=== PATIENT | male | born 1950 | race Caucasian/White ===

== ENCOUNTER 2017-07-12 09:14 | Emergency (ER) | payer MEDICARE ==
[2017-07-12] MEDS ORDERED: Tetan/Diph/Pertus SYR(Tdap)* 0.5 ML SYR(BOOSTRIX) use SYR IM ONE (09:40)
--- NOTE | 2017-07-12 10:10 | UC ---
Dillon Lou SooYoung, scribed for Katty Villarreal MD on 07/12/17 at 0928 . Syncope/New Syncope HPI - HPI Summary HPI Summary: A 67 y/o M presents to [facility] [place] after syncopal episode with LOC onset this AM lasting approx one hour [employer]. Pt states that he stood up to get out of bed, he passed out and fell. He hit his head on something but is unsure what, perhaps his gun rack or clothes dresser. Associated sx: superficial lac to posterior head. Denies: CP, SOB, HUERTA, neck pain, nausea. Pt has numbness/tingling in extremities per baseline. No prev episodes of syncope. Denies heart dz. 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 He is not on blood thinners, aspirin. He is on home O2 all day and night. Last tetanus was approx 4-[address] De La Torre, but the date is uncertain. Agrees to have another today. - History Of Current Complaint Stated Complaint: FALL Hx Obtained From: Patient, Medical Records Onset/Duration: Sudden Onset, Resolved Activity At Onset: At Rest Frequency: Episodes x___ - 1 Context: Unwitnessed Associated Head Trauma: Yes Pain Intensity: 0 Pain Scale Used: 0-10 Numeric Associated Signs And Symptoms: Positive: Other - pos: head lac; neg: nausea. Negative: Chest Pain, Headache, Numbness, Shortness Of Breath - Risk Factors Cardiac Risk Factors: Family History Dysrhythmia Risk Factors: Age Greater Than 45 Risk Factor(s): Negative - Allergies/Home Medications Allergies/Adverse Reactions: Allergies Allergy/AdvReac Type Severity Reaction Status Date / Time Meperidine [From Demerol HCl] Allergy Hallucinati Verified 07/12/17 09:28 ons Home Medications: Home Medications Baclofen 5 mg PO DAILY PRN 07/12/17 [History Confirmed 07/12/17] PMH/Surg Hx/FS Hx/Imm Hx - Additional Past Medical History Additional PMH: has had negative stress test the past several years for coronary artery disease Previously Healthy: No Respiratory History: COPD Neurological History: Migraine - HUERTA, Other Other Neurological History: pontine lesion - Surgical History Surgical History: Yes Surgery Procedure, Year, and Place: appy at age 28 - Family History Known Family History: Positive: Other - brother: colon [place] - Social History Occupation: Retired Lives: With Family Alcohol Use: None Substance Use Type: Marijuana Smoking Status (MU): Heavy Every Day Tobacco Smoker - 1ppd Review of Systems Constitutional: Negative Skin: Other - lac to posterior head Eyes: Negative ENT: Negative Respiratory: Negative Cardiovascular: Negative Gastrointestinal: Negative Genitourinary: Negative Motor: Negative Neurovascular: Negative Musculoskeletal: Negative Neurological: Other - syncope with LOC; no persistent headache. No ataxia. Psychological: Negative Is Patient Immunocompromised?: No All Other Systems Reviewed And Are Negative: Yes Physical Exam Triage Information Reviewed: Yes Completion Of Physical Exam Limited Due To: Other - oxygen depenedent, mildly overweight elderly man. Looks stated age. Alert and oriented. Appearance: Ill-Appearing - looks chronically unwell Vital Signs: Initial Vital Signs Temp 98.4 F 07/12/17 09:18 Pulse 116 07/12/17 09:18 Resp 22 07/12/17 09:18 BP 167/81 07/12/17 09:18 Pulse Ox 95 07/12/17 09:18 Eyes: Positive: Conjunctiva Clear, Other: - GAVIN, cannot see fundi well. Normal EOM ENT: Positive: Pharynx normal, TMs normal Neck: Positive: Supple, Nontender, No Lymphadenopathy Respiratory: Positive: Decreased breath sounds - to both bases, but without crackle or wheeze. Mildly prolonged expiration Cardiovascular: Positive: RRR, No Murmur Abdomen Description: Positive: Nontender, Soft Musculoskeletal: Positive: Strength Intact, No Edema Neurological: Positive: Alert, Muscle Tone Normal, Other: - No pronator drift. Psychological Exam: Other - mildly irritable, but he describes himself as such at baseline. Skin Exam: Other - 12 mm superficial laceration left occipital area. Not full thickness, no associated hematoma. No active bleeding. Treated with glue with good approximation and no bleeding. Diagnostics - EKG Cardiac Rate: Tachycardia Cardiac Rhythm: Sinus: Normal Ectopy: None ST Segment: Normal Re-Evaluation - Re-Evaluation First Eval Re-Evaluation Time: 08:50 Change: Improved - bleeding stopped, alert and moving well. Syncope Course/Dx - Course Course Of Treatment: A 67 y/o M with COPD, pontine lesion presents after syncopal episode with LOC onset this AM lasting approx one hour. Reviewed Brain CT after head injury in 2008, and MRI report from 2006. Pt medications reviewed this visit. BP is elevated, PCP f/u recommended. - Differential Dx/Diagnosis Provider Diagnoses: 2. Elevated blood pressure without diagnosis of hypertension. Discharge - Discharge Plan Condition: Stable Disposition: AGAINST MEDICAL ADVICE Patient Education Materials: Diphtheria/Acellular Pertussis/Tetanus Booster Vaccine (By injection) Referrals: Kevin Green MD [Primary Care Provider] - Additional Instructions: Your blood pressure reading today was 167/81, which is HYPERTENSIVE. Follow-up with your primary care provider within 4 weeks for blood pressure readings and further evaluation. You have had a tetanus booster today because of your head wound. You ahve been advised to GO IMMEDIATELY TO THE EMERGENCY ROOM. IT IS ADVISED THAT YOU HAVE BRAIN IMAGING BECAUSE OF AN INJURY TO YOUR HEAD WITH LOSS OF CONSCIOUSNESS. YOU HAVE DELCINED AMBULANCE TRANSPORT. The documentation as recorded by the Dillon wolff SooYoung accurately reflects the service I personally performed and the decisions made by me, Katty Villarreal MD.
[2017-07-12 10:12] VITALS: BP 148/73
== END 2017-07-12 10:15 | disposition left against medical advice (07) ==
LOC: UCEAST 09:14
DX: R03.0 Elevated blood-pressure reading, without diagnosis of hypertension (principal); J44.9 Chronic obstructive pulmonary disease, unspecified; G43.909 Migraine, unspecified, not intractable, without status migrainosus; F12.90 Cannabis use, unspecified, uncomplicated; F17.210 Nicotine dependence, cigarettes, uncomplicated
CPT/HCPCS: 90471; 90715; 93005; 99212; G0463

== ENCOUNTER 2017-07-12 10:35 | Emergency (ER) | payer MEDICARE ==
[2017-07-12 10:44] VITALS: BP 146/81
--- NOTE | 2017-07-12 11:36 | RAD ---
Indication: Contusion, history of pontine tumor. CT of the brain was performed without IV contrast. Ventricular structures are midline. No midline shift is noted. The extra-axial spaces are unremarkable. There is no evidence of intracranial mass or hemorrhage. No other high or low signal lesions are identified. Mastoid air cells are well aerated. Mucosal thickening and air-fluid levels are noted in the sphenoid and ethmoid air cells. IMPRESSION: No evidence of intracranial mass or hemorrhage is noted. No significant change is noted since February 05, 2009. Likely chronic sinusitis involving the ethmoids and sphenoids.
--- NOTE | 2017-07-12 16:08 | ED ---
Harini Lou Alfonso, scribed for Kevin Storm MD on 07/12/17 at 1117 . Complex/Multi-Sys Presentation - HPI Summary HPI Summary: This patient is a 67 year old M presenting from [facility] to [facility] accompanied by male with a chief complaint of syncope at approximately 0500 today. He states I fell out of bed and cracked my head. The patient rates the pain 0/10 in severity. Symptoms aggravated by nothing. Symptoms alleviated by spontaneous resolution. Patient reports head trauma (occipital head), and LOC. - History Of Current Complaint Chief Complaint: EDHeadInjury Time Seen by Provider: 07/12/17 10:44 Hx Obtained From: Patient Onset/Duration: Sudden Onset, Lasting Hours - 0500 today, Still Present Timing: Constant Severity Currently: None Aggravating Factor(s): nothing Alleviating Factor(s): spontaneous resolution Associated Signs And Symptoms: Positive: Other - head trauma (occipital head), and LOC. - Allergies/Home Medications Allergies/Adverse Reactions: Allergies Allergy/AdvReac Type Severity Reaction Status Date / Time Meperidine [From Demerol HCl] Allergy Hallucinati Verified 07/12/17 09:28 ons PMH/Surg Hx/FS Hx/Imm Hx Endocrine/Hematology History: Denies: Hx Diabetes, Hx Thyroid Disease Cardiovascular History: Denies: Hx Hypertension Respiratory History: Reports: Hx Chronic Obstructive Pulmonary Disease (COPD) Denies: Hx Asthma GI History: Denies: Hx Ulcer - Surgical History Surgery Procedure, Year, and Place: appy at age 28 Infectious Disease History: No Infectious Disease History: Denies: Hx Clostridium Difficile, Hx Hepatitis, Hx Human Immunodeficiency Virus (HIV), Hx of Known/Suspected MRSA, Hx Shingles, Hx Tuberculosis, Hx Known/ Suspected VRE, Hx Known/Suspected VRSA, History Other Infectious Disease, Traveled Outside the [place] in Last 30 Days - Family History Known Family History: Positive: Other - brother: colon [place] - Social History Alcohol Use: None Substance Use Type: Reports: Marijuana Smoking Status (MU): Heavy Every Day Tobacco Smoker Type: Cigarettes Amount Used/How Often: 1-1.5 ppd Review of Systems Negative: Fever Neurological: Other - head trauma, LOC Positive: Syncope All Other Systems Reviewed And Are Negative: Yes Physical Exam - Summary Physical Exam Summary: VITAL SIGNS: Reviewed. GENERAL: Patient is a well-developed and nourished male who is lying comfortable in the stretcher. Patient is not in any acute respiratory distress. HEAD AND FACE: No signs of trauma. No ecchymosis, hematomas or skull depressions. No sinus tenderness. EYES: PERRLA, EOMI x 2, No injected conjunctiva, no nystagmus. EARS: Hearing grossly intact. Ear canals and tympanic membranes are within normal limits. MOUTH: Oropharynx within normal limits. NECK: Supple, trachea is midline, no adenopathy, no JVD, no carotid bruit, no c- spine tenderness, neck with full ROM. CHEST: Symmetric, no tenderness at palpation LUNGS: Clear to auscultation bilaterally. No wheezing or crackles. Decreased breath sounds. CVS: Regular rate and rhythm, S1 and S2 present, no murmurs or gallops appreciated. ABDOMEN: Soft, non-tender. No signs of distention. No rebound no guarding, and no masses palpated. Bowel sounds are normal. EXTREMITIES: FROM in all major joints, no edema, no cyanosis or clubbing. NEURO: Alert and oriented x 3. No acute neurological deficits. Speech is normal and follows commands. SKIN: Dry and warm. Laceration glued at [facility] at the occipital area of scalp. It is not actively bleeding. GCS: 15 Triage Information Reviewed: Yes Vital Signs On Initial Exam: Initial Vitals Temp Pulse Resp BP Pulse Ox 98.2 F 102 18 146/81 95 07/12/17 10:40 07/12/17 10:40 07/12/17 10:40 07/12/17 10:40 07/12/17 10:40 Vital Signs Reviewed: Yes - Cogswell Coma Scale Best Eye Response: 4 - Spontaneous Best Motor Response: 6 - Obeys Commands Best Verbal Response: 5 - Oriented Coma Scale Total: 15 Diagnostics - Vital Signs Vital Signs Temp Pulse Resp BP Pulse Ox 07/12/17 10:40 98.2 F 102 18 146/81 95 - Laboratory Lab Statement: Any lab studies that have been ordered have been reviewed, and results considered in the medical decision making process. - CT Brain CT Interpretation Completed By: Radiologist - No evidence of intracranial mass or hemorrhage is noted. No significant change is noted since February 05, 2009. Likely chronic sinusitis involving the ethmoids and sphenoids. ED physician has reviewed this radiology report and agrees. Complex Multi-Symp Course/Dx Assessment/Plan: This patient is a 67 year old M presenting from [facility] to [facility] accompanied by male with a chief complaint of syncope at approximately 0500 today. He states I fell out of bed and cracked my head. The patient rates the pain 0/10 in severity. Symptoms aggravated by nothing. Symptoms alleviated by spontaneous resolution. Patient reports head trauma (occipital head), and LOC. CT brain reveals No evidence of intracranial mass or hemorrhage is noted. No significant change is noted since February 05, 2009. Likely chronic sinusitis involving the ethmoids and sphenoids. ED physician has reviewed this radiology report and agrees. The patient is neurological intact. The patient was given instructions to return to the ED immediately if he exeriences lethargy, headache , blurred vison, nausea, and vomiting. He understands and agrees. The patient is hemodynamically stable, alert and oriented x3. - Diagnoses Differential Diagnoses/HQI/PQRI: Closed Cranial Trauma, CVA Provider Diagnoses: Head contusion Discharge - Discharge Plan Condition: Stable Disposition: HOME Patient Education Materials: Contusion in Adults (ED), Scalp Contusion in Adults (ED) Referrals: Kevin Green MD [Primary Care Provider] - 3 Days Additional Instructions: RETURN TO THE EMERGENCY DEPARTMENT FOR CHANGING OR WORSENING SYMPTOMS. The documentation as recorded by the Harini wolff Alfonso accurately reflects the service I personally performed and the decisions made by me, Kevin Storm MD.
== END 2017-07-12 11:44 | disposition home or self-care (01) ==
LOC: ED 10:35
DX: S06.9X9A Unspecified intracranial injury with loss of consciousness of unspecified duration, initial encounter (principal); S00.93XA Contusion of unspecified part of head, initial encounter; W06.XXXA Fall from bed, initial encounter; Y92.003 Bedroom of unspecified non-institutional (private) residence as the place of occurrence of the external cause; F17.210 Nicotine dependence, cigarettes, uncomplicated; Z88.8 Allergy status to other drugs, medicaments and biological substances
CPT/HCPCS: 70450; 99281

== ENCOUNTER 2017-09-01 11:27 | Inpatient (IN) | payer MEDICARE ==
[2017-09-01] MEDS ORDERED: methylPREDNISolone 125 MG* 2 ML VIAL IV ONE (11:37)
[2017-09-01] MEDS ORDERED: Albuterol/Ipratropium NEB.SOL* Albuterol 2.5 MG/Ipratropium 0.5 MG 3 ML INH ONE (11:37)
[2017-09-01 11:53] LABS: Hematocrit 48 % (42-52); Hemoglobin 16.4 g/dl (14.0-18.0); Mean Corpuscular HGB Conc 34 g/dl (31-36); Mean Corpuscular Hemoglobin 31 pg (27-31); Mean Corpuscular Volume 93 fL (80-94); Mean Platelet Volume 7 um3 (7.4-10.4); Red Blood Count 5.22 10^6/ul (4.0-5.4); Red Cell Distribution Width 13 % (10.5-15); White Blood Count 13.1 10^3/ul (3.5-10.8)
[2017-09-01 12:19] LABS: Troponin I 0.02 ng/mL (<0.04)
[2017-09-01 12:20] LABS: BUN/Creatinine Ratio 10.2 (8-20); Calcium 9.7 mg/dL (8.6-10.3); EGFR African American 175.2 (>60); EGFR Non-African American 136.2 (>60); Potassium 3.6 mmol/L (3.5-5.0); Total Bilirubin 0.4 mg/dL (0.2-1.0)
--- NOTE | 2017-09-01 12:43 | RAD ---
INDICATION: Short of breath COMPARISON: None TECHNIQUE: An AP portable view obtained at 1228 hours is submitted. FINDINGS: Bones/Soft Tissues: There are no acute bony findings. Cardiomediastinal: The cardiomediastinal silhouette is normal. Lungs: There are no infiltrates. Pleura: There are no pleural effusions. Other: None IMPRESSION: NO ACTIVE DISEASE.
[2017-09-01] MEDS ORDERED: Ondansetron INJ* 2 MG/ML VIAL IV PRN (13:25)
[2017-09-01] MEDS ORDERED: Baclofen TAB* 10 MG PO PRN (13:27)
[2017-09-01] MEDS ORDERED: Albuterol HFA INHALER* 8 gm MDI INH PRN (13:27)
[2017-09-01 13:38] LABS: FIO2 3
[2017-09-01 13:45] LABS: PCO2 Arterial 72 mmHg (35-45)
[2017-09-01] MEDS ORDERED: Albuterol 2.5 MG/3 ML NEB.SOL* (0.083%) INH PRN (13:58)
[2017-09-01] MEDS ORDERED: cefTRIAXone(*) 1 GM ADVAN ONE (14:30)
[2017-09-01] MEDS: cefTRIAXone VIAL(*) 1,000 MG in NS 0.9% 50 ML* 50 ML IVPB SCH (14:31)
[2017-09-01] MEDS ORDERED: Albuterol 2.5 MG/3 ML NEB.SOL* (0.083%) INH SCH (15:00)
--- NOTE | 2017-09-01 16:27 | ED ---
Destiny Lou Gabriel, scribed for Eagle Chavarria MD on 09/01/17 at 1139 . Shortness of Breath - HPI Summary HPI Summary: This patient is a 67 year old M BIBA to [facility] with a chief complaint of SOB since [employer]. Symptoms alleviated by nothing. Pt has tried to treat it with home O2 and meds. Patient reports a productive cough with yellow sputum for ten days. - History of Current Complaint Chief Complaint: EDShortnessOfBreath Time Seen by Provider: 09/01/17 11:33 Hx Obtained From: Patient Onset/Duration: Still Present Alleviating Factors: Nothing - Allergy/Home Medications Allergies/Adverse Reactions: Allergies Allergy/AdvReac Type Severity Reaction Status Date / Time Meperidine [From Demerol HCl] Allergy Hallucinati Verified 09/01/17 11:51 ons Home Medications: Home Medications Albuterol HFA INHALER* [Ventolin HFA Inhaler*] 2 puff INH Q6H PRN 09/01/17 [ History Confirmed 09/01/17] Albuterol/Ipratropium NEB.HENNY* [Duoneb (Albuterol 2.5 MG/Ipratropium 0.5 MG)] 1 neb INH BID PRN 09/01/17 [History Confirmed 09/01/17] Baclofen TAB* [Lioresal TAB*] 5 mg PO BID PRN 09/01/17 [History Confirmed ] Butalb/Acetamin/Caff TAB* [Fioricet TAB*] 1 tab PO BID PRN 09/01/17 [History Confirmed 09/01/17] Fluticas/Salmet 115/21 HFA(NF) [Advair HFA 115/21 (NF)] 2 puff INH BID 09/01/17 [History Confirmed 09/01/17] Fluticasone NASAL SPRAY 50MCG* [Flonase NASAL SPRAY 50MCG*] 1 spray BOTH NARES DAILY 09/01/17 [History Confirmed 09/01/17] Gabapentin CAP(*) [Neurontin 300 CAP(*)] 300 mg PO BEDTIME 09/01/17 [History Confirmed 09/01/17] Ibuprofen TAB* [Motrin TAB* 600 MG] 600 mg PO BID PRN 09/01/17 [History Confirmed 09/01/17] Nortriptyline CAP* [Pamelor CAP*] 10 mg PO BEDTIME 09/01/17 [History Confirmed 09/01/17] Tiotropium CAP.INH* [Spiriva CAP.INH*] 1 cap.inh INH DAILY 09/01/17 [History Confirmed 09/01/17] PMH/Surg Hx/FS Hx/Imm Hx Previously Healthy: No Endocrine/Hematology History: Denies: Hx Diabetes, Hx Thyroid Disease Cardiovascular History: Denies: Hx Hypertension Respiratory History: Reports: Hx Chronic Obstructive Pulmonary Disease (COPD) Denies: Hx Asthma GI History: Denies: Hx Ulcer - Surgical History Surgery Procedure, Year, and Place: appy at age 28 Infectious Disease History: No Infectious Disease History: Denies: Hx Clostridium Difficile, Hx Hepatitis, Hx Human Immunodeficiency Virus (HIV), Hx of Known/Suspected MRSA, Hx Shingles, Hx Tuberculosis, Hx Known/ Suspected VRE, Hx Known/Suspected VRSA, History Other Infectious Disease, Traveled Outside the [place] in Last 30 Days - Family History Known Family History: Positive: Other - brother: colon [place] - Social History Alcohol Use: None Substance Use Type: Reports: Marijuana Smoking Status (MU): Heavy Every Day Tobacco Smoker Type: Cigarettes Amount Used/How Often: 1-1.5 ppd Review of Systems Negative: Fever Positive: Shortness Of Breath, Cough - productive All Other Systems Reviewed And Are Negative: Yes Physical Exam - Summary Physical Exam Summary: Appearance: Well-appearing Eyes: Normal, Conjunctiva clear ENT: Normal ENT inspection. Dental: Normal Neck: Supple, non-tender, no lymphadenopathy Lungs: Decreased breath sounds, no accessory muscle use, anterior wheezing bi laterally. Heart: Tachycardia with regular rhythm, no murmur, pulses normal. Abdomen: Nontender, soft. Musculoskeletal: Normal Neurological: Normal Psychiatric: Normal Skin: Normal Triage Information Reviewed: Yes Vital Signs On Initial Exam: Initial Vitals Temp Pulse Resp BP Pulse Ox 97.4 F 126 34 191/106 100 09/01/17 11:35 09/01/17 11:35 09/01/17 11:35 09/01/17 11:35 09/01/17 11:35 Vital Signs Reviewed: Yes Diagnostics - Vital Signs Vital Signs Temp Pulse Resp BP Pulse Ox 09/01/17 11:35 97.4 F 126 34 191/106 100 - Laboratory Lab Results: Lab Results 1109/01/17 09/01/17 Range/Units 11:45 11:45 11:45 WBC 13.1 H (3.5-10.8) 10^3/ul RBC 5.22 (4.0-5.4) 10^6/ul Hgb 16.4 (14.0-18.0) g/dl Hct 48 (42-52) % MCV 93 (80-94) fL MCH 31 (27-31) pg MCHC 34 (31-36) g/dl RDW 13 (10.5-15) % Plt Count 261 (150-450) 10^3/ul MPV 7 L (7.4-10.4) um3 Neut % (Auto) 85.6 H (38-83) % Lymph % (Auto) 5.6 L (25-47) % [place] % (Auto) 7.4 (1-9) % Eos % (Auto) 0.5 (0-6) % Baso % (Auto) 0.9 (0-2) % Absolute Neuts (auto) 11.2 H (1.5-7.7) 10^3/ul Absolute Lymphs (auto) 0.7 L (1.0-4.8) 10^3/ul Absolute Monos (auto) 1.0 H (0-0.8) 10^3/ul Absolute Eos (auto) 0.1 (0-0.6) 10^3/ul Absolute Basos (auto) 0.1 (0-0.2) 10^3/ul Absolute Nucleated RBC 0 10^3/ul Nucleated RBC % 0 INR (Anticoag Therapy) (0.89-1.11) Patient Temperature ABG pH (7.35-7.45) ABG pH (Temp Correct) ABG pCO2 (35-45) mmHg ABG pCO2 (Temp Corrct ABG pO2 (80-100) mmHg ABG pO2 (Temp Correct ABG HCO3 (19-31) mmol/L ABG O2 Saturation (95-98) % ABG Base Excess (-2.0-2.0) Respiration Rate Ventilator Type Vent Mode FiO2 Inspiratory Time PEEP Pressure Support Pressure Control EPAP IPAP BiPAP Sodium 127 L (133-145) mmol/L Potassium 3.6 (3.5-5.0) mmol/L Chloride 82 L (101-111) mmol/L Carbon Dioxide 42 H* (22-32) mmol/L Anion Gap 3 (2-11) mmol/L BUN 6 (6-24) mg/dL Creatinine 0.59 L (0.67-1.17) mg/dL Est GFR ( Amer) 175.2 (>60) Est GFR (Non-Af Amer) 136.2 (>60) BUN/Creatinine Ratio 10.2 (8-20) Glucose 121 H (70-100) mg/dL Lactic Acid (0.5-2.0) mmol/L Calcium 9.7 (8.6-10.3) mg/dL Total Bilirubin 0.40 (0.2-1.0) mg/dL AST 18 (13-39) U/L ALT 14 (7-52) U/L Alkaline Phosphatase 70 (34-104) U/L Troponin I 0.02 (<0.04) ng/mL B-Natriuretic Peptide 33 ( - 100) pg/mL Total Protein 7.0 (6.4-8.9) g/dL Albumin 4.0 (3.2-5.2) g/dL Globulin 3.0 (2-4) g/dL Albumin/Globulin Ratio 1.3 (1-3) 09/01/17 09/01/17 09/01/17 Range/Units 11:45 11:45 13:32 WBC (3.5-10.8) 10^3/ul RBC (4.0-5.4) 10^6/ul Hgb (14.0-18.0) g/dl Hct (42-52) % MCV (80-94) fL MCH (27-31) pg MCHC (31-36) g/dl RDW (10.5-15) % Plt Count (150-450) 10^3/ul MPV (7.4-10.4) um3 Neut % (Auto) (38-83) % Lymph % (Auto) (25-47) % [place] % (Auto) (1-9) % Eos % (Auto) (0-6) % Baso % (Auto) (0-2) % Absolute Neuts (auto) (1.5-7.7) 10^3/ul Absolute Lymphs (auto) (1.0-4.8) 10^3/ul Absolute Monos (auto) (0-0.8) 10^3/ul Absolute Eos (auto) (0-0.6) 10^3/ul Absolute Basos (auto) (0-0.2) 10^3/ul Absolute Nucleated RBC 10^3/ul Nucleated RBC % INR (Anticoag Therapy) 0.98 (0.89-1.11) Patient Temperature Not Reportable ABG pH 7.38 (7.35-7.45) ABG pH (Temp Correct) Not Reportable ABG pCO2 72 H* (35-45) mmHg ABG pCO2 (Temp Corrct Not Reportable ABG pO2 75 L (80-100) mmHg ABG pO2 (Temp Correct Not Reportable ABG HCO3 35.2 H (19-31) mmol/L ABG O2 Saturation 97.4 (95-98) % ABG Base Excess 13.4 H (-2.0-2.0) Respiration Rate Not Reportable Ventilator Type Not Reportable Vent Mode Liters FiO2 3 Inspiratory Time Not Reportable PEEP Not Reportable Pressure Support Not Reportable Pressure Control Not Reportable EPAP Not Reportable IPAP Not Reportable BiPAP Not Reportable Sodium (133-145) mmol/L Potassium (3.5-5.0) mmol/L Chloride (101-111) mmol/L Carbon Dioxide (22-32) mmol/L Anion Gap (2-11) mmol/L BUN (6-24) mg/dL Creatinine (0.67-1.17) mg/dL Est GFR ( Amer) (>60) Est GFR (Non-Af Amer) (>60) BUN/Creatinine Ratio (8-20) Glucose (70-100) mg/dL Lactic Acid 1.3 (0.5-2.0) mmol/L Calcium (8.6-10.3) mg/dL Total Bilirubin (0.2-1.0) mg/dL AST (13-39) U/L ALT (7-52) U/L Alkaline Phosphatase (34-104) U/L Troponin I (<0.04) ng/mL B-Natriuretic Peptide ( - 100) pg/mL Total Protein (6.4-8.9) g/dL Albumin (3.2-5.2) g/dL Globulin (2-4) g/dL Albumin/Globulin Ratio (1-3) Result Diagrams: 09/01/17 11:45 09/01/17 11:45 Lab Statement: Any lab studies that have been ordered have been reviewed, and results considered in the medical decision making process. - Radiology CXR Radiology Interpretation Completed By: Radiologist - No active disease. ED physician has reviewed this radiology report and agrees. - EKG 11:45 Cardiac Rate: Tachycardia EKG Rhythm: Sinus Rhythm - 123 BPM EKG Interpretation: Non- specific lateral ST/T wave changes Course/Dx - Course Course Of Treatment: Mr. Chopra presented C/O SOB and cough for 10 days getting markedly worse this AM. He improved somewhat with a neb in the ambulance. He was given additional nebs and solumedrol here in the ED but continued to be tachycardic and tachypneic. CXR showed only hyperinflation. The hospitalists are admitting him. - Diagnoses Provider Diagnoses: COPD exacerbation - Physician Notifications Discussed Care of Patient With: Mindy Kunz Time Discussed With Above Provider: 12:50 - I discussed patient care with Dr. Kunz and they recommended _ Instructed by Provider To: Admit As Inpatient - Critical Care Time Critical Care Time: 30-74 min Discharge - Discharge Plan Condition: Fair Disposition: ADMITTED TO [facility] The documentation as recorded by the Destiny wolff Gabriel accurately reflects the service I personally performed and the decisions made by me, Eagle Chavarria MD.
[2017-09-01] MEDS: Azithromycin IV(*) 500 MG in NS 0.9% 250 ML* 250 ML IVPB SCH (16:39)
[2017-09-01] MEDS: Enoxaparin(*) 40 MG/0.4 ML SYR SUBCUT SCH (16:40)
[2017-09-01] MEDS: Nicotine PATCH 21 MG/24 HR* PATCH TRANSDERM SCH (16:40)
[2017-09-01] MEDS ORDERED: Spiriva Inhaler DEVICE* 1 EACH DEVICE INH ONE (17:00)
[2017-09-01] MEDS: NS 0.9% w/ 20 Meq KCL 1000 ML* 1,000 ML IV SCH (18:03)
[2017-09-01] MEDS: Tiotropium CAP.INH* CAP.INH/18 MCG (USE ORDER SET !) INH SCH (18:05)
[2017-09-01] MEDS: Spiriva Inhaler DEVICE* 1 EACH DEVICE INH ONE (18:05)
[2017-09-01] MEDS: Albuterol 2.5 MG/3 ML NEB.SOL* (0.083%) INH SCH (18:26)
[2017-09-01] MEDS: methylPREDNISolone SOD 40 MG* 1 ML VIAL IV SCH (19:49)
[2017-09-01] MEDS: Mometasone/Formoter 200/5 MDI INH SCH (19:49)
--- NOTE | 2017-09-01 20:31 | HP ---
HISTORY AND PHYSICAL:* ADDENDUM: Mr. Chopra is a 67-year-old male with history of COPD, who presents with COPD exacerbation. The patient is significantly hypoxemic and his ABG showed chronic CO2 retention. He is going to be admitted to floor on the inpatient service for treatment of his COPD exacerbation. For further details of the patient's presentation and plan, please see history and physical dictated by Diana King NP, on 09/01/17, with which I agree. [id number]/[facility] #: [id number] ROGER
--- NOTE | 2017-09-01 20:47 | HP ---
ATTENDING PHYSICIAN ADDENDUM NOW INCLUDED ON THIS REPORT CC: Dr. Green* HISTORY AND PHYSICAL: DATE OF ADMISSION: 09/01/17 PRIMARY CARE PROVIDER: Dr. Green. ATTENDING PHYSICIAN: Dr. Mindy Kunz * (report dictated by Diana King NP). CHIEF COMPLAINT: Shortness of breath, abdominal discomfort. HISTORY OF PRESENT ILLNESS: The patient is a 67-year-old male with past medical history significant for COPD and pontine brain lesion, who presents to the emergency room with a complaint of shortness of breath. The patient states that he received a flu shot around August 20. Since then, he states the stomach has been upset and he has not been able to eat. He states when he would eat, his stomach would hurt. He denied any episodes of emesis. In the past 3 days, he has become significantly short of breath. He has been coughing up yellow sputum that is occasionally blood tinged. He is also complaining of congestion. The patient also states around the end of the June, he had an episode where he passed out. He came to the emergency room and had a CT of his head that was negative. In the emergency room, the patient was found to be tachycardic with a heart rate up to 120s. Respiratory rate in 20s. The patient was satting 100% on 3 L. The patient had a ABG, which revealed elevated CO2, but with a normal pH, evidence of chronic hypercarbic respiratory failure with compensation. Hospitalists were asked to evaluate the patient for admission and the patient will be admitted with diagnosis of acute COPD exacerbation. PAST MEDICAL HISTORY: COPD, pontine brain lesion. PAST SURGICAL HISTORY: Appendectomy. HOME MEDICATIONS: 1. Baclofen 5 mg oral twice daily as needed. 2. Spiriva 1 capsule inhaled daily. 3. Advair HFA 115/21 two puffs inhaled twice daily. 4. Fioricet 1 tablet oral twice daily as needed. 5. Fluticasone 1 spray to both nares daily. 6. DuoNeb 1 neb inhaled twice daily as needed. 7. Motrin 200 mg oral twice daily. 8. Neurontin 300 mg oral at bedtime. 9. Nortriptyline 10 mg oral at bedtime. 10. Albuterol HFA 2 puffs inhaled every 6 hours as needed. ALLERGIES: DEMEROL. FAMILY HISTORY: The patient's father had a history of heart attack. The patient's brother had cancer of unknown type. Sister had colon cancer. Other brother had lymphoma and mother had brain tumor. SOCIAL HISTORY: The patient continues to smoke. He smokes one pack a day for 50 years. He has an occasional drink, in fact he took some shiv to help try and settle his stomach. He had a variety of various jobs including working in a [employer], the [employer] as well as [employer]. He is . His , Raz Chopra would be the surrogate decision maker because the patient cannot make the decision for himself. REVIEW OF SYSTEMS: I performed a 14-point review of systems. All the pertinent positives and negatives are mentioned in the history of present illness. The remaining review of systems are negative. PHYSICAL EXAMINATION GENERAL APPEARANCE: The patient was alert, pleasant, appeared to be in no apparent distress. VITAL SIGNS: Temperature 97.4, blood pressure 166/82, heart rate 123, respiratory rate 29, oxygen saturation 100%. HEAD, EYES, EARS, NOSE, AND THROAT: Normocephalic/atraumatic. Pupils were equal and reactive to light. Extraocular movements were intact. RESPIRATORY: There was no accessory muscle use and poor air movement bilaterally, significantly diminished at the bases. CARDIAC: S1, S2 were crisp. Rate and rhythm were regular and tachycardic. ABDOMEN: Tense, distended, tender at upper epigastric area. EXTREMITIES: There was no lower extremity edema. DP and PT pulses were 2+ and symmetric. MUSCULOSKELETAL: No clubbing or cyanosis noted. The patient exhibited equal strength in all extremities. NEUROLOGIC: Cranial nerves II through XII are intact. The patient moves all extremities. Lower extremities were intact to light touch. PSYCH: The patient is alert and oriented x3. SKIN: There were no rashes or abnormalities seen. DIAGNOSTIC STUDIES/LABORATORY DATA: Sodium 127, potassium 3.6, chloride 82, CO2 of 42, BUN 6, creatinine 0.5, glucose 121. Lactic acid 1.3. Liver function tests within normal limits. Troponin 0.02. BNP 33. White blood cell count 13.1, hemoglobin 16.4, hematocrit 48, platelets count 261, INR 0.98. Blood gas is pH 7.38, pCO2 of 72, pO2 of 75, bicarb 35.2, base excess 13.2, and oxygen saturation 97.4%. Chest x-ray from today shows no active disease. IMPRESSION: This is a 67-year-old male with past medical history significant for chronic obstructive pulmonary disease, on home oxygen, who presents to the emergency room with worsening shortness of breath. The patient will be admitted for worsening shortness of breath and abdominal discomfort. The patient will be admitted for chronic obstructive pulmonary disease exacerbation. ASSESSMENT AND PLAN: 1. Acute on chronic hypercarbic respiratory failure from chronic obstructive pulmonary disease exacerbation. The patient will be placed on [place] nasal cannula to increase his oxygen flow. The patient does have an elevated CO2, but he is fully compensated with a normal pH. Likely, his baseline CO2 is in the 60s. For the time being, the patient will be placed on the floor with aggressive therapies, which will include IV steroids, standing albuterol nebulizers as well as p.r.n. nebulizer Spiriva and Dulera. In addition, the patient will have ceftriaxone and azithromycin. Hopefully with these medications, the patient's respiratory rate as well as tachycardia will improve. The patient has lost a significant amount of weight in the past month and it is likely that his worsening respiratory status has resulted in decrease of appetite. 2. Abdominal discomfort. The patient states that his abdominal pain has been going on for quite sometime. It seems upper epigastric and may be due to reflux. Additionally, the reflux may also be part of the cause of his COPD exacerbation. He will be given b.i.d. Pepcid for now. For the time being there will be no further imaging obtained yet, if the abdominal pain and appetite do not improve, further imaging/procedures may be indicated. 3. History of migraines and headache, p.r.n. baclofen as well as nortriptyline will continue. 4. DVT prophylaxis. The patient is at moderate risk. He will have subcu Lovenox. 5. Fluids, electrolytes, and nutrition. The patient does look to be little bit dehydrated. He will have 2 L of IV fluid with potassium and basic metabolic panel will be rechecked in the morning. 6. Code status: Full. TIME SPENT: Time for this admission was 60 minutes, and 30 minutes was spent with the patient and the family reviewing medications, history and events leading up to his arrival in the emergency room. Reviewed by DIANA KING NP 09/02/2017 [id number] ADDENDUM: Mr. Chopra is a 67-year-old male with history of COPD, who presents with COPD exacerbation. The patient is significantly hypoxemic and his ABG showed chronic CO2 retention. He is going to be admitted to floor on the inpatient service for treatment of his COPD exacerbation. For further details of the patient's presentation and plan, please see history and physical dictated by Diana King NP, on 09/01/17, with which I agree. MINDY KUNZ MD [id number]/CPS #: [id number]/CPS #: [id number] ROGER
[2017-09-01] MEDS ORDERED: Famotidine IV * 20 MG in NS 0.9% 100 ML* 100 ML IVPB SCH (21:00)
[2017-09-01] MEDS: Gabapentin CAP(*) 300 MG PO SCH (21:25)
[2017-09-01] MEDS: Nortriptyline CAP* 10 MG PO SCH (21:25)
[2017-09-01] MEDS: Famotidine IV* 10 MG/ML 2 ML (20 mg) IV SCH (21:26)
[2017-09-01] MEDS: Acetaminophen TAB* 325 MG PO PRN (21:26)
[2017-09-01] MEDS: Fluticasone NASAL SPRAY 50MCG* 16 gm SPRAY BTL BOTH NARES SCH (21:27)
[2017-09-01] MEDS: Nicotine Patch Removal NOTE FOLLOW UP SCH (21:27)
[2017-09-02] MEDS: Albuterol 2.5 MG/3 ML NEB.SOL* (0.083%) INH SCH ×4 (00:39→20:16)
[2017-09-02] MEDS: NS 0.9% w/ 20 Meq KCL 1000 ML* 1,000 ML IV SCH (02:14)
[2017-09-02] MEDS: methylPREDNISolone SOD 40 MG* 1 ML VIAL IV SCH ×3 (03:57→20:17)
[2017-09-02] MEDS: Mometasone/Formoter 200/5 MDI INH SCH ×2 (07:37→20:17)
[2017-09-02] MEDS: Tiotropium CAP.INH* CAP.INH/18 MCG (USE ORDER SET !) INH SCH (07:37)
[2017-09-02] MEDS: Spiriva Inhaler DEVICE* 1 EACH DEVICE INH ONE (07:38)
--- NOTE | 2017-09-02 08:45 | PN ---
Subjective Date of Service: 09/02/17 Interval History: Patient seen and examined at bedside. Patient reports improved breathing. HR improved. Still reporting abdominal discomfort after eating, yet ate eggs this morning without discomfort. Family History: Unchanged from Admission Social History: Unchanged from Admission Past Medical History: Unchanged from Admission Objective Active Medications: Acetaminophen (Tylenol Tab*) 650 mg PO Q4H PRN Albuterol (Ventolin 2.5 Mg/3 Ml Neb.Wendy*) 2.5 mg INH Q2H PRN Albuterol (Ventolin 2.5 Mg/3 Ml Neb.Wendy*) 2.5 mg INH RT.[id number] AWAKE TERRANCE Baclofen (Lioresal Tab*) 5 mg PO BID PRN Device (Tiotropium Inhaler Device*) 1 each INH 0900 ONE Enoxaparin Sodium (Lovenox(*)) 40 mg SUBCUT Q24H TERRANCE Famotidine (Pepcid Iv*) 20 mg IV BID TERRANCE Fluticasone Propionate (Flonase Nasal [place] 50mcg*) 1 spray BOTH NARES 2100 TERRANCE Gabapentin (Neurontin Cap(*)) 300 mg PO BEDTIME TERRANCE Ceftriaxone Sodium 1,000 mg/ (Sodium Chloride) 50 mls @ 200 mls/hr IVPB Q24H TERRANCE Azithromycin 500 mg/ Sodium (Chloride) 250 mls @ 250 mls/hr IVPB Q24H TERRANCE Potassium Chloride/Sodium Chloride (Ns 0.9% W/ 20 Meq Kcl 1000 Ml*) 1,000 mls @ 125 mls/hr IV PER RATE TERARNCE Methylprednisolone Sodium Succinate (Solu-Medrol 40 Mg) 40 mg IV Q8H TERRANCE Mometasone Furoate/Formoterol Fumar (Dulera 200/5 Mdi*) 2 puff INH BID TERRANCE Nicotine (Nicotine Patch 21 Mg/24 Hr*) 1 patch TRANSDERM DAILY TERRANCE Nortriptyline HCl (Pamelor Cap*) 10 mg PO BEDTIME TERRANCE Ondansetron HCl (Zofran Inj*) 4 mg IV Q6H PRN Pharmacy Profile Note (Nicotine Patch Removal Note*) 1 note FOLLOW UP 2100 TERRANCE Tiotropium [place] (Spiriva Cap.Inh*) 1 cap INH DAILY TERRANCE Vital Signs Temp Pulse Resp BP Pulse Ox 97.4 F 101 16 148/74 100 09/02/17 04:00 09/02/17 07:42 09/02/17 07:42 09/02/17 04:00 09/02/17 07:42 Oxygen Devices in Use Now: Nasal Cannula Appearance: sitting up in bed, NAD Eyes: No Scleral Icterus, PERRLA Ears/Nose/Mouth/Throat: NL Teeth, Lips, Gums Neck: NL Appearance and Movements; NL JVP Respiratory: Symmetrical Chest Expansion and Respiratory Effort, - - decreased air flow bilaterally; wheezing in upper chest Cardiovascular: NL Sounds; No Murmurs; No JVD, RRR, No Edema Abdominal: - - tenderness upper epigastric area to palpation; ND, BSx4 Extremities: No Edema Skin: No Rash or Ulcers Neurological: Alert and Oriented x 3, NL Muscle Strength and Tone Lines/Tubes/Other Access: Clean, Dry and Intact Peripheral IV Result Diagrams: 09/01/17 11:45 09/01/17 11:45 Additional Lab and Data: . Microbiology and Other Data: . Assess/Plan/Problems-Billing Patient is a 67 y/o M w/ PMH significant for COPD who presented to the ED w/ the c/o of SOB and abdominal pain found to have acute on chronic hypercarbi respiratory failure. - Patient Problems (1) Acute and chronic respiratory failure with hypercapnia Comment: Improved. Repat labs pending for this AM. Patient has chronic CO2 retention. Tachycardia and tachypnea improved. Continue IV steroids, standing nebs, inhaled steroids, and antibiotics. Suspect reflux could be the source of exacerbation. (2) COPD exacerbation Comment: See above. Continue multi-drug therapy with IV steroids, bronchodilators, inhaled steroid sand supplemental oxygen. (3) Epigastric abdominal pain of unknown etiology Comment: Suspect reflux. Continue BID Pepcid. GI consulted yet now may not be the best time for an upper endoscopy given respiratory status. (4) DVT prophylaxis Comment: SQ Lovenox (5) Full code status Status and Disposition: Inpatient for COPD exacerbation. Plan to discharge home when stable.
[2017-09-02 08:57] LABS: Hematocrit 47 % (42-52); Hemoglobin 16.1 g/dl (14.0-18.0); Mean Corpuscular HGB Conc 34 g/dl (31-36); Mean Corpuscular Hemoglobin 32 pg (27-31); Mean Corpuscular Volume 93 fL (80-94); Mean Platelet Volume 7 um3 (7.4-10.4); Red Blood Count 5.08 10^6/ul (4.0-5.4); Red Cell Distribution Width 13 % (10.5-15); White Blood Count 8.4 10^3/ul (3.5-10.8)
[2017-09-02] MEDS ORDERED: Tiotropium CAP.INH* CAP.INH/18 MCG (USE ORDER SET !) INH SCH (09:00)
[2017-09-02 09:08] LABS: BUN/Creatinine Ratio 10.9 (8-20); EGFR African American 189.9 (>60); EGFR Non-African American 147.7 (>60); Potassium 4.5 mmol/L (3.5-5.0)
[2017-09-02] MEDS: Famotidine IV* 10 MG/ML 2 ML (20 mg) IV SCH ×2 (10:41→22:11)
[2017-09-02] MEDS: Nicotine PATCH 21 MG/24 HR* PATCH TRANSDERM SCH (10:42)
[2017-09-02] MEDS: Docusate CAP* 100 MG PO SCH ×2 (10:42→22:10)
[2017-09-02] MEDS: Polyethylene Glycol 3350* 17 GM PACKET PO SCH (10:42)
[2017-09-02] MEDS ORDERED: Saline NASAL SPRAY 0.65%* BTL BOTH NARES PRN (13:23)
[2017-09-02] MEDS: cefTRIAXone VIAL(*) 1,000 MG in NS 0.9% 50 ML* 50 ML IVPB SCH (14:49)
[2017-09-02] MEDS: Enoxaparin(*) 40 MG/0.4 ML SYR SUBCUT SCH (14:53)
[2017-09-02] MEDS: Azithromycin IV(*) 500 MG in NS 0.9% 250 ML* 250 ML IVPB SCH (15:47)
--- NOTE | 2017-09-02 22:00 | CONS ---
CONSULTATION REPORT: DATE OF CONSULT: 09/02/17 REQUESTING PROVIDER: Diana King NP INDICATION: Abdominal pain. NARRATIVE: Mr. Chopra is a pleasant 67-year-old gentleman with a history of COPD and pontine brain lesion, who has a history of appendectomy, who comes in with COPD exacerbation. He seems to be doing slightly better from that; however , while here, he complained of 10 to 12 days of abdominal pain. He had generalized abdominal pain; however, he does have predominance of epigastric pain. He does take nonsteroidals on a regular basis, 2 pills every day. No nausea. No vomiting. Denies any unintentional weight loss. No blood in the stool. There has been no change in his bowel habits. No diarrhea or constipation. He has never had pain like this before. He denies any hematemesis or melena. He states that he believes that he developed pain from a flu shot. MEDICATIONS: Include: 1. Baclofen. 2. Spiriva. 3. Advair. 4. Fioricet. 5. Fluticasone. 6. DuoNeb. 7. Motrin. 8. Neurontin. 9. Nortriptyline. 10. Albuterol. ALLERGIES: To DEMEROL. FAMILY HISTORY: Coronary artery disease, colon cancer, lymphoma, and brain tumor. He continues to smoke. He does drink alcohol to help settle his stomach. REVIEW OF SYSTEMS: Twelve points were reviewed, other than that mentioned in the HPI were unremarkable. PHYSICAL EXAM: Temperature is 98.2, blood pressure is 154/76, pulse is 91 with respiratory rate of 25. General: Chronically ill-appearing male, in no apparent distress, alert, oriented, pleasant, fluent. HEENT: Mucous membranes are dry without lesions, ulcers, or exudate. Heart: Regular rate and rhythm. Lungs: Diffuse crackles and expiratory wheezing. Abdomen is obese. Positive bowel sounds, soft. He is tender throughout, however, is more so in the epigastrium. He has no rebound or guarding. Skin is warm and dry. He does use accessory muscles for breathing. LABORATORY DATA: Of note, BUN is 6, creatinine 0.55. Platelets 251, hemoglobin 16.1, white count is 8.4. ASSESSMENT AND PLAN: This is a 67-year-old gentleman with severe chronic obstructive pulmonary disease who is slightly improving from admission. He also has abdominal pain. He has multiple etiologies for his abdominal pain given his NSAID history, could be peptic ulcer disease, he could have gastritis , it could be his gallbladder, could be chronic mesenteric ischemia. I think at this point starting with an upper endoscopy would be the best thing; however , his lungs have not improved back to baseline yet. I would recommend that we hold until he is close to baseline. We will reevaluate him tomorrow for possible endoscopy in the next few days. [id number]/[facility] #: [id number] ROGER
[2017-09-02] MEDS: Nortriptyline CAP* 10 MG PO SCH (22:09)
[2017-09-02] MEDS: Fluticasone NASAL SPRAY 50MCG* 16 gm SPRAY BTL BOTH NARES SCH (22:09)
[2017-09-02] MEDS: Acetaminophen TAB* 325 MG PO PRN (22:09)
[2017-09-02] MEDS: Gabapentin CAP(*) 300 MG PO SCH (22:10)
[2017-09-02] MEDS: Senna TAB PO SCH (22:10)
[2017-09-02] MEDS: Nicotine Patch Removal NOTE FOLLOW UP SCH (22:11)
[2017-09-03] MEDS: Albuterol 2.5 MG/3 ML NEB.SOL* (0.083%) INH SCH ×4 (01:19→19:52)
[2017-09-03] MEDS: methylPREDNISolone SOD 40 MG* 1 ML VIAL IV SCH (03:56)
[2017-09-03] MEDS: Mometasone/Formoter 200/5 MDI INH SCH ×2 (07:40→19:53)
[2017-09-03] MEDS: Tiotropium CAP.INH* CAP.INH/18 MCG (USE ORDER SET !) INH SCH (07:41)
[2017-09-03] MEDS: Famotidine IV* 10 MG/ML 2 ML (20 mg) IV SCH ×2 (08:18→20:07)
[2017-09-03] MEDS: Nicotine PATCH 21 MG/24 HR* PATCH TRANSDERM SCH (08:18)
[2017-09-03 08:19] LABS: BUN/Creatinine Ratio 16.7 (8-20); Calcium 9.2 mg/dL (8.6-10.3); EGFR African American 222.3 (>60); EGFR Non-African American 172.8 (>60); Potassium 4.3 mmol/L (3.5-5.0)
[2017-09-03] MEDS: Omeprazole CAP* 20 MG PO SCH (08:19)
[2017-09-03] MEDS: Acetaminophen TAB* 325 MG PO PRN ×3 (08:19→20:09)
[2017-09-03] MEDS: Docusate CAP* 100 MG PO SCH ×2 (08:19→20:09)
[2017-09-03] MEDS: Polyethylene Glycol 3350* 17 GM PACKET PO SCH (10:33)
--- NOTE | 2017-09-03 11:03 | PN ---
Subjective Date of Service: 09/03/17 Interval History: Patient seen and examined at bedside. Denies fever, chills, chest discomfort, N/ V/D. Pt states that epigastric discomfort has mostly resolved. He reports shortness of breath, that he feels is at his baseline. Pt uses O2 at 3L via [place] at home. Pt states that he is not very ambulatory at home, but will work on walking more here as he reports generalized weakness. Pt reports at baseline he often has "warm spells and chills", he uses fans at home to help with his breathing. Pt is disappointed that he is unable to get his EGD today, but is happy that he is able to eat some food. Family History: Unchanged from Admission Social History: Unchanged from Admission Past Medical History: Unchanged from Admission Objective Active Medications: Acetaminophen (Tylenol Tab*) 650 mg PO Q4H PRN Reason: PAIN Albuterol (Ventolin 2.5 Mg/3 Ml Neb.Wendy*) 2.5 mg INH Q2H PRN Reason: SOB/ WHEEZING Albuterol (Ventolin 2.5 Mg/3 Ml Neb.Wendy*) 2.5 mg INH RT.[id number] AWAKE TERRANCE Baclofen (Lioresal Tab*) 5 mg PO BID PRN Reason: SPASMS Docusate Sodium (Colace Cap*) 100 mg PO BID TERRANCE Enoxaparin Sodium (Lovenox(*)) 40 mg SUBCUT Q24H TERRANCE Famotidine (Pepcid Iv*) 20 mg IV BID TERRANCE Fluticasone Propionate (Flonase Nasal [place] 50mcg*) 1 spray BOTH NARES 2100 TERRANCE Gabapentin (Neurontin Cap(*)) 300 mg PO BEDTIME TERRANCE Ceftriaxone Sodium 1,000 mg/ (Sodium Chloride) 50 mls @ 200 mls/hr IVPB Q24H TERRANCE Azithromycin 500 mg/ Sodium (Chloride) 250 mls @ 250 mls/hr IVPB Q24H TERRANCE Methylprednisolone Sodium Succinate (Solu-Medrol 40 Mg) 40 mg IV Q8H TERRANCE Mometasone Furoate/Formoterol Fumar (Dulera 200/5 Mdi*) 2 puff INH BID TERRANCE Nicotine (Nicotine Patch 21 Mg/24 Hr*) 1 patch TRANSDERM DAILY TERRANCE Nortriptyline HCl (Pamelor Cap*) 10 mg PO BEDTIME TERRANCE Omeprazole (Prilosec Cap*) 40 mg PO DAILY@0730 [facility] Ondansetron HCl (Zofran Inj*) 4 mg IV Q6H PRN Reason: NAUSEA Pharmacy Profile Note (Nicotine Patch Removal Note*) 1 note FOLLOW UP 2100 [facility] Polyethylene Glycol/Electrolytes (Miralax*) 17 gm PO DAILY [facility] Senna (Senokot Tab*) 2 tab PO BEDTIME [facility] Sodium Chloride (Sodium Chloride 0.65% Nasal [place]*) 1 spray BOTH NARES Q4H PRN Reason: dry nose Tiotropium [place] (Spiriva Cap.Inh*) 1 cap INH DAILY [facility] Vital Signs 09/02/17 09/02/17 09/02/17 11:27 13:34 16:00 Temperature 98.2 F Pulse Rate 113 110 Respiratory 20 16 Rate Blood Pressure 154/76 (mmHg) O2 Sat by Pulse 100 100 Oximetry 09/02/17 09/02/17 09/02/17 16:52 19:49 20:00 Temperature 98.5 F 98.4 F Pulse Rate 116 113 116 Respiratory 18 24 22 Rate Blood Pressure 158/76 141/75 (mmHg) O2 Sat by Pulse 100 98 100 Oximetry 09/02/17 09/02/17 09/02/17 20:19 22:10 23:17 Temperature 98.6 F Pulse Rate 116 Respiratory 22 22 Rate Blood Pressure 177/88 (mmHg) O2 Sat by Pulse 100 96 Oximetry 09/03/17 09/03/17 09/03/17 00:00 03:43 03:44 Temperature 98.0 F Pulse Rate 100 Respiratory 20 20 Rate Blood Pressure 160/78 143/64 (mmHg) O2 Sat by Pulse 97 97 Oximetry 09/03/17 09/03/17 07:42 07:43 Temperature 98.0 F Pulse Rate 108 73 Respiratory 15 16 Rate Blood Pressure 151/77 (mmHg) O2 Sat by Pulse 99 96 Oximetry Oxygen Devices in Use Now: Nasal Cannula - 3 L Appearance: NAD, sitting up in bed Ears/Nose/Mouth/Throat: Mucous Membranes Moist Respiratory: Symmetrical Chest Expansion and Respiratory Effort, Clear to Auscultation - , diminished and a few wheezes noted on right side Cardiovascular: NL Sounds; No Murmurs; No JVD, RRR Abdominal: NL Sounds; No Tenderness; No Distention Extremities: No Edema Neurological: Alert and Oriented x 3, NL Muscle Strength and Tone Lines/Tubes/Other Access: Clean, Dry and Intact Peripheral IV - site benign Nutrition: Taking PO's Result Diagrams: 09/02/17 08:40 09/03/17 07:35 Assess/Plan/Problems-Billing Mr. Chopra is a 67 y/o M w/ PMH significant for COPD who presented to the ED w/ the c/o of SOB and abdominal pain found to have acute on chronic hypercarbic respiratory failure. - Patient Problems (1) Acute and chronic respiratory failure with hypercapnia Code(s): J96.22 - ACUTE AND CHRONIC RESPIRATORY FAILURE WITH HYPERCAPNIA SNOMED Code(s): 7036345715628 Comment: - Improved, Patient has chronic CO2 retention. - Tachycardia improved and tachypnea resolved. - Continue steroids (change to PO in the AM), standing nebs, inhaled steroids, and antibiotics. - Suspect reflux could be the source of exacerbation. (2) COPD exacerbation Code(s): J44.1 - CHRONIC OBSTRUCTIVE PULMONARY DISEASE W (ACUTE) EXACERBATION SNOMED Code(s): 239235018324637 Comment: See above. Continue multi-drug therapy with steroids (change to PO in AM), bronchodilators, inhaled steroids and supplemental oxygen. (3) Epigastric abdominal pain of unknown etiology Code(s): R10.13 - EPIGASTRIC PAIN SNOMED Code(s): 552928663 Comment: - Suspect reflux. - GI consulted, input appreciated. Plan for EGD in AM. - Continue BID Pepcid. (4) DVT prophylaxis Code(s): XMK5086 - SNOMED Code(s): 071862849 Comment: SQ Lovenox (5) Full code status Code(s): Z78.9 - OTHER SPECIFIED HEALTH STATUS SNOMED Code(s): 881489191 Status and Disposition: Inpatient for COPD exacerbation. Plan to discharge home when stable.
[2017-09-03] MEDS: cefTRIAXone VIAL(*) 1,000 MG in NS 0.9% 50 ML* 50 ML IVPB SCH (14:30)
[2017-09-03] MEDS: Enoxaparin(*) 40 MG/0.4 ML SYR SUBCUT SCH (14:37)
[2017-09-03] MEDS: Azithromycin IV(*) 500 MG in NS 0.9% 250 ML* 250 ML IVPB SCH (15:31)
--- NOTE | 2017-09-03 19:36 | PN ---
Progress Note - Progress Note Date of Service: 09/03/17 - Gastroenterology Note: Patient seen and examined this morning. No new overnight issues. Feels better. No nausea/emesis. SOB improved and back to baseline per patient. Admits to on- going epigastric pain. No chest pain. Constipated for 3 days. Vital Signs: Temp Pulse Resp BP Pulse Ox 98.1 F 112 16 150/70 96 09/03/17 14:45 09/03/17 14:45 09/03/17 14:45 09/03/17 14:45 09/03/17 17:35 GENERAL: NAD, AAOx3. HEENT: Anicteric sclera B/L. CV: RRR. PULM: Decreased air movement throughout. No wheezing. ABDOMEN: Obese, NT/ND.soft. EXTREMITIES: No edema. Laboratory Results - last 24 hr 09/03/17 07:35 Sodium 130 L Potassium 4.3 Chloride 90 L Carbon Dioxide 38 H Anion Gap 2 BUN 8 Creatinine 0.48 L Est GFR ( Amer) 222.3 Est GFR (Non-Af Amer) 172.8 BUN/Creatinine Ratio 16.7 Glucose 130 H Calcium 9.2 A/P: 67 yo with COPD on home O2 who presented with acute COPD exacerbation and epigastric pain associated with NSAID use. Breathing has improved today. GI was consulted for EGD to determine whether GERD is causing COPD exacerbations. 1. Epigastric pain ~Continues to remain persistent. ~PPI daily. ~Hx of NSAID use, tobacco and marijuana use. ~EGD moved to tomorrow due to anesthesia availability. ~General diet today but NPO after midnight for EGD with Anesthesia assistance tomorrow. 2. COPD exacerbation on home O2 ~On abx and nebs. 3. Pontine brain lesion ~Gabapentin, Nortriptyline, Balcofen, Fioricet. 4. Constipation ~On miralax and senna. 5. Tobacco and Marijuana use D/w primary team. Please call with further questions or concerns. Shelly Patel D.O.
[2017-09-03] MEDS: Nortriptyline CAP* 10 MG PO SCH (20:08)
[2017-09-03] MEDS: Senna TAB PO SCH (20:08)
[2017-09-03] MEDS: Gabapentin CAP(*) 300 MG PO SCH (20:08)
[2017-09-03] MEDS: Fluticasone NASAL SPRAY 50MCG* 16 gm SPRAY BTL BOTH NARES SCH (20:09)
[2017-09-03] MEDS: Nicotine Patch Removal NOTE FOLLOW UP SCH (20:11)
[2017-09-04] MEDS ORDERED: Temazepam CAP* 15 MG PO ONE (01:01)
[2017-09-04] MEDS: Albuterol 2.5 MG/3 ML NEB.SOL* (0.083%) INH SCH ×3 (01:21→12:40)
[2017-09-04 07:00] LABS: BUN/Creatinine Ratio 16.7 (8-20); Calcium 8.7 mg/dL (8.6-10.3); EGFR Non-African American 150.9 (>60); Potassium 3.5 mmol/L (3.5-5.0)
[2017-09-04] MEDS: Mometasone/Formoter 200/5 MDI INH SCH (07:35)
[2017-09-04] MEDS: Tiotropium CAP.INH* CAP.INH/18 MCG (USE ORDER SET !) INH SCH (07:35)
[2017-09-04] MEDS: Famotidine IV* 10 MG/ML 2 ML (20 mg) IV SCH (08:34)
[2017-09-04] MEDS: Docusate CAP* 100 MG PO SCH (08:35)
[2017-09-04] MEDS: Nicotine PATCH 21 MG/24 HR* PATCH TRANSDERM SCH (08:35)
[2017-09-04] MEDS: Omeprazole CAP* 20 MG PO SCH (08:35)
[2017-09-04] MEDS ORDERED: predniSONE TAB* 20 MG PO SCH (09:00)
[2017-09-04] MEDS: Polyethylene Glycol 3350* 17 GM PACKET PO SCH (10:30)
[2017-09-04] MEDS: cefTRIAXone VIAL(*) 1,000 MG in NS 0.9% 50 ML* 50 ML IVPB SCH (14:10)
[2017-09-04] MEDS: Enoxaparin(*) 40 MG/0.4 ML SYR SUBCUT SCH (14:10)
--- NOTE | 2017-09-04 14:14 | PN ---
Subjective Date of Service: 09/04/17 Interval History: Patient seen and examined at bedside. Denies fever, chills, increased shortness of breath (has shortness of breath at baseline), chest discomfort, N/V/D. Pt is frustrated about not being able to eat all day and then not having his procedure today. Pt will need a rollator walker due to easily fatiguing and high risk of fall due to diagnosis of COPD, chronic hypercarbic/hypoxic respiratory failure and bilateral LE weakness. Family History: Unchanged from Admission Social History: Unchanged from Admission Past Medical History: Unchanged from Admission Objective Active Medications: Acetaminophen (Tylenol Tab*) 650 mg PO Q4H PRN Reason: PAIN Albuterol (Ventolin 2.5 Mg/3 Ml Neb.Wendy*) 2.5 mg INH Q2H PRN Reason: SOB/ WHEEZING Albuterol (Ventolin 2.5 Mg/3 Ml Neb.Wendy*) 2.5 mg INH [id number] AWAKE TERRANCE Baclofen (Lioresal Tab*) 5 mg PO BID PRN Reason: SPASMS Docusate Sodium (Colace Cap*) 100 mg PO BID TERRANCE Enoxaparin Sodium (Lovenox(*)) 40 mg SUBCUT Q24H TERRANCE Famotidine (Pepcid Iv*) 20 mg IV BID TERRANCE Fluticasone Propionate (Flonase Nasal [place] 50mcg*) 1 spray BOTH NARES 2100 TERRANCE Gabapentin (Neurontin Cap(*)) 300 mg PO BEDTIME TERRANCE Ceftriaxone Sodium 1,000 mg/ (Sodium Chloride) 50 mls @ 200 mls/hr IVPB Q24H TERRANCE Azithromycin 500 mg/ Sodium (Chloride) 250 mls @ 250 mls/hr IVPB Q24H TERRANCE Mometasone Furoate/Formoterol Fumar (Dulera 200/5 Mdi*) 2 puff INH BID TERRANCE Nicotine (Nicotine Patch 21 Mg/24 Hr*) 1 patch TRANSDERM DAILY TERRANCE Nortriptyline HCl (Pamelor Cap*) 10 mg PO BEDTIME TERRANCE Omeprazole (Prilosec Cap*) 40 mg PO DAILY@0730 TERRANCE Ondansetron HCl (Zofran Inj*) 4 mg IV Q6H PRN Reason: NAUSEA Pharmacy Profile Note (Nicotine Patch Removal Note*) 1 note FOLLOW UP 2100 TERRANCE Polyethylene Glycol/Electrolytes (Miralax*) 17 gm PO DAILY TERRANCE Prednisone (Deltasone Tab*) 40 mg PO DAILY TERRANCE Senna (Senokot Tab*) 2 tab PO BEDTIME TERRANCE Sodium Chloride (Sodium Chloride 0.65% Nasal [place]*) 1 spray BOTH NARES Q4H PRN Reason: dry nose Tiotropium [place] (Spiriva Cap.Inh*) 1 cap INH DAILY TERRANCE Vital Signs 09/03/17 09/03/17 09/03/17 14:45 16:00 17:34 Temperature 98.1 F Pulse Rate 112 Respiratory 16 Rate Blood Pressure 150/70 (mmHg) O2 Sat by Pulse 99 96 79 Oximetry 09/03/17 09/03/17 09/03/17 17:35 19:54 19:56 Temperature Pulse Rate 108 Respiratory 20 Rate Blood Pressure (mmHg) O2 Sat by Pulse 96 99 98 Oximetry 09/03/17 09/03/17 09/03/17 19:59 20:08 23:51 Temperature 98.0 F Pulse Rate 99 Respiratory 20 20 20 Rate Blood Pressure 138/71 (mmHg) O2 Sat by Pulse 99 Oximetry 09/04/17 09/04/17 09/04/17 00:00 01:22 02:55 Temperature Pulse Rate 104 Respiratory 20 20 Rate Blood Pressure (mmHg) O2 Sat by Pulse 99 99 Oximetry 09/04/17 09/04/17 09/04/17 03:47 07:25 07:36 Temperature 97.5 F 97.5 F Pulse Rate 101 104 99 Respiratory 20 19 14 Rate Blood Pressure 141/76 134/67 (mmHg) O2 Sat by Pulse 91 91 99 Oximetry 09/04/17 09/04/17 09/04/17 08:00 11:22 12:42 Temperature 98.0 F Pulse Rate 104 111 Respiratory 14 16 14 Rate Blood Pressure 142/71 (mmHg) O2 Sat by Pulse 98 98 Oximetry Oxygen Devices in Use Now: Nasal Cannula - 3 L Appearance: NAD, sitting up in bed Respiratory: Clear to Auscultation - , diminished. Few expiratory wheezes on the left Cardiovascular: NL Sounds; No Murmurs; No JVD, RRR Abdominal: NL Sounds; No Tenderness; No Distention Extremities: No Edema Skin: No Rash or Ulcers Neurological: Alert and Oriented x 3, NL Muscle Strength and Tone Lines/Tubes/Other Access: Clean, Dry and Intact Peripheral IV - site benign Nutrition: Taking PO's Result Diagrams: 09/02/17 08:40 09/04/17 06:28 Additional Lab and Data: . Microbiology and Other Data: . Assess/Plan/Problems-Billing Mr. Chopra is a 67 y/o M w/ PMH significant for COPD who presented to the ED w/ the c/o of SOB and abdominal pain found to have acute on chronic hypercarbic respiratory failure. - Patient Problems (1) Acute and chronic respiratory failure with hypercapnia Code(s): J96.22 - ACUTE AND CHRONIC RESPIRATORY FAILURE WITH HYPERCAPNIA SNOMED Code(s): 2335498528983 Comment: - Elevated today, Patient has chronic CO2 retention. - Tachycardia improved and tachypnea resolved. - Continue steroids, inhaled steroids, and antibiotics. - Suspect reflux could be the source of exacerbation. (2) COPD exacerbation Code(s): J44.1 - CHRONIC OBSTRUCTIVE PULMONARY DISEASE W (ACUTE) EXACERBATION SNOMED Code(s): 034247450793083 Comment: See above. Continue multi-drug therapy with steroids, bronchodilators, inhaled steroids and supplemental oxygen. (3) Epigastric abdominal pain of unknown etiology Code(s): R10.13 - EPIGASTRIC PAIN SNOMED Code(s): 404055557 Comment: - Suspect reflux. - GI consulted, input appreciated. Plan for EGD outpatient on Thursday. - Continue Omperazole 40 mg daily. (4) DVT prophylaxis Code(s): PJS7619 - SNOMED Code(s): 205394116 (5) Full code status Code(s): Z78.9 - OTHER SPECIFIED HEALTH STATUS SNOMED Code(s): 876778193 Status and Disposition: Inpatient for COPD exacerbation. Stable for discharge to home.
[2017-09-04] MEDS: Azithromycin IV(*) 500 MG in NS 0.9% 250 ML* 250 ML IVPB SCH (14:59)
[2017-09-04 17:19] VITALS: BP 139/76
--- NOTE | 2017-09-05 12:55 | DS ---
CC: Dr. Kevin Green* DISCHARGE SUMMARY: ATTENDING PHYSICIAN: Dr. Des Luciano * (dictated by Maria R Sandoval NP) . PRIMARY CARE PROVIDER: Dr. Kevin Green. DATE OF ADMISSION: 09/01/17. DATE OF DISCHARGE: 09/04/17. PRIMARY DIAGNOSES: 1. COPD exacerbation. 2. Acute on chronic hypercarbic respiratory failure. 3. Abdominal discomfort, suspect possibly secondary to peptic ulcer disease. SECONDARY DIAGNOSIS: Chronic hypoxic respiratory failure. CONSULTATIONS WHILE IN THE HOSPITAL: Dr. Good Winn with Gastroenterology and Dr. Shelly Patel with Gastroenterology. STUDIES WHILE IN THE HOSPITAL: Chest x-ray on 09/01/17. Radiologist's impression: No active disease. DISCHARGE MEDICATIONS: New home medications: 1. Amoxicillin 500 mg oral 3 times daily; take on 09/05 and then stop. 2. Azithromycin 500 mg oral daily; take on 09/05 and the stop. 3. Omeprazole 40 mg oral daily. 4. Prednisone 20 mg tablets take 40 mg oral daily x4 days; followed by 30 mg oral daily for 5 days; followed by 20 mg oral daily for 5 days; followed by 10 mg oral daily for 5 days, then stop. Continued home medications: 1. Baclofen 5 mg oral twice day as needed for muscle spasms. 2. Spiriva 1 capsule inhalation daily. 3. Advair HFA 115/21 two puffs inhalation twice daily. 4. Fioricet 1 tablet oral twice daily as needed for headache. 5. Flonase nasal spray 50 mcg 1 spray to both nares twice daily. 6. DuoNeb 1 neb inhalation twice daily as needed for shortness of breath. 7. Gabapentin 300 mg oral daily. 8. Nortriptyline 10 mg oral daily at bedtime. 9. Albuterol HFA 2 puffs inhalation every 6 hours as needed for shortness of breath or wheeze. HISTORY OF PRESENT ILLNESS/HOSPITAL COURSE: Mr. Chopra is a 67-year-old male with past medical history significant for COPD, chronic hypercarbic and hypoxic respiratory failure, and a pontine brain lesion, who presented to the emergency room with complaints of shortness of breath. The patient stated that since having a flu shot around 08/20, he had had stomach upset and not been able to eat. He stated that when he ate, his stomach then hurts. He denied any episodes of emesis. Over the 3 days prior to his presentation, he became increasingly short of breath, began coughing up yellow sputum that was occasionally blood tinged and felt congested. The patient also stated that towards the end of June, he had an episode where he passed out. At that time, he had come to the emergency room and had a head CT that was negative. Due to the patient's not feeling well, he presented to the emergency room for further evaluation of his symptoms. While in the emergency room, the patient was found to be tachycardic with the heart rate up into the 120s, respiratory rate in the 20s. His oxygen saturation was 100% on 3 L, his baseline oxygen requirements. The patient had an ABG that revealed an elevated CO2 with a normal pH and evidence of chronic hypercarbic respiratory failure with compensation. The hospitalists were asked to evaluate the patient for admission. While in the hospital, the patient was treated for a COPD exacerbation with IV ceftriaxone and azithromycin. He was also placed on IV Solu-Medrol. He was not requiring increased oxygen. He was found to have an elevated CO2, but was fully compensated with a normal pH. It was felt that he was likely near his baseline CO2, with the baseline likely around the 60s. The patient also had standing nebulizers. He continued to feel better, but he was complaining of abdominal discomfort. He was seen in consultation by gastroenterology who felt that his breathing status was not appropriate at the time for EGD. He was stated on Pepcid and Protonix and his epigastric discomfort got better. He unfortunately unable to have an EGD while in the hospital as needed to have anesthesia available for his procedure and they were not available. He was feeling better and felt ready to go home. Mr. Chopra is stable for discharge to home today. Vital signs are as follows. Temperature 98.0, heart rate 104, respiratory 16, O2 sat 98% on 3 L via nasal cannula, blood pressure 142/71. DISCHARGE PLAN: Mr. Chopar will be discharged to home today. Activity as tolerated. He should be on a regular diet. As far as the patient's COPD exacerbation, he will receive 1 more day of Augmentin and azithromycin tomorrow to complete his 5-day course of antibiotics. He has been continued on prednisone taper 20 mg tablets, 40 mg oral daily for 4 days; followed by 30 mg oral daily for 5 days; 30 mg oral daily for 5 days; 20 mg oral daily for 5 days , then 10 mg oral daily for 5 days, and then stop. For the patient's epigastric pain and suspect possible gastric ulcers, he has been continued on omeprazole 40 mg oral daily. The patient has an appointment for an EGD on 09/07/17, at 1 p.m. at [facility]. He has been instructed to not eat or drink anything after 8 a.m. on 09/07/17, in preparation for the EGD. He has a followup appointment with his primary care provider, Dr. Green on 09/09/17 at 1:50 p.m. Points for followup: Please continue to follow the patient's CO2 level outpatient as he was elevated on the day of discharge, but I suspect this is around his new baseline. Please assist the patient with establishing with a new proofer prepress, as he has not been happy with the care he has received with Dr. Torres. This is a summarized report of a complex medical history and hospital stay. For further details, please see the entire medical record. The patient has been asked to return to the emergency room for any chest pain or increased shortness of breath. TIME SPENT: Time for this discharge was approximately 50 minutes, greater than half of that was spent with the patient discussing discharge plans and instructions. CONDITION ON DISCHARGE: Improved. Reviewed by SUSY XIONG 09/07/17 1637 [id number]/[facility] #: [id number] ROGER
== END 2017-09-04 17:15 | disposition home health service (06) | DRG 189 ==
LOC: ED 11:27 → MED 12:49 → OBSVTOIN 13:54
PROVIDERS: ADMIT Internal Medicine; ATTEND Internal Medicine
DX: J96.22 Acute and chronic respiratory failure with hypercapnia (principal); J44.1 Chronic obstructive pulmonary disease with (acute) exacerbation; J96.21 Acute and chronic respiratory failure with hypoxia; G93.9 Disorder of brain, unspecified; K25.9 Gastric ulcer, unspecified as acute or chronic, without hemorrhage or perforation; G43.909 Migraine, unspecified, not intractable, without status migrainosus; F17.210 Nicotine dependence, cigarettes, uncomplicated; F12.90 Cannabis use, unspecified, uncomplicated; R53.1 Weakness; Z88.8 Allergy status to other drugs, medicaments and biological substances; Z82.49 Family history of ischemic heart disease and other diseases of the circulatory system; Z80.0 Family history of malignant neoplasm of digestive organs; Z99.81 Dependence on supplemental oxygen; Z80.7 Family history of other malignant neoplasms of lymphoid, hematopoietic and related tissues; K59.00 Constipation, unspecified
CPT/HCPCS: 36415; 36600; 71010; 80048; 80053; 82803; 83605; 83880; 84484; 85025; 85610; 87040; 87070; 87205; 87899; 93005; 94640; 94760; A9270-GY; J0456; J0696; J1650; J2920; J2930; J7512

== ENCOUNTER → 2017-09-07 13:20 | Day surgery (SDC) | payer MEDICARE ==
[~2017-09-07 13:20] MED LIST: Acetaminophen TAB* 325 MG PO PRN; Buffered Lidocaine 0.9% SYRIN* 5 ML/SYR SYRINGE INTRADERM ONE; Buffered Lidocaine 0.9% SYRIN* 5 ML/SYR SYRINGE ONE; HYDROcodone/ACETAMIN 5-325 MG* 1 TAB PO PRN; Ibuprofen TAB* 600 MG PO PRN; Lidocaine 2% PF * 5 ML VIAL ONE; Midazolam* 1 MG/ML 2 ML VIAL (2 MG) ONE; PROCHLORPERAZINE INJ 5 MG/ML 2 ML VIAL IV PRN; Propofol* 10 MG/ML 20 ML BTL IV PUSH ONE; fentaNYL* 50 MCG/ML 2 ML VIAL (100 MCG VIAL) IV PRN
[2017-09-07 13:55] VITALS: BP 142/81
== END | disposition home or self-care (01) ==
LOC: OR 13:20
PROVIDERS: ATTEND Internal Medicine Gastroenterology
DX: R10.9 Unspecified abdominal pain (principal); Z53.09 Procedure and treatment not carried out because of other contraindication
CPT/HCPCS: J2250; J2704

== ENCOUNTER 2018-02-08 10:39 | Emergency (ER) | payer MEDICARE ==
[2018-02-08 11:48] LABS: ABS Basophils 0 10^3/ul (0-0.2); ABS Eosinophils 0.1 10^3/ul (0-0.6); ABS Lymphocytes 0.8 10^3/ul (1.0-4.8); ABS Monocytes 0.9 10^3/ul (0-0.8); ABS Neutrophils 9.3 10^3/ul (1.5-7.7); ABS Nucleated RBC 0 10^3/ul; Eosinophil % 0.5 % (0-6); Hematocrit 45 % (42-52); Hemoglobin 15.3 g/dl (14.0-18.0); Lymphocyte % 7.2 % (25-47); Mean Corpuscular HGB Conc 34 g/dl (31-36); Mean Corpuscular Hemoglobin 31 pg (27-31); Mean Corpuscular Volume 91 fL (80-94); Mean Platelet Volume 6.5 um3 (7.4-10.4); Nucleated Red Blood Cells % 0.1; Platelet Count 275 10^3/ul (150-450); Red Blood Count 4.97 10^6/ul (4.0-5.4); Red Cell Distribution Width 13 % (10.5-15); White Blood Count 11.1 10^3/ul (3.5-10.8)
[2018-02-08 11:59] LABS: INR 0.94 (0.77-1.02)
[2018-02-08 12:04] LABS: EGFR Non-African American 136.2 (>60)
--- NOTE | 2018-02-08 12:31 | RAD ---
HISTORY: Shortness of breath, COPD COMPARISONS: September 01, 2017 VIEWS: 4: Frontal dual-energy and lateral views of the chest. FINDINGS: CARDIOMEDIASTINAL SILHOUETTE: The cardiomediastinal silhouette is normal. KAYODE: The kayode are normal. PLEURA: The costophrenic angles are sharp. No pleural abnormalities are noted. LUNG PARENCHYMA: There is hyperinflation with flattening of the diaphragm and expansion of the AP diameter of the chest. ABDOMEN: The upper abdomen is clear. There is no subphrenic gas. BONES AND SOFT TISSUES: Degenerative changes are noted along the spine. OTHER: None. IMPRESSION: COPD. NO ACTIVE CARDIOPULMONARY DISEASE
[2018-02-08] MEDS ORDERED: Albuterol 2.5 MG/3 ML NEB.SOL* (0.083%) ONE (12:41)
[2018-02-08] MEDS ORDERED: methylPREDNISolone 125 MG* 2 ML VIAL IV ONE (13:14)
[2018-02-08] MEDS ORDERED: Azithromycin IV* 500 MG ADVAN VIAL/BAG IVPB ONE (13:55)
[2018-02-08] MEDS: Azithromycin IV(*) 500 MG in NS 0.9% 250 ML* 250 ML IVPB SCH (14:10)
[2018-02-08 15:06] VITALS: BP 177/94
--- NOTE | 2018-02-08 23:43 | ED ---
Kristin Lou Julia, scribed for Kelly Kaur MD on 02/08/18 at 1122 . Respiratory - HPI Summary HPI Summary: This patient is a 67 year old M BIBA to [facility] accompanied by his with a chief complaint of productive cough with dark sputum and blood and SOB worsening today. Pt has had a recent sinus infection since 01/29/18; he was prescribed Augmentin, which has caused nausea and decreased PO intake. He reports that he was taking a steroid and probiotic with Augmentin beginning 02/05 and stopped taking all of them the next day. Pt reports intermittent fever with sweat over the past couple weeks. Pt use 3L of nasal cannula O2 at baseline. PMHx of COPD. - History of Current Complaint Chief Complaint: EDUpperRespComplaint Stated Complaint: gerneral illness Time Seen by Provider: 02/08/18 10:53 Hx Obtained From: Patient Onset/Duration: Lasting Weeks, Worse Since - today Timing: Constant Pain Intensity: 0 Character: Cough (Productive), Dyspnea at Rest Sputum Amount: Large Sputum Color: Red (Blood) Alleviating Factor(s): Nothing Associated Signs and Symptoms: Fever, SOB, Sinus Infection, Nasal Congestion, Sinus Discomfort Related History: Similar Episode/Dx as - sinus infection, COPD - Allergy/Home Medications Allergies/Adverse Reactions: Allergies Allergy/AdvReac Type Severity Reaction Status Date / Time meperidine [From Demerol] Allergy Intermediate Hallucinati Verified 02/08/18 12: 58 ons warfarin Allergy Intermediate Unknown Verified 02/08/18 12:59 Reaction Details cefuroxime [From Ceftin] Allergy Difficulty Verified 12/25/17 14:33 Breathing Home Medications: Home Medications Benzonatate CAP* 100 mg PO Q4HR 02/08/18 [History Confirmed 02/08/18] Ibuprofen 600 mg PO BID 02/08/18 [History Confirmed 02/08/18] Incruse ELLIPTA MDI (NF) 1 puff PO DAILY 02/08/18 [History Confirmed 02/08/18] Oxycodone Hydrochloride 5 mg PO BID 02/08/18 [History Confirmed 02/08/18] PMH/Surg Hx/FS Hx/Imm Hx Endocrine/Hematology History: Denies: Hx Diabetes, Hx Thyroid Disease Cardiovascular History: Denies: Hx Hypertension, Hx Pacemaker/ICD Respiratory History: Reports: Hx Chronic Obstructive Pulmonary Disease (COPD) Denies: Hx Asthma GI History: Reports: Hx Gastroesophageal Reflux Disease - r/t ibuprofen usage Denies: Hx Ulcer History: Denies: Hx Renal Disease Sensory History: Reports: Hx Contacts or Glasses - glasses Denies: Hx Cataracts, Hx Hearing Aid Opthamlomology History: Reports: Hx Contacts or Glasses - glasses Denies: Hx Cataracts Neurological History: Reports: Hx Headaches - pontine lesion 2006 Psychiatric History: Denies: Hx Panic Disorder - Cancer History Hx Chemotherapy: No - Surgical History Surgery Procedure, Year, and Place: APPENDECTOMY Hx Anesthesia Reactions: No Infectious Disease History: No Infectious Disease History: Denies: Hx Clostridium Difficile, Hx Hepatitis, Hx Human Immunodeficiency Virus (HIV), Hx of Known/Suspected MRSA, Hx Shingles, Hx Tuberculosis, Hx Known/ Suspected VRE, Hx Known/Suspected VRSA, History Other Infectious Disease, Traveled Outside the [place] in Last 30 Days - Family History Known Family History: Positive: Other - brother: colon CA - Social History Lives: With Family Alcohol Use: None Substance Use Type: Reports: None Hx Tobacco Use: Yes - quit 1 year ago Smoking Status (MU): Former Smoker Type: Cigarettes Amount Used/How Often: smoked for 53 years 1-1.5 ppd Review of Systems Positive: Fever, Skin Diaphoresis Positive: Nasal Discharge, Other - sinus pain/infection Positive: Shortness Of Breath, Cough Positive: Nausea All Other Systems Reviewed And Are Negative: Yes Physical Exam - Summary Physical Exam Summary: Appearance: Ill-appearing, no pain distress, Well-nourished, dyspnea at rest, pursed lip breathing, wearing nasal cannula Skin: Warm, color reflects adequate perfusion Head: Normal Head/Face inspection, no sinus tenderness Eyes: Conjunctiva clear ENT: Normal inspection Neck: Supple, no nodes, no JVD. Respiratory: very distant breath sounds, scattered expiratory wheezes, Cardio: RRR, No murmur, pulses normal, brisk capillary refill Chest: Barrel chest Abdomen: soft, nontender Bowel sounds: present Musculoskeletal: Strength Intact/ ROM intact. No calf tenderness. No edema. Psychological: Normal Neuro: Alert, muscle tone normal, no focal deficit Triage Information Reviewed: Yes Vital Signs On Initial Exam: Initial Vitals Temp Pulse Resp BP Pulse Ox 98.4 F 110 16 157/92 99 02/08/18 10:41 02/08/18 10:41 02/08/18 10:41 02/08/18 10:41 02/08/18 10:41 Vital Signs Reviewed: Yes Diagnostics - Vital Signs Vital Signs Temp Pulse Resp BP Pulse Ox 02/08/18 10:41 98.4 F 110 16 157/92 99 - Laboratory Result Diagrams: 02/08/18 11:22 02/08/18 11:22 Lab Statement: Any lab studies that have been ordered have been reviewed, and results considered in the medical decision making process. - Radiology CXR Radiology Interpretation Completed By: Radiologist - COPD. NO ACTIVE CARDIOPULMONARY DISEASE ED Physician has reviewed this report. - EKG 1117 Cardiac Rate: Tachycardia EKG Rhythm: Sinus Tachycardia - at [address] Segment: Non-Specific Ectopy: None EKG Interpretation: nml AVIVCT, nml QTc, nml axis, low voltage, EKG Comparison: No Significant Change - 09/01/17 Re-Evaluation - Re-Evaluation 1 Re-Evaluation Time: 13:50 Comment: SaO2 is 92% on 2L. Pt de leon no complaints. Pt informed of results. Pt will be discharged. Disposition - Course Course Of Treatment: Pt presents with sinus infection, productive cough with bloody sputum, and SOB. PMHx of COPD. PT took one does of Augmentin on 02/04/18, but discontinued due to nausea and discomfort. Spoke with respiratory therapist at 12:50: Ph level of 7.34 is well compensated. PCO2 is at 82 which is higher than it should be so O2 will be turned down so PCO2 returns to normal levels. PO2 is 133. SaO2 is 99.2% on 3L nasal cannula. BE is 13.8. HCO3 is 35.6. CXR reveals no acute findings. Pt is gien Solu-Medrol (IV), Zithromax (IV), and albuterol via nebulizer. Pt is feeling better in ED.Pt will be discharged. - Diagnoses Provider Diagnoses: COPD exacerbation, Bronchitis, Sinusitis Discharge - Sign-Out/Discharge Documenting (check all that apply): Discharge/Admit/Transfer - Discharge Plan Condition: Stable Disposition: HOME Referrals: Kevin Green MD [Primary Care Provider] - 2 Days The documentation as recorded by the Kristin wolff Julia accurately reflects the service I personally performed and the decisions made by me, Kelly Kaur MD.
[2018-02-10] MEDS: Azithromycin IV(*) 500 MG in NS 0.9% 250 ML* 250 ML IVPB SCH (09:00)
== END 2018-02-08 15:14 | disposition home or self-care (01) ==
LOC: ED 10:39
DX: J44.1 Chronic obstructive pulmonary disease with (acute) exacerbation (principal); J32.9 Chronic sinusitis, unspecified; J40 Bronchitis, not specified as acute or chronic; J01.90 Acute sinusitis, unspecified; R50.9 Fever, unspecified; R06.02 Shortness of breath; J45.901 Unspecified asthma with (acute) exacerbation; Z87.891 Personal history of nicotine dependence
CPT/HCPCS: 36415; 36600; 71046; 80053; 82550; 82553; 82803; 83605; 83880; 84145; 84484; 85025; 85379; 85610; 85730; 86140; 87040; 87502; 93005; 96374; 96375; 99283; J0456; J2930

== ENCOUNTER 2018-02-10 20:52 | Inpatient (IN) | payer MEDICARE ==
[2018-02-10] MEDS ORDERED: NS 0.9% 1000 ML* 1,000 ML IV ONE (21:41)
[2018-02-10] MEDS ORDERED: methylPREDNISolone 125 MG* 2 ML VIAL IV ONE (21:41)
[2018-02-10] MEDS ORDERED: Magnesium Sulfate 2 GM IV* 2 GM/50 ML BAG IVPB ONE (21:44)
[2018-02-10] MEDS ORDERED: Albuterol/Ipratropium NEB.SOL* Albuterol 2.5 MG/Ipratropium 0.5 MG 3 ML INH ONE (21:44)
[2018-02-10 22:24] LABS: ABS Basophils 0 10^3/ul (0-0.2); ABS Eosinophils 0 10^3/ul (0-0.6); ABS Lymphocytes 1.2 10^3/ul (1.0-4.8); ABS Monocytes 1.4 10^3/ul (0-0.8); ABS Neutrophils 10.1 10^3/ul (1.5-7.7); ABS Nucleated RBC 0 10^3/ul; Eosinophil % 0.2 % (0-6); Hematocrit 45 % (42-52); Hemoglobin 15.6 g/dl (14.0-18.0); Lymphocyte % 9.5 % (25-47); Mean Corpuscular HGB Conc 35 g/dl (31-36); Mean Corpuscular Hemoglobin 31 pg (27-31); Mean Corpuscular Volume 91 fL (80-94); Mean Platelet Volume 6.2 um3 (7.4-10.4); Nucleated Red Blood Cells % 0.1; Platelet Count 298 10^3/ul (150-450); Red Blood Count 4.98 10^6/ul (4.0-5.4); Red Cell Distribution Width 13 % (10.5-15); White Blood Count 12.8 10^3/ul (3.5-10.8)
[2018-02-10 22:41] LABS: EGFR Non-African American 147.7 (>60)
[2018-02-10 22:42] LABS: INR 0.98 (0.77-1.02)
--- NOTE | 2018-02-10 23:49 | ED ---
Shortness of Breath - HPI Summary HPI Summary: 67-year-old male presents with significant shortness of breath. He states he was here 2 days ago and was treated with steroids however he has not gotten any better. He was told to turn his oxygen from his normal 3 L down to 2 L during that previous ER stay. He is feeling very hot, tired and his breathing is arduous. He denies any fever and has cough productive of only a small amount of clear phlegm. He has no abdominal pain as had mild nausea. He has known COPD but does not currently smoke. 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 Tailor - Allergy/Home Medications Allergies/Adverse Reactions: Allergies Allergy/AdvReac Type Severity Reaction Status Date / Time meperidine [From Demerol] Allergy Intermediate Hallucinati Verified 02/08/18 12: 58 ons warfarin Allergy Intermediate Unknown Verified 02/08/18 12:59 Reaction Details cefuroxime [From Ceftin] Allergy Difficulty Verified 12/25/17 14:33 Breathing PMH/Surg Hx/FS Hx/Imm Hx Previously Healthy: No - COPD Endocrine/Hematology History: Denies: Hx Diabetes, Hx Thyroid Disease Cardiovascular History: Denies: Hx Hypertension, Hx Pacemaker/ICD Respiratory History: Reports: Hx Chronic Obstructive Pulmonary Disease (COPD), Other Respiratory Problems/Disorders Denies: Hx Asthma GI History: Reports: Hx Gastroesophageal Reflux Disease - r/t ibuprofen usage Denies: Hx Ulcer History: Denies: Hx Renal Disease Sensory History: Reports: Hx Contacts or Glasses - glasses Denies: Hx Cataracts, Hx Hearing Aid Opthamlomology History: Reports: Hx Contacts or Glasses - glasses Denies: Hx Cataracts Neurological History: Reports: Hx Headaches - pontine lesion 2006 Psychiatric History: Denies: Hx Panic Disorder - Cancer History Hx Chemotherapy: No - Surgical History Surgery Procedure, Year, and Place: APPENDECTOMY Hx Anesthesia Reactions: No Infectious Disease History: No Infectious Disease History: Denies: Hx Clostridium Difficile, Hx Hepatitis, Hx Human Immunodeficiency Virus (HIV), Hx of Known/Suspected MRSA, Hx Shingles, Hx Tuberculosis, Hx Known/ Suspected VRE, Hx Known/Suspected VRSA, History Other Infectious Disease, Traveled Outside the [place] in Last 30 Days - Family History Known Family History: Positive: Other - brother: colon CA - Social History Alcohol Use: None Substance Use Type: Reports: None Hx Tobacco Use: Yes - quit 1 year ago Smoking Status (MU): Former Smoker Type: Cigarettes Amount Used/How Often: smoked for 53 years 1-1.5 ppd Review of Systems Positive: Fatigue. Negative: Fever Negative: Sore Throat Negative: Palpitations, Chest Pain Positive: Shortness Of Breath, Cough Positive: Nausea Negative: Rash Positive: Weakness. Negative: Headache All Other Systems Reviewed And Are Negative: Yes Physical Exam Triage Information Reviewed: Yes Vital Signs On Initial Exam: Initial Vitals Temp Pulse Resp BP Pulse Ox 97.3 F 116 27 192/103 100 02/10/18 21:03 02/10/18 21:03 02/10/18 21:03 02/10/18 21:03 02/10/18 21:03 Vital Signs Reviewed: Yes Appearance: Positive: Ill-Appearing - Respiratory distress Skin: Positive: Warm, Other - Hot with slight diaphoresis Head/Face: Positive: Normal Head/Face Inspection Eyes: Positive: Normal, EOMI ENT: Positive: Normal ENT inspection, Pharynx normal Neck: Positive: Supple, Nontender, Other: - No JVD Respiratory/Lung Sounds: Positive: Other - Grossly diminished lung sounds globally without wheeze rale or rhonchi. Poor aeration. Tachypnea. Cardiovascular: Positive: Tachycardia Abdomen Description: Positive: Nontender, No Organomegaly Musculoskeletal: Positive: Normal, Strength/ROM Intact Neurological: Positive: Normal, Sensory/Motor Intact, Alert, Oriented to Person Place, Time, CN Intact II-III Psychiatric: Positive: Normal Diagnostics - Vital Signs Vital Signs Temp Pulse Resp BP Pulse Ox 02/10/18 22:06 117 24 98 02/10/18 21:03 97.3 F 116 27 192/103 100 - Laboratory Lab Results: Lab Results 02/10/18 02/10/18 02/10/18 Range/Units 22:13 22:13 22:13 WBC 12.8 H (3.5-10.8) 10^3/ul RBC 4.98 (4.0-5.4) 10^6/ul Hgb 15.6 (14.0-18.0) g/dl Hct 45 (42-52) % MCV 91 (80-94) fL MCH 31 (27-31) pg MCHC 35 (31-36) g/dl RDW 13 (10.5-15) % Plt Count 298 (150-450) 10^3/ul MPV 6.2 L (7.4-10.4) um3 Neut % (Auto) 78.7 (38-83) % Lymph % (Auto) 9.5 L (25-47) % Braxton % (Auto) 11.3 H (0-7) % Eos % (Auto) 0.2 (0-6) % Baso % (Auto) 0.3 (0-2) % Absolute Neuts (auto) 10.1 H (1.5-7.7) 10^3/ul Absolute Lymphs (auto) 1.2 (1.0-4.8) 10^3/ul Absolute Monos (auto) 1.4 H (0-0.8) 10^3/ul Absolute Eos (auto) 0 (0-0.6) 10^3/ul Absolute Basos (auto) 0 (0-0.2) 10^3/ul Absolute Nucleated RBC 0 10^3/ul Nucleated RBC % 0.1 INR (Anticoag Therapy) (0.77-1.02) D-Dimer, Quantitative (Less Than 230) ng/mL Patient Temperature ABG pH (7.35-7.45) ABG pH (Temp Correct) ABG pCO2 (35-45) mmHg ABG pCO2 (Temp Corrct ABG pO2 (80-100) mmHg ABG pO2 (Temp Correct ABG HCO3 (19-31) mmol/L ABG O2 Saturation (95-98) % ABG Base Excess (-2.0-2.0) Respiration Rate O2 Delivery Device Ventilator Type Vent Mode FiO2 Inspiratory Time PEEP Pressure Support Pressure Control EPAP IPAP BiPAP Sodium 128 L (139-145) mmol/L Potassium 3.7 (3.5-5.0) mmol/L Chloride 86 L (101-111) mmol/L Carbon Dioxide 35 H (22-32) mmol/L Anion Gap 7 (2-11) mmol/L BUN 7 (6-24) mg/dL Creatinine 0.55 L (0.67-1.17) mg/dL Est GFR ( Amer) 189.9 (>60) Est GFR (Non-Af Amer) 147.7 (>60) BUN/Creatinine Ratio 12.7 (8-20) Glucose 116 H (70-100) mg/dL Lactic Acid (0.5-2.0) mmol/L Calcium 9.5 (8.6-10.3) mg/dL Total Bilirubin 0.50 (0.2-1.0) mg/dL AST 17 (13-39) U/L ALT 18 (7-52) U/L Alkaline Phosphatase 51 (34-104) U/L Troponin I 0.01 (<0.04) ng/mL C-Reactive Protein 1.24 (< 5.00) mg/L B-Natriuretic Peptide 122 H ( - 100) pg/mL Total Protein 6.9 (6.4-8.9) g/dL Albumin 3.9 (3.2-5.2) g/dL Globulin 3.0 (2-4) g/dL Albumin/Globulin Ratio 1.3 (1-3) 02/10/18 02/10/18 02/10/18 Range/Units 22:13 22:13 22:25 WBC (3.5-10.8) 10^3/ul RBC (4.0-5.4) 10^6/ul Hgb (14.0-18.0) g/dl Hct (42-52) % MCV (80-94) fL MCH (27-31) pg MCHC (31-36) g/dl RDW (10.5-15) % Plt Count (150-450) 10^3/ul MPV (7.4-10.4) um3 Neut % (Auto) (38-83) % Lymph % (Auto) (25-47) % Braxton % (Auto) (0-7) % Eos % (Auto) (0-6) % Baso % (Auto) (0-2) % Absolute Neuts (auto) (1.5-7.7) 10^3/ul Absolute Lymphs (auto) (1.0-4.8) 10^3/ul Absolute Monos (auto) (0-0.8) 10^3/ul Absolute Eos (auto) (0-0.6) 10^3/ul Absolute Basos (auto) (0-0.2) 10^3/ul Absolute Nucleated RBC 10^3/ul Nucleated RBC % INR (Anticoag Therapy) 0.98 (0.77-1.02) D-Dimer, Quantitative < 200 (Less Than 230) ng/mL Patient Temperature Not Reportable ABG pH 7.33 L (7.35-7.45) ABG pH (Temp Correct) Not Reportable ABG pCO2 78 H* (35-45) mmHg ABG pCO2 (Temp Corrct Not Reportable ABG pO2 240 H (80-100) mmHg ABG pO2 (Temp Correct Not Reportable ABG HCO3 33.5 H (19-31) mmol/L ABG O2 Saturation 100.1 H (95-98) % ABG Base Excess 11.0 H (-2.0-2.0) Respiration Rate Not Reportable O2 Delivery Device vapotherm Ventilator Type Not Reportable Vent Mode Not Reportable FiO2 100 Inspiratory Time Not Reportable PEEP Not Reportable Pressure Support Not Reportable Pressure Control Not Reportable EPAP Not Reportable IPAP Not Reportable BiPAP Not Reportable Sodium (139-145) mmol/L Potassium (3.5-5.0) mmol/L Chloride (101-111) mmol/L Carbon Dioxide (22-32) mmol/L Anion Gap (2-11) mmol/L BUN (6-24) mg/dL Creatinine (0.67-1.17) mg/dL Est GFR ( Amer) (>60) Est GFR (Non-Af Amer) (>60) BUN/Creatinine Ratio (8-20) Glucose (70-100) mg/dL Lactic Acid 1.0 (0.5-2.0) mmol/L Calcium (8.6-10.3) mg/dL Total Bilirubin (0.2-1.0) mg/dL AST (13-39) U/L ALT (7-52) U/L Alkaline Phosphatase (34-104) U/L Troponin I (<0.04) ng/mL C-Reactive Protein (< 5.00) mg/L B-Natriuretic Peptide ( - 100) pg/mL Total Protein (6.4-8.9) g/dL Albumin (3.2-5.2) g/dL Globulin (2-4) g/dL Albumin/Globulin Ratio (1-3) Result Diagrams: 02/10/18 22:13 02/10/18 22:13 Lab Statement: Any lab studies that have been ordered have been reviewed, and results considered in the medical decision making process. - Radiology chest x-ray Xray Interpretation: Positive (See Comments) - No acute infiltrate, mild hyperinflation Radiology Interpretation Completed By: ED Physician - EKG No standard instances Cardiac Rate: Tachycardia - 116 EKG Rhythm: Sinus Tachycardia ST Segment: Normal Ectopy: None EKG Interpretation: sinus tachycardia. Re-Evaluation - Re-Evaluation First Eval Change: Improved - Slight improvement on Vapotherm Course/Dx - Course Course Of Treatment: Patient with poor air movement and history of COPD. Started IV fluids, IV magnesium, several breathing treatments and high flow nasal cannula through Vapotherm device. Despite all this he remains tachycardic. His chest x-ray is largely normal with mild hyperinflation. I will obtain a CT angiogram of the chest. He'll require admission. IV steroids were given, high dose. Also the hospitalist who will admit - Diagnoses Differential Diagnosis/HQI/PQRI: Positive: COPD Exacerbation, Pneumonia, Pulmonary Embolism, Pulmonary Edema Provider Diagnoses: Acute and chronic respiratory failure with hypercapnia, COPD with acute exacerbation - Physician Notifications Discussed Care of Patient With: Clarence Wheatley - we will evaluate the patient in the ER and admit. - Critical Care Time Critical Care Time: 30-74 min - Critical care time is exclusive of separately billed procedures. Discharge - Sign-Out/Discharge Documenting (check all that apply): Discharge/Admit/Transfer - Discharge Plan Condition: Guarded Disposition: ADMITTED TO [facility] Referrals: Kevin Green MD [Primary Care Provider] - - Billing Disposition and Condition Condition: GUARDED Disposition: [facility] [place]
[2018-02-10] MEDS ORDERED: Levofloxacin 750 MG IVPREMIX(* 750 MG/150 ML BAG IVPB ONE (23:50)
[2018-02-11] MEDS ORDERED: Iohexol 350* (CONTRAST) 500 ML MDV IV ONE (00:16)
[2018-02-11 01:06] LABS: Urine Appearance Clear; Urine Blood 1+ (Negative); Urine Color Straw; Urine Ketones Negative (Negative); Urine Protein Negative (Negative); Urine Specific Gravity 1.004 (1.010-1.030); Urine Urobilinogen Negative (Negative)
[2018-02-11] MEDS ORDERED: Albuterol 2.5 MG/3 ML NEB.SOL* (0.083%) INH PRN (02:41)
[2018-02-11] MEDS ORDERED: hydrALAZINE IV* 20 MG/ML VIAL IV PRN (04:59)
[2018-02-11] MEDS ORDERED: oxyCODONE TAB* 5 MG TAB PO PRN (05:56)
[2018-02-11] MEDS ORDERED: Baclofen TAB* 10 MG PO PRN (05:56)
--- NOTE | 2018-02-11 05:57 | HP ---
H&P (Free Text) History and Physical: PCP: Mariana Green MD Date/Time: 02/11/2018 0230 CC: SOB HPI: Mr Chopra is a 67YO male smoker who quit in Aug 2017 with a HX COPD & a benign pontine lesion presents with worsening SOB, cough, congestion, nausea without emesis, subjective F/C, sweats, & cramping upper abdominal discomfort rated at 5/10 without exacerbating or alleviating factors. His last BM was 2 days ago and reported as normal. He denies changes in urination, appetite, or bowels. Upon arrival, he was found to be hypoxic in the low 80s on room air with significantly increased work of breathing and therefore was placed on VapoTherm 40L 30% which we have been able to wean to a 5L [place] while maintaining his comfort and saO2 over 90%. PMedHx COPD chronic hypercarbic respiratory failure benign pontine lesion GERD Ambulatory Orders Albuterol/Ipratropium NEB.HENNY* [Duoneb (Albuterol 2.5 MG/Ipratropium 0.5 MG)] 1 neb INH BID PRN 09/01/17 Baclofen TAB* [Lioresal TAB*] 5 mg PO BID PRN 09/01/17 Butalb/Acetamin/Caff TAB* [Fioricet TAB*] 1 tab PO BID PRN 09/01/17 Gabapentin CAP(*) [Neurontin 300 CAP(*)] 300 mg PO SEE INSTRUCTIONS 09/01/17 Nortriptyline CAP* [Nortriptylline CAP*] 10 mg PO BEDTIME 09/01/17 Omeprazole CAP* [Prilosec CAP* 20 MG] 40 mg PO DAILY@0730 #60 cap. 09/04/17 Azithromycin TAB* [Zithromax TAB (Z-DON) 250 mg #6 tabs] 250 mg PO DAILY #4 tab 02/08/18 Benzonatate CAP* 100 mg PO Q4HR PRN 02/08/18 Ibuprofen 600 mg PO BID PRN 02/08/18 Incruse ELLIPTA MDI (NF) 1 puff PO DAILY 02/08/18 Oxycodone Hydrochloride 5 mg PO BID PRN 02/08/18 Allergies meperidine [From Demerol] Allergy (Intermediate, Verified 02/08/18 12:58) Hallucinations warfarin Allergy (Intermediate, Verified 02/08/18 12:59) Unknown Reaction Details can not walk or stand amoxicillin [From Augmentin] Allergy (Verified 02/11/18 04:58) GI Upset cefuroxime [From Ceftin] Allergy (Verified 12/25/17 14:33) Difficulty Breathing clavulanic acid [From Augmentin] Allergy (Verified 02/11/18 04:58) GI Upset PSurgHx appendectomy SocHx: quit smoking Aug 2017 w/ ~50 PYHX, mild alcohol, no recreational drugs; lives with his ; full code status, needs revisiting FamHx: positive for CAD, colon CA, lymphoma, & brain tumor ROS: as above, otherwise reviewed and all were negative vitals: Vital Signs Temp 36.7 C 02/11/18 04:28 Pulse 114 02/11/18 04:28 Resp 28 02/11/18 04:28 BP 175/80 02/11/18 04:28 Pulse Ox 98 02/11/18 04:28 Intake & Output 02/10/18 02/10/18 02/11/18 11:59 23:59 11:59 Intake Total 1200 Balance 1200 Weight 72.575 kg 71.804 kg Intake: IV Fluids 1200 Constitutional: NAD, normally developed, overweight white male HEENM: atraumatic; sclera/conjunctiva: anicteric/clear; hearing: clinically intact; oropharynx: clear, mucosa tacky Neck: soft tissue: non-tender; thyroid: normal Pulmonary: extremely diminished bilaterally, exceedingly poor aeration, no accessory muscle use CV: TR/RR, normal S1S2, no carotid bruit, no jugular venous distention, 2+ B DP/ PT, 1+ BLE edema Abdominal: soft, non-distended, non-tender, no rebound/guarding/rigidity, normoactive bowel sounds, no hepatosplenomegaly or masses, no costovertebral angle tenderness Musculoskeletal: general: grossly intact, non-tender to palpation Integumental: normal appearance and texture of exposed skin Psychiatric orientation: AA&O to PPS affect: calm mood: cooperative eye contact: fair to good content: reliable responses: timely insight: fair Testing: Lab Results 02/10/18 02/10/18 02/10/18 Range/Units 22:13 22:13 22:13 WBC 12.8 H (3.5-10.8) 10^3/ul RBC 4.98 (4.0-5.4) 10^6/ul Hgb 15.6 (14.0-18.0) g/dl Hct 45 (42-52) % MCV 91 (80-94) fL MCH 31 (27-31) pg MCHC 35 (31-36) g/dl RDW 13 (10.5-15) % Plt Count 298 (150-450) 10^3/ul MPV 6.2 L (7.4-10.4) um3 Neut % (Auto) 78.7 (38-83) % Lymph % (Auto) 9.5 L (25-47) % [place] % (Auto) 11.3 H (0-7) % Eos % (Auto) 0.2 (0-6) % Baso % (Auto) 0.3 (0-2) % Absolute Neuts (auto) 10.1 H (1.5-7.7) 10^3/ul Absolute Lymphs (auto) 1.2 (1.0-4.8) 10^3/ul Absolute Monos (auto) 1.4 H (0-0.8) 10^3/ul Absolute Eos (auto) 0 (0-0.6) 10^3/ul Absolute Basos (auto) 0 (0-0.2) 10^3/ul Absolute Nucleated RBC 0 10^3/ul Nucleated RBC % 0.1 INR (Anticoag Therapy) (0.77-1.02) D-Dimer, Quantitative (Less Than 230) ng/mL Patient Temperature ABG pH (7.35-7.45) ABG pH (Temp Correct) ABG pCO2 (35-45) mmHg ABG pCO2 (Temp Corrct ABG pO2 (80-100) mmHg ABG pO2 (Temp Correct ABG HCO3 (19-31) mmol/L ABG O2 Saturation (95-98) % ABG Base Excess (-2.0-2.0) Respiration Rate O2 Delivery Device Ventilator Type Vent Mode FiO2 Inspiratory Time PEEP Pressure Support Pressure Control EPAP IPAP BiPAP Sodium 128 L (139-145) mmol/L Potassium 3.7 (3.5-5.0) mmol/L Chloride 86 L (101-111) mmol/L Carbon Dioxide 35 H (22-32) mmol/L Anion Gap 7 (2-11) mmol/L BUN 7 (6-24) mg/dL Creatinine 0.55 L (0.67-1.17) mg/dL Est GFR ( Amer) 189.9 (>60) Est GFR (Non-Af Amer) 147.7 (>60) BUN/Creatinine Ratio 12.7 (8-20) Glucose 116 H (70-100) mg/dL Lactic Acid (0.5-2.0) mmol/L Calcium 9.5 (8.6-10.3) mg/dL Total Bilirubin 0.50 (0.2-1.0) mg/dL AST 17 (13-39) U/L ALT 18 (7-52) U/L Alkaline Phosphatase 51 (34-104) U/L Troponin I 0.01 (<0.04) ng/mL C-Reactive Protein 1.24 (< 5.00) mg/L B-Natriuretic Peptide 122 H ( - 100) pg/mL Total Protein 6.9 (6.4-8.9) g/dL Albumin 3.9 (3.2-5.2) g/dL Globulin 3.0 (2-4) g/dL Albumin/Globulin Ratio 1.3 (1-3) Urine Color Urine Appearance Urine pH (5-9) Ur Specific [place] (1.010-1.030) Urine Protein (Negative) Urine Ketones (Negative) Urine Blood (Negative) Urine Nitrate (Negative) Urine Bilirubin (Negative) Urine Urobilinogen (Negative) Ur Leukocyte Esterase (Negative) Urine WBC (Auto) (Absent) Urine RBC (Auto) (Absent) Urine Bacteria (Absent) Urine Glucose (Negative) 02/10/18 02/10/18 02/10/18 Range/Units 22:13 22:13 22:25 WBC (3.5-10.8) 10^3/ul RBC (4.0-5.4) 10^6/ul Hgb (14.0-18.0) g/dl Hct (42-52) % MCV (80-94) fL MCH (27-31) pg MCHC (31-36) g/dl RDW (10.5-15) % Plt Count (150-450) 10^3/ul MPV (7.4-10.4) um3 Neut % (Auto) (38-83) % Lymph % (Auto) (25-47) % [place] % (Auto) (0-7) % Eos % (Auto) (0-6) % Baso % (Auto) (0-2) % Absolute Neuts (auto) (1.5-7.7) 10^3/ul Absolute Lymphs (auto) (1.0-4.8) 10^3/ul Absolute Monos (auto) (0-0.8) 10^3/ul Absolute Eos (auto) (0-0.6) 10^3/ul Absolute Basos (auto) (0-0.2) 10^3/ul Absolute Nucleated RBC 10^3/ul Nucleated RBC % INR (Anticoag Therapy) 0.98 (0.77-1.02) D-Dimer, Quantitative < 200 (Less Than 230) ng/mL Patient Temperature Not Reportable ABG pH 7.33 L (7.35-7.45) ABG pH (Temp Correct) Not Reportable ABG pCO2 78 H* (35-45) mmHg ABG pCO2 (Temp Corrct Not Reportable ABG pO2 240 H (80-100) mmHg ABG pO2 (Temp Correct Not Reportable ABG HCO3 33.5 H (19-31) mmol/L ABG O2 Saturation 100.1 H (95-98) % ABG Base Excess 11.0 H (-2.0-2.0) Respiration Rate Not Reportable O2 Delivery Device vapotherm Ventilator Type Not Reportable Vent Mode Not Reportable FiO2 100 Inspiratory Time Not Reportable PEEP Not Reportable Pressure Support Not Reportable Pressure Control Not Reportable EPAP Not Reportable IPAP Not Reportable BiPAP Not Reportable Sodium (139-145) mmol/L Potassium (3.5-5.0) mmol/L Chloride (101-111) mmol/L Carbon Dioxide (22-32) mmol/L Anion Gap (2-11) mmol/L BUN (6-24) mg/dL Creatinine (0.67-1.17) mg/dL Est GFR ( Amer) (>60) Est GFR (Non-Af Amer) (>60) BUN/Creatinine Ratio (8-20) Glucose (70-100) mg/dL Lactic Acid 1.0 (0.5-2.0) mmol/L Calcium (8.6-10.3) mg/dL Total Bilirubin (0.2-1.0) mg/dL AST (13-39) U/L ALT (7-52) U/L Alkaline Phosphatase (34-104) U/L Troponin I (<0.04) ng/mL C-Reactive Protein (< 5.00) mg/L B-Natriuretic Peptide ( - 100) pg/mL Total Protein (6.4-8.9) g/dL Albumin (3.2-5.2) g/dL Globulin (2-4) g/dL Albumin/Globulin Ratio (1-3) Urine Color Urine Appearance Urine pH (5-9) Ur Specific [place] (1.010-1.030) Urine Protein (Negative) Urine Ketones (Negative) Urine Blood (Negative) Urine Nitrate (Negative) Urine Bilirubin (Negative) Urine Urobilinogen (Negative) Ur Leukocyte Esterase (Negative) Urine WBC (Auto) (Absent) Urine RBC (Auto) (Absent) Urine Bacteria (Absent) Urine Glucose (Negative) 02/11/18 Range/Units 00:37 WBC (3.5-10.8) 10^3/ul RBC (4.0-5.4) 10^6/ul Hgb (14.0-18.0) g/dl Hct (42-52) % MCV (80-94) fL MCH (27-31) pg MCHC (31-36) g/dl RDW (10.5-15) % Plt Count (150-450) 10^3/ul MPV (7.4-10.4) um3 Neut % (Auto) (38-83) % Lymph % (Auto) (25-47) % [place] % (Auto) (0-7) % Eos % (Auto) (0-6) % Baso % (Auto) (0-2) % Absolute Neuts (auto) (1.5-7.7) 10^3/ul Absolute Lymphs (auto) (1.0-4.8) 10^3/ul Absolute Monos (auto) (0-0.8) 10^3/ul Absolute Eos (auto) (0-0.6) 10^3/ul Absolute Basos (auto) (0-0.2) 10^3/ul Absolute Nucleated RBC 10^3/ul Nucleated RBC % INR (Anticoag Therapy) (0.77-1.02) D-Dimer, Quantitative (Less Than 230) ng/mL Patient Temperature ABG pH (7.35-7.45) ABG pH (Temp Correct) ABG pCO2 (35-45) mmHg ABG pCO2 (Temp Corrct ABG pO2 (80-100) mmHg ABG pO2 (Temp Correct ABG HCO3 (19-31) mmol/L ABG O2 Saturation (95-98) % ABG Base Excess (-2.0-2.0) Respiration Rate O2 Delivery Device Ventilator Type Vent Mode FiO2 Inspiratory Time PEEP Pressure Support Pressure Control EPAP IPAP BiPAP Sodium (139-145) mmol/L Potassium (3.5-5.0) mmol/L Chloride (101-111) mmol/L Carbon Dioxide (22-32) mmol/L Anion Gap (2-11) mmol/L BUN (6-24) mg/dL Creatinine (0.67-1.17) mg/dL Est GFR ( Amer) (>60) Est GFR (Non-Af Amer) (>60) BUN/Creatinine Ratio (8-20) Glucose (70-100) mg/dL Lactic Acid (0.5-2.0) mmol/L Calcium (8.6-10.3) mg/dL Total Bilirubin (0.2-1.0) mg/dL AST (13-39) U/L ALT (7-52) U/L Alkaline Phosphatase (34-104) U/L Troponin I (<0.04) ng/mL C-Reactive Protein (< 5.00) mg/L B-Natriuretic Peptide ( - 100) pg/mL Total Protein (6.4-8.9) g/dL Albumin (3.2-5.2) g/dL Globulin (2-4) g/dL Albumin/Globulin Ratio (1-3) Urine Color Straw Urine Appearance Clear Urine pH 7.0 (5-9) Ur Specific [place] 1.004 L (1.010-1.030) Urine Protein Negative (Negative) Urine Ketones Negative (Negative) Urine Blood 1+ A (Negative) Urine Nitrate Negative (Negative) Urine Bilirubin Negative (Negative) Urine Urobilinogen Negative (Negative) Ur Leukocyte Esterase Negative (Negative) Urine WBC (Auto) Trace(0-5/hpf) (Absent) Urine RBC (Auto) Trace(0-2/hpf) (Absent) Urine Bacteria Absent (Absent) Urine Glucose Negative (Negative) ECG, personally reviewed: sinus tachycardia rate 116, Q-waves II/III/AVF, no ischemia CXR, personally reviewed: no acute process CTA chest, personally reviewed: IMPRESSION: 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 Moderate to severe emphysema. 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
[2018-02-11] MEDS ORDERED: Albuterol 2.5 MG/3 ML NEB.SOL* (0.083%) INH SCH (07:00)
--- NOTE | 2018-02-11 07:37 | RAD ---
INDICATION: Shortness of breath and COPD. COMPARISON: Comparison is made with a prior chest x-ray study from February 08, 2018. TECHNIQUE: A portable view of the chest was obtained. FINDINGS: Cardiac and mediastinal contours appear to be within normal limits. The lungs are hyperinflated and clear. No pleural effusion is seen. IMPRESSION: NO EVIDENCE FOR ACUTE FINDING.
[2018-02-11] MEDS ORDERED: Levalbuterol 1.25MG/0.5ML NEB INH PRN (07:46)
[2018-02-11] MEDS: Mometasone/Formoter 200/5 MDI INH SCH ×2 (07:55→20:10)
[2018-02-11] MEDS: Tiotropium CAP.INH* CAP.INH/18 MCG (USE ORDER SET !) INH SCH (07:55)
[2018-02-11] MEDS: Omeprazole CAP* 20 MG PO SCH (08:17)
[2018-02-11] MEDS: methylPREDNISolone SOD 40 MG* 1 ML VIAL IV SCH ×2 (08:17→16:40)
--- NOTE | 2018-02-11 08:32 | RAD ---
INDICATION: Respiratory failure. COMPARISON: Comparison is made with a prior CT of the chest from March 13, 2017. TECHNIQUE: A CT angiogram of the chest was performed with intravenous following intravenous injection of 66 ml of Omnipaque 350 nonionic contrast. Contiguous axial sections were obtained from the lung apices through the lung bases. Images were reconstructed in the coronal and sagittal planes. FINDINGS: There is relatively homogeneous opacification of the pulmonary arteries. No intraluminal filling defect or pulmonary embolism is seen. The heart is within normal limits in size. There is coronary artery calcifications. No pericardial effusion is present. There is a 4.8 cm aneurysm of the aortic root which is seen in retrospect on the prior noncontrast study and appears unchanged. There is homogeneous opacification of the aorta without evidence for dissection. There is mild to moderate calcific plaque present. No significant enlarged mediastinal or hilar lymph nodes are seen. There is moderate to severe centrilobular emphysematous change. No focal infiltrate or pleural effusion is seen. Images of the upper abdomen demonstrate several small hypodense hepatic lesions which are too small to characterize by CT although likely represent cysts. These are seen on the prior CT study and are grossly unchanged. There is mild thickening of the adrenal glands suggestive of adrenal gland hyperplasia. No significant focal osseous abnormality is seen IMPRESSION: 1. NO EVIDENCE FOR PULMONARY EMBOLISM. 2. 4.8 CM ANEURYSM OF THE AORTIC ROOT. 3. MODERATE TO SEVERE EMPHYSEMA. 4. FINDINGS SUGGESTIVE OF ADRENAL GLAND HYPERPLASIA.
[2018-02-11] MEDS ORDERED: Spiriva Inhaler DEVICE* 1 EACH DEVICE INH ONE (09:00)
[2018-02-11] MEDS ORDERED: Albuterol/Ipratropium NEB.SOL* Albuterol 2.5 MG/Ipratropium 0.5 MG 3 ML INH PRN (09:03)
[2018-02-11] MEDS ORDERED: Perflutren Lipid Microsphere* 3 ML VIAL ONE (11:23)
--- NOTE | 2018-02-11 13:16 | ECHO ---
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 Technical Comments: The study is technically limited due to poor acoustic windows. The study is technically limited due to the patient's history of COPD. The study is technically limited due to the patient's smoking history. Left Ventricle: The left ventricle is not well visualized. The left ventricular chamber size is normal. Mild concentric left ventricular hypertrophy is observed. Global left ventricular wall motion and contractility are within normal limits. The left ventricle appears hyperdynamic. The estimated ejection fraction is greater than 65%. There is an E to A reversal in the mitral valve flow pattern suggestive of diastolic dysfunction. Left Atrium: The left atrial chamber size is normal. Right Ventricle: The right ventricle is slightly dilated. The right ventricular global systolic function is normal. Right Atrium: The right atrial cavity size is normal. Aortic Valve: The aortic valve structure is not well visualized. There is no evidence of aortic regurgitation. There is no evidence of aortic stenosis. Mitral Valve: The mitral valve leaflets are mildly thickened. There is no evidence of mitral regurgitation. There is no evidence of mitral stenosis. Tricuspid Valve: The tricuspid valve leaflets are normal. There is trace tricuspid regurgitation. Unable to estimate the right ventricular systolic pressure. There is no tricuspid stenosis. Pulmonic Valve: The pulmonic valve structure is not well visualized. Pericardium: There is no significant pericardial effusion. A pericardial fat pad is visualized. Aorta: The ascending aorta is not well visualized. The aortic arch is not well visualized. There is moderate dilatation of the aortic root.In selected views 4.7-5.0 cm. suggesting moderate to significantly enlarged. Pulmonary Artery: The main pulmonary artery is not well visualized. Venous: The inferior vena cava appears normal in size. There is a greater than 50% respiratory change in the inferior vena cava dimension. Contrast: Definity was used to optimize study. A total of 5 ml of diluted Definity was given IV. Conclusions The study is technically limited due to poor acoustic windows. The study is technically limited due to the patient's history of COPD. The study is technically limited due to the patient's smoking history. The left ventricle is not well visualized. Mild concentric left ventricular hypertrophy is observed. The left ventricle appears hyperdynamic. The estimated ejection fraction is greater than 65%. No elable comments regarding valvular function can be made due to poor imaging. There is dilatation of the aortic root. In selected views 4.7-5.0 cm. suggesting moderate to significantly dilated. No reports of prior studies are offered for comparison. Measurements Name Value Normal Range RVIDd (AP) 2D 3 cm (0.9 - 2.6) RAd ISD 4CH 3.9 cm (3.4 - 4.9) RA (A4C)W 3.4 cm (2.9 - 4.6) IVSd (2D) 1.1 cm (0.6 - 1) LVPWd (2D) 1.1 cm (0.6 - 1) LVIDd (2D) 4.5 cm (3.6 - 5.4) Aortic Annulus 2 cm (1.4 - 2.6) Ao root diameter (2D) 4.7 cm (2.1 - 3.5) LA dimension (AP) 2D 2.4 cm (2.3 - 3.8) LAd ISD 4CH 3.2 cm (2.9 - 5.3) LA ISD 4CH W 3.7 cm (2.5 - 4.5) Name Value Normal Range MV E-wave Vmax 0.83 m/sec - MV deceleration time 234 msec - MV A-wave Vmax 1.1 m/sec - MV E:A ratio 0.73 ratio - LV septal e' Vmax 0.07 m/sec - LV lateral e' Vmax 0.1 m/sec - LV E:e' septal ratio 11.9 ratio - LV E:e' lateral ratio 8.3 ratio - Name Value Normal Range AV Vmax 1.3 m/sec - AV VTI 23.6 cm - AV peak gradient 6.8 mmHg - AV mean gradient 4.5 mmHg - LVOT Vmax 1.3 m/sec - LVOT VTI 22.2 cm - LVOT peak gradient 7.3 mmHg - LVOT mean gradient 3.7 mmHg - Name Value Normal Range IVC diameter 1.5 cm - Name Value Normal Range PV Vmax 0.92 m/sec -
[2018-02-11] MEDS: amLODIPine TAB* 5 MG PO SCH (16:40)
--- NOTE | 2018-02-11 16:41 | PN ---
Subjective Date of Service: 02/11/18 Interval History: Pt stated that he had been SOB x 6 months. lost 20 lbs of weight this winter. stopped smoking in 08/2017 Objective Active Medications: Acetaminophen (Tylenol Tab*) 650 mg PO Q6H PRN PRN Reason: FEVER/PAIN Albuterol/Ipratropium (Duoneb (Albuterol 2.5 Mg/Ipratropium 0.5 Mg)) 1 neb INH Q4H PRN PRN Reason: SOB/WHEEZING Amlodipine Besylate (Norvasc Tab*) 10 mg PO DAILY [facility] Baclofen (Lioresal Tab*) 5 mg PO BID PRN PRN Reason: SPASMS Gabapentin (Neurontin Cap(*)) 300 mg PO 1929 [facility] Hydralazine HCl (Apresoline Iv*) 10 mg IV Q4H PRN PRN Reason: Systolic >170 Last Admin: 02/11/18 05:34 Dose: 10 mg Azithromycin 500 mg/ Sodium (Chloride) 250 mls @ 250 mls/hr IVPB Q24H [facility] Levalbuterol HCl (Xopenex 1.25 Mg/0.5 Ml Neb.Wendy*) 1.25 mg INH Q2H PRN PRN Reason: DYSPNEA Last Admin: 02/11/18 09:11 Dose: 1.25 mg Methylprednisolone Sodium Succinate (Solu-Medrol 40 Mg) 40 mg IV Q8H [facility] Last Admin: 02/11/18 08:17 Dose: 40 mg Mometasone Furoate/Formoterol Fumar (Dulera 200/5 Mdi*) 2 puff INH BID [facility] Last Admin: 02/11/18 07:55 Dose: 2 cap.inh Nortriptyline HCl (Pamelor Cap*) 10 mg PO BEDTIME [facility] Omeprazole (Prilosec Cap*) 40 mg PO DAILY@0730 [facility] Last Admin: 02/11/18 08:17 Dose: 40 mg Oxycodone HCl (Roxycodone Tab*) 5 mg PO BID PRN PRN Reason: HEADACHE Tiotropium [place] (Spiriva Cap.Inh*) 1 cap INH DAILY [facility] Last Admin: 02/11/18 07:55 Dose: 1 cap.inh Vital Signs - 8 hr 02/11/18 02/11/18 12:19 15:40 Temperature 98.2 F 98.2 F Pulse Rate 117 105 Respiratory 24 20 Rate Blood Pressure 164/67 149/69 (mmHg) O2 Sat by Pulse 98 100 Oximetry Oxygen Devices in Use Now: Nasal Cannula Appearance: 67 yo M in nAD, aAOx3 Eyes: No Scleral Icterus, PERRLA Ears/Nose/Mouth/Throat: NL Teeth, Lips, Gums, Mucous Membranes Moist Neck: NL Appearance and Movements; NL JVP, Trachea Midline Respiratory: Symmetrical Chest Expansion and Respiratory Effort, - - barrel chest, prolonged expiratory phase, diffuse b/l wheezes Cardiovascular: NL Sounds; No Murmurs; No JVD, RRR Abdominal: NL Sounds; No Tenderness; No Distention, No Hepatosplenomegaly Lymphatic: No Cervical Adenopathy Extremities: No Clubbing, Cyanosis, - - trace ankle edema b/l Skin: No Rash or Ulcers, No Nodules or Sclerosis Neurological: Alert and Oriented x 3, NL Muscle Strength and Tone Result Diagrams: 02/10/18 22:13 02/10/18 22:13 Additional Lab and Data: Lab Results 02/10/18 02/10/18 02/10/18 Range/Units 22:13 22:13 22:13 WBC 12.8 H (3.5-10.8) 10^3/ul RBC 4.98 (4.0-5.4) 10^6/ul Hgb 15.6 (14.0-18.0) g/dl Hct 45 (42-52) % MCV 91 (80-94) fL MCH 31 (27-31) pg MCHC 35 (31-36) g/dl RDW 13 (10.5-15) % Plt Count 298 (150-450) 10^3/ul MPV 6.2 L (7.4-10.4) um3 Neut % (Auto) 78.7 (38-83) % Lymph % (Auto) 9.5 L (25-47) % [place] % (Auto) 11.3 H (0-7) % Eos % (Auto) 0.2 (0-6) % Baso % (Auto) 0.3 (0-2) % Absolute Neuts (auto) 10.1 H (1.5-7.7) 10^3/ul Absolute Lymphs (auto) 1.2 (1.0-4.8) 10^3/ul Absolute Monos (auto) 1.4 H (0-0.8) 10^3/ul Absolute Eos (auto) 0 (0-0.6) 10^3/ul Absolute Basos (auto) 0 (0-0.2) 10^3/ul Absolute Nucleated RBC 0 10^3/ul Nucleated RBC % 0.1 INR (Anticoag Therapy) (0.77-1.02) D-Dimer, Quantitative (Less Than 230) ng/mL Patient Temperature ABG pH (7.35-7.45) ABG pH (Temp Correct) ABG pCO2 (35-45) mmHg ABG pCO2 (Temp Corrct ABG pO2 (80-100) mmHg ABG pO2 (Temp Correct ABG HCO3 (19-31) mmol/L ABG O2 Saturation (95-98) % ABG Base Excess (-2.0-2.0) Respiration Rate O2 Delivery Device Ventilator Type Vent Mode FiO2 Inspiratory Time PEEP Pressure Support Pressure Control EPAP IPAP BiPAP Sodium 128 L (139-145) mmol/L Potassium 3.7 (3.5-5.0) mmol/L Chloride 86 L (101-111) mmol/L Carbon Dioxide 35 H (22-32) mmol/L Anion Gap 7 (2-11) mmol/L BUN 7 (6-24) mg/dL Creatinine 0.55 L (0.67-1.17) mg/dL Est GFR ( Amer) 189.9 (>60) Est GFR (Non-Af Amer) 147.7 (>60) BUN/Creatinine Ratio 12.7 (8-20) Glucose 116 H (70-100) mg/dL Lactic Acid (0.5-2.0) mmol/L Calcium 9.5 (8.6-10.3) mg/dL Total Bilirubin 0.50 (0.2-1.0) mg/dL AST 17 (13-39) U/L ALT 18 (7-52) U/L Alkaline Phosphatase 51 (34-104) U/L Troponin I 0.01 (<0.04) ng/mL C-Reactive Protein 1.24 (< 5.00) mg/L B-Natriuretic Peptide 122 H ( - 100) pg/mL Total Protein 6.9 (6.4-8.9) g/dL Albumin 3.9 (3.2-5.2) g/dL Globulin 3.0 (2-4) g/dL Albumin/Globulin Ratio 1.3 (1-3) 02/10/18 02/10/18 02/10/18 Range/Units 22:13 22:13 22:25 WBC (3.5-10.8) 10^3/ul RBC (4.0-5.4) 10^6/ul Hgb (14.0-18.0) g/dl Hct (42-52) % MCV (80-94) fL MCH (27-31) pg MCHC (31-36) g/dl RDW (10.5-15) % Plt Count (150-450) 10^3/ul MPV (7.4-10.4) um3 Neut % (Auto) (38-83) % Lymph % (Auto) (25-47) % [place] % (Auto) (0-7) % Eos % (Auto) (0-6) % Baso % (Auto) (0-2) % Absolute Neuts (auto) (1.5-7.7) 10^3/ul Absolute Lymphs (auto) (1.0-4.8) 10^3/ul Absolute Monos (auto) (0-0.8) 10^3/ul Absolute Eos (auto) (0-0.6) 10^3/ul Absolute Basos (auto) (0-0.2) 10^3/ul Absolute Nucleated RBC 10^3/ul Nucleated RBC % INR (Anticoag Therapy) 0.98 (0.77-1.02) D-Dimer, Quantitative < 200 (Less Than 230) ng/mL Patient Temperature Not Reportable ABG pH 7.33 L (7.35-7.45) ABG pH (Temp Correct) Not Reportable ABG pCO2 78 H* (35-45) mmHg ABG pCO2 (Temp Corrct Not Reportable ABG pO2 240 H (80-100) mmHg ABG pO2 (Temp Correct Not Reportable ABG HCO3 33.5 H (19-31) mmol/L ABG O2 Saturation 100.1 H (95-98) % ABG Base Excess 11.0 H (-2.0-2.0) Respiration Rate Not Reportable O2 Delivery Device vapotherm Ventilator Type Not Reportable Vent Mode Not Reportable FiO2 100 Inspiratory Time Not Reportable PEEP Not Reportable Pressure Support Not Reportable Pressure Control Not Reportable EPAP Not Reportable IPAP Not Reportable BiPAP Not Reportable Sodium (139-145) mmol/L Potassium (3.5-5.0) mmol/L Chloride (101-111) mmol/L Carbon Dioxide (22-32) mmol/L Anion Gap (2-11) mmol/L BUN (6-24) mg/dL Creatinine (0.67-1.17) mg/dL Est GFR ( Amer) (>60) Est GFR (Non-Af Amer) (>60) BUN/Creatinine Ratio (8-20) Glucose (70-100) mg/dL Lactic Acid 1.0 (0.5-2.0) mmol/L Calcium (8.6-10.3) mg/dL Total Bilirubin (0.2-1.0) mg/dL AST (13-39) U/L ALT (7-52) U/L Alkaline Phosphatase (34-104) U/L Troponin I (<0.04) ng/mL C-Reactive Protein (< 5.00) mg/L B-Natriuretic Peptide ( - 100) pg/mL Total Protein (6.4-8.9) g/dL Albumin (3.2-5.2) g/dL Globulin (2-4) g/dL Albumin/Globulin Ratio (1-3) Microbiology and Other Data: Microbiology 02/11/18 09:00 Gram Stain - Final Sputum Expectorated Assess/Plan/Problems-Billing Assessment: 67 yo M with h/o severe COPD on 02 at 3l at home, central pontine gliosis noted in 2010 presents with SOB - Patient Problems (1) Acute and chronic respiratory failure with hypercapnia Comment: Patient has chronic CO2 retention. Continue steroids, inhaled steroids, and Azithro Asked Dr. Torres to see pt in consultation (2) COPD exacerbation Comment: See above. Continue multi-drug therapy with steroids, bronchodilators , inhaled steroids and supplemental oxygen. (3) HTN (hypertension) Comment: started on norvasc. Uncontrolled (4) Aortic root aneurysm Comment: at 5 cm, pt was made aware of need for f/u and good HTN control (5) Hyponatremia Comment: worsening of chronic will recheck in AM, may be prerenal (6) DVT prophylaxis Comment: HSQ Status and Disposition: inpatient
--- NOTE | 2018-02-11 18:52 | CONS ---
PULMONARY CONSULTATION REPORT: DATE OF CONSULT: 02/11/18 CONSULTATION REQUESTED BY: Dr. Mindy Kunz. REASON FOR CONSULT: Evaluation of shortness of breath. HISTORY OF PRESENT ILLNESS: Mr. Chopra is a 67-year-old male, former smoker with significant smoking history, quit in August of 2017, with COPD, known to me from outpatient evaluation for COPD exacerbation. The patient presented for evaluation of worsening shortness of breath and is being treated for acute COPD exacerbation. The patient has history of severe emphysema and severe obstruction on PFTs. He has been hypoxemic also on admission into low 80s, has required Vapotherm then transitioned to 5 L [place]. Pulmonary consultation was requested for evaluation of COPD. Patient was seen and examined at bedside. Pt reported gradually worsening CHERRY over past few days. He has SOB and chronic cough at baseline. Denies fevers or chills since hospitalization. Cough is more productive. Has not been active recently. Denies urinary complaints, N, V, has constipation. He has been compliant with inhalers and nebs. PAST MEDICAL HISTORY: 1. COPD, chronic hypoxemic/hypercapnic respiratory failure. 2. Benign pontine lesion. 3. GERD. PAST SURGICAL HISTORY: Appendectomy. MEDICATIONS AT HOME: 1. DuoNeb. 2. Baclofen. 3. Fioricet. 4. Neurontin. 5. Nortriptyline. 6. Prilosec. 7. Zithromax. 8. Benzonatate. 9. Ibuprofen. 10. Incruse. 11. Oxycodone. ALLERGIES: MEPERIDINE, WARFARIN, AMOXICILLIN, CEFUROXIME, CLAVULANIC ACID. FAMILY HISTORY: CAD, colon cancer, lymphoma, brain tumor. SOCIAL HISTORY: Quit in August of 2017, 50-pack year smoking history. REVIEW OF SYSTEMS: All 14 systems reviewed and as per HPI. PHYSICAL EXAM: The patient is in bed, in no apparent distress. Vital Signs: Temperature 98.2, pulse 105, respiratory rate 20, O2 sat 100% on 5 L, blood pressure 149/69. HEENT: Pupils equal, reactive to light. Mucous membranes moist. Neck: Supple. Respiratory: Diminished breath sounds bilaterally. No accessory muscle use. Cardiovascular: S1, S2. Bilateral lower extremity edema present. Abdomen: Soft, nontender, nondistended. Bowel sounds are present. Extremities: Normal range of motion. DIAGNOSTIC STUDIES/LAB DATA: WBC count 12.8, hemoglobin 15.6, hematocrit 45, platelet count 298. Blood gas analysis showed respiratory acidosis, pH of 7.33 , pCO2 of 78, pO2 of 240, bicarb 33 on 100% FiO2. Sodium of 128, potassium 3.7 , chloride 86, bicarb 25, BUN is 7, creatinine 0.55. BNP 122. CTA on admission was personally reviewed by me, significant emphysematous changes bilaterally upper and lower zones, no suspicious nodules or masses present. IMPRESSION AND RECOMMENDATIONS: 67-year-old male with a history of severe chronic obstructive pulmonary disease, admitted with acute chronic obstructive pulmonary disease exacerbation. Patient has severe emphysema, no suspicious masses or nodules on CT chest Continue with current management. Pathophysiology of chronic obstructive pulmonary disease was discussed in detail. Patient was initiated on steroids, nebs and abx. He still has wheeze on auscultation Will not taper steroids yet He will beenfit from sub acute rehab/ pulm rehab upon d/c He has agreed to pursue this upon d/c Thank you for allowing me to participate in the care of your patient. Discussed with Dr. Kunz. [id number]/[facility] #: [id number] ROGER
[2018-02-11] MEDS ORDERED: Ondansetron ODT TAB* 4 MG SL PRN (19:25)
[2018-02-11] MEDS: Gabapentin CAP(*) 300 MG PO SCH (19:26)
[2018-02-11] MEDS: Nortriptyline CAP* 10 MG PO SCH (21:45)
[2018-02-11] MEDS: Heparin VIAL(*) 5000 UNITS/ML VIAL (FIVE THOUSAND) SUBCUT SCH (21:45)
[2018-02-12] MEDS: methylPREDNISolone SOD 40 MG* 1 ML VIAL IV SCH ×3 (00:19→21:36)
[2018-02-12] MEDS ORDERED: Levofloxacin 750 MG IVPREMIX(* 750 MG/150 ML BAG IVPB SCH (01:00)
[2018-02-12] MEDS: Heparin VIAL(*) 5000 UNITS/ML VIAL (FIVE THOUSAND) SUBCUT SCH ×3 (05:29→21:36)
[2018-02-12] MEDS ORDERED: methylPREDNISolone SOD 40 MG* 1 ML VIAL IV SCH (06:00)
[2018-02-12 06:11] LABS: Hematocrit 45 % (42-52); Hemoglobin 15.2 g/dl (14.0-18.0); Mean Corpuscular HGB Conc 34 g/dl (31-36); Mean Corpuscular Hemoglobin 31 pg (27-31); Mean Corpuscular Volume 92 fL (80-94); Mean Platelet Volume 6.5 um3 (7.4-10.4); Platelet Count 302 10^3/ul (150-450); Red Blood Count 4.88 10^6/ul (4.0-5.4); Red Cell Distribution Width 13 % (10.5-15); White Blood Count 9.9 10^3/ul (3.5-10.8)
[2018-02-12] MEDS: Tiotropium CAP.INH* CAP.INH/18 MCG (USE ORDER SET !) INH SCH (08:55)
[2018-02-12] MEDS: Mometasone/Formoter 200/5 MDI INH SCH ×2 (08:57→19:56)
[2018-02-12] MEDS: Omeprazole CAP* 20 MG PO SCH (09:42)
[2018-02-12] MEDS: amLODIPine TAB* 5 MG PO SCH (09:42)
[2018-02-12] MEDS: Azithromycin IV(*) 500 MG in NS 0.9% 250 ML* 250 ML IVPB SCH (09:42)
[2018-02-12 10:32] LABS: EGFR Non-African American 136.2 (>60)
--- NOTE | 2018-02-12 13:33 | PN ---
Subjective Date of Service: 02/12/18 Interval History: Pt c/o dizziness in AM when first got up from bed, then it resolved. Breathing is a little better. Coughing up clear sputum. As per D/w RN, he got very SOB when walked to bathroom Objective Active Medications: Acetaminophen (Tylenol Tab*) 650 mg PO Q6H PRN PRN Reason: FEVER/PAIN Albuterol/Ipratropium (Duoneb (Albuterol 2.5 Mg/Ipratropium 0.5 Mg)) 1 neb INH Q4H PRN PRN Reason: SOB/WHEEZING Amlodipine Besylate (Norvasc Tab*) 10 mg PO DAILY [facility] Last Admin: 02/12/18 09:42 Dose: 10 mg Baclofen (Lioresal Tab*) 5 mg PO BID PRN PRN Reason: SPASMS Gabapentin (Neurontin Cap(*)) 300 mg PO 1930 [facility] Last Admin: 02/11/18 19:26 Dose: 300 mg Heparin Sodium (Porcine) (Heparin Vial(*)) 5,000 units SUBCUT Q8HR [facility] Last Admin: 02/12/18 05:29 Dose: 5,000 units Azithromycin 500 mg/ Sodium (Chloride) 250 mls @ 250 mls/hr IVPB Q24H [facility] Last Admin: 02/12/18 09:42 Dose: 250 mls/hr Levalbuterol HCl (Xopenex 1.25 Mg/0.5 Ml Neb.Wendy*) 1.25 mg INH Q2H PRN PRN Reason: DYSPNEA Last Admin: 02/11/18 09:11 Dose: 1.25 mg Methylprednisolone Sodium Succinate (Solu-Medrol 40 Mg) 40 mg IV Q12H [facility] Mometasone Furoate/Formoterol Fumar (Dulera 200/5 Mdi*) 2 puff INH BID [facility] Last Admin: 02/12/18 08:57 Dose: 2 puff Nortriptyline HCl (Pamelor Cap*) 10 mg PO BEDTIME [facility] Last Admin: 02/11/18 21:45 Dose: 10 mg Omeprazole (Prilosec Cap*) 40 mg PO DAILY@0730 [facility] Last Admin: 02/12/18 09:42 Dose: 40 mg Oxycodone HCl (Roxycodone Tab*) 5 mg PO BID PRN PRN Reason: HEADACHE Tiotropium [place] (Spiriva Cap.Inh*) 1 cap INH DAILY [facility] Last Admin: 02/12/18 08:55 Dose: 1 cap.inh Vital Signs - 8 hr 02/12/18 02/12/18 02/12/18 05:42 07:15 08:00 Temperature 98.5 F Pulse Rate 95 Respiratory 20 20 Rate Blood Pressure 132/56 (mmHg) O2 Sat by Pulse 94 99 Oximetry 02/12/18 11:07 Temperature 98.5 F Pulse Rate 92 Respiratory 16 Rate Blood Pressure 124/65 (mmHg) O2 Sat by Pulse 100 Oximetry Oxygen Devices in Use Now: Nasal Cannula Appearance: 67 yo F in nAD, aAOx3 Eyes: No Scleral Icterus, PERRLA Ears/Nose/Mouth/Throat: NL Teeth, Lips, Gums, Mucous Membranes Moist Neck: NL Appearance and Movements; NL JVP, Trachea Midline Respiratory: Symmetrical Chest Expansion and Respiratory Effort, - - diffuse b/ l wheezes posteriorly Cardiovascular: NL Sounds; No Murmurs; No JVD, RRR Abdominal: NL Sounds; No Tenderness; No Distention, No Hepatosplenomegaly Lymphatic: No Cervical Adenopathy Extremities: No Edema, No Clubbing, Cyanosis Skin: No Rash or Ulcers, No Nodules or Sclerosis Neurological: Alert and Oriented x 3, NL Muscle Strength and Tone Result Diagrams: 02/12/18 05:23 02/12/18 05:16 Additional Lab and Data: Lab Results 02/10/18 02/10/18 02/10/18 Range/Units 22:13 22:13 22:13 WBC 12.8 H (3.5-10.8) 10^3/ul RBC 4.98 (4.0-5.4) 10^6/ul Hgb 15.6 (14.0-18.0) g/dl Hct 45 (42-52) % MCV 91 (80-94) fL MCH 31 (27-31) pg MCHC 35 (31-36) g/dl RDW 13 (10.5-15) % Plt Count 298 (150-450) 10^3/ul MPV 6.2 L (7.4-10.4) um3 Neut % (Auto) 78.7 (38-83) % Lymph % (Auto) 9.5 L (25-47) % [place] % (Auto) 11.3 H (0-7) % Eos % (Auto) 0.2 (0-6) % Baso % (Auto) 0.3 (0-2) % Absolute Neuts (auto) 10.1 H (1.5-7.7) 10^3/ul Absolute Lymphs (auto) 1.2 (1.0-4.8) 10^3/ul Absolute Monos (auto) 1.4 H (0-0.8) 10^3/ul Absolute Eos (auto) 0 (0-0.6) 10^3/ul Absolute Basos (auto) 0 (0-0.2) 10^3/ul Absolute Nucleated RBC 0 10^3/ul Nucleated RBC % 0.1 INR (Anticoag Therapy) (0.77-1.02) D-Dimer, Quantitative (Less Than 230) ng/mL Patient Temperature ABG pH (7.35-7.45) ABG pH (Temp Correct) ABG pCO2 (35-45) mmHg ABG pCO2 (Temp Corrct ABG pO2 (80-100) mmHg ABG pO2 (Temp Correct ABG HCO3 (19-31) mmol/L ABG O2 Saturation (95-98) % ABG Base Excess (-2.0-2.0) Respiration Rate O2 Delivery Device Ventilator Type Vent Mode FiO2 Inspiratory Time PEEP Pressure Support Pressure Control EPAP IPAP BiPAP Sodium 128 L (139-145) mmol/L Potassium 3.7 (3.5-5.0) mmol/L Chloride 86 L (101-111) mmol/L Carbon Dioxide 35 H (22-32) mmol/L Anion Gap 7 (2-11) mmol/L BUN 7 (6-24) mg/dL Creatinine 0.55 L (0.67-1.17) mg/dL Est GFR ( Amer) 189.9 (>60) Est GFR (Non-Af Amer) 147.7 (>60) BUN/Creatinine Ratio 12.7 (8-20) Glucose 116 H (70-100) mg/dL Lactic Acid (0.5-2.0) mmol/L Calcium 9.5 (8.6-10.3) mg/dL Total Bilirubin 0.50 (0.2-1.0) mg/dL AST 17 (13-39) U/L ALT 18 (7-52) U/L Alkaline Phosphatase 51 (34-104) U/L Troponin I 0.01 (<0.04) ng/mL C-Reactive Protein 1.24 (< 5.00) mg/L B-Natriuretic Peptide 122 H ( - 100) pg/mL Total Protein 6.9 (6.4-8.9) g/dL Albumin 3.9 (3.2-5.2) g/dL Globulin 3.0 (2-4) g/dL Albumin/Globulin Ratio 1.3 (1-3) 02/10/18 02/10/18 02/10/18 Range/Units 22:13 22:13 22:25 WBC (3.5-10.8) 10^3/ul RBC (4.0-5.4) 10^6/ul Hgb (14.0-18.0) g/dl Hct (42-52) % MCV (80-94) fL MCH (27-31) pg MCHC (31-36) g/dl RDW (10.5-15) % Plt Count (150-450) 10^3/ul MPV (7.4-10.4) um3 Neut % (Auto) (38-83) % Lymph % (Auto) (25-47) % [place] % (Auto) (0-7) % Eos % (Auto) (0-6) % Baso % (Auto) (0-2) % Absolute Neuts (auto) (1.5-7.7) 10^3/ul Absolute Lymphs (auto) (1.0-4.8) 10^3/ul Absolute Monos (auto) (0-0.8) 10^3/ul Absolute Eos (auto) (0-0.6) 10^3/ul Absolute Basos (auto) (0-0.2) 10^3/ul Absolute Nucleated RBC 10^3/ul Nucleated RBC % INR (Anticoag Therapy) 0.98 (0.77-1.02) D-Dimer, Quantitative < 200 (Less Than 230) ng/mL Patient Temperature Not Reportable ABG pH 7.33 L (7.35-7.45) ABG pH (Temp Correct) Not Reportable ABG pCO2 78 H* (35-45) mmHg ABG pCO2 (Temp Corrct Not Reportable ABG pO2 240 H (80-100) mmHg ABG pO2 (Temp Correct Not Reportable ABG HCO3 33.5 H (19-31) mmol/L ABG O2 Saturation 100.1 H (95-98) % ABG Base Excess 11.0 H (-2.0-2.0) Respiration Rate Not Reportable O2 Delivery Device vapotherm Ventilator Type Not Reportable Vent Mode Not Reportable FiO2 100 Inspiratory Time Not Reportable PEEP Not Reportable Pressure Support Not Reportable Pressure Control Not Reportable EPAP Not Reportable IPAP Not Reportable BiPAP Not Reportable Sodium (139-145) mmol/L Potassium (3.5-5.0) mmol/L Chloride (101-111) mmol/L Carbon Dioxide (22-32) mmol/L Anion Gap (2-11) mmol/L BUN (6-24) mg/dL Creatinine (0.67-1.17) mg/dL Est GFR ( Amer) (>60) Est GFR (Non-Af Amer) (>60) BUN/Creatinine Ratio (8-20) Glucose (70-100) mg/dL Lactic Acid 1.0 (0.5-2.0) mmol/L Calcium (8.6-10.3) mg/dL Total Bilirubin (0.2-1.0) mg/dL AST (13-39) U/L ALT (7-52) U/L Alkaline Phosphatase (34-104) U/L Troponin I (<0.04) ng/mL C-Reactive Protein (< 5.00) mg/L B-Natriuretic Peptide ( - 100) pg/mL Total Protein (6.4-8.9) g/dL Albumin (3.2-5.2) g/dL Globulin (2-4) g/dL Albumin/Globulin Ratio (1-3) Microbiology and Other Data: Microbiology 02/11/18 09:00 Gram Stain - Final Sputum Expectorated Assess/Plan/Problems-Billing Assessment: 67 yo M with h/o severe COPD on 02 at 3l at home, central pontine gliosis noted in 2010 presents with SOB - Patient Problems (1) Acute and chronic respiratory failure with hypercapnia Comment: Patient has chronic CO2 retention. Continue steroids, inhaled steroids, and Azithro Appreciated Dr. Chahal's consultation (2) COPD exacerbation Comment: See above. Continue multi-drug therapy with steroids, bronchodilators , inhaled steroids and supplemental oxygen. (3) HTN (hypertension) Comment: started on norvasc. controlled (4) Aortic root aneurysm Comment: at 5 cm, pt was made aware of need for f/u and good HTN control (5) Hyponatremia Comment: worsening of chronic, prerenal, improving (6) DVT prophylaxis Comment: HSQ Status and Disposition: inpatient
[2018-02-12] MEDS: Acetaminophen TAB* 325 MG PO PRN (18:29)
[2018-02-12] MEDS: Gabapentin CAP(*) 300 MG PO SCH (19:31)
[2018-02-12] MEDS: Artificial Tears* 15 ML BTL BOTH EYES PRN (21:36)
[2018-02-12] MEDS: Nortriptyline CAP* 10 MG PO SCH (21:36)
[2018-02-13] MEDS: Heparin VIAL(*) 5000 UNITS/ML VIAL (FIVE THOUSAND) SUBCUT SCH ×3 (05:56→20:14)
[2018-02-13] MEDS: Mometasone/Formoter 200/5 MDI INH SCH ×2 (07:33→20:06)
[2018-02-13] MEDS: Tiotropium CAP.INH* CAP.INH/18 MCG (USE ORDER SET !) INH SCH (07:34)
[2018-02-13] MEDS: amLODIPine TAB* 5 MG PO SCH (09:34)
[2018-02-13] MEDS: Azithromycin IV(*) 500 MG in NS 0.9% 250 ML* 250 ML IVPB SCH (09:34)
[2018-02-13] MEDS: methylPREDNISolone SOD 40 MG* 1 ML VIAL IV SCH ×2 (09:34→20:14)
[2018-02-13] MEDS: Omeprazole CAP* 20 MG PO SCH (09:34)
--- NOTE | 2018-02-13 11:56 | PN ---
Subjective Date of Service: 02/13/18 Interval History: Pt feels a little better. Still very SOB with minimal exercise. Objective Active Medications: Acetaminophen (Tylenol Tab*) 650 mg PO Q6H PRN PRN Reason: FEVER/PAIN Last Admin: 02/12/18 18:29 Dose: 650 mg Albuterol/Ipratropium (Duoneb (Albuterol 2.5 Mg/Ipratropium 0.5 Mg)) 1 neb INH Q4H PRN PRN Reason: SOB/WHEEZING Amlodipine Besylate (Norvasc Tab*) 10 mg PO DAILY [facility] Last Admin: 02/13/18 09:34 Dose: 10 mg Baclofen (Lioresal Tab*) 5 mg PO BID PRN PRN Reason: SPASMS Gabapentin (Neurontin Cap(*)) 300 mg PO 1930 [facility] Last Admin: 02/12/18 19:31 Dose: 300 mg Heparin Sodium (Porcine) (Heparin Vial(*)) 5,000 units SUBCUT Q8HR [facility] Last Admin: 02/13/18 05:56 Dose: 5,000 units Azithromycin 500 mg/ Sodium (Chloride) 250 mls @ 250 mls/hr IVPB Q24H [facility] Last Admin: 02/13/18 09:34 Dose: 250 mls/hr Levalbuterol HCl (Xopenex 1.25 Mg/0.5 Ml Neb.Wendy*) 1.25 mg INH Q2H PRN PRN Reason: DYSPNEA Last Admin: 02/11/18 09:11 Dose: 1.25 mg Methylprednisolone Sodium Succinate (Solu-Medrol 40 Mg) 40 mg IV Q12H [facility] Last Admin: 02/13/18 09:34 Dose: 40 mg Mometasone Furoate/Formoterol Fumar (Dulera 200/5 Mdi*) 2 puff INH BID [facility] Last Admin: 02/13/18 07:33 Dose: 2 puff Nortriptyline HCl (Pamelor Cap*) 10 mg PO BEDTIME [facility] Last Admin: 02/12/18 21:36 Dose: 10 mg Omeprazole (Prilosec Cap*) 40 mg PO DAILY@0730 [facility] Last Admin: 02/13/18 09:34 Dose: 40 mg Oxycodone HCl (Roxycodone Tab*) 5 mg PO BID PRN PRN Reason: HEADACHE Last Admin: 02/13/18 03:30 Dose: 5 mg Polyvinyl Alcohol (Polyvinyl Alcohol 1.4% Opth*) 1 drop BOTH EYES Q2H PRN PRN Reason: DRY EYE Last Admin: 02/12/18 21:36 Dose: 1 drop Tiotropium [place] (Spiriva Cap.Inh*) 1 cap INH DAILY [facility] Last Admin: 02/13/18 07:34 Dose: 1 cap.inh Vital Signs - 8 hr 02/13/18 02/13/18 02/13/18 05:55 07:20 08:00 Temperature 98.1 F Pulse Rate 93 Respiratory 18 20 18 Rate Blood Pressure 123/58 (mmHg) O2 Sat by Pulse 100 Oximetry Oxygen Devices in Use Now: Nasal Cannula Appearance: 67 yo M in nAD, aAOx3 Eyes: No Scleral Icterus, PERRLA Ears/Nose/Mouth/Throat: NL Teeth, Lips, Gums, Mucous Membranes Moist Neck: NL Appearance and Movements; NL JVP, Trachea Midline Respiratory: Symmetrical Chest Expansion and Respiratory Effort, - - diffuse wheezes b/l lungs and prolonged expiratory phase Cardiovascular: NL Sounds; No Murmurs; No JVD, RRR Abdominal: NL Sounds; No Tenderness; No Distention Lymphatic: No Cervical Adenopathy Extremities: No Clubbing, Cyanosis Skin: No Rash or Ulcers, No Nodules or Sclerosis Neurological: Alert and Oriented x 3, NL Muscle Strength and Tone Result Diagrams: 02/12/18 05:23 02/12/18 05:16 Additional Lab and Data: Lab Results 02/10/18 02/10/18 02/10/18 Range/Units 22:13 22:13 22:13 WBC 12.8 H (3.5-10.8) 10^3/ul RBC 4.98 (4.0-5.4) 10^6/ul Hgb 15.6 (14.0-18.0) g/dl Hct 45 (42-52) % MCV 91 (80-94) fL MCH 31 (27-31) pg MCHC 35 (31-36) g/dl RDW 13 (10.5-15) % Plt Count 298 (150-450) 10^3/ul MPV 6.2 L (7.4-10.4) um3 Neut % (Auto) 78.7 (38-83) % Lymph % (Auto) 9.5 L (25-47) % [place] % (Auto) 11.3 H (0-7) % Eos % (Auto) 0.2 (0-6) % Baso % (Auto) 0.3 (0-2) % Absolute Neuts (auto) 10.1 H (1.5-7.7) 10^3/ul Absolute Lymphs (auto) 1.2 (1.0-4.8) 10^3/ul Absolute Monos (auto) 1.4 H (0-0.8) 10^3/ul Absolute Eos (auto) 0 (0-0.6) 10^3/ul Absolute Basos (auto) 0 (0-0.2) 10^3/ul Absolute Nucleated RBC 0 10^3/ul Nucleated RBC % 0.1 INR (Anticoag Therapy) (0.77-1.02) D-Dimer, Quantitative (Less Than 230) ng/mL Patient Temperature ABG pH (7.35-7.45) ABG pH (Temp Correct) ABG pCO2 (35-45) mmHg ABG pCO2 (Temp Corrct ABG pO2 (80-100) mmHg ABG pO2 (Temp Correct ABG HCO3 (19-31) mmol/L ABG O2 Saturation (95-98) % ABG Base Excess (-2.0-2.0) Respiration Rate O2 Delivery Device Ventilator Type Vent Mode FiO2 Inspiratory Time PEEP Pressure Support Pressure Control EPAP IPAP BiPAP Sodium 128 L (139-145) mmol/L Potassium 3.7 (3.5-5.0) mmol/L Chloride 86 L (101-111) mmol/L Carbon Dioxide 35 H (22-32) mmol/L Anion Gap 7 (2-11) mmol/L BUN 7 (6-24) mg/dL Creatinine 0.55 L (0.67-1.17) mg/dL Est GFR ( Amer) 189.9 (>60) Est GFR (Non-Af Amer) 147.7 (>60) BUN/Creatinine Ratio 12.7 (8-20) Glucose 116 H (70-100) mg/dL Lactic Acid (0.5-2.0) mmol/L Calcium 9.5 (8.6-10.3) mg/dL Total Bilirubin 0.50 (0.2-1.0) mg/dL AST 17 (13-39) U/L ALT 18 (7-52) U/L Alkaline Phosphatase 51 (34-104) U/L Troponin I 0.01 (<0.04) ng/mL C-Reactive Protein 1.24 (< 5.00) mg/L B-Natriuretic Peptide 122 H ( - 100) pg/mL Total Protein 6.9 (6.4-8.9) g/dL Albumin 3.9 (3.2-5.2) g/dL Globulin 3.0 (2-4) g/dL Albumin/Globulin Ratio 1.3 (1-3) 02/10/18 02/10/18 02/10/18 Range/Units 22:13 22:13 22:25 WBC (3.5-10.8) 10^3/ul RBC (4.0-5.4) 10^6/ul Hgb (14.0-18.0) g/dl Hct (42-52) % MCV (80-94) fL MCH (27-31) pg MCHC (31-36) g/dl RDW (10.5-15) % Plt Count (150-450) 10^3/ul MPV (7.4-10.4) um3 Neut % (Auto) (38-83) % Lymph % (Auto) (25-47) % [place] % (Auto) (0-7) % Eos % (Auto) (0-6) % Baso % (Auto) (0-2) % Absolute Neuts (auto) (1.5-7.7) 10^3/ul Absolute Lymphs (auto) (1.0-4.8) 10^3/ul Absolute Monos (auto) (0-0.8) 10^3/ul Absolute Eos (auto) (0-0.6) 10^3/ul Absolute Basos (auto) (0-0.2) 10^3/ul Absolute Nucleated RBC 10^3/ul Nucleated RBC % INR (Anticoag Therapy) 0.98 (0.77-1.02) D-Dimer, Quantitative < 200 (Less Than 230) ng/mL Patient Temperature Not Reportable ABG pH 7.33 L (7.35-7.45) ABG pH (Temp Correct) Not Reportable ABG pCO2 78 H* (35-45) mmHg ABG pCO2 (Temp Corrct Not Reportable ABG pO2 240 H (80-100) mmHg ABG pO2 (Temp Correct Not Reportable ABG HCO3 33.5 H (19-31) mmol/L ABG O2 Saturation 100.1 H (95-98) % ABG Base Excess 11.0 H (-2.0-2.0) Respiration Rate Not Reportable O2 Delivery Device vapotherm Ventilator Type Not Reportable Vent Mode Not Reportable FiO2 100 Inspiratory Time Not Reportable PEEP Not Reportable Pressure Support Not Reportable Pressure Control Not Reportable EPAP Not Reportable IPAP Not Reportable BiPAP Not Reportable Sodium (139-145) mmol/L Potassium (3.5-5.0) mmol/L Chloride (101-111) mmol/L Carbon Dioxide (22-32) mmol/L Anion Gap (2-11) mmol/L BUN (6-24) mg/dL Creatinine (0.67-1.17) mg/dL Est GFR ( Amer) (>60) Est GFR (Non-Af Amer) (>60) BUN/Creatinine Ratio (8-20) Glucose (70-100) mg/dL Lactic Acid 1.0 (0.5-2.0) mmol/L Calcium (8.6-10.3) mg/dL Total Bilirubin (0.2-1.0) mg/dL AST (13-39) U/L ALT (7-52) U/L Alkaline Phosphatase (34-104) U/L Troponin I (<0.04) ng/mL C-Reactive Protein (< 5.00) mg/L B-Natriuretic Peptide ( - 100) pg/mL Total Protein (6.4-8.9) g/dL Albumin (3.2-5.2) g/dL Globulin (2-4) g/dL Albumin/Globulin Ratio (1-3) Microbiology and Other Data: Microbiology 02/11/18 09:00 Gram Stain - Final Sputum Expectorated Assess/Plan/Problems-Billing Assessment: 67 yo M with h/o severe COPD on 02 at 3l at home, central pontine gliosis noted in 2010 presents with SOB - Patient Problems (1) Acute and chronic respiratory failure with hypercapnia Comment: Patient has chronic CO2 retention. Continue steroids, inhaled steroids, and Azithro Appreciated Dr. Chahal's consultation (2) COPD exacerbation Comment: See above. Continue multi-drug therapy with steroids, bronchodilators , inhaled steroids and supplemental oxygen. (3) HTN (hypertension) Comment: started on norvasc. controlled (4) Aortic root aneurysm Comment: at 5 cm, pt was made aware of need for f/u and good HTN control (5) Hyponatremia Comment: worsening of chronic, prerenal, improving (6) DVT prophylaxis Comment: HSQ Status and Disposition: inpatient, PT ordered, will need 1-2 more days of inpatient tx.
--- NOTE | 2018-02-13 13:10 | PN ---
Progress Note - Progress Note Date of Service: 02/13/18 - Pulm f/u note Note: Pt seen and examined at bedside. Pt reports improvement in SOB, has not tried getting out of bed yet. Cough is intermittent only. Active Medications Generic Name Dose Route Start Last Admin Trade Name Freq PRN Reason Stop Dose Admin Acetaminophen 650 mg 02/11/18 02:41 02/12/18 18:29 Tylenol Tab* PO 650 mg Q6H PRN Administration FEVER/PAIN Albuterol/Ipratropium 1 neb 02/11/18 09:03 Duoneb (Albuterol 2.5 Mg/Ipratropium 0.5 Mg) INH Q4H PRN SOB/WHEEZING Amlodipine Besylate 10 mg 02/11/18 15:00 02/13/18 09:34 Norvasc Tab* PO 10 mg DAILY [facility] Administration Baclofen 5 mg 02/11/18 05:56 Lioresal Tab* PO BID PRN SPASMS Gabapentin 300 mg 02/11/18 19:30 02/12/18 19:31 Neurontin Cap(*) PO 300 mg 1930 [facility] Administration Heparin Sodium (Porcine) 5,000 units 02/11/18 22:00 02/13/18 05:56 Heparin Vial(*) SUBCUT 5,000 units Q8HR [facility] Administration Azithromycin 500 mg/ Sodium 250 mls @ 250 mls/hr 02/12/18 10:00 02/13/18 09: 34 Chloride IVPB 250 mls/hr Q24H [facility] Administration Levalbuterol HCl 1.25 mg 02/11/18 07:46 02/11/18 09:11 Xopenex 1.25 Mg/0.5 Ml Neb.Wendy* INH 1.25 mg Q2H PRN Administration DYSPNEA Methylprednisolone Sodium Succinate 40 mg 02/12/18 21:00 02/13/18 09:34 Solu-Medrol 40 Mg IV 40 mg Q12H [facility] Administration Mometasone Furoate/Formoterol Fumar 2 puff 02/11/18 09:00 02/13/18 07:33 Dulera 200/5 Mdi* INH 2 puff BID [facility] Administration Nortriptyline HCl 10 mg 02/11/18 21:00 02/12/18 21:36 Pamelor Cap* PO 10 mg BEDTIME [facility] Administration Omeprazole 40 mg 02/11/18 07:30 02/13/18 09:34 Prilosec Cap* PO 40 mg DAILY@0730 [facility] Administration Oxycodone HCl 5 mg 02/11/18 05:56 02/13/18 03:30 Roxycodone Tab* PO 5 mg BID PRN Administration HEADACHE Polyvinyl Alcohol 1 drop 02/12/18 18:33 02/12/18 21:36 Polyvinyl Alcohol 1.4% Opth* BOTH EYES 1 drop Q2H PRN Administration DRY EYE Tiotropium [place] 1 cap 02/11/18 09:00 02/13/18 07:34 Spiriva Cap.Inh* INH 1 cap.inh DAILY [facility] Administration Vital Signs Temp Pulse Resp BP Pulse Ox 98.1 F 93 18 123/58 100 02/13/18 07:20 02/13/18 07:20 02/13/18 08:00 02/13/18 07:20 02/13/18 07:20 O/E: Pt in NAD, alert, awake, oriented x3 HEENT: PERRLA, No JVD Lungs: Diminished air entry b/l, exp wheeze present CVS: S1, S2+, regular Abd: Soft, BS+ Ext: Normal ROM, trace edema + Neuro: No focal deficits Skin: NO rash or bruises 02/10/18 02/10/18 02/10/18 22:13 22:13 22:13 WBC 12.8 H RBC 4.98 Hgb 15.6 Hct 45 MCV 91 MCH 31 MCHC 35 RDW 13 Plt Count 298 MPV 6.2 L Neut % (Auto) 78.7 Lymph % (Auto) 9.5 L [place] % (Auto) 11.3 H Eos % (Auto) 0.2 Baso % (Auto) 0.3 Absolute Neuts (auto) 10.1 H Absolute Lymphs (auto) 1.2 Absolute Monos (auto) 1.4 H Absolute Eos (auto) 0 Absolute Basos (auto) 0 Absolute Nucleated RBC 0 Nucleated RBC % 0.1 INR (Anticoag Therapy) D-Dimer, Quantitative Patient Temperature ABG pH ABG pH (Temp Correct) ABG pCO2 ABG pCO2 (Temp Corrct ABG pO2 ABG pO2 (Temp Correct ABG HCO3 ABG O2 Saturation ABG Base Excess Respiration Rate O2 Delivery Device Ventilator Type Vent Mode FiO2 Inspiratory Time PEEP Pressure Support Pressure Control EPAP IPAP BiPAP Sodium 128 L Potassium 3.7 Chloride 86 L Carbon Dioxide 35 H Anion Gap 7 BUN 7 Creatinine 0.55 L Est GFR ( Amer) 189.9 Est GFR (Non-Af Amer) 147.7 BUN/Creatinine Ratio 12.7 Glucose 116 H Lactic Acid Calcium 9.5 Total Bilirubin 0.50 AST 17 ALT 18 Alkaline Phosphatase 51 Troponin I 0.01 C-Reactive Protein 1.24 B-Natriuretic Peptide 122 H Total Protein 6.9 Albumin 3.9 Globulin 3.0 Albumin/Globulin Ratio 1.3 Urine Color Urine Appearance Urine pH Ur Specific [place] Urine Protein Urine Ketones Urine Blood Urine Nitrate Urine Bilirubin Urine Urobilinogen Ur Leukocyte Esterase Urine WBC (Auto) Urine RBC (Auto) Urine Bacteria Urine Glucose 02/10/18 02/10/18 02/10/18 22:13 22:13 22:25 WBC RBC Hgb Hct MCV MCH MCHC RDW Plt Count MPV Neut % (Auto) Lymph % (Auto) [place] % (Auto) Eos % (Auto) Baso % (Auto) Absolute Neuts (auto) Absolute Lymphs (auto) Absolute Monos (auto) Absolute Eos (auto) Absolute Basos (auto) Absolute Nucleated RBC Nucleated RBC % INR (Anticoag Therapy) 0.98 D-Dimer, Quantitative < 200 Patient Temperature Not Reportable ABG pH 7.33 L ABG pH (Temp Correct) Not Reportable ABG pCO2 78 H* ABG pCO2 (Temp Corrct Not Reportable ABG pO2 240 H ABG pO2 (Temp Correct Not Reportable ABG HCO3 33.5 H ABG O2 Saturation 100.1 H ABG Base Excess 11.0 H Respiration Rate Not Reportable O2 Delivery Device vapotherm Ventilator Type Not Reportable Vent Mode Not Reportable FiO2 100 Inspiratory Time Not Reportable PEEP Not Reportable Pressure Support Not Reportable Pressure Control Not Reportable EPAP Not Reportable IPAP Not Reportable BiPAP Not Reportable Sodium Potassium Chloride Carbon Dioxide Anion Gap BUN Creatinine Est GFR ( Amer) Est GFR (Non-Af Amer) BUN/Creatinine Ratio Glucose Lactic Acid 1.0 Calcium Total Bilirubin AST ALT Alkaline Phosphatase Troponin I C-Reactive Protein B-Natriuretic Peptide Total Protein Albumin Globulin Albumin/Globulin Ratio Urine Color Urine Appearance Urine pH Ur Specific [place] Urine Protein Urine Ketones Urine Blood Urine Nitrate Urine Bilirubin Urine Urobilinogen Ur Leukocyte Esterase Urine WBC (Auto) Urine RBC (Auto) Urine Bacteria Urine Glucose 02/11/18 02/12/18 02/12/18 00:37 05:16 05:23 WBC 9.9 RBC 4.88 Hgb 15.2 Hct 45 MCV 92 MCH 31 MCHC 34 RDW 13 Plt Count 302 MPV 6.5 L Neut % (Auto) Lymph % (Auto) [place] % (Auto) Eos % (Auto) Baso % (Auto) Absolute Neuts (auto) Absolute Lymphs (auto) Absolute Monos (auto) Absolute Eos (auto) Absolute Basos (auto) Absolute Nucleated RBC Nucleated RBC % INR (Anticoag Therapy) D-Dimer, Quantitative Patient Temperature ABG pH ABG pH (Temp Correct) ABG pCO2 ABG pCO2 (Temp Corrct ABG pO2 ABG pO2 (Temp Correct ABG HCO3 ABG O2 Saturation ABG Base Excess Respiration Rate O2 Delivery Device Ventilator Type Vent Mode FiO2 Inspiratory Time PEEP Pressure Support Pressure Control EPAP IPAP BiPAP Sodium 134 L Potassium 4.7 Chloride 90 L Carbon Dioxide 40 H Anion Gap 4 BUN 9 Creatinine 0.59 L Est GFR ( Amer) 175.2 Est GFR (Non-Af Amer) 136.2 BUN/Creatinine Ratio 15.3 Glucose 125 H Lactic Acid Calcium 9.0 Total Bilirubin AST ALT Alkaline Phosphatase Troponin I C-Reactive Protein B-Natriuretic Peptide Total Protein Albumin Globulin Albumin/Globulin Ratio Urine Color Straw Urine Appearance Clear Urine pH 7.0 Ur Specific [place] 1.004 L Urine Protein Negative Urine Ketones Negative Urine Blood 1+ A Urine Nitrate Negative Urine Bilirubin Negative Urine Urobilinogen Negative Ur Leukocyte Esterase Negative Urine WBC (Auto) Trace(0-5/hpf) Urine RBC (Auto) Trace(0-2/hpf) Urine Bacteria Absent Urine Glucose Negative I/R: 67 y o m with significant smoking history, quit Aug 2017, Aortic root dilation, severe COPD/emphysema, O2 dependant. Pt was admitted for worsening SOB , being treated for acute COPD exacerbation Pt reports slight improvement in breathing CT chest with evidence of severe centrilobar emphysematous changes Hypoxia requiring O2 supplementation Improving slowly c/w Solumedrol 40mg q 12, might benefit from slow taper Will c/w nebs at home PT/OT as out pt pCO2 elevated significantly, will benefit from Trilogy at home Will refer for lung transplant as out pt Will need PFTs as out pt
[2018-02-13] MEDS: Gabapentin CAP(*) 300 MG PO SCH (20:09)
[2018-02-13] MEDS: Nortriptyline CAP* 10 MG PO SCH (20:15)
[2018-02-13] MEDS: Acetaminophen TAB* 325 MG PO PRN (20:31)
[2018-02-14] MEDS: Heparin VIAL(*) 5000 UNITS/ML VIAL (FIVE THOUSAND) SUBCUT SCH ×3 (05:50→22:24)
[2018-02-14 06:01] LABS: ABS Basophils 0 10^3/ul (0-0.2); ABS Eosinophils 0 10^3/ul (0-0.6); ABS Lymphocytes 0.4 10^3/ul (1.0-4.8); ABS Monocytes 0.6 10^3/ul (0-0.8); ABS Neutrophils 8.7 10^3/ul (1.5-7.7); ABS Nucleated RBC 0 10^3/ul; Eosinophil % 0 % (0-6); Hematocrit 41 % (42-52); Hemoglobin 14.1 g/dl (14.0-18.0); Lymphocyte % 4.4 % (25-47); Mean Corpuscular HGB Conc 34 g/dl (31-36); Mean Corpuscular Hemoglobin 31 pg (27-31); Mean Corpuscular Volume 91 fL (80-94); Mean Platelet Volume 6.6 um3 (7.4-10.4); Nucleated Red Blood Cells % 0; Platelet Count 275 10^3/ul (150-450); Red Blood Count 4.51 10^6/ul (4.0-5.4); Red Cell Distribution Width 14 % (10.5-15); White Blood Count 9.8 10^3/ul (3.5-10.8)
[2018-02-14 06:19] LABS: EGFR Non-African American 144.7 (>60)
[2018-02-14] MEDS: Mometasone/Formoter 200/5 MDI INH SCH ×2 (07:36→19:40)
[2018-02-14] MEDS: Tiotropium CAP.INH* CAP.INH/18 MCG (USE ORDER SET !) INH SCH (07:36)
[2018-02-14] MEDS: Omeprazole CAP* 20 MG PO SCH (08:32)
[2018-02-14] MEDS: amLODIPine TAB* 5 MG PO SCH (08:32)
[2018-02-14] MEDS: methylPREDNISolone SOD 40 MG* 1 ML VIAL IV SCH ×2 (08:33→20:35)
[2018-02-14] MEDS: Azithromycin IV(*) 500 MG in NS 0.9% 250 ML* 250 ML IVPB SCH (10:13)
--- NOTE | 2018-02-14 12:33 | PN ---
Subjective Date of Service: 02/14/18 Interval History: Overall feeling breathing is better. Nasal congestion resolved. Afebrile. worried about his insurance covering his medications. had BM Objective Active Medications: Acetaminophen (Tylenol Tab*) 650 mg PO Q6H PRN PRN Reason: FEVER/PAIN Last Admin: 02/13/18 20:31 Dose: 650 mg Albuterol/Ipratropium (Duoneb (Albuterol 2.5 Mg/Ipratropium 0.5 Mg)) 1 neb INH Q4H PRN PRN Reason: SOB/WHEEZING Amlodipine Besylate (Norvasc Tab*) 10 mg PO DAILY [facility] Last Admin: 02/14/18 08:32 Dose: 10 mg Baclofen (Lioresal Tab*) 5 mg PO BID PRN PRN Reason: SPASMS Gabapentin (Neurontin Cap(*)) 300 mg PO 1930 [facility] Last Admin: 02/13/18 20:09 Dose: 300 mg Heparin Sodium (Porcine) (Heparin Vial(*)) 5,000 units SUBCUT Q8HR [facility] Last Admin: 02/14/18 05:50 Dose: 5,000 units Azithromycin 500 mg/ Sodium (Chloride) 250 mls @ 250 mls/hr IVPB Q24H [facility] Last Admin: 02/14/18 10:13 Dose: 250 mls/hr Levalbuterol HCl (Xopenex 1.25 Mg/0.5 Ml Neb.Wendy*) 1.25 mg INH Q2H PRN PRN Reason: DYSPNEA Last Admin: 02/11/18 09:11 Dose: 1.25 mg Methylprednisolone Sodium Succinate (Solu-Medrol 40 Mg) 40 mg IV Q12H [facility] Last Admin: 02/14/18 08:33 Dose: 40 mg Mometasone Furoate/Formoterol Fumar (Dulera 200/5 Mdi*) 2 puff INH BID [facility] Last Admin: 02/14/18 07:36 Dose: 2 puff Nortriptyline HCl (Pamelor Cap*) 10 mg PO BEDTIME [facility] Last Admin: 02/13/18 20:15 Dose: 10 mg Omeprazole (Prilosec Cap*) 40 mg PO DAILY@0730 [facility] Last Admin: 02/14/18 08:32 Dose: 40 mg Oxycodone HCl (Roxycodone Tab*) 5 mg PO BID PRN PRN Reason: HEADACHE Last Admin: 02/13/18 03:30 Dose: 5 mg Polyvinyl Alcohol (Polyvinyl Alcohol 1.4% Opth*) 1 drop BOTH EYES Q2H PRN PRN Reason: DRY EYE Last Admin: 02/12/18 21:36 Dose: 1 drop Tiotropium [place] (Spiriva Cap.Inh*) 1 cap INH DAILY [facility] Last Admin: 02/14/18 07:36 Dose: 1 cap.inh Vital Signs - 8 hr 02/14/18 02/14/18 02/14/18 07:35 07:38 08:00 Temperature 98.0 F Pulse Rate 88 88 Respiratory 20 18 18 Rate Blood Pressure 120/60 (mmHg) O2 Sat by Pulse 100 99 Oximetry Oxygen Devices in Use Now: Nasal Cannula, High Flow Nasal Cannula Appearance: NAD, sitting in chair. Eyes: No Scleral Icterus, PERRLA Ears/Nose/Mouth/Throat: NL Teeth, Lips, Gums, Mucous Membranes Moist Neck: NL Appearance and Movements; NL JVP Respiratory: Symmetrical Chest Expansion and Respiratory Effort, - - distant lung sounds bilaterally, no wheezing or rhonchi. Cardiovascular: NL Sounds; No Murmurs; No JVD, RRR Abdominal: NL Sounds; No Tenderness; No Distention, No Hepatosplenomegaly Extremities: No Edema, No Clubbing, Cyanosis Skin: No Rash or Ulcers, No Nodules or Sclerosis Neurological: Alert and Oriented x 3, NL Sensation, NL Muscle Strength and Tone Nutrition: Taking PO's Result Diagrams: 02/14/18 05:35 02/14/18 05:34 Additional Lab and Data: Laboratory Results - last 24 hr 02/14/18 02/14/18 05:34 05:35 WBC 9.8 RBC 4.51 Hgb 14.1 Hct 41 L MCV 91 MCH 31 MCHC 34 RDW 14 Plt Count 275 MPV 6.6 L Neut % (Auto) 89.4 H Lymph % (Auto) 4.4 L [place] % (Auto) 6.1 Eos % (Auto) 0 Baso % (Auto) 0.1 Absolute Neuts (auto) 8.7 H Absolute Lymphs (auto) 0.4 L Absolute Monos (auto) 0.6 Absolute Eos (auto) 0 Absolute Basos (auto) 0 Absolute Nucleated RBC 0 Nucleated RBC % 0 Sodium 129 L Potassium 4.4 Chloride 94 L Carbon Dioxide 37 H BUN 15 Creatinine 0.56 L Est GFR ( Amer) 186.0 Est GFR (Non-Af Amer) 144.7 BUN/Creatinine Ratio 26.8 H Glucose 117 H Calcium 8.6 Microbiology and Other Data: Microbiology 02/11/18 09:00 Sputum Expectorated Gram Stain - Final 02/11/18 09:00 Sputum Expectorated Sputum Culture - Final Stenotrophomas Maltophilia YEAST Normal Anca 02/11/18 01:10 Blood Venous Aerobic Blood Culture - Preliminary No Growth Day 3 02/11/18 01:10 Blood Venous Anaerobic Blood Culture - Preliminary No Growth Day 3 02/11/18 01:15 Blood Venous Aerobic Blood Culture - Preliminary No Growth Day 3 02/11/18 01:15 Blood Venous Anaerobic Blood Culture - Preliminary No Growth Day 3 02/11/18 00:37 Urine Urine Culture - Final No Growth (<1,000 CFU/mL) Assess/Plan/Problems-Billing Assessment: 67 yo M with h/o severe COPD on 02 at 3l at home, central pontine gliosis noted in 2010 presents with SOB, fever. Suspected COPD exacerbation. - Patient Problems (1) Acute and chronic respiratory failure with hypercapnia Current Visit: No Status: Acute Code(s): J96.22 - ACUTE AND CHRONIC RESPIRATORY FAILURE WITH HYPERCAPNIA SNOMED Code(s): 3471702261965 Comment: Patient has chronic CO2 retention. Continue steroids, inhaled steroids, Given stenotrophomonas on sputum culture will stop Azithro (got 3days x 500mg) and switch to levaquin (vs bactrim vs ceftazadime as other options) Appreciated Dr. Chahal's consultation (2) Aortic root aneurysm Current Visit: Yes Status: Acute Code(s): I71.9 - AORTIC ANEURYSM OF UNSPECIFIED SITE, WITHOUT RUPTURE SNOMED Code(s): 047162671 Comment: at 5 cm, pt was made aware of need for f/u and good HTN control (3) HTN (hypertension) Current Visit: Yes Status: Acute Code(s): I10 - ESSENTIAL (PRIMARY) HYPERTENSION SNOMED Code(s): 12491281 Comment: continue on norvasc 10mg which is new this admission. Hypertensive urgency at home above 200s sbp controlled 120-130s (4) Hyponatremia Current Visit: Yes Status: Acute Code(s): E87.1 - HYPO-OSMOLALITY AND HYPONATREMIA SNOMED Code(s): 81356967 Comment: Na 129 from 134. TSH, Urine Osm, Urine Na, serum Uric Acid. somewhat chronic. (5) COPD exacerbation Current Visit: No Status: Acute Code(s): J44.1 - CHRONIC OBSTRUCTIVE PULMONARY DISEASE W (ACUTE) EXACERBATION SNOMED Code(s): 731600289723105 Comment: plan as above. Patient has no stopped smoking. Continue multi- drug therapy with steroids, bronchodilators, inhaled steroids and supplemental oxygen. (6) DVT prophylaxis Current Visit: No Status: Acute Code(s): GUC9117 - SNOMED Code(s): 746177470 Comment: HSQ (7) Full code status Current Visit: No Status: Acute Code(s): Z78.9 - OTHER SPECIFIED HEALTH STATUS SNOMED Code(s): 871737897 Status and Disposition: medicine inpatient
[2018-02-14] MEDS: Levofloxacin TAB* 750 MG PO SCH (15:07)
[2018-02-14] MEDS: Artificial Tears* 15 ML BTL BOTH EYES PRN (19:00)
[2018-02-14] MEDS: Gabapentin CAP(*) 300 MG PO SCH (20:32)
[2018-02-14] MEDS: Nortriptyline CAP* 10 MG PO SCH (20:35)
[2018-02-14] MEDS: Acetaminophen TAB* 325 MG PO PRN (23:53)
[2018-02-15] MEDS: Omeprazole CAP* 20 MG PO SCH (05:34)
[2018-02-15] MEDS: Heparin VIAL(*) 5000 UNITS/ML VIAL (FIVE THOUSAND) SUBCUT SCH ×2 (05:36→14:35)
[2018-02-15 06:24] LABS: Uric Acid 1.9 mg/dL (4.4-7.6)
[2018-02-15 07:49] LABS: EGFR Non-African American 126.3 (>60)
[2018-02-15] MEDS: Tiotropium CAP.INH* CAP.INH/18 MCG (USE ORDER SET !) INH SCH (08:38)
[2018-02-15] MEDS: Mometasone/Formoter 200/5 MDI INH SCH (08:39)
[2018-02-15] MEDS: amLODIPine TAB* 5 MG PO SCH (09:29)
[2018-02-15] MEDS: Levofloxacin TAB* 750 MG PO SCH (09:29)
[2018-02-15] MEDS: methylPREDNISolone SOD 40 MG* 1 ML VIAL IV SCH (09:30)
[2018-02-15 15:37] VITALS: BP 147/71
--- NOTE | 2018-02-15 16:54 | PN ---
Progress Note - Progress Note Date of Service: 02/15/18 - Pulm f/u note Note: Pt seen and examined at bedside. Pt reports improvement in SOB, not having signficant cough or sputum. Has not been able to ambulate much Active Medications Generic Name Dose Route Start Last Admin Trade Name Freq PRN Reason Stop Dose Admin Acetaminophen 650 mg 02/11/18 02:41 02/14/18 23:53 Tylenol Tab* PO 650 mg Q6H PRN Administration FEVER/PAIN Albuterol/Ipratropium 1 neb 02/11/18 09:03 Duoneb (Albuterol 2.5 Mg/Ipratropium 0.5 Mg) INH Q4H PRN SOB/WHEEZING Amlodipine Besylate 10 mg 02/11/18 15:00 02/15/18 09:29 Norvasc Tab* PO 10 mg DAILY TERRANCE Administration Baclofen 5 mg 02/11/18 05:56 Lioresal Tab* PO BID PRN SPASMS Gabapentin 300 mg 02/11/18 19:30 02/14/18 20:32 Neurontin Cap(*) PO 300 mg 1930 TERRANCE Administration Heparin Sodium (Porcine) 5,000 units 02/11/18 22:00 02/15/18 14:35 Heparin Vial(*) SUBCUT 5,000 units Q8HR TERRANCE Administration Levalbuterol HCl 1.25 mg 02/11/18 07:46 02/11/18 09:11 Xopenex 1.25 Mg/0.5 Ml Neb.Wendy* INH 1.25 mg Q2H PRN Administration DYSPNEA Levofloxacin 750 mg 02/14/18 13:00 02/15/18 09:29 Levaquin Tab* PO 750 mg DAILY TERRANCE Administration Methylprednisolone Sodium Succinate 40 mg 02/12/18 21:00 02/15/18 09:30 Solu-Medrol 40 Mg IV 40 mg Q12H TERRANCE Administration Mometasone Furoate/Formoterol Fumar 2 puff 02/11/18 09:00 02/15/18 08:39 Dulera 200/5 Mdi* INH 2 puff BID TERRANCE Administration Nortriptyline HCl 10 mg 02/11/18 21:00 02/14/18 20:35 Pamelor Cap* PO 10 mg BEDTIME TERRANCE Administration Omeprazole 40 mg 02/11/18 07:30 02/15/18 05:34 Prilosec Cap* PO 40 mg DAILY@0730 TERRANCE Administration Oxycodone HCl 5 mg 02/11/18 05:56 02/13/18 03:30 Roxycodone Tab* PO 5 mg BID PRN Administration HEADACHE Polyvinyl Alcohol 1 drop 02/12/18 18:33 02/14/18 19:00 Polyvinyl Alcohol 1.4% Opth* BOTH EYES 1 drop Q2H PRN Administration DRY EYE Tiotropium [employer] 1 cap 02/11/18 09:00 02/15/18 08:38 Spiriva Cap.Inh* INH 1 cap.inh DAILY TERRANCE Administration Vital Signs Temp Pulse Resp BP Pulse Ox 98.2 F 28 24 147/71 90 02/15/18 15:14 02/15/18 15:14 02/15/18 15:14 02/15/18 15:14 02/15/18 15:14 O/E: Pt in NAD HEENT: PERRLA, No JVD Lungs: Diminished air entry b/l, scaterred wheeze + CVS: S1, S2+ Abd: Soft, BS+ Ext: Normal ROM Neuro: No focal defecits Skin: No rash or bruise Laboratory Results - last 24 hr 02/14/18 02/14/18 02/15/18 19:50 19:50 05:39 Sodium 132 L Potassium 4.9 Chloride 93 L Carbon Dioxide 34 H Anion Gap 5 BUN 16 Creatinine 0.63 L Est GFR ( Amer) 162.4 Est GFR (Non-Af Amer) 126.3 BUN/Creatinine Ratio 25.4 H Glucose 120 H Uric Acid 1.9 L Calcium 8.9 TSH 0.69 Urine Osmolality 325 Ur Random Sodium 55 I/R: 67 y o m with significant smoking history, quit Aug 2017, Aortic root dilation, severe COPD/emphysema, O2 dependant. Pt was admitted for worsening SOB , being treated for acute COPD exacerbation Improved signficantly since admission, has CHERRY and chronic cough at baseline CT chest with evidence of severe centrilobar emphysematous changes Hypoxia requiring O2 supplementation Change to prednisone with plan for slow taper over 2 weeks Will c/w nebs at home Not seeing benefit with Incruse, will try Anoro, if not helpful, will c/w Spiriva supplies from office Spiriva is effective however insurance doesnot cover PT/OT as out pt Will refer for pulm rehab with Chelsey Hammond pCO2 elevated significantly, will benefit from Trilogy at home Will refer for lung transplant as out pt Will need PFTs as out pt Above was discussed in detail with pt and Dr Luciano
--- NOTE | 2018-02-16 04:05 | DS ---
DISCHARGE SUMMARY: DATE OF ADMISSION: 02/11/18 DATE OF DISCHARGE: 02/15/18 ADMITTING PROVIDER: Clarence Wheatley MD ATTENDING PHYSICIAN ON DISCHARGE: Des Luciano MD PRIMARY CARE PROVIDER: Johnson Yoo NP CHIEF COMPLAINT: Shortness of breath. PRINCIPAL DIAGNOSES: 1. Chronic obstructive pulmonary disease exacerbation and Stenotrophomonas maltophilia pneumonia. 2. Chronic hypoxic respiratory failure. HISTORY OF PRESENT ILLNESS: Wojciech Chopra is a 67-year-old male former smoker, quit in August 2017 with history of chronic hypoxic respiratory failure, COPD , benign pontine lesion. He presented with worsening shortness of breath, cough , congestion, nausea without emesis, subjective fevers and chills, sweats upper abdominal discomfort 02/25. He was hypoxic to the low 80s on room air. He required Vapotherm on admission, submitted for COPD/pneumonia. Initially given Levaquin, transitioned to ceftriaxone and azithromycin, then switched back to Levaquin once Stenotrophomonas maltophilia was obtained on sputum culture. The patient initially had a leukocytosis of 12.8, had an ABG on admission, pH 7.3, PCO2 78, PO2 240, bicarb of 33.5. This was on Vapotherm 100 % FiO2. BNP of 122, sodium of 128. He had negative blood cultures x4. His oxygen requirements were gradually weaning down. He was seen by Dr. Sapna Torres in consult who is recommending given his history of troubles paying for his medications given his insurance ([employer] with a 30% co-pay), he will be discharged with Xopenex and ipratropium nebulizers. We also gave him samples of Spiriva, Anoro Ellipta as well as a prescription for Anoro Ellipta. He had an echocardiogram, which showed suggestive of diastolic dysfunction with preserved ejection fraction. It was a technically limited study due to his COPD , smoking with dilation of the aortic root 4.7 to 5.0 cm and this will need to be followed up as an outpatient. He was treated with Solu-Medrol initially at 125 mg and then transitioned to 40 mg q.12, then discharged with a prednisone taper. He had total of 3 days of azithromycin [address] Torres is recommending referral for lung transplant as an outpatient along with repeat PFTs and potentially a Trilogy machine. He was inquiring about getting a home oxygen concentrator though Medicare requires 60 months of continuous oxygen use prior to this. He is currently at 46 months. DISCHARGE MEDICATIONS: Include: 1. Acetaminophen 650 mg p.o. q.6 hours p.r.n. 2. Amlodipine 10 mg p.o. daily (new). 3. Baclofen 5 mg p.o. b.i.d. 4. Benzonatate 100 mg p.o. q.4 hours p.r.n. 5. Fioricet 1 tab p.o. b.i.d. 6. Gabapentin 300 mg daily. 7. Ibuprofen 600 mg p.o. b.i.d. 8. Ipratropium 0.5 mg inhaled q.4 hours p.r.n. (new). 9. Levalbuterol (Xopenex) 1.25 mg inhaled q.2 hours p.r.n. (new). 10. Levaquin 750 mg p.o. daily for 4 more days (new). 11. Nortriptyline 10 mg p.o. q.h.s. 12. Omeprazole 40 mg p.o. daily. 13. Oxycodone 5 mg p.o. b.i.d. 14. Prednisone 40 mg x4 days followed by 20 mg x4 days (new). 15. Anoro Ellipta inhaled daily (new). Also given sample through Dr. Torres's office. DISCHARGE DIET: Unrestricted. ACTIVITY LEVEL: No restrictions. FOLLOWUP: Please follow up with nurse practitioner Johnson Yoo on 02/23/[address] Sapna Torres on 02/18/18. TIME SPENT: Time spent on discharge 40 minutes. [id number]/[facility] #: [id number]
== END 2018-02-15 17:14 | disposition home or self-care (01) | DRG 177 ==
LOC: ED 20:52 → MEDTELE 02-11 02:40
PROVIDERS: ADMIT Hospitalist; ATTEND Internal Medicine
DX: J15.8 Pneumonia due to other specified bacteria (principal); J96.22 Acute and chronic respiratory failure with hypercapnia; J44.1 Chronic obstructive pulmonary disease with (acute) exacerbation; J96.11 Chronic respiratory failure with hypoxia; E87.2 Acidosis; E87.1 Hypo-osmolality and hyponatremia; Q25.43 Congenital aneurysm of aorta; I11.9 Hypertensive heart disease without heart failure; D33.1 Benign neoplasm of brain, infratentorial; J20.9 Acute bronchitis, unspecified; K21.9 Gastro-esophageal reflux disease without esophagitis; I25.10 Atherosclerotic heart disease of native coronary artery without angina pectoris; Z87.891 Personal history of nicotine dependence; Z79.1 Long term (current) use of non-steroidal anti-inflammatories (NSAID); Z79.891 Long term (current) use of opiate analgesic; Z79.899 Other long term (current) drug therapy; Z88.1 Allergy status to other antibiotic agents; Z88.8 Allergy status to other drugs, medicaments and biological substances; Z82.49 Family history of ischemic heart disease and other diseases of the circulatory system; Z80.0 Family history of malignant neoplasm of digestive organs; Z80.7 Family history of other malignant neoplasms of lymphoid, hematopoietic and related tissues; I25.2 Old myocardial infarction
CPT/HCPCS: 36415; 36600; 71045; 71275; 80048; 80053; 81003; 81015; 82803; 83605; 83880; 83935; 84300; 84443; 84484; 84550; 85025; 85027; 85379; 85610; 86140; 87040; 87070; 87077; 87086; 87186; 87205; 93005; 93306; 94640; 94760; 99291; A9270-GY; C8929; G8979-GP-CH; G8980-GP-CH; J0360; J0456; J1644; J2920; J2930; J3475

== ENCOUNTER 2018-04-26 14:12 | Observation (INO) | payer MEDICARE ==
[2018-04-26] MEDS ORDERED: Famotidine IV* 10 MG/ML 2 ML (20 mg) IV ONE (14:53)
--- NOTE | 2018-04-26 15:10 | ED ---
Throat Pain/Nasal Congestion - HPI Summary HPI Summary: Patient is a 68-year-old male with a history of obesity, COPD, chronic sinusitis presenting to the ED with chief complaint of concern over sepsis, worsening sinus infection, abdominal pain, hypoxemia. He was seen by Dr. Fiore this afternoon who recommended he have labs obtained. He presents to the ED due to her worsening concern and does not want to wait for his follow-up appointment with Dr. Fiore. Symptoms include anorexia, worsening shortness of breath, cough with sputum production, lower bilateral abdominal pain and sinus pressure with rhinorrhea. He has been placed on doxycycline by Dr. Fiore was recently discontinued this medication as this could be a cause of his GI upset. Denies any nausea or vomiting. Denies any constipation or diarrhea. Denies any fevers, however endorses some intermittent sweats and chills. is at bedside and concerned he may have a "blood infection." She would like him to be admitted. Vital signs on arrival R 67.8, 94 percent on 3 L , 147/70, respirations 20, heart rate 69. He remains on 3 L at home at baseline. - History of Current Complaint Chief Complaint: EDGeneral Time Seen by Provider: 04/26/18 14:43 Hx Obtained From: Patient, Family/Nursery Nurse Onset/Duration: Gradual Onset Severity: Moderate Associated Signs And Symptoms: Positive: Sinus Discomfort, Nasal Discharge Cough: Productive Related History: Smoking - hx of - Allergies/Home Medications Allergies/Adverse Reactions: Allergies Allergy/AdvReac Type Severity Reaction Status Date / Time meperidine [From Demerol] Allergy Intermediate Hallucinati Verified 04/26/18 14: 17 ons warfarin Allergy Intermediate Unknown Verified 04/26/18 14:17 Reaction Details cefuroxime [From Ceftin] Allergy Difficulty Verified 04/26/18 14:17 Breathing amoxicillin [From Augmentin] AdvReac GI Upset Verified 04/26/18 14:17 clavulanic acid AdvReac GI Upset Verified 04/26/18 14:17 [From Augmentin] Home Medications: Home Medications Albuterol HFA INHALER* [Ventolin HFA Inhaler*] 1 puff INH Q6H PRN 04/26/18 [ History Confirmed 04/26/18] DOXYcycline CAP(*) [DOXYcycline 100MG CAP(*)] 100 mg PO BID 04/26/18 [History Confirmed 04/26/18] Gabapentin CAP(*) [Neurontin 300 CAP(*)] 300 mg PO QPM 04/26/18 [History Confirmed 04/26/18] Ibuprofen TAB* [Motrin TAB* 600 MG] 600 mg PO BID PRN 04/26/18 [History Confirmed 04/26/18] Ranitidine TAB (NF) [Zantac TAB (NF)] 150 mg PO BID 04/26/18 [History Confirmed 04/26/18] oxyCODONE TAB* [Roxycodone TAB 5 mg*] 5 mg PO BID PRN 04/26/18 [History Confirmed 04/26/18] PMH/Surg Hx/FS Hx/Imm Hx Previously Healthy: Yes Endocrine/Hematology History: Denies: Hx Diabetes, Hx Thyroid Disease Cardiovascular History: Denies: Hx Hypertension, Hx Pacemaker/ICD Respiratory History: Reports: Hx Chronic Obstructive Pulmonary Disease (COPD), Other Respiratory Problems/Disorders Denies: Hx Asthma GI History: Reports: Hx Gastroesophageal Reflux Disease - r/t ibuprofen usage Denies: Hx Ulcer History: Denies: Hx Renal Disease Sensory History: Reports: Hx Contacts or Glasses Denies: Hx Cataracts, Hx Hearing Aid Opthamlomology History: Reports: Hx Contacts or Glasses Denies: Hx Cataracts Neurological History: Reports: Hx Headaches - pontine lesion 2006 Psychiatric History: Denies: Hx Panic Disorder - Cancer History Hx Chemotherapy: No - Surgical History Surgery Procedure, Year, and Place: APPENDECTOMY Hx Anesthesia Reactions: No - Immunization History Hx Pertussis Vaccination: No Immunizations Up to Date: Unable to Obtain/Confirm Infectious Disease History: No Infectious Disease History: Denies: Hx Clostridium Difficile, Hx Hepatitis, Hx Human Immunodeficiency Virus (HIV), Hx of Known/Suspected MRSA, Hx Shingles, Hx Tuberculosis, Hx Known/ Suspected VRE, Hx Known/Suspected VRSA, History Other Infectious Disease, Traveled Outside the [place] in Last 30 Days - Family History Known Family History: Positive: Other - brother: colon CA - Social History Occupation: Unemployed, Retired Lives: With Family Alcohol Use: None Hx Substance Use: No Substance Use Type: Reports: None Hx Tobacco Use: No Smoking Status (MU): Former Smoker Type: Cigarettes Amount Used/How Often: smoked for 53 years 1-1.5 ppd Review of Systems Positive: Chills, Fatigue, Skin Diaphoresis. Negative: Fever Negative: Blurred Vision, Diplopia Positive: Nasal Discharge. Negative: Epistaxis, Dental Pain Negative: Palpitations, Chest Pain Positive: Shortness Of Breath, Cough Positive: Abdominal Pain. Negative: Vomiting, Diarrhea, Nausea Genitourinary: Negative Positive: no symptoms reported, see HPI Negative: Arthralgia, Myalgia Skin: Negative Positive: Weakness Psychological: Normal All Other Systems Reviewed And Are Negative: Yes Physical Exam Triage Information Reviewed: Yes Vital Signs On Initial Exam: Initial Vitals Temp Pulse Resp BP Pulse Ox 97.8 F 69 20 147/70 94 04/26/18 14:13 04/26/18 14:13 04/26/18 14:13 04/26/18 14:13 04/26/18 14:13 Vital Signs Reviewed: Yes Appearance: Positive: Well-Nourished Skin: Positive: Skin Color Reflects Adequate Perfusion Head/Face: Positive: Normal Head/Face Inspection Eyes: Positive: EOMI, CORTEZ, Conjunctiva Clear ENT: Positive: Nasal congestion, Nasal drainage, Dental tenderness, Sinus tenderness, Other - epistaxis intermittently. Negative: Tonsillar swelling, Tonsillar exudate Neck: Positive: Supple, Nontender, No Lymphadenopathy Respiratory/Lung Sounds: Positive: Clear to Auscultation, Breath Sounds Present Cardiovascular: Positive: RRR, Pulses are Symmetrical in both Upper and Lower Extremities Musculoskeletal: Positive: Normal, Strength/ROM Intact Neurological: Positive: Sensory/Motor Intact, Alert, Oriented to Person Place, Time, Speech Normal Psychiatric: Positive: Normal, Affect/Mood Appropriate AVPU Assessment: Alert Diagnostics - Vital Signs Vital Signs Temp Pulse Resp BP Pulse Ox 04/26/18 14:13 97.8 F 69 20 147/70 94 - Laboratory Result Diagrams: 04/26/18 15:16 04/26/18 15:16 Lab Statement: Any lab studies that have been ordered have been reviewed, and results considered in the medical decision making process. - CT No standard instances CT Interpretation: Positive (See Comments) CT Interpretation Completed By: Radiologist - IMPRESSION: THERE IS OPACIFICATION OF THE SPHENOID SINUS WITH EROSIVE CHANGES AND SOFT TISSUE DENSITY OF THE FLOOR OF THE SPHENOID SINUS AND POSTERIOR NASOPHARYNX. WHILE THIS MAY REPRESENT A LOCALLY AGGRESSIVE CHRONIC SINUSITIS, INCLUDING FUNGAL SINUSITIS, NEOPLASM IS ALSO WITHIN THE DIFFERENTIAL. RECOMMEND CONSIDERATION OF CORRELATION WITH DIRECT VISUALIZATION AND TISSUE SAMPLING. EENT Course/Dx - Course Course Of Treatment: During the course treatment, the patient's evaluated for chronic sinusitis infection versus other etiology for his multiple complaints. Blood cultures obtained and are pending results. WBC, CT sinuses without contrast obtained. Continues to have epistaxis while in the ED. WBC 18.3. Platelet count 573. Elevated CRP at 40.59. Elevated troponin at 0.04. X-ray obtained which is WNL. Spoke with Dr. Fiore at 2:45 PM to make aware of patient in the ED. Discussed case again at 4:30p. He will be admitted to hospitalist service for IV abx, ENT evaluation and weakness. Zosyn ordered. He appears to be allergic to amoxicillin from Augmentin. Allergic reaction is GI upset. We will attempt Zosyn at this time and change if necessary. Toradol 30 mg IV given for headache. - Diagnoses Provider Diagnoses: Ethmoid sinusitis, Elevated white blood cell count, Weakness, Epistaxis Discharge - Sign-Out/Discharge Documenting (check all that apply): Discharge/Admit/Transfer Signing out patient TO: Isha Mejia - ADMIT TO SERVICE - Discharge Plan Condition: Stable Disposition: ADMITTED TO [facility] Referrals: Johnson Yoo, SEAN [Primary Care Provider] - - Billing Disposition and Condition Condition: STABLE Disposition: Admitted to [facility]
[2018-04-26 15:24] LABS: ABS Basophils 0.1 10^3/ul (0-0.2); ABS Eosinophils 0.2 10^3/ul (0-0.6); ABS Lymphocytes 1.4 10^3/ul (1.0-4.8); ABS Monocytes 1.3 10^3/ul (0-0.8); ABS Neutrophils 15.3 10^3/ul (1.5-7.7); ABS Nucleated RBC 0 10^3/ul; Eosinophil % 1.3 % (0-6); Hematocrit 45 % (42-52); Hemoglobin 15.3 g/dl (14.0-18.0); Lymphocyte % 7.5 % (25-47); Mean Corpuscular HGB Conc 34 g/dl (31-36); Mean Corpuscular Hemoglobin 31 pg (27-31); Mean Corpuscular Volume 91 fL (80-94); Mean Platelet Volume 6.6 um3 (7.4-10.4); Nucleated Red Blood Cells % 0; Platelet Count 573 10^3/ul (150-450); Red Blood Count 4.96 10^6/ul (4.00-5.40); Red Cell Distribution Width 14 % (10.5-15); White Blood Count 18.3 10^3/ul (3.5-10.8)
[2018-04-26] MEDS ORDERED: NS 0.9% 1000 ML* 1,000 ML IV ONE (15:33)
[2018-04-26 15:34] LABS: INR 1.05 (0.77-1.02)
[2018-04-26 15:42] LABS: EGFR Non-African American 119.3 (>60)
--- NOTE | 2018-04-26 15:43 | RAD ---
CLINICAL HISTORY: chronic sinusitis COMPARISON: January 29, 2012 TECHNIQUE: Contiguous axial CT images were obtained through the paranasal sinuses, without intravenous contrast, with coronal and sagittal multiplanar reformations. FINDINGS: NASAL CAVITY: Septum: The nasal septum is deviated to the left. Right: Clear Left: Clear SINUSES AND DRAINAGE PATHWAYS: Frontal sinuses: Unremarkable. Maxillary sinuses: Unremarkable Ethmoid sinuses: There is opacification of the posterior ethmoid air cells. Ostiomeatal complex: Patent without obstruction or occlusion. Sphenoid sinuses: There is opacification of the sphenoid sinus, with erosive changes noted to the medial sphenoid bones bilaterally with disruption of the floor of the sphenoid sinus. There is polypoid soft tissue density along the floor of the sphenoid sinus extending to the posterior nasopharynx. There is no appreciable extension into the calvarium. Anatomic variations: No significant variations. Orbits: Unremarkable. Anterior cranial fossa: Normal. Other findings: None. IMPRESSION: THERE IS OPACIFICATION OF THE SPHENOID SINUS WITH EROSIVE CHANGES AND SOFT TISSUE DENSITY OF THE FLOOR OF THE SPHENOID SINUS AND POSTERIOR NASOPHARYNX. WHILE THIS MAY REPRESENT A LOCALLY AGGRESSIVE CHRONIC SINUSITIS, INCLUDING FUNGAL SINUSITIS, NEOPLASM IS ALSO WITHIN THE DIFFERENTIAL. RECOMMEND CONSIDERATION OF CORRELATION WITH DIRECT VISUALIZATION AND TISSUE SAMPLING.
--- NOTE | 2018-04-26 15:55 | RAD ---
INDICATION: Cough COMPARISON: March 26, 2018 TECHNIQUE: PA and lateral dual-energy views were obtained. FINDINGS: Bones/Soft Tissues: There are no acute bony findings. There is mild kyphoscoliosis Cardiomediastinal: The cardiomediastinal silhouette is normal. Lungs: There is hyperinflation. There are no focal infiltrates. Pleura: There are no pleural effusions. Other: None IMPRESSION: NO ACTIVE DISEASE.
[2018-04-26] MEDS ORDERED: Ketorolac INJ* 30 MG/ML 1 ML VIAL IV PUSH ONE (16:25)
[2018-04-26] MEDS ORDERED: Piperacillin/Tazobac ADVAN(*) 3.375 GM in NS 0.9% 100 ML* 100 ML IVPB ONE (16:51)
[2018-04-26] MEDS ORDERED: Piperacillin/Tazobac (*) 3.375 GM BAG ONE (16:57)
[2018-04-26] MEDS ORDERED: Al Hydrox/Mg Hydrox/Simet LIQ* 30 ML UDC PO PRN (17:18)
[2018-04-26] MEDS ORDERED: Ondansetron INJ* 2 MG/ML VIAL IV PRN (17:18)
[2018-04-26] MEDS ORDERED: Magnesium Hydroxide LIQ* 30 ML UDC PO PRN (17:18)
[2018-04-26] MEDS ORDERED: Baclofen TAB* 10 MG PO PRN (17:24)
[2018-04-26] MEDS ORDERED: Albuterol HFA INHALER* 8 gm MDI INH PRN (17:24)
[2018-04-26] MEDS ORDERED: Ipratropium 0.5MG/2.5ML NEB* 0.5 MG/2.5 ML NEB.SOLN INH PRN (17:24)
[2018-04-26] MEDS: Piperacillin/Tazobac ADVAN(*) 3.375 GM in NS 0.9% 100 ML* 100 ML IVPB SCH (20:45)
[2018-04-26] MEDS: Gabapentin CAP(*) 300 MG PO SCH (20:47)
[2018-04-26] MEDS: Famotidine TAB* 20 MG PO SCH (20:47)
[2018-04-26] MEDS: Nortriptyline CAP* 10 MG PO SCH (20:47)
[2018-04-26] MEDS: oxyCODONE/Acetamin 5/325 MG* TAB PO PRN (20:47)
[2018-04-26] MEDS: Albuterol 2.5 MG/3 ML NEB.SOL* (0.083%) INH PRN (20:51)
[2018-04-26 21:16] LABS: Urine Appearance Clear; Urine Blood Negative (Negative); Urine Color Straw; Urine Ketones Negative (Negative); Urine Protein Negative (Negative); Urine Specific Gravity 1.006 (1.010-1.030); Urine Urobilinogen Negative (Negative)
--- NOTE | 2018-04-26 21:34 | HP ---
CC: Dr. Green * ADMISSION HISTORY AND PHYSICAL: DATE OF ADMISSION: 04/26/18 ATTENDING HOSPITALIST: Dr. Isha Durna.* (DICTATED BY MISHA FAN) PRIMARY CARE PROVIDER: Dr. Green. CHIEF COMPLAINT: 1. Generalized weakness. 2. Chronic sinus problem. 3. Occasional epistaxis. HISTORY OF PRESENT ILLNESS: Mr. Chopra is a 68-year-old gentleman who has past medical history significant for COPD with occasional exacerbation who presented to the emergency room earlier today with complaints of generalized weakness and worsening chronic sinus problem for the past 2 months. The patient described chronic congestion, headaches, and occasional epistaxis that was evaluated 2 months ago and was diagnosed with sinusitis. He was seen by ENT [facility] WINDER. The patient thinks it was Dr. Martinez who prescribed some Augmentin for him initially. The patient could not tolerate his Augmentin and then decided to stop taking it and continued to struggle with occasional symptoms of sinusitis including weakness, stuffiness, headache, and occasional epistaxis. He was seen by Dr. Cook on a couple of occasions and was put on doxycycline for the past couple of weeks with no significant improvement. Given his consistent symptoms as well as the occasional feeling of weakness and dizziness upon standing up, the patient presented to the emergency room for further evaluation. He had laboratory workup that revealed leukocytosis with white count of 18,000. The patient admits to occasional low grade fever and chills, but denied any chest pain, changes in bowel habit, or any other associated symptoms. He denied any headache, double vision, or syncopal episodes. He had a CT scan of the sinuses that revealed sphenoid sinus with erosive changes as well as soft tissue density that could be related to chronic aggressive sinusitis versus neoplasm recommending further evaluation. Given his ongoing symptoms for the past 2 months as well as a finding of the CT scan, we were asked to see the patient to consider admission for antibiotics as well as to obtain an ENT consultation for a possible intervention. PAST MEDICAL HISTORY: Significant for COPD as well as a pontine brain lesion that has been worked out in the past. GERD and hypertension. PAST SURGICAL HISTORY: Significant for appendectomy. CURRENT MEDICATIONS: His medications at home include: 1. Albuterol metered dose inhaler 1 puff q.6 hours as needed for shortness of breath. 2. Baclofen 5 mg p.o. b.i.d. 3. Fioricet 1 tablet p.o. b.i.d. p.r.n. for headache or pain. 4. Doxycycline 100 mg p.o. b.i.d. 5. Neurontin 300 mg p.o. q.p.m. 6. Motrin 600 mg p.o. b.i.d. 7. Nortriptyline 10 mg p.o. q.h.s. 8. Roxicodone 5 mg p.o. b.i.d. 9. Zantac 150 mg p.o. b.i.d. 10. Tylenol 650 mg p.o. q.6 hours as needed for pain or fever. 11. Norvasc 10 mg p.o. daily. 12. Atrovent inhaled nebulizer 0.5 mg/2.5 mL q.4 hours as needed for shortness of breath. 13. Omeprazole 40 mg p.o. daily. ALLERGIES: Multiple including MEPERIDINE, WARFARIN, CEFUROXIME, and also reports nausea and vomiting with AUGMENTIN. FAMILY HISTORY: Significant for history of MO in his father. He also had a brother, who has cancer of unknown type. Sister with colon cancer and another brother who had lymphoma and mother who had brain tumor. SOCIAL HISTORY: The patient is a former smoker, who quit smoking last fall. He used to smoke 1 pack per day for 50 years. He drinks occasionally. He is and his , Raz Chopra, will be the surrogate decision maker. He wishes to be a full code. REVIEW OF SYSTEMS: See HPI. Otherwise, 14-point review of systems was evaluated and essentially negative. PHYSICAL EXAMINATION GENERAL: He is a 68-year-old gentleman, appears comfortable, and in no acute distress or discomfort at the time of admission. VITAL SIGNS: Revealed temperature of 97.8, pulse of 69, respirations of 20, O2 sat of 98% on room air, blood pressure of 147/70. HEENT: Head is normocephalic, atraumatic. Sclerae anicteric. PERRLA. EOMs intact. Oropharynx is pink and moist. NECK: Supple. Trachea midline. No cervical adenopathy, thyromegaly, or JVD. LUNGS: Clear to auscultation bilaterally. HEART: Regular rate and rhythm. Normal S1 and S2 without rubs, murmurs, or gallops. BACK: With normal curvature and no CVA tenderness. ABDOMEN: Soft, nontender, nondistended. EXTREMITIES: Without cyanosis, clubbing or edema. NEUROLOGIC: Grossly intact. RECTAL: Exam deferred at this time. DIAGNOSTIC STUDIES/LAB DATA: CBC with white count of 18,000, hemoglobin 15.3, hematocrit of 45, and platelets of 573. His chemistry with sodium of 139, potassium 3.8, chloride of 97, CO2 34, BUN 11 and creatinine of 0.6. His glucose is 115. LFTs essentially within normal limits. C-reactive protein elevated at 40.6. Accessory diagnostic data: CT scan of the sinuses revealed opacification of the sphenoid sinus with erosive changes and soft tissue density at the floor of the sphenoid sinus and posterior nasopharynx that could represent a locally aggressive chronic sinusitis versus neoplasm. ASSESSMENT AND PLAN: A 68-year-old gentleman with past medical history significant for hypertension, gastroesophageal reflux disease, chronic obstructive pulmonary disease with exacerbation who presented to the emergency room with a 2-month history of worsening symptoms of chronic sinusitis with associated weakness. 1. Chronic sinusitis. The patient will be admitted and will be covered with Zosyn for the time being. Dr. Cook has been contacted and he is aware and has recommended ENT consultation for the patient in the past. We will control his occasional epistaxis that appears to be stable at this time. He is advised not to blow his nose or increase the pressure by bending over. I will await tomorrow morning to call ENT office and obtain a consult hopefully with Dr. Martinez since he has seen the patient in the past. 2. Chronic obstructive pulmonary disease. We will continue his nebulizers and he appears to be breathing with no significant effort at this time and maintaining good saturation at room air. 3. History of migraines and headaches. We will continue his nortriptyline and baclofen as needed. 4. DVT prophylaxis: The patient is at moderate risk. Given his occasional epistaxis, we will hold off any heparin for the time being and we will cover him with SCDs. 5. Hypertension. We will continue his home medication. 6. Gastroesophageal reflux disease. We will continue his omeprazole. 7. Code status: He is a full code. TIME SPENT: I spent approximately 60 minutes admitting this patient with greater than 50% was spent taking history and performing physical exam. I have discussed the case with my attending, who agreed to plans. MISHA FAN [id number]/[facility] #: [id number] ROGER
[2018-04-27] MEDS: oxyCODONE/Acetamin 5/325 MG* TAB PO PRN ×2 (01:12→05:22)
[2018-04-27] MEDS ORDERED: Piperacillin/Tazobac ADVAN(*) 3.375 GM in NS 0.9% 100 ML* 100 ML IVPB SCH (06:00)
[2018-04-27 07:49] LABS: Hematocrit 41 % (42-52); Hemoglobin 13.9 g/dl (14.0-18.0); Mean Corpuscular HGB Conc 34 g/dl (31-36); Mean Corpuscular Hemoglobin 31 pg (27-31); Mean Corpuscular Volume 92 fL (80-94); Mean Platelet Volume 6.5 um3 (7.4-10.4); Platelet Count 494 10^3/ul (150-450); Red Blood Count 4.46 10^6/ul (4.00-5.40); Red Cell Distribution Width 14 % (10.5-15); White Blood Count 19.9 10^3/ul (3.5-10.8)
[2018-04-27 08:06] LABS: EGFR Non-African American 133.2 (>60)
[2018-04-27] MEDS: Omeprazole CAP* 20 MG PO SCH (08:25)
[2018-04-27] MEDS: amLODIPine TAB* 5 MG PO SCH (08:38)
[2018-04-27] MEDS: Famotidine TAB* 20 MG PO SCH ×2 (08:39→20:41)
[2018-04-27] MEDS: Piperacillin/Tazobac ADVAN(*) 3.375 GM in NS 0.9% 100 ML* 100 ML IVPB SCH ×2 (08:44→18:13)
[2018-04-27 08:54] LABS: ABS Basophils 0.1 10^3/ul (0-0.2); ABS Eosinophils 0.2 10^3/ul (0-0.6); ABS Lymphocytes 1.2 10^3/ul (1.0-4.8); ABS Monocytes 1.7 10^3/ul (0-0.8); ABS Neutrophils 16.5 10^3/ul (1.5-7.7); ABS Nucleated RBC 0 10^3/ul; Eosinophil % 1.1 % (0-6); Lymphocyte % 6.1 % (25-47); Nucleated Red Blood Cells % 0
[2018-04-27] MEDS: oxyCODONE TAB* 5 MG TAB PO PRN ×2 (10:30→23:14)
--- NOTE | 2018-04-27 13:00 | PN ---
Subjective Date of Service: 04/27/18 Interval History: Pt reports HUERTA today and states this has been his normal chronic headache he has been having for "months". He reports his symptoms initially started around January. He has been tx several times with abx w/o success. He has been using afrin daily w/o relief. No fever or chills. No N/V. Reports he has "felt terrible for months'. Little nasal drainage. Pt reports he feels unsteady on his feet due to "my head feeling terrible". Objective Active Medications: Acetaminophen (Tylenol Tab*) 650 mg PO Q4H PRN PRN Reason: FEVER/PAIN Acetaminophen/Butalbital/Caffeine (Fioricet Tab*) 1 tab PO BID PRN PRN Reason: HEADACHE Al Hydrox/Mg Hydrox/Simethicone (Maalox Plus*) 30 ml PO Q6H PRN PRN Reason: INDIGESTION Albuterol (Ventolin 2.5 Mg/3 Ml Neb.Wendy*) 2.5 mg INH [id number] AWAKE PRN PRN Reason: sob/wheezing Last Admin: 04/26/18 20:51 Dose: 2.5 mg Albuterol (Ventolin Hfa Inhaler*) 1 puff INH Q6H PRN PRN Reason: SHORTNESS OF BREATH Amlodipine Besylate (Norvasc Tab*) 10 mg PO DAILY [facility] Last Admin: 04/27/18 08:38 Dose: 10 mg Baclofen (Lioresal Tab*) 5 mg PO BID PRN PRN Reason: SPASMS Famotidine (Pepcid Tab*) 20 mg PO BID [facility]; Protocol Last Admin: 04/27/18 08:39 Dose: 20 mg Gabapentin (Neurontin Cap(*)) 300 mg PO QPM [facility] Last Admin: 04/26/18 20:47 Dose: 300 mg Piperacillin Sod/Tazobactam (Sod 3.375 gm/ Sodium Chloride) 100 mls @ 25 mls/ hr IVPB Q12H [facility] Last Admin: 04/27/18 08:44 Dose: 25 mls/hr Ipratropium [place] (Atrovent 0.5 Mg Neb.Wendy*) 0.5 mg INH Q4H PRN PRN Reason: SOB/WHEEZING Magnesium Hydroxide (Milk Of Magnesia Liq*) 30 ml PO Q4H PRN PRN Reason: CONSTIPATION Nortriptyline HCl (Pamelor Cap*) 10 mg PO BEDTIME [facility] Last Admin: 04/26/18 20:47 Dose: 10 mg Omeprazole (Prilosec Cap*) 40 mg PO DAILY@0730 [facility] Last Admin: 04/27/18 08:25 Dose: 40 mg Ondansetron HCl (Zofran Inj*) 4 mg IV Q4H PRN PRN Reason: NAUSEA/VOMITING Last Admin: 04/27/18 08:40 Dose: 4 mg Oxycodone HCl (Roxycodone Tab*) 5 mg PO BID PRN PRN Reason: PAIN Last Admin: 04/27/18 10:30 Dose: 5 mg Oxycodone/Acetaminophen (Percocet 5/325 Tab*) 1 tab PO Q4H PRN PRN Reason: Pain Last Admin: 04/27/18 05:22 Dose: 1 tab Vital Signs - 8 hr 04/27/18 04/27/18 04/27/18 05:22 07:42 08:00 Temperature 97.9 F Pulse Rate 78 Respiratory 18 20 12 Rate Blood Pressure 124/64 (mmHg) O2 Sat by Pulse 99 Oximetry 04/27/18 04/27/18 04/27/18 10:30 10:33 11:14 Temperature 97.3 F Pulse Rate 74 Respiratory 13 12 18 Rate Blood Pressure 130/64 (mmHg) O2 Sat by Pulse 96 Oximetry Oxygen Devices in Use Now: Nasal Cannula Appearance: 68 yo male A+Ox3 in NAD Eyes: No Scleral Icterus, PERRLA Ears/Nose/Mouth/Throat: NL Teeth, Lips, Gums, Mucous Membranes Moist, - - sphenoid, fronyal, maxillary sinuses tender - Respiratory: Symmetrical Chest Expansion and Respiratory Effort, Clear to Auscultation Cardiovascular: NL Sounds; No Murmurs; No JVD, RRR, No Edema Abdominal: NL Sounds; No Tenderness; No Distention Lymphatic: No Cervical Adenopathy Extremities: No Edema, No Clubbing, Cyanosis Skin: No Rash or Ulcers, No Nodules or Sclerosis Neurological: Alert and Oriented x 3, NL Sensation, NL Gait, NL Muscle Strength and Tone Lines/Tubes/Other Access: Clean, Dry and Intact Peripheral IV Result Diagrams: 04/27/18 07:38 04/27/18 07:38 Assess/Plan/Problems-Billing Assessment: 68 yo male with hx of chronic sinusitis, COPD, pontine brain lesion , GERD, HTN who presented with c/o generalized weakness and headache, multiple rounds of outpatient antibiotics, found to have erosion and possible mass on sinus CT, - Patient Problems (1) Chronic sinusitis Comment: - Sinus CT showing "Opacification of the sphenoid sinus with erosive changes and soft tissue density of the floor of the sphenoid and posterior nasopharynx while this may represent locally aggressive chronic sinusitis, including fungal , neoplasm is also within the differential". - Appreciate ID consult - continue Zosyn. Plan to send tomorrow on PO most likely - Discussed with ENT - ok to continue IV abx for 24 hours then DC home, will see as an outpt for a scope and biopsy. Recommended Afrin nasal spray daily. (2) COPD (chronic obstructive pulmonary disease) Comment: stable. continue home inhalers (3) HTN (hypertension) Comment: continue norvasc (4) Full code status (5) DVT prophylaxis Comment: HSQ Status and Disposition: Home when medically stable.
[2018-04-27] MEDS: Butalb/Acetamin/Caff TAB* 1 TAB PO PRN ×2 (13:50→20:41)
[2018-04-27] MEDS: Oxymetazoline 0.05% NASAL SPR* 15 ML BTL BOTH NARES SCH (15:41)
[2018-04-27] MEDS: Heparin VIAL(*) 5000 UNITS/ML VIAL (FIVE THOUSAND) SUBCUT SCH ×2 (15:42→20:41)
[2018-04-27] MEDS: Gabapentin CAP(*) 300 MG PO SCH (18:09)
[2018-04-27] MEDS: Acetaminophen TAB* 325 MG PO PRN (18:20)
[2018-04-27] MEDS: Nortriptyline CAP* 10 MG PO SCH (20:41)
[2018-04-27] MEDS ORDERED: Oxymetazoline 0.05% NASAL SPR* 15 ML BTL BOTH NARES SCH (21:00)
--- NOTE | 2018-04-27 21:27 | CONS ---
CONSULTATION REPORT: DATE OF CONSULT: 04/27/18 Consultation for the hospitalist service. BRIEF HISTORY: This 68-year-old gentleman presenting with a 4-week history of persistent worsening facial pain, congestion, and headache. He also has noticed epistaxis and hemoptysis. He was seen in the emergency room. A CT scan showed a midline nasal mass with opacification of the sphenoid sinuses with bony erosion of the septal region. He had had a longstanding history of sinus disease. He was admitted for supposed diagnosis of sinusitis with sepsis. 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 This appears to be possibly a metastatic versus a primary site tumor. He has a longstanding history of smoking. He has also had hemoptysis. The patient requires a biopsy of the nasal cavity. This should be done as an elective operation in the operating room. IMPRESSION: I think that chest CT would be indicated in this gentleman who has hemoptysis, nasal mass, and epistaxis as well. PLAN/RECOMMENDATIONS: We will continue to follow him, eventually he will need an MRI once the biopsy results are available to us. Thanks for allowing me to consult on this patient. [id number]/CPS #: [id number]
[2018-04-28] MEDS: oxyCODONE/Acetamin 5/325 MG* TAB PO PRN ×2 (01:04→08:38)
[2018-04-28] MEDS: Piperacillin/Tazobac ADVAN(*) 3.375 GM in NS 0.9% 100 ML* 100 ML IVPB SCH ×2 (01:17→11:28)
[2018-04-28] MEDS: Butalb/Acetamin/Caff TAB* 1 TAB PO PRN ×2 (04:28→15:51)
[2018-04-28] MEDS: Heparin VIAL(*) 5000 UNITS/ML VIAL (FIVE THOUSAND) SUBCUT SCH ×2 (05:46→14:29)
[2018-04-28 07:05] LABS: ABS Basophils 0.2 10^3/ul (0-0.2); ABS Eosinophils 0.2 10^3/ul (0-0.6); ABS Lymphocytes 1.3 10^3/ul (1.0-4.8); ABS Monocytes 1.3 10^3/ul (0-0.8); ABS Neutrophils 13.7 10^3/ul (1.5-7.7); ABS Nucleated RBC 0 10^3/ul; Eosinophil % 1.4 % (0-6); Hematocrit 41 % (42-52); Hemoglobin 13.8 g/dl (14.0-18.0); Lymphocyte % 7.9 % (25-47); Mean Corpuscular HGB Conc 34 g/dl (31-36); Mean Corpuscular Hemoglobin 31 pg (27-31); Mean Corpuscular Volume 91 fL (80-94); Mean Platelet Volume 6.4 um3 (7.4-10.4); Nucleated Red Blood Cells % 0; Platelet Count 492 10^3/ul (150-450); Red Blood Count 4.51 10^6/ul (4.00-5.40); Red Cell Distribution Width 14 % (10.5-15); White Blood Count 16.7 10^3/ul (3.5-10.8)
[2018-04-28] MEDS: Omeprazole CAP* 20 MG PO SCH (07:21)
[2018-04-28 07:25] LABS: EGFR Non-African American 115.3 (>60)
[2018-04-28] MEDS ORDERED: Iohexol 300* (CONTRAST) 10 ML SDV IV SCH (08:11)
[2018-04-28] MEDS: Famotidine TAB* 20 MG PO SCH (08:38)
[2018-04-28] MEDS: amLODIPine TAB* 5 MG PO SCH (08:39)
[2018-04-28] MEDS: Oxymetazoline 0.05% NASAL SPR* 15 ML BTL BOTH NARES SCH (08:40)
[2018-04-28] MEDS: oxyCODONE TAB* 5 MG TAB PO PRN (11:32)
--- NOTE | 2018-04-28 12:25 | DCNOTE ---
Subjective Date of Service: 04/28/18 Interval History: Pt reports his HUERTA is better controlled this morning. He feels better about the plan. ENT saw him this am and there is concern for possible tumor noted on simus CT, He also reports coughing up streaks of blood the last few months but also reports occasional blood streaks from nose. He denies harsh cough, ocassional sputum production which he states is normal. no fever or chills. Reports good appetite. Feel steady on his feet Agrees with plan for CT chest/abd/pelvis and DC marcus etoday. Plan to f//u with ENT tomorrow. Objective Active Medications: Acetaminophen (Tylenol Tab*) 650 mg PO Q4H PRN PRN Reason: FEVER/PAIN Last Admin: 04/27/18 18:20 Dose: 650 mg Acetaminophen/Butalbital/Caffeine (Fioricet Tab*) 1 tab PO BID PRN PRN Reason: HEADACHE Last Admin: 04/28/18 04:28 Dose: 1 tab Al Hydrox/Mg Hydrox/Simethicone (Maalox Plus*) 30 ml PO Q6H PRN PRN Reason: INDIGESTION Albuterol (Ventolin 2.5 Mg/3 Ml Neb.Wendy*) 2.5 mg INH [id number] AWAKE PRN PRN Reason: sob/wheezing Last Admin: 04/26/18 20:51 Dose: 2.5 mg Albuterol (Ventolin Hfa Inhaler*) 1 puff INH Q6H PRN PRN Reason: SHORTNESS OF BREATH Amlodipine Besylate (Norvasc Tab*) 10 mg PO DAILY [facility] Last Admin: 04/28/18 08:39 Dose: 10 mg Baclofen (Lioresal Tab*) 5 mg PO BID PRN PRN Reason: SPASMS Famotidine (Pepcid Tab*) 20 mg PO BID [facility]; Protocol Last Admin: 04/28/18 08:38 Dose: 20 mg Gabapentin (Neurontin Cap(*)) 300 mg PO QPM [facility] Last Admin: 04/27/18 18:09 Dose: 300 mg Heparin Sodium (Porcine) (Heparin Vial(*)) 5,000 units SUBCUT Q8HR [facility] Last Admin: 04/28/18 05:46 Dose: 5,000 units Piperacillin Sod/Tazobactam (Sod 3.375 gm/ Sodium Chloride) 100 mls @ 25 mls/ hr IVPB Q8H [facility] Last Admin: 04/28/18 11:28 Dose: 25 mls/hr Iohexol (Omnipaque 300* (Contrast)) 80 ml IV ONCE [facility] Stop: 04/30/18 08:10 Last Admin: 04/28/18 10:36 Dose: 80 ml Ipratropium [place] (Atrovent 0.5 Mg Neb.Wendy*) 0.5 mg INH Q4H PRN PRN Reason: SOB/WHEEZING Magnesium Hydroxide (Milk Of Magnesia Liq*) 30 ml PO Q4H PRN PRN Reason: CONSTIPATION Nortriptyline HCl (Pamelor Cap*) 10 mg PO BEDTIME [facility] Last Admin: 04/27/18 20:41 Dose: 10 mg Omeprazole (Prilosec Cap*) 40 mg PO DAILY@0730 [facility] Last Admin: 04/28/18 07:21 Dose: 40 mg Ondansetron HCl (Zofran Inj*) 4 mg IV Q4H PRN PRN Reason: NAUSEA/VOMITING Last Admin: 04/27/18 08:40 Dose: 4 mg Oxycodone HCl (Roxycodone Tab*) 5 mg PO BID PRN PRN Reason: PAIN Last Admin: 04/28/18 11:32 Dose: 5 mg Oxycodone/Acetaminophen (Percocet 5/325 Tab*) 1 tab PO Q4H PRN PRN Reason: Pain Last Admin: 04/28/18 08:38 Dose: 1 tab Oxymetazoline HCl (Afrin 0.05% Nasal Diamond*) 2 spray BOTH NARES DAILY [facility] Last Admin: 04/28/18 08:40 Dose: 2 spray Vital Signs - 8 hr 04/28/18 04/28/18 04/28/18 04:23 04:28 07:08 Temperature 98.0 F Pulse Rate 60 Respiratory 18 20 16 Rate Blood Pressure 145/69 (mmHg) O2 Sat by Pulse 94 Oximetry 04/28/18 04/28/18 04/28/18 07:26 07:41 08:38 Temperature 97.5 F Pulse Rate 88 Respiratory 20 18 Rate Blood Pressure 147/68 (mmHg) O2 Sat by Pulse 98 Oximetry 04/28/18 04/28/18 10:40 11:32 Temperature Pulse Rate Respiratory 18 16 Rate Blood Pressure (mmHg) O2 Sat by Pulse Oximetry Oxygen Devices in Use Now: Nasal Cannula Appearance: 68 yo male sitting up in a chiar in NAD, A+O x3 Eyes: No Scleral Icterus, PERRLA Ears/Nose/Mouth/Throat: - - multiple missing teeth Neck: NL Appearance and Movements; NL JVP Respiratory: Symmetrical Chest Expansion and Respiratory Effort, Clear to Auscultation Cardiovascular: NL Sounds; No Murmurs; No JVD, RRR, No Edema Abdominal: NL Sounds; No Tenderness; No Distention Extremities: No Edema, No Clubbing, Cyanosis Skin: No Rash or Ulcers, No Nodules or Sclerosis Neurological: Alert and Oriented x 3, NL Sensation, NL Muscle Strength and Tone Lines/Tubes/Other Access: Clean, Dry and Intact Peripheral IV Nutrition: Taking PO's Result Diagrams: 04/28/18 06:56 04/28/18 06:56 Microbiology and Other Data: Microbiology 04/27/18 13:10 Gram Stain - Final Sputum 04/26/18 15:17 Aerobic Blood Culture - Preliminary Blood Venous No Growth Day 1 Anaerobic Blood Culture - Preliminary No Growth Day 1 04/26/18 15:17 Aerobic Blood Culture - Preliminary Blood Venous No Growth Day 1 Anaerobic Blood Culture - Preliminary No Growth Day 1 Assess/Plan/Problems-Billing Assessment: 68 yo male with hx of chronic sinusitis, COPD, pontine brain lesion , GERD, HTN who presented with c/o generalized weakness and headache, multiple rounds of outpatient antibiotics, found to have erosion and possible mass on sinus CT, - Patient Problems (1) Chronic sinusitis Comment: - Sinus CT showing "Opacification of the sphenoid sinus with erosive changes and soft tissue density of the floor of the sphenoid and posterior nasopharynx while this may represent locally aggressive chronic sinusitis, including fungal , neoplasm is also within the differential". - Appreciate ID consult - ok to DC antibiotics on discharge and await ENT eval. - Discussed with ENT - concern for possible tumor - plan for CT chest/ab/pelvis d/t reported hx of hemopytosis and will follow up with patient tomorrow in office. (2) COPD (chronic obstructive pulmonary disease) Comment: stable. continue home inhalers (3) HTN (hypertension) Comment: continue norvasc (4) Full code status (5) DVT prophylaxis Comment: HSQ Status and Disposition: Plan for DC to home today
[2018-04-28] MEDS: Albuterol 2.5 MG/3 ML NEB.SOL* (0.083%) INH PRN (13:22)
--- NOTE | 2018-04-28 13:34 | RAD ---
Indication: Metastatic cancer, history of smoking. Contrast: Administered 80.0 ml of OMNIPAQUE 300 mg/ml. CT of the chest, abdomen and pelvis was performed after oral and IV contrast administration. Coronal and sagittal reconstructed images were obtained. Prior CT of the chest dated February 10, 2018 demonstrates no focal masses. Inferior thyroid lobes are unremarkable. No definite mediastinal adenopathy is noted. The heart demonstrates no pericardial effusion. Atherosclerosis of the descending aorta is noted. The trachea and major bronchi appear patent. The lung garcia demonstrate no evidence of alveolar consolidation. No pleural fluid or nodules are noted, although central lobular emphysema is noted. No focal masses are noted. CT of the abdomen and pelvis demonstrates low density lesions in the left lobe of the liver likely representing small cysts measuring up to 12 mm. Additional medial segment of the left lobe low density lesion measures up to 4 mm. No solid lesions are noted. No intrahepatic duct dilatation is noted. The gallbladder demonstrates no calcified gallstones. No pericholecystic fluid or wall thickening is identified. The pancreas demonstrates no mass or pancreatic duct dilatation. The spleen is normal in size. The adrenal glands demonstrate bilateral nodular hyperplasia. The kidneys demonstrate symmetric nephrograms with a left-sided extrarenal pelvis. Atherosclerotic aorta is noted with no retroperitoneal lymphadenopathy. No dilated loops of bowel are noted. CT of the pelvis demonstrates unremarkable urinary bladder. The prostate demonstrates calcifications from prior prostatitis. No hernias are noted. The bony structures, including the thoracic spine and lumbar spine demonstrate no definite sclerotic or lytic lesions. IMPRESSION: 1. Emphysematous changes of the lung garcia are noted. 2. Low density lesions in the liver likely representing small cysts, unchanged from prior exam. 3. Nodular hyperplasia of both adrenal glands, unchanged from previous exam. No focal masses are identified.
[2018-04-28] MEDS: Acetaminophen TAB* 325 MG PO PRN (14:28)
[2018-04-28 15:23] VITALS: BP 140/75
--- NOTE | 2018-04-29 09:58 | DS ---
CC: Johnson Yoo NP; Dr. Green * DISCHARGE SUMMARY: DATE OF ADMISSION: 04/26/18 DATE OF DISCHARGE: 04/28/18 ATTENDING PHYSICIAN: Dr. Kunz * (report dictated by Hakan Patterson NP). PRIMARY CARE PROVIDERS: Johnson Yoo NP and Dr. Green. CONSULTANTS: 1. John Ramey MD 2. Chuck Cook MD DISCHARGE DIAGNOSES: 1. Nasal mass. 2. Thrombocytosis. 3. Elevated troponin thought to be secondary to demand ischemia. 4. Leukocytosis. SECONDARY DIAGNOSES: 1. Chronic obstructive pulmonary disease. 2. Long-term history of tobacco abuse, previous. 3. History of pontine brain lesion. 4. Gastroesophageal reflux disease. 5. Hypertension. 6. Thrombocytosis. DISCHARGE MEDICATIONS: 1. Albuterol HFA 1 puff INH q.6 hours p.r.n. 2. Gabapentin 300 mg p.o. q.a.m. 3. Zantac 150 mg p.o. b.i.d. 4. Acetaminophen 650 mg p.o. q.6 hours p.r.n. 5. Baclofen 5 mg p.o. b.i.d. p.r.n. 6. Omeprazole 40 mg p.o. daily. 7. Nortriptyline 10 mg p.o. at bedtime. 8. Atrovent 0.5 mg nebulizer INH q.4 hours p.r.n. 9. Oxycodone 5 mg p.o. b.i.d. p.r.n. 10. Amlodipine 10 mg p.o. daily. 11. Afrin nasal spray. Per the patient, he has been using this for the past several months. Okay to use for now, but did discuss with the patient to discuss this with ENT. HISTORY OF PRESENT ILLNESS AND HOSPITAL COURSE: Please see history and physical by MISHA Dickerson, for full admission details but in summary, this is a 68-year- old male with a past medical history as stated above who presented to the emergency room with complaints of generalized weakness and worsening chronic sinusitis since January. The patient has been seen in consultation as an outpatient by Dr. Cook and he has been treated with 2 separate rounds of antibiotics and has not improved. He was also seen previously by an ENT physician who prescribed him another round of antibiotics initially prior to Dr. Cook's evaluation, did not improve on that either. In the emergency department, he underwent a sinus CT which showed "there is opacification of the sphenoid sinus with erosive changes and soft tissue density of the floor of the sphenoid sinus and posterior nasopharynx." All this may represent a locally aggressive chronic sinusitis including nasal fungal sinusitis. Neoplasm is also within the differential. The patient did present with an elevated white blood cell count of 18. The patient denied any fevers at home prior and has had no noted fevers throughout hospitalization. The patient on admission had a CRP of 40. This is trending down today and is noted to be 37. He has negative blood cultures with no growth day 2 and his sputum culture is pending at this time. The patient is noted to have 2 troponins of 0.04 and this is thought to be secondary to demand ischemia. An EKG was performed, he is noted to have some Q - waves, but these are noted on prior EKGs. The patient is recommended to have an outpatient cardiac stress test at some point. The patient was seen in consultation by ENT, Dr. Ramey, who reviewed the imaging and has concern for a nasal mass. Recommendation was for a chest CAT scan due to the patient's report of bloody sputum. However, the patient also reports that he has noted streaks of blood when he blows his nose. A CT of the chest, abdomen, and pelvis was performed with contrast which showed impression: 1. Emphysematous changes of the lung garcia are noted. 2. Low density lesions in the liver, likely represent small cysts, unchanged from prior exam. 3. Nodular hyperplasia of both adrenal glands, unchanged from previous exam. No focal masses are identified. The plan is for the patient to be discharged home today. The patient agrees with this plan. He reports that he is at his baseline and ambulating with his walker. He is oxygenating at his baseline currently on 3 L nasal cannula which he wears at home 24x7. The patient is to follow up with Dr. Ramey on Thursday in the office. In regards to the patient's leukocytosis, it is unclear of the etiology. It is thought that most likely this is not infectious and thought to be a nasal tumor. His blood cultures are negative. He has had no signs of sepsis. His urinalysis was unremarkable. DISCHARGE PLAN: 1. The patient will be discharged to home. He is at his baseline. 2. Followup with Dr. Ramey in the office on Thursday. 3. The patient will follow up with Dr. Cook as needed. The decision was made to not send the patient home on antibiotics as it is thought that this is not infectious. 4. Recommend for followup labs next week. 5. Recommend outpatient cardiac stress test. TIME SPENT: Approximately 60 minutes were spent on this discharge. HAKAN PATTERSON, SEAN [id number]/CPS #: [id number] ROGER
== END 2018-04-28 16:16 | disposition home or self-care (01) ==
LOC: ED 14:12 → MED 17:18
PROVIDERS: ADMIT Internal Medicine; ATTEND Internal Medicine
DX: J34.89 Other specified disorders of nose and nasal sinuses (principal); D47.3 Essential (hemorrhagic) thrombocythemia; R74.8 Abnormal levels of other serum enzymes; D72.829 Elevated white blood cell count, unspecified; J44.9 Chronic obstructive pulmonary disease, unspecified; K21.9 Gastro-esophageal reflux disease without esophagitis; I10 Essential (primary) hypertension; G93.9 Disorder of brain, unspecified; Z79.899 Other long term (current) drug therapy; K76.9 Liver disease, unspecified; E27.8 Other specified disorders of adrenal gland; Z88.8 Allergy status to other drugs, medicaments and biological substances; Z88.1 Allergy status to other antibiotic agents; R53.1 Weakness; Z87.891 Personal history of nicotine dependence; R94.31 Abnormal electrocardiogram [ECG] [EKG]; R00.0 Tachycardia, unspecified
CPT/HCPCS: 36415; 70486; 71046; 71260; 74177; 80048; 80053; 81003; 82150; 82550; 83605; 83690; 83735; 84484; 85025; 85610; 86140; 87040; 87070; 87205; 93005; 94640; 96365; 96366; 96372; 96375; 96376; 99283; A9270-GY; G0378; G8978-GP-CI; J1644; J1885; J2405; J2543; Q9967

== ENCOUNTER 2018-05-08 21:14 | Emergency (ER) | payer MEDICARE ==
--- OUTSIDE RECORDS SUMMARY | 2018-05-08 22:05 | XMS REPORT ---
:1950 External Reference #:[id number] Author Organization [facility] Address [address] [place] [address] [place] [address] Phone [phone] Care Team Providers Name Role Phone Sabrina Pavon MD Primary Care Physician Unavailable Payers Type Date Identification Numbers Payment Provider Subscriber Commercial Effective: Policy Number: [id number] [employer]Howard Alexandru Chopra 2016 Options PayID: [id number] [address] [address] Attn: [place] [address] [employer] Expires: 2016 Policy Number: [id number] Medicare Alexandru Chopra PayID: [id number] [address] [place] [address] Problems Date Description Provider Status Onset: 05/09/2013 Chronic obstructive lung disease Wallace Cabrales M.D. Active Onset: 05/09/2013 Mixed hyperlipidemia Wallace Cabrales M.D. Active Onset: 05/09/2013 Headache Wallace Cabrales M.D. Active Onset: 05/09/2013 Tobacco user Wallace Cabrales M.D. Active Onset: 05/09/2013 Obesity Wallace Cabrales M.D. Active Onset: 07/19/2013 Insomnia Wallace Cabrales M.D. Active Onset: 07/19/2013 Spasm Wallace Cabrales M.D. Active Onset: 08/08/2013 Hypo-osmolality and or hyponatremia Wallace Cabrales M.D. Active Onset: 10/06/2014 Dyssomnmaribel Torres MD Active Onset: 04/27/2018 Essential hypertension Loreto Mckeon NP Active Onset: 04/26/2018 Chronic sinusitis MISHA Dickerson Active Onset: 04/26/2018 Malaise and fatigue MISHA Dickerson Active Family History Date Family Member(s) Problem(s) Comments General Heart Disease Mother Brain Cancer First Brother Prostate Cancer Social History Type Date Description Comments Lives With Father Occupation Disabled Occupation disabled since 2006 Cigarette Use 01/28/2016 Heavy tobacco smoker (more than </=1ppd 10 cigarettes/day) ETOH Use Denies alcohol use Recreational Drug Use Denies Drug Use Smoking Patient is a former smoker Quit- 09/01/2017 Daily Caffeine Consumes on average 1 cup of regular coffee per day Exercise Type/Frequency Negative For Does not exercise Allergies, Adverse Reactions, Alerts Date Description Reaction Status Severity Comments 05/09/2013 Demerol Hallucinations active 05/09/2013 Ceftin SOB active 06/07/2014 Symbicort (US) FEELING OF SKIN active Moderate to CRAWLING Severe 02/18/2018 Warfarin active 02/18/2018 Azithromycin active GI upset 03/26/2018 Augmentin active Severe nausea 04/22/2018 Levofloxacin active Abdominal pain Medications Medication Date Status Form Strength Qnty SIG Indications Ordering Provider Ranitidine 150 04/22 Active Tablets 150mg 60tab one by mouth R10.9 Johnson Maximum /2017 s twice a day SEAN Yoo Strength as needed Fluticasone 04/16 Active Suspension 50mcg/Act 16uni inhale two J32.2 Chuck Propionate ts sprays in D. each nostril Macqueen, every day M.DAbdifatah Proair HFA 03/11 Active Aerosol 108(90Bas 8.500 1 puff every Sapna e) gm 6 hours as Brian, mcg/Act needed Amlodipine 03/01 Active Tablets 10mg 30tab 1 by mouth Johnson Besylate /2017 s every day SEAN Yoo Oxycodone HCL 12/03 Active Tablets 5mg 30tab 1 by mouth Ojhnson /2018 s every 12 SEAN Yoo hours as needed headache Wheelchair 07/22 Active Misc 1unit lightweight J44.9 Kevin E. /2017 s papa Warren M.D. dx: COPD, chronic dyspnea with exertion Shower Chair 12/26 Active use with J44.9 Kevin E. bathing for Norma dyspnea sx M.D. Nebulizer 07/20 Active Kit 1unit use as Kevin E. Kit/Tubing/Mout /2014 s directed dx: Norma michael j44.9 M.D. Gabapentin 01/12 Active Capsules 300mg 90cap Take One Kevin E. /2012 s Capsule By Norma, Mouth In Am M.D. Baclofen Active Tablets 10mg 90tab take 1/2 Kevin E. / s tablet by Norma, mouth twice M.D. daily or as needed Oxygen Active Misc 2 L Unknown continuously Benzonatate Active Capsules 100mg 90cap take 1 Johnson /0000 s capsule by SEAN Yoo mouth every 4 hours as needed for cough Nortriptyline Active Capsules 10mg 90cap Take 1 Kevin E. HCL / s Capsule By Norma Mouth AT M.D. Bedtime as Needed Butalbital/Acet Active Tablets 50-325-40 16tab take 1 R51 Johnson aminophen/Caffe / mg s tablet by SEAN Yoo ine mouth twice a day *no more than 2 days/week* Anoro Ellipta Active Aerosol 62.5-25mc 1 inhalation Unknown / g/Inh daily Albuterol Active Nebulizer Via Unknown Sulfate nebulizer, as needed Omeprazole Active Capsules DR 20mg 60cap Take 2 Kevin E. / s Capsules By Norma Mouth Daily M.D. AT 7:30Am Tylenol 8 Hour Active Tablets ER 650mg 1 tab every Unknown /0000 6 hours as needed for pain Metoclopramide 04/22 Hx Tablets 5mg 30tab one tablet Johnson HCL /2017 s every 8 Fredo [employer] - hours as 04/22 needed. Ondansetron 04/20 Hx Tablets 4mg 30tab dissolve one Johnson /2017 Dispers s tablet Fredo [employer] MANAGER - orally every 04/22 8 hours needed for nausea. Doxycycline 04/16 Hx Capsules 100mg 60cap 1 by mouth J32.2 Chuck Monohydrate /2017 s twice a day D. - with food Macqueen, 05/03 M.D. /2017 Levofloxacin 04/15 Hx Tablets 500mg 10tab one by mouth J01.90 Johnson /2018 s daily for 10 Fredo, [employer] MANAGER - days 04/15 Moxifloxacin 04/15 Hx Tablets 400mg 10tab 1 tablet Johnson HCL s once daily x Fredo, [employer]EDIT [employer]LE[employer] MANAGER - 10 days - pt 04/16 never started Doxycycline 04/12 Hx Capsules 100mg 14cap one tablet J01.90 Johnson Hyclate s twice daily Fredo, [employer]EDIT [employer]LE[employer] MANAGER - for 7 days. 04/15 Doxycycline 03/30 Hx Capsules 100mg 20cap one tablet J01.90 Johnson Hyclate /2017 s twice daily Fredo, [employer]EDIT [employer]LE[employer] MANAGER - for 10 days. 04/09 Levofloxacin 03/26 Hx Tablets 500mg 10tab one by mouth J01.90 Johnson s daily for 10 Fredo, [employer]EDIT [employer]LE[employer] MANAGER - days 03/30 Fluticasone 03/23 Hx Suspension 50mcg/Act 48gm 1 spray each Johnson Propionate nostril Fredo, [employer]EDIT [employer] MANAGER - daily as 05/05 needed Levalbuterol 02/25 Hx Nebulizer 0.63mg/3M 225ml use 3-4x Sapna HCL /2017 L daily as Brian, - needed for MD 03/11 shortness of breath Albuterol 02/24 Hx Nebulizer 0.63mg/3M 675ml 1 unit, Sapna Sulfate L nebl, every Brian, - 6 hours, as 02/25 needed Levalbuterol 02/22 Hx Aerosol 45mcg/Act 15gm 2 puffs J44.9 Johnson Tartrate every 4-6 Fredo, [employer]EDIT [employer]LE[employer] MANAGER - hours as 03/11 needed for SOB Incruse Ellipta 02/20 Hx Aerosol 62.5mcg/I 30uni inhale one Sapna nh ts puff by Brian, - mouth every MD 02/25 day Incruse Ellipta 01/05 Hx Aerosol 62.5mcg/I 30uni inhale 1 Kevin E. nh ts puff by Norma, - mouth every M.D. 02/18 day Ibuprofen 11/11 Hx Tablets 600mg 90tab Take 1 Kevin E. s Tablet By Norma, - Mouth Twice M.D. 05/03 A Day Needed Lioresal 10MG 10/27 Hx Tablet 90tab Take 10/20 s Tablet By Norma, - Mouth Twice M.D. 02/18 Daily Or Needed--not currently taking Ipratropium 05/30 Hx Solution 0.5-2.5(3 90uni Inhale 1 Kevin E. Rome/Albuter )mg/3ML ts Vial Via Norma, ol Sulfate - Nebulizer M.D. 02/18 Twice Daily as Needed For Shortness Of Breath Ipratropium 05/30 Hx Solution 0.5-2.5(3 540un Inhale 1 Kevin E. Rome/Albuter )mg/3ML its Vial Via Norma, ol Sulfate - Nebulizer M.D. 02/18 Twice Daily as Needed For Shortness Of Breath Flomax 01/27 Hx Capsules 0.4mg 90cap 1 by mouth Z80.42 s every day Eloisa Green M.DAbdifatah 07/20 Atrovent HFA 11/20 Hx Aerosol 17mcg/Act 12.9u 1 unit, nits inhl, twice Norma, - a day M.D. 01/27 Incruse Ellipta 11/05 Hx Aerosol 62.5mcg/I 1unit 1 inhalation nh s every day Eloisa Green.DAbdifatah 11/20 Neomycin/Polymy 05/17 Hx Suspension 3.5-60498 1vial Finished 381.00 Anna kenan/Hydrocortis /2014 -1 tammy Jin - M.DAbdifatah 07/16 [facility] NTS Step 1 03/02 Hx Patches 21mg/24HR 30uni 1 pach 305.1 Sapna /2014 24HR ts topically Brian, - every day 05/17 [facility] Nicotine 03/02 Hx Gum 4mg 60uni not taking F17.210 Sapna Polacrilex /2014 ts 1 gum, every Brian, - 6 hours as 01/27 needed Nicotine 10/06 Hx Patches 21mg/24HR 30uni 1 patch over 305.1 Kevin E. 24HR ts skin every Norma, - day M.D. 05/17 Nicotine 10/06 Hx Gum 2mg 60uni 1 gum every 305.1 Kevin E. Polacrilex ts 6 hours as Norma, - needed M.D. 05/17 Breo Ellipta 09/12 Hx Aerosol 100-25mcg 1unit 1 puff daily 496 Kevin Curran /2013 /Inh s Noram, - M.D. 02/13 Spiriva 09/12 Hx Capsules 18mcg 90cap Inhale 1 J44.9 Kevin Curran Handihaler s Capsule (2 Norma, - Puffs) Via M.D. 02/18 Handihaler Once Daily AT The Same Time Every Day Duoneb 06/22 Hx Solution 0.5-2.5(3 90uni Inhale 1 Abdifatah )mg/3ML ts Vial Via Norma, - Nebulizer M.D. 05/30 Twice Daily /2016 as Needed For Shortness Of Breath Advair HFA 06/07 Hx Aerosol 115-21mcg 12uni Inhale 2 J44.9 Kevin Curran /2013 /Act ts Puffs By Norma, - Mouth Twice M.D. 02/18 Daily. Rinse Mouth After Use. Symbicort 04/10 Hx Aerosol 160-4.5mc 1unit 2 puffs by Kevin EAbdifatah /2013 g/Act s mouth twice Norma, - a day M.D. 06/07 Fluticasone 08/03 Hx Suspension 50mcg/Act 32gm 1 spray each Kevin Curran nostril Norma, - daily as M.D. 02/18 needed Oxycodone HCL 02/25 Hx Tablets 5mg 30tab 1 by mouth Kevin EAbdifatah s every 12 Norma, - hours as M.D. 07/16 needed headache Fioricet 11/12 Hx Tablets 50-325-40 16tab 1 twice a Alexandru S. /2012 mg s day max 2 Ez, - days/week M.D. 05/09 Spiriva Hx Capsules 18mcg Unknown Handihaler / - 09/21 Fluticasone 0000 Hx Suspension 50mcg/Act Unknown Propionate /0000 - 08/03 Flovent HFA Hx Aerosol 110mcg/Ac 1unit 2 puffs bid Kevin E. /0000 t s Norma, - Jose.DAbdifatah 09/11 Ibuprofen Hx Tablets 600mg 60tab Take 1 Kevin E. /0000 s Tablet By Norma, - Mouth Twice M.D. 09/07 A Day Needed Prednisone Hx Tablets 20mg Take 2 Tabs Unknown /0000 Daily For 4 - Days, 1&1/2 11/29 Daily For Days, 1 Daily For 5 Da Ventolin HFA Hx Aerosol 108(90Bas 18uni Inhale 2 J44.9 Kevin E. /0000 e) ts Puffs By Norma, - mcg/Act Mouth 4 M.D. 02/17 Times Daily as Needed Tylenol Extra Hx Tablets 500mg 2 by mouth Unknown Strength /0000 every 6 - hours as 05/05 needed Levaquin Hx Tablets 750mg 1 tab by Unknown /0000 mouth daily - for 10 days 03/26 Xopenex Hx Nebulizer 1.25mg/0. q 2 hours as Unknown Concentrate /0000 5ML needed - 04/07 Prednisone Hx Tablets 40mg Take 2 Unknown /0000 Tablets By - Mouth Daily 04/07 For 4 Days Then 1 Tablet For 4 Days (20MG) Ipratropium Hx Solution 0.02% Inhale Unknown Rome /0000 Contents Of - 1 Vial Via 04/07 Inhalation Every 4 Hours as Needed For S Levalbuterol Hx Nebulizer 1.25mg/0. Inhale 1 Unknown HCL /0000 5ML Vial Via - Nebulizer 02/25 Every Hours as Needed For Dyspnea Medications Administered in Office Medication Date Status Form Strength Qnty SIG Indications Ordering Provider Inj, Administered Injection Gerber Alan Regadenoson, Digna Zavala M.D. 0.1 MG Technetium TC Administered Injection Gerber Alan 99M Digna Zavala M.D. Tetrofosmin, Per Unit Dose Up To 40 Millicuries Technetium TC Administered Injection Gerber Mcclain 016 Andrew Zavala Tetrofosmin, Per Unit Dose Up To 40 Millicuries Immunizations CPT Code Status Date Vaccine Lot # [id number] Given 08/20/2017 Influenza Virus Vaccine, Quadrivalent, Split, Preservative Free [id number] Given 07/29/2016 Influenza Virus Vaccine, Quadrivalent, Split [id number] Virus, [place] Use [id number] Given 07/17/2015 Influenza Virus Vaccine, Quadrivalent, Split, [id number] Preservative Free 71318 Given 09/12/2014 Pneumococcal Conjugate Vaccine 13 Valent For [id number] Intramuscular Use [id number] Given 08/23/2014 Flu Vaccine Split Virus Preservative Free For Indiv 3Yr Older [id number] Given 08/29/2013 Flu Vaccine NOS 33833 Given 09/10/2011 Pneumonia Vaccine [id number] Given 06/04/2011 Tdap - Tetanus/Diptheria/Acellular Pertussis Vital Signs Date Vital Result Comment 05/06/2018 Height 65 inches 5'5" Weight 144.00 lb Heart Rate 80 /min BP Systolic Sitting 126 mmHg BP Diastolic Sitting 80 mmHg Respiratory Rate 14 /min BMI (Body Mass Index) 24.0 kg/m2 05/04/2018 Height 65 inches 5'5" Weight 144.00 lb BP Systolic Sitting 106 mmHg BP Diastolic Sitting 54 mmHg Respiratory Rate 14 /min Body Temperature 97.9 F BMI (Body Mass Index) 24.0 kg/m2 05/03/2018 Height 65 inches 5'5" Weight 144.00 lb Heart Rate 72 /min BP Systolic Sitting 120 mmHg BP Diastolic Sitting 60 mmHg Pain Level 8 O2 % BldC Oximetry 92 % BMI (Body Mass Index) 24.0 kg/m2 04/26/2018 Height 65 inches 5'5" Weight 152.00 lb per pt Heart Rate 100 /min BP Systolic Sitting 116 mmHg BP Diastolic Sitting 60 mmHg Respiratory Rate 14 /min Body Temperature 98.2 F O2 % BldC Oximetry 86 % on 3Lo2 BMI (Body Mass Index) 25.3 kg/m2 04/22/2018 Height 65 inches 5'5" Weight 152.75 lb BP Systolic 118 mmHg BP Diastolic 62 mmHg Body Temperature 97.8 F BMI (Body Mass Index) 25.4 kg/m2 04/16/2018 Height 65 inches 5'5" Weight 149.50 lb Heart Rate 100 /min BP Systolic Sitting 120 mmHg BP Diastolic Sitting 58 mmHg Respiratory Rate 14 /min Body Temperature 98.5 F BMI (Body Mass Index) 24.9 kg/m2 04/08/2018 Height 65 inches 5'5" Weight 149.12 lb Heart Rate 124 /min BP Systolic Sitting 124 mmHg Lue regular cuff BP Diastolic Sitting 70 mmHg Lue regular cuff Respiratory Rate 12 /min O2 % BldC Oximetry 93 % BMI (Body Mass Index) 24.8 kg/m2 03/26/2018 Height 65 inches 5'5" Weight 153.00 lb Heart Rate 102 /min BP Systolic 131 mmHg BP Diastolic 76 mmHg Body Temperature 97.9 F O2 % BldC Oximetry 96 % BMI (Body Mass Index) 25.5 kg/m2 02/22/2018 Height 65 inches 5'5" Weight 157.00 lb Heart Rate 103 /min BP Systolic 129 mmHg BP Diastolic 71 mmHg O2 % BldC Oximetry 96 % BMI (Body Mass Index) 26.1 kg/m2 02/18/2018 Height 65 inches 5'5" Weight 157.00 lb Heart Rate 88 /min BP Systolic Sitting 128 mmHg BP Diastolic Sitting 70 mmHg Respiratory Rate 14 /min O2 % BldC Oximetry 96 % on 3 L BMI (Body Mass Index) 26.1 kg/m2 11/30/2017 Weight 166.38 lb Heart Rate 104 /min BP Systolic Sitting 158 mmHg BP Diastolic Sitting 82 mmHg Body Temperature 98.7 F O2 % BldC Oximetry 93 % 09/09/2017 Height 64.5 inches 5'4.50" Weight 157.00 lb Heart Rate 79 /min BP Systolic Sitting 138 mmHg BP Diastolic Sitting 72 mmHg Body Temperature 97.4 F BMI (Body Mass Index) 26.5 kg/m2 07/22/2017 Heart Rate 108 /min BP Systolic Sitting 158 mmHg 160/86 pt's machine BP Diastolic Sitting 65 mmHg 160/86 pt's machine Body Temperature 98.2 F O2 % BldC Oximetry 93 % 07/16/2017 BP Systolic Sitting 124 mmHg L arm 130/72 R arm BP Diastolic Sitting 64 mmHg L arm 130/72 R arm 02/23/2017 Height 64.5 inches 5'4.50" Weight 179.00 lb Heart Rate 84 /min BP Systolic Sitting 152 mmHg BP Diastolic Sitting 80 mmHg Respiratory Rate 14 /min O2 % BldC Oximetry 94 % BMI (Body Mass Index) 30.2 kg/m2 07/29/2016 Height 64.5 inches 5'4.50" Weight 175.00 lb Heart Rate 102 /min BP Systolic Sitting 140 mmHg BP Diastolic Sitting 70 mmHg Body Temperature 98.4 F O2 % BldC Oximetry 95 % BMI (Body Mass Index) 29.6 kg/m2 01/28/2016 Height 64.5 inches 5'4.50" Weight 180.00 lb Heart Rate 108 /min BP Systolic Sitting 146 mmHg BP Diastolic Sitting 82 mmHg Body Temperature 97.5 F O2 % BldC Oximetry 952 % BMI (Body Mass Index) 30.4 kg/m2 07/17/2015 Height 65 inches 5'5" Weight 175.00 lb Heart Rate 84 /min BP Systolic Sitting 124 mmHg BP Diastolic Sitting 82 mmHg O2 % BldC Oximetry 93 % BMI (Body Mass Index) 29.1 kg/m2 05/17/2015 Weight 175.00 lb Heart Rate 60 /min BP Systolic Sitting 149 mmHg BP Diastolic Sitting 78 mmHg Body Temperature 96.8 F 03/02/2015 Height 65 inches 5'5" Weight 170.00 lb Heart Rate 55 /min BP Systolic Sitting 138 mmHg BP Diastolic Sitting 78 mmHg O2 % BldC Oximetry 91 % BMI (Body Mass Index) 28.3 kg/m2 02/13/2015 Height 65 inches 5'5" Weight 185.00 lb Heart Rate 74 /min BP Systolic Sitting 132 mmHg BP Diastolic Sitting 76 mmHg Respiratory Rate 20 /min Body Temperature 96.9 F Pain Level 9 O2 % BldC Oximetry 88 % Roomair BMI (Body Mass Index) 30.8 kg/m2 10/06/2014 Height 65 inches 5'5" Weight 183.00 lb Heart Rate 106 /min BP Systolic Sitting 162 mmHg BP Diastolic Sitting 82 mmHg Respiratory Rate 24 /min Body Temperature 97.3 F O2 % BldC Oximetry 95 % BMI (Body Mass Index) 30.4 kg/m2 Neck Circumference in inches 18 09/12/2014 Weight 180.75 lb Heart Rate 98 /min BP Systolic Sitting 138 mmHg BP Diastolic Sitting 66 mmHg Body Temperature 98.1 F O2 % BldC Oximetry 93 % 06/07/2014 Height 64.5 inches 5'4.50" Weight 179.00 lb Heart Rate 104 /min BP Systolic Sitting 118 mmHg BP Diastolic Sitting 60 mmHg Body Temperature 98.4 F BMI (Body Mass Index) 30.2 kg/m2 04/10/2014 Weight 185.00 lb Heart Rate 106 /min BP Systolic Sitting 148 mmHg BP Diastolic Sitting 70 mmHg Body Temperature 97.9 F O2 % BldC Oximetry 92 % 12/08/2013 Weight 179.00 lb Heart Rate 80 /min BP Systolic Sitting 132 mmHg BP Diastolic Sitting 70 mmHg Body Temperature 97.5 F 08/08/2013 Weight 177.00 lb Heart Rate 86 /min BP Systolic Sitting 134 mmHg BP Diastolic Sitting 76 mmHg 07/19/2013 Height 65 inches 5'5" Weight 179.50 lb Heart Rate 87 /min BP Systolic Sitting 146 mmHg BP Diastolic Sitting 80 mmHg BMI (Body Mass Index) 29.9 kg/m2 05/09/2013 Height 65 inches 5'5" Weight 184.00 lb Heart Rate 84 /min BP Systolic Sitting 158 mmHg BP Diastolic Sitting 84 mmHg O2 % BldC Oximetry 98 % BMI (Body Mass Index) 30.6 kg/m2 Results Test Date Test Result H/L Range Note Inr/Protime 04/26/2018 Inr 1.05 High 0.77-1.02 Laboratory test finding 04/26/2018 Lactic Acid 1.1 mmol/L 0.5-2.0 1 CBC Auto Diff 04/26/2018 White Blood Count 18.3 10^3/uL High 3.5-10.8 Red Blood Count 4.96 10^6/uL 4.00-5.40 Hemoglobin 15.3 g/dL 14.0-18.0 Hematocrit 45 % 42-52 Mean Corpuscular Volume 91 fL 80-94 Mean Corpuscular Hemoglobin 31 pg 27-31 Mean Corpuscular HGB Conc 34 g/dL 31-36 Red Cell Distribution Width 14 % 10.5-15 Platelet Count 573 10^3/uL High 150-450 Mean Platelet Volume 6.6 um3 Low 7.4-10.4 Abs Neutrophils 15.3 10^3/uL High 1.5-7.7 Abs Lymphocytes 1.4 10^3/uL 1.0-4.8 Abs Monocytes 1.3 10^3/uL High 0-0.8 Abs Eosinophils 0.2 10^3/uL 0-0.6 Abs Basophils 0.1 10^3/uL 0-0.2 Abs Nucleated RBC 0 10^3/uL Granulocyte % 83.5 % High 38-83 Lymphocyte % 7.5 % Low 25-47 Monocyte % 7.0 % 0-7 Eosinophil % 1.3 % 0-6 Basophil % 0.7 % 0-2 Nucleated Red Blood Cells % 0 Comp Metabolic Panel 04/26/2018 Sodium 139 mmol/L 135-145 Potassium 3.8 mmol/L 3.5-5.0 Chloride 97 mmol/L Low 101-111 Co2 Carbon Dioxide 34 mmol/L High 22-32 Anion Gap 8 mmol/L 2-11 Glucose 115 mg/dL High 70-100 Blood Urea Nitrogen 11 mg/dL 6-24 Creatinine 0.66 mg/dL Low 0.67-1.17 BUN/Creatinine Ratio 16.7 8-20 Calcium 9.7 mg/dL 8.6-10.3 Total Protein 7.7 g/dL 6.4-8.9 Albumin 3.6 g/dL 3.2-5.2 Globulin 4.1 g/dL High 2-4 Albumin/Globulin Ratio 0.9 Low 1-3 Total Bilirubin 0.40 mg/dL 0.2-1.0 Alkaline Phosphatase 106 U/L High 34-104 Alt 11 U/L 7-52 Ast 12 U/L Low 13-39 Egfr Non- 119.3 >60 Egfr 144.4 >60 2 Laboratory test finding 04/26/2018 Magnesium 2.0 mg/dL 1.9-2.7 Amylase 19 U/L Low 29-103 Lipase 11 U/L 11.0-82.0 Creatine Kinase(CK) 28 U/L 10-223 C Reactive Protein 40.59 mg/L High <8.01 Troponin-I (TnI) 0.04 ng/mL High <0.04 3 Blood Culture SEE RESULT BELOW 4 CBC Auto Diff 04/22/2018 White Blood Count 16.0 10^3/uL High 3.5-10.8 Red Blood Count 4.72 10^6/uL 4.00-5.40 Hemoglobin 14.5 g/dL 14.0-18.0 Hematocrit 44 % 42-52 Mean Corpuscular Volume 93 fL 80-94 Mean Corpuscular Hemoglobin 31 pg 27-31 Mean Corpuscular HGB Conc 33 g/dL 31-36 Red Cell Distribution Width 14 % 10.5-15 Platelet Count 502 10^3/uL High 150-450 Mean Platelet Volume 7.5 um3 7.4-10.4 Abs Neutrophils 13.4 10^3/uL High 1.5-7.7 Abs Lymphocytes 1.1 10^3/uL 1.0-4.8 Abs Monocytes 1.2 10^3/uL High 0-0.8 Abs Eosinophils 0.2 10^3/uL 0-0.6 Abs Basophils 0.1 10^3/uL 0-0.2 Abs Nucleated RBC 0 10^3/uL Granulocyte % 84.0 % High 38-83 Lymphocyte % 6.8 % Low 25-47 Monocyte % 7.3 % High 0-7 Eosinophil % 1.2 % 0-6 Basophil % 0.7 % 0-2 Nucleated Red Blood Cells % 0 Comp Metabolic Panel 04/22/2018 Sodium 139 mmol/L 135-145 Potassium 4.0 mmol/L 3.5-5.0 Chloride 95 mmol/L Low 101-111 Co2 Carbon Dioxide 35 mmol/L High 22-32 Anion Gap 9 mmol/L 2-11 Glucose 98 mg/dL 70-100 Blood Urea Nitrogen 8 mg/dL 6-24 Creatinine 0.65 mg/dL Low 0.67-1.17 BUN/Creatinine Ratio 12.3 8-20 Calcium 9.1 mg/dL 8.6-10.3 Total Protein 6.8 g/dL 6.4-8.9 Albumin 3.4 g/dL 3.2-5.2 Globulin 3.4 g/dL 2-4 Albumin/Globulin Ratio 1.0 1-3 Total Bilirubin 0.40 mg/dL 0.2-1.0 Alkaline Phosphatase 104 U/L 34-104 Alt 13 U/L 7-52 Ast 14 U/L 13-39 Egfr Non- 121.8 >60 Egfr 147.4 >60 5 Laboratory test finding 04/22/2018 Lipase 13 U/L 11.0-82.0 Hemoglobin A1c (Glyco HGB) 6.1 % High 4.0-5.6 6 Urinalysis Profile 02/11/2018 Urine Color Straw Urine Appearance Clear Urine Specific Sperry 1.004 Low 1.010-1.030 Urine pH 7.0 5-9 Urine Urobilinogen Negative Negative Urine Ketones Negative Negative Urine Protein Negative Negative Urine Leukocytes Negative Negative Urine Blood 1+ Negative Urine Nitrite Negative Negative Urine Bilirubin Negative Negative Urine Glucose Negative Negative Urine White Blood Cell Trace(0-5/hpf) Absent Urine Red Blood Cell Trace(0-2/hpf) Absent Urine Bacteria Absent Absent Urine Culture And Sensitivities 02/11/2018 Urine Culture SEE RESULT BELOW 7 Arterial Blood Gas 02/10/2018 O2 Device vapotherm Fio2 100 PH Arterial 7.33 Low 7.35-7.45 Pco2 Arterial 78 mmHg High 35-45 8 Po2 Arterial 240 mmHg High 80-100 O2 Saturation Arterial 100.1 % High 95-98 Base Excess Arterial 11.0 High -2.0-2.0 9 Hco3 Arterial 33.5 mmol/L High 19-31 CBC Auto Diff 02/10/2018 White Blood Count 12.8 10^3/uL High 3.5-10.8 Red Blood Count 4.98 10^6/uL 4.0-5.4 Hemoglobin 15.6 g/dL 14.0-18.0 Hematocrit 45 % 42-52 Mean Corpuscular Volume 91 fL 80-94 Mean Corpuscular Hemoglobin 31 pg 27-31 Mean Corpuscular HGB Conc 35 g/dL 31-36 Red Cell Distribution Width 13 % 10.5-15 Platelet Count 298 10^3/uL 150-450 Mean Platelet Volume 6.2 um3 Low 7.4-10.4 Abs Neutrophils 10.1 10^3/uL High 1.5-7.7 Abs Lymphocytes 1.2 10^3/uL 1.0-4.8 Abs Monocytes 1.4 10^3/uL High 0-0.8 Abs Eosinophils 0 10^3/uL 0-0.6 Abs Basophils 0 10^3/uL 0-0.2 Abs Nucleated RBC 0 10^3/uL Granulocyte % 78.7 % 38-83 Lymphocyte % 9.5 % Low 25-47 Monocyte % 11.3 % High 0-7 Eosinophil % 0.2 % 0-6 Basophil % 0.3 % 0-2 Nucleated Red Blood Cells % 0.1 Laboratory test finding 02/10/2018 Lactic Acid 1.0 mmol/L 0.5-2.0 10 Comp Metabolic Panel 02/10/2018 Sodium 128 mmol/L Low 139-145 Potassium 3.7 mmol/L 3.5-5.0 Chloride 86 mmol/L Low 101-111 Co2 Carbon Dioxide 35 mmol/L High 22-32 Anion Gap 7 mmol/L 2-11 Glucose 116 mg/dL High 70-100 Blood Urea Nitrogen 7 mg/dL 6-24 Creatinine 0.55 mg/dL Low 0.67-1.17 BUN/Creatinine Ratio 12.7 8-20 Calcium 9.5 mg/dL 8.6-10.3 Total Protein 6.9 g/dL 6.4-8.9 Albumin 3.9 g/dL 3.2-5.2 Globulin 3.0 g/dL 2-4 Albumin/Globulin Ratio 1.3 1-3 Total Bilirubin 0.50 mg/dL 0.2-1.0 Alkaline Phosphatase 51 U/L 34-104 Alt 18 U/L 7-52 Ast 17 U/L 13-39 Egfr Non- 147.7 >60 Egfr 189.9 >60 11 Laboratory test finding 02/10/2018 C Reactive Protein 1.24 mg/L < 5.00 12 Troponin-I (TnI) 0.01 ng/mL <0.04 Inr/Protime 02/10/2018 Inr 0.98 0.77-1.02 Laboratory test 02/10/2018 D Dimer Quantitative < 200 ng/mL Less Than 230 13 finding B-Type Natriuretic Peptide BNP 122 pg/mL High 14 Rapid Influenza A & B 02/08/2018 Influenza A Molecular NEGATIVE Negative 15 Molecular Influenza B Molecular NEGATIVE Negative Arterial Blood Gas 02/08/2018 Fio2 3 PH Arterial 7.34 Low 7.35-7.45 Pco2 Arterial 82 mmHg High 35-45 16 Po2 Arterial 133 mmHg High 80-100 O2 Saturation Arterial 99.2 % High 95-98 Base Excess Arterial 13.8 High -2.0-2.0 17 Hco3 Arterial 35.6 mmol/L High 19-31 Laboratory test 02/08/2018 Rapid Influenza A B SEE RESULT BELOW 18 finding Antigen CBC Auto Diff 02/08/2018 White Blood Count 11.1 10^3/uL High 3.5-10.8 Red Blood Count 4.97 10^6/uL 4.0-5.4 Hemoglobin 15.3 g/dL 14.0-18.0 Hematocrit 45 % 42-52 Mean Corpuscular Volume 91 fL 80-94 Mean Corpuscular Hemoglobin 31 pg 27-31 Mean Corpuscular HGB Conc 34 g/dL 31-36 Red Cell Distribution Width 13 % 10.5-15 Platelet Count 275 10^3/uL 150-450 Mean Platelet Volume 6.5 um3 Low 7.4-10.4 Abs Neutrophils 9.3 10^3/uL High 1.5-7.7 Abs Lymphocytes 0.8 10^3/uL Low 1.0-4.8 Abs Monocytes 0.9 10^3/uL High 0-0.8 Abs Eosinophils 0.1 10^3/uL 0-0.6 Abs Basophils 0 10^3/uL 0-0.2 Abs Nucleated RBC 0 10^3/uL Granulocyte % 83.5 % High 38-83 Lymphocyte % 7.2 % Low 25-47 Monocyte % 8.5 % High 0-7 Eosinophil % 0.5 % 0-6 Basophil % 0.3 % 0-2 Nucleated Red Blood Cells % 0.1 Laboratory test 02/08/2018 Blood Culture SEE RESULT BELOW 19 finding Laboratory test 02/08/2018 Lactic Acid 0.9 mmol/L 0.5-2.0 20 finding Inr/Protime 02/08/2018 Inr 0.94 0.77-1.02 Laboratory test 02/08/2018 Partial Thrombo 29.5 seconds 26.0-36.3 finding Time PTT D Dimer Quantitative < 200 ng/mL Less Than 230 21 B-Type Natriuretic Peptide BNP 41 pg/mL 22 Procalcitonin 0.1 ng/mL <0.6 23 Troponin-I (TnI) 0.01 ng/mL <0.04 Comp Metabolic Panel 02/08/2018 Sodium 130 mmol/L Low 139-145 Potassium 4.3 mmol/L 3.5-5.0 Chloride 84 mmol/L Low 101-111 Glucose 118 mg/dL High 70-100 Blood Urea Nitrogen 8 mg/dL 6-24 Creatinine 0.59 mg/dL Low 0.67-1.17 BUN/Creatinine Ratio 13.6 8-20 Calcium 9.5 mg/dL 8.6-10.3 Total Protein 7.0 g/dL 6.4-8.9 Albumin 4.0 g/dL 3.2-5.2 Globulin 3.0 g/dL 2-4 Albumin/Globulin Ratio 1.3 1-3 Total Bilirubin 0.40 mg/dL 0.2-1.0 Alkaline Phosphatase 72 U/L 34-104 Alt 20 U/L 7-52 Ast 25 U/L 13-39 Egfr Non- 136.2 >60 Egfr 175.2 >60 24 Co2 Carbon Dioxide 42 mmol/L High 22-32 25 Anion Gap 4 mmol/L 2-11 Laboratory test finding 02/08/2018 Creatine Kinase(CK) 154 U/L 10-223 C Reactive Protein 4.67 mg/L < 5.00 26 CKMB 02/08/2018 CKMB ng/mL 14.0 ng/mL High 0.6-6.3 27 Laboratory test finding 12/07/2017 Occult Blood - Stool negative Arterial Blood Gas 09/01/2017 Fio2 3 Vent Mode Liters PH Arterial 7.38 7.35-7.45 Pco2 Arterial 72 mmHg High 35-45 28 Po2 Arterial 75 mmHg Low 80-100 O2 Saturation Arterial 97.4 % 95-98 Base Excess Arterial 13.4 High -2.0-2.0 29 Hco3 Arterial 35.2 mmol/L High 19-31 CBC Auto Diff 09/01/2017 White Blood Count 13.1 10^3/uL High 3.5-10.8 Red Blood Count 5.22 10^6/uL 4.0-5.4 Hemoglobin 16.4 g/dL 14.0-18.0 Hematocrit 48 % 42-52 Mean Corpuscular Volume 93 fL 80-94 Mean Corpuscular Hemoglobin 31 pg 27-31 Mean Corpuscular HGB Conc 34 g/dL 31-36 Red Cell Distribution Width 13 % 10.5-15 Platelet Count 261 10^3/uL 150-450 Mean Platelet Volume 7 um3 Low 7.4-10.4 Abs Neutrophils 11.2 10^3/uL High 1.5-7.7 Abs Lymphocytes 0.7 10^3/uL Low 1.0-4.8 Abs Monocytes 1.0 10^3/uL High 0-0.8 Abs Eosinophils 0.1 10^3/uL 0-0.6 Abs Basophils 0.1 10^3/uL 0-0.2 Abs Nucleated RBC 0 10^3/uL Granulocyte % 85.6 % High 38-83 Lymphocyte % 5.6 % Low 25-47 Monocyte % 7.4 % 1-9 Eosinophil % 0.5 % 0-6 Basophil % 0.9 % 0-2 Nucleated Red Blood Cells % 0 Inr/Protime 09/01/2017 Inr 0.98 0.89-1.11 Laboratory test finding 09/01/2017 Lactic Acid 1.3 mmol/L 0.5-2.0 30 Troponin-I (TnI) 0.02 ng/mL <0.04 Comp Metabolic Panel 09/01/2017 Sodium 127 mmol/L Low 133-145 Potassium 3.6 mmol/L 3.5-5.0 Chloride 82 mmol/L Low 101-111 Glucose 121 mg/dL High 70-100 Blood Urea Nitrogen 6 mg/dL 6-24 Creatinine 0.59 mg/dL Low 0.67-1.17 BUN/Creatinine Ratio 10.2 8-20 Calcium 9.7 mg/dL 8.6-10.3 Total Protein 7.0 g/dL 6.4-8.9 Albumin 4.0 g/dL 3.2-5.2 Globulin 3.0 g/dL 2-4 Albumin/Globulin Ratio 1.3 1-3 Total Bilirubin 0.40 mg/dL 0.2-1.0 Alkaline Phosphatase 70 U/L 34-104 Alt 14 U/L 7-52 Ast 18 U/L 13-39 Egfr Non- 136.2 >60 Egfr 175.2 >60 31 Co2 Carbon Dioxide 42 mmol/L High 22-32 32 Anion Gap 3 mmol/L 2-11 Laboratory test finding 09/01/2017 B-Type Natriuretic Peptide BNP 33 pg/mL 33 Lipid Profile 02/19/2017 Triglycerides 100 mg/dL 34 (Trig/Chol/HDL) Cholesterol 226 mg/dL 35 HDL Cholesterol 42.9 mg/dL 36 LDL Cholesterol 163 mg/dL 37 CBC Auto Diff 07/29/2016 White Blood Count 11.6 10^3/uL High 3.5-10.8 Red Blood Count 5.72 10^6/uL High 4.0-5.4 Hemoglobin 17.9 g/dL 14.0-18.0 Hematocrit 53 % High 42-52 Mean Corpuscular Volume 92 fL 80-94 Mean Corpuscular Hemoglobin 31 pg 27-31 Mean Corpuscular HGB Conc 34 g/dL 31-36 Red Cell Distribution Width 13 % 10.5-15 Platelet Count 312 10^3/uL 150-450 Mean Platelet Volume 7 um3 Low 7.4-10.4 Abs Neutrophils 8.4 10^3/uL High 1.5-7.7 Abs Lymphocytes 1.3 10^3/uL 1.0-4.8 Abs Monocytes 1.3 10^3/uL High 0-0.8 Abs Eosinophils 0.4 10^3/uL 0-0.6 Abs Basophils 0.1 10^3/uL 0-0.2 Abs Nucleated RBC 0.01 10^3/uL Granulocyte % 72.8 % 38-83 Lymphocyte % 11.2 % Low 25-47 Monocyte % 11.6 % High 1-9 Eosinophil % 3.2 % 0-6 Basophil % 1.2 % 0-2 Nucleated Red Blood Cells % 0.1 Comp Metabolic Panel 07/29/2016 Sodium 133 mmol/L 133-145 Potassium 4.3 mmol/L 3.5-5.0 Chloride 96 mmol/L Low 101-111 Co2 Carbon Dioxide 33 mmol/L High 22-32 Anion Gap 4 mmol/L 2-11 Glucose 84 mg/dL 70-100 Blood Urea Nitrogen 8 mg/dL 6-24 Creatinine 0.71 mg/dL 0.67-1.17 BUN/Creatinine Ratio 11.3 8-20 Calcium 8.9 mg/dL 8.6-10.3 Total Protein 6.6 g/dL 6.4-8.9 Albumin 3.7 g/dL 3.2-5.2 Globulin 2.9 g/dL 2-4 Albumin/Globulin Ratio 1.3 1-3 Total Bilirubin 0.30 mg/dL 0.2-1.0 Alkaline Phosphatase 72 U/L 34-104 Alt 18 U/L 7-52 Ast 18 U/L 13-39 Egfr Non- 110.3 >60 Egfr 141.9 >60 38 Laboratory test finding 07/29/2016 TSH (Thyroid Stim Horm) 1.93 mcIU/mL 0.34-5.60 Magnesium 2.1 mg/dL 1.9-2.7 Laboratory test finding 01/29/2016 PSA Screening 0.416 ng/mL 0-4.000 39 Hemoglobin A1c (Glyco HGB) 6.0 % Less than 6.0 40 Comp Metabolic Panel 01/23/2016 Sodium 133 mmol/L 133-145 Potassium 4.5 mmol/L 3.5-5.0 Chloride 97 mmol/L Low 101-111 Co2 Carbon Dioxide 36 mmol/L High 22-32 Anion Gap 0 mmol/L Low 2-11 Glucose 106 mg/dL High 70-100 Blood Urea Nitrogen 9 mg/dL 6-24 Creatinine 0.77 mg/dL 0.67-1.17 BUN/Creatinine Ratio 11.7 8-20 Calcium 8.7 mg/dL 8.6-10.3 Total Protein 6.1 g/dL Low 6.4-8.9 Albumin 3.6 g/dL 3.2-5.2 Globulin 2.5 g/dL 2-4 Albumin/Globulin Ratio 1.4 1-3 Total Bilirubin 0.40 mg/dL 0.2-1.0 Alkaline Phosphatase 66 U/L 34-104 Alt 22 U/L 7-52 Ast 18 U/L 13-39 Egfr Non- 100.8 >60 Egfr 129.6 >60 41 Lipid Profile (Trig/Chol/HDL) 01/23/2016 Triglycerides 98 mg/dL 42 Cholesterol 212 mg/dL 43 HDL Cholesterol 38.0 mg/dL 44 LDL Cholesterol 154 mg/dL 45 Laboratory test finding 06/20/2014 PSA Screening 0.526 ng/mL 0-4.000 46 Hepatitis C Antibody Nonreactive Nonreactive Lipid Profile (Trig/Chol/HDL) 06/20/2014 Triglycerides 124 mg/dL 47 Cholesterol 202 mg/dL 48 HDL Cholesterol 36.6 mg/dL 49 LDL Cholesterol 141 mg/dL 50 CBC With Manual Diff 06/20/2014 White Blood Count 10.7 10^3/uL 4.8-10.8 Red Blood Count 5.54 10^6/uL High 4.0-5.4 Hemoglobin 18.0 g/dL 14.0-18.0 Hematocrit 52 % 42-52 Mean Corpuscular Volume 94 fL 80-94 Mean Corpuscular Hemoglobin 33 pg High 27-31 Mean Corpuscular HGB Conc 35 g/dL 31-36 Red Cell Distribution Width 14 % 10.5-15 Platelet Count 233 10^3/uL 150-450 51 Mean Platelet Volume 7 um3 7.4-10.4 52 Abs Neutrophils 7.8 10^3/uL High 1.5-7.7 Abs Lymphocytes 1.5 10^3/uL 1.0-4.8 Abs Monocytes 1.0 10^3/uL High 0-0.8 Abs Eosinophils 0.3 10^3/uL 0-0.6 Abs Basophils 0.1 10^3/uL 0-0.2 Abs Nucleated RBC 0.01 10^3/uL Neutrophil % 70 % 38-83 Lymphocytes % 14 % Low 25-47 Monocytes % 7 % 0-13 Eosinophils % 6 % 0-6 Basophil % 1 % 0-2 Reactive Lymph % 2 % 0-6 RBC Morphology Normal Normal Surgical Pathology 12/05/2013 S RUN DATE: 12/06/ <SEE NOTE> 53 Basic Metabolic Panel 09/09/2013 Sodium 135 mmol/L 133-145 Potassium 4.5 mmol/L 3.5-5.0 Chloride 98 mmol/L Low 101-111 Co2 Carbon Dioxide 32.0 mmol/L 22-32 Anion Gap 5.0 mmol/L 2-11 Glucose 98 mg/dL 70-100 Blood Urea Nitrogen 7 mg/dL 6-24 Creatinine 0.90 mg/dL 0.50-1.40 BUN/Creatinine Ratio 7.8 Low 8-20 Calcium 9.0 mg/dL 8.1-9.9 Egfr Non- 84.7 >60 Egfr 108.9 >60 54 Lipid Profile (Trig/Chol/HDL) 07/19/2013 Triglycerides 105 mg/dL 40-200 Cholesterol 209 mg/dL High Less than 200 HDL Cholesterol 36 mg/dL Low 40-60 55 Cholesterol/HDL Ratio 5.8 Average High 1-4.44 LDL Cholesterol 152.0 High Less Than 100 56 Comp Metabolic Panel 07/19/2013 Sodium 132 mmol/L Low 133-145 Potassium 4.6 mmol/L 3.5-5.0 Chloride 98 mmol/L Low 101-111 Co2 Carbon Dioxide 30.0 mmol/L 22-32 Anion Gap 4.0 mmol/L 2-11 Glucose 95 mg/dL 70-100 Blood Urea Nitrogen 7 mg/dL 6-24 Creatinine 0.70 mg/dL 0.50-1.40 BUN/Creatinine Ratio 10.0 8-20 Calcium 8.8 mg/dL 8.1-9.9 Total Protein 6.0 g/dL Low 6.2-8.1 Albumin 3.8 g/dL 3.2-5.2 Globulin 2.2 g/dL 2-4 Albumin/Globulin Ratio 1.7 1-3 Total Bilirubin 0.8 mg/dL 0.4-1.5 Alkaline Phosphatase 68 U/L 30-110 Alt 23 U/L 14-54 Ast 21 U/L 12-42 Egfr Non- 113.2 >60 Egfr 145.6 >60 57 1 [facility] Severe Sepsis and Septic Shock Management Bundle Measure requires all lactic acids initially measuring >2.0 mmol/L be repeated. 2 Because ethnic data is not always readily available, this report includes an eGFR for both -Americans and non- Americans. The National Kidney Disease Education Program (NKDEP) does not endorse the use of the MDRD equation for patients that are not between the ages of 18 and 70, are , have extremes of body size, muscle mass, or nutritional status, or are non- or non-. According to the National Kidney Foundation, irrespective of diagnosis, the stage of the disease is based on the level of kidney function: Stage Description GFR(mL/min/1.73 m(2)) 1 Kidney damage with normal or decreased GFR 90 2 Kidney damage with mild decrease in GFR 60-89 3 Moderate decrease in GFR 30-59 4 Severe decrease in GFR 15-29 5 Kidney failure <15 (or dialysis) 3 Result TnIDx:0.04 Called to [id number] at: 16:06:37 by:[id number] Read back by: [id number] 4 SEE RESULT BELOW Name: CHOPRAALEXANDRU : [address]: Estuardo Covarrubias MD Acct: [id number] Unit: [id number] AGE: 68 Location: [place] [address] Re04/26/18 Dis: 04/28/18 SEX: M Status: DIS Rut SPEC: [id number] DARBY: 04/26/18-[address]: Dede CABRAL REQ: [id number] RECD: 07/ STATUS: COMP OTHR DR: Johnson Yoo CREDIT COLLECTIONS MANAGER Eagle Chavarria MD _ SOURCE: BLOOD,VENO SPDESC: ORDERED: Blood Cult COMMENTS: Reason for Exam: fever, abd pain Procedure Result Reported Site Aerobic Culture Bottle Final 05/01/18- 1522 ML No Growth Day 5 Anaerobic Culture Bottle Final 05/01/18- 1522 ML No Growth Day 5 * ML - Main Lab . END OF REPORT DEPARTMENT OF PATHOLOGY, [address] [place] [address] Joselo Jamil M.D. Director [facility] # [id number] 5 Because ethnic data is not always readily available, this report includes an eGFR for both -Americans and non- Americans. The National Kidney Disease Education Program (NKDEP) does not endorse the use of the MDRD equation for patients that are not between the ages of 18 and 70, are , have extremes of body size, muscle mass, or nutritional status, or are non- or non-. According to the National Kidney Foundation, irrespective of diagnosis, the stage of the disease is based on the level of kidney function: Stage Description GFR(mL/min/1.73 m(2)) 1 Kidney damage with normal or decreased GFR 90 2 Kidney damage with mild decrease in GFR 60-89 3 Moderate decrease in GFR 30-59 4 Severe decrease in GFR 15-29 5 Kidney failure <15 (or dialysis) 6 Therapeutic target for the treatment of diabetes mellitus patients is <7% HBA1C, and in selective patients <6.0%. Please refer to [place] [employer] diabetic care guidelines for further information. 7 SEE RESULT BELOW Name: CHOPRAALEXANDRU : [address]: Mindy Kunz MD Acct: [id number] Unit: [id number] AGE: 67 Location: [place] [address] Re02/11/18 SEX: M Status: ADM IN SPEC: [id number] DARBY: 02/11/[address]: Sang Gutierrez MD REQ: [id number] RECD: 02/11/18 STATUS: MANDEEP RODRIGUEZ DR: Kevin Green III, MD _ SOURCE: URINE SPDESC: ORDERED: Urine Culture Procedure Result Reported Site Urine Culture Final 02/12/18- 922 ML No Growth (<1,000 CFU/mL) * ML - Main Lab . END OF REPORT DEPARTMENT OF PATHOLOGY, [address] [place] [address] Joselo Jamil M.D. Director [facility] # [id number] 8 Verbal to [id number] by [id number] at 2243 on 02/10/18. Results read back accurately. 9 Reference ranges based on room air. 10 [facility] Severe Sepsis and Septic Shock Management Bundle Measure requires all lactic acids initially measuring >2.0 mmol/L be repeated. 11 Because ethnic data is not always readily available, this report includes an eGFR for both -Americans and non- Americans. The National Kidney Disease Education Program (NKDEP) does not endorse the use of the MDRD equation for patients that are not between the ages of 18 and 70, are , have extremes of body size, muscle mass, or nutritional status, or are non- or non-. According to the National Kidney Foundation, irrespective of diagnosis, the stage of the disease is based on the level of kidney function: Stage Description GFR(mL/min/1.73 m(2)) 1 Kidney damage with normal or decreased GFR 90 2 Kidney damage with mild decrease in GFR 60-89 3 Moderate decrease in GFR 30-59 4 Severe decrease in GFR 15-29 5 Kidney failure <15 (or dialysis) 12 Acute inflammation: >10.00 13 Please note: The following may produce a false positive D Dimer test: - Rheumatoid factor greater than 60 IU/ml - Plasma hemoglobin greater than 0.05 gm/dl - Bilirubin greater than 50 mg/dl - Lipids greater than 1000 mg/dl - FDP greater than 20 ug/ml 14 >100 to <200 pg/mL: likely compensated congestive heart failure (CHF) 200 to 400 pg/mL: likely moderate CHF >400 pg/mL: likely moderate to severe CHF 15 Chief Of Staff Doctor: [id number] 16 Verbal to [id number] by [id number] at 1231 on 02/08/18. Results read back accurately. 17 Reference ranges based on room air. 18 SEE RESULT BELOW Name: ALEXANDRU CHOPRA : [address]: Kelly Kaur MD Acct: [id number] Unit: [id number] AGE: 67 Location: ED Re02/08/18 SEX: M Status: REG ER SPEC: [id number] DARBY: 02/08/18-[address] [facility] [address]: Kelly Kaur MD REQ: [id number] RECD: 02/08/18 STATUS: MANDEEP RODRIGUEZ DR: Kevin Green III, MD _ SOURCE: [facility]: ORDERED: Flu A B Request Procedure Result Reported Site Rapid Influenza A B Request Final 02/08/18- 1211 ML Specimen received for Influenza A/B Molecular testing * ML - Main Lab . END OF REPORT DEPARTMENT OF PATHOLOGY, [address] [place] [address] Joselo Jamil M.D. Director [facility] # [id number] 19 SEE RESULT BELOW Name: ALEXANDRU CHOPRA : [address]: Kelly Kaur MD Acct: [id number] Unit: [id number] AGE: 67 Location: ED Re02/08/18 SEX: M Status: DEP ER SPEC: [id number] DARBY: 02/08/[address]: Kelly Kaur MD REQ: [id number] RECD: 02/08/18 STATUS: MANDEEP RODRIGUEZ DR: Kevin Green III, MD _ SOURCE: BLOOD,VENO SPDESC: ORDERED: Blood Cult COMMENTS: Patient is On Antibiotics? YES Procedure Result Reported Site Aerobic Culture Bottle Final 02/13/18- 1158 ML No Growth Day 5 Anaerobic Culture Bottle Final 02/13/18- 115 ML No Growth Day 5 * ML - Main Lab . END OF REPORT DEPARTMENT OF PATHOLOGY, [address] [place] [address] Joselo Jamil M.D. Director [facility] # [id number] 20 [facility] Severe Sepsis and Septic Shock Management Bundle Measure requires all lactic acids initially measuring >2.0 mmol/L be repeated. 21 Please note: The following may produce a false positive D Dimer test: - Rheumatoid factor greater than 60 IU/ml - Plasma hemoglobin greater than 0.05 gm/dl - Bilirubin greater than 50 mg/dl - Lipids greater than 1000 mg/dl - FDP greater than 20 ug/ml 22 >100 to <200 pg/mL: likely compensated congestive heart failure (CHF) 200 to 400 pg/mL: likely moderate CHF >400 pg/mL: likely moderate to severe CHF 23 Interpretive information available on [employer] [facility] Test Catalog at [email or web address] 24 Because ethnic data is not always readily available, this report includes an eGFR for both -Americans and non- Americans. The National Kidney Disease Education Program (NKDEP) does not endorse the use of the MDRD equation for patients that are not between the ages of 18 and 70, are , have extremes of body size, muscle mass, or nutritional status, or are non- or non-. According to the National Kidney Foundation, irrespective of diagnosis, the stage of the disease is based on the level of kidney function: Stage Description GFR(mL/min/1.73 m(2)) 1 Kidney damage with normal or decreased GFR 90 2 Kidney damage with mild decrease in GFR 60-89 3 Moderate decrease in GFR 30-59 4 Severe decrease in GFR 15-29 5 Kidney failure <15 (or dialysis) 25 Verbal to [id number] by [id number] at 1204 on 02/08/18. Results read back accurately. 26 Acute inflammation: >10.00 27 Critical Result CO2:42 Called to [id number] at: 12:04:32 by:[id number] Read back by:[id number] 28 Verbal to [id number] by [id number] at 1343 on 09/01/17. Results read back accurately. 29 Reference ranges based on room air. 30 [facility] Severe Sepsis and Septic Shock Management Bundle Measure requires all lactic acids initially measuring >2.0 mmol/L be repeated. 31 Because ethnic data is not always readily available, this report includes an eGFR for both -Americans and non- Americans. The National Kidney Disease Education Program (NKDEP) does not endorse the use of the MDRD equation for patients that are not between the ages of 18 and 70, are , have extremes of body size, muscle mass, or nutritional status, or are non- or non-. According to the National Kidney Foundation, irrespective of diagnosis, the stage of the disease is based on the level of kidney function: Stage Description GFR(mL/min/1.73 m(2)) 1 Kidney damage with normal or decreased GFR 90 2 Kidney damage with mild decrease in GFR 60-89 3 Moderate decrease in GFR 30-59 4 Severe decrease in GFR 15-29 5 Kidney failure <15 (or dialysis) 32 Critical Result CO2:42 Called to [id number] at: 12:23:54 by:[id number] Read back by:[id number] 33 >100 to <200 pg/mL: likely compensated congestive heart failure (CHF) 200 to 400 pg/mL: likely moderate CHF >400 pg/mL: likely moderate to severe CHF 34 Desirable <150 Borderline high 150-199 High 200-499 Very High >500 35 Desirable <200 Borderline high 200-239 High >239 36 Low <40 Desirable: 40-60 High: >60 37 Desirable: <100 mg/dL Near Optimal: 100-129 mg/dL Borderline High: 130-159 mg/dL High: 160-189 mg/dL Very High: >189 mg/dL 38 Because ethnic data is not always readily available, this report includes an eGFR for both -Americans and non- Americans. The National Kidney Disease Education Program (NKDEP) does not endorse the use of the MDRD equation for patients that are not between the ages of 18 and 70, are , have extremes of body size, muscle mass, or nutritional status, or are non- or non-. According to the National Kidney Foundation, irrespective of diagnosis, the stage of the disease is based on the level of kidney function: Stage Description GFR(mL/min/1.73 m(2)) 1 Kidney damage with normal or decreased GFR 90 2 Kidney damage with mild decrease in GFR 60-89 3 Moderate decrease in GFR 30-59 4 Severe decrease in GFR 15-29 5 Kidney failure <15 (or dialysis) 39 Serum levels of PSA measured using the [employer] DXI Hybritech immunoassay should not be interpreted as absolute evidence of the presence or absence of disease. The PSA value should be used in conjunction with other pertinent clinical diagnostic procedures. A PSA value in the range of 0.1 to 0.6 ng/ml is indeterminate if being used as an indicator of recurrent or residual disease. The values obtained with different assay methods or kits cannot be used interchangeably. 40 Therapeutic target for the treatment of diabetes Mellitus patients is <7% HBA1C, and in selective patients <6.0%.Please refer to [place] [employer] Diabetic care guidelines for further information. 41 Because ethnic data is not always readily available, this report includes an eGFR for both -Americans and non- Americans. The National Kidney Disease Education Program (NKDEP) does not endorse the use of the MDRD equation for patients that are not between the ages of 18 and 70, are , have extremes of body size, muscle mass, or nutritional status, or are non- or non-. According to the National Kidney Foundation, irrespective of diagnosis, the stage of the disease is based on the level of kidney function: Stage Description GFR(mL/min/1.73 m(2)) 1 Kidney damage with normal or decreased GFR 90 2 Kidney damage with mild decrease in GFR 60-89 3 Moderate decrease in GFR 30-59 4 Severe decrease in GFR 15-29 5 Kidney failure <15 (or dialysis) 42 Desirable <150 Borderline high 150-199 High 200-499 Very High >500 43 Desirable <200 Borderline high 200-239 High >239 44 Low <40 Desirable: 40-60 High: >60 45 Desirable: <100 mg/dL Near Optimal: 100-129 mg/dL Borderline High: 130-159 mg/dL High: 160-189 mg/dL Very High: >189 mg/dL 46 Serum levels of PSA measured using the [employer] DXI Hybritech immunoassay should not be interpreted as absolute evidence of the presence or absence of disease. The PSA value should be used in conjunction with other pertinent clinical diagnostic procedures. A PSA value in the range of 0.1 to 0.6 ng/ml is indeterminate if being used as an indicator of recurrent or residual disease. The values obtained with different assay methods or kits cannot be used interchangeably. 47 Desirable <150 Borderline high 150-199 High 200-499 Very High >500 48 Desirable <200 Borderline high 200-239 High >239 49 Low <40 Desirable: 40-60 High: >60 50 Desirable <100 Near Optimal 100-129 Borderline high 130-159 High 160-189 Very High >189 51 --- 06/20/141647 --- Platelet Count previously reported as: 233 10 3/ul 52 --- 06/20/141647 --- MPV previously reported as: 7 L um3 53 RUN DATE: 12/06/13 [facility] LAB LIVE PAGE 1 RUN TIME: [id number] [place] [id number] Specimen Inquiry Name: ALEXANDRU CHOPRA : [address]: Ishaan Maki MD Acct: [id number] Unit: [id number] AGE: 63 Location: [facility] Re12/05/13 SEX: M Status: REG REF SPEC: [id number] DARBY: 12/05/13- SUBM DR: Ishaan Maki MD REQ: [id number] RECD: 12/05/13-1028 STATUS: CONG RODRIGUEZ DR: Kevin Green III, MD _ ORDERED: LEVEL IV FINAL DIAGNOSIS Colon, 3 cm., biopsy: Hyperplastic polyp. CLINICAL HISTORY Screening colonoscopy with personal history of polyps POST-OPERATIVE DIAGNOSIS Screening colonoscopy to cecum with ease, excellent prep - right colon normal - all negative except rectal nodule, minimal diverticulosis, positive family history GROSS DESCRIPTION The specimen is received in formalin labeled Alexandru Sweeney Chopra, Rectal Polyp at 3 cm. Biopsy, and consists of a 0.4 x 0.3 x 0.2 cm. joyce-red polypoid soft tissue fragment which is submitted entirely, one cassette. Signed (signature on file) Joselo Jamil MD [id number] END OF REPORT * ML=Testing performed at Main Lab DEPARTMENT OF PATHOLOGY, [address] [place] [address] Joselo Jamil M.D. Director [facility] Permit #[id number] 54 Because ethnic data is not always readily available, this report includes an eGFR for both -Americans and non- Americans. The National Kidney Disease Education Program (NKDEP) does not endorse the use of the MDRD equation for patients that are not between the ages of 18 and 70, are , have extremes of body size, muscle mass, or nutritional status, or are non- or non-. According to the National Kidney Foundation, irrespective of diagnosis, the stage of the disease is based on the level of kidney function: Stage Description GFR(mL/min/1.73 m(2)) 1 Kidney damage with normal or decreased GFR 90 2 Kidney damage with mild decrease in GFR 60-89 3 Moderate decrease in GFR 30-59 4 Severe decrease in GFR 15-29 5 Kidney failure <15 (or dialysis) 55 HDL Interpretation: Undesirable: High Risk: Less than 40 mg/dL Desirable: Low Risk: Greater than 60 mg/dL 56 LDL Interpretation: Low Risk Optimal Level: LDL Less than 100 mg/dL Near or Above Optimal: LDL 100-129 mg/dL Borderline High Risk: LDL 130-159 mg/dL High Risk: LDL 160-189 mg/dL Very High Risk: LDL Greater than 189 mg/dL 57 Because ethnic data is not always readily available, this report includes an eGFR for both -Americans and non- Americans. The National Kidney Disease Education Program (NKDEP) does not endorse the use of the MDRD equation for patients that are not between the ages of 18 and 70, are , have extremes of body size, muscle mass, or nutritional status, or are non- or non-. According to the National Kidney Foundation, irrespective of diagnosis, the stage of the disease is based on the level of kidney function: Stage Description GFR(mL/min/1.73 m(2)) 1 Kidney damage with normal or decreased GFR 90 2 Kidney damage with mild decrease in GFR 60-89 3 Moderate decrease in GFR 30-59 4 Severe decrease in GFR 15-29 5 Kidney failure <15 (or dialysis) Procedures Date CPT Code Description Status Comment 03/11/2018 97005 Diffusing Capacity Completed 03/11/2018 14349 Plethysmography Determination Lung Completed Volumes & Per Airway Resist 03/11/2018 52583 Pulmonary Stress Testing[facility] Measurement Completed Heart Rate, Oximetry 03/11/2018 80406 Pulmonary Function><Bronchodil Completed 02/11/2018 30677 ECHO Transthorasic Realtime 2D W Doppler Completed & Color Flow Hosp 08/06/2016 75796 Stress Test Completed 08/06/2016 13041 Myocardial Perfusion Imaging Tomographic Completed (Spect) Multiple Studies 08/01/2016 75266 ECHO Transthoracic, Real-Time 2D With Completed Doppler And Color Flow 07/30/2016 28732 Holter Monitor Review (24 hr)dr review & Completed interp only 07/29/2016 73009 ECG Monitor/Recording W/Visual Completed Superimposition Scanning 09/25/2014 15031 Diffusing Capacity Completed 09/25/2014 82605 Plethysmography Determination Lung Completed Volumes & Per Airway Resist 09/25/2014 36508 Pulmonary Function><Bronchodil Completed 12/05/2013 Colonoscopy Completed 10/19/2010 Colonoscopy Completed Colon polyps Encounters Type Date Location Provider CPT E/M Dx Office Visit 04/28/2018 [facility] [place], [place] [address] J32.9 3:15p Hospitalists J44.9 I10 Office Visit 04/26/2018 3:14p [facility] MISHA Dickerson 50668 R53.1 Assoc, Hospitalists R51 J44.9 J32.9 Office Visit 04/26/2018 1:20p [facility] Chuck Fiore, 56235 J32.9 Infectious Diseases M.D. R63.0 R63.4 R31.9 R53.1 Office Visit 04/22/2018 10:40a [facility] [place] [address] R10.9 [place] J32.1 J32.2 R63.1 Office Visit 04/16/2018 10:10a [facility] Chuck Fiore, 30412 J32.2 Infectious Diseases M.D. J32.1 Office Visit 04/08/2018 9:15a [facility] [address] J44.9 Services Of [facility] J96.10 Office Visit 03/26/2018 4:00p [facility] [place] [address] J01.90 [place] R04.2 Office Visit 02/22/2018 2:40p [facility] [place] [address] Z87.891 Dyana J44.9 Office Visit 02/18/2018 1:45p [facility] [place] [address] J44.9 Services Of [facility] R09.02 Z87.891 Office Visit 02/15/2018 [facility] [place] [address] J44.1 Hospitalists I10 A49.8 Office Visit 02/15/2018 2:30p [facility] [place] [address] J44.1 Services Of [facility] F17.201 R06.02 R09.02 Z99.81 Office Visit 02/14/2018 8:37a [facility] [address] J44.1 Hospitalists I10 A49.8 Office Visit 02/13/2018 8:35a [facility] Mindy Kunz, 83610 J44.1 Hospitalists M.D. I10 Office Visit 02/13/2018 2:30p [facility] [place] [address] J44.1 Services Of [facility] F17.201 R06.02 Z99.81 Office Visit 02/12/2018 8:29a [facility], Mindy Kunz, 74549 J44.1 Hospitalists M.DAbdifatah I10 Office Visit 02/11/2018 8:11a [facility] [place], [address] J44.1 Assoc, Hospitalists M.DAbdifatah I10 Office Visit 02/11/2018 12:00p Pul[facility] [place] [address] F17.201 Services Of [facility] J44.1 J96.11 J96.12 Office Visit 11/30/2017 3:20p [facility] Internal Medicine Kevin Green, 80866 R10.13 - Mathieu Mroales G43.C0 J44.9 Office Visit 09/09/2017 2:00p [facility] Internal Medicine Kevin Green, 39791 R10.13 - Mathieu Morales J44.1 Office Visit 09/04/2017 [facility] Maria R Real, 25580 J96.02 10:58a Assoc,pc [employer] Hospitalists J44.1 R10.13 Z72.0 Office Visit 09/03/2017 [facility] Maria R Real, 31402 J96.02 10:57a Assoc,pc [employer] Hospitalists J44.1 R10.13 Z72.0 Office Visit 09/03/2017 3:31p [facility] [place] [address] R10.13 J44.1 G43.C0 Office Visit 09/02/2017 10:57a [facility], Diana King, 88615 J96.02 Hospitalists N.P. J44.1 R10.13 Z72.0 Office Visit 09/01/2017 10:56a [facility], Diana King, 68669 J96.02 Hospitalists N.P. J44.1 Z72.0 Office Visit 07/22/2017 2:40p [facility] Internal Medicine Kevin Green, 45689 J44.9 - Mathieu Morales S06.0x9D Office Visit 02/23/2017 3:00p [facility] Internal Medicine Kevin Green, 18772 Z00.00 - Mathieu Morales J44.9 E78.2 F17.210 R60.0 Office Visit 01/28/2016 1:00p [facility] Internal Medicine Kevin Green, 13759 Z00.00 - Dyana Morales J44.9 F17.210 Z80.42 E78.2 R73.01 Z23 R35.0 Office Visit 07/17/2015 2:40p [facility] Internal Medicine Kevin Green, 67133 J44.9 - Dyana Morales F17.210 Z12.2 Z23 Office Visit 05/17/2015 12:40p [facility] Internal Medicine - Anna Jin 75174 381.00 Dyana Morales Office Visit 03/02/2015 9:30a [facility] [address] Services Of [facility] 305.1 278.00 Office Visit 02/13/2015 9:00a [facility] Internal Medicine - Kevin Green, [address]84 496 Dyana Morales Office Visit 10/06/2014 2:00p [facility] [place] [address] 496 Services Of [facility] 305.1 278.00 780.59 Office Visit 09/12/2014 3:40p [facility] Internal Medicine - Kevin Green, 13589 496 Dyana Morales v03.82 Office Visit 06/07/2014 9:00a [facility] Internal Medicine Kevin Green, 12883 V70.0 - [place] Andrew 496 272.2 784.0 V73.89 V16.42 V81.2 Office Visit 04/10/2014 3:40p [facility] Internal Medicine - Kevin Green, 66399 496 Dyana Morales 784.0 Office Visit 12/08/2013 10:00a [facility] Internal Medicine Kevin KapadiaAbdifatah Green, 60600 272.2 - [place] Andrew 496 784.0 305.1 Office Visit 08/08/2013 4:20p [facility] Internal Medicine Wallace Cabrales, 92868 272.2 - [place] M.DAbdifatah 276.1 Office Visit 07/19/2013 11:20a [facility] Internal Medicine Wallace Cabrales, 61529 784.0 - Dyana Morales 780.52 728.85 Office Visit 05/09/2013 3:20p [facility] Internal Medicine Wallace Cabrales M.D. 05924 496 - [place] 272.2 784.0 305.1 278.00 Office Visit 05/27/2012 8:30a [facility] Alexandru CelinaAbdifatah Hui, 09116 784.0 Services Of [facility] Andrew 723.1 Plan of Care Future Appointment(s):05/28/2018 9:30 am - Chuck Fiore M.D. at [facility] Ymsxryfu70/07/2018 8:40 am - Johnson Yoo NP at [facility] Internal Medicine [facility]05/21/2018 11:30 am - Sapna Torres MD at [facility]05/06/2018 - Sapna Torres MDZ01.811 Encounter for preprocedural respiratory examinationFollow up:2 vgshfsV12.9 Chronic obstructive pulmonary disease, bzdmreumnozY11.02 Hypoxemia
--- OUTSIDE RECORDS SUMMARY | 2018-05-08 22:06 | XMS REPORT ---
:1950 External Reference #:[id number] Author Organization [facility] Address [address] [place] [address] [place] [address] Phone [phone] Care Team Providers Name Role Phone Sabrina Pavon MD Primary Care Physician Unavailable Payers Type Date Identification Numbers Payment Provider Subscriber Commercial Effective: Policy Number: [id number] Aries Martel/Howard Alexandru Chopra 2016 Options PayID: [id number] [address] [address] Attn: [place] [address] [place] Part B Expires: 2016 Policy Number: [id number] Medicare Alexandru Chopra PayID: [id number] [address] [place] [address] Problems Date Description Provider Status Onset: 05/09/2013 [...] in D. each nostril Macqueen, every day M.D. Fluticasone 03/23 Active Suspension 50mcg/Act 48gm 1 spray each Johnson Propionate nostril SEAN Yoo daily as needed Proair HFA 03/11 Active Aerosol 108(90Bas 8.500 1 puff every Sapna e) gm 6 hours as Brian, mcg/Act needed Amlodipine 03/01 Active Tablets 10mg 30tab 1 by mouth Johnson Besylate s every day SEAN Yoo Oxycodone HCL 12/03 Active Tablets 5mg 30tab 1 by mouth Johnson /2017 s every 12 SEAN Yoo hours as needed headache Wheelchair 07/22 Active Misc 1unit lightweight J44.9 Kevin E. s folding pearl Greenchair Jose.Waqas dx: COPD, chronic dyspnea with exertion Shower Chair 12/26 Active use with J44.9 Kevin E. bathing for Norma, dyspnea sx M.D. Nebulizer 07/20 Active Kit 1unit use as Kevin E. Kit/Tubing/Mout /2014 s directed dx: michael Green j44.9 M.D. Gabapentin 01/12 Active Capsules 300mg 90cap Take One Kevin E. /2012 s Capsule By Norma, Mouth AT M.D. Bedtime Baclofen Active Tablets 10mg 90tab take 1/2 Kevin E. / s tablet by Norma, mouth twice M.D. daily or as needed Oxygen Active Misc 2 L Unknown continuously Benzonatate Active Capsules 100mg 90cap take 1 Johnson / s capsule by SEAN Yoo mouth every 4 hours as needed for cough Nortriptyline Active Capsules 10mg 90cap Take 1 Kevin E. HCL / s Capsule By Norma, Mouth AT M.D. Bedtime as Needed Butalbital/Acet Active Tablets 50-325-40 16tab take 1 R51 Johnson aminophen/Caffe /0000 mg s tablet by SEAN Yoo ine mouth twice a day *no more than 2 days/week* Anoro Ellipta Active Aerosol 62.5-25mc 1 inhalation Unknown /0000 g/Inh daily Tylenol Extra Active Tablets 500mg 2 by mouth Unknown Strength 0000 every 6 hours as needed Albuterol Active Nebulizer Via Unknown Sulfate nebulizer, as needed Omeprazole Active Capsules DR 20mg 60cap Take 2 Kevin E. / s Capsules By Norma, Mouth Daily M.D. AT 7:30Am Metoclopramide 04/22 Hx Tablets 5mg 30tab one tablet Johnson HCL s every 8 Fredo APPOINTMENT SCHEDULER - hours as 04/22 needed. Ondansetron 04/20 Hx Tablets 4mg 30tab dissolve one Johnson Dispers s tablet Fredo APPOINTMENT SCHEDULER - orally every 04/22 8 hours needed for nausea. Doxycycline 04/16 Hx Capsules 100mg 60cap 1 by mouth J32.2 Chuck Monohydrate /2017 s twice a day D. - with food Sherrillen, 05/03 M.D. Levofloxacin 04/15 Hx Tablets 500mg 10tab one by mouth J01.90 Johnson s daily for 10 Fredo, APPOINTMENT SCHEDULER - days 04/15 Moxifloxacin 04/15 Hx Tablets 400mg 10tab 1 tablet Johnson HCL /2017 s once daily x Fredo, APPOINTMENT SCHEDULER - 10 days - pt 04/16 never started Doxycycline 04/12 Hx Capsules 100mg 14cap one tablet J01.90 Johnson Hyclate /2017 s twice daily Fredo, APPOINTMENT SCHEDULER - for 7 days. 04/15 Doxycycline 03/30 Hx Capsules 100mg 20cap one tablet J01.90 Johnson Hyclate /2017 s twice daily Fredo, APPOINTMENT SCHEDULER - for 10 days. 04/09 Levofloxacin 03/26 Hx Tablets 500mg 10tab one by mouth J01.90 Johnson s daily for 10 Fredo, APPOINTMENT SCHEDULER - days 03/30 Levalbuterol 02/25 Hx Nebulizer 0.63mg/3M 225ml use 3-4x Sapna HCL /2018 L daily as Brian, - needed for MD 03/11 shortness of breath Albuterol 02/24 Hx Nebulizer 0.63mg/3M 675ml 1 unit, Sapna Sulfate /2017 L nebl, every Brian, - 6 hours, as 02/25 needed Levalbuterol 02/22 Hx Aerosol 45mcg/Act 15gm 2 puffs J44.9 Johnson Tartrate every 4-6 Fredo, APPOINTMENT SCHEDULER - hours as 03/11 needed for SOB Incruse Ellipta 02/20 Hx Aerosol 62.5mcg/I 30uni inhale one Sapna nh ts puff by Brian, - mouth every MD 02/25 day Incruse Ellipta 01/05 Hx Aerosol 62.5mcg/I 30uni inhale 1 Kevin E. nh ts puff by Norma, - mouth every M.D. Ibuprofen 11/11 Hx Tablets 600mg 90tab Take 1 Kevin E. s Tablet By Norma, - Mouth Twice M.D. 05/03 A Day Needed Lioresal 10MG 10/27 Hx Tablet 90tab Take 10/20. s Tablet By Norma, - Mouth Twice M.D. 02/18 Daily Or Needed--not currently taking Ipratropium 05/30 Hx Solution 0.5-2.5(3 90uni Inhale 1 Kevin E. Gardner/Albuter )mg/3ML ts Vial Via Norma, ol Sulfate - Nebulizer M.D. 02/18 Twice Daily as Needed For Shortness Of Breath Ipratropium 05/30 Hx Solution 0.5-2.5(3 540un Inhale 1 Kevin E. Gardner/Albuter )mg/3ML its Vial Via Norma, ol Sulfate - Nebulizer M.D. 02/18 Twice Daily as Needed For Shortness Of Breath Flomax 01/27 Hx Capsules 0.4mg 90cap 1 by mouth Z80.42 . s every day Eloisa Green.DAbdifatah 07/20 Atrovent HFA 11/20 Hx Aerosol 17mcg/Act 12.9u 1 unit, nits inhl, twice Norma, - a day M.D. 01/27 Incruse Ellipta 11/05 Hx Aerosol 62.5mcg/I 1unit 1 inhalation nh s every day Eloisa Green.DAbdifatah 11/20 Neomycin/Polymy 05/17 Hx Suspension 3.5-11428 1vial Finished 381.00 Anna kenan/Hydrocortis /2014 -1 [...] 100-25mcg 1unit 1 puff daily 496 Kevin EAbdifatah /2013 /Inh s Norma, - M.D. 02/13 Spiriva 09/12 Hx Capsules 18mcg 90cap Inhale 1 J44.9 Kevin Curran Handihale s Capsule (2 Norma, - Puffs) Via M.D. 02/18 Handihaler Once Daily AT The Same Time Every Day Duoneb 06/22 Hx Solution 0.5-2.5(3 90uni Inhale 1 Kevin EAbdifatah )mg/3ML ts Vial Via Norma, - Nebulizer M.D. 05/30 Twice Daily /2016 as Needed For Shortness Of Breath Advair HFA 06/07 Hx Aerosol 115-21mcg 12uni Inhale 2 J44.9 Kevin Curran /2013 /Act ts Puffs By Norma, - Mouth Twice M.D. 02/18 Daily. Rinse Mouth After Use. Symbicort 04/10 Hx Aerosol 160-4.5mc 1unit 2 puffs by Kevin EAbdifatah g/Act s mouth twice Norma, - a day M.D. 06/07 Fluticasone 08/03 Hx Suspension 50mcg/Act 32gm 1 spray each Kevin Curran nostril Norma, - daily as M.D. 02/18 needed Oxycodone HCL 02/25 Hx Tablets 5mg 30tab 1 by mouth Kevin EAbdifatah s every 12 Norma, - hours as M.D. 07/16 needed headache Fioricet 11/12 Hx Tablets 50-325-40 16tab 1 twice a Alexandru . mg s day max 2 [place], - days/week M.D. 05/09 Spiriva Hx Capsules 18mcg Unknown Handihaler / - 09/21 Fluticasone Hx Suspension 50mcg/Act Unknown Propionate /0000 - 08/03 Flovent HFA Hx Aerosol 110mcg/Ac 1unit 2 puffs bid Kevin E. /0000 t s Eloisa Green M.D. 09/11 Ibuprofen Hx Tablets 600mg 60tab Take 1 Kevin E. /0000 s Tablet By Norma, - Mouth Twice M.D. 09/07 A Day Needed Prednisone 00 Hx Tablets 20mg Take 2 Tabs Unknown /0000 Daily For 4 - Days, 1&1/2 11/29 Daily For Days, 1 Daily For 5 Da Ventolin HFA Hx Aerosol 108(90Bas 18uni Inhale 2 J44.9 Kevin E. /0000 e) ts Puffs By Norma, - mcg/Act Mouth 4 M.D. 02/17 Times Daily as Needed Levaquin Hx Tablets 750mg 1 tab by Unknown /0000 mouth daily - for 10 days 03/26 Xopenex Hx Nebulizer 1.25mg/0. q 2 hours as Unknown Concentrate /0000 5ML needed - 04/07 Prednisone 00 Hx Tablets 40mg Take 2 Unknown /0000 Tablets By - Mouth Daily 04/07 For 4 Days Then 1 Tablet For 4 Days (20MG) Ipratropium Hx Solution 0.02% Inhale Unknown Gardner /0000 Contents Of - 1 Vial Via 04/07 Every 4 Hours as Needed For S [...] 40 Millicuries Technetium TC Administered Injection Gerber Alan 99M Digna Zavala M.D. Tetrofosmin, Per Unit Dose Up To 40 Millicuries Immunizations CPT Code Status Date Vaccine Lot # [id number] Given 08/20/2017 Influenza Virus Vaccine, Quadrivalent, Split, Preservative Free 91561 Given 07/29/2016 Influenza Virus Vaccine, Quadrivalent, Split [id number] Virus, Im Use 91340 Given 07/17/2015 Influenza Virus Vaccine, Quadrivalent, Split, [id number] Preservative Free 73887 Given 09/12/2014 Pneumococcal Conjugate Vaccine 13 Valent For [id number] Intramuscular Use 05739 Given 08/23/2014 Flu Vaccine Split Virus Preservative Free For Indiv 3Yr Older [id number] Given 08/29/2013 Flu Vaccine NOS 27581 Given 09/10/2011 Pneumonia Vaccine 77568 Given 06/04/2011 Tdap - Tetanus/Diptheria/Acellular Pertussis Vital Signs Date Vital Result Comment 05/04/2018 Height 65 inches 5'5" Weight 144.00 [...] Test Date Test Result H/L Range Note Xray 04/29/2018 CT Sinuses W/O <pending> Inr/Protime 04/26/2018 Inr 1.05 High 0.77-1.02 Laboratory [...] Color Straw Urine Appearance Clear Urine Specific [place] 1.004 Low 1.010-1.030 Urine pH 7.0 5-9 [...] finding 12/07/2017 Occult Blood - Stool negative Laboratory test finding 09/01/2017 Lactic Acid 1.3 mmol/L 0.5-2.0 28 Troponin-I (TnI) 0.02 ng/mL <0.04 Arterial Blood Gas 09/01/2017 Fio2 3 Vent Mode Liters PH Arterial 7.38 7.35-7.45 Pco2 Arterial 72 mmHg High 35-45 29 Po2 Arterial 75 mmHg Low 80-100 O2 Saturation Arterial 97.4 % 95-98 Base Excess Arterial 13.4 High -2.0-2.0 30 Hco3 Arterial 35.2 mmol/L High 19-31 Comp Metabolic Panel 09/01/2017 Sodium 127 mmol/L [...] 22-32 32 Anion Gap 3 mmol/L 2-11 CBC Auto Diff 09/01/2017 White Blood Count [...] Inr 0.98 0.89-1.11 Laboratory test finding 09/01/2017 B-Type Natriuretic 33 pg/mL 33 Peptide BNP Lipid Profile 02/19/2017 Triglycerides 100 mg/dL 34 [...] Non- 84.7 >60 Egfr 108.9 >60 54 Comp Metabolic Panel 07/19/2013 Sodium 132 mmol/L [...] Egfr Non- 113.2 >60 Egfr 145.6 >60 55 Lipid Profile (Trig/Chol/HDL) 07/19/2013 Triglycerides 105 mg/dL 40-200 Cholesterol 209 mg/dL High Less than 200 HDL Cholesterol 36 mg/dL Low 40-60 56 Cholesterol/HDL Ratio 5.8 Average High 1-4.44 LDL Cholesterol 152.0 High Less Than [address] [facility] Severe Sepsis and Septic Shock Management [...] (or dialysis) 3 Result TnIDx:0.04 Called to [id number] at: 16:06:37 by:[id number] Read back by: [id number] 4 SEE RESULT BELOW Name: ALEXANDRU CHOPRA : [address]: Estuardo Covarrubias MD Acct: [id number] Unit: [id number] AGE: 68 Location: [place] [address] Re04/26/18 Dis: 04/28/18 SEX: M Status: DIS Rut SPEC: [id number] DARBY: 04/26/18-[address]: Dede CABRAL REQ: [id number] RECD: 04/26/18 STATUS: MANDEEP RODRIGUEZ DR: Johnson Chavarria MD _ SOURCE: BLOOD,VENO SPDESC: ORDERED: Blood Cult COMMENTS: Reason for Exam: fever, abd pain Procedure Result Reported Site Aerobic Culture Bottle Final 05/01/18- 1522 ML No Growth Day 5 Anaerobic Culture Bottle Final 05/01/18- 1522 ML No Growth Day 5 * ML - Main Lab . END OF REPORT DEPARTMENT OF PATHOLOGY, [address] [place] [address] Joselo Jamil M.D. Director [facility] # [id number] 5 Because ethnic data is not always [...] in selective patients <6.0%. Please refer to [employer] Association diabetic care guidelines for further information. 7 SEE RESULT BELOW Name: CHOPRAALEXANDRU : [address]: Mindy Kunz MD Acct: [id number] Unit: [id number] AGE: 67 Location: [place] [address] Re02/11/18 SEX: M Status: ADM IN SPEC: [id number] DARBY: 02/11/18 [facility] DR: Sang Gutierrez MD REQ: [id number] RECD: 02/11/18 STATUS: MANDEEP RODRIGUEZ DR: Kevin Green III, MD _ SOURCE: URINE SPDESC: ORDERED: Urine Culture Procedure Result Reported Site Urine Culture Final 02/12/18- 0923 ML No Growth (<1,000 CFU/mL) * ML - Main Lab . END OF REPORT DEPARTMENT OF PATHOLOGY, [address] [place] [address] Joselo Jamil M.D. Director [facility] # [id number] 8 Verbal to [id number] by [id number] at 2243 on 02/10/18. Results read back accurately. 9 Reference ranges based on room air. 10 [facility] Severe Sepsis and Septic Shock Management [...] pg/mL: likely moderate to severe CHF 15 Masticator: [id number] 16 Verbal to [id number] by [id number] at 1231 on 02/08/18. Results read back accurately. 17 Reference ranges based on room air. 18 SEE RESULT BELOW Name: CHOPRAALEXANDRU : [address]: Kelly Kaur MD Acct: [id number] Unit: [id number] AGE: 67 Location: [place] Re02/08/18 SEX: M Status: REG ER SPEC: [id number] DARBY: 02/08/18-1140 [facility] DR: Kelly Kaur MD REQ: [id number] RECD: 02/08/18 STATUS: MANDEEP [facility] DR: Kevin Green III, MD _ SOURCE: [facility]: ORDERED: Flu A B Request Procedure Result Reported Site Rapid Influenza A B Request Final 02/08/18- 1211 ML Specimen received for Influenza A/B Molecular testing * ML - Main Lab . END OF REPORT DEPARTMENT OF PATHOLOGY, [address] [place] [address] Joselo Jamil M.D. Director [facility] # [id number] 19 SEE RESULT BELOW Name: ALEXANDRU CHOPRA : [address]: Kelly Kaur MD Acct: [id number] Unit: [id number] AGE: 67 Location: [place] Re02/08/18 SEX: M Status: DEP ER SPEC: [id number] DARBY: 02/08/[address]: Kelly Kaur MD REQ: [id number] RECD: 02/08/18 STATUS: MANDEEP RODRIGUEZ DR: Kevin Green III, MD _ SOURCE: BLOOD,VENO SPDESC: ORDERED: Blood Cult COMMENTS: Patient is On Antibiotics? YES Procedure Result Reported Site Aerobic Culture Bottle Final 02/13/181158 ML No Growth Day 5 Anaerobic Culture Bottle Final 02/13/181158 ML No Growth Day 5 * ML - Main Lab . END OF REPORT DEPARTMENT OF PATHOLOGY, [address] [place] [address] Joselo Jamil M.D. Director [facility] # [id number] 20 [facility] Severe Sepsis and Septic Shock Management [...] severe CHF 23 Interpretive information available on [employer] Test Catalog at [email or web address] 24 Because ethnic data is not always [...] failure <15 (or dialysis) 25 Verbal to [id number] by [id number] at 1204 on 02/08/18. Results read back accurately. 26 Acute inflammation: >10.00 27 Critical Result CO2:42 Called to [id number] at: 12:04:32 by:[id number] Read back by:[id number] 28 [facility] Severe Sepsis and Septic Shock Management Bundle Measure requires all lactic acids initially measuring >2.0 mmol/L be repeated. 29 Verbal to [id number] by [id number] at 1343 on 09/01/17. Results read back accurately. 30 Reference ranges based on room air. 31 Because ethnic data is not always [...] dialysis) 32 Critical Result CO2:42 Called to [id number] at: 12:23:54 by:[id number] Read back by:[id number] 33 >100 to <200 pg/mL: likely compensated [...] Serum levels of PSA measured using the [employer] ASA DXI Hybritech immunoassay should not be interpreted [...] and in selective patients <6.0%.Please refer to [place] Diabetes Association Diabetic care guidelines for further [...] Serum levels of PSA measured using the [employer] ASA DXI Hybritech immunoassay should not be interpreted [...] 7 L um3 53 RUN DATE: 12/06/13 [facility] LAB LIVE PAGE 1 RUN TIME: [address] [place], [place] [address] Specimen Inquiry Name: ALEXANDRU CHOPRA Juju : [address]: Ishaan Maki MD Acct: [id number] Unit: [id number] AGE: 63 Location: [facility] Re12/05/13 SEX: M Status: REG REF SPEC: [id number] DARBY: 12/05/13- SUBM DR: Ishaan Maki MD REQ: [id number] RECD: 12/05/13 STATUS: CONG RODRIGUEZ DR: Kevin Green III, [...] specimen is received in formalin labeled Alexandru Chopra, Rectal Polyp at 3 cm. Biopsy, and consists of a 0.4 x 0.3 x 0.2 cm. joyce-red polypoid soft tissue fragment which is submitted entirely, one cassette. Signed (signature on file) Joselo Jamil MD 6236 END OF REPORT * ML=Testing performed at Main Lab DEPARTMENT OF PATHOLOGY, [address] [place] [address] Joselo Jamil M.D. Director [facility] Permit #[id number] 54 Because ethnic data is not always [...] 5 Kidney failure <15 (or dialysis) 55 Because ethnic data is not always readily [...] 15-29 5 Kidney failure <15 (or dialysis) 56 HDL Interpretation: Undesirable: High Risk: Less than 40 mg/dL Desirable: Low Risk: Greater than 60 mg/dL 57 LDL Interpretation: Low Risk Optimal Level: LDL Less than 100 mg/dL Near or Above Optimal: LDL 100-129 mg/dL Borderline High Risk: LDL 130-159 mg/dL High Risk: LDL 160-189 mg/dL Very High Risk: LDL Greater than 189 mg/dL Procedures Date CPT Code Description Status Comment 03/11/2018 72014 Diffusing Capacity Completed 03/11/2018 75655 Plethysmography Determination Lung Completed Volumes & Per Airway Resist 03/11/2018 54791 Pulmonary Stress Testing, Inc Measurement Completed Heart Rate, Oximetry 03/11/2018 20411 Pulmonary Function><Bronchodil Completed 02/11/2018 55011 ECHO Transthorasic Realtime 2D W Doppler Completed & Color Flow Hosp 08/06/2016 69680 Stress Test Completed 08/06/2016 16300 Myocardial Perfusion Imaging Tomographic Completed (Spect) Multiple Studies 08/01/2016 14248 ECHO Transthoracic, Real-Time 2D With Completed Doppler And Color Flow 07/30/2016 00525 Holter Monitor Review (24 hr) review & Completed interp only 07/29/2016 94666 ECG Monitor/Recording W/Visual Completed Superimposition Scanning 09/25/2014 68945 Diffusing Capacity Completed 09/25/2014 51003 Plethysmography Determination Lung Completed Volumes & Per Airway Resist 09/25/2014 87806 Pulmonary Function><Bronchodil Completed 12/05/2013 Colonoscopy Completed 10/19/2010 Colonoscopy Completed Colon polyps Encounters Type Date Location Provider CPT E/M Dx [facility] [place]isa GoldBety, [address] R53.1 3:14p [facility] [place] R51 J44.9 J32.9 Office Visit 04/26/2018 1:20p [facility] Chuck Fiore, 36463 J32.9 Infectious Diseases M.D. R63.0 R63.4 R31.9 R53.1 Office Visit 04/22/2018 10:40a [facility] [place] [address] R10.9 Dyana J32.1 J32.2 R63.1 Office Visit 04/16/2018 10:10a [facility] Chuck Fiore, [address] J32.2 Infectious Diseases M.DAbdifatah J32.1 Office Visit 04/08/2018 9:15a [facility] [address] J44.9 Services Of [facility] J96.10 Office Visit 03/26/2018 4:00p [facility] [place] [address] J01.90 Dyana R04.2 Office Visit 02/22/2018 2:40p [facility] [place] [address] Z87.891 Dyana J44.9 Office Visit 02/18/2018 1:45p [facility] [address] J44.9 Services Of [facility] R09.02 Z87.891 Office Visit 02/15/2018 8:38a [facility], [place] [address] J44.1 Hospitalists I10 A49.8 Office Visit 02/15/2018 2:30p [facility] [address] J44.1 Services Of [facility] F17.201 R06.02 R09.02 Z99.81 Office Visit 02/14/2018 8:37a [facility]oc, [place] [address] J44.1 Hospitalists I10 A49.8 Office Visit 02/13/2018 8:35a [facility], Mindy Kunz, 55919 J44.1 Hospitalists Andrew I10 Office Visit 02/13/2018 2:30p [facility] [address] J44.1 Services Of [facility] F17.201 R06.02 Z99.81 Office Visit 02/12/2018 8:29a [facility] Mindy Kunz, [address] J44.1 Hospitalists Andrew I10 Office Visit 02/11/2018 8:11a [facility] [place], [address] J44.1 Assoc, Hospitalists Andrew I10 Office Visit 02/11/2018 12:00p Pul[facility] [address] F17.201 Services Of [facility] J44.1 J96.11 J96.12 Office Visit 11/30/2017 3:20p [facility] Kevin Green, 42856 R10.13 - Mathieu Morales G43.C0 J44.9 Office Visit 09/09/2017 2:00p [facility] Kevin Green, 00259 R10.13 - Mathieu Morales J44.1 Office Visit 09/04/2017 [facility] Maria R Real, 65577 J96.02 10:58a Assoc, APPOINTMENT SCHEDULER Hospitalists J44.1 R10.13 Z72.0 Office Visit 09/03/2017 [facility] Maria R Real, 85841 J96.02 10:57a Assoc, APPOINTMENT SCHEDULER Hospitalists J44.1 R10.13 Z72.0 Office Visit 09/03/2017 3:31p [place] [address] R10.13 J44.1 G43.C0 Office Visit 09/02/2017 10:57a [facility] Diana King, 8[address] J96.02 Hospitalists N.PAbdifatah J44.1 R10.13 Z72.0 Office Visit 09/01/2017 10:56a [facility] Diana King, 23100 J96.02 Hospitalists N.PAbdifatah J44.1 Z72.0 Office Visit 07/22/2017 2:40p [facility] Kevin Green, 796[address] J44.9 - Mathieu Morales S06.0x9D Office Visit 02/23/2017 3:00p [facility] Kevin Green, 92526 Z00.00 - Mathieu Morales J44.9 E78.2 F17.210 R60.0 Office Visit 01/28/2016 1:00p [facility] Kevin Green, 62610 Z00.00 - Dyana Morales J44.9 F17.210 Z80.42 E78.2 R73.01 Z23 R35.0 Office Visit 07/17/2015 2:40p [facility] Kevin Green, 00893 J44.9 - Dyana Morales F17.210 Z12.2 Z23 Office Visit 05/17/2015 12:40p [facility] - Anna Jin 10164 381.00 Dyana Morales Office Visit 03/02/2015 9:30a [facility] [address] Services Of [facility] 305.1 278.00 Office Visit 02/13/2015 9:00a [facility] Kevin Green, 06147 496 Dyana Morales Office Visit 10/06/2014 2:00p [facility] [address] Services Of [facility] 305.1 278.00 780.59 Office Visit 09/12/2014 3:40p [facility] Kevin Green, 44597 496 Dyana Morales v03.82 Office Visit 06/07/2014 9:00a [facility] Kevin Green, 10312 V70.0 - Dyana Morales 496 272.2 784.0 V73.89 V16.42 V81.2 Office Visit 04/10/2014 3:40p [facility] Kevin Green, 01915 496 Dyana Morales 784.0 Office Visit 12/08/2013 10:00a [facility] Kevin Green, 11102 272.2 - Dyana Morales 496 784.0 305.1 Office Visit 08/08/2013 4:20p [facility] Wallace Cabrales, 80387 272.2 - Dyana Morales 276.1 Office Visit 07/19/2013 11:20a [facility] Wallace Cabrales, 13994 784.0 - Dyana Morales 780.52 728.85 Office Visit 05/09/2013 3:20p [facility] Wallace Cabrales M.D. 67004 496 - Dyana 272.2 784.0 305.1 278.00 Office Visit 05/27/2012 8:30a [facility] Alexandru Hui, 60801 784.0 Services Of Yi Morales 723.1 Plan of Care Future Appointment(s):05/28/2018 9:30 am - Chuck Fiore M.D. 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
--- OUTSIDE RECORDS SUMMARY | 2018-05-08 22:07 | XMS REPORT ---
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 [address] [place] [address] Problems Date Description Provider Status Onset: 02/05/2018 Chronic sphenoidal sinusitis John Ramey MD Active Onset: 02/05/2018 Headache John Ramey MD Active Family History Date Family Member(s) Problem(s) Comments General Cancer General Heart Attack Social History Type Date Description Comments Occupation Retired Cigarette Use Former Cigarette Smoker 1 1/2 Packs x 50 yrs, quit age 67 Daily Cigars Never Smoked Cigars Pipe Never Smoked A Pipe Smokeless Tobacco Never Used Smokeless Tobacco ETOH Use Denies alcohol use Allergies, Adverse Reactions, Alerts Date Description Reaction Status Severity Comments 02/05/2018 NKDA active Medications Medication Date Status Form Strength Qnty SIG Indications Ordering Provider Prednisone Active Tablets 20mg 10tabs 20mg by J32.3 John 018 mouth one Ruparelia, per day in MD in the morning Incruse Active Aerosol 62.5mcg/Inh 30unit inhale 1 Norma Ellipuvaldo 018 s puff by Kevin CHUN mouth every day Oxycodone HCL Active Tablets 5mg 30tabs 1 by mouth Norma, 018 every 12 Kevin CHUN hours as needed headache Lioresal Active Tablets 10mg 90tabs Take 10/20 Norma, 018 Tablet By Kevin CHUN Mouth Twice Daily Or as Needed--not currently taking Amoxicillin/C Hx Tablets 875-125mg 30tabs 1 by mouth JLinda.3 John lavulanate 018 - twice a day Ruparelia, Potassium with food MD Resendiz Prednisone Hx Tablets 20mg 10tabs 20mg by Alexis Lopez 018 - mouth one Tanvir, per day in MD Resendiz in the morning Ibuprofen Hx Tablets 600mg 90tabs Take 1 Norma, 018 - Tablet By Kevin CHUN Mouth Twice 018 A Day as Needed Vital Signs Date Vital Result Comment 04/30/2018 Weight 144.00 lb Weight in kg's 65.318 Height 65 inches 5'5" Height in cm's 165.1 cm BMI (Body Mass Index) 24.0 kg/m2 02/05/2018 Weight 166.00 lb Weight in kg's 75.298 Height 65 inches 5'5" Height in cm's 165.1 cm BMI (Body Mass Index) 27.6 kg/m2 Results Description No Information Procedures Date CPT Code Description Status 04/30/2018 15220 Nasal Endoscopy, Diagnostic Completed Encounters Type Date Location Provider CPT E/M Dx Office Visit 04/30/2018 11:45a [facility] 10/19/07 [place] [address] D48.1 J32.3 Office Visit 02/05/2018 10:00a [facility] 10/19/07 [place] [address] J32.3 R51 Plan of Care 04/30/2018 - Jhon Ramey MDD48.1 Neoplasm of uncertain behavior of connctv/ soft tissNew Xrays:CT sinus with brain lab [id number] Chronic sphenoidal sinusitisNew Medication:Prednisone 20 mgNew Xrays:CT sinus with brain lab protocolComments:Chronic sphenoid and ethmoid sinuses. Opacification. 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 Once he gets medical clearance I think it be candidate for biopsy and possible's ethmoidectomy and sphenoid sinusotomy.This should be done under image guidance.In the meantime he is going to start oral steroids. He is going to follow with his primary care physician to see if he can get medically cleared for his COPD.
--- OUTSIDE RECORDS SUMMARY | 2018-05-08 22:07 | XMS REPORT ---
:1950 External Reference #:[id number] Author Organization [facility] Address [address] [place] [address] [place] [address] Phone [phone] Care Team Providers Name Role Phone Sabrina Pavon MD Primary Care Physician Unavailable Payers Type Date Identification Numbers Payment Provider Subscriber Commercial Effective: Policy Number: [id number] Aries Martel/Howard Alexandru Chopra 2016 Options PayID: [id number] [address] [address] Attn: [place] [address] [place] Part [place] Expires: 2016 Policy Number: [id number] Medicare Alexandru Chopra PayID: [id number] [address] [place] [address] Problems Date Description Provider Status Onset: 05/09/2013 Chronic obstructive lung disease Wallace Cabrales M.D. Active Onset: 05/09/2013 Mixed hyperlipidemia Wallace Cabrlaes M.D. Active Onset: 05/09/2013 Headache Wallace Cabrales M.D. Active Onset: 05/09/2013 Tobacco user Wallace Cabrales M.D. Active Onset: 05/09/2013 Obesity Wallace Cabrales M.D. Active Onset: 07/19/2013 Insomnia Wallace Cabrales M.D. Active Onset: 07/19/2013 Spasm Wallace Cabrales M.D. Active Onset: 08/08/2013 Hypo-osmolality and or hyponatremia Wallace Cabrales M.D. 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 each nostril Macqueen, every day M.D. Fluticasone 03/23 Active Suspension 50mcg/Act 48gm 1 spray each Johnson Propionate nostril Fredo, POWDER LINE REPAIRER daily as needed Proair HFA 03/11 Active Aerosol 108(90Bas 8.500 1 puff every Sapna e) gm 6 hours as Brian, mcg/Act needed Amlodipine 03/01 Active Tablets 10mg 30tab 1 by mouth Johnson Besylate s every day Fredo, POWDER LINE REPAIRER Oxycodone HCL 12/03 Active Tablets 5mg 30tab 1 by mouth Johnson /2017 s every 12 Fredo, POWDER LINE REPAIRER hours as needed headache Wheelchair 07/22 Active Misc 1unit lightweight J44.9 Kevin E. s folding papa Green M.D. dx: COPD, chronic dyspnea with exertion [...] 10mg 90cap Take 1 Kevin E. HCL /0000 s Capsule By Norma, Mouth AT M.D. Bedtime as Needed Butalbital/Acet Active Tablets 50-325-40 16tab take 1 R51 Johnson aminophen/Caffe /0000 mg s tablet by SEAN Yoo ine mouth twice a day *no more than 2 days/week* Anoro Ellipta Active Aerosol 62.5-25mc 1 inhalation Unknown /0000 g/Inh daily Tylenol Extra Active Tablets 500mg 2 by mouth Unknown Strength /0000 every 6 hours as needed Albuterol Active Nebulizer Via Unknown Sulfate nebulizer, as needed Omeprazole Active Capsules DR 20mg 60cap Take 2 Kevin E. / s Capsules By Norma, Mouth Daily M.D. AT 7:30Am Metoclopramide 04/22 Hx Tablets 5mg 30tab one tablet Johnson HCL /2017 s every 8 SEAN Yoo - hours as 04/22 needed. Ondansetron 04/20 Hx Tablets 4mg 30tab dissolve one Johnson /2017 Dispers s tablet SEAN Yoo - orally every 04/22 8 hours needed for nausea. Doxycycline 04/16 Hx Capsules 100mg 60cap 1 by mouth J32.2 Chuck Monohydrate s twice a day D. - with food Macqueen, 05/03 M.D. /2017 Levofloxacin 04/15 Hx Tablets 500mg 10tab one by mouth J01.90 Johnson /2018 s daily for 10 Fredo, POWDER LINE REPAIRER - days 04/15 Moxifloxacin 04/15 Hx Tablets 400mg 10tab 1 tablet Johnson HCL /2017 s once daily x Fredo, POWDER LINE REPAIRER - 10 days - pt 04/16 started Doxycycline 04/12 Hx Capsules 100mg 14cap one tablet J01.90 Johnson Hyclate s twice daily Fredo, POWDER LINE REPAIRER - for 7 days. 04/15 Doxycycline 03/30 Hx Capsules 100mg 20cap one tablet J01.90 Johnson Hyclate s twice daily Fredo, POWDER LINE REPAIRER - for 10 days. 04/09 Levofloxacin 03/26 Hx Tablets 500mg 10tab one by mouth J01.90 Johnson s daily for 10 Fredo, POWDER LINE REPAIRER - days 03/30 Levalbuterol 02/25 Hx Nebulizer 0.63mg/3M 225ml use 3-4x Sapna HCL /2017 L daily as Brian, - needed for MD 03/11 shortness of breath Albuterol 02/24 Hx Nebulizer 0.63mg/3M 675ml 1 unit, Sapna Sulfate /2017 L nebl, every Brian, - 6 hours, as MD 02/25 needed Levalbuterol 02/22 Hx Aerosol 45mcg/Act 15gm 2 puffs J44.9 Johnson Tartrate every 4-6 Fredo, POWDER LINE REPAIRER - hours as 03/11 needed for SOB Incruse Ellipta 02/20 Hx Aerosol 62.5mcg/I 30uni inhale one Sapna nh ts puff by Brian, - mouth every MD Incruse Ellipta 01/05 Hx Aerosol 62.5mcg/I 30uni inhale 1 Kevin E. nh ts puff by Norma, - mouth every M.D. Ibuprofen 11/11 Hx Tablets 600mg 90tab Take 1 Kevin E. s Tablet By Norma, - Mouth Twice M.D. 05/03 A Day Needed Lioresal 10MG 10/27 Hx Tablet 90tab Take 1/2 Kevin E. s Tablet By Norma, - Mouth Twice M.D. 02/18 Daily Or Needed--not currently taking Ipratropium 05/30 Hx Solution 0.5-2.5(3 90uni Inhale 1 Kevin E. [place]/Albuter )mg/3ML ts Vial Via Norma, ol Sulfate - Nebulizer M.D. 02/18 Twice Daily as Needed For Shortness Of Breath Ipratropium 05/30 Hx Solution 0.5-2.5(3 540un Inhale 1 Kevin E. [place]/Albuter )mg/3ML its Vial Via Norma, ol Sulfate - Nebulizer M.D. 02/18 Twice Daily as Needed For Shortness Of Breath Flomax 01/27 Hx Capsules 0.4mg 90cap 1 by mouth Z80.42 . /2015 s every day Eloisa Green M.D. 07/20 Atrovent HFA 11/20 Hx Aerosol 17mcg/Act 12.9u 1 unit, . /2015 nits inhl, twice Norma, - a day M.D. 01/27 Incruse Ellipta 11/05 Hx Aerosol 62.5mcg/I 1unit 1 inhalation . /2015 nh s every day Eloisa Green M.DAbdifatah 11/20 Neomycin/Polymy 05/17 Hx Suspension 3.5-27592 1vial Finished 381.00 Anna kenan/Hydrocortis /2014 -1 tammy Jin - M.D. 07/16 [facility] NTS Step 1 03/02 Hx Patches 21mg/24HR 30uni 1 pach 305.1 Sapna /2015 24HR ts topically Brian, - every day 05/17 [facility] Nicotine 03/02 Hx Gum 4mg 60uni not taking F17.210 Sapna Polacrilex /2014 ts 1 gum, every Brian, - 6 hours as 01/27 needed Nicotine 10/06 Hx Patches 21mg/24HR 30uni 1 patch over 305.1 Kevin Curran 24HR ts skin every Norma, - day M.D. 05/17 Nicotine 10/06 Hx Gum 2mg 60uni 1 gum every 305.1 Kevin Curran Polacrilex /2013 ts 6 hours as Norma - needed M.D. 05/17 Breo Ellipta 09/12 Hx Aerosol 100-25mcg 1unit 1 puff daily 496 Kevin E. /2013 /Inh s Norma, - M.D. 02/13 Spiriva 09/12 Hx Capsules 18mcg 90cap Inhale 1 J44.9 Kevin EAbdifatah Handale s Capsule (2 Norma, - Puffs) Via M.D. 02/18 Handihaler Once Daily AT The Same Time Every Day Duoneb 06/22 Hx Solution 0.5-2.5(3 90uni Inhale 1 Kevin E. /2013 )mg/3ML ts Vial Via Norma, - Nebulizer M.D. 05/30 Twice Daily /2016 as Needed For Shortness Of Breath Advair HFA 06/07 Hx Aerosol 115-21mcg 12uni Inhale 2 J44.9 Kevin EAbdifatah /2013 /Act ts Puffs By Norma, - Mouth Twice M.D. 02/18 Daily. Rinse Mouth After Use. Symbicort 04/10 Hx Aerosol 160-4.5mc 1unit 2 puffs by Kevin EAbdifatah /2013 g/Act s mouth twice Norma, - a day M.D. 06/07 Fluticasone 08/03 Hx Suspension 50mcg/Act 32gm 1 spray each Abdifatah nostril Norma, - daily as M.D. 02/18 needed Oxycodone HCL 02/25 Hx Tablets 5mg 30tab 1 by mouth Kevin Abdifatah /2012 s every Norma, - hours as M.D. 07/16 needed headache Fioricet 11/12 Hx Tablets 50-325-40 16tab 1 twice a Alexandru S. /2012 mg s day max 2 Sandoval, - days/week M.D. 05/09 Spiriva Hx Capsules 18mcg Unknown Handihaler / - 09/21 Fluticasone Hx Suspension 50mcg/Act Unknown Propionate /0000 - 08/03 Flovent HFA Hx Aerosol 110mcg/Ac 1unit 2 puffs bid Kevin E. / t s Norma, - M.D. 09/11 Ibuprofen 00/00 Hx Tablets 600mg 60tab Take 1 Kevin E. /0000 s Tablet By Norma, - Mouth Twice M.D. 09/07 A Day Needed Prednisone Hx Tablets 20mg Take 2 Tabs Unknown /0000 Daily For 4 - Days, 1&1/2 11/29 Daily For Days, 1 Daily For 5 Da Ventolin HFA Hx Aerosol 108(90Bas 18uni Inhale 2 J44.9 Kevin E. /0000 e) ts Puffs By oNrma, - mcg/Act Mouth 4 M.D. 02/17 Times [...] (20MG) Ipratropium Hx Solution 0.02% Inhale Unknown [place] /0000 Contents Of - 1 Vial Via 04/07 Every 4 Hours as Needed For S Levalbuterol Hx Nebulizer 1.25mg/0. Inhale 1 Unknown HCL /0000 5ML Vial Via - Nebulizer 02/25 Every Hours as Needed For Dyspnea Medications Administered in Office Medication Date Status Form Strength Qnty SIG Indications Ordering Provider Inj, Administered Injection Gerber Alan Regadenoson, 016 Andrew Zavala 0.1 MG Technetium TC Administered Injection Gerber DAbdifatah 99M 016 Andrew Zavala Tetrofosmin, Per Unit Dose Up To 40 Millicuries Technetium TC Administered Injection Gerber DAbdifatah 99M 016 Andrew Zavala Tetrofosmin, Per Unit Dose Up To 40 Millicuries Immunizations CPT Code Status Date Vaccine Lot # [id number] Given 08/20/2017 Influenza Virus Vaccine, Quadrivalent, Split, Preservative Free 69167 Given 07/29/2016 Influenza Virus Vaccine, Quadrivalent, Split [id number] Virus, Im Use 97610 Given 07/17/2015 Influenza Virus Vaccine, Quadrivalent, Split, [id number] Preservative Free 32918 Given 09/12/2014 Pneumococcal Conjugate Vaccine 13 Valent For [id number] Intramuscular Use 25594 Given 08/23/2014 Flu Vaccine Split Virus Preservative Free For Indiv 3Yr Older [id number] Given 08/29/2013 Flu Vaccine NOS 07151 Given 09/10/2011 Pneumonia Vaccine 01620 Given 06/04/2011 Tdap - Tetanus/Diptheria/Acellular Pertussis Vital Signs Date Vital Result Comment 05/03/2018 Height 65 inches 5'5" Weight 144.00 [...] Color Straw Urine Appearance Clear Urine Specific [place] 1.004 Low 1.010-1.030 Urine pH 7.0 5-9 [...] 152.0 High Less Than 100 57 1 [facility] Severe Sepsis and Septic Shock Management [...] (or dialysis) 3 Result TnIDx:0.04 Called to [id number] at: 16:06:37 by:[email or web address] Read back by: [id number] 4 SEE RESULT BELOW Name: ALEXANDRU CHOPRA : [address]: Estuardo Covarrubias MD Acct: [id number] Unit: [id number] AGE: 68 Location: [address] Re04/26/18 Dis: 04/28/18 SEX: M Status: DIS Rut SPEC: [id number] DARBY: 04/26/18-1516 [facility] DR: Dede CABRAL REQ: [id number] RECD: 04/26/18 STATUS: MANDEEP RODRIGUEZ DR: Johnson Chavarria MD _ SOURCE: BLOOD,VENO SPDESC: ORDERED: Blood Cult COMMENTS: Reason for Exam: fever, abd pain Procedure Result Reported Site Aerobic Culture Bottle Final 05/01/18- 1522 ML No Growth Day 5 Anaerobic Culture Bottle Final 05/01/18- 1522 ML No Growth Day 5 * ML - Main Lab . END OF REPORT DEPARTMENT OF PATHOLOGY, [address] [place] [address] Joselo Jamil M.D. Director [facility] # [id number] 5 Because ethnic data is not always [...] in selective patients <6.0%. Please refer to [employer] diabetic care guidelines for further information. 7 SEE RESULT BELOW Name: ALEXANDRU CHOPRA : [address]: Mindy Kunz MD Acct: [id number] Unit: [id number] AGE: 67 Location: [place] [address] Re02/11/18 SEX: M Status: ADM IN SPEC: [id number] DARBY: 02/11/[address]: Sang Gutierrez MD REQ: [id number] RECD: 02/11/18 STATUS: MANDEEP RODRIGUEZ DR: Kevin Green III, MD _ SOURCE: URINE SPDESC: ORDERED: Urine Culture Procedure Result Reported Site Urine Culture Final 02/12/18- 0923 ML No Growth (<1,000 CFU/mL) * ML - Main Lab . END OF REPORT DEPARTMENT OF PATHOLOGY, [address] [place] [address] Joselo Jamil M.D. Director [facility] # [id number] 8 Verbal to [id number] by [id number] at 2243 on 02/10/18. Results read back accurately. 9 Reference ranges based on room air. 10 [facility] Severe Sepsis and Septic Shock Management [...] pg/mL: likely moderate to severe CHF 15 Balancing Machine Set Up Worker: [id number] 16 Verbal to [id number] by [id number] at 1231 on 02/08/18. Results read back accurately. 17 Reference ranges based on room air. 18 SEE RESULT BELOW Name: NOYALEXANDRU Juju : [address]: Kelly Kaur MD Acct: [id number] Unit: [id number] AGE: 67 Location: ED Re02/08/18 SEX: M Status: REG ER SPEC: [id number] DARBY: 02/08/18-1140 [facility] DR: Kelly Kaur MD REQ: [id number] RECD: 02/08/18 STATUS: MANDEEP RODRIGUEZ DR: Kevin Green III, MD _ SOURCE: [facility]: ORDERED: Flu A B Request Procedure Result Reported Site Rapid Influenza A B Request Final 02/08/18- 1211 ML Specimen received for Influenza A/B Molecular testing * ML - Main Lab . END OF REPORT DEPARTMENT OF PATHOLOGY, [address] [place] [address] Joselo Jamil M.D. Director [facility] # [id number] 19 SEE RESULT BELOW Name: ALEXANDRU CHOPRA : [address]: Kelly Kaur MD Acct: [id number] Unit: [id number] AGE: 67 Location: ED Re02/08/18 SEX: M Status: DEP ER SPEC: [id number] DARBY: 02/08/18 [facility] DR: Kelly Kaur MD REQ: [id number] RECD: 02/08/18 STATUS: MANDEEP RODRIGUEZ DR: Kevin Green III, MD _ SOURCE: BLOOD,VENO SPDESC: ORDERED: Blood Cult COMMENTS: Patient is On Antibiotics? YES Procedure Result Reported Site Aerobic Culture Bottle Final 02/13/181158 ML No Growth Day 5 Anaerobic Culture Bottle Final 02/13/181158 ML No Growth Day 5 * ML - Main Lab . END OF REPORT DEPARTMENT OF PATHOLOGY, [address] [place] [address] Joselo Jamil M.D. Director [facility] # [id number] [facility] Severe Sepsis and Septic Shock Management Bundle [...] severe CHF 23 Interpretive information available on [employer] Lab Test Catalog at [email or web address] 24 Because ethnic data is not always [...] failure <15 (or dialysis) 25 Verbal to [id number] by [id number] at 1204 on 02/08/18. Results read back accurately. 26 Acute inflammation: >10.00 27 Critical Result CO2:42 Called to [id number] at: 12:04:32 by:[id number] Read back by:[id number] 28 [facility] Severe Sepsis and Septic Shock Management Bundle Measure requires all lactic acids initially measuring >2.0 mmol/L be repeated. 29 Verbal to [id number] by [id number] at 1343 on 09/01/17. Results read back [...] dialysis) 32 Critical Result CO2:42 Called to [id number] at: 12:23:54 by:[id number] Read back by:[id number] 33 >100 to <200 pg/mL: likely compensated [...] Serum levels of PSA measured using the allyve DXI Hybritech immunoassay should not be interpreted [...] and in selective patients <6.0%.Please refer to [employer] Diabetic care guidelines for further [...] levels of PSA measured using the [employer] DXI Hybritech immunoassay should not be interpreted [...] 7 L um3 53 RUN DATE: 12/06/13 [facility] LAB LIVE PAGE 1 RUN TIME: [address] [place] [address] Specimen Inquiry Name: ALEXANDRU CHOPRA : [address]: Ishaan Maki MD Acct: [id number] Unit: [id number] AGE: 63 Location: [facility] Re12/05/13 SEX: M Status: REG REF SPEC: [id number] DARBY: 12/05/13- [facility] DR: Ishaan Maki MD REQ: [id number] RECD: 12/05/13 STATUS: CONG RODRIGUEZ DR: Kevin [...] performed at Main Lab DEPARTMENT OF PATHOLOGY, [address] [place] [address] Joselo Jamil M.D. Director [facility] Permit #[id number] 54 Because ethnic data is not always [...] Date CPT Code Description Status Comment 03/11/2018 45924 Diffusing Capacity Completed 03/11/2018 62727 Plethysmography Determination Lung Completed Volumes & Per Airway Resist 03/11/2018 49722 Pulmonary Stress Testing, Inc Measurement Completed Heart Rate, Oximetry 03/11/2018 77520 Pulmonary Function><Bronchodil Completed 02/11/2018 34744 ECHO Transthorasic Realtime 2D W Doppler Completed & Color Flow Hosp 08/06/2016 23474 Stress Test Completed 08/06/2016 98696 Myocardial Perfusion Imaging Tomographic Completed (Spect) Multiple Studies 08/01/2016 46053 ECHO Transthoracic, Real-Time 2D With Completed Doppler And Color Flow 07/30/2016 37325 Holter Monitor Review (24 hr)dr review & Completed interp only 07/29/2016 08849 ECG Monitor/Recording W/Visual Completed Superimposition Scanning 09/25/2014 65549 Diffusing Capacity Completed 09/25/2014 09847 Plethysmography Determination Lung Completed Volumes & Per Airway Resist 09/25/2014 66214 Pulmonary Function><Bronchodil Completed 12/05/2013 Colonoscopy Completed 10/19/2010 Colonoscopy Completed Colon polyps Encounters Type Date Location Provider CPT E/M Dx Office Visit 04/26/2018 [facility] Chuck Fiore, 71058 J32.9 1:20p Infectious Diseases Andrew R63.0 R63.4 R31.9 R53.1 Office Visit 04/22/2018 10:40a [facility] [place] [address] R10.9 Axson J32.1 J32.2 R63.1 Office Visit 04/16/2018 10:10a [facility] Chuck Fiore, 54244 J32.2 Infectious Diseases Andrew J32.1 Office Visit 04/08/2018 9:15a Pul[facility] [address] J44.[address] [facility] J96.10 Office Visit 03/26/2018 4:00p [facility] [place] [address] J01.90 Axson R04.2 Office Visit 02/22/2018 2:40p [facility] [place] [address] Z87.891 Dyana J44.9 Office Visit 02/18/2018 1:45p [facility] [place] [address] J44.[address] [facility] R09.02 Z87.891 Office Visit 02/15/2018 2:30p [facility] [place] [address] J44.[address] [facility] F17.201 R06.02 R09.02 Z99.81 Office Visit 02/15/2018 8:38a [facility], [place] [address] J44.1 Hospitalists I10 A49.8 Office Visit 02/14/2018 8:37a [facility], [place] [address] J44.1 Hospitalists I10 A49.8 Office Visit 02/13/2018 8:35a [facility], Mindy Kunz, 73770 J44.1 Hospitalists M.DAbdifatah I10 Office Visit 02/13/2018 2:30p [facility] [place] [address] J44.[address] [facility] F17.201 R06.02 Z99.81 Office Visit 02/12/2018 8:29a [facility], Mindy Kunz, 07712 J44.1 Hospitalists M.DAbdifatah I10 Office Visit 02/11/2018 8:11a [facility] [place] [address] J44.1 Assoc, Hospitalists MAneudy I10 Office Visit 02/11/2018 12:00p [facility] [place] [address] F17.[address] [facility] J44.1 J96.11 J96.12 Office Visit 11/30/2017 3:20p [facility] Internal Medicine Kevin Green, 64054 R10.13 - Mathieu Morales G43.C0 J44.9 Office Visit 09/09/2017 2:00p [facility] Internal Medicine Kevin Green, 68085 R10.13 - Mathieu Morales J44.1 [facility] [address] J96.02 10:58a Assoc, [employer] REPAIR[employer] Hospitalists J44.1 R10.13 Z72.0 Office Visit 09/03/2017 3:31[place] [address] R10.13 J44.1 G43.C0 Office Visit [facility] 412[address] J96.02 10:57a Assoc,pc POW[employer] REPAIRER Hospitalists J44.1 R10.13 Z72.0 Office Visit 09/02/2017 10:57a [facility] Assoc, Diana King, 70277 J96.02 Hospitalists N.P. J44.1 R10.13 Z72.0 Office Visit 09/01/2017 10:56a [facility] Assoc, Diana King, 25470 J96.02 Hospitalists N.P. J44.1 Z72.0 Office Visit 07/22/2017 2:40p [facility] Internal Medicine Kevin Green, 24847 J44.9 - Mathieu Morales S06.0x9D Office Visit 02/23/2017 3:00p [facility] Internal Medicine Kevin Green, 11314 Z00.00 - Mathieu Morales J44.9 E78.2 F17.210 R60.0 Office Visit 01/28/2016 1:00p [facility] Internal Medicine Kevin Green, 37649 Z00.00 - Dyana Morales J44.9 F17.210 Z80.42 E78.2 R73.01 Z23 R35.0 Office Visit 07/17/2015 2:40p [facility] Internal Medicine Kevin Green, 91263 J44.9 - Dyana Morales F17.210 Z12.2 Z23 Office Visit 05/17/2015 12:40p [facility] Internal Medicine - Anna Jin, 69717 381.00 Dyana Morales Office Visit 03/02/2015 9:30a [facility] [address] [address] [facility] 305.1 278.00 Office Visit 02/13/2015 9:[address]a [facility] Internal Medicine - Kevin Green, 29411 496 Dyana Morales Office Visit 10/06/2014 2:00p [facility] [place] [address] [address] [facility] 305.1 278.00 780.59 Office Visit 09/12/2014 3:40p [facility] Internal Medicine - Kevin Green, 72923 496 Dyana Morales v03.82 Office Visit 06/07/2014 9:00a [facility] Internal Medicine Kevin Green, 32461 V70.0 - Dyana Morales 496 272.2 784.0 V73.89 V16.42 V81.2 Office Visit 04/10/2014 3:40p [facility] Internal Medicine - Kevin Green, 59783 496 Dyana Morales 784.0 Office Visit 12/08/2013 10:00a [facility] Internal Medicine Kevin Green, 55354 272.2 - Dyana Morales 496 784.0 305.1 Office Visit 08/08/2013 4:20p [facility] Internal Medicine Wallace Cabrales 25175 272.2 - Dyana Morales 276.1 Office Visit 07/19/2013 11:20a [facility] Internal Medicine Wallace Cabrales 53386 784.0 - Dyana Morales 780.52 728.85 Office Visit 05/09/2013 3:20p [facility] Internal Medicine Wallace Cabrales M.D. 18564 496 - Dyana 272.2 784.0 305.1 278.00 Office Visit 05/27/2012 8:30a Mickey Hui, 13575 784.[address] [facility] Andrew 723.1 Plan of Care Future Appointment(s):05/06/2018 10:40 am - Johnson Yoo NP at [facility] Internal Medicine [facility]05/04/2018 9:10 am - Chuck Fiore M.D. at [facility] Ubbjzmwr66/07/2018 8:40 am - Johnson Yoo NP at [facility] Internal Medicine [facility]05/21/2018 11:30 am - Sapna Torres MD at [facility]05/03/2018 - Kevin Green M.D.Z01.810 Encounter for preprocedural cardiovascular ugfymmvfxobX39.9 Nasal polyp, ravzpsbrwrxM51.9 Chronic obstructive pulmonary disease, bdtgkwywepyZ54 Essential (primary) fvhgolszicmiM97.9 Gastro-esophageal reflux disease without esophagitis
--- OUTSIDE RECORDS SUMMARY | 2018-05-08 22:08 | XMS REPORT ---
:1950 External Reference #:[id number] Author Organization [facility] Address [address] [place] [address] [place] [address] Phone [phone] Care Team Providers Name Role Phone Sabrina Pavon MD Primary Care Physician Unavailable Payers Type Date Identification Numbers Payment Provider Subscriber Commercial Effective: Policy Number: [id number] Aries Martel/Howard Alexandru Chopra 2016 Options PayID: [id number] [address] [address] Attn: [place] [address] Medi[employer] Part B Expires: 2016 Policy Number: [id number] Medicare Alexandru Chopra PayID: [id number] [address] [place] [address] Problems Date Description Provider Status Onset: 05/09/2013 [...] a day SEAN Yoo Strength as needed Doxycycline 04/16 Active Capsules 100mg 60cap 1 by mouth J32.2 Chuck Monohydrate /2017 s twice a day D. with food George Fiore. Fluticasone 04/16 Active Suspension 50mcg/Act 16uni inhale [...] 12 SEAN Yoo hours as needed headache Ibuprofen 11/11 Active Tablets 600mg 90tab Take 1 Kevin E. /2017 s Tablet By Norma, Mouth Twice M.D. A Day as Needed Wheelchair 07/22 Active Misc 1unit lightweight J44.9 Kevin E. /2016 s folding Norma pearl M.D. dx: COPD, chronic dyspnea with exertion [...] needed Oxygen Active Misc 2 L Unknown / continuously Benzonatate Active Capsules 100mg 90cap take [...] Yoo - orally every 04/22 8 hours as needed for nausea. Levofloxacin 04/15 Hx Tablets 500mg 10tab one by mouth J01.90 Johnson /2018 s daily for 10 Fredo, SHUTTLE FIXER - days 04/15 Moxifloxacin 04/15 Hx Tablets 400mg 10tab 1 tablet Johnson HCL s once daily x Fredo, SHUTTLE FIXER - 10 days - pt 04/16 started Doxycycline 04/12 Hx Capsules 100mg 14cap one tablet J01.90 Johnson Hyclate /2017 s twice daily Fredo, SHUTTLE FIXER - for 7 days. 04/15 Doxycycline 03/30 Hx Capsules 100mg 20cap one tablet J01.90 Johnson Hyclate /2017 s twice daily Fredo, SHUTTLE FIXER - for 10 days. 04/09 Levofloxacin 03/26 Hx Tablets 500mg 10tab one by mouth J01.90 Johnson s daily for 10 Fredo, SHUTTLE FIXER - days 03/30 Levalbuterol 02/25 Hx Nebulizer 0.63mg/3M 225ml use 3-4x Sapna HCL L daily as Brian, - needed for MD 03/11 shortness of breath Albuterol 02/24 Hx Nebulizer 0.63mg/3M 675ml 1 unit, Sapna Sulfate /2017 L nebl, every Brian, - 6 hours, as 02/25 needed Levalbuterol 02/22 Hx Aerosol 45mcg/Act 15gm 2 puffs J44.9 Johnson Tartrate /2017 every 4-6 Fredo, SHUTTLE FIXER - hours as 03/11 needed for SOB Incruse Ellipta 02/20 Hx Aerosol 62.5mcg/I 30uni inhale one Sapna nh ts puff by Brian, - mouth every MD Incruse Ellipta 01/05 Hx Aerosol 62.5mcg/I 30uni inhale 1 Kevin E. nh ts puff by Norma, - mouth every M.D. Lioresal 10MG 10/27 Hx Tablet 90tab Take 1 Kevin E. s Tablet By Norma, - Mouth Twice M.D. 02/18 Daily Or Needed--not currently taking Ipratropium 05/30 Hx Solution 0.5-2.5(3 90uni Inhale 1 Kevin E. [place]/Albuter /2016 )mg/3ML ts Vial Via Norma, ol Sulfate - Nebulizer M.D. 02/18 Twice Daily as Needed For Shortness Of Breath Ipratropium 05/30 Hx Solution 0.5-2.5(3 540un Inhale 1 Kevin E. [place]/Albuter )mg/3ML its Vial Via Norma, ol Sulfate - Nebulizer M.D. 02/18 Twice Daily as Needed For Shortness Of Breath Flomax 01/27 Hx Capsules 0.4mg 90cap 1 by mouth Z80.42 E. s every day Eloisa Green M.D. 07/20 Atrovent HFA 11/20 Hx Aerosol 17mcg/Act 12.9u 1 unit, . nits inhl, twice Norma, - a day M.D. 01/27 Incruse Ellipta 11/05 Hx Aerosol 62.5mcg/I 1unit 1 inhalation . nh s every day Eloisa Green M.DAbdifatah 11/20 Neomycin/Polymy 05/17 Hx Suspension 3.5-67694 1vial Finished 381.00 Anna kenan/Hydrocortis /2014 -1 tammy Jin - M.DAbdifatah 07/16 [facility] NTS Step 1 03/02 Hx Patches 21mg/24HR 30uni 1 pach 305.1 Sapna /2014 24HR ts topically Brian, - every day 05/17 [facility] Nicotine 03/02 Hx Gum 4mg 60uni not taking F17.210 Sapna Polacrilex /2014 ts 1 gum, every Brian, - 6 hours as 01/27 Nicotine 10/06 Hx Patches 21mg/24HR 30uni 1 patch over 305.1 Kevin E. 24HR ts skin every Norma, - day M.DAbdifatah 05/17 Nicotine 10/06 Hx Gum 2mg 60uni 1 gum every 305.1 Kevin E. Polacrilex /2013 ts 6 hours as Norma - needed M.D. 05/17 Breo Ellipta 09/12 Hx Aerosol 100-25mcg 1unit 1 puff daily 496 Kevin E. /2013 /Inh s Norma, - M.DAbdifatah 02/13 Spiriva 09/12 Hx Capsules 18mcg 90cap Inhale 1 J44.9 Kevin E. Handale s Capsule (2 Norma, - Puffs) Via M.D. 02/18 Handihale Once Daily AT The Same Time Every Day Duoneb 06/22 Hx Solution 0.5-2.5(3 90uni Inhale 1 . )mg/3ML ts Vial Via Norma, - Nebulizer [...] Suspension 50mcg/Act 32gm 1 spray each Kevin Abdifatah nostril Norma, - daily as M.D. 02/18 needed Oxycodone HCL 02/25 Hx Tablets 5mg 30tab 1 by mouth Abdifatah s every 12 Norma, - hours as [...] t s Norma, - M.D. 09/11 Ibuprofen Hx Tablets 600mg 60tab [...] (20MG) Ipratropium Hx Solution 0.02% Inhale Unknown [place] /0000 Contents Of - 1 Vial Via [...] 40 Millicuries Technetium TC Administered Injection Gerber D. 99M 016 Andrew Zavala Tetrofosmin, Per Unit Dose Up To 40 Millicuries Immunizations CPT Code Status Date Vaccine Lot # [id number] Given 08/20/2017 Influenza Virus Vaccine, Quadrivalent, Split, Preservative Free [id number] Given 07/29/2016 Influenza Virus Vaccine, Quadrivalent, Split [id number] Virus, [place] [address] Given 07/17/2015 Influenza Virus Vaccine, Quadrivalent, Split, [id number] Preservative Free 84165 Given 09/12/2014 Pneumococcal Conjugate Vaccine 13 Valent For [id number] Intramuscular Use 09995 Given 08/23/2014 Flu Vaccine Split Virus Preservative Free For Indiv 3Yr Older [id number] Given 08/29/2013 Flu Vaccine NOS 20305 Given 09/10/2011 Pneumonia Vaccine 68896 Given 06/04/2011 Tdap - Tetanus/Diptheria/Acellular Pertussis Vital Signs Date Vital Result Comment 04/26/2018 Height 65 inches 5'5" Weight 152.00 [...] Test Date Test Result H/L Range Note CBC Auto Diff 04/22/2018 White Blood Count [...] Egfr Non- 121.8 >60 Egfr 147.4 >60 1 Laboratory test finding 04/22/2018 Lipase 13 U/L 11.0-82.0 Hemoglobin A1c (Glyco HGB) 6.1 % High 4.0-5.6 2 Urinalysis Profile 02/11/2018 Urine Color Straw Urine Appearance Clear Urine Specific [place] 1.004 Low 1.010-1.030 Urine pH 7.0 5-9 [...] Sensitivities 02/11/2018 Urine Culture SEE RESULT BELOW 3 Arterial Blood Gas 02/10/2018 O2 Device vapotherm Fio2 100 PH Arterial 7.33 Low 7.35-7.45 Pco2 Arterial 78 mmHg High 35-45 4 Po2 Arterial 240 mmHg High 80-100 O2 Saturation Arterial 100.1 % High 95-98 Base Excess Arterial 11.0 High -2.0-2.0 5 Hco3 Arterial 33.5 mmol/L High 19-31 CBC [...] finding 02/10/2018 Lactic Acid 1.0 mmol/L 0.5-2.0 6 Comp Metabolic Panel 02/10/2018 Sodium 128 mmol/L [...] Egfr Non- 147.7 >60 Egfr 189.9 >60 7 Laboratory test finding 02/10/2018 C Reactive Protein 1.24 mg/L < 5.00 8 Troponin-I (TnI) 0.01 ng/mL <0.04 Inr/Protime 02/10/2018 Inr 0.98 0.77-1.02 Laboratory test finding 02/10/2018 D Dimer Quantitative < 200 ng/mL Less Than 230 9 B-Type Natriuretic Peptide BNP 122 pg/mL High 10 Rapid Influenza A & B 02/08/2018 Influenza A Molecular NEGATIVE Negative 11 Molecular Influenza B Molecular NEGATIVE Negative Arterial Blood Gas 02/08/2018 Fio2 3 PH Arterial 7.34 Low 7.35-7.45 Pco2 Arterial 82 mmHg High 35-45 12 Po2 Arterial 133 mmHg High 80-100 O2 Saturation Arterial 99.2 % High 95-98 Base Excess Arterial 13.8 High -2.0-2.0 13 Hco3 Arterial 35.6 mmol/L High 19-31 Laboratory test 02/08/2018 Rapid Influenza A B SEE RESULT BELOW 14 finding Antigen CBC Auto Diff 02/08/2018 White [...] test 02/08/2018 Blood Culture SEE RESULT BELOW 15 finding Laboratory test 02/08/2018 Lactic Acid 0.9 mmol/L 0.5-2.0 16 finding Inr/Protime 02/08/2018 Inr 0.94 0.77-1.02 Laboratory test 02/08/2018 Partial Thrombo 29.5 seconds 26.0-36.3 finding Time PTT D Dimer Quantitative < 200 ng/mL Less Than 230 17 B-Type Natriuretic Peptide BNP 41 pg/mL 18 Procalcitonin 0.1 ng/mL <0.6 19 Troponin-I (TnI) 0.01 ng/mL <0.04 Comp Metabolic [...] Egfr Non- 136.2 >60 Egfr 175.2 >60 20 Co2 Carbon Dioxide 42 mmol/L High 22-32 21 Anion Gap 4 mmol/L 2-11 Laboratory test finding 02/08/2018 Creatine Kinase(CK) 154 U/L 10-223 C Reactive Protein 4.67 mg/L < 5.00 22 CKMB 02/08/2018 CKMB ng/mL 14.0 ng/mL High 0.6-6.3 23 Laboratory test finding 12/07/2017 Occult Blood - Stool negative Arterial Blood Gas 09/01/2017 Fio2 3 Vent Mode Liters PH Arterial 7.38 7.35-7.45 Pco2 Arterial 72 mmHg High 35-45 24 Po2 Arterial 75 mmHg Low 80-100 O2 Saturation Arterial 97.4 % 95-98 Base Excess Arterial 13.4 High -2.0-2.0 25 Hco3 Arterial 35.2 mmol/L High 19-31 CBC [...] finding 09/01/2017 Lactic Acid 1.3 mmol/L 0.5-2.0 26 Troponin-I (TnI) 0.02 ng/mL <0.04 Comp Metabolic [...] Egfr Non- 136.2 >60 Egfr 175.2 >60 27 Co2 Carbon Dioxide 42 mmol/L High 22-32 28 Anion Gap 3 mmol/L 2-11 Laboratory test finding 09/01/2017 B-Type Natriuretic Peptide BNP 33 pg/mL 29 Lipid Profile 02/19/2017 Triglycerides 100 mg/dL 30 (Trig/Chol/HDL) Cholesterol 226 mg/dL 31 HDL Cholesterol 42.9 mg/dL 32 LDL Cholesterol 163 mg/dL 33 CBC Auto Diff 07/29/2016 White Blood Count [...] Egfr Non- 110.3 >60 Egfr 141.9 >60 34 Laboratory test finding 07/29/2016 TSH (Thyroid Stim Horm) 1.93 mcIU/mL 0.34-5.60 Magnesium 2.1 mg/dL 1.9-2.7 Laboratory test finding 01/29/2016 PSA Screening 0.416 ng/mL 0-4.000 35 Hemoglobin A1c (Glyco HGB) 6.0 % Less than 6.0 36 Comp Metabolic Panel 01/23/2016 Sodium 133 mmol/L [...] Egfr Non- 100.8 >60 Egfr 129.6 >60 37 Lipid Profile (Trig/Chol/HDL) 01/23/2016 Triglycerides 98 mg/dL 38 Cholesterol 212 mg/dL 39 HDL Cholesterol 38.0 mg/dL 40 LDL Cholesterol 154 mg/dL 41 Laboratory test finding 06/20/2014 PSA Screening 0.526 ng/mL 0-4.000 42 Hepatitis C Antibody Nonreactive Nonreactive Lipid Profile (Trig/Chol/HDL) 06/20/2014 Triglycerides 124 mg/dL 43 Cholesterol 202 mg/dL 44 HDL Cholesterol 36.6 mg/dL 45 LDL Cholesterol 141 mg/dL 46 CBC With Manual Diff 06/20/2014 White Blood Count 10.7 10^3/uL 4.8-10.8 Red Blood Count 5.54 10^6/uL High 4.0-5.4 Hemoglobin 18.0 g/dL 14.0-18.0 Hematocrit 52 % 42-52 Mean Corpuscular Volume 94 fL 80-94 Mean Corpuscular Hemoglobin 33 pg High 27-31 Mean Corpuscular HGB Conc 35 g/dL 31-36 Red Cell Distribution Width 14 % 10.5-15 Platelet Count 233 10^3/uL 150-450 47 Mean Platelet Volume 7 um3 7.4-10.4 48 Abs Neutrophils 7.8 10^3/uL High 1.5-7.7 Abs [...] 12/05/2013 S RUN DATE: 12/06/ <SEE NOTE> 49 Basic Metabolic Panel 09/09/2013 Sodium 135 mmol/L 133-145 Potassium 4.5 mmol/L 3.5-5.0 Chloride 98 mmol/L Low 101-111 Co2 Carbon Dioxide 32.0 mmol/L 22-32 Anion Gap 5.0 mmol/L 2-11 Glucose 98 mg/dL 70-100 Blood Urea Nitrogen 7 mg/dL 6-24 Creatinine 0.90 mg/dL 0.50-1.40 BUN/Creatinine Ratio 7.8 Low 8-20 Calcium 9.0 mg/dL 8.1-9.9 Egfr Non- 84.7 >60 Egfr 108.9 >60 50 Lipid Profile (Trig/Chol/HDL) 07/19/2013 Triglycerides 105 mg/dL 40-200 Cholesterol 209 mg/dL High Less than 200 HDL Cholesterol 36 mg/dL Low 40-60 51 Cholesterol/HDL Ratio 5.8 Average High 1-4.44 LDL Cholesterol 152.0 High Less Than 100 52 Comp Metabolic Panel 07/19/2013 Sodium 132 mmol/L [...] Egfr Non- 113.2 >60 Egfr 145.6 >60 53 1 Because ethnic data is not always readily [...] 15-29 5 Kidney failure <15 (or dialysis) 2 Therapeutic target for the treatment of diabetes mellitus patients is <7% HBA1C, and in selective patients <6.0%. Please refer to [place] [employer] diabetic care guidelines for further information. 3 SEE RESULT BELOW Name: ALEXANDRU CHOPRA : [address]: Mindy Kunz MD Acct: [id number] Unit: [id number] AGE: 67 Location: [place] [address] Re02/11/18 SEX: M Status: ADM IN SPEC: [id number] DARBY: 02/11/18-36 [facility] DR: Sang Gtuierrez MD REQ: [id number] RECD: 02/11/18 STATUS: MANDEEP RODRIGUEZ DR: Kevin Green III, MD _ SOURCE: URINE SPDESC: ORDERED: Urine Culture Procedure Result Reported Site Urine Culture Final 02/12/18- 922 ML No Growth (<1,000 CFU/mL) * ML - Main Lab . END OF REPORT DEPARTMENT OF PATHOLOGY, [address] [place] [address] Joselo Jamil M.D. Director KALYN # [id number] 4 Verbal to [id number] by [id number] at 2243 on 02/10/18. Results read back accurately. 5 Reference ranges based on room air. 6 TXS Severe Sepsis and Septic Shock Management Bundle Measure requires all lactic acids initially measuring >2.0 mmol/L be repeated. 7 Because ethnic data is not always readily [...] 15-29 5 Kidney failure <15 (or dialysis) 8 Acute inflammation: >10.00 9 Please note: The following may produce a false positive D Dimer test: - Rheumatoid factor greater than 60 IU/ml - Plasma hemoglobin greater than 0.05 gm/dl - Bilirubin greater than 50 mg/dl - Lipids greater than 1000 mg/dl - FDP greater than 20 ug/ml 10 >100 to <200 pg/mL: likely compensated congestive heart failure (CHF) 200 to 400 pg/mL: likely moderate CHF >400 pg/mL: likely moderate to severe CHF 11 [place]: [id number] 12 Verbal to [id number] by [id number] at 1231 on 02/08/18. Results read back accurately. 13 Reference ranges based on room air. 14 SEE RESULT BELOW Name: ALEXANDRU CHOPRA : [address]: Kelly Kaur MD Acct: [id number] Unit: [id number] AGE: 67 Location: ED Re02/08/18 SEX: M Status: REG ER SPEC: [id number] DARBY: 02/08/18-1140 [facility] DR: Kelly Kaur MD REQ: [id number] RECD: 02/08/18 STATUS: MANDEEP RODRIGUEZ DR: Kevin Green III, MD _ SOURCE: STACIAKamryn [facility]: ORDERED: Flu A B Request Procedure Result Reported Site Rapid Influenza A B Request Final 02/08/18- 1211 ML Specimen received for Influenza A/B Molecular testing * ML - Main Lab . END OF REPORT DEPARTMENT OF PATHOLOGY, [address] [place] [address] Joselo Jamil M.D. Director KALYN # [id number] 15 SEE RESULT BELOW Name: NOYALEXANDRU : [address]: Kelly Kaur MD Acct: [id number] Unit: [id number] AGE: 67 Location: ED Re02/08/18 SEX: M Status: DEP ER SPEC: [id number] DARBY: 02/08/18 [facility] DR: Kelly Kaur MD REQ: [id number] RECD: 02/08/18 STATUS: MANDEEP RODRIGUEZ DR: Kevin Green III, MD _ SOURCE: BLOOD,VENO SPDESC: ORDERED: Blood Cult COMMENTS: Patient is On Antibiotics? YES Procedure Result Reported Site Aerobic Culture Bottle Final 02/13/18- 1159 ML No Growth Day 5 Anaerobic Culture Bottle Final 02/13/18- 1159 ML No Growth Day 5 * ML - Main Lab . END OF REPORT DEPARTMENT OF PATHOLOGY, [address] [place] [address] Joselo Jamil M.D. Director [facility] # [id number] [facility] Severe Sepsis and Septic Shock Management Bundle Measure requires all lactic acids initially measuring >2.0 mmol/L be repeated. 17 Please note: The following may produce a false positive D Dimer test: - Rheumatoid factor greater than 60 IU/ml - Plasma hemoglobin greater than 0.05 gm/dl - Bilirubin greater than 50 mg/dl - Lipids greater than 1000 mg/dl - FDP greater than 20 ug/ml 18 >100 to <200 pg/mL: likely compensated congestive heart failure (CHF) 200 to 400 pg/mL: likely moderate CHF >400 pg/mL: likely moderate to severe CHF 19 Interpretive information available on [employer] Lab Test Catalog at [email or web address] 20 Because ethnic data is not always readily [...] 15-29 5 Kidney failure <15 (or dialysis) 21 Verbal to [id number] by [id number] at 1204 on 02/08/18. Results read back accurately. 22 Acute inflammation: >10.00 23 Critical Result CO2:42 Called to [id number] at: 12:04:32 by:[id number] Read back by:[id number] 24 Verbal to [id number] by [id number] at 1343 on 09/01/17. Results read back accurately. 25 Reference ranges based on room air. 26 [facility] Severe Sepsis and Septic Shock Management Bundle Measure requires all lactic acids initially measuring >2.0 mmol/L be repeated. 27 Because ethnic data is not always readily [...] 15-29 5 Kidney failure <15 (or dialysis) 28 Critical Result CO2:42 Called to [id number] at: 12:23:54 by:[id number] Read back by:[id number] 29 >100 to <200 pg/mL: likely compensated congestive heart failure (CHF) 200 to 400 pg/mL: likely moderate CHF >400 pg/mL: likely moderate to severe CHF 30 Desirable <150 Borderline high 150-199 High 200-499 Very High >500 31 Desirable <200 Borderline high 200-239 High >239 32 Low <40 Desirable: 40-60 High: >60 33 Desirable: <100 mg/dL Near Optimal: 100-129 mg/dL Borderline High: 130-159 mg/dL High: 160-189 mg/dL Very High: >189 mg/dL 34 Because ethnic data is not always readily [...] 15-29 5 Kidney failure <15 (or dialysis) 35 Serum levels of PSA measured using the Sarita [employer] DXI Hybritech immunoassay should not be interpreted [...] methods or kits cannot be used interchangeably. 36 Therapeutic target for the treatment of diabetes Mellitus patients is <7% HBA1C, and in selective patients <6.0%.Please refer to [place] [employer] Diabetic care guidelines for further information. 37 Because ethnic data is not always readily [...] 15-29 5 Kidney failure <15 (or dialysis) 38 Desirable <150 Borderline high 150-199 High 200-499 Very High >500 39 Desirable <200 Borderline high 200-239 High >239 40 Low <40 Desirable: 40-60 High: >60 41 Desirable: <100 mg/dL Near Optimal: 100-129 mg/dL Borderline High: 130-159 mg/dL High: 160-189 mg/dL Very High: >189 mg/dL 42 Serum levels of PSA measured using the [employer] DXI Hybritech immunoassay should not be interpreted [...] methods or kits cannot be used interchangeably. 43 Desirable <150 Borderline high 150-199 High 200-499 Very High >500 44 Desirable <200 Borderline high 200-239 High >239 45 Low <40 Desirable: 40-60 High: >60 46 Desirable <100 Near Optimal 100-129 Borderline high 130-159 High 160-189 Very High >189 47 --- 06/20/141647 --- Platelet Count previously reported as: 233 10 3/ul 48 --- 06/20/141647 --- MPV previously reported as: 7 L um3 49 RUN DATE: 12/06/13 [facility] LAB LIVE PAGE 1 RUN TIME: [address] [place] [address] Specimen Inquiry Name: ALEXANDRU CHOPRA : [address]: Ishaan Maki MD Acct: [id number] Unit: [id number] AGE: 63 Location: [facility] Re12/05/13 SEX: M Status: REG REF SPEC: [id number] DARBY: 12/05/13- SUBM DR: Ishaan Maki MD REQ: [id number] RECD: 12/05/13 STATUS: CONG RODRIGUEZ DR: Kevin [...] performed at Main Lab DEPARTMENT OF PATHOLOGY, [address] [place] [address] Joselo Jamil M.D. Director [facility] Permit #[id number] 50 Because ethnic data is not always readily [...] 15-29 5 Kidney failure <15 (or dialysis) 51 HDL Interpretation: Undesirable: High Risk: Less than 40 mg/dL Desirable: Low Risk: Greater than 60 mg/dL 52 LDL Interpretation: Low Risk Optimal Level: LDL Less than 100 mg/dL Near or Above Optimal: LDL 100-129 mg/dL Borderline High Risk: LDL 130-159 mg/dL High Risk: LDL 160-189 mg/dL Very High Risk: LDL Greater than 189 mg/dL 53 Because ethnic data is not always readily [...] Date CPT Code Description Status Comment 03/11/2018 88758 Diffusing Capacity Completed 03/11/2018 54774 Plethysmography Determination Lung Completed Volumes & Per Airway Resist 03/11/2018 54519 Pulmonary Stress Testing[facility] Measurement Completed Heart Rate, Oximetry 03/11/2018 25841 Pulmonary Function><Bronchodil Completed 02/11/2018 64840 ECHO Transthorasic Realtime 2D W Doppler Completed & Color Flow Hosp 08/06/2016 72781 Stress Test Completed 08/06/2016 13064 Myocardial Perfusion Imaging Tomographic Completed (Spect) Multiple Studies 08/01/2016 03023 ECHO Transthoracic, Real-Time 2D With Completed Doppler And Color Flow 07/30/2016 39315 Holter Monitor Review (24 hr)dr review & Completed interp only 07/29/2016 21932 ECG Monitor/Recording W/Visual Completed Superimposition Scanning 09/25/2014 48054 Diffusing Capacity Completed 09/25/2014 86055 Plethysmography Determination Lung Completed Volumes & Per Airway Resist 09/25/2014 46987 Pulmonary Function><Bronchodil Completed 12/05/2013 Colonoscopy Completed 10/19/2010 Colonoscopy Completed Colon polyps Encounters Type Date Location Provider CPT E/M Dx Office Visit 04/22/2018 10:40a [facility] [place] [address] R10.9 Dyana J32.1 J32.2 R63.1 Office Visit 04/16/2018 10:10a [facility] Chuck Fiore, [address] J32.2 Infectious Diseases Andrew J32.1 Office Visit 04/08/2018 9:15a [facility] [address] J44.9 [facility] J96.10 Office Visit 03/26/2018 4:00p [facility] [place] [address] J01.90 Dyana R04.2 Office Visit 02/22/2018 2:40p [facility] [place] [address] Z87.891 Dyana J44.9 Office Visit 02/18/2018 1:45p [facility] [place] [address] J44.9 [facility] R09.02 Z87.891 Office Visit 02/15/2018 2:30p [facility] [place] [address] J44.1 [facility] F17.201 R06.02 R09.02 Z99.81 Office Visit 02/15/2018 8:38a [facility] [address] J44.1 Hospitalists I10 A49.8 Office Visit 02/14/2018 8:37a [facility] [address] J44.1 Hospitalists I10 A49.8 Office Visit 02/13/2018 8:35a [facility] Mindy Kunz, 21096 J44.1 Hospitalists M.DAbdifatah I10 Office Visit 02/13/2018 2:30p [facility] [place] [address] J44.1 [facility] F17.201 R06.02 Z99.81 Office Visit 02/12/2018 8:29a [facility], Mindy Kunz, 42125 J44.1 Hospitalists MAneudy I10 Office Visit 02/11/2018 8:11[facility] [place], [address] J44.1 Assoc, Hospitalists MAneudy I10 Office Visit 02/11/2018 12:00p Pul[facility] [address] F17.201 [facility] J44.1 J96.11 J96.12 Office Visit 11/30/2017 3:20p [facility] Internal Medicine Kevin Green, 42573 R10.13 - Mathieu Morales G43.C0 J44.9 Office Visit 09/09/2017 2:00p [facility] Internal Medicine Kevin Green, 62984 R10.13 Eloisa Murdock M.D. J44.1 Office Visit 09/04/2017 [facility] Maria R Real, 955[address] J96.02 10:58a Assoc,pc SH[employer] Hospitalists J44.1 R10.13 Z72.0 Office Visit 09/03/2017 3:31p [place] [address] R10.13 J44.1 G43.C0 Office Visit 09/03/2017 [facility] Maria R Real, 63016 J96.02 10:57a Assoc,pc [employer] Hospitalists J44.1 R10.13 Z72.0 Office Visit 09/02/2017 10:57a [facility], Diana King, 33471 J96.02 Hospitalists N.P. J44.1 R10.13 Z72.0 Office Visit 09/01/2017 10:56a [facility], Diana King, 71433 J96.02 Hospitalists N.P. J44.1 Z72.0 Office Visit 07/22/2017 2:40p [facility] Internal Medicine Kevin Green, 328[address] J44.9 - Mathieu Morales S06.0x9D Office Visit 02/23/2017 3:00p [facility] Internal Medicine Kevin Green, 08191 Z00.00 - Mathieu Morales J44.9 E78.2 F17.210 R60.0 Office Visit 01/28/2016 1:00p [facility] Internal Medicine Kevin Green, 48498 Z00.00 - Dyana Morales J44.9 F17.210 Z80.42 E78.2 R73.01 Z23 R35.0 Office Visit 07/17/2015 2:40p [facility] Internal Medicine Kevin Green, 58741 J44.9 - Dyana Morales F17.210 Z12.2 Z23 Office Visit 05/17/2015 12:40p [facility] Internal Medicine - Anna Jin, 83792 381.00 Dyana Morales Office Visit 03/02/2015 9:30a [facility] [address] [facility] 305.1 278.00 Office Visit 02/13/2015 9:00a [facility] Internal Medicine - Kevin Green, [address] 496 Dyana Morales Office Visit 10/06/2014 2:00p [facility] [place] [address] [facility] 305.1 278.00 780.59 Office Visit 09/12/2014 3:40p [facility] Internal Medicine - Kevin Green, [address] 496 Dyana Morales v03.82 Office Visit 06/07/2014 9:00a [facility] Internal Medicine Kevin Green, 837[address] V70.0 - Dyana Morales 496 272.2 784.0 V73.89 V16.42 V81.2 Office Visit 04/10/2014 3:40p [facility] Internal Medicine - Kevin Green, 383[address] 496 Dyana Morales 784.0 Office Visit 12/08/2013 10:00a [facility] Internal Medicine Kevin Green, 93142 272.2 - Dyana Morales 496 784.0 305.1 Office Visit 08/08/2013 4:20p [facility] Internal Medicine Wallace Cabrales, 32831 272.2 - Dyana Morales 276.1 Office Visit 07/19/2013 11:20a [facility] Internal Medicine Wallace Cabrales, 45865 784.0 - Dyana Morales 780.52 728.85 Office Visit 05/09/2013 3:20p [facility] Wallace Cabrales M.D. [id number] 496 - Dyana 272.2 784.0 305.1 278.00 Office Visit 05/27/2012 8:30a [facility] Alexandru Hui, [address] 784.0 [facility] Andrew 723.1 Plan of Care Future Appointment(s):05/04/2018 9:10 am - Chuck Fiore M.D. at [facility] Lqmvsmfu62/07/2018 8:40 am - Johnson Yoo NP at [facility] - Ufwentrdg09/03/2018 11:30 am - Sapna Torres MD at [facility]04/26/2018 - Chuck Fiore M.D.J32.9 Chronic sinusitis, unspecifiedFollow up:next weekRecommendations:hold doxycycline while evaluation is underway and see if decr appetite wrxzunuoC71.0 DnmniejnH24.02 Hypoxemia
--- OUTSIDE RECORDS SUMMARY | 2018-05-08 22:08 | XMS REPORT ---
:1950 External Reference #:[id number] Author Organization [facility] Address [address] [place] [address] [place] [address] Phone [phone] Care Team Providers Name Role Phone Sabrina Pavon MD Primary Care Physician Unavailable Payers Type Date Identification Numbers Payment Provider Subscriber Commercial Effective: Policy Number: [id number] Aries Martel/Howard Alexandru Chopra 2016 Options PayID: [id number] [address] [address] Attn: [place] [address] [employer] [place] Part B Expires: 2016 Policy Number: [id number] Medicare Alexandru Chopra PayID: [id number] [address] [place] [address] Problems Date Description Provider Status Onset: 05/09/2013 [...] GI upset 03/26/2018 Augmentin active Severe nausea Medications Medication Date Status Form Strength Qnty SIG Indications Ordering Provider Ranitidine 150 04/22 Active Tablets 150mg 60tab one by mouth R10.9 Johnson Maximum /2017 s twice a day SEAN Yoo Strength as needed Doxycycline 04/16 Active Capsules 100mg 60cap 1 by mouth J32.2 Chuck Monohydrate /2017 s twice a day D. with food Franklyn CookD. Fluticasone 04/16 Active Suspension 50mcg/Act 16uni inhale [...] Tablets 5mg 30tab 1 by mouth Johnson /2018 s every 12 Fredo [employer]ER hours as needed headache Ibuprofen 11/11 Active Tablets 600mg 90tab Take 1 Kevin E. /2017 s Tablet By Norma Mouth Twice M.D. A Day as Needed [...] 62.5-25mc 1 inhalation Unknown / g/Inh daily Tylenol Extra Active Tablets 500mg 2 by mouth Unknown Strength 0000 every 6 hours as needed Albuterol Active Nebulizer Via Unknown Sulfate nebulizer, as needed Omeprazole Active Capsules DR 20mg 60cap Take 2 Kevin E. / s Capsules By Norma, Mouth Daily M.D. AT 7:30Am Metoclopramide 04/22 Hx Tablets 5mg 30tab one tablet Johnson HCL /2017 s every 8 Fredo [employer] OFF[employer]ER - hours as 04/22 needed. Ondansetron 04/20 Hx Tablets 4mg 30tab dissolve one Johnson /2017 Dispers s tablet SEAN Yoo - orally every 04/22 8 hours needed for nausea. Levofloxacin 04/15 Hx Tablets 500mg 10tab one by mouth J01.90 Johnson /2018 s daily for 10 Fredo, [employer] OFFICER - days 04/15 Moxifloxacin 04/15 Hx Tablets 400mg 10tab 1 tablet Johnson HCL s once daily x Fredo, [employer] OFFICER - 10 days - pt 04/16 started Doxycycline 04/12 Hx Capsules 100mg 14cap one tablet J01.90 Johnson Hyclate /2017 s twice daily Fredo, [employer] OFFICER - for 7 days. 04/15 Doxycycline 03/30 Hx Capsules 100mg 20cap one tablet J01.90 Johnson Hyclate /2017 s twice daily Fredo, [employer] OFFICER - for 10 days. 04/09 Levofloxacin 03/26 Hx Tablets 500mg 10tab one by mouth J01.90 Johnson s daily for 10 Fredo, [employer] OFFICER - days 03/30 Levalbuterol 02/25 Hx Nebulizer 0.63mg/3M 225ml use 3-4x Sapna HCL /2017 L daily as Brian, - needed for MD 03/11 shortness of breath Albuterol 02/24 Hx Nebulizer 0.63mg/3M 675ml 1 unit, Sapna Sulfate L nebl, every Brian, - 6 hours, as MD 02/25 needed Levalbuterol 02/22 Hx Aerosol 45mcg/Act 15gm 2 puffs J44.9 Johnson Tartrate every 4-6 Fredo, [employer] OFF[employer]ER - hours as 03/11 needed for SOB Incruse Ellipta 02/20 Hx Aerosol 62.5mcg/I 30uni inhale one Sapna nh ts puff by Brian, - mouth every MD Incruse Ellipta 01/05 Hx Aerosol 62.5mcg/I 30uni inhale 1 Kevin E. nh ts puff by Norma, - mouth every M.D. 02/18 day Lioresal 10MG 10/27 Hx Tablet 90tab Take 10/20 Kevin E. s Tablet By Norma, - Mouth Twice M.D. 02/18 Daily Or Needed--not currently taking Ipratropium 05/30 Hx Solution 0.5-2.5(3 90uni Inhale 1 Kevin E. [place]/Albuter /2016 )mg/3ML ts Vial Via Norma, ol Sulfate - Nebulizer M.D. 02/18 Twice Daily as Needed For Shortness Of Breath Ipratropium 05/30 Hx Solution 0.5-2.5(3 540un Inhale 1 Kevin E. [place]/Albuter )mg/3ML its Vial Via Norma, ol Sulfate - Nebulizer .D. 02/18 Twice Daily as Needed For Shortness Of Breath Flomax 01/27 Hx Capsules 0.4mg 90cap 1 by mouth Z80.42 . s every day Eloisa Green M.DAbdifatah 07/20 Atrovent HFA 11/20 Hx Aerosol 17mcg/Act 12.9u 1 unit, . nits inhl, twice Norma, - a day M.D. 01/27 Incruse Ellipta 11/05 Hx Aerosol 62.5mcg/I 1unit 1 inhalation . nh s every day Eloisa Green M.DAbdifatah 11/20 Neomycin/Polymy 05/17 Hx Suspension 3.5-44176 1vial Finished 381.00 Anna kenan/Hydrocortis /2014 -1 [...] ts 6 hours as Norma - needed M.DAbdifatah 05/17 Breo Ellipta 09/12 Hx Aerosol 100-25mcg [...] Aerosol 160-4.5mc 1unit 2 puffs by Kevin Curran /2013 g/Act s mouth twice Norma, - a day M.D. 06/07 Fluticasone 08/03 Hx Suspension 50mcg/Act 32gm 1 spray each Kevin Abdifatah nostril Norma, - daily as M.D. 02/18 needed Oxycodone HCL 02/25 Hx Tablets 5mg 30tab 1 by mouth . /2012 s every 12 Norma, - hours as [...] Tablets 600mg 60tab Take 1 Kevin E. / s Tablet By Norma, - Mouth Twice [...] (20MG) Ipratropium Hx Solution 0.02% Inhale Unknown [place] /0000 Contents Of - 1 Vial Via 04/07 Inhalation Every 4 Hours as Needed For S Levalbuterol Hx Nebulizer 1.25mg/0. Inhale 1 Unknown HCL /0000 5ML Vial Via - Nebulizer 02/25 Every Hours as Needed For Dyspnea Medications Administered in Office Medication Date Status Form Strength Qnty SIG Indications Ordering Provider Inj, Administered Injection Gerber Waqas Regadenoson, 016 Andrew Zavala 0.1 MG Technetium TC Administered Injection Gerber D. 99M 016 Andrew Zavala Tetrofosmin, Per Unit Dose Up To 40 Millicuries Technetium TC Administered Injection Gerber D. 99M 016 Andrew Zavala Tetrofosmin, Per Unit Dose Up To 40 Millicuries Immunizations CPT Code Status Date Vaccine Lot # [id number] Given 08/20/2017 Influenza Virus Vaccine, Quadrivalent, Split, Preservative Free 22361 Given 07/29/2016 Influenza Virus Vaccine, Quadrivalent, Split [id number] Virus, [place] Use 40473 Given 07/17/2015 Influenza Virus Vaccine, Quadrivalent, Split, [id number] Preservative Free 93758 Given 09/12/2014 Pneumococcal Conjugate Vaccine 13 Valent For [id number] Intramuscular Use 76597 Given 08/23/2014 Flu Vaccine Split Virus Preservative Free For Indiv 3Yr Older [id number] Given 08/29/2013 Flu Vaccine NOS 04506 Given 09/10/2011 Pneumonia Vaccine 11955 Given 06/04/2011 Tdap - Tetanus/Diptheria/Acellular Pertussis Vital Signs Date Vital Result Comment 04/22/2018 Height 65 inches 5'5" Weight 152.75 [...] Test Date Test Result H/L Range Note Urinalysis Profile 02/11/2018 Urine Color Straw Urine Appearance Clear Urine Specific [place] 1.004 Low 1.010-1.030 Urine pH 7.0 5-9 [...] Sensitivities 02/11/2018 Urine Culture SEE RESULT BELOW 1 Arterial Blood Gas 02/10/2018 O2 Device vapotherm Fio2 100 PH Arterial 7.33 Low 7.35-7.45 Pco2 Arterial 78 mmHg High 35-45 2 Po2 Arterial 240 mmHg High 80-100 O2 Saturation Arterial 100.1 % High 95-98 Base Excess Arterial 11.0 High -2.0-2.0 3 Hco3 Arterial 33.5 mmol/L High 19-31 CBC [...] finding 02/10/2018 Lactic Acid 1.0 mmol/L 0.5-2.0 4 Comp Metabolic Panel 02/10/2018 Sodium 128 mmol/L [...] Egfr Non- 147.7 >60 Egfr 189.9 >60 5 Laboratory test finding 02/10/2018 C Reactive Protein 1.24 mg/L < 5.00 6 Troponin-I (TnI) 0.01 ng/mL <0.04 Inr/Protime 02/10/2018 Inr 0.98 0.77-1.02 Laboratory test finding 02/10/2018 D Dimer Quantitative < 200 ng/mL Less Than 230 7 B-Type Natriuretic Peptide BNP 122 pg/mL High 8 Rapid Influenza A & B 02/08/2018 Influenza A Molecular NEGATIVE Negative 9 Molecular Influenza B Molecular NEGATIVE Negative Arterial Blood Gas 02/08/2018 Fio2 3 PH Arterial 7.34 Low 7.35-7.45 Pco2 Arterial 82 mmHg High 35-45 10 Po2 Arterial 133 mmHg High 80-100 O2 Saturation Arterial 99.2 % High 95-98 Base Excess Arterial 13.8 High -2.0-2.0 11 Hco3 Arterial 35.6 mmol/L High 19-31 Laboratory test 02/08/2018 Rapid Influenza A B SEE RESULT BELOW 12 finding Antigen Laboratory test 02/08/2018 Blood Culture SEE RESULT BELOW 13 finding CBC Auto Diff 02/08/2018 White Blood Count [...] Blood Cells % 0.1 Laboratory test finding 02/08/2018 Lactic Acid 0.9 mmol/L 0.5-2.0 14 Inr/Protime 02/08/2018 Inr 0.94 0.77-1.02 Laboratory test finding 02/08/2018 Partial Thrombo Time 29.5 seconds 26.0 -36.3 PTT D Dimer Quantitative < 200 ng/mL Less Than 230 15 B-Type Natriuretic Peptide BNP 41 pg/mL 16 Procalcitonin 0.1 ng/mL <0.6 17 Troponin-I (TnI) 0.01 ng/mL <0.04 Comp Metabolic [...] Egfr Non- 136.2 >60 Egfr 175.2 >60 18 Co2 Carbon Dioxide 42 mmol/L High 22-32 19 Anion Gap 4 mmol/L 2-11 Laboratory test finding 02/08/2018 Creatine Kinase(CK) 154 U/L 10-223 C Reactive Protein 4.67 mg/L < 5.00 20 CKMB 02/08/2018 CKMB ng/mL 14.0 ng/mL High 0.6-6.3 21 Laboratory test finding 12/07/2017 Occult Blood - Stool negative Arterial Blood Gas 09/01/2017 Fio2 3 Vent Mode Liters PH Arterial 7.38 7.35-7.45 Pco2 Arterial 72 mmHg High 35-45 22 Po2 Arterial 75 mmHg Low 80-100 O2 Saturation Arterial 97.4 % 95-98 Base Excess Arterial 13.4 High -2.0-2.0 23 Hco3 Arterial 35.2 mmol/L High 19-31 CBC [...] finding 09/01/2017 Lactic Acid 1.3 mmol/L 0.5-2.0 24 Troponin-I (TnI) 0.02 ng/mL <0.04 Comp Metabolic [...] Egfr Non- 136.2 >60 Egfr 175.2 >60 25 Co2 Carbon Dioxide 42 mmol/L High 22-32 26 Anion Gap 3 mmol/L 2-11 Laboratory test finding 09/01/2017 B-Type Natriuretic Peptide BNP 33 pg/mL 27 Lipid Profile 02/19/2017 Triglycerides 100 mg/dL 28 (Trig/Chol/HDL) Cholesterol 226 mg/dL 29 HDL Cholesterol 42.9 mg/dL 30 LDL Cholesterol 163 mg/dL 31 CBC Auto Diff 07/29/2016 White Blood Count [...] Egfr Non- 110.3 >60 Egfr 141.9 >60 32 Laboratory test finding 07/29/2016 TSH (Thyroid Stim Horm) 1.93 mcIU/mL 0.34-5.60 Magnesium 2.1 mg/dL 1.9-2.7 Laboratory test finding 01/29/2016 PSA Screening 0.416 ng/mL 0-4.000 33 Hemoglobin A1c (Glyco HGB) 6.0 % Less than 6.0 34 Lipid Profile (Trig/Chol/HDL) 01/23/2016 Triglycerides 98 mg/dL 35 Cholesterol 212 mg/dL 36 HDL Cholesterol 38.0 mg/dL 37 LDL Cholesterol 154 mg/dL 38 Comp Metabolic Panel 01/23/2016 Sodium 133 mmol/L [...] Egfr Non- 100.8 >60 Egfr 129.6 >60 39 Lipid Profile (Trig/Chol/HDL) 06/20/2014 Triglycerides 124 mg/dL 40 Cholesterol 202 mg/dL 41 HDL Cholesterol 36.6 mg/dL 42 LDL Cholesterol 141 mg/dL 43 CBC With Manual Diff 06/20/2014 White Blood Count 10.7 10^3/uL 4.8-10.8 Red Blood Count 5.54 10^6/uL High 4.0-5.4 Hemoglobin 18.0 g/dL 14.0-18.0 Hematocrit 52 % 42-52 Mean Corpuscular Volume 94 fL 80-94 Mean Corpuscular Hemoglobin 33 pg High 27-31 Mean Corpuscular HGB Conc 35 g/dL 31-36 Red Cell Distribution Width 14 % 10.5-15 Platelet Count 233 10^3/uL 150-450 44 Mean Platelet Volume 7 um3 7.4-10.4 45 Abs Neutrophils 7.8 10^3/uL High 1.5-7.7 Abs [...] 2 % 0-6 RBC Morphology Normal Normal Laboratory test finding 06/20/2014 PSA Screening 0.526 ng/mL 0-4.000 46 Hepatitis C Antibody Nonreactive Nonreactive Surgical Pathology 12/05/2013 S RUN DATE: 12/06/ <SEE NOTE> 47 Basic Metabolic Panel 09/09/2013 Sodium 135 mmol/L 133-145 Potassium 4.5 mmol/L 3.5-5.0 Chloride 98 mmol/L Low 101-111 Co2 Carbon Dioxide 32.0 mmol/L 22-32 Anion Gap 5.0 mmol/L 2-11 Glucose 98 mg/dL 70-100 Blood Urea Nitrogen 7 mg/dL 6-24 Creatinine 0.90 mg/dL 0.50-1.40 BUN/Creatinine Ratio 7.8 Low 8-20 Calcium 9.0 mg/dL 8.1-9.9 Egfr Non- 84.7 >60 Egfr 108.9 >60 48 Lipid Profile (Trig/Chol/HDL) 07/19/2013 Triglycerides 105 mg/dL 40-200 Cholesterol 209 mg/dL High Less than 200 HDL Cholesterol 36 mg/dL Low 40-60 49 Cholesterol/HDL Ratio 5.8 Average High 1-4.44 LDL Cholesterol 152.0 High Less Than 100 50 Comp Metabolic Panel 07/19/2013 Sodium 132 mmol/L [...] Egfr Non- 113.2 >60 Egfr 145.6 >60 51 1 SEE RESULT BELOW Name: ALEXANDRU CHOPRA : [address]: Mindy Kunz MD Acct: [id number] Unit: [id number] AGE: 67 Location: [place] [address] Re02/11/18 SEX: M Status: ADM IN SPEC: [id number] DARBY: 02/11/[address] [facility] [address]: Sang Gutierrez MD REQ: [id number] RECD: 02/11/18 STATUS: MANDEEP RODRIGUEZ DR: Kevin Green III, MD _ SOURCE: URINE SPDESC: ORDERED: Urine Culture Procedure Result Reported Site Urine Culture Final 02/12/18- 922 ML No Growth (<1,000 CFU/mL) * ML - Main Lab . END OF REPORT DEPARTMENT OF PATHOLOGY, [address] [place] [address] Joselo Jamil M.D. Director [facility] # [id number] 2 Verbal to [id number] by [id number] at 2243 on 02/10/18. Results read back accurately. 3 Reference ranges based on room air. 4 [facility] Severe Sepsis and Septic Shock Management Bundle Measure requires all lactic acids initially measuring >2.0 mmol/L be repeated. 5 Because ethnic data is not always [...] 5 Kidney failure <15 (or dialysis) 6 Acute inflammation: >10.00 7 Please note: The following may produce a false positive D Dimer test: - Rheumatoid factor greater than 60 IU/ml - Plasma hemoglobin greater than 0.05 gm/dl - Bilirubin greater than 50 mg/dl - Lipids greater than 1000 mg/dl - FDP greater than 20 ug/ml 8 >100 to <200 pg/mL: likely compensated congestive heart failure (CHF) 200 to 400 pg/mL: likely moderate CHF >400 pg/mL: likely moderate to severe CHF 9 [facility] Shirrer: [id number] 10 Verbal to [id number] by [email or web address] at 1231 on 02/08/18. Results read back accurately. 11 Reference ranges based on room air. 12 SEE RESULT BELOW Name: ALEXANDRU CHOPRA Juju : [address]: Kelly Kaur MD Acct: [id number] Unit: [id number] AGE: 67 Location: ED Re02/08/18 SEX: M Status: REG ER SPEC: [id number] DARBY: 02/08/18-11[address] [facility] [address]: Kelly Kaur MD REQ: [id number] RECD: 02/08/18 STATUS: MANDEEP RODRIGUEZ DR: Kevin Green III, MD _ SOURCE: [facility]: ORDERED: Flu A B Request Procedure Result Reported Site Rapid Influenza A B Request Final 02/08/18- 1211 ML Specimen received for Influenza A/B Molecular testing * ML - Main Lab . END OF REPORT DEPARTMENT OF PATHOLOGY, [address] [place] [address] Joselo Jamil M.D. Director [facility] # [id number] 13 SEE RESULT BELOW Name: CHOPRAALEXANDRU : [address]: Kelly Kaur MD Acct: [id number] Unit: [id number] AGE: 67 Location: ED Re02/08/18 SEX: M Status: DEP ER SPEC: [id number] DARBY: 02/08/[address] [facility] [address]: Kelly Kaur MD REQ: [id number] RECD: 02/08/18 STATUS: MANDEEP RODRIGUEZ DR: Kevin Green III, MD _ SOURCE: BLOOD,VENO SPDESC: ORDERED: Blood Cult COMMENTS: Patient is On Antibiotics? YES Procedure Result Reported Site Aerobic Culture Bottle Final 02/13/18- 9 ML No Growth Day 5 Anaerobic Culture Bottle Final 02/13/18- 1159 ML No Growth Day 5 * ML - Main Lab . END OF REPORT DEPARTMENT OF PATHOLOGY, [address] [place] [address] Joselo Jamil M.D. Director [facility] # [id number] 14 [facility] Severe Sepsis and Septic Shock Management Bundle Measure requires all lactic acids initially measuring >2.0 mmol/L be repeated. 15 Please note: The following may produce a false positive D Dimer test: - Rheumatoid factor greater than 60 IU/ml - Plasma hemoglobin greater than 0.05 gm/dl - Bilirubin greater than 50 mg/dl - Lipids greater than 1000 mg/dl - FDP greater than 20 ug/ml 16 >100 to <200 pg/mL: likely compensated congestive heart failure (CHF) 200 to 400 pg/mL: likely moderate CHF >400 pg/mL: likely moderate to severe CHF 17 Interpretive information available on [employer] Test Catalog at [email or web address] 18 Because ethnic data is not always readily [...] 15-29 5 Kidney failure <15 (or dialysis) 19 Verbal to [id number] by [id number] at 1204 on 02/08/18. Results read back accurately. 20 Acute inflammation: >10.00 21 Critical Result CO2:42 Called to [id number] at: 12:04:32 by:[id number] Read back by:[email or web address] 22 Verbal to [id number] by [email or web address] at 1343 on 09/01/17. Results read back accurately. 23 Reference ranges based on room air. 24 [facility] Severe Sepsis and Septic Shock Management Bundle Measure requires all lactic acids initially measuring >2.0 mmol/L be repeated. 25 Because ethnic data is not always readily [...] 15-29 5 Kidney failure <15 (or dialysis) 26 Critical Result CO2:42 Called to [id number] at: 12:23:54 by:[id number] Read back by:[id number] 27 >100 to <200 pg/mL: likely compensated congestive heart failure (CHF) 200 to 400 pg/mL: likely moderate CHF >400 pg/mL: likely moderate to severe CHF 28 Desirable <150 Borderline high 150-199 High 200-499 Very High >500 29 Desirable <200 Borderline high 200-239 High >239 30 Low <40 Desirable: 40-60 High: >60 31 Desirable: <100 mg/dL Near Optimal: 100-129 mg/dL Borderline High: 130-159 mg/dL High: 160-189 mg/dL Very High: >189 mg/dL 32 Because ethnic data is not always readily [...] 15-29 5 Kidney failure <15 (or dialysis) 33 Serum levels of PSA measured using the [employer] DXI Hybritech immunoassay should not be interpreted [...] methods or kits cannot be used interchangeably. 34 Therapeutic target for the treatment of diabetes Mellitus patients is <7% HBA1C, and in selective patients <6.0%.Please refer to [place] [employer] Diabetic care guidelines for further information. 35 Desirable <150 Borderline high 150-199 High 200-499 Very High >500 36 Desirable <200 Borderline high 200-239 High >239 37 Low <40 Desirable: 40-60 High: >60 38 Desirable: <100 mg/dL Near Optimal: 100-129 mg/dL Borderline High: 130-159 mg/dL High: 160-189 mg/dL Very High: >189 mg/dL 39 Because ethnic data is not always readily [...] 15-29 5 Kidney failure <15 (or dialysis) 40 Desirable <150 Borderline high 150-199 High 200-499 Very High >500 41 Desirable <200 Borderline high 200-239 High >239 42 Low <40 Desirable: 40-60 High: >60 43 Desirable <100 Near Optimal 100-129 Borderline high 130-159 High 160-189 Very High >189 44 --- 06/20/141647 --- Platelet Count previously reported as: 233 10 3/ul 45 --- 06/20/141647 --- MPV previously reported as: 7 L um3 46 Serum levels of PSA measured using the [employer] [place] DXI Hybritech immunoassay should not be interpreted [...] or kits cannot be used interchangeably. 47 RUN DATE: 12/06/13 [facility] LAB LIVE PAGE 1 RUN TIME: [address] [place] [address] Specimen Inquiry Name: ALEXANDRU CHOPRA : [address]: Ishaan Maki MD Acct: [id number] Unit: [id number] AGE: 63 Location: [facility] Re12/05/13 SEX: M Status: REG REF SPEC: [id number] DARBY: 12/05/13- SUBM DR: Ishaan Maki MD REQ: [id number] RECD: 12/05/138 STATUS: CONG RODRIGUEZ DR: Kevin Green III, [...] performed at Main Lab DEPARTMENT OF PATHOLOGY, [address] [place] [address] Joselo Jamil M.D. Director [facility] Permit #[id number] 48 Because ethnic data is not always readily [...] 15-29 5 Kidney failure <15 (or dialysis) 49 HDL Interpretation: Undesirable: High Risk: Less than 40 mg/dL Desirable: Low Risk: Greater than 60 mg/dL 50 LDL Interpretation: Low Risk Optimal Level: LDL Less than 100 mg/dL Near or Above Optimal: LDL 100-129 mg/dL Borderline High Risk: LDL 130-159 mg/dL High Risk: LDL 160-189 mg/dL Very High Risk: LDL Greater than 189 mg/dL 51 Because ethnic data is not always readily [...] Date CPT Code Description Status Comment 03/11/2018 12715 Diffusing Capacity Completed 03/11/2018 38683 Plethysmography Determination Lung Completed Volumes & Per Airway Resist 03/11/2018 93290 Pulmonary Stress Testing[facility] Inc Measurement Completed Heart Rate, Oximetry 03/11/2018 67013 Pulmonary Function><Bronchodil Completed 02/11/2018 10157 ECHO Transthorasic Realtime 2D W Doppler Completed & Color Flow Hosp 08/06/2016 94842 Stress Test Completed 08/06/2016 70966 Myocardial Perfusion Imaging Tomographic Completed (Spect) Multiple Studies 08/01/2016 35190 ECHO Transthoracic, Real-Time 2D With Completed Doppler And Color Flow 07/30/2016 27025 Holter Monitor Review (24 hr)dr review & Completed interp only 07/29/2016 37420 ECG Monitor/Recording W/Visual Completed Superimposition Scanning 09/25/2014 71049 Diffusing Capacity Completed 09/25/2014 60966 Plethysmography Determination Lung Completed Volumes & Per Airway Resist 09/25/2014 78810 Pulmonary Function><Bronchodil Completed 12/05/2013 Colonoscopy Completed 10/19/2010 Colonoscopy Completed Colon polyps Encounters Type Date Location Provider CPT E/M Dx Office Visit 04/16/2018 [facility] Chuck Cook, [address] J32.2 10:10a Infectious Diseases Andrew J32.1 Office Visit 04/08/2018 9:15a Pul[place] [address] J44.9 [facility] J96.10 Office Visit 03/26/2018 4:00p [facility] [place] [address] J01.90 Dyana R04.2 Office Visit 02/22/2018 2:40p [facility] [place] [address] Z87.891 [place] J44.9 Office Visit 02/18/2018 1:45p Pul[facility] [address] J44.9 [facility] R09.02 Z87.891 Office Visit 02/15/2018 8:38a [facility], [place] [address] J44.1 Hospitalists I10 A49.8 Office Visit 02/15/2018 2:30p Pulmon[place] [address] J44.1 [facility] F17.201 R06.02 R09.02 Z99.81 Office Visit 02/14/2018 8:37a [facility],[place] [address] J44.1 Hospitalists I10 A49.8 Office Visit 02/13/2018 2:30p Pul[facility] [address] J44.1 [facility] F17.201 R06.02 Z99.81 Office Visit 02/13/2018 8:35a [facility], Mindy Kunz, 57725 J44.1 Hospitalists M.D. I10 Office Visit 02/12/2018 8:29a [facility] Assoc, Mindy Kunz, 00557 J44.1 Hospitalists M.D. I10 Office Visit 02/11/2018 [facility] [address] J44.1 Assoc, Hospitalists M.D. I10 Office Visit 02/11/2018 12:00p Pul[place] [address] F17.201 [facility] J44.1 J96.11 J96.12 Office Visit 11/30/2017 3:20p [facility] Internal Medicine Kevin Green, 52415 R10.13 - Mathieu Morales G43.C0 J44.9 Office Visit 09/09/2017 2:00p [facility] Internal Medicine Kevin Green, 83064 R10.13 - Mathieu Morales J44.1 Office Visit 09/04/2017 [facility] Maria R Real, 80099 J96.02 10:58a Assoc, [employer]ICER Hospitalists J44.1 R10.13 Z72.0 Office Visit 09/03/2017 3:31p [place] [address] R10.13 J44.1 G43.C0 [facility] [address] J96.02 10:57a Assoc, [employer] OFFICER Hospitalists J44.1 R10.13 Z72.0 Office Visit 09/02/2017 10:57a [facility] Assoc,pc Diana King, 61459 J96.02 Hospitalists N.P. J44.1 R10.13 Z72.0 Office Visit 09/01/2017 10:56a [facility] Diana King, 29320 J96.02 Hospitalists N.P. J44.1 Z72.0 Office Visit 07/22/2017 2:40p [facility] Internal Medicine Kevin Green, 45908 J44.9 - Mathieu Morales S06.0x9D Office Visit 02/23/2017 3:00p [facility] Internal Medicine Kevin Green, 53816 Z00.00 - Mathieu Morales J44.9 E78.2 F17.210 R60.0 Office Visit 01/28/2016 1:00p [facility] Internal Medicine Kevin Green, 22824 Z00.00 - Dyana Morales J44.9 F17.210 Z80.42 E78.2 R73.01 Z23 R35.0 Office Visit 07/17/2015 2:40p [facility] Internal Medicine Kevin Green, 67567 J44.9 - Dyana Morales F17.210 Z12.2 Z23 Office Visit 05/17/2015 12:40p [facility] Internal Medicine - Anna Jin [address] 381.00 Dyana Morales Office Visit 03/02/2015 9:30a [facility] [address] [facility] 305.1 278.00 Office Visit 02/13/2015 9:00a [facility] Internal Medicine - Kevin Green, [address]689 496 Dyana Morales Office Visit 10/06/2014 2:00p [facility] [address] [facility] 305.1 278.00 780.59 Office Visit 09/12/2014 3:40p [facility] Internal Medicine - Kevin Green, [address] 496 Dyana Morales v03.82 Office Visit 06/07/2014 9:00a [facility] Internal Medicine Kevin Green, 65311 V70.0 - Dyana Morales 496 272.2 784.0 V73.89 V16.42 V81.2 Office Visit 04/10/2014 3:40p [facility] Internal Medicine - Kevin Green, [address] 496 Dyana Morales 784.0 Office Visit 12/08/2013 10:00a [facility] Kevin Green, [address]70 272.2 - Dyana Morales 496 784.0 305.1 Office Visit 08/08/2013 4:20p [facility] Walalce Cabrales, 17000 272.2 - Dyana Morales 276.1 Office Visit 07/19/2013 11:20a [facility] Wallace Cabrales, 82692 784.0 - Dyana Morales 780.52 728.85 Office Visit 05/09/2013 3:20p [facility] Wallace Cabrales M.D. 61865 496 - [place] 272.2 784.0 305.1 278.00 Office Visit 05/27/2012 8:30a [facility] Alexandru Hui, 23290 784.0 Services Of [facility] Andrew 723.1 Plan of Care Future Appointment(s):04/30/2018 11:30 am - Chuck Cook M.D. at [facility] For Infectious Kfggaxzo81/07/2018 8:40 am - Johnson Yoo NP at [facility]05/21/2018 11:30 am - Sapna Torres MD at [facility]04/22/2018 - Johnson Yoo, NPR10.9 Unspecified abdominal painNew Medication:Ranitidine 150 Maximum Strength 150 mgComments:Continue taking the omeprazole. I have added the ranitidine that you can take twice daily as needed.Referral:Ishaan Maki MD, IiftfrpxliarjdahJ05.1 Chronic frontal sinusitisNew Xrays:CT Sinuses W/OComments: Continue taking the antibiotic that Dr. 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
--- OUTSIDE RECORDS SUMMARY | 2018-05-08 22:09 | XMS REPORT ---
:1950 External Reference #:[id number] Author Organization [facility] Address [address] [place] [address] [place] [address] Phone [phone] Care Team Providers Name Role Phone Sabrina Pavon MD Primary Care Physician Unavailable Payers Type Date Identification Numbers Payment Provider Subscriber Commercial Effective: Policy Number: [id number] Aries Martel/Howard Alexandru Chopra 2016 Options PayID: [id number] [address] [address] Attn: [place] [address] Medix[employer] Part B Expires: 2016 Policy Number: [id number] Medicare Alexandru Chopra PayID: [id number] [address] [place] [address] Problems Date Description Provider Status Onset: 05/09/2013 [...] Form Strength Qnty SIG Indications Ordering Provider Doxycycline 04/16 Active Capsules 100mg 60cap 1 by mouth J32.2 Chuck Monohydrate s twice a day D. with food Andrew Fiore Fluticasone 04/16 Active Suspension 50mcg/Act 16uni inhale two J32.2 Chuck Propionate ts sprays in D. each nostril Macarena, every day M.D. Moxifloxacin 04/15 Hx Tablets 400mg 10tab 1 tablet once Johnson HCL /2017 s daily x 10 Fredo, NURSE RECRUITER - days - pt 04/25 never started Fluticasone 03/23 Active Suspension 50mcg/Act 48gm 1 spray each Johnson Propionate nostril daily Fredo, NURSE RECRUITER as needed Proair HFA 03/11 Active Aerosol 108(90Bas 8.500 1 puff every Sapna e) gm 6 hours as Brian, mcg/Act needed Amlodipine 03/01 Active Tablets 10mg 30tab 1 by mouth Johnson Besylate /2017 s every day Fredo, NURSE RECRUITER Oxycodone HCL 12/03 Active Tablets 5mg 30tab 1 by mouth Johnson /2017 s every 12 Fredo, NURSE RECRUITER hours as needed headache Ibuprofen 11/11 Active Tablets 600mg 90tab Take 1 Tablet Kevin E. /2017 s By Mouth Norma, Twice A Day M.D. as Needed Wheelchair 07/22 Active Misc 1unit lightweight J44.9 Kevin E. /2016 s folding [place] M.D. dx: COPD, chronic dyspnea with exertion Shower Chair 12/26 Active use with J44.9 Kevin E. /2015 bathing for kenan Green sx M.D. Nebulizer 07/20 Active Kit 1unit use as Kevin E. Kit/Tubing/Nitza /2014 s directed dx: nava Green j44.9 M.D. Gabapentin 01/12 Active Capsules [...] Norma, Mouth AT M.D. Bedtime as Needed Butalbital/Jj Active Tablets 50-325-40 16tab Take 1 Tablet R51 Kevin E. taminophen/Caf /0000 mg s By Mouth juli Green Twice A Day M.D. *No More Than 2 Days/Week* Anoro Ellipta Active Aerosol 62.5-25mc 1 inhalation Unknown /0000 g/Inh daily Tylenol Extra Active Tablets 500mg 2 by mouth Unknown Strength /0000 every 6 hours as needed Albuterol Active Nebulizer Via Unknown Sulfate nebulizer, as needed Omeprazole Active Capsules DR 20mg 60cap Take 2 Kevin E. / s Capsules By Norma, Mouth Daily M.D. AT 7:30Am Levofloxacin 04/15 Hx Tablets 500mg 10tab one by mouth J01.90 Johnson s daily for 10 SEAN Yoo - days 04/15 Doxycycline 04/12 Hx Capsules 100mg 14cap one tablet J01.90 Johsnon Hyclate /2017 s twice daily Fredo, NURSE RECRUITER - for 7 days. 04/15 Doxycycline 03/30 Hx Capsules 100mg 20cap one tablet J01.90 Johnson Hyclate s twice daily Fredo NURSE RECRUITER - for 10 days. 04/09 Levofloxacin 03/26 Hx Tablets 500mg 10tab one by mouth J01.90 Johnson s daily for 10 Fredo, NURSE RECRUITER - days 03/30 Levalbuterol 02/25 Hx Nebulizer 0.63mg/3M 225ml use 3-4x Sapna HCL L daily as Brian, - needed for 03/11 shortness of breath Albuterol 02/24 Hx Nebulizer 0.63mg/3M 675ml 1 unit, nebl, Sapna Sulfate /2017 L every 6 Brian, - hours, as 02/25 needed Levalbuterol 02/22 Hx Aerosol 45mcg/Act 15gm 2 puffs every J44.9 Johnson Tartrate 4-6 hours as Fredo NURSE RECRUITER - needed for 03/11 SOB Incruse 02/20 Hx Aerosol 62.5mcg/I 30uni inhale one Sapna Ellipta nh ts puff by mouth Brian, - every day 02/25 Incruse 01/05 Hx Aerosol 62.5mcg/I 30uni inhale 1 puff Kevin E. Ellipta nh ts by mouth Norma, - every day M.D. 02/18 Lioresal 10MG 10/27 Hx Tablet 90tab Take 2 Kevin E. s Tablet By Norma, - Mouth Twice M.D. 02/18 Daily Or Needed--not currently taking Ipratropium 05/30 Hx Solution 0.5-2.5(3 90uni Inhale 1 Vial Kevin E. [place] )mg/3ML ts Via Nebulizer Norma rol Sulfate - Twice Daily M.D. 02/18 as Needed For Shortness Of Breath Ipratropium 05/30 Hx Solution 0.5-2.5(3 540un Inhale 1 Vial Kevin E. [place] )mg/3ML its Via Nebulizer Norma rol Sulfate - Twice Daily M.D. 02/18 as Needed For Shortness Of Breath Flomax 01/27 Hx Capsules 0.4mg 90cap 1 by mouth Z80.42 Kevin Curran s every day Eloisa Green M.D. 07/20 Atrovent HFA 11/20 Hx Aerosol 17mcg/Act 12.9u 1 unit, inhl, Kevin E. nits twice a day Eloisa Green M.D. 01/27 Incruse 11/05 Hx Aerosol 62.5mcg/I 1unit 1 inhalation Kevin Curran Ellip nh s every day Eloisa Green M.D. 11/20 Neomycin/Polym 05/17 Hx Suspension 3.5-64257 1vial Finished 381.00 Anna yxin/Hydrocort /2014 -1 daisy Jin - Andrew 07/16 [facility] NTS Step 1 03/02 Hx Patches 21mg/24HR 30uni 1 pach 305.1 Sapna /2014 24HR ts topically Brian, - every day 05/17 [facility] Nicotine 03/02 Hx Gum 4mg 60uni not taking 1 F17.210 Sapna Polacrilex /2014 ts gum, every 6 Brian, - hours as 01/27 needed Nicotine 10/06 Hx Patches 21mg/24HR 30uni 1 patch over 305.1 Kevin Curran /2013 24HR ts skin every Norma, - day M.DAbdifatah 05/17 Nicotine 10/06 Hx Gum 2mg 60uni 1 gum every 6 305.1 Kevin Curran Polacrilex /2013 ts hours as Norma - needed M.DAbdifatah 05/17 Breo Ellipta 09/12 Hx Aerosol 100-25mcg 1unit 1 puff daily 496 Kevin EAbdifatah /2013 /Inh s Eloisa Green M.Waqas 02/13 Spiriva 09/12 Hx Capsules 18mcg 90cap Inhale 1 J44.9 Kevin Curran Handihaler s Capsule (2 Norma, - Puffs) Via M.D. 02/18 Handihaler Once Daily AT The Same Time Every Day Duoneb 06/22 Hx Solution 0.5-2.5(3 90uni Inhale 1 Vial Kevin E. /2013 )mg/3ML ts Via Nebulizer Norma, - Twice Daily M.D. 05/30 as Needed For Shortness Of Breath Advair HFA 06/07 Hx Aerosol 115-21mcg 12uni Inhale 2 J44.9 Kevin E. /2013 /Act ts Puffs By Norma, - Mouth Twice M.D. 02/18 Daily. Rinse Mouth After Use. Symbicort 04/10 Hx Aerosol 160-4.5mc 1unit 2 puffs by Kevin E. /2013 g/Act s mouth twice a Norma, - day M.D. 06/07 Fluticasone 08/03 Hx Suspension 50mcg/Act 32gm 1 spray each Kevin EAbdifatah nostril daily Norma, - as needed M.D. 02/18 Oxycodone HCL 02/25 Hx Tablets 5mg 30tab 1 by mouth Kevin E. /2012 s every 12 Norma, - hours as M.D. 07/16 needed headache Fioricet 11/12 Hx Tablets 50-325-40 16tab 1 twice a day Alexandru SAbdifatah /2012 mg s max 2 Ez, - days/week M.D. 05/09 Spiriva Hx Capsules 18mcg Unknown Handihaler /0000 - 09/21 Fluticasone Hx Suspension 50mcg/Act Unknown Propionate /0000 - 08/03 Flovent HFA Hx Aerosol 110mcg/Ac 1unit 2 puffs bid Kevin E. / t s Norma, - M.D. 09/11 Ibuprofen Hx Tablets 600mg 60tab Take 1 Tablet Kevin E. /0000 s By Mouth Norma, - Twice A Day M.D. 09/07 as Needed Prednisone Hx Tablets 20mg Take 2 Tabs Unknown /0000 Daily For 4 - Days, 1&1/2 11/29 Daily For Days, 1 Daily For 5 Da Ventolin HFA Hx Aerosol 108(90Bas 18uni Inhale 2 J44.9 Kevin E. / e) ts Puffs By Norma, - mcg/Act Mouth 4 Times M.D. 02/17 Daily as Needed Levaquin Hx Tablets 750mg [...] (20MG) Ipratropium Hx Solution 0.02% Inhale Unknown [place] /0000 Contents Of 1 - Vial Via 04/07 Inhalation Every 4 Hours as Needed For S Levalbuterol Hx Nebulizer 1.25mg/0. Inhale 1 Vial Unknown HCL /0000 5ML Via Nebulizer - Every 2 Hours 02/25 as Needed For Dyspnea Medications Administered in Office Medication Date Status Form Strength Qnty SIG Indications Ordering Provider Inj, Administered Injection Gerber D. Regadenoson, 016 Andrew Zavala 0.1 MG Technetium TC Administered Injection Gerber DAbdifatah 99M 016 Andrew Zavala Tetrofosmin, Per Unit Dose Up To 40 Millicuries Technetium TC Administered Injection Gerber DAbdifatah 99M 016 Andrew Zavala Tetrofosmin, Per Unit Dose Up To 40 Millicuries Immunizations CPT Code Status Date Vaccine Lot # [id number] Given 08/20/2017 Influenza Virus Vaccine, Quadrivalent, Split, Preservative Free 22638 Given 07/29/2016 Influenza Virus Vaccine, Quadrivalent, Split [id number] Virus, [place] Use [address] Given 07/17/2015 Influenza Virus Vaccine, Quadrivalent, Split, [id number] Preservative Free 42690 Given 09/12/2014 Pneumococcal Conjugate Vaccine 13 Valent For [id number] Intramuscular Use 53099 Given 08/23/2014 Flu Vaccine Split Virus Preservative Free For Indiv 3Yr Older [id number] Given 08/29/2013 Flu Vaccine NOS 26632 Given 09/10/2011 Pneumonia Vaccine 79677 Given 06/04/2011 Tdap - Tetanus/Diptheria/Acellular Pertussis Vital Signs Date Vital Result Comment 04/16/2018 Height 65 inches 5'5" Weight 149.50 [...] Color Straw Urine Appearance Clear Urine Specific [place] 1.004 Low 1.010-1.030 Urine pH 7.0 5-9 [...] 3 Hco3 Arterial 33.5 mmol/L High 19-31 Laboratory test finding 02/10/2018 D Dimer Quantitative < 200 ng/mL Less Than 230 4 B-Type Natriuretic Peptide BNP 122 pg/mL High 5 CBC Auto Diff 02/10/2018 White Blood Count [...] Non- 147.7 >60 Egfr 189.9 >60 7 Inr/Protime 02/10/2018 Inr 0.98 0.77-1.02 Laboratory test finding 02/10/2018 C Reactive Protein 1.24 mg/L < 5.00 8 Troponin-I (TnI) 0.01 ng/mL <0.04 Rapid Influenza A & B 02/08/2018 Influenza A Molecular NEGATIVE Negative 9 Molecular Influenza B Molecular NEGATIVE Negative Laboratory test 02/08/2018 Blood Culture SEE RESULT BELOW 10 finding CKMB 02/08/2018 CKMB ng/mL 14.0 ng/mL High 0.6-6.3 11 Laboratory test 02/08/2018 Creatine Kinase(CK) 154 U/L 10-223 finding C Reactive Protein 4.67 mg/L < 5.00 12 Arterial Blood Gas 02/08/2018 Fio2 3 PH Arterial 7.34 Low 7.35-7.45 Pco2 Arterial 82 mmHg High 35-45 13 Po2 Arterial 133 mmHg High 80-100 O2 Saturation Arterial 99.2 % High 95-98 Base Excess Arterial 13.8 High -2.0-2.0 14 Hco3 Arterial 35.6 mmol/L High 19-31 Laboratory test 02/08/2018 Rapid Influenza A B SEE RESULT BELOW 15 finding Antigen CBC Auto Diff 02/08/2018 White [...] Blood Cells % 0.1 Comp Metabolic Panel 02/08/2018 Sodium 130 mmol/L [...] Egfr Non- 136.2 >60 Egfr 175.2 >60 16 Co2 Carbon Dioxide 42 mmol/L High 22-32 17 Anion Gap 4 mmol/L 2-11 Laboratory test finding 02/08/2018 Partial Thrombo Time 29.5 seconds 26.0 -36.3 PTT D Dimer Quantitative < 200 ng/mL Less Than 230 18 B-Type Natriuretic Peptide BNP 41 pg/mL 19 Procalcitonin 0.1 ng/mL <0.6 20 Troponin-I (TnI) 0.01 ng/mL <0.04 Inr/Protime 02/08/2018 Inr 0.94 0.77-1.02 Laboratory test finding 02/08/2018 Lactic Acid 0.9 mmol/L 0.5-2.0 21 Laboratory test finding 12/07/2017 Occult Blood - negative Stool CBC Auto Diff 09/01/2017 White Blood Count [...] 0-2 Nucleated Red Blood Cells % 0 Arterial Blood Gas 09/01/2017 Fio2 3 Vent Mode Liters PH Arterial 7.38 7.35-7.45 Pco2 Arterial 72 mmHg High 35-45 22 Po2 Arterial 75 mmHg Low 80-100 O2 Saturation Arterial 97.4 % 95-98 Base Excess Arterial 13.4 High -2.0-2.0 23 Hco3 Arterial 35.2 mmol/L High 19-31 Inr/Protime 09/01/2017 Inr 0.98 0.89-1.11 Laboratory test [...] Blood Cells % 0.1 Laboratory test finding 07/29/2016 TSH (Thyroid Stim Horm) 1.93 mcIU/mL 0.34-5.60 Magnesium 2.1 mg/dL 1.9-2.7 Comp Metabolic Panel 07/29/2016 Sodium 133 mmol/L [...] Egfr 141.9 >60 32 Laboratory test finding 01/29/2016 PSA Screening 0.416 [...] Non- 100.8 >60 Egfr 129.6 >60 39 Laboratory test finding 06/20/2014 PSA Screening 0.526 ng/mL 0-4.000 40 Hepatitis C Antibody Nonreactive Nonreactive CBC With Manual Diff 06/20/2014 White Blood Count 10.7 10^3/uL 4.8-10.8 Red Blood Count 5.54 10^6/uL High 4.0-5.4 Hemoglobin 18.0 g/dL 14.0-18.0 Hematocrit 52 % 42-52 Mean Corpuscular Volume 94 fL 80-94 Mean Corpuscular Hemoglobin 33 pg High 27-31 Mean Corpuscular HGB Conc 35 g/dL 31-36 Red Cell Distribution Width 14 % 10.5-15 Platelet Count 233 10^3/uL 150-450 41 Mean Platelet Volume 7 um3 7.4-10.4 42 Abs Neutrophils 7.8 10^3/uL High 1.5-7.7 Abs [...] 2 % 0-6 RBC Morphology Normal Normal Lipid Profile (Trig/Chol/HDL) 06/20/2014 Triglycerides 124 mg/dL 43 Cholesterol 202 mg/dL 44 HDL Cholesterol 36.6 mg/dL 45 LDL Cholesterol 141 mg/dL 46 Surgical Pathology 12/05/2013 S RUN DATE: 12/06/ [...] [address]: Mindy Kunz MD Acct: [id number] Unit: [id number] AGE: 67 Location: [place] [address] Re02/11/18 SEX: M Status: ADM IN SPEC: [id number] DARBY: 02/11/18-36 [facility] DR: Sang Gutierrez MD REQ: [id number] RECD: 02/11/18 STATUS: MANDEEP RODRIGUEZ DR: Kevin Green III, MD _ SOURCE: URINE SPDESC: ORDERED: Urine Culture Procedure Result Reported Site Urine Culture Final 02/12/18- 922 ML No Growth (<1,000 CFU/mL) * ML - Main Lab . END OF REPORT DEPARTMENT OF PATHOLOGY, [address] [place] [address] Joselo Jamil M.D. Director LISA # [id number] 2 Verbal to [id number] by [email or web address] at 2243 on 02/10/18. Results read back accurately. 3 Reference ranges based on room air. 4 Please note: The following may produce a false positive D Dimer test: - Rheumatoid factor greater than 60 IU/ml - Plasma hemoglobin greater than 0.05 gm/dl - Bilirubin greater than 50 mg/dl - Lipids greater than 1000 mg/dl - FDP greater than 20 ug/ml 5 >100 to <200 pg/mL: likely compensated congestive heart failure (CHF) 200 to 400 pg/mL: likely moderate CHF >400 pg/mL: likely moderate to severe CHF [address] [facility] [place] Severe Sepsis and Septic Shock Management Bundle [...] (or dialysis) 8 Acute inflammation: >10.00 9 Target Aircraft Technician: [id number] 10 SEE RESULT BELOW Name: ALEXANDRU CHOPRA : [address]: Kelly Kaur MD Acct: [id number] Unit: [id number] AGE: 67 Location: ED Re02/08/18 SEX: M Status: DEP ER SPEC: [id number] DARBY: 02/08/[address]: Kelly Kaur MD REQ: [id number] RECD: 02/08/18 STATUS: MANDEEP RODRIGUEZ DR: Kevin Green III, MD _ SOURCE: BLOOD,VENO SPDESC: ORDERED: Blood Cult COMMENTS: Patient is On Antibiotics? YES Procedure Result Reported Site Aerobic Culture Bottle Final 02/13/181158 ML No Growth Day 5 Anaerobic Culture Bottle Final 02/13/181158 ML No Growth Day 5 * ML - Main Lab . END OF REPORT DEPARTMENT OF PATHOLOGY, [address] [place] [address] Joselo Jamil M.D. Director [facility] # [id number] 11 Critical Result CO2:42 Called to [id number] at: 12:04:32 by:[email or web address] Read back by:[id number] 12 Acute inflammation: >10.00 13 Verbal to [id number] by [id number] at 1231 on 02/08/18. Results read back accurately. 14 Reference ranges based on room air. 15 SEE RESULT BELOW Name: CHOPRAALEXANDRU : [address]: Kelly Kaur MD Acct: [id number] Unit: [id number] AGE: 67 Location: ED Re02/08/18 SEX: M Status: REG ER SPEC: [id number] DARBY: 02/08/18-1140 [facility] DR: Kelly Kaur MD REQ: [id number] RECD: 02/08/18 STATUS: MANDEEP RODRIGUEZ DR: Kevin Green III, MD _ S[facility]: ORDERED: Flu A B Request Procedure Result Reported Site Rapid Influenza A B Request Final 02/08/18- 1211 ML Specimen received for Influenza A/B Molecular testing * ML - Main Lab . END OF REPORT DEPARTMENT OF PATHOLOGY, [address] [place] [address] Joselo Jamil M.D. Director [facility] # [id number] 16 Because ethnic data is not always readily [...] 15-29 5 Kidney failure <15 (or dialysis) 17 Verbal to [id number] by [email or web address] at 1204 on 02/08/18. Results read back accurately. 18 Please note: The following may produce a false positive D Dimer test: - Rheumatoid factor greater than 60 IU/ml - Plasma hemoglobin greater than 0.05 gm/dl - Bilirubin greater than 50 mg/dl - Lipids greater than 1000 mg/dl - FDP greater than 20 ug/ml 19 >100 to <200 pg/mL: likely compensated congestive heart failure (CHF) 200 to 400 pg/mL: likely moderate CHF >400 pg/mL: likely moderate to severe CHF 20 Interpretive information available on [employer] Lab Test Catalog at [email or web address] [address] [facility] [place] Severe Sepsis and Septic Shock Management Bundle Measure requires all lactic acids initially measuring >2.0 mmol/L be repeated. 22 Verbal to KILEY by [email or web address] at 1343 on 09/01/17. Results read back accurately. 23 Reference ranges based on room air. 24 [facility] [place] Severe Sepsis and Septic Shock Management Bundle [...] dialysis) 26 Critical Result CO2:42 Called to MEERA at: 12:23:54 by:[id number] Read back by:[email or web address] 27 >100 to <200 pg/mL: likely compensated [...] Serum levels of PSA measured using the marshallindex DXI Hybritech immunoassay should not be interpreted [...] and in selective patients <6.0%.Please refer to [place] [employer] Diabetic care guidelines for further [...] 5 Kidney failure <15 (or dialysis) 40 Serum levels of PSA measured using the Sarita JoinMe@ DXI Hybritech immunoassay should not be interpreted [...] methods or kits cannot be used interchangeably. 41 --- 06/20/141647 --- Platelet Count previously reported as: 233 10 3/ul 42 --- 06/20/141647 --- MPV previously reported as: 7 L um3 43 Desirable <150 Borderline high 150-199 High 200-499 Very High >500 44 Desirable <200 Borderline high 200-239 High >239 45 Low <40 Desirable: 40-60 High: >60 46 Desirable <100 Near Optimal 100-129 Borderline high 130-159 High 160-189 Very High >189 47 RUN DATE: 12/06/13 [facility] LAB LIVE PAGE 1 RUN TIME: [address] [place] [address] Specimen Inquiry Name: ALEXANDRU CHOPRA : [address]: Ishaan Maki MD Acct: [id number] Unit: [id number] AGE: 63 Location: [facility] Re12/05/13 SEX: M Status: REG REF SPEC: [id number] DARBY: 12/05/13- SUBM DR: Ishaan Maki MD REQ: [id number] RECD: 12/05/13 STATUS: CONG RODRIGUEZ DR: Kevin [...] performed at Main Lab DEPARTMENT OF PATHOLOGY, [address] [place] [address] Joselo Jamil M.D. Director [facility] Permit #[id number] 48 Because ethnic data is not always [...] Date CPT Code Description Status Comment 03/11/2018 01717 Diffusing Capacity Completed 03/11/2018 40474 Plethysmography Determination Lung Completed Volumes & Per Airway Resist 03/11/2018 17894 Pulmonary Stress Testing, Inc Measurement Completed Heart Rate, Oximetry 03/11/2018 53964 Pulmonary Function><Bronchodil Completed 02/11/2018 37503 ECHO Transthorasic Realtime 2D W Doppler Completed & Color Flow Hosp 08/06/2016 77483 Stress Test Completed 08/06/2016 24421 Myocardial Perfusion Imaging Tomographic Completed (Spect) Multiple Studies 08/01/2016 32477 ECHO Transthoracic, Real-Time 2D With Completed Doppler And Color Flow 07/30/2016 10541 Holter Monitor Review (24 hr)dr review & Completed interp only 07/29/2016 49217 ECG Monitor/Recording W/Visual Completed Superimposition Scanning 09/25/2014 24215 Diffusing Capacity Completed 09/25/2014 32021 Plethysmography Determination Lung Completed Volumes & Per Airway Resist 09/25/2014 39442 Pulmonary Function><Bronchodil Completed 12/05/2013 Colonoscopy Completed 10/19/2010 Colonoscopy Completed Colon polyps Encounters Type Date Location Provider CPT E/M Dx Office Visit 04/08/2018 [facility] [address] J44.9 9:15a [facility] J96.10 Office Visit 03/26/2018 4:00p [facility] [place] [address] J01.90 Dyana R04.2 Office Visit 02/22/2018 2:40p [facility] [place] [address] Z87.891 Dyana J44.9 Office Visit 02/18/2018 1:45p [facility] [address] J44.9 [facility] R09.02 Z87.891 Office Visit 02/15/2018 2:30p [facility] [place] [address] J44.1 [facility] F17.201 R06.02 R09.02 Z99.81 Office Visit 02/15/2018 8:38a [facility], [place] [address] J44.1 Hospitalists I10 A49.8 Office Visit 02/14/2018 8:37a [facility], [place] [address] J44.1 Hospitalists I10 A49.8 Office Visit 02/13/2018 8:35a [facility],breana Guill[place], [address] J44.1 Hospitalists Andrew I10 Office Visit 02/13/2018 2:30p [facility] [address] J44.1 [facility] F17.201 R06.02 Z99.81 Office Visit 02/12/2018 8[facility] Mindy Kunz, [address] J44.1 Hospitalists Andrew I10 Office Visit 02/11/2018 8[facility]a [facility] [place] [address] J44.1 Assoc, Hospitalists Andrew I10 Office Visit 02/11/2018 12:00p [facility] [place] [address] F17.201 [facility] J44.1 J96.11 J96.12 Office Visit 11/30/2017 3:20p [facility] Internal Medicine Kevin Green, 38918 R10.13 - Mathieu Morales G43.C0 J44.9 Office Visit 09/09/2017 2:00p [facility] Internal Medicine Kevin Green, 71672 R10.13 - Mathieu Morales J44.1 Office Visit 09/04/2017 [facility] Maria R Real, 8[address] J96.02 10:58a Assoc, NURSE RECRUITER Hospitalists J44.1 R10.13 Z72.0 Office Visit 09/03/2017 3:31p [place] [address] R10.13 J44.1 G43.C0 Office Visit 09/03/2017 [facility] Maria R Real, 39793 J96.02 10:57a Assoc, NURSE RECRUITER Hospitalists J44.1 R10.13 Z72.0 Office Visit 09/02/2017 10:57a [facility] Diana King, 737[address] J96.02 Hospitalists N.PAbdifatah J44.1 R10.13 Z72.0 Office Visit 09/01/2017 10:56a [facility] Diana King, [address] J96.02 Hospitalists N.PAbdifatah J44.1 Z72.0 Office Visit 07/22/2017 2:40p [facility] Internal Medicine Kevin Green, 8[address] J44.9 - Mathieu Morales S06.0x9D Office Visit 02/23/2017 3:00p [facility] Internal Medicine Kevin Green, 97111 Z00.00 - Mathieu Morales J44.9 E78.2 F17.210 R60.0 Office Visit 01/28/2016 1:00p [facility] Internal Medicine Kevin Green, 757[address] Z00.00 - Dyana Morales J44.9 F17.210 Z80.42 E78.2 R73.01 Z23 R35.0 Office Visit 07/17/2015 2:40p [facility] Internal Medicine Kevin Green, 64806 J44.9 - Dyana Morales F17.210 Z12.2 Z23 Office Visit 05/17/2015 12:40p [facility] Internal Medicine - Anna Jin [address] 381.00 Dyana Morales Office Visit 03/02/2015 9:30a [facility] [address] [facility] 305.1 278.00 Office Visit 02/13/2015 9:00a [facility] Internal Medicine Kevin Green, [address] 496 Dyana Morales Office Visit 10/06/2014 2:00p [facility] [address] 496 [facility] 305.1 278.00 780.59 Office Visit 09/12/2014 3:40p [facility] Internal Medicine Kevin Green, [address] 496 Dyana Morales v03.82 Office Visit 06/07/2014 9:00a [facility] Internal Medicine Kevin Green, 01348 V70.0 - Dyana Morales 496 272.2 784.0 V73.89 V16.42 V81.2 Office Visit 04/10/2014 3:40p [facility] Internal Medicine Kevin Green, [address] 496 Dyana Morales 784.0 Office Visit 12/08/2013 10:00a [facility] Internal Medicine Kevin Green, 47792 272.2 - Dyana Morales 496 784.0 305.1 Office Visit 08/08/2013 4:20p [facility] Internal Medicine Wallace Cabrales, 03838 272.2 - Dyana Morales 276.1 Office Visit 07/19/2013 11:20a [facility] Internal Medicine Wallace Cabrales, 394[address] 784.0 - Dyana Morales 780.52 728.85 Office Visit 05/09/2013 3:20p [facility] Internal Medicine Wallace Cabrales M.D. 45762 496 - Dyana 272.2 784.0 305.1 278.00 Office Visit 05/27/2012 8:30a [facility] Alexandru CelinaAbdifatah [place], [address] 784.0 Services [facility] Andrew 723.1 Plan of Care Future Appointment(s):04/30/2018 11:30 am - Chuck Fiore M.D. at [facility] Kqbcltra07/07/2018 8:40 am - [place] NP at [facility] Internal Medicine - [email or web address]/03/2018 11:30 am - Sapna Torres MD at [facility]04/16/2018 - Chuck Fiore M.D.J32.2 Chronic ethmoidal sinusitisNew Medication:Doxycycline Monohydrate 100 mgFluticasone Propionate 50 mcg/ActComments:extend doxy to six weeks, add steroid nasal spray, fu 2 weeks. May need another ENT eval for scope if not improving.Follow up:2 dldfbE92.1 Chronic frontal sinusitis
[2018-05-08] MEDS ORDERED: Butalb/Acetamin/Caff TAB* 1 TAB PO ONE (22:43)
--- NOTE | 2018-05-08 22:47 | ED ---
Throat Pain/Nasal Congestion - HPI Summary HPI Summary: Patient complains of 5 minutes of the past taxes after blowing nose today. Bleeding controlled upon presentation to the ED. Dr. Martinez ENT called distal to state the patient has history of sphenoid sinus tumor, and then he believes the bleeding is from the tumor. No anti-coag. Denies any other trauma, symptoms or pain. Medical history is migraines, HTN, COPD. 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 Onset/Duration: Sudden Onset Severity: Moderate Associated Signs And Symptoms: Positive: Negative Cough: None - Allergies/Home Medications Allergies/Adverse Reactions: Allergies Allergy/AdvReac Type Severity Reaction Status Date / Time meperidine [From Demerol] Allergy Intermediate Hallucinati Verified 04/26/18 14: 17 ons warfarin Allergy Intermediate Unknown Verified 04/26/18 14:17 Reaction Details cefuroxime [From Ceftin] Allergy Difficulty Verified 04/26/18 14:17 Breathing amoxicillin [From Augmentin] AdvReac GI Upset Verified 04/26/18 14:17 clavulanic acid AdvReac GI Upset Verified 04/26/18 14:17 [From Augmentin] PMH/Surg Hx/FS Hx/Imm Hx Endocrine/Hematology History: Denies: Hx Anticoagulant Therapy, Hx Diabetes, Hx Thyroid Disease Cardiovascular History: Reports: Hx Hypertension Denies: Hx Pacemaker/ICD Respiratory History: Reports: Hx Chronic Obstructive Pulmonary Disease (COPD), Other Respiratory Problems/Disorders Denies: Hx Asthma GI History: Reports: Hx Gastroesophageal Reflux Disease - r/t ibuprofen usage Denies: Hx Ulcer History: Denies: Hx Renal Disease Sensory History: Reports: Hx Contacts or Glasses Denies: Hx Cataracts, Hx Hearing Aid Opthamlomology History: Reports: Hx Contacts or Glasses Denies: Hx Cataracts Neurological History: Reports: Hx Headaches - pontine lesion 2007 Psychiatric History: Denies: Hx Panic Disorder - Cancer History Hx Chemotherapy: No - Surgical History Surgery Procedure, Year, and Place: APPENDECTOMY Hx Anesthesia Reactions: No Infectious Disease History: No Infectious Disease History: Denies: Hx Clostridium Difficile, Hx Hepatitis, Hx Human Immunodeficiency Virus (HIV), Hx of Known/Suspected MRSA, Hx Shingles, Hx Tuberculosis, Hx Known/ Suspected VRE, Hx Known/Suspected VRSA, History Other Infectious Disease, Traveled Outside the [place] in Last 30 Days - Family History Known Family History: Positive: Other - brother: colon CA - Social History Alcohol Use: None Hx Substance Use: No Substance Use Type: Reports: None Hx Tobacco Use: No Smoking Status (MU): Former Smoker Type: Cigarettes Amount Used/How Often: smoked for 53 years 1-1.5 ppd Review of Systems Constitutional: Negative Eyes: Negative Positive: Epistaxis Cardiovascular: Negative Respiratory: Negative Gastrointestinal: Negative Genitourinary: Negative Musculoskeletal: Negative Skin: Negative Neurological: Negative Psychological: Normal All Other Systems Reviewed And Are Negative: Yes Physical Exam - Summary Physical Exam Summary: Bleeding controlled. Sinuses appear clear with visual exam. Triage Information Reviewed: Yes Vital Signs On Initial Exam: Initial Vitals Temp Pulse Resp BP Pulse Ox 98.4 F 88 20 154/68 97 05/08/18 22:00 05/08/18 22:00 05/08/18 22:00 05/08/18 22:00 05/08/18 22:00 Vital Signs Reviewed: Yes Appearance: Positive: Well-Appearing Skin: Positive: Warm Head/Face: Positive: Normal Head/Face Inspection Eyes: Positive: Normal ENT: Positive: Normal ENT inspection Neck: Positive: Supple Respiratory/Lung Sounds: Positive: Clear to Auscultation Cardiovascular: Positive: Normal Abdomen Description: Positive: Nontender Musculoskeletal: Positive: Normal Neurological: Positive: Normal Psychiatric: Positive: Normal AVPU Assessment: Alert - Nichol Coma Scale Best Eye Response: 4 - Spontaneous Best Motor Response: 6 - Obeys Commands Best Verbal Response: 5 - Oriented Coma Scale Total: 15 Diagnostics - Vital Signs Vital Signs Temp Pulse Resp BP Pulse Ox 05/08/18 22:00 98.4 F 88 20 154/68 97 - Laboratory Lab Statement: Any lab studies that have been ordered have been reviewed, and results considered in the medical decision making process. EENT Course/Dx - Course Course Of Treatment: Patient complains of sneezing tonight with subsequent nosebleed. Bleeding controlled prior to arrival in ED. Discussed patient with Dr. Martinez ENT states patient has recent diagnosis of sphenoid sinus tumor. Dr. Martinez states that if patient bleeding was controlled he could go home, and follow up with appointment on Thursday with Dr Orona. If bleeding was uncontrolled patient would be admitted to the OR. Bleeding has been controlled during stay in the ED. Patient will be discharged home. Patient also states headache with history of same. States it is his usual migraine. States Fioricet controlled headache symptoms. Follow up with ENT Dr. Ramey - Diagnoses Provider Diagnoses: Epistaxis, Headache Discharge - Sign-Out/Discharge Documenting (check all that apply): Patient Departure - Discharge Plan Condition: Stable Disposition: HOME Patient Education Materials: Nosebleed (ED) Referrals: Kevin Green MD [Primary Care Provider] - Additional Instructions: Follow-up with ear nose and throat. Return to the ED for any new or worsening symptoms - Billing Disposition and Condition Condition: STABLE Disposition: Home
[2018-05-08 23:43] VITALS: BP 148/80
== END 2018-05-08 23:43 | disposition home or self-care (01) ==
LOC: ED 21:14
DX: R04.0 Epistaxis (principal); R51 Headache; Z87.891 Personal history of nicotine dependence
CPT/HCPCS: 99283; A9270-GY

== ENCOUNTER 2018-05-19 12:07 | Day surgery (SDC) | payer MEDICARE ==
[~2018-05-19 12:07] MED LIST changes: -Acetaminophen TAB* 325 MG PO PRN; -Buffered Lidocaine 0.9% SYRIN* 5 ML/SYR SYRINGE ONE; +Dexamethasone IV* 4 MG/ML 1 ML (4 MG) IV SLOW PU ONE; +Famotidine IV* 10 MG/ML 2 ML (20 mg) IV ONE; -HYDROcodone/ACETAMIN 5-325 MG* 1 TAB PO PRN; -Ibuprofen TAB* 600 MG PO PRN; -Lidocaine 2% PF * 5 ML VIAL ONE; -Midazolam* 1 MG/ML 2 ML VIAL (2 MG) ONE; -PROCHLORPERAZINE INJ 5 MG/ML 2 ML VIAL IV PRN; -Propofol* 10 MG/ML 20 ML BTL IV PUSH ONE; -fentaNYL* 50 MCG/ML 2 ML VIAL (100 MCG VIAL) IV PRN
[2018-05-19] MEDS ORDERED: Famotidine IV* 10 MG/ML 2 ML (20 mg) ONE (13:10)
[2018-05-19] MEDS ORDERED: Dexamethasone IV* 4 MG/ML 1 ML (4 MG) ONE ×2 (13:10→16:33)
[2018-05-19] MEDS ORDERED: HYDROmorphone INJ* 0.5 MG/0.5 ML SYRINGE ONE (13:10)
[2018-05-19] MEDS ORDERED: Lidocaine 2% EPI 1:200000 MPF*10-20 ML VIAL ONE (15:12)
[2018-05-19] MEDS ORDERED: Oxymetazoline 0.05% NASAL SPR* 15 ML BTL ONE (15:12)
[2018-05-19] MEDS ORDERED: Lidocaine 4% TOPICAL* 50 ML TOP.SOLN ONE (15:12)
[2018-05-19] MEDS ORDERED: Ondansetron INJ* 2 MG/ML VIAL ONE (15:13)
[2018-05-19] MEDS ORDERED: Succinylcholine* 20 MG/ML 10 ML VIAL ONE (15:27)
[2018-05-19] MEDS ORDERED: fentaNYL* 50 MCG/ML 2 ML VIAL (100 MCG VIAL) ONE ×2 (15:27→16:05)
[2018-05-19] MEDS ORDERED: Metoclopramide IV* 5 MG/ML 2 ML VIAL ONE (16:33)
[2018-05-19] MEDS ORDERED: Gelfoam 12-7 ADSORBABL SPONGE* 1 EA SPONGE ONE ×2 (16:34→16:53)
[2018-05-19] MEDS ORDERED: Gelatin ADSORBABLE (OPHTH)* OPHTH.FILM ONE ×3 (16:35→16:54)
[2018-05-19] MEDS ORDERED: Propofol* 10 MG/ML 20 ML BTL IV PUSH ONE (16:36)
[2018-05-19] MEDS ORDERED: Acetaminophen TAB* 325 MG PO PRN (16:37)
[2018-05-19] MEDS ORDERED: fentaNYL* 50 MCG/ML 2 ML VIAL (100 MCG VIAL) IV PRN (16:37)
[2018-05-19] MEDS ORDERED: oxyCODONE/Acetamin 5/325 MG* TAB PO PRN (16:37)
[2018-05-19] MEDS ORDERED: HYDROmorphone INJ* 0.5 MG/0.5 ML SYRINGE IV PRN (16:37)
[2018-05-19] MEDS ORDERED: Naloxone* 0.4 MG/ML 1 ML VIAL IV PRN (16:37)
[2018-05-19] MEDS ORDERED: Ondansetron INJ* 2 MG/ML VIAL IV PRN (16:37)
[2018-05-19] MEDS ORDERED: DiMENhydriNATE IV* 50 MG/ML VIAL IV PUSH PRN (16:37)
[2018-05-19] MEDS ORDERED: Triamcinolone Acetonide* 40 MG/ML 1 ML VIAL ONE (16:39)
[2018-05-19 18:14] VITALS: BP 167/91
--- NOTE | 2018-05-20 06:23 | OP ---
DATE OF OPERATION: 05/19/18 - [facility] DATE OF : 46 SURGEON: John Ramey MD PRE-OP DIAGNOSIS: Chronic sinusitis, nasal mass. POST-OP DIAGNOSIS: Chronic sinusitis, nasal mass. OPERATIVE PROCEDURE: Bilateral video endoscopic anterior and posterior ethmoidectomy and bilateral sphenoid sinusotomy with removal of tissue for frozen section. BRIEF HISTORY: This is a 68-year-old gentleman presenting with rapidly expansile nasal mass involving the ethmoids and sphenoid sinuses. The patient was having progressive symptoms of facial pressure and pain. CT scan showed an extensive nasal involvement of soft tissue with some localized bony destruction highly suspicious for neoplasm. DESCRIPTION OF PROCEDURE: The patient was taken to the operating room. General anesthetic was given. The patient was intubated. Image guidance was utilized and the [employer] system was utilized. Previously obtained images were inserted in the system. Next, once the patient was intubated, the fiducial markings were carried out and adequate orientation was noted. The CT was also available for visualization. A 0-degree telescope, 30-degree telescope , and other endoscopic sinus surgery instruments were utilized. We initially decongested the nose with Afrin-placed pledgets. Subsequently, 2% lidocaine with epinephrine was infiltrated in the ethmoid region and in the region of the middle turbinate, the lateral nasal wall on both sides. Using a micro-shaver, anterior bulla was resected on the left side carefully. Blunt and sharp dissection was carried out through the bulla and through to the anterior ethmoidal coursing out laterally. Extensive polypoidal mucosa was noted. This was resected and some of it was sent for frozen section. Coursing through the nasal posterior ethmoidal bulla cells and superiorly into the nasofrontal duct area always using visualization and confirmation with image guidance orientation, the front face of the sphenoid was opened up. Once this was opened up and cleaned out carefully removing as much of the hyperplastic mucosa as possible. At this stage, the pathologist had not given us information, so we turned our attention to the right side. Here too, again the ethmoidal resection was carried out using the micro-shaver, coursing through the ground lamella posteriorly into the ethmoidal cells. Using again the visualization and image guidance removing the frontal face of the sphenoid, removing the hyperplastic mucosa which was quite thickened. The area was then packed with Gelfilm and Gelfoam on both sides which was soaked with Kenalog. In the meantime, the pathologist did report that this was highly likely to be a neoplastic process, possibly a high-grade lymphoma pending results of additional specimen testing. The patient was extubated and sent to Recovery in stable condition. Instrument and sponge counts were correct. Blood loss was minimal. [id number]/[facility] #: [id number] [facility]
== END 2018-05-19 18:34 | disposition home or self-care (01) ==
LOC: OR 12:07
PROVIDERS: ATTEND Otolaryngology
DX: C83.31 Diffuse large B-cell lymphoma, lymph nodes of head, face, and neck (principal); J44.9 Chronic obstructive pulmonary disease, unspecified; Z87.891 Personal history of nicotine dependence; I10 Essential (primary) hypertension; R53.83 Other fatigue; E87.1 Hypo-osmolality and hyponatremia; E78.2 Mixed hyperlipidemia; R09.02 Hypoxemia; K21.9 Gastro-esophageal reflux disease without esophagitis
CPT/HCPCS: 88184; 88187; 88188; 88189; 88271; 88291; 88305; 88331; 88341; 88342; 88360; 88365; A9270-GY; J0330; J1100; J1170; J2405; J2704; J2765; J3010; J3301

== ENCOUNTER 2018-05-22 19:11 | Inpatient (IN) | payer MEDICARE ==
[2018-05-22] MEDS ORDERED: Morphine INJ* 2 MG/ML 1 ML SYRINGE (TWO MG - NEW SYRINGE VERSION) IV ONE ×2 (19:44→21:42)
--- NOTE | 2018-05-22 19:44 | ED ---
Complex/Multi-Sys Presentation - HPI Summary HPI Summary: This is new Arvizu documenting for attending Dr. Luda Babin MD. Pt is a 68 y/o M who presents to ED c/o nausea and vomiting. He had a nasal procedure done on Thursday here at [facility], and hasnt been able to eat or drink due both to loss of appetite as well as vomiting. Rates his pain intensity as 4/ 10 in severity and describes it as a dull throbbing per nurse's report. Notes hemoptysis, abdominal pain, and intermittent fever and chills. Nothing alleviates or exacerbates his condition per nurse's report. PSHx of appendectomy and denies cholecystectomy. PMHx of COPD and uses oxygen tanks at home since before the procedure. Not on any antibiotics. Quit smoking last year. 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 Onset/Duration: Lasting Days, Still Present Severity Currently: Moderate - 4/10 Location: Pain At: - Abdomen Character: Dull, Throbbing Associated Signs And Symptoms: Positive: Hemoptysis, Nausea, Vomiting, Fever, Other - Chills - Allergies/Home Medications Allergies/Adverse Reactions: Allergies Allergy/AdvReac Type Severity Reaction Status Date / Time meperidine [From Demerol] Allergy Intermediate Hallucinati Verified 05/22/18 19: 20 ons warfarin Allergy Intermediate Unknown Verified 05/22/18 19:20 Reaction Details azithromycin Allergy GI Upset Verified 05/22/18 19:20 budesonide [From Symbicort] Allergy Unknown Verified 05/22/18 19:20 Reaction Details cefuroxime [From Ceftin] Allergy Difficulty Verified 05/22/18 19:20 Breathing formoterol [From Symbicort] Allergy Unknown Verified 05/22/18 19:20 Reaction Details levofloxacin Allergy Abdominal Verified 05/22/18 19:20 Pain amoxicillin [From Augmentin] AdvReac GI Upset Verified 05/22/18 19:20 clavulanic acid AdvReac GI Upset Verified 05/22/18 19:20 [From Augmentin] PMH/Surg Hx/FS Hx/Imm Hx Endocrine/Hematology History: Denies: Hx Anticoagulant Therapy, Hx Diabetes, Hx Thyroid Disease Cardiovascular History: Reports: Hx Hypertension - ON MEDS Denies: Hx Pacemaker/ICD Respiratory History: Reports: Hx Chronic Obstructive Pulmonary Disease (COPD), Other Respiratory Problems/Disorders - 3 L N/C OXYGEN 11/05 Denies: Hx Asthma GI History: Reports: Hx Gastroesophageal Reflux Disease - r/t ibuprofen usage Denies: Hx Ulcer History: Denies: Hx Renal Disease Sensory History: Reports: Hx Contacts or Glasses - GLASSES Denies: Hx Cataracts, Hx Hearing Aid Opthamlomology History: Reports: Hx Contacts or Glasses - GLASSES Denies: Hx Cataracts Neurological History: Reports: Hx Headaches - pontine lesion 2006, HEADACHES EVER SINCE, Hx Migraine - CONSTANT Psychiatric History: Denies: Hx Panic Disorder - Cancer History Hx Chemotherapy: No - Surgical History Surgery Procedure, Year, and Place: 1984 APPENDECTOMY [facility]. 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 (ACCIDENT) [facility] Anesthesia Reactions: No Infectious Disease History: No Infectious Disease History: Denies: Hx Clostridium Difficile, Hx Hepatitis, Hx Human Immunodeficiency Virus (HIV), Hx of Known/Suspected MRSA, Hx Shingles, Hx Tuberculosis, Hx Known/ Suspected VRE, Hx Known/Suspected VRSA, History Other Infectious Disease, Traveled Outside the [place] in Last 30 Days - Family History Known Family History: Positive: Other - brother: colon CA - Social History Alcohol Use: None Hx Substance Use: No Substance Use Type: Reports: None Hx Tobacco Use: No Smoking Status (MU): Former Smoker Type: Cigarettes Amount Used/How Often: smoked for 53 years 1-1.5 ppd Length of Time of Smoking/Using Tobacco: 53 YRS Have You Smoked in the Last Year: Yes Review of Systems Positive: Fever, Chills Positive: Other - Hemoptysis Positive: Abdominal Pain, Vomiting, Nausea, Other - Loss of appetite All Other Systems Reviewed And Are Negative: Yes Physical Exam - Summary Physical Exam Summary: VITAL SIGNS: Reviewed. GENERAL: Patient is a well-developed and nourished male who is lying comfortable in the stretcher. Patient is not in any acute respiratory distress. HEAD AND FACE: No signs of trauma. No ecchymosis, hematomas or skull depressions. No sinus tenderness. Old minimal blood in both nostrils, no active bleeding. EYES: PERRLA, EOMI x 2, No injected conjunctiva, no nystagmus. EARS: Hearing grossly intact. Ear canals and tympanic membranes are within normal limits. MOUTH: Oropharynx within normal limits. NECK: Supple, trachea is midline, no adenopathy, no JVD, no carotid bruit, no c- spine tenderness, neck with full ROM. CHEST: Symmetric, no tenderness at palpation LUNGS: Decreased bilateral lung volume. Clear to auscultation bilaterally. No wheezing or crackles. CVS: Regular rate and rhythm, S1 and S2 present, no murmurs or gallops appreciated. ABDOMEN: Diffuse abdominal tenderness mainly in RUQ. Soft. No signs of distention. No rebound no guarding, and no masses palpated. Bowel sounds are normal. EXTREMITIES: FROM in all major joints, no edema, no cyanosis or clubbing. NEURO: Alert and oriented x 3. No acute neurological deficits. Speech is normal and follows commands. SKIN: Dry and warm Triage Information Reviewed: Yes Vital Signs On Initial Exam: Initial Vitals Temp Pulse Resp BP Pulse Ox 96.5 F 90 20 178/83 95 05/22/18 19:15 05/22/18 19:15 05/22/18 19:15 05/22/18 19:15 05/22/18 19:15 Vital Signs Reviewed: Yes Diagnostics - Vital Signs Vital Signs Temp Pulse Resp BP Pulse Ox 05/22/18 19:15 96.5 F 90 20 178/83 95 - Laboratory Result Diagrams: 05/23/18 02:08 05/22/18 19:56 Lab Statement: Any lab studies that have been ordered have been reviewed, and results considered in the medical decision making process. - Radiology CXR Radiology Interpretation Completed By: ED Physician - No acute processes, pending official report. - CT CT Abd/Pel CT Interpretation Completed By: Radiologist - IMPRESSION: Gallbladder distention , similar in appearance to the comparison study. No other acute intra-abdominal findings. ED Physician reviewed this report. CT Sinus CT Interpretation Completed By: Radiologist - Impression: Extensive sinus disease without appreciable change from the comparison study. ED Physician reviewed this report. - Ultrasound No standard instances Ultrasound Interpretation Completed By: Radiologist - Gallbladder US. Gallbladder: Mild dilatation of the gallbladder with echogenic sludge. Gallbladder wall thickness of 2.4 mm. No gallstones. IMPRESSION: Biliary sludge. No angel cholelithiasis. No other sonographic finding of cholecystitis. ED Physician reviewed this report. Re-Evaluation - Re-Evaluation First Eval Re-Evaluation Time: 21:55 - Discussed results to CT and US. Pt is still c/o pain. Second Eval Re-Evaluation Time: 01:05 - Pt has PO intake of cracker, but still nauseous Complex Multi-Symp Course/Dx Course Of Treatment: Pt is a 68 y/o M who presents to ED c/o nausea and vomiting. He had a nasal procedure done on Thursday here at [facility], and hasnt been able to eat or drink due both to loss of appetite as well as vomiting. Notes spitting up blood, abdominal pain, and intermittent fever and chills. PMHx of COPD, and he quit smoking last year. PSHx of appendectomy but denies cholecystectomy. Physical exam revealed diffuse abdominal tenderness mainly in RUQ, old minimal blood in both nostrils with no active bleeding, and decreased bilateral lung volumes. CT Abd/Pel showed gallbladder distention, similar in appearance to the comparison study and no other acute intra-abdominal findings. ED Physician reviewed this radiology report and agrees. Gallblader US showed mild dilatation of the gallbladder with echogenic sludge, gallbladder wall thickness of 2.4 mm, no gallstones, biliary sludge, no angel cholelithiasis, and no other sonographic finding of cholecystitis. ED Physician reviewed this radiology report and agrees. CT Sinus showed extensive sinus disease without appreciable change from the comparison study. ED Physician reviewed this report and agrees. CXR showed no acute processes, pending official report. In the ED course pt was given Morphine, Zofran, and fluids. At 01:05 pt PO intake of some crackers, but still nauseous. Pt is diagnosed with nausea and vomiting and admitted to [facility]. Pt is agreeable with this plan. - Diagnoses Provider Diagnoses: Nausea & vomiting - Physician Notifications Discussed Care Of Patient With: Clarence Wheatley Time Discussed With Above Provider: 02:00 Instructed by Provider To: Admit As Inpatient Discharge - Sign-Out/Discharge Documenting (check all that apply): Patient Departure - Admit - Discharge Plan Condition: Fair Disposition: ADMITTED TO [facility] Referrals: Kevin Green MD [Primary Care Provider] -
[2018-05-22] MEDS ORDERED: Ondansetron INJ* 2 MG/ML VIAL IV ONE (19:47)
[2018-05-22] MEDS ORDERED: NS 0.9% 1000 ML* 1,000 ML IV ONE ×2 (19:48→23:53)
[2018-05-22 20:16] LABS: ABS Basophils 0.1 10^3/ul (0-0.2); ABS Eosinophils 0.1 10^3/ul (0-0.6); ABS Lymphocytes 1.1 10^3/ul (1.0-4.8); ABS Monocytes 1.4 10^3/ul (0-0.8); ABS Neutrophils 17.4 10^3/ul (1.5-7.7); ABS Nucleated RBC 0 10^3/ul; Eosinophil % 0.5 % (0-6); Hematocrit 41 % (42-52); Hemoglobin 13.8 g/dl (14.0-18.0); Lymphocyte % 5.6 % (25-47); Mean Corpuscular HGB Conc 33 g/dl (31-36); Mean Corpuscular Hemoglobin 31 pg (27-31); Mean Corpuscular Volume 92 fL (80-94); Mean Platelet Volume 6.4 um3 (7.4-10.4); Nucleated Red Blood Cells % 0; Platelet Count 485 10^3/ul (150-450); Red Blood Count 4.51 10^6/ul (4.00-5.40); Red Cell Distribution Width 15 % (10.5-15); White Blood Count 20.1 10^3/ul (3.5-10.8)
--- OUTSIDE RECORDS SUMMARY | 2018-05-22 20:18 | XMS REPORT ---
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 [address] [place] [address] Problems Date Description Provider Status Onset: 02/05/2018 [...] Hx Tablets 875-125mg 30tabs 1 by mouth Alexis Lopez lavulanate 018 - twice a day Ruparelia, Potassium with food MD Resendiz Prednisone Hx Tablets 20mg 10tabs 20mg by Alexis Lopez 018 - mouth one Tanvir, per day in MD Resendiz in the morning Ibuprofen Hx Tablets 600mg 90tabs Take 1 Norma, 018 - Tablet By Kevin CHUN Mouth Twice 018 A Day as Needed Vital Signs Date Vital Result Comment 05/10/2018 Weight 144.00 lb Weight in kg's 65.318 Height 65 inches 5'5" Height in cm's 165.1 cm BMI (Body Mass Index) 24.0 kg/m2 04/30/2018 Weight 144.00 lb Weight in kg's 65.318 Height 65 inches 5'5" Height in cm's 165.1 cm BMI (Body Mass Index) 24.0 kg/m2 02/05/2018 Weight 166.00 lb Weight in kg's 75.298 Height 65 inches 5'5" Height in cm's 165.1 cm BMI (Body Mass Index) 27.6 kg/m2 Results Description No Information Procedures Date CPT Code Description Status 04/30/2018 61830 Nasal Endoscopy, Diagnostic Completed Encounters Type Date Location Provider CPT E/M Dx Office Visit 04/30/2018 11:45a Natalie,After 10/19/07 [place] [address] D48.1 J32.3 Office Visit 02/05/2018 10:00a Natalie,After 10/19/07 [place] [address] J32.3 R51 Plan of Care 05/10/2018 - John Ramey MDD48.1 Neoplasm of uncertain behavior of connctv/ soft tissComments:Options of treatment including endoscopic sinus surgery was discussed. Medical alternatives were also discussed Risks and complications of sinus surgery including risks to the orbit, orbital structurespossibility of blindness was discussed, risk of injury to the skull base with the possibility of CSFleak was also discussed. Other complications include recurrence of disease , scar formation with difficulty breathing through the nose and nasal difficulty with bleeding were also outlined. he is to bescheduled for ~B_ endoscopic nasal biopsy with image guidance possible bilateral sphenoid with removal of tissue with balloon. Frozen section biopsies~b_ (to confirm adequate specimen)J32.3 Chronic sphenoidal [id number] Headache
--- OUTSIDE RECORDS SUMMARY | 2018-05-22 20:18 | XMS REPORT ---
:1950 External Reference #:[id number] Author Organization [facility] [employer] Address [address] [place] [address] [place] [address] Phone [phone] Care Team Providers Name Role Phone Sabrina Pavon MD Primary Care Physician Unavailable Payers Type Date Identification Numbers Payment Provider Subscriber Commercial Effective: Policy Number: [id number] Aries Martel/Howard Alexandru Chopra 2016 Options PayID: [id number] [address] [address] Attn: [place] [address] [employer] [place] Part B Expires: 2016 Policy Number: [id number] Medicare Alexandru Chopra PayID: [id number] [address] [place] [address] Problems Date Description Provider Status Onset: 05/09/2013 Chronic obstructive lung disease Wallace Cabarles M.D. Active Onset: 05/09/2013 Mixed hyperlipidemia Wallace [...] by mouth Johnson /2018 s every 12 SEAN Yoo hours as needed headache Wheelchair 07/22 Active Misc 1unit lightweight J44.9 Kevin E. /2017 s papa Warren M.D. dx: COPD, chronic dyspnea with exertion Shower Chair 12/26 Active use with J44.9 Kevin E. bathing for Norma dyspnea sx M.D. Nebulizer 07/20 Active Kit 1unit use as Ekvin E. Kit/Tubing/Mout /2014 s directed dx: Norma [...] Johnson HCL /2017 s every 8 Fredo ANIME DESIGNER - hours as 04/22 needed. Ondansetron 04/20 Hx Tablets 4mg 30tab dissolve one Johnson /2017 Dispers s tablet Fredo ANIME DESIGNER - orally every 04/22 8 hours needed for nausea. Doxycycline 04/16 Hx Capsules 100mg 60cap 1 by mouth J32.2 Chuck Monohydrate /2017 s twice a day D. - with food Macqueen, 05/03 M.D. /2017 Levofloxacin 04/15 Hx Tablets 500mg 10tab one by mouth J01.90 Johnson /2018 s daily for 10 Fredo, ANIME DESIGNER - days 04/15 Moxifloxacin 04/15 Hx Tablets 400mg 10tab 1 tablet Johnson HCL s once daily x Fredo, ANIME DESIGNER - 10 days - pt 04/16 never started Doxycycline 04/12 Hx Capsules 100mg 14cap one tablet J01.90 Johnson Hyclate s twice daily Fredo, ANIME DESIGNER - for 7 days. 04/15 Doxycycline 03/30 Hx Capsules 100mg 20cap one tablet J01.90 Johnson Hyclate /2017 s twice daily Fredo, ANIME DESIGNER - for 10 days. 04/09 Levofloxacin 03/26 Hx Tablets 500mg 10tab one by mouth J01.90 Johnson s daily for 10 Fredo, ANIME DESIGNER - days 03/30 Fluticasone 03/23 Hx Suspension 50mcg/Act 48gm 1 spray each Johnson Propionate nostril Fredo, ANIME DESIGNER - daily as 05/05 needed Levalbuterol 02/25 Hx Nebulizer 0.63mg/3M 225ml use 3-4x Sapna HCL /2017 L daily as Brian, - needed for MD 03/11 shortness of breath Albuterol 02/24 Hx Nebulizer 0.63mg/3M 675ml 1 unit, Sapna Sulfate L nebl, every Brian, - 6 hours, as 02/25 needed Levalbuterol 02/22 Hx Aerosol 45mcg/Act 15gm 2 puffs J44.9 Johnson Tartrate every 4-6 Fredo, ANIME DESIGNER - hours as 03/11 needed for SOB [...] Solution 0.5-2.5(3 90uni Inhale 1 Kevin E. Charlotte/Albuter )mg/3ML ts Vial Via Norma, ol Sulfate - Nebulizer M.D. 02/18 Twice Daily as Needed For Shortness Of Breath Ipratropium 05/30 Hx Solution 0.5-2.5(3 540un Inhale 1 Kevin E. Charlotte/Albuter )mg/3ML its Vial Via Norma, ol Sulfate [...] Eloisa Green.DAbdifatah 11/20 Neomycin/Polymy 05/17 Hx Suspension 3.5-72722 1vial Finished 381.00 Anna kenan/Hydrocortis /2014 -1 [...] daily 496 Kevin Curran /2013 /Inh s Norma, - M.D. 02/13 [...] (20MG) Ipratropium Hx Solution 0.02% Inhale Unknown Charlotte /0000 Contents Of - 1 Vial Via [...] CPT Code Status Date Vaccine Lot # [id number] Given 08/20/2017 Influenza Virus Vaccine, Quadrivalent, Split, Preservative Free [id number] Given 07/29/2016 Influenza Virus Vaccine, Quadrivalent, Split [id number] Virus, Im Use 19488 Given 07/17/2015 Influenza Virus Vaccine, Quadrivalent, Split, [id number] Preservative Free 77919 Given 09/12/2014 Pneumococcal Conjugate Vaccine 13 Valent For [id number] Intramuscular Use 93483 Given 08/23/2014 Flu Vaccine Split Virus Preservative Free For Indiv 3Yr Older [id number] Given 08/29/2013 Flu Vaccine NOS 49833 Given 09/10/2011 Pneumonia Vaccine 46435 Given 06/04/2011 Tdap - Tetanus/Diptheria/Acellular Pertussis Vital [...] Test Date Test Result H/L Range Note Laboratory test finding 04/26/2018 Magnesium 2.0 mg/dL 1.9-2.7 Amylase 19 U/L Low 29-103 Lipase 11 U/L 11.0-82.0 Creatine Kinase(CK) 28 U/L 10-223 C Reactive Protein 40.59 mg/L High <8.01 Troponin-I (TnI) 0.04 ng/mL High <0.04 1 Blood Culture SEE RESULT BELOW 2 Inr/Protime 04/26/2018 Inr 1.05 High 0.77-1.02 Laboratory test finding 04/26/2018 Lactic Acid 1.1 mmol/L 0.5-2.0 3 CBC Auto Diff 04/26/2018 White Blood Count [...] Egfr Non- 119.3 >60 Egfr 144.4 >60 4 CBC Auto Diff 04/22/2018 White Blood [...] Color Straw Urine Appearance Clear Urine Specific Valencia 1.004 Low 1.010-1.030 Urine pH 7.0 5-9 [...] 15 Molecular Influenza B Molecular NEGATIVE Negative Laboratory test finding 02/08/2018 Blood Culture SEE RESULT BELOW 16 Arterial Blood Gas 02/08/2018 Fio2 3 PH Arterial 7.34 Low 7.35-7.45 Pco2 Arterial 82 mmHg High 35-45 17 Po2 Arterial 133 mmHg High 80-100 O2 Saturation Arterial 99.2 % High 95-98 Base Excess Arterial 13.8 High -2.0-2.0 18 Hco3 Arterial 35.6 mmol/L High 19-31 Laboratory test 02/08/2018 Rapid Influenza A B SEE RESULT BELOW 19 finding Antigen CBC Auto Diff 02/08/2018 White [...] finding 02/08/2018 Lactic Acid 0.9 mmol/L 0.5-2.0 20 Inr/Protime 02/08/2018 Inr 0.94 0.77-1.02 Laboratory test [...] 22-32 25 Anion Gap 4 mmol/L 2-11 CKMB 02/08/2018 CKMB ng/mL 14.0 ng/mL High 0.6-6.3 26 Laboratory test finding 02/08/2018 Creatine Kinase(CK) 154 U/L 10-223 C Reactive Protein 4.67 mg/L < 5.00 27 Laboratory test finding 12/07/2017 Occult Blood [...] HGB) 6.0 % Less than 6.0 40 Lipid Profile (Trig/Chol/HDL) 01/23/2016 Triglycerides 98 mg/dL 41 Cholesterol 212 mg/dL 42 HDL Cholesterol 38.0 mg/dL 43 LDL Cholesterol 154 mg/dL 44 Comp Metabolic Panel 01/23/2016 Sodium 133 mmol/L [...] Egfr Non- 100.8 >60 Egfr 129.6 >60 45 CBC With Manual Diff 06/20/2014 White Blood Count 10.7 10^3/uL 4.8-10.8 Red Blood Count 5.54 10^6/uL High 4.0-5.4 Hemoglobin 18.0 g/dL 14.0-18.0 Hematocrit 52 % 42-52 Mean Corpuscular Volume 94 fL 80-94 Mean Corpuscular Hemoglobin 33 pg High 27-31 Mean Corpuscular HGB Conc 35 g/dL 31-36 Red Cell Distribution Width 14 % 10.5-15 Platelet Count 233 10^3/uL 150-450 46 Mean Platelet Volume 7 um3 7.4-10.4 47 Abs Neutrophils 7.8 10^3/uL High 1.5-7.7 Abs [...] Lipid Profile (Trig/Chol/HDL) 06/20/2014 Triglycerides 124 mg/dL 48 Cholesterol 202 mg/dL 49 HDL Cholesterol 36.6 mg/dL 50 LDL Cholesterol 141 mg/dL 51 Laboratory test finding 06/20/2014 PSA Screening 0.526 ng/mL 0-4.000 52 Hepatitis C Antibody Nonreactive Nonreactive Surgical Pathology [...] 152.0 High Less Than 100 57 1 Result TnIDx:0.04 Called to [id number] at: 16:06:37 by:[id number] Read back by: [id number] 2 SEE RESULT BELOW Name: ALEXANDRU CHOPRA : [address]: Estuardo Covarrubias MD Acct: [id number] Unit: [id number] AGE: 68 Location: [place] [address]- Re04/26/18 Dis: 04/28/18 SEX: M Status: DIS Rut SPEC: [id number] DARBY: 04/26/[address]: Dede CBARAL REQ: [id number] RECD: 04/26/18 STATUS: MANDEEP RODRIGUEZ DR: Johnson Chavarria MD _ SOURCE: BLOOD,VENO SPDESC: ORDERED: Blood Cult COMMENTS: Reason for Exam: fever, abd pain Procedure Result Reported Site Aerobic Culture Bottle Final 05/01/18- 1522 ML No Growth Day 5 Anaerobic Culture Bottle Final 05/01/18- 1522 ML No Growth Day 5 * ML - Main Lab . END OF REPORT DEPARTMENT OF PATHOLOGY, [address] [place] [address] Joselo Jamil M.D. Director [facility] # [id number] 3 [facility] Severe Sepsis and Septic Shock Management Bundle Measure requires all lactic acids initially measuring >2.0 mmol/L be repeated. 4 Because ethnic data is not always readily [...] 15-29 5 Kidney failure <15 (or dialysis) 5 Because ethnic data is not always [...] in selective patients <6.0%. Please refer to [place] [employer] diabetic care guidelines for further information. 7 SEE RESULT BELOW Name: CHOPRAALEXANDRU : [address]: Mindy Kunz MD Acct: [id number] Unit: [id number] AGE: 67 Location: [place] [address] Re02/11/18 SEX: M Status: ADM IN SPEC: [id number] DARBY: 02/11/[address]: Sang Gutierrez MD REQ: [id number] RECD: 02/11/18 STATUS: MANDEEP RODRIGUEZ DR: Kevin Green III, MD _ SOURCE: URINE SPDESC: ORDERED: Urine Culture Procedure Result Reported Site Urine Culture Final 02/12/18- 922 ML No Growth (<1,000 CFU/mL) * ML - Main Lab . END OF REPORT DEPARTMENT OF PATHOLOGY, [address] [place] [address] Joselo Jamil M.D. Director [facility] # [id number] 8 Verbal to [id number] by [id number] at 2243 on 02/10/18. Results read back accurately. 9 Reference ranges based on room air. 10 [facility] Severe Sepsis and Septic Shock Management [...] pg/mL: likely moderate to severe CHF 15 Continuing Education Instructor: [id number] 16 SEE RESULT BELOW Name: ALEXANDRU CHOPRA Juju : [address]: Kelly Kaur MD Acct: [id number] Unit: [id number] AGE: 67 Location: ED Re02/08/18 SEX: M Status: DEP ER SPEC: [id number] DARBY: 02/08/18-[address]: Kelly Kaur MD REQ: [id number] RECD: 02/08/18 STATUS: COMP OTHR DR: Kevin Green III, MD _ SOURCE: BLOOD,VENO SPDESC: ORDERED: Blood Cult COMMENTS: Patient is On Antibiotics? YES Procedure Result Reported Site Aerobic Culture Bottle Final 02/13/181158 ML No Growth Day 5 Anaerobic Culture Bottle Final 02/13/181158 ML No Growth Day 5 * ML - Main Lab . END OF REPORT DEPARTMENT OF PATHOLOGY, [address] [place] [address] Joselo Jamil M.D. Director [facility] # [id number] 17 Verbal to [id number] by [id number] at 1231 on 02/08/18. Results read back accurately. 18 Reference ranges based on room air. 19 SEE RESULT BELOW Name: ALEXANDRU CHOPRA : [address]: Kelly Kaur MD Acct: [id number] Unit: [id number] AGE: 67 Location: ED Re02/08/18 SEX: M Status: REG ER SPEC: [id number] DARBY: 02/08/18-[address] [facility] [address]: Kelly Kaur MD REQ: [id number] RECD: 02/08/18 STATUS: MANDEEP RODRIGUEZ DR: Kevin Green III, MD _ SOURCE: [facility]: ORDERED: Flu A B Request Procedure Result Reported Site Rapid Influenza A B Request Final 02/08/18- 1211 ML Specimen received for Influenza A/B Molecular testing * ML - Main Lab . END OF REPORT DEPARTMENT OF PATHOLOGY, [address] [place] [address] Joselo Jamil M.D. Director [facility] # [id number] 20 [facility] Severe Sepsis and Septic Shock Management [...] severe CHF 23 Interpretive information available on [facility] Lab Test Catalog at [email or web address] 24 Because ethnic data is not always [...] failure <15 (or dialysis) 25 Verbal to [id number] by [id number] at 1204 on 02/08/18. Results read back accurately. 26 Critical Result CO2:42 Called to [id number] at: 12:04:32 by:[id number] Read back by:[id number] 27 Acute inflammation: >10.00 28 Verbal to [id number] by [id number] at 1343 on 09/01/17. Results read back accurately. 29 Reference ranges based on room air. 30 [facility] Severe Sepsis and Septic Shock Management [...] dialysis) 32 Critical Result CO2:42 Called to [id number] at: 12:23:54 by:[id number] Read back by:[id number] 33 >100 to <200 pg/mL: likely compensated [...] Serum levels of PSA measured using the [employer] DXI Hybritech immunoassay should not be interpreted [...] and in selective patients <6.0%.Please refer to [place] [employer] Diabetic care guidelines for further information. 41 Desirable <150 Borderline high 150-199 High 200-499 Very High >500 42 Desirable <200 Borderline high 200-239 High >239 43 Low <40 Desirable: 40-60 High: >60 44 Desirable: <100 mg/dL Near Optimal: 100-129 mg/dL Borderline High: 130-159 mg/dL High: 160-189 mg/dL Very High: >189 mg/dL 45 Because ethnic data is not always readily [...] 15-29 5 Kidney failure <15 (or dialysis) 46 --- 06/20/141647 --- Platelet Count previously reported as: 233 10 3/ul 47 --- 06/20/141647 --- MPV previously reported as: 7 L um3 48 Desirable <150 Borderline high 150-199 High 200-499 Very High >500 49 Desirable <200 Borderline high 200-239 High >239 50 Low <40 Desirable: 40-60 High: >60 51 Desirable <100 Near Optimal 100-129 Borderline high 130-159 High 160-189 Very High >189 52 Serum levels of PSA measured using the [employer] DXI Hybritech immunoassay should not be interpreted [...] methods or kits cannot be used interchangeably. 53 RUN DATE: 12/06/13 [facility] LAB LIVE PAGE 1 RUN TIME: [address] [place] [address] Specimen Inquiry Name: ALEXANDRU CHOPRA : [address]: Ishaan Maki MD Acct: [id number] Unit: [id number] AGE: 63 Location: [facility] Re12/05/13 SEX: M Status: REG REF SPEC: [id number] DARBY: 12/05/13- SUBM DR: Ishaan Maki MD REQ: [id number] RECD: 12/05/13-1028 STATUS: CONG RODRIGUEZ DR: Kevin [...] performed at Main Lab DEPARTMENT OF PATHOLOGY, [address] [place] [address] Joselo Jamil M.D. Director [facility] Permit #[id number] 54 Because ethnic data is not always [...] Date CPT Code Description Status Comment 03/11/2018 54498 Diffusing Capacity Completed 03/11/2018 21536 Plethysmography Determination Lung Completed Volumes & Per Airway Resist 03/11/2018 36974 Pulmonary Stress Testing, Inc Measurement Completed Heart Rate, Oximetry 03/11/2018 68471 Pulmonary Function><Bronchodil Completed 02/11/2018 13668 ECHO Transthorasic Realtime 2D W Doppler Completed & Color Flow Hosp 08/06/2016 97737 Stress Test Completed 08/06/2016 73116 Myocardial Perfusion Imaging Tomographic Completed (Spect) Multiple Studies 08/01/2016 76144 ECHO Transthoracic, Real-Time 2D With Completed Doppler And Color Flow 07/30/2016 44222 Holter Monitor Review (24 hr)dr review & Completed interp only 07/29/2016 03493 ECG Monitor/Recording W/Visual Completed Superimposition Scanning 09/25/2014 53871 Diffusing Capacity Completed 09/25/2014 95886 Plethysmography Determination Lung Completed Volumes & Per Airway Resist 09/25/2014 23277 Pulmonary Function><Bronchodil Completed 12/05/2013 Colonoscopy Completed 10/19/2010 Colonoscopy Completed Colon polyps Encounters Type Date Location Provider CPT E/M Dx Office Visit 05/06/2018 Pul[place] [address] Z01.811 2:00p [facility] J44.9 R09.02 Office Visit 05/04/2018 9:10a [facility] Chuck Fiore, 08171 R63.4 Infectious Diseases MAneudy D38.5 R93.8 Office Visit 05/03/2018 10:40a [facility] Internal Medicine Kevin Green, [address] Z01.810 - Mathieu Morales J33.9 J44.9 I10 K21.9 Office Visit 04/28/2018 3:15p [facility] [place] [address] J32.9 Hospitalists J44.9 I10 Office Visit 04/26/2018 3:14p [facility] MISHA Dickerson [address]214 R53.1 Assoc,pc Hospitalists R51 J44.9 J32.9 Office Visit 04/26/2018 1:20p [facility] Joyce Fiore, 60713 J32.9 Infectious Diseases MAneudy R63.0 R63.4 R31.9 R53.1 Office Visit 04/22/2018 10:40a [facility] [place] [address] R10.9 Dyana J32.1 J32.2 R63.1 Office Visit 04/16/2018 10:10a [facility] Joyce Fiore, [address] J32.2 Infectious Diseases MAneudy J32.1 Office Visit 04/08/2018 9:15a [facility] [place] [address] J44.9 [facility] J96.10 Office Visit 03/26/2018 4:00p [facility] Internal Medicine - Johnson Yoo, SEAN [address] J01.90 [place] R04.2 Office Visit 02/22/2018 2:40p [facility] Internal Medicine - Johnson Yoo, SEAN [address]11 Z87.891 [place] J44.9 Office Visit 02/18/2018 1:45p [facility] [place] [address] J44.9 [facility] R09.02 Z87.891 Office Visit 02/15/2018 2:30p [facility] [place] [address] J44.1 [facility] F17.201 R06.02 R09.02 Z99.81 Office Visit 02/15/2018 8:38a [facility], [place] [address] J44.1 Hospitalists I10 A49.8 Office Visit 02/14/2018 8:37a [facility], [place] [address] J44.1 Hospitalists I10 A49.8 Office Visit 02/13/2018 8:35a [facility], Mindy Kunz, 45945 J44.1 Hospitalists M.DAbdifatah I10 Office Visit 02/13/2018 2:30p [facility] [place] [address] J44.1 [facility] F17.201 R06.02 Z99.81 Office Visit 02/12/2018 8:29a [facility], Mindy Kunz, [address]6213 J44.1 Hospitalists M.DAbdifatah I10 Office Visit 02/11/2018 8:11[place], [address] J44.1 Assoc, Hospitalists MAbdifatahDAbdifatah I10 Office Visit 02/11/2018 12:00p [facility] [place] [address] F17.201 [facility] J44.1 J96.11 J96.12 Office Visit 11/30/2017 3:20p [facility] Internal Medicine Kevin Green, 18169 R10.13 - Mathieu Morales G43.C0 J44.9 Office Visit 09/09/2017 2:00p [facility] Internal Medicine Kevin Green, 51476 R10.13 - Mathieu Morales J44.1 Office Visit 09/04/2017 [facility] Maria R Farhan, 35787 J96.02 10:58a Assoc,pc [employer] Hospitalists J44.1 R10.13 Z72.0 Office Visit 09/03/2017 3:31p [facility] [place] [address] R10.13 J44.1 G43.C0 Office Visit 09/03/2017 [facility] Maria R Farhan, 49495 J96.02 10:57a Assoc,pc [employer] Hospitalists J44.1 R10.13 Z72.0 Office Visit 09/02/2017 10:57a [facility] Assoc, Diana King, 25782 J96.02 Hospitalists N.PAbdifatah J44.1 R10.13 Z72.0 [facility] Visit 09/01[facility]2017 [facility] Diana King, 61061 J96.02 Hospitalists N.PAbdifatah J44.1 Z72.0 Office Visit 07/22/2017 2:40p [facility] Kevin Green, 05544 J44.9 - Mathieu Morales S06.0x9D Office Visit 02/23/2017 3:00p [facility] Kevin Green, 05796 Z00.00 - Mathieu Morales J44.9 E78.2 F17.210 R60.0 Office Visit 01/28/2016 1:00p [facility] Kevin Green, 52783 Z00.00 - Dyana Morales J44.9 F17.210 Z80.42 E78.2 R73.01 Z23 R35.0 Office Visit 07/17/2015 2:40p [facility] Kevin Green, 63747 J44.9 - Dyana Morales F17.210 Z12.2 Z23 Office Visit 05/17/2015 12:40p [facility] Internal [facility] - Anna Jin 17538 381.00 Dyana Morales Office Visit 03/02/2015 9:30a [facility] [address] 496 [facility] 305.1 278.00 Office Visit 02/13/2015 9:00a [facility] Internal Medicine - Kevin Green, [address] 496 Dyana Morales Office Visit 10/06/2014 2:00p [facility] [place] [address] 496 [facility] 305.1 278.00 780.59 Office Visit 09/12/2014 3:40p [facility] Internal Medicine - Kevin Green, [address]9097 496 Dyana Morales v03.82 Office Visit 06/07/2014 9:00a [facility] Kevin Green, 68298 V70.0 - Dyana Morales 496 272.2 784.0 V73.89 V16.42 V81.2 Office Visit 04/10/2014 3:40p [facility] Kevin Green, 70485 496 Dyana Morales 784.0 Office Visit 12/08/2013 10:00a [facility] Kevin Green, 74260 272.2 - Dyana Morales 496 784.0 305.1 Office Visit 08/08/2013 4:20p [facility] Wallace Cabrales 43553 272.2 - Dyana Morales 276.1 Office Visit 07/19/2013 11:20a [facility] Wallace Cabrales 83775 784.0 - Dyana Morales 780.52 728.85 Office Visit 05/09/2013 3:20p [facility] Wallace Cabrales M.D. 99957 496 - [place] 272.2 784.0 305.1 278.00 Office Visit 05/27/2012 8:30a [facility] Alexandru Hui, 14578 784.0 [facility] Andrew 723.1 Plan of Care Future Appointment(s):07/12/2018 11:30 am - Sapna Torres MD at [facility]05/28/2018 9:30 am - Chuck Fiore M.D. at [facility] For Infectious Dxtamndm81/07/2018 8:40 am - Johnson Yoo NP at [facility] Internal Medicine - Vgrtepvvr52/19/2018 - Sapna Torres MDZ01.811 Encounter for preprocedural respiratory examinationFollow up:2 sbmfyqD54.9 Chronic obstructive pulmonary disease, ngkeqxrvvaqU06.02 Hypoxemia
[2018-05-22 20:25] LABS: INR 1.18 (0.77-1.02)
[2018-05-22 20:28] LABS: EGFR Non-African American 135.8 (>60)
[2018-05-22] MEDS ORDERED: Iohexol 300* (CONTRAST) 10 ML SDV IV ONE (20:31)
[2018-05-22 20:50] LABS: Urine Appearance Clear; Urine Blood 1+ (Negative); Urine Color Straw; Urine Ketones Negative (Negative); Urine Protein Negative (Negative); Urine Red Blood Cell Trace(0-2/hpf) (Absent); Urine Specific Gravity 1.003 (1.010-1.030); Urine Urobilinogen Negative (Negative); Urine White Blood Cell Trace(0-5/hpf) (Absent)
[2018-05-22] MEDS ORDERED: Morphine INJ* 2 MG/ML 1 ML SYRINGE (TWO MG - NEW SYRINGE VERSION) ONE (21:37)
[2018-05-22] MEDS ORDERED: Piperacillin/Tazobac ADVAN(*) 3.375 GM in NS 0.9% 100 ML* 100 ML IVPB ONE (21:54)
[2018-05-23 02:18] LABS: ABS Basophils 0.1 10^3/ul (0-0.2); ABS Eosinophils 0.1 10^3/ul (0-0.6); ABS Lymphocytes 1.1 10^3/ul (1.0-4.8); ABS Monocytes 1.4 10^3/ul (0-0.8); ABS Neutrophils 16.2 10^3/ul (1.5-7.7); ABS Nucleated RBC 0 10^3/ul; Eosinophil % 0.3 % (0-6); Hematocrit 39 % (42-52); Hemoglobin 12.9 g/dl (14.0-18.0); Lymphocyte % 5.8 % (25-47); Mean Corpuscular HGB Conc 34 g/dl (31-36); Mean Corpuscular Hemoglobin 31 pg (27-31); Mean Corpuscular Volume 93 fL (80-94); Mean Platelet Volume 6.1 um3 (7.4-10.4); Nucleated Red Blood Cells % 0; Platelet Count 436 10^3/ul (150-450); Red Blood Count 4.14 10^6/ul (4.00-5.40); Red Cell Distribution Width 15 % (10.5-15); White Blood Count 18.9 10^3/ul (3.5-10.8)
[2018-05-23] MEDS ORDERED: Ondansetron INJ* 2 MG/ML VIAL IV ONE (02:23)
[2018-05-23] MEDS ORDERED: Baclofen TAB* 10 MG PO PRN (04:01)
[2018-05-23] MEDS ORDERED: Acetaminophen TAB* 325 MG PO PRN (04:01)
[2018-05-23] MEDS ORDERED: Butalb/Acetamin/Caff TAB* 1 TAB PO PRN (04:01)
[2018-05-23] MEDS ORDERED: Albuterol HFA INHALER* 8 gm MDI INH PRN (04:01)
--- NOTE | 2018-05-23 04:20 | HP ---
H&P (Free Text) History and Physical: PCP: Mariana Green MD Date/Time: 05/23/2018 0330 CC: N/V HPI: Mr Chopra is a 68YO male HX COPD, a benign pontine lesion, dilated aortic root, chronic hypercarbic respiratory failure, GERD presents with a multitude of various complaints: insomnia, N/V, subjective F/C with normal temperature, sweats, coughing up blood, & generalized malaise. He underwent nasal surgery 10/2017 with BX preliminarily suspicious for high-grade lymphoma which explains his spitting up blood, subjective F/C, & sweats. His insomnia is likely 2nd anxiety related to this. He has an appointment with oncology on , but is fairly reluctant to consider discharge. His WBCs were 20k which is more than they had typically been over the last 2 months, but decreased to 18.9k after 2L IVFs which is more consistent with his recent baseline. Of note he has been drinking water and has eaten some crackers and a small amount of apple sauce in the ED while complaining of nausea, but has had no emesis. PMedHx nasal mass suspicious for high-grade lymphoma on BX 05/19/2018 COPD, emphysema dilated aortic root 4.7cm chronic hypercarbic respiratory failure benign pontine lesion GERD Ambulatory Orders Baclofen TAB* [Lioresal TAB*] 5 mg PO BID PRN 09/01/17 Butalb/Acetamin/Caff TAB* [Fioricet TAB*] 1 tab PO BID PRN 09/01/17 Nortriptyline CAP* [Nortriptylline CAP*] 10 mg PO BEDTIME 09/01/17 Omeprazole CAP* [Prilosec CAP* 20 MG] 40 mg PO DAILY@0730 #60 rodo. 09/04/17 Acetaminophen TAB* [Tylenol TAB*] 650 mg PO Q6H PRN tab 02/15/18 amLODIPine TAB* [Norvasc 5 mg TAB*] 10 mg PO DAILY #30 tab 02/15/18 Albuterol HFA INHALER* [Ventolin HFA Inhaler*] 1 puff INH Q6H PRN 04/26/18 Gabapentin CAP(*) [Neurontin 300 CAP(*)] 300 mg PO QPM 04/26/18 Ranitidine TAB (NF) [Zantac TAB (NF)] 150 mg PO BID 04/26/18 oxyCODONE TAB* [Roxycodone TAB 5 mg*] 5 mg PO BID PRN 04/26/18 Oxycodone HCl/Acetaminophen [Endocet 10-325 mg Tablet] 2 each PO Q6H PRN #40 tablet MDD 8 05/19/18 Allergies budesonide [From Symbicort] Allergy (Verified 05/22/18 19:20) Unknown Reaction Details cefuroxime [From Ceftin] Allergy (Verified 05/22/18 19:20) Difficulty Breathing formoterol [From Symbicort] Allergy (Verified 05/22/18 19:20) Unknown Reaction Details warfarin Allergy (Verified 05/23/18 03:39) Unknown Reaction Details can not walk or stand amoxicillin [From Augmentin] Adverse Reaction (Verified 05/22/18 19:20) GI Upset azithromycin Adverse Reaction (Verified 05/23/18 03:39) GI Upset clavulanic acid [From Augmentin] Adverse Reaction (Verified 05/22/18 19:20) GI Upset levofloxacin Adverse Reaction (Verified 05/23/18 03:39) Abdominal Pain meperidine [From Demerol] Adverse Reaction (Verified 05/23/18 03:39) Hallucinations PSurgHx appendectomy nasal surgery 05/19 for mass suspicious for high-grade lymphoma SocHx: quit smoking Aug 2017 w/ ~50 PYHX, mild alcohol, no recreational drugs; lives with his ; full code status, needs revisiting FamHx: positive for CAD, colon CA, lymphoma, & brain tumor ROS: as above, otherwise reviewed and all were negative vitals: Vital Signs Temp 35.8 C 05/22/18 19:15 Pulse 81 05/23/18 00:18 Resp 19 05/23/18 00:18 BP 137/60 05/23/18 00:18 Pulse Ox 100 05/23/18 00:18 Intake & Output 05/22/18 05/22/18 05/23/18 11:59 23:59 11:59 Intake Total 1999 2203 Balance 1999 2203 Weight 72.575 kg Intake: IV Fluids 1000 1104 IVPB 1000 1100 Constitutional: NAD, normally developed, overweight white male HEENM: atraumatic; sclera/conjunctiva: anicteric/clear; hearing: clinically intact; oropharynx: clear, mucosa moist Neck: soft tissue: non-tender; thyroid: normal Pulmonary: diminished bilaterally, fair aeration, no accessory muscle use CV: RR/RR, normal S1S2, no carotid bruit, no jugular venous distention, 2+ B DP/ PT, trace BLE edema Abdominal: soft, non-distended, non-tender, no rebound/guarding/rigidity, normoactive bowel sounds, no hepatosplenomegaly or masses, no costovertebral angle tenderness Musculoskeletal: general: grossly intact, non-tender to palpation Integumental: normal appearance and texture of exposed skin Psychiatric orientation: AA&O to PPS affect: anxious mood: cooperative eye contact: good content: reliable responses: timely insight: fair Testing: Lab Results 05/22/18 05/22/18 05/22/18 Range/Units 19:56 19:56 19:56 WBC 20.1 H (3.5-10.8) 10^3/ul RBC 4.51 (4.00-5.40) 10^6/ul Hgb 13.8 L (14.0-18.0) g/dl Hct 41 L (42-52) % MCV 92 (80-94) fL MCH 31 (27-31) pg MCHC 33 (31-36) g/dl RDW 15 (10.5-15) % Plt Count 485 H (150-450) 10^3/ul MPV 6.4 L (7.4-10.4) um3 Neut % (Auto) 86.5 H (38-83) % Lymph % (Auto) 5.6 L (25-47) % [place] % (Auto) 7.0 (0-7) % Eos % (Auto) 0.5 (0-6) % Baso % (Auto) 0.4 (0-2) % Absolute Neuts (auto) 17.4 H (1.5-7.7) 10^3/ul Absolute Lymphs (auto) 1.1 (1.0-4.8) 10^3/ul Absolute Monos (auto) 1.4 H (0-0.8) 10^3/ul Absolute Eos (auto) 0.1 (0-0.6) 10^3/ul Absolute Basos (auto) 0.1 (0-0.2) 10^3/ul Absolute Nucleated RBC 0 10^3/ul Nucleated RBC % 0 INR (Anticoag Therapy) (0.77-1.02) APTT (26.0-36.3) seconds Sodium 139 (135-145) mmol/L Potassium 3.6 (3.5-5.0) mmol/L Chloride 97 L (101-111) mmol/L Carbon Dioxide 34 H (22-32) mmol/L Anion Gap 8 (2-11) mmol/L BUN 4 L (6-24) mg/dL Creatinine 0.59 L (0.67-1.17) mg/dL Est GFR ( Amer) 164.3 (>60) Est GFR (Non-Af Amer) 135.8 (>60) BUN/Creatinine Ratio 6.8 L (8-20) Glucose 116 H (70-100) mg/dL Lactic Acid 1.5 (0.5-2.0) mmol/L Calcium 9.1 (8.6-10.3) mg/dL Magnesium 2.3 (1.9-2.7) mg/dL Total Bilirubin 0.50 (0.2-1.0) mg/dL AST 24 (13-39) U/L ALT 14 (7-52) U/L Alkaline Phosphatase 112 H (34-104) U/L C-Reactive Protein 67.22 H (<8.01) mg/L Total Protein 6.9 (6.4-8.9) g/dL Albumin 3.4 (3.2-5.2) g/dL Globulin 3.5 (2-4) g/dL Albumin/Globulin Ratio 1.0 (1-3) Amylase 13 L (29-103) U/L Lipase < 10 L (11.0-82.0) U/L Urine Color Urine Appearance Urine pH (5-9) Ur Specific [place] (1.010-1.030) Urine Protein (Negative) Urine Ketones (Negative) Urine Blood (Negative) Urine Nitrate (Negative) Urine Bilirubin (Negative) Urine Urobilinogen (Negative) Ur Leukocyte Esterase (Negative) Urine WBC (Auto) (Absent) Urine RBC (Auto) (Absent) Urine Bacteria (Absent) Urine Glucose (Negative) 05/22/18 05/22/18 05/23/18 Range/Units 19:56 20:22 02:08 WBC 18.9 H (3.5-10.8) 10^3/ul RBC 4.14 (4.00-5.40) 10^6/ul Hgb 12.9 L (14.0-18.0) g/dl Hct 39 L (42-52) % MCV 93 (80-94) fL MCH 31 (27-31) pg MCHC 34 (31-36) g/dl RDW 15 (10.5-15) % Plt Count 436 (150-450) 10^3/ul MPV 6.1 L (7.4-10.4) um3 Neut % (Auto) 85.9 H (38-83) % Lymph % (Auto) 5.8 L (25-47) % [place] % (Auto) 7.4 H (0-7) % Eos % (Auto) 0.3 (0-6) % Baso % (Auto) 0.6 (0-2) % Absolute Neuts (auto) 16.2 H (1.5-7.7) 10^3/ul Absolute Lymphs (auto) 1.1 (1.0-4.8) 10^3/ul Absolute Monos (auto) 1.4 H (0-0.8) 10^3/ul Absolute Eos (auto) 0.1 (0-0.6) 10^3/ul Absolute Basos (auto) 0.1 (0-0.2) 10^3/ul Absolute Nucleated RBC 0 10^3/ul Nucleated RBC % 0 INR (Anticoag Therapy) 1.18 H (0.77-1.02) APTT 31.9 (26.0-36.3) seconds Sodium (135-145) mmol/L Potassium (3.5-5.0) mmol/L Chloride (101-111) mmol/L Carbon Dioxide (22-32) mmol/L Anion Gap (2-11) mmol/L BUN (6-24) mg/dL Creatinine (0.67-1.17) mg/dL Est GFR ( Amer) (>60) Est GFR (Non-Af Amer) (>60) BUN/Creatinine Ratio (8-20) Glucose (70-100) mg/dL Lactic Acid (0.5-2.0) mmol/L Calcium (8.6-10.3) mg/dL Magnesium (1.9-2.7) mg/dL Total Bilirubin (0.2-1.0) mg/dL AST (13-39) U/L ALT (7-52) U/L Alkaline Phosphatase (34-104) U/L C-Reactive Protein (<8.01) mg/L Total Protein (6.4-8.9) g/dL Albumin (3.2-5.2) g/dL Globulin (2-4) g/dL Albumin/Globulin Ratio (1-3) Amylase (29-103) U/L Lipase (11.0-82.0) U/L Urine Color Straw Urine Appearance Clear Urine pH 7.0 (5-9) Ur Specific [place] 1.003 L (1.010-1.030) Urine Protein Negative (Negative) Urine Ketones Negative (Negative) Urine Blood 1+ A (Negative) Urine Nitrate Negative (Negative) Urine Bilirubin Negative (Negative) Urine Urobilinogen Negative (Negative) Ur Leukocyte Esterase Negative (Negative) Urine WBC (Auto) Trace(0-5/hpf) (Absent) Urine RBC (Auto) Trace(0-2/hpf) (Absent) Urine Bacteria Absent (Absent) Urine Glucose Negative (Negative) CXR, personally reviewed: wide mediastinum w/ HX dilated aortic root, no acute process CT abd/pel WO, personally reviewed: IMPRESSION: 1. Gallbladder distention, similar in appearance to the comparison study 2. No other acute intra-abdominal findings US RUQ: report pending CT sinuses WO: IMPRESSION: 1. Extensive sinus without appreciable change from the comparison study. Impression: 67M HX COPD, a benign pontine lesion, dilated aortic root, chronic hypercarbic respiratory failure, GERD presents with DIAGNOSIS & PLAN Primary N/V, unclear etiology, suspect mixed nasal bleeding & anxiety : IVFs : clear liquid diet : anti-emetics : supportive care anxiety : alprazolam PRN insomnia : trial of zolpidem tonight Secondary nasal mass suspicious for high-grade lymphoma on BX 05/19/2018 : continue outpatient evaluation, has ONC appointment HTN : continue amlodipine COPD, emphysema : continue albuterol dilated aortic root 4.7cm : no acute issues chronic hypercarbic respiratory failure : no acute issues : cautious use of supplemental oxygen HX benign pontine lesion : no acute issues GERD : continue ranitidine & omeprazole Admission Rational: observation for N/V & failure to thrive DVTp: SCDs & heparin SQ Code Status: full HCP:
[2018-05-23] MEDS ORDERED: Zolpidem TAB* 5 MG PO ONE (04:34)
[2018-05-23] MEDS: NS 0.9% 1000 ML* 1,000 ML IV SCH ×2 (06:31→17:20)
[2018-05-23 06:47] LABS: ABS Basophils 0 10^3/ul (0-0.2); ABS Eosinophils 0.1 10^3/ul (0-0.6); ABS Lymphocytes 0.9 10^3/ul (1.0-4.8); ABS Monocytes 1.3 10^3/ul (0-0.8); ABS Neutrophils 15.7 10^3/ul (1.5-7.7); ABS Nucleated RBC 0 10^3/ul; Eosinophil % 0.3 % (0-6); Hematocrit 41 % (42-52); Hemoglobin 13.5 g/dl (14.0-18.0); Lymphocyte % 4.9 % (25-47); Mean Corpuscular HGB Conc 33 g/dl (31-36); Mean Corpuscular Hemoglobin 31 pg (27-31); Mean Corpuscular Volume 92 fL (80-94); Mean Platelet Volume 6.4 um3 (7.4-10.4); Nucleated Red Blood Cells % 0; Platelet Count 454 10^3/ul (150-450); Red Blood Count 4.42 10^6/ul (4.00-5.40); Red Cell Distribution Width 15 % (10.5-15)
[2018-05-23 07:04] LABS: EGFR Non-African American 128.3 (>60)
[2018-05-23] MEDS ORDERED: Potassium Chlor TAB* 20 MEQ TAB.ER PO ONE (07:28)
--- NOTE | 2018-05-23 07:50 | RAD ---
Indication: Shortness of breath. Single frontal view of the chest performed at 2223 hours was reviewed. Comparison is made with previous exam dated April 26, 2018. No mediastinal shift is noted. Heart is of normal size and configuration. Lung garcia appear clear. IMPRESSION: NO ACTIVE CARDIOPULMONARY DISEASE IS NOTED. R0
--- NOTE | 2018-05-23 09:13 | PN ---
Subjective Date of Service: 05/23/18 Interval History: Patient seen and examined at bedside. Denies fever, chills, shortness of breath , chest discomfort, V/D. Pt states that he was able to get some sleep this morning after he received Ambien. He continues to have some nausea that is improving, and has been able to keep down clear liquids. He coughed up a large "glob" of stuff this morning (it is difficult to assess since it was spit into his urinal with urine). Pt states that he is on 3L O2 at home. Family History: Unchanged from Admission Social History: Unchanged from Admission Past Medical History: Unchanged from Admission Objective Active Medications: Acetaminophen (Tylenol Tab*) 650 mg PO Q6H PRN Reason: FEVER/PAIN Acetaminophen/Butalbital/Caffeine (Fioricet Tab*) 1 tab PO BID PRN Reason: HEADACHE Albuterol (Ventolin Hfa Inhaler*) 1 puff INH Q6H PRN Reason: SHORTNESS OF BREATH Amlodipine Besylate (Norvasc Tab*) 10 mg PO DAILY TERRANCE Baclofen (Lioresal Tab*) 5 mg PO BID PRN Reason: SPASMS Docusate Sodium (Colace Cap*) 200 mg PO BID TERRANCE Famotidine (Pepcid Tab*) 20 mg PO BID TERRANCE; Protocol Gabapentin (Neurontin Cap(*)) 300 mg PO QPM TERRANCE Heparin Sodium (Porcine) (Heparin Vial(*)) 5,000 units SUBCUT Q8HR TERRANCE Sodium Chloride (Ns 0.9% 1000 Ml*) 1,000 mls @ 100 mls/hr IV PER RATE TERRANCE Nortriptyline HCl (Pamelor Cap*) 10 mg PO BEDTIME TERRANCE Omeprazole (Prilosec Cap*) 40 mg PO DAILY@0730 TERRANCE Oxycodone HCl (Roxycodone Tab*) 5 mg PO BID PRN Reason: PAIN Oxycodone HCl (Roxycodone Tab*) 10 mg PO Q6H PRN Reason: PAIN Oxycodone/Acetaminophen (Percocet 5/325 Tab*) 2 tab PO Q6H PRN Reason: PAIN Vital Signs - 8 hr 05/23/18 05/23/18 05/23/18 01:18 01:33 01:48 Temperature Pulse Rate 87 98 99 Respiratory 23 26 22 Rate Blood Pressure 156/70 170/93 132/64 (mmHg) O2 Sat by Pulse 99 99 99 Oximetry 05/23/18 05/23/18 05/23/18 02:00 02:18 02:48 Temperature Pulse Rate 103 91 Respiratory 17 22 16 Rate Blood Pressure 110/90 118/67 (mmHg) O2 Sat by Pulse 99 99 Oximetry 05/23/18 05/23/18 05/23/18 03:00 03:18 03:48 Temperature Pulse Rate 127 89 91 Respiratory 23 18 26 Rate Blood Pressure 137/72 168/79 (mmHg) O2 Sat by Pulse 88 99 100 Oximetry 05/23/18 05/23/18 05/23/18 04:00 04:18 04:48 Temperature Pulse Rate 90 95 83 Respiratory 21 21 23 Rate Blood Pressure 153/78 152/76 (mmHg) O2 Sat by Pulse 98 98 98 Oximetry 05/23/18 05/23/18 05/23/18 05:00 05:19 05:20 Temperature 97.3 F 97.7 F Pulse Rate 92 85 98 Respiratory 17 20 22 Rate Blood Pressure 129/73 160/73 (mmHg) O2 Sat by Pulse 99 98 96 Oximetry 05/23/18 05/23/18 05:56 07:21 Temperature 97.7 F 98.3 F Pulse Rate 98 91 Respiratory 22 17 Rate Blood Pressure 160/73 133/68 (mmHg) O2 Sat by Pulse 96 100 Oximetry Oxygen Devices in Use Now: OxyMask - 3L Appearance: NAD, laying in bed Ears/Nose/Mouth/Throat: Mucous Membranes Moist Respiratory: Symmetrical Chest Expansion and Respiratory Effort, Clear to Auscultation Cardiovascular: NL Sounds; No Murmurs; No JVD, RRR Abdominal: NL Sounds; No Tenderness; No Distention Extremities: No Edema Skin: No Rash or Ulcers Neurological: Alert and Oriented x 3, NL Muscle Strength and Tone Lines/Tubes/Other Access: Clean, Dry and Intact Peripheral IV - site benign Nutrition: Taking PO's Result Diagrams: 05/23/18 06:20 05/23/18 06:20 Assess/Plan/Problems-Billing Assessment: Mr. Chopra is a 68 yo male with PMH significant for COPD, benign pontine lesion , dilated aortic root, chronic hypercarbic respiratory failure, and GERD who presented to the ED with multiple complaints including anxiety, insomnia, nausea and vomiting. - Patient Problems (1) Nausea & vomiting Code(s): R11.2 - NAUSEA WITH VOMITING, UNSPECIFIED SNOMED Code(s): 96316203 Comment: - Improving - Unclear etiology, suspect multifactoral (nasal bleeding and anxiety) - Continue clear liquid diet, anti-emetics and supportive care (2) Anxiety Code(s): F41.9 - ANXIETY DISORDER, UNSPECIFIED SNOMED Code(s): 13101193 Comment: - Continue alprazolam PRN and supportive care (3) Insomnia Code(s): G47.00 - INSOMNIA, UNSPECIFIED SNOMED Code(s): 989896530 Comment: - Continue zolpidem PRN (4) Leukocytosis Code(s): D72.829 - ELEVATED WHITE BLOOD CELL COUNT, UNSPECIFIED SNOMED Code(s) : 254384455 Comment: - Improved with IV hydration - Continue to monitor (5) Hypokalemia Code(s): E87.6 - HYPOKALEMIA SNOMED Code(s): 61301562 Comment: - Will give replacement today and recheck labs in the AM (6) Nasal mass Code(s): J34.9 - UNSPECIFIED DISORDER OF NOSE AND NASAL SINUSES SNOMED Code(s) : 661554946 Comment: - High suspicion for high-grade lymphoma, S/P bx 05/19/18 - Outpatient eval with ONC (appt on 05/27) (7) Chronic hypercapnic respiratory failure Comment: - No acute isssue at this time - Cautious use of supplemental O2 (8) HTN (hypertension) Code(s): I10 - ESSENTIAL (PRIMARY) HYPERTENSION SNOMED Code(s): 66876509 Comment: - SBP 120-160's - Continue norvasc (9) COPD (chronic obstructive pulmonary disease) Code(s): J44.9 - CHRONIC OBSTRUCTIVE PULMONARY DISEASE, UNSPECIFIED SNOMED Code(s): 95194714 Comment: - No signs of acute exacerbation at this time - Continue albuterol (10) GERD (gastroesophageal reflux disease) Code(s): K21.9 - GASTRO-ESOPHAGEAL REFLUX DISEASE WITHOUT ESOPHAGITIS SNOMED Code(s): 110745070 Comment: - Continue ranitidine and omeprazole (11) Pontine lesion Code(s): G93.9 - DISORDER OF BRAIN, UNSPECIFIED SNOMED Code(s): 976285618 Comment: - Benign - No acute issue at this time (12) Aortic root aneurysm Code(s): I71.9 - AORTIC ANEURYSM OF UNSPECIFIED SITE, WITHOUT RUPTURE SNOMED Code(s): 074792428 Comment: - 4.7 cm - No acute issue at this time (13) DVT prophylaxis Code(s): CNW9731 - SNOMED Code(s): 667116893 Comment: - SQ heparin and SCDs (14) Full code status Code(s): Z78.9 - OTHER SPECIFIED HEALTH STATUS SNOMED Code(s): 526413469 Status and Disposition: OBV. Discharge to home when medically stable.
--- NOTE | 2018-05-23 09:49 | RAD ---
Indication: Abdominal pain Contrast: Administered 97.1 ml of OMNIPAQUE 300 mg/ml CT of the abdomen and pelvis was performed after IV contrast administration. No oral contrast was administered. The lung bases demonstrate no pleural fluid, nodules or masses. Heart is of normal size without evidence of pericardial effusion. Liver is normal in size. Low density lesions in the left lobe of liver likely represent small cysts. These are not significantly changed since previous exam of February 11, 2018. No intrahepatic duct dilatation is noted. The gallbladder is distended however no calcified gallstones are noted. No pericholecystic fluid or wall thickening is noted. The pancreas demonstrates no mass or pancreatic duct dilatation. The common bile duct is not dilated. The spleen is normal in size. Bilateral adrenal hyperplasia is noted. The kidneys demonstrate extrarenal pelvis without evidence of obstructive uropathy. Atherosclerotic aorta is noted. The retroperitoneal lymphadenopathy is noted. Small bowel demonstrates no abnormal dilatation. The colon is filled with stool. Urinary bladder is distended. No hernias are identified. The bony structures are grossly unremarkable. Degenerative disc disease is noted at multiple levels within the lumbar spine. IMPRESSION: Hepatic cysts in the left lobe of the liver. Distended gallbladder. No abnormal masses or fluid collections are noted.
[2018-05-23] MEDS ORDERED: Zolpidem TAB* 5 MG PO PRN (10:03)
--- NOTE | 2018-05-23 10:14 | RAD ---
Indication: Nasal congestion. CT of the sinuses was obtained in the axial plane. Sagittal and coronal reconstructed images were obtained. Comparison is made with previous exam dated May 05, 2018. There is mucosal thickening of the maxillary sinuses which is minimal. This is unchanged from previous exam. There is opacification of the ethmoid air cells. This has extended to the left anterior ethmoid air cells. There is opacification of the maxillary sinuses. Again noted is erosion of the anterior inferior margin of the sphenoid extending to the nasopharynx. There is also progression of disease involving the right ethmoid air cells extending anteriorly. There is extension into the nasal cavity. The orbits are otherwise intact with no extension into the lamina preparation. IMPRESSION: Opacification of the ethmoid air cells extending anteriorly and progressive since previous exam extending into the nasal cavity. Erosion of the greater wing of the sphenoid as well as the inferior sphenoid sinuses extending to the nasopharynx is present. This may represent an aggressive inflammatory process such as a fungal sinusitis or neoplastic process. Correlation with direct visualization and tissue sampling should BE considered.
[2018-05-23] MEDS: Omeprazole CAP* 20 MG PO SCH (10:21)
[2018-05-23] MEDS: Docusate CAP* 100 MG PO SCH ×2 (10:21→19:51)
[2018-05-23] MEDS: amLODIPine TAB* 5 MG PO SCH (10:21)
[2018-05-23] MEDS: Famotidine TAB* 20 MG PO SCH ×2 (10:22→19:51)
[2018-05-23] MEDS: ALPRAZolam TAB* 0.25 MG PO PRN ×2 (10:22→20:03)
[2018-05-23] MEDS: Ondansetron INJ* 2 MG/ML VIAL IV PRN (10:24)
--- NOTE | 2018-05-23 12:04 | RAD ---
Indication: Right upper quadrant pain. Vomiting. Real-time sonography of the right upper quadrant was performed. The liver is normal in size. There is a small cyst in the left lobe measures up to 1.7 cm. No intrahepatic duct dilatation is noted. The gallbladder is distended. Echogenic sludge is noted. No gallstones are identified. Gallbladder wall measures 2.4 mm. The common duct measures 4.1 mm. Pancreas is not visualized. The right kidney measures 10.8 x 5.4 x x 5.4 cm with no hydronephrosis. IMPRESSION: Distended gallbladder with biliary sludge. No evidence of gallstones is noted.
[2018-05-23] MEDS: oxyCODONE TAB* 5 MG TAB PO PRN ×3 (13:39→21:49)
[2018-05-23] MEDS: oxyCODONE/Acetamin 5/325 MG* TAB PO PRN (15:08)
[2018-05-23] MEDS: Gabapentin CAP(*) 300 MG PO SCH (19:50)
[2018-05-23] MEDS: Nortriptyline CAP* 10 MG PO SCH (20:03)
[2018-05-24] MEDS: NS 0.9% 1000 ML* 1,000 ML IV SCH (03:37)
[2018-05-24] MEDS: oxyCODONE TAB* 5 MG TAB PO PRN ×4 (03:37→20:21)
[2018-05-24] MEDS: oxyCODONE/Acetamin 5/325 MG* TAB PO PRN ×2 (03:37→09:02)
[2018-05-24] MEDS: Heparin VIAL(*) 5000 UNITS/ML VIAL (FIVE THOUSAND) SUBCUT SCH ×3 (06:21→20:21)
[2018-05-24 07:05] LABS: EGFR Non-African American 138.5 (>60)
--- NOTE | 2018-05-24 08:48 | PN ---
Subjective Date of Service: 05/24/18 Interval History: Patient seen and examined at bedside. Denies fever, chills, shortness of breath , chest discomfort, N/V/D. Pt states that he has been able to eat clear liquids without difficulty and would like to try and advance his diet for lunch. He continues to report a headache. He also states that he feels "disoriented". Per NSG staff Pt was noted to be hypoxic with O2 sats in the 80's and O2 was increased to 15 L by RT. Pt uses O2 @ 3 L via NC at home. Family History: Unchanged from Admission Social History: Unchanged from Admission Past Medical History: Unchanged from Admission Objective Active Medications: Acetaminophen (Tylenol Tab*) 650 mg PO Q6H PRN Reason: FEVER/PAIN Acetaminophen/Butalbital/Caffeine (Fioricet Tab*) 1 tab PO BID PRN Reason: HEADACHE Albuterol (Ventolin Hfa Inhaler*) 1 puff INH Q6H PRN Reason: SHORTNESS OF BREATH Alprazolam (Xanax Tab*) 0.25 mg PO Q8H PRN Reason: ANXIETY Amlodipine Besylate (Norvasc Tab*) 10 mg PO DAILY TERRANCE Baclofen (Lioresal Tab*) 5 mg PO BID PRN Reason: SPASMS Docusate Sodium (Colace Cap*) 200 mg PO BID TERRANCE Famotidine (Pepcid Tab*) 20 mg PO BID TERRANCE; Protocol Gabapentin (Neurontin Cap(*)) 300 mg PO QPM TERRANCE Heparin Sodium (Porcine) (Heparin Vial(*)) 5,000 units SUBCUT Q8HR TERRANCE Sodium Chloride (Ns 0.9% 1000 Ml*) 1,000 mls @ 100 mls/hr IV PER RATE TERRANCE Nortriptyline HCl (Pamelor Cap*) 10 mg PO BEDTIME TERRANCE Omeprazole (Prilosec Cap*) 40 mg PO DAILY@0730 TERRANCE Ondansetron HCl (Zofran Inj*) 4 mg IV Q6H PRN Reason: NAUSEA Oxycodone HCl (Roxycodone Tab*) 5 mg PO BID PRN Reason: PAIN Oxycodone HCl (Roxycodone Tab*) 10 mg PO Q6H PRN Reason: PAIN Oxycodone/Acetaminophen (Percocet 5/325 Tab*) 2 tab PO Q6H PRN Reason: PAIN Zolpidem Tartrate (Ambien Tab*) 5 mg PO BEDTIME PRN Reason: INSOMNIA Vital Signs - 8 hr 05/24/18 05/24/18 05/24/18 02:24 02:34 03:37 Temperature 98.4 F Pulse Rate 123 Respiratory 19 20 Rate Blood Pressure 139/67 (mmHg) O2 Sat by Pulse 81 90 Oximetry 05/24/18 05/24/18 05/24/18 05:30 07:26 07:46 Temperature 98.7 F Pulse Rate 93 Respiratory 18 23 Rate Blood Pressure 147/65 (mmHg) O2 Sat by Pulse 99 Oximetry Oxygen Devices in Use Now: High Flow Nasal Cannula - 15L, decreased to 3L Appearance: NAD, sitting up on the side of the bed Ears/Nose/Mouth/Throat: Mucous Membranes Moist Respiratory: Symmetrical Chest Expansion and Respiratory Effort, Clear to Auscultation - , diminished Cardiovascular: NL Sounds; No Murmurs; No JVD, RRR Abdominal: NL Sounds; No Tenderness; No Distention Extremities: No Edema Skin: No Rash or Ulcers Neurological: Alert and Oriented x 3, NL Muscle Strength and Tone Lines/Tubes/Other Access: Clean, Dry and Intact Peripheral IV - site benign Nutrition: Taking PO's Result Diagrams: 05/23/18 06:20 05/24/18 06:28 Assess/Plan/Problems-Billing Assessment: Mr. Chopra is a 68 yo male with PMH significant for COPD, benign pontine lesion , dilated aortic root, chronic hypercarbic respiratory failure, and GERD who presented to the ED with multiple complaints including anxiety, insomnia, nausea and vomiting. - Patient Problems (1) Nausea & vomiting Code(s): R11.2 - NAUSEA WITH VOMITING, UNSPECIFIED SNOMED Code(s): 75293787 Comment: - Improving - Unclear etiology, suspect multifactoral (nasal bleeding and anxiety) - Continue clear liquid diet, anti-emetics and supportive care (2) Anxiety Code(s): F41.9 - ANXIETY DISORDER, UNSPECIFIED SNOMED Code(s): 76441458 Comment: - Continue alprazolam PRN and supportive care (3) Insomnia Code(s): G47.00 - INSOMNIA, UNSPECIFIED SNOMED Code(s): 811989389 Comment: - Continue zolpidem PRN (4) Leukocytosis Code(s): D72.829 - ELEVATED WHITE BLOOD CELL COUNT, UNSPECIFIED SNOMED Code(s) : 031179177 Comment: - Improved with IV hydration - No signs of infection, chest xray with no acute findings and UA negative - Suspect Leukomoid reaction - Continue to monitor (5) Hypokalemia Code(s): E87.6 - HYPOKALEMIA SNOMED Code(s): 70929030 Comment: - Resolved (6) Nasal mass Code(s): J34.9 - UNSPECIFIED DISORDER OF NOSE AND NASAL SINUSES SNOMED Code(s) : 711800664 Comment: - High suspicion for high-grade lymphoma, S/P bx 05/19/18 - Outpatient eval with [facility] (appt on 05/27) (7) Chronic hypercapnic respiratory failure Comment: - With chronic hypoxic respiratory failure, now with acute on chronic - No acute isssue at this time - Cautious use of supplemental O2 (8) HTN (hypertension) Code(s): I10 - ESSENTIAL (PRIMARY) HYPERTENSION SNOMED Code(s): 42418834 Comment: - SBP 130-140's - Continue norvasc (9) COPD (chronic obstructive pulmonary disease) Code(s): J44.9 - CHRONIC OBSTRUCTIVE PULMONARY DISEASE, UNSPECIFIED SNOMED Code(s): 71166015 Comment: - No signs of acute exacerbation at this time - Continue albuterol (10) GERD (gastroesophageal reflux disease) Code(s): K21.9 - GASTRO-ESOPHAGEAL REFLUX DISEASE WITHOUT ESOPHAGITIS SNOMED Code(s): 258003947 Comment: - Continue ranitidine and omeprazole (11) Pontine lesion Code(s): G93.9 - DISORDER OF BRAIN, UNSPECIFIED SNOMED Code(s): 448776412 Comment: - Benign - No acute issue at this time (12) Aortic root aneurysm Code(s): I71.9 - AORTIC ANEURYSM OF UNSPECIFIED SITE, WITHOUT RUPTURE SNOMED Code(s): 596199868 Comment: - 4.7 cm - No acute issue at this time (13) DVT prophylaxis Code(s): RUF5982 - SNOMED Code(s): 772430524 Comment: - SQ heparin and SCDs (14) Full code status Code(s): Z78.9 - OTHER SPECIFIED HEALTH STATUS SNOMED Code(s): 387914412 Status and Disposition: OBV to Inpatient. Discharge to home when medically stable.
[2018-05-24] MEDS: Famotidine TAB* 20 MG PO SCH ×2 (09:01→20:20)
[2018-05-24] MEDS: Docusate CAP* 100 MG PO SCH ×2 (09:02→20:20)
[2018-05-24] MEDS: Omeprazole CAP* 20 MG PO SCH (09:02)
[2018-05-24] MEDS: amLODIPine TAB* 5 MG PO SCH (09:03)
[2018-05-24] MEDS: ALPRAZolam TAB* 0.25 MG PO PRN (09:03)
[2018-05-24] MEDS ORDERED: D5W 1/2 NS 1000 ML BAG* 1,000 ML IV SCH (16:00)
[2018-05-24] MEDS: Acetaminophen TAB* 325 MG PO SCH ×2 (16:05→23:45)
[2018-05-24] MEDS: oxyCODONE SR TAB(*) 15 MG TAB.SR PO SCH (16:05)
[2018-05-24] MEDS: Gabapentin CAP(*) 300 MG PO SCH (17:21)
[2018-05-24] MEDS: Saline NASAL SPRAY 0.65%* BTL BOTH NARES SCH ×2 (17:36→23:46)
[2018-05-24] MEDS: Nortriptyline CAP* 10 MG PO SCH (20:21)
--- NOTE | 2018-05-24 22:25 | CONS ---
CONSULTATION REPORT: DATE OF CONSULT: 05/24/18 REFERRING PHYSICIAN: Hospitalist service. PRIMARY CARE PHYSICIAN: Dr. Green. ENT: Dr. Ramey. REASON FOR CONSULT: New diagnosis of diffuse large B-cell lymphoma. HISTORY OF PRESENT ILLNESS: Mr. Chopra is a 68-year-old male who began having difficulty with his sinuses in August. He reports sinus pressure and pain as well as intermittent nosebleeds. Symptoms were fairly severe causing him to stay up at night and he would have frequent headaches along with his sinus pain. He initially saw Dr. Green who treated him conservatively at first, but then ultimately tried several courses of antibiotics. He did not remember specifically which antibiotics that he had used, but none of them seemed to help. He was referred to [facility], where he saw Dr. Ramey in January of this year. He was prescribed a course of Augmentin but reacted very severely to it and took only several days. Symptoms continued to worsen through the spring and summer. He had multiple followups with ARIELA Luther, in Dr. Green's office with several courses of antibiotics that were unsuccessful. He had referral to Dr. Cook when he was placed on several weeks of doxycycline, again with no improvement. He has had dizziness while standing up and has had progressive weakness. Appetite has been low and he has been eating less and less. He weighed 180 pounds in August 2017 whereas 140 pounds today. Occasional low- grade fevers. No double vision, no other focal neurologic symptoms, and no pain outside of the sinuses. Review of imaging shows that he had a CT scan in June of 2017 of the brain that showed no mass or hemorrhage, but chronic sinusitis involving the ethmoid and sphenoids. Subsequent MRI in December 2017 done for central pontine gliosis showed interval worsening of paranasal sinus mucosal disease since June 2017, now with complete mucosal thickening and fluid opacification of the bilateral sphenoid sinuses. With this progressive sinus symptoms, he had a CT scan of the sinuses first ordered in August 2017 that showed opacification of the sphenoid sinuses and erosive changes and soft tissue density on the floor of the sphenoid sinus and the posterior nasopharynx with chronic sinusitis on the differential as well as fungal infection and neoplasm. Followup CT scan a week later on 05/05/17 showed similar findings and there were noted to be erosive bony changes at the floor of the sphenoid sinus and then a CT scan on showed disease progressing from April with the opacification extending anteriorly in to the nasal cavity and erosion of the wing of the sphenoid as well as floor of the sphenoid sinus. He initially saw Dr. Ramey in January, but then did not want to go back to [facility] because he had such a bad experience with the Augmentin. Ultimately as symptoms persisted, Dr. Green re-referred him and convinced him to follow up with Dr. Ramey. On reevaluation, there was great concern for the development of an aggressive sinus mass and he was scheduled for surgery on 05/19/18. Biopsy of the left ethmoid sinus and right ethmoid and sphenoid sinuses showed diffuse large B-cell lymphoma, CD20 positive, CD10 negative, BCL- 6and BCL-2 positive with a Ki-67 of 80%. FISH studies are pending for c-MYC. He had a referral to Medical Oncology, but then presented to the hospital yesterday with worsening nasal congestion, shortness of breath, and epistaxis. was very concerned that he was spitting up blood and then vomited blood several times. Bleeding did seem to get worse after the biopsy. PAST MEDICAL HISTORY: 1. COPD. Fairly severe and followed by Dr. Torres. PFTs done in February of 2018 showed an FVC of 42%, FEV1 12%, and DLCO of 4%, total lung capacity 121%. 2. 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 3. GERD. 4. Aortic root dilation just under 5 cm. PAST SURGICAL HISTORY: Appendectomy with burst appendicitis. MEDICATIONS: On admission: 1. Baclofen 5 mg p.o. b.i.d. 2. Saline nasal spray in each naris q.6 hours p.r.n. 3. Albuterol 1 puff every 6 hours. 4. Tylenol 650 p.r.n. 5. Oxycodone 5 mg b.i.d. p.r.n. 6. Norvasc 10 mg daily. 7. Ranitidine 150 mg b.i.d. 8. Omeprazole 40 mg daily. 9. Nortriptyline 10 mg at bedtime. 10. Gabapentin 300 mg at bedtime. 11. Fioricet 1 tab b.i.d. p.r.n. ALLERGIES: BUDESONIDE, CEFUROXIME, WARFARIN, AMOXICILLIN, AZITHROMYCIN, AUGMENTIN, LEVOFLOXACIN, and DEMEROL. FAMILY HISTORY: Extensive cancer history. Sister had lung cancer, mother had a brain tumor, brother had cancer of the lymph nodes but we do not know the details, and another sister had colon cancer, and an additional brother who of colon cancer at 22 years old. 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 and is with him in clinic. Together they have 5 children and lots and lots of grandchildren. He was a smoker, but quit in August 2017, and he does not drink alcohol. Has been independent through his illness. REVIEW OF SYSTEMS: As described in HPI, otherwise 14-point review is negative. PHYSICAL EXAM: Vital Signs: Temperature 98.0, BP 140/73, heart rate 98, respirations 18. HEENT: Some swelling in the right eye, but otherwise face is sunken. His oral mucosa is dry, but no visible lesions. Hard to visualize the CT findings on physical exam. Neck: No cervical or supraclavicular lymphadenopathy. Lungs: Decreased breath sounds bilaterally. He is not wheezing. He does not have crackles at the moment. He has mild respiratory distress when talking. Cardiac: S1, S2, regular. Heart rate in the high 70s. No murmurs or gallops that I could hear. Abdomen: He is mildly obese. He has midline incision from prior appendectomy and no hepatosplenomegaly. Nodes: No axillary or inguinal lymphadenopathy. Skin: No findings. Extremities: Warm to the touch. Trace edema bilaterally. Neurologic: Alert and oriented and grossly intact. DIAGNOSTIC STUDIES/LAB DATA: CT scan is as described above, personally reviewed. CBC shows a persistent leukocytosis, going back to April with a white count today of 18,000 and the left shift, hemoglobin 13.5, MCV is 92, platelets are 454, and lymphocyte count is 900. Chemistry showed creatinine of 0.58, sodium now of 151, chloride of 114. He has got an elevated bicarb of 33, BUN of 2. LFTs were done on 05/22/18 that show albumin of 3.4, globulin of 3.5, mildly elevated alk phos of 112, otherwise normal LFTs. Other imaging includes chest, abdomen, and pelvis CT on 04/28/18 that showed emphysema, small low-density lesions in the liver likely representing cysts and nodular hyperplasia of the adrenal glands. Last brain imaging was in December. ASSESSMENT AND PLAN: A 68-year-old male DLBCL of the sphenoid sinus. Tumor doris arose in setting of chronic sinusitis but with rapid local progression over past several months. He has had CT scan of sinuses, C/A/P and at this time he has stage I disease. Tumor is positive for BCL- 2 and 6, c-MYC is pending. Course complicated by sever COPD made worse by post nasal drip and sinus congestion. Currently, admitted for epistaxis and shortness of breath. We discussed that treatment will be chemotherapy, likely R-CHOP and possible XRT. Given severity of pulmonary disease 3 cycle of chemotherapy and radiation may be preferable to 6 cycles of chemotherapy if he has true stage I disease. 1. We will need to complete his staging evaluation. Plan on a bone marrow biopsy tomorrow morning while he is in the hospital. Will check an LDH. A PET scan will be ideal but contingent on him being stable enough to have out patient scan before starting therapy. 2. At this time he has 2 risk factors for CUSTOM MILLER disease, will hold on lumbar puncture unless LDH is increased. Will be indicated if he has high LDH, other areas of extranodal disease (positive bone marrow), is c-MYC positive. 3. Extensive discussion about the treatment for diffuse large B-cell lymphoma. We discussed the potential risk of chemotherapy given his chronic obstructive pulmonary disease and other chronic medical problems as well as his recent weight loss and debilitation. We have no option but to treat his lymphoma and I am hopeful that soon after starting treatment, he will have significant symptomatic improvement. Likely therapy would be R-CHOP, if he has c-MYC positive disease, we would need to consider more aggressive chemotherapy. 4. Transthoracic echocardiogram was done in January 2018 with an ejection fraction of 65% and there was not major valvular disease. 5. Check Hep B 5. I emphasized that one of the first steps in starting his cancer therapy is going to be improve his acute issues and get him home from the hospital. Chemotherapy is generally done on an outpatient basis and I would prefer to treat him once discharged from the hospital. Will discuss the case in the morning with the hospitalist. [id number]/CPS #: [id number] ROGER
[2018-05-25] MEDS: oxyCODONE TAB* 5 MG TAB PO PRN ×3 (02:11→11:09)
[2018-05-25] MEDS: ALPRAZolam TAB* 0.25 MG PO PRN ×2 (02:11→11:09)
[2018-05-25] MEDS: Heparin VIAL(*) 5000 UNITS/ML VIAL (FIVE THOUSAND) SUBCUT SCH ×3 (05:11→21:55)
[2018-05-25] MEDS: Saline NASAL SPRAY 0.65%* BTL BOTH NARES SCH ×2 (05:11→14:05)
[2018-05-25 07:00] LABS: EGFR Non-African American 125.9 (>60)
[2018-05-25] MEDS: amLODIPine TAB* 5 MG PO SCH (07:59)
[2018-05-25] MEDS: oxyCODONE SR TAB(*) 15 MG TAB.SR PO SCH ×2 (08:02→21:52)
[2018-05-25] MEDS: Omeprazole CAP* 20 MG PO SCH (08:03)
[2018-05-25] MEDS: Acetaminophen TAB* 325 MG PO SCH ×2 (08:03→14:22)
[2018-05-25] MEDS: Famotidine TAB* 20 MG PO SCH ×2 (08:04→19:49)
[2018-05-25] MEDS: Docusate CAP* 100 MG PO SCH ×2 (08:04→21:52)
[2018-05-25] MEDS ORDERED: Lidocaine 2.5%/Prilocain 2.5%* 5 GM TUBE ONE (10:57)
--- NOTE | 2018-05-25 11:01 | PN ---
Subjective Date of Service: 05/25/18 Interval History: Patient seen and examined at bedside. Denies fever, chills, chest discomfort, N/ V/D. Pt has been intermittently complaining of shortness of breath, but states that his breathing is at baseline. He is also very anxious about his diagnosis. He is awaiting a bone marrow bx this AM, we discussed going home. He also continues to complain of a headache, we discussed that the tumor is likely causing the headache and we can treat the pain, but may not be able to get rid of the headache until the tumor shrinks. He is slightly drowsy today, but alert and oriented. Family History: Unchanged from Admission Social History: Unchanged from Admission Past Medical History: Unchanged from Admission Objective Active Medications: Acetaminophen (Tylenol Tab*) 975 mg PO Q8H TERRANCE Albuterol (Ventolin Hfa Inhaler*) 1 puff INH Q6H PRN Reason: SHORTNESS OF BREATH Alprazolam (Xanax Tab*) 0.25 mg PO Q8H PRN Reason: ANXIETY Amlodipine Besylate (Norvasc Tab*) 10 mg PO DAILY TERRANCE Baclofen (Lioresal Tab*) 5 mg PO BID PRN Reason: SPASMS Docusate Sodium (Colace Cap*) 200 mg PO BID TERRANCE Famotidine (Pepcid Tab*) 20 mg PO BID TERRANCE; Protocol Gabapentin (Neurontin Cap(*)) 300 mg PO QPM TERRANCE Heparin Sodium (Porcine) (Heparin Vial(*)) 5,000 units SUBCUT Q8HR TERRANCE Dextrose/Sodium Chloride (D5w 1/2 Ns 1000 Ml Bag*) 1,000 mls @ 75 mls/hr IV PER RATE TERRANCE Nortriptyline HCl (Pamelor Cap*) 10 mg PO BEDTIME TERRANCE Omeprazole (Prilosec Cap*) 40 mg PO DAILY@0730 TERRANCE Ondansetron HCl (Zofran Inj*) 4 mg IV Q6H PRN Reason: NAUSEA Oxycodone HCl (Oxycontin(*)) 30 mg PO Q12HR TERRANCE Oxycodone HCl (Roxycodone Tab*) 5 mg PO Q4H PRN Reason: PAIN - BREAKTHROUGH Sodium Chloride (Sodium Chloride 0.65% Nasal [place]*) 2 spray BOTH NARES Q6H TERRANCE Zolpidem Tartrate (Ambien Tab*) 5 mg PO BEDTIME PRN Reason: INSOMNIA Vital Signs - 8 hr 05/25/18 05/25/18 05/25/18 03:27 05:03 06:11 Temperature 97.7 F Pulse Rate 106 Respiratory 18 18 20 Rate Blood Pressure 116/61 (mmHg) O2 Sat by Pulse 99 Oximetry 05/25/18 05/25/18 05/25/18 07:33 08:00 08:02 Temperature 98.4 F Pulse Rate 116 Respiratory 24 24 24 Rate Blood Pressure 139/60 (mmHg) O2 Sat by Pulse 92 Oximetry Oxygen Devices in Use Now: Nasal Cannula - 3L Appearance: NAD, sitting up in bed Ears/Nose/Mouth/Throat: Mucous Membranes Moist Respiratory: Symmetrical Chest Expansion and Respiratory Effort, Clear to Auscultation Cardiovascular: NL Sounds; No Murmurs; No JVD, RRR Abdominal: NL Sounds; No Tenderness; No Distention Extremities: No Edema Skin: No Rash or Ulcers Neurological: Alert and Oriented x 3, NL Muscle Strength and Tone Nutrition: Taking PO's Result Diagrams: 05/23/18 06:20 05/25/18 06:17 Microbiology and Other Data: Microbiology 05/22/18 20:22 Urine Culture - Final Urine No Growth (<1,000 CFU/mL) Assess/Plan/Problems-Billing Assessment: Mr. Chopra is a 68 yo male with PMH significant for COPD, benign pontine lesion , dilated aortic root, chronic hypercarbic respiratory failure, and GERD who presented to the ED with multiple complaints including anxiety, insomnia, nausea and vomiting. - Patient Problems (1) Nausea & vomiting Code(s): R11.2 - NAUSEA WITH VOMITING, UNSPECIFIED SNOMED Code(s): 91330074 Comment: - Resolved - Unclear etiology, suspect multifactoral (nasal bleeding and anxiety) - Continue Regular, anti-emetics and supportive care (2) Anxiety Code(s): F41.9 - ANXIETY DISORDER, UNSPECIFIED SNOMED Code(s): 25799016 Comment: - Continue alprazolam PRN and supportive care (3) Insomnia Code(s): G47.00 - INSOMNIA, UNSPECIFIED SNOMED Code(s): 624387706 Comment: - Continue zolpidem PRN (4) Leukocytosis Code(s): D72.829 - ELEVATED WHITE BLOOD CELL COUNT, UNSPECIFIED SNOMED Code(s) : 289380417 Comment: - Improved with IV hydration - No signs of infection, chest xray with no acute findings and UA negative - Suspect secondary to lymphoma - Continue to monitor (5) Hypernatremia Code(s): E87.0 - HYPEROSMOLALITY AND HYPERNATREMIA SNOMED Code(s): 00825939 Comment: - ? secondary to IVF - Will stop IVF and recheck in the AM (6) Hypokalemia Code(s): E87.6 - HYPOKALEMIA SNOMED Code(s): 74508308 Comment: - Resolved (7) Nasal mass Code(s): J34.9 - UNSPECIFIED DISORDER OF NOSE AND NASAL SINUSES SNOMED Code(s) : 794271000 Comment: - Bx 05/19/18 shows B cell lymphoma - Oncology consult, input appreciated - Bone marrow bx, pending - Will need outpatient PET scan - Continue pain management (8) Chronic hypercapnic respiratory failure Comment: - With chronic hypoxic respiratory failure, now with acute on chronic - No acute isssue at this time - Cautious use of supplemental O2 (9) HTN (hypertension) Code(s): I10 - ESSENTIAL (PRIMARY) HYPERTENSION SNOMED Code(s): 05044443 Comment: - SBP 110-140's - Continue norvasc (10) COPD (chronic obstructive pulmonary disease) Code(s): J44.9 - CHRONIC OBSTRUCTIVE PULMONARY DISEASE, UNSPECIFIED SNOMED Code(s): 93742927 Comment: - No signs of acute exacerbation at this time - Continue albuterol (11) GERD (gastroesophageal reflux disease) Code(s): K21.9 - GASTRO-ESOPHAGEAL REFLUX DISEASE WITHOUT ESOPHAGITIS SNOMED Code(s): 503795302 Comment: - Continue ranitidine and omeprazole (12) Pontine lesion Code(s): G93.9 - DISORDER OF BRAIN, UNSPECIFIED SNOMED Code(s): 227198957 Comment: - Benign - No acute issue at this time (13) Aortic root aneurysm Code(s): I71.9 - AORTIC ANEURYSM OF UNSPECIFIED SITE, WITHOUT RUPTURE SNOMED Code(s): 769169159 Comment: - 4.7 cm - No acute issue at this time (14) DVT prophylaxis Code(s): [id number] - SNOMED Code(s): 471481588 Comment: - SQ heparin and SCDs (15) Full code status Code(s): Z78.9 - OTHER SPECIFIED HEALTH STATUS SNOMED Code(s): 804957446 Status and Disposition: Inpatient. Discharge to home when medically stable, possibly in the AM.
[2018-05-25] MEDS ORDERED: Ondansetron ODT TAB* 4 MG SL PRN (12:15)
--- NOTE | 2018-05-25 18:23 | PROCNOTE ---
Hematology/Oncology Procedure Hematology/Oncology Procedure Note: Bone Marrow Aspiration and Biopsy: Informed consent obtained. Time out completed. L PSIS identified, prepped and draped in a sterile manner. Local anesthesia with 2% lidocaine. Bone marrow aspiration and core biopsy successfully completed. Core sample required 2 attempts. Local hemostasis achieved with pressure application. Patient tolerated procedure well.
[2018-05-25] MEDS: Gabapentin CAP(*) 300 MG PO SCH (19:48)
[2018-05-25] MEDS: Nortriptyline CAP* 10 MG PO SCH (21:51)
[2018-05-26] MEDS: Saline NASAL SPRAY 0.65%* BTL BOTH NARES SCH ×5 (04:33→17:20)
[2018-05-26] MEDS: Acetaminophen TAB* 325 MG PO SCH ×3 (04:34→17:22)
[2018-05-26] MEDS: Heparin VIAL(*) 5000 UNITS/ML VIAL (FIVE THOUSAND) SUBCUT SCH ×2 (07:15→13:38)
[2018-05-26 07:58] LABS: Hematocrit 39 % (42-52); Hemoglobin 12.9 g/dl (14.0-18.0); Mean Corpuscular HGB Conc 33 g/dl (31-36); Mean Corpuscular Hemoglobin 31 pg (27-31); Mean Corpuscular Volume 95 fL (80-94); Mean Platelet Volume 7.2 um3 (7.4-10.4); Platelet Count 422 10^3/ul (150-450); Red Blood Count 4.15 10^6/ul (4.00-5.40); Red Cell Distribution Width 16 % (10.5-15); White Blood Count 20.3 10^3/ul (3.5-10.8)
[2018-05-26 08:06] LABS: EGFR Non-African American 107.9 (>60)
[2018-05-26 08:43] LABS: ABS Basophils 0.1 10^3/ul (0-0.2); ABS Eosinophils 0.3 10^3/ul (0-0.6); ABS Monocytes 1.7 10^3/ul (0-0.8); ABS Neutrophils 17.3 10^3/ul (1.5-7.7); ABS Nucleated RBC 0 10^3/ul; Eosinophil % 1.3 % (0-6); Lymphocyte % 4.7 % (25-47); Nucleated Red Blood Cells % 0
[2018-05-26] MEDS ORDERED: NS 0.45% 1000 ML BAG* 1,000 ML IV SCH (09:00)
[2018-05-26] MEDS: oxyCODONE SR TAB(*) 15 MG TAB.SR PO SCH ×2 (09:16→21:26)
[2018-05-26] MEDS: Omeprazole CAP* 20 MG PO SCH (09:17)
[2018-05-26] MEDS: Famotidine TAB* 20 MG PO SCH ×2 (09:17→21:28)
[2018-05-26] MEDS: Docusate CAP* 100 MG PO SCH ×2 (09:17→21:33)
[2018-05-26] MEDS: amLODIPine TAB* 5 MG PO SCH (09:17)
[2018-05-26] MEDS ORDERED: Polyethylene Glycol 3350* 17 GM PACKET PO PRN (09:53)
[2018-05-26] MEDS: guaiFENesin ER TAB 600 MG PO SCH ×2 (10:17→21:43)
[2018-05-26] MEDS ORDERED: Gadoteridol* (CONTRAST) 279.3 MG/ML 10 ML IV ONE (10:43)
--- NOTE | 2018-05-26 11:09 | PN ---
Progress Note - Progress Note Date of Service: 05/26/18 SOAP: Subjective: [Still having complaints of severe HUERTA, currently rated at a 8/10. Sedated from pain medications. Bone marrow biopsy site mildly sore from yesterday. Developed a cough overnight, no worsening SOB. Noted increasing Na with significant negative fluid balance.] Objective: [ Laboratory Results - last 24 hr 05/26/18 05/26/18 07:15 07:15 WBC 20.3 H RBC 4.15 Hgb 12.9 L Hct 39 L MCV 95 H MCH 31 MCHC 33 RDW 16 H Plt Count 422 MPV 7.2 L Neut % (Auto) 85.4 H Lymph % (Auto) 4.[address] [place] % (Auto) 8.2 H Eos % (Auto) 1.3 Baso % (Auto) 0.4 Absolute Neuts (auto) 17.3 H Absolute Lymphs (auto) 1.0 Absolute Monos (auto) 1.7 H Absolute Eos (auto) 0.3 Absolute Basos (auto) 0.1 Absolute Nucleated RBC 0 Nucleated RBC % 0 Sodium 157 H* Potassium 3.6 Chloride 116 H Carbon Dioxide 35 H Anion Gap 6 BUN 4 L Creatinine 0.72 Est GFR ( Amer) 130.6 Est GFR (Non-Af Amer) 107.9 BUN/Creatinine Ratio 5.6 L Glucose 130 H Calcium 9.2 Acetaminophen (Tylenol Tab*) 975 mg PO Q8H [facility] Last Admin: 05/26/18 09:17 Dose: 975 mg Albuterol (Ventolin Hfa Inhaler*) 1 puff INH Q6H PRN PRN Reason: SHORTNESS OF BREATH Last Admin: 05/24/18 23:52 Dose: 1 puff Albuterol/Ipratropium (Duoneb (Albuterol 2.5 Mg/Ipratropium 0.5 Mg)) 1 neb INH Q4H PRN PRN Reason: SOB/WHEEZING Alprazolam (Xanax Tab*) 0.25 mg PO Q8H PRN PRN Reason: ANXIETY Last Admin: 05/25/18 11:09 Dose: 0.25 mg Amlodipine Besylate (Norvasc Tab*) 10 mg PO DAILY [facility] Last Admin: 05/26/18 09:17 Dose: 10 mg Baclofen (Lioresal Tab*) 5 mg PO BID PRN PRN Reason: SPASMS Docusate Sodium (Colace Cap*) 200 mg PO BID [facility] Last Admin: 05/26/18 09:17 Dose: 200 mg Famotidine (Pepcid Tab*) 20 mg PO BID [facility]; Protocol Last Admin: 05/26/18 09:17 Dose: 20 mg Gabapentin (Neurontin Cap(*)) 300 mg PO QPM [facility] Last Admin: 05/25/18 19:48 Dose: 300 mg Guaifenesin (Mucinex*) 1,200 mg PO BID [facility] Last Admin: 05/26/18 10:17 Dose: 1,200 mg Heparin Sodium (Porcine) (Heparin Vial(*)) 5,000 units SUBCUT Q8HR [facility] Last Admin: 05/26/18 07:15 Dose: 5,000 units Sodium Chloride (Ns 0.45% 1000 Ml Bag*) 1,000 mls @ 100 mls/hr IV PER RATE [facility] Last Admin: 05/26/18 09:15 Dose: 100 mls/hr Nortriptyline HCl (Pamelor Cap*) 10 mg PO BEDTIME [facility] Last Admin: 05/25/18 21:51 Dose: 10 mg Omeprazole (Prilosec Cap*) 40 mg PO DAILY@0730 [facility] Last Admin: 05/26/18 09:17 Dose: 40 mg Ondansetron HCl (Zofran Inj*) 4 mg IV Q6H PRN PRN Reason: NAUSEA Last Admin: 05/23/18 10:24 Dose: 4 mg Ondansetron HCl (Zofran Odt Tab*) 4 mg SL Q6H PRN PRN Reason: NAUSEA/VOMITING Oxycodone HCl (Oxycontin(*)) 30 mg PO Q12HR [facility] Last Admin: 05/26/18 09:16 Dose: 30 mg Oxycodone HCl (Roxycodone Tab*) 5 mg PO Q4H PRN PRN Reason: PAIN - BREAKTHROUGH Last Admin: 05/25/18 11:09 Dose: 5 mg Polyethylene Glycol/Electrolytes (Miralax*) 17 gm PO DAILY PRN PRN Reason: CONSTIPATION Last Admin: 05/26/18 10:18 Dose: 17 gm Senna (Senokot Tab*) 1 tab PO BEDTIME PRN PRN Reason: CONSTIPATION Sodium Chloride (Sodium Chloride 0.65% Nasal [place]*) 2 spray BOTH NARES Q6H [facility] Last Admin: 05/26/18 07:15 Dose: 2 spray Zolpidem Tartrate (Ambien Tab*) 5 mg PO BEDTIME PRN PRN Reason: INSOMNIA Vital Signs: Temp Pulse Resp BP Pulse Ox 98.7 F 115 16 135/74 100 05/26/18 07:24 05/26/18 07:24 05/26/18 09:16 05/26/18 07:24 05/26/18 07:24 Exam: Gen: Ill appearing 68 yo male sitting up in a recliner HEENT: MMM, no thrush CV: RRR, no m/r/g Resp: CTA, no w/c/r but reduced breath sounds diffusely Abd: soft, nonTTP Ext: no edema Psych: sedated appearing, orientation appropriate when he is able to maintain concentration] Assessment: [68 yo male with severe COPD and new diagnosis of DLBCL of the sphenoid sinus, full staging pending. Complaining of persistent, severe HUERTA with new development of hypernatremia with negative fluid balance despite adequate intake and no diuretics.] Plan: [1. DLBCL - full staging pending - bone marrow bx completed yesterday, results pending - need PET, prior auth process started through oncology clinic for outpatient study - MRI of the brain due to possible DI with persistent, severe HUERTA - may need LP depending on results - requested surgery consult for port placement - goal to get treatment started as soon as possible 2. Hypernatremia - concerning for DI - urine studies pending - management per Hospitalist - MRI brain with and without contrast to eval for central process 3. COPD, severe with chronic resp failure Dispo: hopeful that he will be able to d/c home soon for KRISH PET and start of tx (likely R-CHOP +/- RT)]
--- NOTE | 2018-05-26 13:22 | RAD ---
Indication: Diabetes insipidus. History of lymphoma involving the sphenoid bone. Comparison: December 29, 2017 noncontrast MRI. Technique: Art of Clicka 1.5 Vidya [id number] with GEM suite. MRI brain without and with contrast. 12 mL ProHance administered IV. Report: Motion artifact degrades image quality. Extensive lobular margin precontrast isointense (to brain parenchyma) diffusely enhancing tumor involving the clivus, planum sphenoidale, and mucosal margins of the sphenoid sinus with contiguous involvement of the pituitary fossa and thickened pituitary stalk with a 0.7 cm diameter spherical enhancing mass extending to the hypothalamus and optic chiasm. Patent cerebellar pontine angles and quadrigeminal plate cistern. Unremarkable ventricles. Unremarkable cerebral sulci. Diffusion series is negative for acute or subacute ischemia. Susceptibility series is negative for stigmata of hemosiderin deposition to indicate previous hemorrhage. No supratentorial intra-axial or extra-axial mass lesions evident. Normal variant mildly prominent perivascular spaces at the basal ganglia. Preserved major intracranial flow-voids. Unremarkable orbital contents. Small fluid levels at the maxillary sinuses. Grossly clear mastoid air spaces. IMPRESSION: #. Significant interval worsening of disease compared with the December 29, 2017 MRI with extensive lobular margin diffusely enhancing tumor involving the clivus, planum sphenoidale, and mucosal margins of the sphenoid sinus with contiguous involvement of the pituitary fossa and thickened pituitary stalk with a 0.7 cm diameter spherical enhancing mass extending to the hypothalamus and optic chiasm. #. The findings would account for clinical presentation of diabetes insipidus. #. Results discussed with Dr. Smart 05/26/2018 1:18 PM EDT
[2018-05-26 13:45] LABS: EGFR Non-African American 115.3 (>60)
--- NOTE | 2018-05-26 14:05 | RAD ---
INDICATION: Increased cough and shortness of breath. COPD; oxygen dependent. Lymphoma at the sphenoid bone. Diabetes insipidus. COMPARISON: May 22, 2018 TECHNIQUE: Dual energy PA and routine lateral views of the chest were obtained. REPORT: Elevated lung volumes and both diffuse mild prominence of the interstitial markings and patchy rarefaction of the mid to upper lung zone interstitial markings. No focal pulmonary lesion, compelling alveolar consolidation, pleural effusion, pneumothorax. The heart, pulmonary vasculature, and mediastinal contours are unremarkable. Polyarticular degenerative arthropathy. Negative for suspicious focal osseous lesions. IMPRESSION: #. Stigmata of obstructive lung disease. No acute pulmonary or cardiac process evident.
--- NOTE | 2018-05-26 16:46 | PN ---
Subjective Date of Service: 05/26/18 Interval History: Patient today complains of increasing cough, wheezing and SOB. Denies productive cough, hemoptysis, F/C. States he feels constipated. Has been having several years of excessive thirst and inability to maintain hydration status. Denies CP, N/V, or other pain. Family History: Unchanged from Admission Social History: Unchanged from Admission Past Medical History: Unchanged from Admission Objective Active Medications: Acetaminophen (Tylenol Tab*) 975 mg PO Q8H [facility] Last Admin: 05/26/18 09:17 Dose: 975 mg Albuterol (Ventolin Hfa Inhaler*) 1 puff INH Q6H PRN PRN Reason: SHORTNESS OF BREATH Last Admin: 05/24/18 23:52 Dose: 1 puff Albuterol/Ipratropium (Duoneb (Albuterol 2.5 Mg/Ipratropium 0.5 Mg)) 1 neb INH Q4H PRN PRN Reason: SOB/WHEEZING Alprazolam (Xanax Tab*) 0.25 mg PO Q8H PRN PRN Reason: ANXIETY Last Admin: 05/25/18 11:09 Dose: 0.25 mg Amlodipine Besylate (Norvasc Tab*) 10 mg PO DAILY [facility] Last Admin: 05/26/18 09:17 Dose: 10 mg Baclofen (Lioresal Tab*) 5 mg PO BID PRN PRN Reason: SPASMS Docusate Sodium (Colace Cap*) 200 mg PO BID [facility] Last Admin: 05/26/18 09:17 Dose: 200 mg Famotidine (Pepcid Tab*) 20 mg PO BID [facility]; Protocol Last Admin: 05/26/18 09:17 Dose: 20 mg Gabapentin (Neurontin Cap(*)) 300 mg PO QPM [facility] Last Admin: 05/25/18 19:48 Dose: 300 mg Guaifenesin (Mucinex*) 1,200 mg PO BID [facility] Last Admin: 05/26/18 10:17 Dose: 1,200 mg Heparin Sodium (Porcine) (Heparin Vial(*)) 5,000 units SUBCUT Q8HR [facility] Last Admin: 05/26/18 13:38 Dose: 5,000 units Sodium Chloride (Ns 0.45% 1000 Ml Bag*) 1,000 mls @ 100 mls/hr IV PER RATE [facility] Last Admin: 05/26/18 09:15 Dose: 100 mls/hr Clindamycin HCl/Dextrose (Cleocin 900 Mg Ivpremix (*) Sdv) 900 mg in 50 mls @ 100 mls/hr IV ONCE ONE Stop: 05/27/18 13:29 Nortriptyline HCl (Pamelor Cap*) 10 mg PO BEDTIME [facility] Last Admin: 05/25/18 21:51 Dose: 10 mg Omeprazole (Prilosec Cap*) 40 mg PO DAILY@0730 [facility] Last Admin: 05/26/18 09:17 Dose: 40 mg Ondansetron HCl (Zofran Inj*) 4 mg IV Q6H PRN PRN Reason: NAUSEA Last Admin: 05/23/18 10:24 Dose: 4 mg Ondansetron HCl (Zofran Odt Tab*) 4 mg SL Q6H PRN PRN Reason: NAUSEA/VOMITING Oxycodone HCl (Oxycontin(*)) 30 mg PO Q12HR [facility] Last Admin: 05/26/18 09:16 Dose: 30 mg Oxycodone HCl (Roxycodone Tab*) 5 mg PO Q4H PRN PRN Reason: PAIN - BREAKTHROUGH Last Admin: 05/25/18 11:09 Dose: 5 mg Polyethylene Glycol/Electrolytes (Miralax*) 17 gm PO DAILY PRN PRN Reason: CONSTIPATION Last Admin: 05/26/18 10:18 Dose: 17 gm Senna (Senokot Tab*) 1 tab PO BEDTIME PRN PRN Reason: CONSTIPATION Sodium Chloride (Sodium Chloride 0.65% Nasal [place]*) 2 spray BOTH NARES Q6H [facility] Last Admin: 05/26/18 13:38 Dose: 2 spray Zolpidem Tartrate (Ambien Tab*) 5 mg PO BEDTIME PRN PRN Reason: INSOMNIA Vital Signs - 8 hr 05/26/18 09:16 Respiratory 16 Rate Oxygen Devices in Use Now: Nasal Cannula Appearance: Patient is a 68yo male who appears stated age and is sitting in the bed in NAD. Eyes: No Scleral Icterus, PERRLA Ears/Nose/Mouth/Throat: NL Teeth, Lips, Gums, Clear Oropharnyx, Mucous Membranes Moist Neck: NL Appearance and Movements; NL JVP, Trachea Midline Respiratory: Symmetrical Chest Expansion and Respiratory Effort, - - Severely diminished throughout. Cardiovascular: NL Sounds; No Murmurs; No JVD, No Edema, - - Tachycardic Abdominal: NL Sounds; No Tenderness; No Distention, No Hepatosplenomegaly Lymphatic: No Cervical Adenopathy Extremities: No Edema, No Clubbing, Cyanosis Skin: No Rash or Ulcers, No Nodules or Sclerosis Neurological: Alert and Oriented x 3, NL Sensation, NL Muscle Strength and Tone , - - CN II-XII intact. Result Diagrams: 05/26/18 07:15 05/26/18 13:20 Microbiology and Other Data: Microbiology 05/22/18 20:22 Urine Culture - Final Urine No Growth (<1,000 CFU/mL) Assess/Plan/Problems-Billing Assessment: Mr. Chopra is a 68 yo male with PMH significant for COPD, benign pontine lesion , dilated aortic root, chronic hypercarbic respiratory failure, and GERD who presented to the ED with multiple complaints including anxiety, insomnia, nausea and vomiting and is being treated for B-cell lymphoma and diabetes insipidus. - Patient Problems (1) Nasal mass Current Visit: Yes Status: Acute Code(s): J34.9 - UNSPECIFIED DISORDER OF NOSE AND NASAL SINUSES SNOMED Code(s): 387254313 Comment: Bx 05/19/18 shows B cell lymphoma Oncology consult, input appreciated Bone marrow bx, pending Will need outpatient PET scan Continue pain management Possibly impinging on hypothalamus. (2) Hypernatremia Current Visit: Yes Status: Acute Code(s): E87.0 - HYPEROSMOLALITY AND HYPERNATREMIA SNOMED Code(s): 32273028 Comment: Likely secondary to DI, patient has a long history of excessive thrist and urine output. Continue 1/2NS. Start Desmopressin in AM after fluids D/C'd. Low levels of other hormones produced in pituitary. (3) Anxiety Current Visit: Yes Status: Acute Code(s): F41.9 - ANXIETY DISORDER, UNSPECIFIED SNOMED Code(s): 14153284 Comment: Continue Pamelor, alprazolam PRN and supportive care (4) Hypokalemia Current Visit: Yes Status: Acute Code(s): E87.6 - HYPOKALEMIA SNOMED Code( s): 78190454 Comment: Resolved (5) Insomnia Current Visit: Yes Status: Acute Code(s): G47.00 - INSOMNIA, UNSPECIFIED SNOMED Code(s): 919273843 Comment: Continue zolpidem PRN (6) Leukocytosis Current Visit: Yes Status: Acute Code(s): D72.829 - ELEVATED WHITE BLOOD CELL COUNT, UNSPECIFIED SNOMED Code(s): 956739321 Comment: Stable, Likely secondary to lymphoma. (7) Chronic hypercapnic respiratory failure Current Visit: Yes Status: Chronic Comment: With chronic hypoxic respiratory failure No acute isssue at this time Cautious use of supplemental O2 (8) COPD (chronic obstructive pulmonary disease) Current Visit: No Status: Chronic Code(s): J44.9 - CHRONIC OBSTRUCTIVE PULMONARY DISEASE, UNSPECIFIED SNOMED Code(s): 71466471 Comment: Slightly increased cough. 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 Discharge to home when medically stable, possibly in the AM.
[2018-05-26] MEDS: Gabapentin CAP(*) 300 MG PO SCH (17:21)
--- NOTE | 2018-05-26 18:36 | PN ---
Progress Note - Progress Note Date of Service: 05/26/18 Note: Surgery Progress: S: patient seen for brief consult in preparation for placement of a Powerport on 05/27/[address] Caro (tentatively around 1300 hr). Record reviewed including H&P, oncology consult and progress notes from today. Patient understands the indications for the port, though he is somewhat somnolent, drifting in and out during our interview. O: Vital Signs 05/25/18 05/25/18 05/25/18 18:58 19:38 19:48 Temperature 97.3 F 97.3 F Pulse Rate 106 Respiratory 28 20 Rate Blood Pressure 135/61 (mmHg) O2 Sat by Pulse 95 Oximetry 05/25/18 05/25/18 05/25/18 20:00 21:52 21:55 Temperature Pulse Rate Respiratory 20 20 20 Rate Blood Pressure (mmHg) O2 Sat by Pulse Oximetry 05/26/18 05/26/18 05/26/18 00:00 02:31 07:24 Temperature 98.1 F 98.3 F 98.7 F Pulse Rate 123 128 115 Respiratory 18 19 20 Rate Blood Pressure 151/72 151/70 135/74 (mmHg) O2 Sat by Pulse 100 100 100 Oximetry Bilateral upper chest wall clean and dry. No lesions or evidence of infection. Labs: Laboratory Tests 05/22/18 05/26/18 05/26/18 19:56 07:15 13:20 WBC 20.3 H Hgb 12.9 L Plt Count 422 INR (Anticoag Therapy) 1.18 H Sodium 152 H Serum Osmolality 05/26/18 13:20 WBC Hgb Plt Count INR (Anticoag Therapy) Sodium Serum Osmolality 313 H A/P: need for central venous access for chemotherapy; apparently to start desmopressin in a.m. for diabetes insipidus. Will make NPO after clear liq breakfast; preop abx (Clindamycin) ordered.
[2018-05-26] MEDS: oxyCODONE TAB* 5 MG TAB PO PRN (20:01)
[2018-05-26] MEDS: Nortriptyline CAP* 10 MG PO SCH (21:34)
[2018-05-26 22:24] LABS: EGFR Non-African American 123.6 (>60)
[2018-05-27] MEDS: Acetaminophen TAB* 325 MG PO SCH ×3 (00:55→16:07)
[2018-05-27] MEDS: Saline NASAL SPRAY 0.65%* BTL BOTH NARES SCH ×4 (00:55→18:12)
[2018-05-27 06:32] LABS: ABS Basophils 0.1 10^3/ul (0-0.2); ABS Eosinophils 0.3 10^3/ul (0-0.6); ABS Lymphocytes 1.2 10^3/ul (1.0-4.8); ABS Neutrophils 12.6 10^3/ul (1.5-7.7); ABS Nucleated RBC 0 10^3/ul; Hematocrit 35 % (42-52); Hemoglobin 11.7 g/dl (14.0-18.0); Mean Corpuscular HGB Conc 33 g/dl (31-36); Mean Corpuscular Hemoglobin 31 pg (27-31); Mean Corpuscular Volume 93 fL (80-94); Mean Platelet Volume 6.8 um3 (7.4-10.4); Nucleated Red Blood Cells % 0; Platelet Count 405 10^3/ul (150-450); Red Blood Count 3.76 10^6/ul (4.00-5.40); Red Cell Distribution Width 15 % (10.5-15); White Blood Count 15.2 10^3/ul (3.5-10.8)
[2018-05-27 06:39] LABS: INR 1.3 (0.77-1.02)
[2018-05-27 06:51] LABS: EGFR Non-African American 138.5 (>60)
[2018-05-27] MEDS: Ondansetron INJ* 2 MG/ML VIAL IV PRN (08:51)
[2018-05-27] MEDS: oxyCODONE SR TAB(*) 15 MG TAB.SR PO SCH ×2 (08:53→21:38)
[2018-05-27] MEDS: guaiFENesin ER TAB 600 MG PO SCH ×2 (08:54→21:38)
[2018-05-27] MEDS: Omeprazole CAP* 20 MG PO SCH (08:54)
[2018-05-27] MEDS: Docusate CAP* 100 MG PO SCH ×2 (08:55→21:39)
[2018-05-27] MEDS: amLODIPine TAB* 5 MG PO SCH (08:56)
[2018-05-27] MEDS: Famotidine TAB* 20 MG PO SCH ×2 (08:56→21:39)
[2018-05-27] MEDS ORDERED: CMC:Desmopressin TAB (NF) 0.1 MG TAB PO SCH (09:00)
[2018-05-27] MEDS: Desmopressin TAB (NF) 0.1 MG TAB PO SCH ×2 (09:04→21:39)
--- NOTE | 2018-05-27 10:33 | PN ---
Progress Note - Progress Note Date of Service: 05/27/18 SOAP: Subjective: []Feels tired this AM and HUERTA cont.'s. Breathing is stable with an occ. cough, though he denies feeling SOB. Last BM 4 days ago and feels constipated, passing gas. at bedside, involved in plan of care. Medications: Acetaminophen (Tylenol Tab*) 975 mg PO Q8H [facility] Last Admin: 05/27/18 08:54 Dose: 975 mg Albuterol (Ventolin Hfa Inhaler*) 1 puff INH Q6H PRN PRN Reason: SHORTNESS OF BREATH Last Admin: 05/24/18 23:52 Dose: 1 puff Albuterol/Ipratropium (Duoneb (Albuterol 2.5 Mg/Ipratropium 0.5 Mg)) 1 neb INH Q4H PRN PRN Reason: SOB/WHEEZING Alprazolam (Xanax Tab*) 0.25 mg PO Q8H PRN PRN Reason: ANXIETY Last Admin: 05/25/18 11:09 Dose: 0.25 mg Amlodipine Besylate (Norvasc Tab*) 10 mg PO DAILY [facility] Last Admin: 05/27/18 08:56 Dose: 10 mg Baclofen (Lioresal Tab*) 5 mg PO BID PRN PRN Reason: SPASMS Desmopressin Acetate (Desmopressin Tab (Nf)) 0.1 mg PO BID [facility] Last Admin: 05/27/18 09:04 Dose: 0.1 mg Docusate Sodium (Colace Cap*) 200 mg PO BID [facility] Last Admin: 05/27/18 08:55 Dose: 200 mg Famotidine (Pepcid Tab*) 20 mg PO BID [facility]; Protocol Last Admin: 05/27/18 08:56 Dose: 20 mg Gabapentin (Neurontin Cap(*)) 300 mg PO QPM [facility] Last Admin: 05/26/18 17:21 Dose: 300 mg Guaifenesin (Mucinex*) 1,200 mg PO BID [facility] Last Admin: 05/27/18 08:54 Dose: 1,200 mg Heparin Sodium (Porcine) (Heparin Vial(*)) 5,000 units SUBCUT Q8HR [facility] Clindamycin HCl/Dextrose (Cleocin 900 Mg Ivpremix (*) Sdv) 900 mg in 50 mls @ 100 mls/hr IV ONCE ONE Stop: 05/27/18 13:29 Levothyroxine Sodium (Synthroid Tab*) 50 mcg PO DAILY@0600 [facility] Nortriptyline HCl (Pamelor Cap*) 10 mg PO BEDTIME [facility] Last Admin: 05/26/18 21:34 Dose: 10 mg Omeprazole (Prilosec Cap*) 40 mg PO DAILY@0730 [facility] Last Admin: 05/27/18 08:54 Dose: 40 mg Ondansetron HCl (Zofran Inj*) 4 mg IV Q6H PRN PRN Reason: NAUSEA Last Admin: 05/27/18 08:51 Dose: 4 mg Ondansetron HCl (Zofran Odt Tab*) 4 mg SL Q6H PRN PRN Reason: NAUSEA/VOMITING Oxycodone HCl (Oxycontin(*)) 30 mg PO Q12HR [facility] Last Admin: 05/27/18 08:53 Dose: 30 mg Oxycodone HCl (Roxycodone Tab*) 5 mg PO Q4H PRN PRN Reason: PAIN - BREAKTHROUGH Last Admin: 05/26/18 20:01 Dose: 5 mg Polyethylene Glycol/Electrolytes (Miralax*) 17 gm PO QPM [facility] Senna (Senokot Tab*) 1 tab PO BEDTIME PRN PRN Reason: CONSTIPATION Sodium Chloride (Sodium Chloride 0.65% Nasal [place]*) 2 spray BOTH NARES Q6H [facility] Last Admin: 05/27/18 06:15 Dose: 2 spray Zolpidem Tartrate (Ambien Tab*) 5 mg PO BEDTIME PRN PRN Reason: INSOMNIA Objective: [] Vital Signs Temp Pulse Resp BP Pulse Ox 97.9 F 80 20 111/52 99 05/27/18 07:10 05/27/18 07:10 05/27/18 08:53 05/27/18 07:10 05/27/18 07:10 A&Ox3, though notably lethargic, FONG and good strength = bilat., EOMI, CN II- XII intact HRR, S1S2, distant heart sounds LS diminished bilat. without audible wheeze or rhonchi +BS, abd. soft with tenderness throughout, no rebound tenderness +PP=bilat., no edema noted Laboratory Results - last 24 hr 05/25/18 05/25/1818 06:17 12:00 07:15 WBC RBC Hgb Hct MCV MCH MCHC RDW Plt Count MPV Neut % (Auto) Lymph % (Auto) [place] % (Auto) Eos % (Auto) Baso % (Auto) Absolute Neuts (auto) Absolute Lymphs (auto) Absolute Monos (auto) Absolute Eos (auto) Absolute Basos (auto) Absolute Nucleated RBC Nucleated RBC % INR (Anticoag Therapy) APTT Sodium 157 H* Potassium 3.6 Chloride 116 H Carbon Dioxide 35 H Anion Gap 6 BUN 4 L Creatinine 0.72 Est GFR ( Amer) 130.6 Est GFR (Non-Af Amer) 107.9 BUN/Creatinine Ratio 5.6 L Glucose 130 H Serum Osmolality Calcium 9.2 Magnesium TSH Free T4 FSH Total Testosterone Cortisol 18.79 Urine Osmolality Ur Random Sodium Hep B Core Total Ab Negative Flow Intrp 2-8 Markers Flow Intrp 9-15 Marker TNP Flow Intrp 16+ Markers TNP 05/26/18 05/26/18 05/26/18 10:30 10:30 13:20 WBC RBC Hgb Hct MCV MCH MCHC RDW Plt Count MPV Neut % (Auto) Lymph % (Auto) [place] % (Auto) Eos % (Auto) Baso % (Auto) Absolute Neuts (auto) Absolute Lymphs (auto) Absolute Monos (auto) Absolute Eos (auto) Absolute Basos (auto) Absolute Nucleated RBC Nucleated RBC % INR (Anticoag Therapy) APTT Sodium 152 H Potassium 4.0 Chloride 112 H Carbon Dioxide 39 H Anion Gap 1 L BUN 5 L Creatinine 0.68 Est GFR ( Amer) 139.5 Est GFR (Non-Af Amer) 115.3 BUN/Creatinine Ratio 7.4 L Glucose 100 Serum Osmolality Calcium 8.9 Magnesium TSH 0.02 L Free T4 0.72 FSH 0.4 L Total Testosterone 22.71 L Cortisol Urine Osmolality 209 Ur Random Sodium 28 Hep B Core Total Ab Flow Intrp 2-8 Markers Flow Intrp 9-15 Marker Flow Intrp 16+ Markers 05/26/18 05/26/18 05/27/18 13:20 21:56 06:14 WBC RBC Hgb Hct MCV MCH MCHC RDW Plt Count MPV Neut % (Auto) Lymph % (Auto) [place] % (Auto) Eos % (Auto) Baso % (Auto) Absolute Neuts (auto) Absolute Lymphs (auto) Absolute Monos (auto) Absolute Eos (auto) Absolute Basos (auto) Absolute Nucleated RBC Nucleated RBC % INR (Anticoag Therapy) 1.30 H APTT 36.7 H Sodium 149 H Potassium 3.8 Chloride 109 Carbon Dioxide 32 Anion Gap 8 BUN 6 Creatinine 0.64 L Est GFR ( Amer) 149.6 Est GFR (Non-Af Amer) 123.6 BUN/Creatinine Ratio 9.4 Glucose 81 Serum Osmolality 313 H Calcium 8.8 Magnesium TSH Free T4 FSH Total Testosterone Cortisol Urine Osmolality Ur Random Sodium Hep B Core Total Ab Flow Intrp 2-8 Markers Flow Intrp 9-15 Marker Flow Intrp 16+ Markers 05/27/18 05/27/18 06:14 06:14 WBC 15.2 H RBC 3.76 L Hgb 11.7 L Hct 35 L MCV 93 MCH 31 MCHC 33 RDW 15 Plt Count 405 MPV 6.8 L Neut % (Auto) 83.1 H Lymph % (Auto) 8.0 L [place] % (Auto) 6.5 Eos % (Auto) 2.0 Baso % (Auto) 0.4 Absolute Neuts (auto) 12.6 H Absolute Lymphs (auto) 1.2 Absolute Monos (auto) 1.0 H Absolute Eos (auto) 0.3 Absolute Basos (auto) 0.1 Absolute Nucleated RBC 0 Nucleated RBC % 0 INR (Anticoag Therapy) APTT Sodium 148 H Potassium 3.6 Chloride 108 Carbon Dioxide 35 H Anion Gap 5 BUN 6 Creatinine 0.58 L Est GFR ( Amer) 167.6 Est GFR (Non-Af Amer) 138.5 BUN/Creatinine Ratio 10.3 Glucose 119 H Serum Osmolality Calcium 8.8 Magnesium 2.1 TSH Free T4 FSH Total Testosterone Cortisol 12.29 Urine Osmolality Ur Random Sodium Hep B Core Total Ab Flow Intrp 2-8 Markers Flow Intrp 9-15 Marker Flow Intrp 16+ Markers Assessment: []68 yo male with newly diagnosed DLBCL of the sphenoid sinus, unfortunately now with extension into the [employer] with subsequent Diabetes Insipidus. Full staging thus far with CT does not reveal any further distant disease, plan for LP today with port placement. Discussed diagnosis with family and current work- up for full staging as well as plan to initiate chemo next week. Plan: []1. DLBCL: - LP today to determine plan for IT Mtx., FISH on initial biopsy 05/19 pending - da-EPOCH C1D1 planned Thursday 05/31, Rituximab likely with C2 - already had echo with EF 65%, Hep. B negative, moderate to severe COPD with increase risk for pulmonary infection, will need neupogen - start dex. 40 mg IV daily x4 and Allopurinol 300 mg PO qday (TLS prophylaxis) - family and pt. appear overwhelmed (appropriately), primary oncologist Dr. Smart to see them tomorrow and I will ask social work to follow-up tomorrow as well 2. 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 Hassan 3. COPD: - stable, no change today 4. Constipation: - start miralax qPM tonight
[2018-05-27] MEDS: Allopurinol TAB* 300 MG PO SCH (11:27)
[2018-05-27] MEDS ORDERED: Clindamycin 900 MG IVPREMIX(* 900 MG/50 ML SDV IV ONE ×2 (11:49→13:00)
[2018-05-27] MEDS ORDERED: fentaNYL* 50 MCG/ML 2 ML VIAL (100 MCG VIAL) ONE (11:50)
[2018-05-27] MEDS ORDERED: Lidocaine 2% PF * 5 ML VIAL ONE ×2 (11:50→13:38)
[2018-05-27] MEDS ORDERED: Propofol* 10 MG/ML 20 ML BTL IV PUSH ONE (11:50)
[2018-05-27] MEDS ORDERED: KETAMINE HCL* 50 MG/ML 10 ML VIAL ONE (11:50)
[2018-05-27] MEDS ORDERED: Midazolam* 1 MG/ML 5 ML VIAL (5 MG) ONE (11:50)
[2018-05-27] MEDS ORDERED: Dexamethasone IV* 4 MG/ML 1 ML (4 MG) ONE (11:50)
[2018-05-27] MEDS ORDERED: Lidocaine 1% INJ* 10 MG/ML 30 ML SDV ONE (12:12)
--- NOTE | 2018-05-27 14:09 | CONS ---
CC: MISHA Garnica; MISHA Peterson; Dr. Janak Smart. 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 HISTORY OF PRESENT ILLNESS: Wojciech Chopra is a 68-year-old male. His presentation is documented in Dr. Clarence Wheatley's admitting history and physical and I have also reviewed the history with the patient and with the subsequent progress notes and Dr. Janak Smart's consultation. His endocrine issues appear to have started around 2016, at that time "I constantly had to go potty." He had nocturia 3 to 4 times at night and polyuria, polydipsia. This was new for him. At that time also, he lost his sense of energy and noted that he had decreased appetite and nausea. There is a history also of multiple episodes of sinusitis and subsequently he underwent a biopsy of the sphenoid sinus mass, which turned out to be a diffuse large B-cell lymphoma. During the hospital stay, he developed hyponatremia with a sodium of 157 and he also had an elevated serum osmolality of 313 and urine osmolality, which was low at 209. This has been corrected with IV and oral fluids. 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 He describes no change in his vision. He has had some severe headaches. He has had some problems of feeling too hot and too cold since around 2016. He notes no palpitations. PAST MEDICAL HISTORY AND SURGERIES: Appendectomy and sphenoid sinus biopsy, chronic comorbidities, COPD. He has no history of coronary artery disease or diabetes. 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 OUTPATIENT MEDICATIONS: 1. Saline nasal spray. 2. Baclofen 5 mg twice daily. 3. Albuterol HFA 1 puff q.6 hours. 4. Acetaminophen 650 mg q.6 hours as needed. 5. Oxycodone 5 mg twice daily by mouth. 6. Amlodipine 10 mg daily. 7. Ranitidine 150 mg twice daily. 8. Oxycodone 10/325 2 tablets 4 times a day as needed. 9. Omeprazole 40 mg daily. 10. Nortriptyline 10 mg q.h.s. 11. Gabapentin 300 mg q.h.s. 12. Fioricet 1 tablet b.i.d. as needed. ALLERGIES: BUDESONIDE, CEFUROXIME, SYMBICORT, WARFARIN, AMOXICILLIN, AZITHROMYCIN, CLAVULANIC ACID, LEVOFLOXACIN and MEPERIDINE. FAMILY HISTORY: His sister of complications of pituitary disease. No other family history of endocrinopathy, kidney stone disease, parathyroid disease, thyroid disease, or pancreatic disease. His younger brother of colon cancer. Father of myocardial infarction. Mother had a "bloody tumor" at the base of her brain. His paternal grandmother had type 2 diabetes. SOCIAL HISTORY: Quit smoking July 2017, does not drink alcohol. Occupational history, worked at the [employer]. 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 He states that he was exposed to chemicals and paper dust over a very long period of time. PHYSICAL EXAMINATION: Vital Signs: Temperature 97.9, pulse 80, respirations 16 , oxygen saturation 99%, blood pressure 115/52. He has an asterixis-like tremor. He has xanthelasma on his eyelid. He has no Homewood's syndrome. He does have central obesity. He has no evidence of hyperpigmentation, crease pigmentation, or buccal pigmentation. He has no jaundice, clubbing, or adenopathy. He is not anemic. Cardiovascular system: Pulse regular, normal character and volume. Venous pressure not elevated. [place] beat not displaced. Heart sounds normal. No added sounds or murmurs. No pedal edema. Respiratory system: Chest expansion was full and symmetrical. On percussion, had hyperresonant breath sounds, emphysematous. No crackles or wheezes. Sputum was creamy white with no blood. Abdomen is mildly distended, resonant to percussion. Bowel sounds were present. No masses or organomegaly. No splenomegaly. Endocrine: His thyroid gland was not palpable. He has no acromegaly. Visual garcia were full to confrontation. Fundi showed no papilledema or optic atrophy. Nervous system: Cranial nerves II through XII intact. Normal speech. Alert and oriented. Poor memory. Arms and legs are full power, normal tone and coordination. INVESTIGATION: Labs on 05/27/18, white count 15.2, hemoglobin 11.7, hematocrit 35, platelets 405, neutrophil percent 83.1. Chemistry today, sodium 148, potassium 13.6, chloride 108, bicarbonate 35, BUN 6, creatinine 0.58, glucose 119, calcium 8.8. On 05/26/18, TSH 0.02, free T4 0.72, FSH 0.4, total testosterone 22.71, cortisol 18.79. On 05/22/18, CRP 67. IMAGING DATA: Brain MRI on 05/26/18. I reviewed the pictures myself. He has an enhancing mass in his sphenoid sinus involving the clivus, planum sphenoidale , mucosal margins of the sphenoid sinus with contagious involvement of the pituitary fossa, thickened pituitary stalk. There is a separate 0.7 cm brightly enhancing spherical mass in the region of the hypothalamus and optic chiasm. Other imaging 05/22/18, CT scan of abdomen and pelvis, hepatic cyst in left lobe of liver, distended gallbladder. Gallbladder ultrasound, distended gallbladder with biliary sludge, no gallstones. Chest x-ray, no active cardiovascular disease. Sinus CT, opacification of ethmoid air sinuses extending anteriorly and progressively since previous exam, erosion of greater wing of sphenoid and inferior sphenoid extending to the nasopharynx. Bone marrow biopsy, hypocellular bone marrow. IMPRESSION: Wojciech Chopra is a 68-year-old male. He presented with a large mass in his sphenoid sinus which turns out to be a large B-cell lymphoma. He has evidence of involvement of his hypothalamus and pituitary; this is resulting problems in both his posterior pituitary and anterior pituitary function. He has evidence of diabetes insipidus, anterior pituitary evidence of both thyroid and gonadal failure. It looks like he may have adequate reserve in terms of his adrenal function; lactotroph and growth hormone function remained unclear. ASSESSMENT AND PLAN: 1. Large B-cell lymphoma - this is being managed by Oncology. 2. Diabetes insipidus - I will start him on DDAVP 0.1 mg twice daily and watch his electrolytes carefully to ensure that we do not induce iatrogenic diabetes insipidus. 3. 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 4. Hypogonadism - this is not something we need to treat at this point. 5. Growth hormone and lactotroph function - I will ascertain these. 6. Adrenal function - I want to once again confirm he has had adequate reserve by checking a simultaneous cortisol and ACTH. This patient is going to require long-term management of his hypothalamic and pituitary lesions. I have explained this to the patient, and will follow during his hospital stay. [id number]/CPS #: [id number] Gisell- [id number]/CPS #: [id number] ROGER
[2018-05-27 14:33] LABS: Body Fluid Source Cerebral Spinal
[2018-05-27] MEDS ORDERED: Naloxone* 0.4 MG/ML 1 ML VIAL IV PRN (14:36)
[2018-05-27] MEDS ORDERED: fentaNYL* 50 MCG/ML 2 ML VIAL (100 MCG VIAL) IV PRN (14:36)
[2018-05-27] MEDS ORDERED: Ondansetron INJ* 2 MG/ML VIAL IV PRN (14:36)
--- NOTE | 2018-05-27 14:54 | RAD ---
INDICATION: Right-sided central venous catheter placement COMPARISON: Chest x-ray May 26, 2018 TECHNIQUE: An AP portable view obtained at 1422 hours is submitted. FINDINGS: Bones/Soft Tissues: There are no acute bony findings. There is right-sided central venous catheter placement. The catheter terminates in the superior vena cava Cardiomediastinal: The cardiomediastinal silhouette is normal. Lungs: There are no acute infiltrates. There is no pneumothorax. Evaluation left lung base is mildly limited due to artifact from the patient's left hand. Pleura: There are no pleural effusions. Other: None IMPRESSION: RIGHT POWERPORT PLACEMENT. NO PNEUMOTHORAX.
--- NOTE | 2018-05-27 15:17 | RAD ---
INDICATION: PowerPort placement. Technique: 6.6 seconds of?fluoroscopy?was provided?for the physician proceduralist. REPORT: Final image documents the tip of the tunneled RIGHT side central venous catheter at the level of the superior vena cava directed central. IMPRESSION: Procedural control films. CPT II Codes: G9500
--- NOTE | 2018-05-27 15:55 | PM ---
DATE OF PROCEDURE: 05/27/2018. CHIEF COMPLAINT: Recently diagnosed lymphoma. HISTORY: The patient is a 68-year-old male who was admitted to the hospital and found to be suffering from DLBCL of the sphenoid sinus and was scheduled today to undergo a power port placement. As part of the work-up to see if there was [employer] involvement, the oncologist had requested a diagnostic lumbar puncture to see if there was a need for intrathecal Methotrexate. It was decided to perform the procedure after he had the power port done today in the operating room. His laboratory values were checked. His platelet count was 405 , his INR was slightly elevated at 1.3. PROCEDURE: We talked to the patient about the risks, benefits, and alternatives to treatment and informed consent was obtained preoperatively. After the completion of the power port was placed, the patient was turned in the right lateral decubitus position. His back was prepped and draped in the usual sterile fashion. Unfortunately, the patient could not curl his back sufficiently for easy interspinous access. I anesthetized the skin and subcutaneous tissues between L5 and S1, and then used a 22 gauge spinal needle directed at the interspace at L5-S1 to try to access the subarachnoid space. However, I was unable to do so, so the patient was then placed in a sitting position where he was finally able to flex forward. I reprepped and draped his back and then anesthetized the skin and subcutaneous tissues with 1 cc of 1 percent Lidocaine at L5-S1. I then advanced the 22 gauge spinal needle into the interspinous space and was able to access the subarachnoid space without paresthesia or blood. I proceeded to collect four vials of clear CSF for laboratory analysis. It will be sent to the laboratory for analysis per Esme Patton and the Oncology team's orders. The patient tolerated the procedure well and was brought to the recovery room in stable condition. [id number]/[facility] #: [id number] WE[facility] CORNELL MEDICAL CENTERKvng
[2018-05-27] MEDS: Dexamethasone IV* 40 MG in NS 0.9% 50 ML* 50 ML IVPB SCH (16:04)
[2018-05-27 16:32] LABS: EGFR Non-African American 141.3 (>60)
[2018-05-27] MEDS: Polyethylene Glycol 3350* 17 GM PACKET PO SCH (18:11)
[2018-05-27] MEDS: Gabapentin CAP(*) 300 MG PO SCH (18:11)
[2018-05-27] MEDS: Nortriptyline CAP* 10 MG PO SCH (21:39)
[2018-05-27] MEDS: Senna TAB PO PRN (21:39)
[2018-05-27] MEDS: Heparin VIAL(*) 5000 UNITS/ML VIAL (FIVE THOUSAND) SUBCUT SCH (21:44)
--- NOTE | 2018-05-28 00:50 | OP ---
CC: Dr. Vasyl Caro; [facility] * DATE OF OPERATION: 05/27/18 - ROOM #402 DATE OF : 46 SURGEON: Vasyl Caro MD BACON SKINNER: None. ANESTHESIOLOGIST: Dr. Meek. ANESTHESIA: LMAC anesthesia. PRE-OP DIAGNOSIS: Lymphoma. POST-OP DIAGNOSIS: Lymphoma. OPERATIVE PROCEDURE: Placement of right subclavian 8-Uzbek PowerPort. DESCRIPTION OF PROCEDURE: The patient was supine on the operating room table. After adequate intravenous sedation, compression stockings, Fozia Hugger warmer, and intravenous antibiotics, the right neck and chest region were prepped with antiseptic and draped in a sterile fashion. Local infiltrative anesthesia was administered and approximately 3 cm subclavian incision was created. Inferior pocket was created. Subclavian venipuncture was carried out. Guidewire passed under fluoroscopic guidance. Catheter passed through the Peel-Away introducer, measured and cut at 24 cm and attached to the port, which was sutured in the pocket with 2-0 Prolene. The pocket was closed with 3-0 and 5-0 Vicryl followed by Steri-Strips. The port had good blood return. It was flushed with saline solution and then the final heparin flushed. He tolerated the procedure well, was awakened, and Anesthesia will be performing the lumbar puncture part of the procedure and then, he will be brought to recovery room for chest x-ray. [id number]/CPS #: [id number] MTDD
[2018-05-28] MEDS: Saline NASAL SPRAY 0.65%* BTL BOTH NARES SCH ×4 (01:43→16:06)
[2018-05-28] MEDS: Acetaminophen TAB* 325 MG PO SCH ×3 (01:43→16:01)
[2018-05-28] MEDS: Heparin VIAL(*) 5000 UNITS/ML VIAL (FIVE THOUSAND) SUBCUT SCH ×3 (05:49→22:11)
[2018-05-28] MEDS: Levothyroxine TAB* 25 MCG TAB PO SCH (05:50)
[2018-05-28 07:01] LABS: EGFR Non-African American 115.3 (>60)
[2018-05-28] MEDS: Omeprazole CAP* 20 MG PO SCH (07:46)
[2018-05-28] MEDS: Docusate CAP* 100 MG PO SCH ×2 (07:46→22:03)
[2018-05-28] MEDS: oxyCODONE SR TAB(*) 15 MG TAB.SR PO SCH ×2 (07:46→22:11)
[2018-05-28] MEDS: Allopurinol TAB* 300 MG PO SCH (07:46)
[2018-05-28] MEDS: amLODIPine TAB* 5 MG PO SCH (07:47)
[2018-05-28] MEDS: guaiFENesin ER TAB 600 MG PO SCH ×2 (07:47→22:03)
[2018-05-28] MEDS: Desmopressin TAB (NF) 0.1 MG TAB PO SCH ×2 (07:47→22:11)
[2018-05-28] MEDS: Famotidine TAB* 20 MG PO SCH ×2 (07:48→22:10)
--- NOTE | 2018-05-28 07:50 | PN ---
Subjective - Subjective Reason for Note: Progress Note History: He started ddAVP yesterday. Overnight he urinated x 1 - this is a huge contrast to normal and allowed him to get a good nights sleep. He also notes he has no headache this morning. His energy has improved. Active Problems: Active Problems Diabetes insipidus (Acute) E23.2 Hypernatremia (Acute) E87.0 Likely secondary to DI, patient has a long history of excessive thrist and urine output. Continue 1/2NS. Start Desmopressin in AM after fluids D/C'd. Low levels of other hormones produced in pituitary. 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 Current Medications: Current Medications Acetaminophen (Tylenol Tab*) 975 mg PO Q8H [facility] Last Admin: 05/28/18 01:43 Dose: 975 mg Albuterol (Ventolin Hfa Inhaler*) 1 puff INH Q6H PRN PRN Reason: SHORTNESS OF BREATH Last Admin: 05/24/18 23:52 Dose: 1 puff Albuterol/Ipratropium (Duoneb (Albuterol 2.5 Mg/Ipratropium 0.5 Mg)) 1 neb INH Q4H PRN PRN Reason: SOB/WHEEZING Allopurinol (Zyloprim Tab*) 300 mg PO DAILY [facility] Last Admin: 05/27/18 11:27 Dose: 300 mg Alprazolam (Xanax Tab*) 0.25 mg PO Q8H PRN PRN Reason: ANXIETY Last Admin: 05/25/18 11:09 Dose: 0.25 mg Amlodipine Besylate (Norvasc Tab*) 10 mg PO DAILY [facility] Last Admin: 05/27/18 08:56 Dose: 10 mg Baclofen (Lioresal Tab*) 5 mg PO BID PRN PRN Reason: SPASMS Desmopressin Acetate (Desmopressin Tab (Nf)) 0.1 mg PO BID [facility] Last Admin: 05/27/18 21:39 Dose: 0.1 mg Docusate Sodium (Colace Cap*) 200 mg PO BID [facility] Last Admin: 05/27/18 21:39 Dose: 200 mg Famotidine (Pepcid Tab*) 20 mg PO BID [facility]; Protocol Last Admin: 05/27/18 21:39 Dose: 20 mg Gabapentin (Neurontin Cap(*)) 300 mg PO QPM [facility] Last Admin: 05/27/18 18:11 Dose: 300 mg Guaifenesin (Mucinex*) 1,200 mg PO BID [facility] Last Admin: 05/27/18 21:38 Dose: 1,200 mg Heparin Sodium (Porcine) (Heparin Vial(*)) 5,000 units SUBCUT Q8HR [facility] Last Admin: 05/28/18 05:49 Dose: 5,000 units Dexamethasone Sodium Phosphate (40 mg/ Sodium Chloride) 60 mls @ 210 mls/hr IVPB DAILY [facility] Stop: 05/31/18 10:59 Last Admin: 05/27/18 16:04 Dose: 210 mls/hr Levothyroxine Sodium (Synthroid Tab*) 50 mcg PO DAILY@0600 [facility] Last Admin: 05/28/18 05:50 Dose: 50 mcg Nortriptyline HCl (Pamelor Cap*) 10 mg PO BEDTIME [facility] Last Admin: 05/27/18 21:39 Dose: 10 mg Omeprazole (Prilosec Cap*) 40 mg PO DAILY@0730 [facility] Last Admin: 05/27/18 08:54 Dose: 40 mg Ondansetron HCl (Zofran Inj*) 4 mg IV Q6H PRN PRN Reason: NAUSEA Last Admin: 05/27/18 08:51 Dose: 4 mg Ondansetron HCl (Zofran Odt Tab*) 4 mg SL Q6H PRN PRN Reason: NAUSEA/VOMITING Oxycodone HCl (Oxycontin(*)) 30 mg PO Q12HR [facility] Last Admin: 05/27/18 21:38 Dose: 30 mg Oxycodone HCl (Roxycodone Tab*) 5 mg PO Q4H PRN PRN Reason: PAIN - BREAKTHROUGH Last Admin: 05/26/18 20:01 Dose: 5 mg Polyethylene Glycol/Electrolytes (Miralax*) 17 gm PO QPM [facility] Last Admin: 05/27/18 18:11 Dose: 17 gm Senna (Senokot Tab*) 1 tab PO BEDTIME PRN PRN Reason: CONSTIPATION Last Admin: 05/27/18 21:39 Dose: 1 tab Sodium Chloride (Sodium Chloride 0.65% Nasal [place]*) 2 spray BOTH NARES Q6H [facility] Last Admin: 05/28/18 05:50 Dose: 2 spray Zolpidem Tartrate (Ambien Tab*) 5 mg PO BEDTIME PRN PRN Reason: INSOMNIA Home Medications: Home Medications Medication Instructions Recorded Confirmed Type Baclofen TAB* [Lioresal TAB*] 5 mg PO BID PRN 09/01/17 05/22/18 History Butalb/Acetamin/Caff TAB* 1 tab PO BID PRN 09/01/17 05/22/18 History [Fioricet TAB*] Nortriptyline CAP* [Nortriptylline 10 mg PO BEDTIME 09/01/17 05/22/18 History CAP*] Omeprazole CAP* [Prilosec CAP* 20 40 mg PO DAILY@0730 #60 cap. 09/04/17 Rx MG] Acetaminophen TAB* [Tylenol TAB*] 650 mg PO Q6H PRN tab 02/15/18 05/22/18 Rx amLODIPine TAB* [Norvasc 5 mg TAB*] 10 mg PO DAILY #30 tab 02/15/18 05/22/18 Rx Albuterol HFA INHALER* [Ventolin 1 puff INH Q6H PRN 04/26/18 05/22/18 History HFA Inhaler*] Gabapentin CAP(*) [Neurontin 300 300 mg PO QPM 04/26/18 05/22/18 History CAP(*)] Ranitidine TAB (NF) [Zantac TAB 150 mg PO BID 04/26/18 05/22/18 History (NF)] oxyCODONE TAB* [Roxycodone TAB 5 5 mg PO BID PRN 04/26/18 05/22/18 History mg*] Oxycodone HCl/Acetaminophen 2 each PO Q6H PRN #40 tablet MDD 8 05/19/18 Rx [Endocet 10-325 mg Tablet] Saline NASAL SPRAY 0.65%* 2 spray BOTH NARES Q6HR PRN 05/24/18 05/24/18 History Allergies: Allergies Allergy/AdvReac Type Severity Reaction Status Date / Time budesonide [From Symbicort] Allergy Unknown Verified 05/22/18 19:20 Reaction Details cefuroxime [From Ceftin] Allergy Difficulty Verified 05/22/18 19:20 Breathing formoterol [From Symbicort] Allergy Unknown Verified 05/22/18 19:20 Reaction Details warfarin Allergy Unknown Verified 05/23/18 03:39 Reaction Details amoxicillin [From Augmentin] AdvReac GI Upset Verified 05/22/18 19:20 azithromycin AdvReac GI Upset Verified 05/23/18 03:39 clavulanic acid AdvReac GI Upset Verified 05/22/18 19:20 [From Augmentin] levofloxacin AdvReac Abdominal Verified 05/23/18 03:39 Pain meperidine [From Demerol] AdvReac Hallucinati Verified 05/23/18 03:39 ons Objective - Vital Signs Vital Signs: Vital Signs 05/27/18 05/27/18 05/27/18 08:00 08:53 11:25 Temperature 98.2 F Pulse Rate 73 Respiratory 20 20 18 Rate Blood Pressure 127/63 (mmHg) O2 Sat by Pulse 100 Oximetry 05/27/18 05/27/18 05/27/18 13:57 14:00 14:03 Temperature 98.1 F Pulse Rate 80 83 Respiratory 18 Rate Blood Pressure 143/70 (mmHg) O2 Sat by Pulse 100 100 Oximetry 05/27/18 05/27/18 05/27/18 14:05 14:10 14:15 Temperature Pulse Rate 92 83 79 Respiratory Rate Blood Pressure 143/78 145/70 142/69 (mmHg) O2 Sat by Pulse 93 100 99 Oximetry 05/27/18 05/27/18 05/27/18 14:21 14:25 14:30 Temperature Pulse Rate 86 81 79 Respiratory Rate Blood Pressure 132/99 135/76 137/70 (mmHg) O2 Sat by Pulse 99 100 99 Oximetry 05/27/18 05/27/18 05/27/18 14:35 14:40 14:45 Temperature Pulse Rate 83 81 79 Respiratory Rate Blood Pressure 139/76 133/76 135/74 (mmHg) O2 Sat by Pulse 100 99 99 Oximetry 05/27/18 05/27/18 05/27/18 14:50 14:55 15:00 Temperature Pulse Rate 76 80 81 Respiratory Rate Blood Pressure 133/69 136/69 141/70 (mmHg) O2 Sat by Pulse 98 99 98 Oximetry 0805/27/18 05/27/18 15:05 15:10 15:15 Temperature Pulse Rate 75 76 85 Respiratory Rate Blood Pressure 131/65 134/61 142/68 (mmHg) O2 Sat by Pulse 99 98 99 Oximetry 05/27/18 05/27/18 05/27/18 15:30 16:00 16:24 Temperature 97.3 F Pulse Rate 86 102 Respiratory 22 Rate Blood Pressure 127/66 121/50 (mmHg) O2 Sat by Pulse 100 100 100 Oximetry 05/27/18 05/27/18 05/27/18 17:31 18:11 18:52 Temperature 98.5 F 98.4 F Pulse Rate 90 98 Respiratory 22 20 22 Rate Blood Pressure 113/57 121/57 (mmHg) O2 Sat by Pulse 99 100 Oximetry 05/27/18 05/27/18 05/27/18 20:00 20:10 20:28 Temperature 97.6 F Pulse Rate 92 Respiratory 20 20 20 Rate Blood Pressure 112/59 (mmHg) O2 Sat by Pulse 100 Oximetry 05/27/18 05/27/18 05/27/18 21:38 22:40 23:39 Temperature 98.3 F 98.8 F Pulse Rate 91 87 Respiratory 18 18 18 Rate Blood Pressure 120/62 126/61 (mmHg) O2 Sat by Pulse 99 100 Oximetry 05/28/18 05/28/18 01:18 02:48 Temperature 98.5 F Pulse Rate 98 88 Respiratory 20 18 Rate Blood Pressure 112/56 (mmHg) O2 Sat by Pulse 100 98 Oximetry - Intake and Output Intake and Output: Intake & Output 05/25/18 05/26/18 05/27/18 05/28/18 11:59 11:59 11:59 11:59 Intake Total 5007 1680 1520 1500 Output Total 6530 1875 775 900 Balance -1523 -195 745 600 Weight 138 lb 146 lb 3.2 oz 145 lb 12.8 oz Intake: IV Fluids 947 980 700 D5W 1/2 NS 947 980 LR 700 IVPB 100 NS 40 dexometh 60 Oral 4060 1680 540 700 Output: Urine 6530 1875 775 900 Other: Estimated Void Medium Date of Last Bowel 05/19/18 05/19/18 Movement # Bowel Movements 0 0 0 0 # Voids 3 2 1 ADLs: Meal Record Start: 05/23/18 05: 20 Freq: DAILY@0900,1400,1800 Status: Active Protocol: Created 05/23/18 05:20 System (Rec: 05/23/18 05:20 System MED-M11) Document 05/23/18 08:37 [id number] (Rec: 05/23/18 08:37 [id number] MED-C02) Document 05/23/18 13:42 [id number] (Rec: 05/23/18 13:43 [id number] MED-C09) Document 05/23/18 18:00 [id number] (Rec: 05/23/18 18:24 [id number] MED-C09) Document 05/24/18 09:00 [id number] (Rec: 05/24/18 09:31 [id number] MED-C11) Document 05/24/18 14:00 [id number] (Rec: 05/24/18 14:05 [id number] MED-C09) Document 05/24/18 18:00 [id number] (Rec: 05/24/18 20:19 [id number] MED-C16) Document 05/25/18 09:00 [id number] (Rec: 05/25/18 09:19 [id number] MED-C11) Document 05/25/18 13:57 [id number] (Rec: 05/25/18 14:00 [id number] MED-C11) Document 05/25/18 17:44 [id number] (Rec: 05/25/18 17:45 [id number] MED-C11) Document 05/26/18 09:00 [id number] (Rec: 05/26/18 09:30 [id number] MED-C13) Document 05/26/18 14:00 [id number] (Rec: 05/26/18 14:55 [id number] MED-C13) Document 05/26/18 17:39 [id number] (Rec: 05/26/18 17:39 [id number] MED-C09) Document 05/27/18 08:26 [id number] (Rec: 05/27/18 08:27 [id number] MED-C09) Document 05/27/18 13:52 [id number] (Rec: 05/27/18 14:03 [id number] MED-C11) Document 05/27/18 18:00 [id number] (Rec: 05/27/18 20:54 [id number] MED-C07) Intake and Output Start: 05/22/18 19: 19 Freq: Status: Active Protocol: Created 05/22/18 19:19 System (Rec: 05/22/18 19:19 System [id number]) Intake and Output Start: 05/23/18 05: 20 Freq: DAILY@0600,1400,2200 Status: Active Protocol: Created 05/23/18 05:20 System (Rec: 05/23/18 05:20 System MED-M11) Document 05/23/18 06:00 [id number] (Rec: 05/23/18 06:39 [id number] MED-C26) Document 05/23/18 09:43 [id number] (Rec: 05/23/18 09:43 [id number] MED-C09) Document 05/23/18 13:42 [id number] (Rec: 05/23/18 13:43 [id number] MED-C09) Document 05/23/18 14:32 [id number] (Rec: 05/23/18 14:33 [id number] MED-C09) Document 05/23/18 20:50 [id number] (Rec: 05/23/18 21:00 [id number] MED-C26) Document 05/24/18 04:14 [id number] (Rec: 05/24/18 04:14 [id number] MED-C26) Document 05/24/18 14:00 [id number] (Rec: 05/24/18 14:05 [id number] MED-C09) Document 05/24/18 21:32 [id number] (Rec: 05/24/18 21:34 [id number] MED-C16) Document 05/25/18 02:16 [id number] (Rec: 05/25/18 02:16 [id number] MED-C05) Document 05/25/18 02:39 [id number] (Rec: 05/25/18 02:39 [id number] MED-C09) Document 05/25/18 05:03 [id number] (Rec: 05/25/18 05:03 [id number] MED-C05) Document 05/25/18 05:20 [id number] (Rec: 05/25/18 05:22 [id number] MED-C11) Document 05/25/18 13:57 [id number] (Rec: 05/25/18 14:00 [id number] MED-C11) Document 05/25/18 22:00 [id number] (Rec: 05/25/18 22:09 [id number] MED-C11) Document 05/26/18 05:57 [id number] (Rec: 05/26/18 05:58 [id number] MED-C09) Document 05/26/18 14:00 [id number] (Rec: 05/26/18 14:55 [id number] MED-C13) Document 05/26/18 21:47 [id number] (Rec: 05/26/18 21:47 [id number] MED-M11) Document 05/26/18 22:00 [id number] (Rec: 05/26/18 22:25 [id number] MED-C09) Document 05/27/18 05:59 [id number] (Rec: 05/27/18 06:00 [id number] MED-C11) Document 05/27/18 13:52 [id number] (Rec: 05/27/18 14:03 [id number] MED-C11) Document 05/27/18 20:26 [id number] (Rec: 05/27/18 20:26 [id number] MED-C05) Document 05/27/18 22:00 [id number] (Rec: 05/27/18 22:08 [id number] MED-C07) Document 05/28/18 06:00 [id number] (Rec: 05/28/18 06:12 [id number] MED-C09) Results - Results Lab Results: Laboratory Results - last 24 hr 05/27/18 05/27/18 05/27/18 06:14 09:43 13:50 Sodium 148 H Potassium 3.6 Chloride 108 Carbon Dioxide 35 H Anion Gap 5 BUN 6 Creatinine 0.58 L Est GFR ( Amer) 167.6 Est GFR (Non-Af Amer) 138.5 BUN/Creatinine Ratio 10.3 Glucose 119 H Calcium 8.8 Magnesium 2.1 Prolactin 7.3 Cortisol 12.29 Fluid Source Cerebral spinal Fluid Volume 2 Fluid Color Colorless Fluid Appearance Clear Fluid WBC 1.5 Fluid RBC 29 Fluid Tot Cell Count 39 Fluid Neutrophils Not Reportable Fluid Lymphocytes 77 Fluid Monocytes 23 Fluid Comment CSF Cell Count Tube # 4 05/27/18 05/28/18 16:00 06:03 Sodium 144 143 Potassium 3.9 4.0 Chloride 104 102 Carbon Dioxide 35 H 35 H Anion Gap 5 6 BUN 6 11 Creatinine 0.57 L 0.68 Est GFR ( Amer) 171.0 139.5 Est GFR (Non-Af Amer) 141.3 115.3 BUN/Creatinine Ratio 10.5 16.2 Glucose 128 H 147 H Calcium 8.5 L 8.8 Magnesium Prolactin 8.2 Cortisol 4.45 Fluid Source Fluid Volume Fluid Color Fluid Appearance Fluid WBC Fluid RBC Fluid Tot Cell Count Fluid Neutrophils Fluid Lymphocytes Fluid Monocytes Fluid Comment CSF Cell Count Tube # Assessment - Problem List Assessment: Patient Problems Diabetes insipidus (Acute) Hypernatremia (Acute) Hypokalemia (Acute) Hypothalamic mass (Acute) Large B-cell lymphoma (Acute) 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) Acute and chronic respiratory failure with hypercapnia (Acute) Anxiety (Acute) Chronic sinusitis (Acute) DVT prophylaxis (Acute) Epigastric abdominal pain of unknown etiology (Acute) Full code status (Acute) Hyponatremia (Acute) Insomnia (Acute) Leukocytosis (Acute) Nasal mass (Acute) Nausea & vomiting (Acute) Aortic root aneurysm (Chronic) COPD (chronic obstructive pulmonary disease) (Chronic) COPD exacerbation (Chronic) Chronic hypercapnic respiratory failure (Chronic) GERD (gastroesophageal reflux disease) (Chronic) HTN (hypertension) (Chronic) Pontine lesion (Chronic) Plan: Diabetes insipidus (Acute) His BMP is on target this morning. He has no evidence of either hyper or hyponatremia. I have asked the patient to track whether the effect of the ddAVP runs out inbetween his 2 doses each day - i.e. whether he starts having a diuresis prior to each dose of ddAVP. Hypernatremia (Acute) resolved Panhypopituitarism (Acute) - Adrenal insufficiency - he has normal range cortisol results prior to receiving large parenteral doses of steroids as part of the lymphpoma regimen. He is actually feeling much improved this morning. It is possible he has relative, incomplete adrenal insufficiency. Also, the steroids may help with his COPD. 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 - Somatotrophs - we are awaiting results of labs. Hypokalemia (Acute) Resolved Large B-cell lymphoma (Acute)Mass of sphenoid sinus (Acute) Per oncology. I discussed the above with the patient and I called his Talita and explained the nature of his pituitary problems and in particular the management of the diabetes insipidus.
--- NOTE | 2018-05-28 08:47 | CONS ---
CONSULTATION REPORT: ADDENDUM: IMPRESSION: Wojciech Chopra is a 68-year-old male. He presented with a large mass in his sphenoid sinus which turns out to be a large B-cell lymphoma. He has evidence of involvement of his hypothalamus and pituitary; this is resulting problems in both his posterior pituitary and anterior pituitary function. He has evidence of diabetes insipidus, anterior pituitary evidence of both thyroid and gonadal failure. It looks like he may have adequate reserve in terms of his adrenal function; lactotroph and growth hormone function remained unclear. ASSESSMENT AND PLAN: 1. Large B-cell lymphoma - this is being managed by Oncology. 2. Diabetes insipidus - I will start him on DDAVP 0.1 mg twice daily and watch his electrolytes carefully to ensure that we do not induce iatrogenic diabetes insipidus. 3. 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 4. Hypogonadism - this is not something we need to treat at this point. 5. Growth hormone and lactotroph function - I will ascertain these. 6. Adrenal function - I want to once again confirm he has had adequate reserve by checking a simultaneous cortisol and ACTH. This patient is going to require long-term management of his hypothalamic and pituitary lesions. I have explained this to the patient, and will follow during his hospital stay. [id number]/[facility] #: [id number] ROGER
[2018-05-28] MEDS: Dexamethasone IV* 40 MG in NS 0.9% 50 ML* 50 ML IVPB SCH (09:03)
[2018-05-28] MEDS ORDERED: Polyethylene Glycol 3350* 17 GM PACKET PO ONE (10:00)
--- NOTE | 2018-05-28 10:50 | PN ---
Progress Note - Progress Note Date of Service: 05/28/18 SOAP: Subjective: []Feeling better today then had been. Tolerating Dex, on Levothyroxine and Desmopressin for aquino pituitary dysfunction. No fevers, cough is improved, no SOB on NC. Acetaminophen (Tylenol Tab*) 975 mg PO Q8H [facility] Last Admin: 05/28/18 07:46 Dose: 975 mg Albuterol (Ventolin Hfa Inhaler*) 1 puff INH Q6H PRN PRN Reason: SHORTNESS OF BREATH Last Admin: 05/24/18 23:52 Dose: 1 puff Albuterol/Ipratropium (Duoneb (Albuterol 2.5 Mg/Ipratropium 0.5 Mg)) 1 neb INH Q4H PRN PRN Reason: SOB/WHEEZING Allopurinol (Zyloprim Tab*) 300 mg PO DAILY [facility] Last Admin: 05/28/18 07:46 Dose: 300 mg Alprazolam (Xanax Tab*) 0.25 mg PO Q8H PRN PRN Reason: ANXIETY Last Admin: 05/25/18 11:09 Dose: 0.25 mg Amlodipine Besylate (Norvasc Tab*) 10 mg PO DAILY [facility] Last Admin: 05/28/18 07:47 Dose: 10 mg Baclofen (Lioresal Tab*) 5 mg PO BID PRN PRN Reason: SPASMS Desmopressin Acetate (Desmopressin Tab (Nf)) 0.1 mg PO BID [facility] Last Admin: 05/28/18 07:47 Dose: 0.1 mg Docusate Sodium (Colace Cap*) 200 mg PO BID [facility] Last Admin: 05/28/18 07:46 Dose: 200 mg Famotidine (Pepcid Tab*) 20 mg PO BID [facility]; Protocol Last Admin: 05/28/18 07:48 Dose: 20 mg Gabapentin (Neurontin Cap(*)) 300 mg PO QPM [facility] Last Admin: 05/27/18 18:11 Dose: 300 mg Guaifenesin (Mucinex*) 1,200 mg PO BID [facility] Last Admin: 05/28/18 07:47 Dose: 1,200 mg Heparin Sodium (Porcine) (Heparin Vial(*)) 5,000 units SUBCUT Q8HR [facility] Last Admin: 05/28/18 05:49 Dose: 5,000 units Heparin Sodium (Porcine) (Heparin Flush Port ([place])) 5 ml FLUSH DAILY [facility]; Protocol Dexamethasone Sodium Phosphate (40 mg/ Sodium Chloride) 60 mls @ 210 mls/hr IVPB DAILY [facility] Stop: 05/31/18 10:59 Last Admin: 05/28/18 09:03 Dose: 210 mls/hr Levothyroxine Sodium (Synthroid Tab*) 50 mcg PO DAILY@0600 [facility] Last Admin: 05/28/18 05:50 Dose: 50 mcg Nortriptyline HCl (Pamelor Cap*) 10 mg PO BEDTIME [facility] Last Admin: 05/27/18 21:39 Dose: 10 mg Omeprazole (Prilosec Cap*) 40 mg PO DAILY@0730 [facility] Last Admin: 05/28/18 07:46 Dose: 40 mg Ondansetron HCl (Zofran Inj*) 4 mg IV Q6H PRN PRN Reason: NAUSEA Last Admin: 05/27/18 08:51 Dose: 4 mg Ondansetron HCl (Zofran Odt Tab*) 4 mg SL Q6H PRN PRN Reason: NAUSEA/VOMITING Oxycodone HCl (Oxycontin(*)) 30 mg PO Q12HR [facility] Last Admin: 05/28/18 07:46 Dose: 30 mg Oxycodone HCl (Roxycodone Tab*) 5 mg PO Q4H PRN PRN Reason: PAIN - BREAKTHROUGH Last Admin: 05/26/18 20:01 Dose: 5 mg Polyethylene Glycol/Electrolytes (Miralax*) 17 gm PO QPM [facility] Last Admin: 05/27/18 18:11 Dose: 17 gm Senna (Senokot Tab*) 1 tab PO BEDTIME PRN PRN Reason: CONSTIPATION Last Admin: 05/27/18 21:39 Dose: 1 tab Sodium Chloride (Sodium Chloride 0.65% Nasal [place]*) 2 spray BOTH NARES Q6H [facility] Last Admin: 05/28/18 05:50 Dose: 2 spray Zolpidem Tartrate (Ambien Tab*) 5 mg PO BEDTIME PRN PRN Reason: INSOMNIA Objective: [] Vital Signs Temp Pulse Resp BP Pulse Ox 97.2 F 84 18 135/60 95 05/28/18 07:19 05/28/18 07:45 05/28/18 07:55 05/28/18 07:19 05/28/18 07:55 HEENT: OM moist, no lesions and no thrush. 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 Final molecular studies are pending but behavior consistent with activated B cell or double hit lymphoma. Discussed with patient diagnosis of aggressive lymphoma with patient, and daughter Yadira. Chemotherapy that would be well tolerated , RCHOP has a low chance cure (40%). Optimal chemotherapy with HyperCVADD would not be tolerated. Discussed daEPOCH-R as most appropriate therapy. We discussed side effects and risks including significant risk of major complication and . Plan: []1. Will plan daEPHOCH-R on Thursday 05/31 - Rituximab 372 mg/m2 d 1 - Etoposide 50 mg/m2 CI d1-4 - doxorubicin 10 mg/m2 CI d1-4 - vincristine 0.4 mg/m2 CI d1-4 - cyclophosphamide 759 mg/m2 d5 - Prednisone 100 mg po d 1-5 GCSF starting day 6 3. CSF cytology pending. If negative, will need IT MTX weekly x 8 starting next week. If positive, BIW IT MTX until clears. Discussed with family. Possible HD MTX x 2 after last cycle of daEPHOCH if he is doing well. 3. Pituitary dysfunction. - Followed by Dr. 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 4. COPD. Extensive discussion regarding DNR and DNI. Risk if respiratory failure and vent support of not being able to wean. He needs to think about if he would want a ventilator. Encouraged him to consider before we start chemotherapy. Family will discuss 5. Hepatitis send and Echo done in January 22. BP has been fine, worried about low blood pressure after treatment, reduce Norvasc to 5 mg daily.
[2018-05-28] MEDS: Polyethylene Glycol 3350* 17 GM PACKET PO SCH (16:01)
[2018-05-28] MEDS: Gabapentin CAP(*) 300 MG PO SCH (16:01)
[2018-05-28] MEDS: Senna TAB PO PRN (22:10)
[2018-05-28] MEDS: Nortriptyline CAP* 10 MG PO SCH (22:11)
[2018-05-29] MEDS: Acetaminophen TAB* 325 MG PO SCH ×3 (00:39→17:25)
[2018-05-29] MEDS: Saline NASAL SPRAY 0.65%* BTL BOTH NARES SCH ×4 (00:40→22:40)
[2018-05-29 05:29] LABS: ABS Basophils 0 10^3/ul (0-0.2); ABS Eosinophils 0 10^3/ul (0-0.6); ABS Lymphocytes 0.8 10^3/ul (1.0-4.8); ABS Monocytes 0.6 10^3/ul (0-0.8); ABS Neutrophils 9.2 10^3/ul (1.5-7.7); ABS Nucleated RBC 0 10^3/ul; Eosinophil % 0 % (0-6); Hematocrit 30 % (42-52); Hemoglobin 10.2 g/dl (14.0-18.0); Lymphocyte % 7.2 % (25-47); Mean Corpuscular HGB Conc 34 g/dl (31-36); Mean Corpuscular Hemoglobin 31 pg (27-31); Mean Corpuscular Volume 92 fL (80-94); Mean Platelet Volume 6.6 um3 (7.4-10.4); Nucleated Red Blood Cells % 0; Platelet Count 368 10^3/ul (150-450); Red Cell Distribution Width 15 % (10.5-15); White Blood Count 10.6 10^3/ul (3.5-10.8)
[2018-05-29 05:45] LABS: EGFR Non-African American 150.4 (>60)
[2018-05-29] MEDS: Levothyroxine TAB* 25 MCG TAB PO SCH (05:47)
[2018-05-29] MEDS: Heparin VIAL(*) 5000 UNITS/ML VIAL (FIVE THOUSAND) SUBCUT SCH ×3 (05:47→22:40)
--- NOTE | 2018-05-29 07:34 | PN ---
Progress Note - Progress Note Date of Service: 05/29/18 SOAP: Subjective: feels a little better today. only urinated twice yesterday. no headaches. appetite improving on dexamethasone. +BM yesterday. no nausea. no vision problems Objective: Vital Signs Temp Pulse Resp BP Pulse Ox 97.8 F 84 16 114/61 91 05/29/18 04:01 05/29/18 04:01 05/29/18 04:01 05/29/18 04:01 05/29/18 04:01 perr eomi poor dentition CTA bl distant heart sounds soft min ttp throughout no le edema A+O x3, quite coherent this am port well healing, min ttp Laboratory Results - last 24 hr 05/27/18 05/27/18 05/27/18 09:43 09:43 13:50 WBC RBC Hgb Hct MCV MCH MCHC RDW Plt Count MPV Neut % (Auto) Lymph % (Auto) [place] % (Auto) Eos % (Auto) Baso % (Auto) Absolute Neuts (auto) Absolute Lymphs (auto) Absolute Monos (auto) Absolute Eos (auto) Absolute Basos (auto) Absolute Nucleated RBC Nucleated RBC % Sodium Potassium Chloride Carbon Dioxide Anion Gap BUN Creatinine Est GFR ( Amer) Est GFR (Non-Af Amer) BUN/Creatinine Ratio Glucose Serum Osmolality Calcium Magnesium Total Bilirubin AST ALT Alkaline Phosphatase Total Protein Albumin Globulin Albumin/Globulin Ratio Luteinizing Hormone Prolactin Human Growth Hormone 2.06 H ACTH 5.3 L Fluid Cell Count Rvw By 05/28/18 05/28/18 05/29/18 06:03 06:03 05:02 WBC 10.6 RBC 3.30 L Hgb 10.2 L Hct 30 L MCV 92 MCH 31 MCHC 34 RDW 15 Plt Count 368 MPV 6.6 L Neut % (Auto) 86.9 H Lymph % (Auto) 7.2 L [place] % (Auto) 5.9 Eos % (Auto) 0 Baso % (Auto) 0 Absolute Neuts (auto) 9.2 H Absolute Lymphs (auto) 0.8 L Absolute Monos (auto) 0.6 Absolute Eos (auto) 0 Absolute Basos (auto) 0 Absolute Nucleated RBC 0 Nucleated RBC % 0 Sodium Potassium Chloride Carbon Dioxide Anion Gap BUN Creatinine Est GFR ( Amer) Est GFR (Non-Af Amer) BUN/Creatinine Ratio Glucose Serum Osmolality 300 H Calcium Magnesium Total Bilirubin AST ALT Alkaline Phosphatase Total Protein Albumin Globulin Albumin/Globulin Ratio Luteinizing Hormone < 0.2 L Prolactin 8.2 Human Growth Hormone ACTH Fluid Cell Count Rvw By 05/29/18 05:02 WBC RBC Hgb Hct MCV MCH MCHC RDW Plt Count MPV Neut % (Auto) Lymph % (Auto) [place] % (Auto) Eos % (Auto) Baso % (Auto) Absolute Neuts (auto) Absolute Lymphs (auto) Absolute Monos (auto) Absolute Eos (auto) Absolute Basos (auto) Absolute Nucleated RBC Nucleated RBC % Sodium 136 Potassium 3.5 Chloride 99 L Carbon Dioxide 34 H Anion Gap 3 BUN 16 Creatinine 0.54 L Est GFR ( Amer) 182.0 Est GFR (Non-Af Amer) 150.4 BUN/Creatinine Ratio 29.6 H Glucose 99 Serum Osmolality Calcium 7.9 L Magnesium 2.0 Total Bilirubin 0.30 AST 9 L ALT 11 Alkaline Phosphatase 84 Total Protein 5.0 L Albumin 2.4 L Globulin 2.6 Albumin/Globulin Ratio 0.9 L Luteinizing Hormone Prolactin Human Growth Hormone ACTH Fluid Cell Count Rvw By Acetaminophen (Tylenol Tab*) 975 mg PO Q8H [facility] Last Admin: 05/29/18 00:39 Dose: 975 mg Albuterol (Ventolin Hfa Inhaler*) 1 puff INH Q6H PRN PRN Reason: SHORTNESS OF BREATH Last Admin: 05/24/18 23:52 Dose: 1 puff Albuterol/Ipratropium (Duoneb (Albuterol 2.5 Mg/Ipratropium 0.5 Mg)) 1 neb INH Q4H PRN PRN Reason: SOB/WHEEZING Allopurinol (Zyloprim Tab*) 300 mg PO DAILY [facility] Last Admin: 05/28/18 07:46 Dose: 300 mg Alprazolam (Xanax Tab*) 0.25 mg PO Q8H PRN PRN Reason: ANXIETY Last Admin: 05/25/18 11:09 Dose: 0.25 mg Amlodipine Besylate (Norvasc Tab*) 5 mg PO DAILY [facility] Baclofen (Lioresal Tab*) 5 mg PO BID PRN PRN Reason: SPASMS Desmopressin Acetate (Desmopressin Tab (Nf)) 0.1 mg PO BID [facility] Last Admin: 05/28/18 22:11 Dose: 0.1 mg Docusate Sodium (Colace Cap*) 200 mg PO BID [facility] Last Admin: 05/28/18 22:03 Dose: 200 mg Famotidine (Pepcid Tab*) 20 mg PO BID [facility]; Protocol Last Admin: 05/28/18 22:10 Dose: 20 mg Gabapentin (Neurontin Cap(*)) 300 mg PO QPM [facility] Last Admin: 05/28/18 16:01 Dose: 300 mg Guaifenesin (Mucinex*) 1,200 mg PO BID [facility] Last Admin: 05/28/18 22:03 Dose: 1,200 mg Heparin Sodium (Porcine) (Heparin Vial(*)) 5,000 units SUBCUT Q8HR [facility] Last Admin: 05/29/18 05:47 Dose: 5,000 units Heparin Sodium (Porcine) (Heparin Flush Port (Ivad)) 5 ml FLUSH DAILY [facility]; Protocol Last Admin: 05/28/18 12:00 Dose: Not Given Dexamethasone Sodium Phosphate (40 mg/ Sodium Chloride) 60 mls @ 210 mls/hr IVPB DAILY [facility] Stop: 05/31/18 10:59 Last Admin: 05/28/18 09:03 Dose: 210 mls/hr Levothyroxine Sodium (Synthroid Tab*) 50 mcg PO DAILY@0600 [facility] Last Admin: 05/29/18 05:47 Dose: 50 mcg Nortriptyline HCl (Pamelor Cap*) 10 mg PO BEDTIME [facility] Last Admin: 05/28/18 22:11 Dose: 10 mg Omeprazole (Prilosec Cap*) 40 mg PO DAILY@0730 [facility] Last Admin: 05/28/18 07:46 Dose: 40 mg Ondansetron HCl (Zofran Inj*) 4 mg IV Q6H PRN PRN Reason: NAUSEA Last Admin: 05/27/18 08:51 Dose: 4 mg Ondansetron HCl (Zofran Odt Tab*) 4 mg SL Q6H PRN PRN Reason: NAUSEA/VOMITING Oxycodone HCl (Oxycontin(*)) 30 mg PO Q12HR [facility] Last Admin: 05/28/18 22:11 Dose: 30 mg Oxycodone HCl (Roxycodone Tab*) 5 mg PO Q4H PRN PRN Reason: PAIN - BREAKTHROUGH Last Admin: 05/26/18 20:01 Dose: 5 mg Polyethylene Glycol/Electrolytes (Miralax*) 17 gm PO QPM [facility] Last Admin: 05/28/18 16:01 Dose: 17 gm Senna (Senokot Tab*) 1 tab PO BEDTIME PRN PRN Reason: CONSTIPATION Last Admin: 05/27/18 21:39 Dose: 1 tab Sodium Chloride (Sodium Chloride 0.65% Nasal [place]*) 2 spray BOTH NARES Q6H [facility] Last Admin: 05/29/18 05:47 Dose: 2 spray Zolpidem Tartrate (Ambien Tab*) 5 mg PO BEDTIME PRN PRN Reason: INSOMNIA Assessment: 68 yo M w 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 Plan: DLBCL: plan to start da-REPOCH Thursday cont high dose dexamethasone x 4 days (-) cont omeprazole and pepcid Endocrinopathies: greatly appreciate endo input cont ddavp, steroids, levothyroxine will d/w Dr. Hassan if we need to start testosterone repletion now or as outpatient hypokalemia: start kdur today at 20 meq COPD: cont O2 supplementation steroids for lymphoma helping DVT prophylaxis: sc heparin, encourage ambulation full code
[2018-05-29] MEDS ORDERED: Dexamethasone IV* 4 MG/ML 5 ML VIAL (20 MG) ONE (08:53)
[2018-05-29] MEDS ORDERED: Potassium Chlor TAB* 20 MEQ TAB.ER PO SCH (09:00)
[2018-05-29] MEDS: oxyCODONE SR TAB(*) 15 MG TAB.SR PO SCH ×2 (09:01→22:38)
[2018-05-29] MEDS: Famotidine TAB* 20 MG PO SCH ×2 (09:02→22:39)
[2018-05-29] MEDS: Desmopressin TAB (NF) 0.1 MG TAB PO SCH ×2 (09:02→22:39)
[2018-05-29] MEDS: Docusate CAP* 100 MG PO SCH ×2 (09:02→22:39)
[2018-05-29] MEDS: guaiFENesin ER TAB 600 MG PO SCH ×2 (09:03→22:39)
[2018-05-29] MEDS: Allopurinol TAB* 300 MG PO SCH (09:03)
[2018-05-29] MEDS: amLODIPine TAB* 5 MG PO SCH (09:03)
[2018-05-29] MEDS: Dexamethasone IV* 40 MG in NS 0.9% 50 ML* 50 ML IVPB SCH (09:04)
--- NOTE | 2018-05-29 10:19 | PN ---
Subjective - Subjective Reason for Note: Consultation Note History: Follow up endocrine consultation: He is urinating less frequently during the day and only x 1 at night - this is a large change. He has a severe headache this morning. His vision is unchanged. Active Problems: Active Problems Diabetes insipidus (Acute) E23.2 Hypernatremia (Acute) E87.0 Likely secondary to DI, patient has a long history of excessive thrist and urine output. Continue 1/2NS. Start Desmopressin in AM after fluids D/C'd. Low levels of other hormones produced in pituitary. 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 Current Medications: Current Medications Acetaminophen (Tylenol Tab*) 975 mg PO Q8H [facility] Last Admin: 05/29/18 00:39 Dose: 975 mg Albuterol (Ventolin Hfa Inhaler*) 1 puff INH Q6H PRN PRN Reason: SHORTNESS OF BREATH Last Admin: 05/24/18 23:52 Dose: 1 puff Albuterol/Ipratropium (Duoneb (Albuterol 2.5 Mg/Ipratropium 0.5 Mg)) 1 neb INH Q4H PRN PRN Reason: SOB/WHEEZING Allopurinol (Zyloprim Tab*) 300 mg PO DAILY [facility] Last Admin: 05/29/18 09:03 Dose: 300 mg Alprazolam (Xanax Tab*) 0.25 mg PO Q8H PRN PRN Reason: ANXIETY Last Admin: 05/25/18 11:09 Dose: 0.25 mg Amlodipine Besylate (Norvasc Tab*) 5 mg PO DAILY [facility] Last Admin: 05/29/18 09:03 Dose: 5 mg Baclofen (Lioresal Tab*) 5 mg PO BID PRN PRN Reason: SPASMS Desmopressin Acetate (Desmopressin Tab (Nf)) 0.1 mg PO BID [facility] Last Admin: 05/29/18 09:02 Dose: 0.1 mg Docusate Sodium (Colace Cap*) 200 mg PO BID [facility] Last Admin: 05/29/18 09:02 Dose: 200 mg Famotidine (Pepcid Tab*) 20 mg PO BID [facility]; Protocol Last Admin: 05/29/18 09:02 Dose: 20 mg Gabapentin (Neurontin Cap(*)) 300 mg PO QPM [facility] Last Admin: 05/28/18 16:01 Dose: 300 mg Guaifenesin (Mucinex*) 1,200 mg PO BID [facility] Last Admin: 05/29/18 09:03 Dose: 1,200 mg Heparin Sodium (Porcine) (Heparin Vial(*)) 5,000 units SUBCUT Q8HR [facility] Last Admin: 05/29/18 05:47 Dose: 5,000 units Heparin Sodium (Porcine) (Heparin Flush Port (Ivad)) 5 ml FLUSH DAILY [facility]; Protocol Last Admin: 05/29/18 09:03 Dose: Not Given Dexamethasone Sodium Phosphate (40 mg/ Sodium Chloride) 60 mls @ 210 mls/hr IVPB DAILY [facility] Stop: 05/31/18 10:59 Last Admin: 05/29/18 09:04 Dose: 210 mls/hr Levothyroxine Sodium (Synthroid Tab*) 50 mcg PO DAILY@0600 [facility] Last Admin: 05/29/18 05:47 Dose: 50 mcg Nortriptyline HCl (Pamelor Cap*) 10 mg PO BEDTIME [facility] Last Admin: 05/28/18 22:11 Dose: 10 mg Omeprazole (Prilosec Cap*) 40 mg PO DAILY@0730 [facility] Last Admin: 05/28/18 07:46 Dose: 40 mg Ondansetron HCl (Zofran Inj*) 4 mg IV Q6H PRN PRN Reason: NAUSEA Last Admin: 05/27/18 08:51 Dose: 4 mg Ondansetron HCl (Zofran Odt Tab*) 4 mg SL Q6H PRN PRN Reason: NAUSEA/VOMITING Oxycodone HCl (Oxycontin(*)) 30 mg PO Q12HR [facility] Last Admin: 05/29/18 09:01 Dose: 30 mg Oxycodone HCl (Roxycodone Tab*) 5 mg PO Q4H PRN PRN Reason: PAIN - BREAKTHROUGH Last Admin: 05/26/18 20:01 Dose: 5 mg Polyethylene Glycol/Electrolytes (Miralax*) 17 gm PO QPM [facility] Last Admin: 05/28/18 16:01 Dose: 17 gm Potassium Chloride (Klor Con Er Tab*) 20 meq PO DAILY [facility] Last Admin: 05/29/18 09:03 Dose: 20 meq Senna (Senokot Tab*) 1 tab PO BEDTIME PRN PRN Reason: CONSTIPATION Last Admin: 05/27/18 21:39 Dose: 1 tab Sodium Chloride (Sodium Chloride 0.65% Nasal [place]*) 2 spray BOTH NARES Q6H [facility] Last Admin: 05/29/18 05:47 Dose: 2 spray Zolpidem Tartrate (Ambien Tab*) 5 mg PO BEDTIME PRN PRN Reason: INSOMNIA Home Medications: Home Medications Medication Instructions Recorded Confirmed Type Baclofen TAB* [Lioresal TAB*] 5 mg PO BID PRN 09/01/17 05/22/18 History Butalb/Acetamin/Caff TAB* 1 tab PO BID PRN 09/01/17 05/22/18 History [Fioricet TAB*] Nortriptyline CAP* [Nortriptylline 10 mg PO BEDTIME 09/01/17 05/22/18 History CAP*] Omeprazole CAP* [Prilosec CAP* 20 40 mg PO DAILY@0730 #60 cap. 09/04/17 Rx MG] Acetaminophen TAB* [Tylenol TAB*] 650 mg PO Q6H PRN tab 02/15/18 05/22/18 Rx amLODIPine TAB* [Norvasc 5 mg TAB*] 10 mg PO DAILY #30 tab 02/15/18 05/22/18 Rx Albuterol HFA INHALER* [Ventolin 1 puff INH Q6H PRN 04/26/18 05/22/18 History HFA Inhaler*] Gabapentin CAP(*) [Neurontin 300 300 mg PO QPM 04/26/18 05/22/18 History CAP(*)] Ranitidine TAB (NF) [Zantac TAB 150 mg PO BID 04/26/18 05/22/18 History (NF)] oxyCODONE TAB* [Roxycodone TAB 5 5 mg PO BID PRN 04/26/18 05/22/18 History mg*] Oxycodone HCl/Acetaminophen 2 each PO Q6H PRN #40 tablet MDD 8 05/19/18 Rx [Endocet 10-325 mg Tablet] Saline NASAL SPRAY 0.65%* 2 spray BOTH NARES Q6HR PRN 05/24/18 05/24/18 History Allergies: Allergies Allergy/AdvReac Type Severity Reaction Status Date / Time budesonide [From Symbicort] Allergy Unknown Verified 05/22/18 19:20 Reaction Details cefuroxime [From Ceftin] Allergy Difficulty Verified 05/22/18 19:20 Breathing formoterol [From Symbicort] Allergy Unknown Verified 05/22/18 19:20 Reaction Details warfarin Allergy Unknown Verified 05/23/18 03:39 Reaction Details amoxicillin [From Augmentin] AdvReac GI Upset Verified 05/22/18 19:20 azithromycin AdvReac GI Upset Verified 05/23/18 03:39 clavulanic acid AdvReac GI Upset Verified 05/22/18 19:20 [From Augmentin] levofloxacin AdvReac Abdominal Verified 05/23/18 03:39 Pain meperidine [From Demerol] AdvReac Hallucinati Verified 05/23/18 03:39 ons Objective - Vital Signs Vital Signs: Vital Signs 05/28/18 05/28/18 05/28/18 11:28 14:42 15:41 Temperature 98.4 F 97.9 F Pulse Rate 81 78 Respiratory 18 20 Rate Blood Pressure 111/54 120/56 (mmHg) O2 Sat by Pulse 100 95 98 Oximetry 05/28/18 05/28/18 05/28/18 16:01 17:42 19:46 Temperature 97.7 F Pulse Rate 84 Respiratory 18 18 16 Rate Blood Pressure 115/56 (mmHg) O2 Sat by Pulse 99 Oximetry 05/28/18 05/28/18 05/28/18 20:00 22:11 22:56 Temperature 97.4 F Pulse Rate 87 Respiratory 16 20 18 Rate Blood Pressure 128/62 (mmHg) O2 Sat by Pulse 100 Oximetry 05/29/18 05/29/18 05/29/18 00:00 04:01 07:40 Temperature 97.8 F 98.3 F Pulse Rate 84 80 Respiratory 16 18 Rate Blood Pressure 114/61 119/59 (mmHg) O2 Sat by Pulse 100 91 100 Oximetry 05/29/18 05/29/18 08:00 09:01 Temperature Pulse Rate 79 Respiratory 16 20 Rate Blood Pressure (mmHg) O2 Sat by Pulse 94 Oximetry - Intake and Output Intake and Output: Intake & Output 05/26/18 05/27/18 05/28/18 05/29/18 11:59 11:59 11:59 11:59 Intake Total 1680 1520 1700 910 Output Total 1875 492 687 3145 Balance -195 745 800 -835 Weight 138 lb 146 lb 3.2 oz 145 lb 12.8 oz 146 lb 3.2 oz Intake: IV Fluids 980 700 D5W 1/2 NS 980 LR 700 IVPB 100 NS 40 dexometh 60 Oral 1680 540 900 910 Output: Urine 1875 592 098 1352 Other: Estimated Void Medium Small Date of Last Bowel 05/19/18 Movement # Bowel Movements 0 0 0 1 Estimated Stool Amount Medium # Voids 2 1 1 ADLs: Meal Record Start: 05/23/18 05: 20 Freq: DAILY@0900,1400,1800 Status: Active Protocol: Created 05/23/18 05:20 System (Rec: 05/23/18 05:20 System MED-M11) Document 05/23/18 08:37 [id number] (Rec: 05/23/18 08:37 [id number] MED-C02) Document 05/23/18 13:42 [id number] (Rec: 05/23/18 13:43 [id number] MED-C09) Document 05/23/18 18:00 [id number] (Rec: 05/23/18 18:24 [id number] MED-C09) Document 05/24/18 09:00 [id number] (Rec: 05/24/18 09:31 [id number] MED-C11) Document 05/24/18 14:00 [id number] (Rec: 05/24/18 14:05 [id number] MED-C09) Document 05/24/18 18:00 [id number] (Rec: 05/24/18 20:19 [id number] MED-C16) Document 05/25/18 09:00 [id number] (Rec: 05/25/18 09:19 [id number] MED-C11) Document 05/25/18 13:57 [id number] (Rec: 05/25/18 14:00 [id number] MED-C11) Document 05/25/18 17:44 [id number] (Rec: 05/25/18 17:45 [id number] MED-C11) Document 05/26/18 09:00 [id number] (Rec: 05/26/18 09:30 [id number] MED-C13) Document 05/26/18 14:00 [id number] (Rec: 05/26/18 14:55 [id number] MED-C13) Document 05/26/18 17:39 [id number] (Rec: 05/26/18 17:39 [id number] MED-C09) Document 05/27/18 08:26 [id number] (Rec: 05/27/18 08:27 [id number] MED-C09) Document 05/27/18 13:52 [id number] (Rec: 05/27/18 14:03 [id number] MED-C11) Document 05/27/18 18:00 [id number] (Rec: 05/27/18 20:54 [id number] MED-C07) Document 05/28/18 09:00 [id number] (Rec: 05/28/18 10:52 [id number] MED-C09) Document 05/28/18 14:00 [id number] (Rec: 05/28/18 14:43 [id number] MED-C11) Document 05/28/18 18:00 [id number] (Rec: 05/28/18 18:27 [id number] MED-C11) Document 05/29/18 09:00 [id number] (Rec: 05/29/18 09:46 [id number] MED-C13) Intake and Output Start: 05/22/18 19: 19 Freq: Status: Active Protocol: Created 05/22/18 19:19 System (Rec: 05/22/18 19:19 System [id number]) Intake and Output Start: 05/23/18 05: 20 Freq: DAILY@0600,1400,2200 Status: Active Protocol: Created 05/23/18 05:20 System (Rec: 05/23/18 05:20 System MED-M11) Document 05/23/18 06:00 [id number] (Rec: 05/23/18 06:39 [id number] MED-C26) Document 05/23/18 09:43 [id number] (Rec: 05/23/18 09:43 [id number] MED-C09) Document 05/23/18 13:42 [id number] (Rec: 05/23/18 13:43 [id number] MED-C09) Document 05/23/18 14:32 [id number] (Rec: 05/23/18 14:33 [id number] MED-C09) Document 05/23/18 20:50 [id number] (Rec: 05/23/18 21:00 [id number] MED-C26) Document 05/24/18 04:14 [id number] (Rec: 05/24/18 04:14 [id number] MED-C26) Document 05/24/18 14:00 [id number] (Rec: 05/24/18 14:05 [id number] MED-C09) Document 05/24/18 21:32 [id number] (Rec: 05/24/18 21:34 [id number] MED-C16) Document 05/25/18 02:16 [id number] (Rec: 05/25/18 02:16 [id number] MED-C05) Document 05/25/18 02:39 [id number] (Rec: 05/25/18 02:39 [id number] MED-C09) Document 05/25/18 05:03 [id number] (Rec: 05/25/18 05:03 [id number] MED-C05) Document 05/25/18 05:20 [id number] (Rec: 05/25/18 05:22 [id number] MED-C11) Document 05/25/18 13:57 [id number] (Rec: 05/25/18 14:00 [id number] MED-C11) Document 05/25/18 22:00 [id number] (Rec: 05/25/18 22:09 [id number] MED-C11) Document 05/26/18 05:57 [id number] (Rec: 05/26/18 05:58 [id number] MED-C09) Document 05/26/18 14:00 [id number] (Rec: 05/26/18 14:55 [id number] MED-C13) Document 05/26/18 21:47 [id number] (Rec: 05/26/18 21:47 [id number] MED-M11) Document 05/26/18 22:00 [id number] (Rec: 05/26/18 22:25 [id number] MED-C09) Document 05/27/18 05:59 [id number] (Rec: 05/27/18 06:00 [id number] MED-C11) Document 05/27/18 13:52 [id number] (Rec: 05/27/18 14:03 [id number] MED-C11) Document 05/27/18 20:26 [id number] (Rec: 05/27/18 20:26 [id number] MED-C05) Document 05/27/18 22:00 [id number] (Rec: 05/27/18 22:08 [id number] MED-C07) Document 05/28/18 06:00 [id number] (Rec: 05/28/18 06:12 [id number] MED-C09) Document 05/28/18 14:00 [id number] (Rec: 05/28/18 14:43 [id number] MED-C11) Document 05/28/18 22:00 [id number] (Rec: 05/28/18 22:28 [id number] MED-C26) Document 05/29/18 04:44 [id number] (Rec: 05/29/18 04:44 [id number] MED-C26) Document 05/29/18 06:07 [id number] (Rec: 05/29/18 06:07 [id number] MED-C04) Results - Results Lab Results: Laboratory Results - last 24 hr 05/27/18 05/27/18 05/27/18 09:43 09:43 13:50 WBC RBC Hgb Hct MCV MCH MCHC RDW Plt Count MPV Neut % (Auto) Lymph % (Auto) [place] % (Auto) Eos % (Auto) Baso % (Auto) Absolute Neuts (auto) Absolute Lymphs (auto) Absolute Monos (auto) Absolute Eos (auto) Absolute Basos (auto) Absolute Nucleated RBC Nucleated RBC % Sodium Potassium Chloride Carbon Dioxide Anion Gap BUN Creatinine Est GFR ( Amer) Est GFR (Non-Af Amer) BUN/Creatinine Ratio Glucose Calcium Magnesium Total Bilirubin AST ALT Alkaline Phosphatase Total Protein Albumin Globulin Albumin/Globulin Ratio Human Growth Hormone 2.06 H ACTH 5.3 L Fluid Cell Count Rvw By 05/29/18 05/29/18 05:02 05:02 WBC 10.6 RBC 3.30 L Hgb 10.2 L Hct 30 L MCV 92 MCH 31 MCHC 34 RDW 15 Plt Count 368 MPV 6.6 L Neut % (Auto) 86.9 H Lymph % (Auto) 7.2 L [place] % (Auto) 5.9 Eos % (Auto) 0 Baso % (Auto) 0 Absolute Neuts (auto) 9.2 H Absolute Lymphs (auto) 0.8 L Absolute Monos (auto) 0.6 Absolute Eos (auto) 0 Absolute Basos (auto) 0 Absolute Nucleated RBC 0 Nucleated RBC % 0 Sodium 136 Potassium 3.5 Chloride 99 L Carbon Dioxide 34 H Anion Gap 3 BUN 16 Creatinine 0.54 L Est GFR ( Amer) 182.0 Est GFR (Non-Af Amer) 150.4 BUN/Creatinine Ratio 29.6 H Glucose 99 Calcium 7.9 L Magnesium 2.0 Total Bilirubin 0.30 AST 9 L ALT 11 Alkaline Phosphatase 84 Total Protein 5.0 L Albumin 2.4 L Globulin 2.6 Albumin/Globulin Ratio 0.9 L Human Growth Hormone ACTH Fluid Cell Count Rvw By Assessment - Problem List Assessment: Patient Problems Diabetes insipidus (Acute) Hypernatremia (Acute) Hypokalemia (Acute) Hypothalamic mass (Acute) Large B-cell lymphoma (Acute) 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) Acute and chronic respiratory failure with hypercapnia (Acute) Anxiety (Acute) Chronic sinusitis (Acute) DVT prophylaxis (Acute) Epigastric abdominal pain of unknown etiology (Acute) Full code status (Acute) Hyponatremia (Acute) Insomnia (Acute) Leukocytosis (Acute) Nasal mass (Acute) Nausea & vomiting (Acute) Aortic root aneurysm (Chronic) COPD (chronic obstructive pulmonary disease) (Chronic) COPD exacerbation (Chronic) Chronic hypercapnic respiratory failure (Chronic) GERD (gastroesophageal reflux disease) (Chronic) HTN (hypertension) (Chronic) [place] lesion (Chronic) Plan: Diabetes insipidus (Acute) The dose of DDAVP 0.1 mg twice per day seems adequate. His I and O look on target. His sodium is in the reference range. I will continue to follow Hypernatremia (Acute) resolved Hypokalemia (Acute) I doubt he requires the oral potassium as he is not losing large amounts potassium with diabetes insipidus. I will stop his oral potassium Panhypopituitarism (Acute) He is tolerating the thyroid hormone. He is receiving a huge, non-physiological, dose of dexamethasone. I note his growth hormone is detectable - his IGF-1 is pending. Hypothalamic mass (Acute)Large B-cell lymphoma (Acute)Mass of sphenoid sinus ( Acute) Per Dr. Smart. I went through the above findings with the patient and his in detail. I couldn't get a mobile computer working, so I bought his to a desktop and showed her the normal anatomy of the pituitary/sphenoid sinuses as illustrations and MRIs on [employer], and then showed her his films. She has a much better appreciation of the problem. She would like me to show this to him tomorrow as he is having trouble making decisions about his treatment ( whether he should be DNR).
[2018-05-29] MEDS: Omeprazole CAP* 20 MG PO SCH (11:27)
[2018-05-29] MEDS: Gabapentin CAP(*) 300 MG PO SCH (17:26)
[2018-05-29] MEDS: Polyethylene Glycol 3350* 17 GM PACKET PO SCH (17:27)
[2018-05-29] MEDS: Nortriptyline CAP* 10 MG PO SCH (22:38)
[2018-05-30] MEDS: Acetaminophen TAB* 325 MG PO SCH ×4 (01:45→23:50)
[2018-05-30] MEDS: Saline NASAL SPRAY 0.65%* BTL BOTH NARES SCH ×4 (01:48→22:59)
[2018-05-30] MEDS: Levothyroxine TAB* 25 MCG TAB PO SCH (05:36)
[2018-05-30] MEDS: Heparin VIAL(*) 5000 UNITS/ML VIAL (FIVE THOUSAND) SUBCUT SCH ×3 (05:37→23:07)
[2018-05-30 06:50] LABS: ABS Basophils 0 10^3/ul (0-0.2); ABS Eosinophils 0 10^3/ul (0-0.6); ABS Lymphocytes 0.6 10^3/ul (1.0-4.8); ABS Monocytes 0.6 10^3/ul (0-0.8); ABS Neutrophils 8.2 10^3/ul (1.5-7.7); ABS Nucleated RBC 0 10^3/ul; Eosinophil % 0 % (0-6); Hematocrit 32 % (42-52); Hemoglobin 10.8 g/dl (14.0-18.0); Lymphocyte % 6.7 % (25-47); Mean Corpuscular HGB Conc 34 g/dl (31-36); Mean Corpuscular Hemoglobin 31 pg (27-31); Mean Corpuscular Volume 92 fL (80-94); Mean Platelet Volume 6.7 um3 (7.4-10.4); Nucleated Red Blood Cells % 0; Platelet Count 382 10^3/ul (150-450); Red Blood Count 3.46 10^6/ul (4.00-5.40); Red Cell Distribution Width 15 % (10.5-15); White Blood Count 9.5 10^3/ul (3.5-10.8)
[2018-05-30 07:06] LABS: EGFR Non-African American 144.2 (>60)
--- NOTE | 2018-05-30 07:52 | PN ---
Progress Note - Progress Note Date of Service: 05/30/18 SOAP: Subjective: sitting up in a chair feeling well. very slight headache at times. having BMs , urinating less. Objective: Vital Signs Temp Pulse Resp BP Pulse Ox 97.8 F 81 18 125/62 97 05/29/18 23:34 05/29/18 23:34 05/29/18 23:34 05/29/18 23:34 05/30/18 00:00 sitting up in nad perr eomi op moist cta bl distant hs soft nt +bs no le edema A+O x 3, nonfocal neurological exam port site healing, can access tomorrow Laboratory Results - last 24 hr 05/28/18 05/30/18 05/30/18 06:03 06:28 06:28 WBC 9.5 RBC 3.46 L Hgb 10.8 L Hct 32 L MCV 92 MCH 31 MCHC 34 RDW 15 Plt Count 382 MPV 6.7 L Neut % (Auto) 86.5 H Lymph % (Auto) 6.7 L [place] % (Auto) 6.8 Eos % (Auto) 0 Baso % (Auto) 0 Absolute Neuts (auto) 8.2 H Absolute Lymphs (auto) 0.6 L Absolute Monos (auto) 0.6 Absolute Eos (auto) 0 Absolute Basos (auto) 0 Absolute Nucleated RBC 0 Nucleated RBC % 0 Sodium 135 Potassium 4.1 Chloride 98 L Carbon Dioxide 35 H Anion Gap 2 BUN 12 Creatinine 0.56 L Est GFR ( Amer) 174.5 Est GFR (Non-Af Amer) 144.2 BUN/Creatinine Ratio 21.4 H Glucose 92 Calcium 8.0 L Magnesium 2.1 Total Bilirubin 0.30 AST 11 L ALT 11 Alkaline Phosphatase 91 Total Protein 5.3 L Albumin 2.5 L Globulin 2.8 Albumin/Globulin Ratio 0.9 L ACTH <5.0 L Acetaminophen (Tylenol Tab*) 975 mg PO Q8H [facility] Last Admin: 05/30/18 01:45 Dose: 975 mg Albuterol (Ventolin Hfa Inhaler*) 1 puff INH Q6H PRN PRN Reason: SHORTNESS OF BREATH Last Admin: 05/24/18 23:52 Dose: 1 puff Albuterol/Ipratropium (Duoneb (Albuterol 2.5 Mg/Ipratropium 0.5 Mg)) 1 neb INH Q4H PRN PRN Reason: SOB/WHEEZING Allopurinol (Zyloprim Tab*) 300 mg PO DAILY [facility] Last Admin: 05/29/18 09:03 Dose: 300 mg Alprazolam (Xanax Tab*) 0.25 mg PO Q8H PRN PRN Reason: ANXIETY Last Admin: 05/25/18 11:09 Dose: 0.25 mg Amlodipine Besylate (Norvasc Tab*) 5 mg PO DAILY [facility] Last Admin: 05/29/18 09:03 Dose: 5 mg Baclofen (Lioresal Tab*) 5 mg PO BID PRN PRN Reason: SPASMS Desmopressin Acetate (Desmopressin Tab (Nf)) 0.1 mg PO BID [facility] Last Admin: 05/29/18 22:39 Dose: 0.1 mg Docusate Sodium (Colace Cap*) 200 mg PO BID [facility] Last Admin: 05/29/18 22:39 Dose: 200 mg Famotidine (Pepcid Tab*) 20 mg PO BID [facility]; Protocol Last Admin: 05/29/18 22:39 Dose: 20 mg Gabapentin (Neurontin Cap(*)) 300 mg PO QPM [facility] Last Admin: 05/29/18 17:26 Dose: 300 mg Guaifenesin (Mucinex*) 1,200 mg PO BID [facility] Last Admin: 05/29/18 22:39 Dose: 1,200 mg Heparin Sodium (Porcine) (Heparin Vial(*)) 5,000 units SUBCUT Q8HR [facility] Last Admin: 05/30/18 05:37 Dose: 5,000 units Heparin Sodium (Porcine) (Heparin Flush Port (Ivad)) 5 ml FLUSH DAILY [facility]; Protocol Last Admin: 05/29/18 09:03 Dose: Not Given Dexamethasone Sodium Phosphate (40 mg/ Sodium Chloride) 60 mls @ 210 mls/hr IVPB DAILY [facility] Stop: 05/31/18 10:59 Last Admin: 05/29/18 09:04 Dose: 210 mls/hr Levothyroxine Sodium (Synthroid Tab*) 50 mcg PO DAILY@0600 [facility] Last Admin: 05/30/18 05:36 Dose: 50 mcg Nortriptyline HCl (Pamelor Cap*) 10 mg PO BEDTIME [facility] Last Admin: 08/11/18 22:38 Dose: 10 mg Omeprazole (Prilosec Cap*) 40 mg PO DAILY@0730 [facility] Last Admin: 05/29/18 11:27 Dose: 40 mg Ondansetron HCl (Zofran Inj*) 4 mg IV Q6H PRN PRN Reason: NAUSEA Last Admin: 05/27/18 08:51 Dose: 4 mg Ondansetron HCl (Zofran Odt Tab*) 4 mg SL Q6H PRN PRN Reason: NAUSEA/VOMITING Oxycodone HCl (Oxycontin(*)) 30 mg PO Q12HR [facility] Last Admin: 05/29/18 22:38 Dose: 30 mg Oxycodone HCl (Roxycodone Tab*) 5 mg PO Q4H PRN PRN Reason: PAIN - BREAKTHROUGH Last Admin: 05/26/18 20:01 Dose: 5 mg Polyethylene Glycol/Electrolytes (Miralax*) 17 gm PO QPM [facility] Last Admin: 05/29/18 17:27 Dose: 17 gm Senna (Senokot Tab*) 1 tab PO BEDTIME PRN PRN Reason: CONSTIPATION Last Admin: 05/27/18 21:39 Dose: 1 tab Sodium Chloride (Sodium Chloride 0.65% Nasal [place]*) 2 spray BOTH NARES Q6H [facility] Last Admin: 05/30/18 06:04 Dose: 2 spray Zolpidem Tartrate (Ambien Tab*) 5 mg PO BEDTIME PRN PRN Reason: INSOMNIA Assessment: 68 yo M w DLBCL of the sinus with 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 Plan: DLBCL: plan to start da-REPOCH tomorrow cont high dose dexamethasone x 4 days (-) cont omeprazole and pepcid Endocrinopathies: close endo fu cont ddavp, steroids, levothyroxine defer to Dr. Hassan management of testosterone hypokalemia: cont kdur 20 meq, well managed at this COPD: cont O2 supplementation steroids for lymphoma helping DVT prophylaxis: sc heparin, encourage ambulation full code
--- NOTE | 2018-05-30 08:25 | PN ---
Subjective - Subjective Reason for Note: Consultation Note History: ENDOCRINOLOGY CONSULTATION FOLLOW UP He again had nocturia x 1 and reduced thirst/polyuria during the day. His headache has improved to a 4/10. He has some more energy. He is more alert and able to comprehend his situation - when I first met him he was asking me to call his for details he is now able to recall. Active Problems: Active Problems Diabetes insipidus (Acute) E23.2 Hypernatremia (Acute) E87.0 Likely secondary to DI, patient has a long history of excessive thrist and urine output. Continue 1/2NS. Start Desmopressin in AM after fluids D/C'd. Low levels of other hormones produced in pituitary. 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 Current Medications: Current Medications Acetaminophen (Tylenol Tab*) 975 mg PO Q8H [facility] Last Admin: 05/30/18 01:45 Dose: 975 mg Albuterol (Ventolin Hfa Inhaler*) 1 puff INH Q6H PRN PRN Reason: SHORTNESS OF BREATH Last Admin: 05/24/18 23:52 Dose: 1 puff Albuterol/Ipratropium (Duoneb (Albuterol 2.5 Mg/Ipratropium 0.5 Mg)) 1 neb INH Q4H PRN PRN Reason: SOB/WHEEZING Allopurinol (Zyloprim Tab*) 300 mg PO DAILY [facility] Last Admin: 05/29/18 09:03 Dose: 300 mg Alprazolam (Xanax Tab*) 0.25 mg PO Q8H PRN PRN Reason: ANXIETY Last Admin: 05/25/18 11:09 Dose: 0.25 mg Amlodipine Besylate (Norvasc Tab*) 5 mg PO DAILY [facility] Last Admin: 05/29/18 09:03 Dose: 5 mg Baclofen (Lioresal Tab*) 5 mg PO BID PRN PRN Reason: SPASMS Desmopressin Acetate (Desmopressin Tab (Nf)) 0.1 mg PO BID [facility] Last Admin: 05/29/18 22:39 Dose: 0.1 mg Docusate Sodium (Colace Cap*) 200 mg PO BID [facility] Last Admin: 05/29/18 22:39 Dose: 200 mg Famotidine (Pepcid Tab*) 20 mg PO BID [facility]; Protocol Last Admin: 05/29/18 22:39 Dose: 20 mg Gabapentin (Neurontin Cap(*)) 300 mg PO QPM [facility] Last Admin: 05/29/18 17:26 Dose: 300 mg Guaifenesin (Mucinex*) 1,200 mg PO BID [facility] Last Admin: 05/29/18 22:39 Dose: 1,200 mg Heparin Sodium (Porcine) (Heparin Vial(*)) 5,000 units SUBCUT Q8HR [facility] Last Admin: 05/30/18 05:37 Dose: 5,000 units Heparin Sodium (Porcine) (Heparin Flush Port (Ivad)) 5 ml FLUSH DAILY [facility]; Protocol Last Admin: 05/29/18 09:03 Dose: Not Given Dexamethasone Sodium Phosphate (40 mg/ Sodium Chloride) 60 mls @ 210 mls/hr IVPB DAILY [facility] Stop: 05/31/18 10:59 Last Admin: 05/29/18 09:04 Dose: 210 mls/hr Levothyroxine Sodium (Synthroid Tab*) 50 mcg PO DAILY@0600 [facility] Last Admin: 05/30/18 05:36 Dose: 50 mcg Nortriptyline HCl (Pamelor Cap*) 10 mg PO BEDTIME [facility] Last Admin: 05/29/18 22:38 Dose: 10 mg Omeprazole (Prilosec Cap*) 40 mg PO DAILY@0730 [facility] Last Admin: 05/29/18 11:27 Dose: 40 mg Ondansetron HCl (Zofran Inj*) 4 mg IV Q6H PRN PRN Reason: NAUSEA Last Admin: 05/27/18 08:51 Dose: 4 mg Ondansetron HCl (Zofran Odt Tab*) 4 mg SL Q6H PRN PRN Reason: NAUSEA/VOMITING Oxycodone HCl (Oxycontin(*)) 30 mg PO Q12HR [facility] Last Admin: 05/29/18 22:38 Dose: 30 mg Oxycodone HCl (Roxycodone Tab*) 5 mg PO Q4H PRN PRN Reason: PAIN - BREAKTHROUGH Last Admin: 05/26/18 20:01 Dose: 5 mg Polyethylene Glycol/Electrolytes (Miralax*) 17 gm PO QPM [facility] Last Admin: 05/29/18 17:27 Dose: 17 gm Senna (Senokot Tab*) 1 tab PO BEDTIME PRN PRN Reason: CONSTIPATION Last Admin: 05/27/18 21:39 Dose: 1 tab Sodium Chloride (Sodium Chloride 0.65% Nasal [place]*) 2 spray BOTH NARES Q6H [facility] Last Admin: 05/30/18 06:04 Dose: 2 spray Zolpidem Tartrate (Ambien Tab*) 5 mg PO BEDTIME PRN PRN Reason: INSOMNIA Home Medications: Home Medications Medication Instructions Recorded Confirmed Type Baclofen TAB* [Lioresal TAB*] 5 mg PO BID PRN 09/01/17 05/22/18 History Butalb/Acetamin/Caff TAB* 1 tab PO BID PRN 09/01/17 05/22/18 History [Fioricet TAB*] Nortriptyline CAP* [Nortriptylline 10 mg PO BEDTIME 09/01/17 05/22/18 History CAP*] Omeprazole CAP* [Prilosec CAP* 20 40 mg PO DAILY@0730 #60 cap.dr 09/04/17 Rx MG] Acetaminophen TAB* [Tylenol TAB*] 650 mg PO Q6H PRN tab 02/15/18 05/22/18 Rx amLODIPine TAB* [Norvasc 5 mg TAB*] 10 mg PO DAILY #30 tab 02/15/18 05/22/18 Rx Albuterol HFA INHALER* [Ventolin 1 puff INH Q6H PRN 04/26/18 05/22/18 History HFA Inhaler*] Gabapentin CAP(*) [Neurontin 300 300 mg PO QPM 04/26/18 05/22/18 History CAP(*)] Ranitidine TAB (NF) [Zantac TAB 150 mg PO BID 04/26/18 05/22/18 History (NF)] oxyCODONE TAB* [Roxycodone TAB 5 5 mg PO BID PRN 04/26/18 05/22/18 History mg*] Oxycodone HCl/Acetaminophen 2 each PO Q6H PRN #40 tablet MDD 8 05/19/18 Rx [Endocet 10-325 mg Tablet] Saline NASAL SPRAY 0.65%* 2 spray BOTH NARES Q6HR PRN 05/24/18 05/24/18 History Allergies: Allergies Allergy/AdvReac Type Severity Reaction Status Date / Time budesonide [From Symbicort] Allergy Unknown Verified 05/22/18 19:20 Reaction Details cefuroxime [From Ceftin] Allergy Difficulty Verified 05/22/18 19:20 Breathing formoterol [From Symbicort] Allergy Unknown Verified 05/22/18 19:20 Reaction Details warfarin Allergy Unknown Verified 05/23/18 03:39 Reaction Details amoxicillin [From Augmentin] AdvReac GI Upset Verified 05/22/18 19:20 azithromycin AdvReac GI Upset Verified 05/23/18 03:39 clavulanic acid AdvReac GI Upset Verified 05/22/18 19:20 [From Augmentin] levofloxacin AdvReac Abdominal Verified 05/23/18 03:39 Pain meperidine [From Demerol] AdvReac Hallucinati Verified 05/23/18 03:39 ons Objective - Vital Signs Vital Signs: Vital Signs 05/29/18 05/29/18 05/29/18 09:01 11:07 15:27 Temperature 98.0 F 96.8 F Pulse Rate 79 86 Respiratory 20 20 18 Rate Blood Pressure 124/58 105/54 (mmHg) O2 Sat by Pulse 97 90 Oximetry 05/29/18 05/29/18 05/29/18 16:00 16:49 17:26 Temperature Pulse Rate Respiratory 18 Rate Blood Pressure (mmHg) O2 Sat by Pulse 99 99 Oximetry 05/29/18 05/29/18 05/29/18 19:31 20:00 22:38 Temperature 97.6 F Pulse Rate 79 Respiratory 18 18 18 Rate Blood Pressure 110/55 (mmHg) O2 Sat by Pulse 99 Oximetry 05/29/18 05/30/18 23:34 00:00 Temperature 97.8 F Pulse Rate 81 Respiratory 18 Rate Blood Pressure 125/62 (mmHg) O2 Sat by Pulse 97 97 Oximetry - Intake and Output Intake and Output: Intake & Output 05/27/18 05/28/18 05/29/18 05/30/18 11:59 11:59 11:59 11:59 Intake Total 1520 1700 910 606 Output Total 006 506 1496 665 Balance 745 800 -835 -59 Weight 146 lb 3.2 oz 145 lb 12.8 oz 146 lb 3.2 oz 152 lb 8 oz Intake: IV Fluids 980 700 30 D5W 1/2 NS 980 LR 700 NS 30 IVPB 100 106 NS 40 dexometh 60 106 Oral 540 900 910 470 Output: Urine 927 023 6198 665 Other: Estimated Void Medium Small Small Date of Last Bowel 05/19/18 Movement # Bowel Movements 0 0 1 0 Estimated Stool Amount Medium Small # Voids 2 1 1 0 ADLs: Meal Record Start: 05/23/18 05: 20 Freq: DAILY@0900,1400,1800 Status: Active Protocol: Created 05/23/18 05:20 System (Rec: 05/23/18 05:20 System MED-M11) Document 05/23/18 08:37 [id number] (Rec: 05/23/18 08:37 [id number] MED-C02) Document 05/23/18 13:42 [id number] (Rec: 05/23/18 13:43 [id number] MED-C09) Document 05/23/18 18:00 [id number] (Rec: 05/23/18 18:24 [id number] MED-C09) Document 05/24/18 09:00 [id number] (Rec: 05/24/18 09:31 [id number] MED-C11) Document 05/24/18 14:00 [id number] (Rec: 05/24/18 14:05 [id number] MED-C09) Document 05/24/18 18:00 [id number] (Rec: 05/24/18 20:19 [id number] MED-C16) Document 05/25/18 09:00 [id number] (Rec: 05/25/18 09:19 [id number] MED-C11) Document 05/25/18 13:57 [id number] (Rec: 05/25/18 14:00 [id number] MED-C11) Document 05/25/18 17:44 [id number] (Rec: 05/25/18 17:45 [id number] MED-C11) Document 05/26/18 09:00 [id number] (Rec: 05/26/18 09:30 [id number] MED-C13) Document 05/26/18 14:00 [id number] (Rec: 05/26/18 14:55 [id number] MED-C13) Document 05/26/18 17:39 [id number] (Rec: 05/26/18 17:39 [id number] MED-C09) Document 05/27/18 08:26 [id number] (Rec: 05/27/18 08:27 [id number] MED-C09) Document 05/27/18 13:52 [id number] (Rec: 05/27/18 14:03 [id number] MED-C11) Document 05/27/18 18:00 [id number] (Rec: 05/27/18 20:54 [id number] MED-C07) Document 05/28/18 09:00 [id number] (Rec: 05/28/18 10:52 [id number] MED-C09) Document 05/28/18 14:00 [id number] (Rec: 05/28/18 14:43 [id number] MED-C11) Document 05/28/18 18:00 [id number] (Rec: 05/28/18 18:27 [id number] MED-C11) Document 05/29/18 09:00 [id number] (Rec: 05/29/18 09:46 [id number] MED-C13) Document 05/29/18 13:23 [id number] (Rec: 05/29/18 13:24 VSH1101 MED-C09) Document 05/29/18 18:00 [id number] (Rec: 05/29/18 18:31 [id number] MED-C16) Intake and Output Start: 05/22/18 19: 19 Freq: Status: Active Protocol: Created 05/22/18 19:19 System (Rec: 05/22/18 19:19 System [id number]) Intake and Output Start: 05/23/18 05: 20 Freq: DAILY@0600,1400,2200 Status: Active Protocol: Created 05/23/18 05:20 System (Rec: 05/23/18 05:20 System MED-M11) Document 05/23/18 06:00 [id number] (Rec: 05/23/18 06:39 [id number] MED-C26) Document 05/23/18 09:43 [id number] (Rec: 05/23/18 09:43 [id number] MED-C09) Document 05/23/18 13:42 [id number] (Rec: 05/23/18 13:43 [id number] MED-C09) Document 05/23/18 14:32 [id number] (Rec: 05/23/18 14:33 [id number] MED-C09) Document 05/23/18 20:50 [id number] (Rec: 05/23/18 21:00 [id number] MED-C26) Document 05/24/18 04:14 [id number] (Rec: 05/24/18 04:14 [id number] MED-C26) Document 05/24/18 14:00 [id number] (Rec: 05/24/18 14:05 [id number] MED-C09) Document 05/24/18 21:32 [id number] (Rec: 05/24/18 21:34 [id number] MED-C16) Document 05/25/18 02:16 [id number] (Rec: 05/25/18 02:16 [id number] MED-C05) Document 05/25/18 02:39 [id number] (Rec: 05/25/18 02:39 [id number] MED-C09) Document 05/25/18 05:03 [id number] (Rec: 05/25/18 05:03 [id number] MED-C05) Document 05/25/18 05:20 [id number] (Rec: 05/25/18 05:22 [id number] MED-C11) Document 05/25/18 13:57 [id number] (Rec: 05/25/18 14:00 [id number] MED-C11) Document 05/25/18 22:00 [id number] (Rec: 05/25/18 22:09 [id number] MED-C11) Document 05/26/18 05:57 [id number] (Rec: 05/26/18 05:58 [id number] MED-C09) Document 05/26/18 14:00 [id number] (Rec: 05/26/18 14:55 [id number] MED-C13) Document 05/26/18 21:47 [id number] (Rec: 05/26/18 21:47 [id number] MED-M11) Document 05/26/18 22:00 [id number] (Rec: 05/26/18 22:25 [id number] MED-C09) Document 05/27/18 05:59 [id number] (Rec: 05/27/18 06:00 [id number] MED-C11) Document 05/27/18 13:52 [id number] (Rec: 05/27/18 14:03 [id number] MED-C11) Document 05/27/18 20:26 [id number] (Rec: 05/27/18 20:26 [id number] MED-C05) Document 05/27/18 22:00 [id number] (Rec: 05/27/18 22:08 [id number] MED-C07) Document 05/28/18 06:00 [id number] (Rec: 05/28/18 06:12 [id number] MED-C09) Document 05/28/18 14:00 [id number] (Rec: 05/28/18 14:43 [id number] MED-C11) Document 05/28/18 22:00 [id number] (Rec: 05/28/18 22:28 [id number] MED-C26) Document 05/29/18 04:44 [id number] (Rec: 05/29/18 04:44 [id number] MED-C26) Document 05/29/18 06:07 [id number] (Rec: 05/29/18 06:07 [id number] MED-C04) Document 05/29/18 13:37 [id number] (Rec: 05/29/18 13:44 [id number] MED-C13) Document 05/29/18 21:55 [id number] (Rec: 05/29/18 22:11 [id number] MED-C02) Document 05/30/18 02:00 [id number] (Rec: 05/30/18 02:16 [id number] MED-C07) Document 05/30/18 06:00 [id number] (Rec: 05/30/18 06:12 [id number] MED-C02) - Physical Exam General Physical Exam Comment: He is sitting comfortably in an arm chair - conversational and aware of his situation General: No Cyanosis, No Anemia, No Jaundice, No Clubbing Lungs and Chest: Yes: Chest Expansion Full, Chest Expansion Symetrica, Percussion Note Resonant, Vessicular Breath Sounds. No: Crackles, Wheezes Heart Rate and Rhythm: Regular Additional Cardiovascular: Yes: Normal Heart Sounds, Pedal Edema - trace. No: Heart Murmur Abdominal Exam: Yes: Soft. No: Distention, Abdominal Tenderness Results - Results Lab Results: Laboratory Results - last 24 hr 05/28/18 05/30/18 05/30/18 06:03 06:28 06:28 WBC 9.5 RBC 3.46 L Hgb 10.8 L Hct 32 L MCV 92 MCH 31 MCHC 34 RDW 15 Plt Count 382 MPV 6.7 L Neut % (Auto) 86.5 H Lymph % (Auto) 6.7 L [place] % (Auto) 6.8 Eos % (Auto) 0 Baso % (Auto) 0 Absolute Neuts (auto) 8.2 H Absolute Lymphs (auto) 0.6 L Absolute Monos (auto) 0.6 Absolute Eos (auto) 0 Absolute Basos (auto) 0 Absolute Nucleated RBC 0 Nucleated RBC % 0 Sodium 135 Potassium 4.1 Chloride 98 L Carbon Dioxide 35 H Anion Gap 2 BUN 12 Creatinine 0.56 L Est GFR ( Amer) 174.5 Est GFR (Non-Af Amer) 144.2 BUN/Creatinine Ratio 21.4 H Glucose 92 Calcium 8.0 L Magnesium 2.1 Total Bilirubin 0.30 AST 11 L ALT 11 Alkaline Phosphatase 91 Total Protein 5.3 L Albumin 2.5 L Globulin 2.8 Albumin/Globulin Ratio 0.9 L ACTH <5.0 L Assessment - Problem List Assessment: Patient Problems Diabetes insipidus (Acute) Hypernatremia (Acute) Hypokalemia (Acute) Hypothalamic mass (Acute) Large B-cell lymphoma (Acute) 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) Acute and chronic respiratory failure with hypercapnia (Acute) Anxiety (Acute) Chronic sinusitis (Acute) DVT prophylaxis (Acute) Epigastric abdominal pain of unknown etiology (Acute) Full code status (Acute) Hyponatremia (Acute) Insomnia (Acute) Leukocytosis (Acute) Nasal mass (Acute) Nausea & vomiting (Acute) Aortic root aneurysm (Chronic) COPD (chronic obstructive pulmonary disease) (Chronic) COPD exacerbation (Chronic) Chronic hypercapnic respiratory failure (Chronic) GERD (gastroesophageal reflux disease) (Chronic) HTN (hypertension) (Chronic) [place] lesion (Chronic) Plan: Diabetes insipidus (Acute) This is now well controlled by ddAVP 0.1 mg twice daily. I note that he has a trace of edema. I am not sure that I believe the reported weight gain (146 to 152 lbs in 24 hours), though he may retain fluid with the IV steroids. This should be watched. His I and O doesn't reflect this. Hypernatremia (Acute) no recurrence Hypokalemia (Acute) His potassium is on target Panhypopituitarism (Acute) I discussed with the patient the uncertainty of his anterior pituitary function - the difference between an acute phase reaction on the thyroid/gonadal axis and true hypothalamic/pituitary dysfunction. I will study this over time. At the moment, thyroid hormone replacement is warranted, I will hold testosterone. His growth hormone/prolactin and adrenal function seem normal Hypothalamic mass (Acute)Large B-cell lymphoma (Acute)Mass of sphenoid sinus ( Acute) I showed the patient on my laptop the normal anatomy (sagital/coronal) of the pituitary/sphenoid sinus using [employer] ([employer]viously [employer]). I then showed him his own MRI. He was interested to see this and asked some questions. I explained the endocrine aspects and he understands that he needs to watch his intake of water carefully as he is in the habit of drinking a lot to compensate for his diabetes insipidus.
[2018-05-30] MEDS: Dexamethasone IV* 40 MG in NS 0.9% 50 ML* 50 ML IVPB SCH (09:10)
[2018-05-30] MEDS: amLODIPine TAB* 5 MG PO SCH (09:11)
[2018-05-30] MEDS: guaiFENesin ER TAB 600 MG PO SCH ×2 (09:11→23:03)
[2018-05-30] MEDS: oxyCODONE SR TAB(*) 15 MG TAB.SR PO SCH ×2 (09:11→23:06)
[2018-05-30] MEDS: Docusate CAP* 100 MG PO SCH ×2 (09:12→23:01)
[2018-05-30] MEDS: Omeprazole CAP* 20 MG PO SCH (09:12)
[2018-05-30] MEDS: Allopurinol TAB* 300 MG PO SCH (09:12)
[2018-05-30] MEDS: Famotidine TAB* 20 MG PO SCH ×2 (09:12→23:05)
[2018-05-30] MEDS: Desmopressin TAB (NF) 0.1 MG TAB PO SCH ×2 (09:13→23:04)
[2018-05-30] MEDS: Gabapentin CAP(*) 300 MG PO SCH (17:55)
[2018-05-30] MEDS: Polyethylene Glycol 3350* 17 GM PACKET PO SCH (17:55)
[2018-05-30] MEDS: Nortriptyline CAP* 10 MG PO SCH (23:05)
[2018-05-31] MEDS: Saline NASAL SPRAY 0.65%* BTL BOTH NARES SCH ×5 (02:21→23:56)
[2018-05-31] MEDS: Levothyroxine TAB* 25 MCG TAB PO SCH (05:50)
[2018-05-31] MEDS: Heparin VIAL(*) 5000 UNITS/ML VIAL (FIVE THOUSAND) SUBCUT SCH ×3 (05:50→21:39)
[2018-05-31 07:14] LABS: ABS Basophils 0 10^3/ul (0-0.2); ABS Eosinophils 0 10^3/ul (0-0.6); ABS Lymphocytes 0.9 10^3/ul (1.0-4.8); ABS Monocytes 0.7 10^3/ul (0-0.8); ABS Neutrophils 10.1 10^3/ul (1.5-7.7); ABS Nucleated RBC 0 10^3/ul; Eosinophil % 0 % (0-6); Hematocrit 34 % (42-52); Hemoglobin 11.7 g/dl (14.0-18.0); Lymphocyte % 7.5 % (25-47); Mean Corpuscular HGB Conc 34 g/dl (31-36); Mean Corpuscular Hemoglobin 31 pg (27-31); Mean Corpuscular Volume 92 fL (80-94); Mean Platelet Volume 7.1 um3 (7.4-10.4); Nucleated Red Blood Cells % 0; Platelet Count 410 10^3/ul (150-450); Red Blood Count 3.71 10^6/ul (4.00-5.40); Red Cell Distribution Width 15 % (10.5-15); White Blood Count 11.7 10^3/ul (3.5-10.8)
[2018-05-31 07:29] LABS: EGFR Non-African American 160.7 (>60)
[2018-05-31] MEDS: guaiFENesin ER TAB 600 MG PO SCH ×2 (07:52→20:48)
[2018-05-31] MEDS: Omeprazole CAP* 20 MG PO SCH (07:52)
[2018-05-31] MEDS: oxyCODONE SR TAB(*) 15 MG TAB.SR PO SCH ×2 (07:52→20:49)
[2018-05-31] MEDS: Acetaminophen TAB* 325 MG PO SCH (07:53)
[2018-05-31] MEDS: Famotidine TAB* 20 MG PO SCH ×2 (07:54→20:48)
[2018-05-31] MEDS: Docusate CAP* 100 MG PO SCH ×2 (07:54→20:49)
[2018-05-31] MEDS: Allopurinol TAB* 300 MG PO SCH (07:54)
[2018-05-31] MEDS: Desmopressin TAB (NF) 0.1 MG TAB PO SCH ×2 (07:55→20:48)
[2018-05-31] MEDS: amLODIPine TAB* 5 MG PO SCH (07:55)
--- NOTE | 2018-05-31 09:16 | PN ---
Progress Note - Progress Note Date of Service: 05/31/18 SOAP: Subjective: []Feeling so-so, but no real specific complaints. Breathing is "about the same", though somewhat better with steroids. Had a soft BM this AM. Feels like his recall and memory are worse then they were before "all this." Does not feel confused. 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 Understands risks and benefits of chemo, aware of plan to start therapy today. Medications: Acetaminophen (Tylenol Tab*) 975 mg PO Q8H [facility] Last Admin: 05/31/18 07:53 Dose: 975 mg Albuterol (Ventolin Hfa Inhaler*) 1 puff INH Q6H PRN PRN Reason: SHORTNESS OF BREATH Last Admin: 05/24/18 23:52 Dose: 1 puff Albuterol/Ipratropium (Duoneb (Albuterol 2.5 Mg/Ipratropium 0.5 Mg)) 1 neb INH Q4H PRN PRN Reason: SOB/WHEEZING Allopurinol (Zyloprim Tab*) 300 mg PO DAILY [facility] Last Admin: 05/31/18 07:54 Dose: 300 mg Amlodipine Besylate (Norvasc Tab*) 5 mg PO DAILY [facility] Last Admin: 05/31/18 07:55 Dose: 5 mg Baclofen (Lioresal Tab*) 5 mg PO BID PRN PRN Reason: SPASMS Desmopressin Acetate (Desmopressin Tab (Nf)) 0.1 mg PO BID [facility] Last Admin: 05/31/18 07:55 Dose: 0.1 mg Docusate Sodium (Colace Cap*) 200 mg PO BID [facility] Last Admin: 05/31/18 07:54 Dose: 200 mg Famotidine (Pepcid Tab*) 20 mg PO BID [facility]; Protocol Last Admin: 05/31/18 07:54 Dose: 20 mg Gabapentin (Neurontin Cap(*)) 300 mg PO QPM [facility] Last Admin: 05/30/18 17:55 Dose: 300 mg Guaifenesin (Mucinex*) 1,200 mg PO BID [facility] Last Admin: 05/31/18 07:52 Dose: 1,200 mg Heparin Sodium (Porcine) (Heparin Vial(*)) 5,000 units SUBCUT Q8HR [facility] Last Admin: 05/31/18 05:50 Dose: 5,000 units Heparin Sodium (Porcine) (Heparin Flush Port (Ivad)) 5 ml FLUSH DAILY [facility]; Protocol Last Admin: 05/31/18 08:39 Dose: Not Given Levothyroxine Sodium (Synthroid Tab*) 50 mcg PO DAILY@0600 [facility] Last Admin: 05/31/18 05:50 Dose: 50 mcg Nortriptyline HCl (Pamelor Cap*) 10 mg PO BEDTIME [facility] Last Admin: 05/30/18 23:05 Dose: 10 mg Omeprazole (Prilosec Cap*) 40 mg PO DAILY@0730 [facility] Last Admin: 05/31/18 07:52 Dose: 40 mg Ondansetron HCl (Zofran Inj*) 4 mg IV Q6H PRN PRN Reason: NAUSEA Last Admin: 05/27/18 08:51 Dose: 4 mg Ondansetron HCl (Zofran Odt Tab*) 4 mg SL Q6H PRN PRN Reason: NAUSEA/VOMITING Oxycodone HCl (Oxycontin(*)) 30 mg PO Q12HR [facility] Last Admin: 05/31/18 07:52 Dose: 30 mg Oxycodone HCl (Roxycodone Tab*) 5 mg PO Q4H PRN PRN Reason: PAIN - BREAKTHROUGH Last Admin: 05/26/18 20:01 Dose: 5 mg Polyethylene Glycol/Electrolytes (Miralax*) 17 gm PO QPM [facility] Last Admin: 05/30/18 17:55 Dose: 17 gm Senna (Senokot Tab*) 1 tab PO BEDTIME PRN PRN Reason: CONSTIPATION Last Admin: 05/27/18 21:39 Dose: 1 tab Sodium Chloride (Sodium Chloride 0.65% Nasal [place]*) 2 spray BOTH NARES Q6H [facility] Last Admin: 05/31/18 06:03 Dose: 2 spray Objective: [] Vital Signs Temp Pulse Resp BP Pulse Ox 97.5 F 76 22 131/57 99 05/31/18 07:54 05/31/18 07:54 05/31/18 08:00 05/31/18 07:54 05/31/18 08:00 A&Ox3, EOMI, FONG, good strength=, neuro rossly non-focal HRR, S1S2 LS clear with poor resp. effort and slight tachypnea +BS, abd. soft and non-tender +pp=bilat., trace edema Port RCW site benign with mild bruising and minimal swelling Laboratory Results - last 24 hr 05/27/18 05/31/18 05/31/18 09:43 06:15 06:15 WBC 11.7 H RBC 3.71 L Hgb 11.7 L Hct 34 L MCV 92 MCH 31 MCHC 34 RDW 15 Plt Count 410 MPV 7.1 L Neut % (Auto) 86.6 H Lymph % (Auto) 7.5 L [place] % (Auto) 5.9 Eos % (Auto) 0 Baso % (Auto) 0 Absolute Neuts (auto) 10.1 H Absolute Lymphs (auto) 0.9 L Absolute Monos (auto) 0.7 Absolute Eos (auto) 0 Absolute Basos (auto) 0 Absolute Nucleated RBC 0 Nucleated RBC % 0 Sodium 131 L Potassium 4.0 Chloride 94 L Carbon Dioxide 33 H Anion Gap 4 BUN 10 Creatinine 0.51 L Est GFR ( Amer) 194.4 Est GFR (Non-Af Amer) 160.7 BUN/Creatinine Ratio 19.6 Glucose 80 Calcium 8.1 L Magnesium 2.1 Total Bilirubin 0.50 AST 15 ALT 13 Alkaline Phosphatase 94 Total Protein 5.5 L Albumin 2.7 L Globulin 2.8 Albumin/Globulin Ratio 1.0 Insulin-like GF I 25 L IGF I Z-Score -2.33 Assessment: []68 yo male with 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 Plan: []1. DLBCL: start da-REPOCH, C1D1 today (Khalif,ELIZABETH, et al. Blood 2002; 99:[id number]) - Rituximab 375 mg/m2 IV D1 - Etoposide 50 mg/m2/day, Doxorubicin 10 mg/m2/day, and Vincristine 0.4/m2/day D1-4 - Cyclophosphamide 750 mg/m2 IV D5 - Prednisone 60mg/m2 PO BID D1-5 - Neupogen 300 mcg Subq to start D6 - EF 65% via echo in January, Hep B negative - Start PCP Prophylaxis Bactrim DS 1 tab PO M,W,F - Plan IT Mtx. weekly x8, will discuss omaya port placement with neurosurgery 2. Pituitary Dysfunction: - managed by Dr. Hassan. Appreciate his expertise 3. COPD: - breathing has improved with steroids, will start steroid inhaler as well 4. Constipation: improved, change miralax to PRN again 5. Diet: advance as tolerated, clears for several days for unclear reasons Full Code
[2018-05-31] MEDS ORDERED: Acetaminophen TAB* 325 MG PO ONE (10:00)
[2018-05-31] MEDS ORDERED: diPHENhydraMINE IV* 50 MG/ML 1 ml VIAL (BENADRYL) IV ONE (10:00)
[2018-05-31] MEDS ORDERED: diPHENhydraMINE IV* 50 MG in PREMIX* 0 ML IV ONE (10:00)
[2018-05-31] MEDS: Dexamethasone IV* 40 MG in NS 0.9% 50 ML* 50 ML IVPB SCH (10:17)
[2018-05-31] MEDS ORDERED: Polyethylene Glycol 3350* 17 GM PACKET PO PRN (10:27)
[2018-05-31] MEDS ORDERED: RITUXIMAB IVPB ONE (10:30)
[2018-05-31] MEDS ORDERED: NS 0.9% IVPB ONE (10:30)
[2018-05-31] MEDS ORDERED: Famotidine IV* 10 MG/ML 2 ML (20 mg) ONE (12:23)
[2018-05-31] MEDS ORDERED: Prochlorperazine TAB* 10 MG PO PRN (12:59)
[2018-05-31] MEDS: Albuterol/Ipratropium NEB.SOL* Albuterol 2.5 MG/Ipratropium 0.5 MG 3 ML INH PRN (13:10)
[2018-05-31] MEDS ORDERED: predniSONE TAB* 50 MG PO ONE ×2 (13:30→17:00)
[2018-05-31] MEDS ORDERED: Meperidine Carpuject* 75 MG/ML CARPUJECT SYRINGE IV ONE (14:00)
[2018-05-31] MEDS ORDERED: Palonosetron* 0.25 MG in PREMIX* 0 ML IV ONE (16:00)
[2018-05-31] MEDS ORDERED: Fosaprepitant IV* 150 MG in NS 0.9% 250 ML* 145 ML IVPB ONE (16:00)
[2018-05-31] MEDS: oxyCODONE TAB* 5 MG TAB PO PRN (16:00)
[2018-05-31] MEDS: VINCRISTINE IVPB SCH (16:41)
[2018-05-31] MEDS: NS 0.9% IVPB SCH (16:41)
[2018-05-31] MEDS: DOXORUBICIN IVPB SCH (16:41)
[2018-05-31] MEDS: ETOPOSIDE IVPB SCH (16:41)
[2018-05-31] MEDS: Gabapentin CAP(*) 300 MG PO SCH (17:52)
[2018-05-31] MEDS: Mometasone/Formoter 200/5 MDI INH SCH (20:45)
[2018-05-31] MEDS: Nortriptyline CAP* 10 MG PO SCH (20:48)
[2018-05-31] MEDS: predniSONE TAB* 50 MG PO SCH (20:48)
[2018-06-01] MEDS: Heparin VIAL(*) 5000 UNITS/ML VIAL (FIVE THOUSAND) SUBCUT SCH ×3 (05:46→21:38)
[2018-06-01] MEDS: Levothyroxine TAB* 25 MCG TAB PO SCH (05:46)
[2018-06-01] MEDS: Saline NASAL SPRAY 0.65%* BTL BOTH NARES SCH ×4 (05:49→23:49)
[2018-06-01 06:05] LABS: ABS Basophils 0 10^3/ul (0-0.2); ABS Eosinophils 0 10^3/ul (0-0.6); ABS Lymphocytes 0.3 10^3/ul (1.0-4.8); ABS Monocytes 0.1 10^3/ul (0-0.8); ABS Neutrophils 15.7 10^3/ul (1.5-7.7); ABS Nucleated RBC 0 10^3/ul; Eosinophil % 0 % (0-6); Hematocrit 34 % (42-52); Hemoglobin 11.5 g/dl (14.0-18.0); Lymphocyte % 1.7 % (25-47); Mean Corpuscular HGB Conc 34 g/dl (31-36); Mean Corpuscular Hemoglobin 31 pg (27-31); Mean Corpuscular Volume 90 fL (80-94); Mean Platelet Volume 6.9 um3 (7.4-10.4); Nucleated Red Blood Cells % 0; Platelet Count 437 10^3/ul (150-450); Red Blood Count 3.75 10^6/ul (4.00-5.40); Red Cell Distribution Width 15 % (10.5-15); White Blood Count 16.1 10^3/ul (3.5-10.8)
[2018-06-01] MEDS: guaiFENesin ER TAB 600 MG PO SCH ×2 (07:40→20:56)
[2018-06-01] MEDS: Famotidine TAB* 20 MG PO SCH ×2 (07:41→20:56)
[2018-06-01] MEDS: Omeprazole CAP* 20 MG PO SCH (07:41)
[2018-06-01] MEDS: Docusate CAP* 100 MG PO SCH ×2 (07:41→20:56)
[2018-06-01] MEDS: Allopurinol TAB* 300 MG PO SCH (07:41)
[2018-06-01] MEDS: amLODIPine TAB* 5 MG PO SCH (07:42)
[2018-06-01] MEDS: Desmopressin TAB (NF) 0.1 MG TAB PO SCH (07:42)
[2018-06-01] MEDS: predniSONE TAB* 50 MG PO SCH ×2 (07:42→20:56)
[2018-06-01] MEDS: oxyCODONE SR TAB(*) 15 MG TAB.SR PO SCH ×2 (07:42→20:56)
--- NOTE | 2018-06-01 08:36 | PN ---
Subjective - Subjective Reason for Note: Consultation Note History: Endocrinology: His headache is better this morning. He has had no polydipsia or polyuria. His energy is improved. Active Problems: Active Problems Diabetes insipidus (Acute) E23.2 Hypernatremia (Acute) E87.0 Likely secondary to DI, patient has a long history of excessive thrist and urine output. Continue 1/2NS. Start Desmopressin in AM after fluids D/C'd. Low levels of other hormones produced in pituitary. 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 Current Medications: Current Medications Acetaminophen (Tylenol Tab*) 650 mg PO Q8H PRN PRN Reason: fever, HUERTA Albuterol (Ventolin Hfa Inhaler*) 1 puff INH Q6H PRN PRN Reason: SHORTNESS OF BREATH Last Admin: 05/24/18 23:52 Dose: 1 puff Albuterol/Ipratropium (Duoneb (Albuterol 2.5 Mg/Ipratropium 0.5 Mg)) 1 neb INH Q4H PRN PRN Reason: SOB/WHEEZING Last Admin: 05/31/18 13:10 Dose: 1 neb Allopurinol (Zyloprim Tab*) 300 mg PO DAILY [facility] Last Admin: 06/01/18 07:41 Dose: 300 mg Amlodipine Besylate (Norvasc Tab*) 5 mg PO DAILY [facility] Last Admin: 06/01/18 07:42 Dose: 5 mg Baclofen (Lioresal Tab*) 5 mg PO BID PRN PRN Reason: SPASMS Desmopressin Acetate (Desmopressin Tab (Nf)) 0.1 mg PO BID [facility] Last Admin: 06/01/18 07:42 Dose: 0.1 mg Docusate Sodium (Colace Cap*) 200 mg PO BID [facility] Last Admin: 06/01/18 07:41 Dose: 200 mg Famotidine (Pepcid Tab*) 20 mg PO BID [facility]; Protocol Last Admin: 06/01/18 07:41 Dose: 20 mg Gabapentin (Neurontin Cap(*)) 300 mg PO QPM [facility] Last Admin: 05/31/18 17:52 Dose: 300 mg Guaifenesin (Mucinex*) 1,200 mg PO BID [facility] Last Admin: 06/01/18 07:40 Dose: 1,200 mg Heparin Sodium (Porcine) (Heparin Vial(*)) 5,000 units SUBCUT Q8HR [facility] Last Admin: 06/01/18 05:46 Dose: 5,000 units Heparin Sodium (Porcine) (Heparin Flush Port (Ivad)) 5 ml FLUSH DAILY [facility]; Protocol Last Admin: 05/31/18 08:39 Dose: Not Given Doxorubicin HCl 18 mg/Etoposide 90 mg/ Vincristine Sulfate 0.7 mg/ Sodium Chloride 514.2 mls @ 21.425 mls/hr IVPB DAILY@1630 [facility] Stop: 06/04/18 16:29 Last Admin: 05/31/18 16:41 Dose: 21.425 mls/hr Palonosetron 0.25 mg/ IV (Solution) 5 mls @ 150 mls/hr IV ONCE ONE Stop: 06/03/18 15:01 Cyclophosphamide 1,000 mg/Cyclophosphamide 320 mg/Sodium Chloride 566 mls @ 566 mls/hr IVPB ONCE ONE Stop: 06/04/18 15:59 Levothyroxine Sodium (Synthroid Tab*) 50 mcg PO DAILY@0600 [facility] Last Admin: 06/01/18 05:46 Dose: 50 mcg Mometasone Furoate/Formoterol Fumar (Dulera 200/5 Mdi*) 2 puff INH BID [facility] Last Admin: 05/31/18 20:45 Dose: 2 puff Nortriptyline HCl (Pamelor Cap*) 10 mg PO BEDTIME [facility] Last Admin: 05/31/18 20:48 Dose: 10 mg Omeprazole (Prilosec Cap*) 40 mg PO DAILY@0730 [facility] Last Admin: 06/01/18 07:41 Dose: 40 mg Ondansetron HCl (Zofran Inj*) 4 mg IV Q6H PRN PRN Reason: NAUSEA Last Admin: 05/27/18 08:51 Dose: 4 mg Ondansetron HCl (Zofran Odt Tab*) 4 mg SL Q6H PRN PRN Reason: NAUSEA/VOMITING Oxycodone HCl (Oxycontin(*)) 30 mg PO Q12HR [facility] Last Admin: 06/01/18 07:42 Dose: 30 mg Oxycodone HCl (Roxycodone Tab*) 5 mg PO Q4H PRN PRN Reason: PAIN - BREAKTHROUGH Last Admin: 05/31/18 16:00 Dose: 5 mg Polyethylene Glycol/Electrolytes (Miralax*) 17 gm PO QPM PRN PRN Reason: CONSTIPATION Prednisone (Deltasone Tab*) 100 mg PO BID [facility] Stop: 06/04/18 21:01 Last Admin: 06/01/18 07:42 Dose: 100 mg Prochlorperazine (Compazine Tab*) 10 mg PO Q6H PRN PRN Reason: NAUSEA/VOMITING Senna (Senokot Tab*) 1 tab PO BEDTIME PRN PRN Reason: CONSTIPATION Last Admin: 05/27/18 21:39 Dose: 1 tab Sodium Chloride (Sodium Chloride 0.65% Nasal [place]*) 2 spray BOTH NARES Q6H [facility] Last Admin: 06/01/18 05:49 Dose: 2 spray Trimethoprim/Sulfamethoxazole (Bactrim Ds 800/160 Tab*) 1 tab PO MoWeFr [facility] Home Medications: Home Medications Medication Instructions Recorded Confirmed Type Baclofen TAB* [Lioresal TAB*] 5 mg PO BID PRN 09/01/17 05/22/18 History Butalb/Acetamin/Caff TAB* 1 tab PO BID PRN 09/01/17 05/22/18 History [Fioricet TAB*] Nortriptyline CAP* [Nortriptylline 10 mg PO BEDTIME 09/01/17 05/22/18 History CAP*] Omeprazole CAP* [Prilosec CAP* 20 40 mg PO DAILY@0730 #60 cap. 09/04/17 Rx MG] Acetaminophen TAB* [Tylenol TAB*] 650 mg PO Q6H PRN tab 02/15/18 05/22/18 Rx amLODIPine TAB* [Norvasc 5 mg TAB*] 10 mg PO DAILY #30 tab 02/15/18 05/22/18 Rx Albuterol HFA INHALER* [Ventolin 1 puff INH Q6H PRN 04/26/18 05/22/18 History HFA Inhaler*] Gabapentin CAP(*) [Neurontin 300 300 mg PO QPM 04/26/18 05/22/18 History CAP(*)] Ranitidine TAB (NF) [Zantac TAB 150 mg PO BID 04/26/18 05/22/18 History (NF)] oxyCODONE TAB* [Roxycodone TAB 5 5 mg PO BID PRN 04/26/18 05/22/18 History mg*] Oxycodone HCl/Acetaminophen 2 each PO Q6H PRN #40 tablet MDD 8 05/19/18 Rx [Endocet 10-325 mg Tablet] Saline NASAL SPRAY 0.65%* 2 spray BOTH NARES Q6HR PRN 05/24/18 05/24/18 History Allergies: Allergies Allergy/AdvReac Type Severity Reaction Status Date / Time budesonide [From Symbicort] Allergy Unknown Verified 05/22/18 19:20 Reaction Details cefuroxime [From Ceftin] Allergy Difficulty Verified 05/22/18 19:20 Breathing formoterol [From Symbicort] Allergy Unknown Verified 05/22/18 19:20 Reaction Details warfarin Allergy Unknown Verified 05/23/18 03:39 Reaction Details amoxicillin [From Augmentin] AdvReac GI Upset Verified 05/22/18 19:20 azithromycin AdvReac GI Upset Verified 05/23/18 03:39 clavulanic acid AdvReac GI Upset Verified 05/22/18 19:20 [From Augmentin] levofloxacin AdvReac Abdominal Verified 05/23/18 03:39 Pain meperidine [From Demerol] AdvReac Hallucinati Verified 05/23/18 03:39 ons Objective - Vital Signs Vital Signs: Vital Signs 05/31/18 05/31/18 05/31/18 10:05 11:00 11:04 Temperature 97.3 F Pulse Rate 78 Respiratory 18 20 18 Rate Blood Pressure 123/58 (mmHg) O2 Sat by Pulse 100 Oximetry 05/31/18 05/31/18 05/31/18 11:27 11:30 11:31 Temperature Pulse Rate 79 78 Respiratory Rate Blood Pressure 132/64 (mmHg) O2 Sat by Pulse 96 96 Oximetry 05/31/18 05/31/18 05/31/18 11:33 11:45 12:00 Temperature Pulse Rate 74 72 72 Respiratory Rate Blood Pressure 126/64 (mmHg) O2 Sat by Pulse 96 91 91 Oximetry 05/31/18 05/31/18 05/31/18 12:03 12:04 12:15 Temperature Pulse Rate 70 66 Respiratory Rate Blood Pressure 114/62 123/57 (mmHg) O2 Sat by Pulse Oximetry 05/31/18 05/31/18 05/31/18 12:16 12:20 12:21 Temperature Pulse Rate Respiratory Rate Blood Pressure 127/69 133/62 132/63 (mmHg) O2 Sat by Pulse Oximetry 05/31/18 05/31/18 05/31/18 12:31 12:33 13:03 Temperature Pulse Rate Respiratory Rate Blood Pressure 125/60 128/63 (mmHg) O2 Sat by Pulse 96 Oximetry 05/31/18 05/31/18 05/31/18 13:07 13:33 14:03 Temperature Pulse Rate 78 Respiratory 20 Rate Blood Pressure 131/62 136/68 (mmHg) O2 Sat by Pulse 98 Oximetry 05/31/18 05/31/18 05/31/18 14:25 15:35 16:00 Temperature 98.8 F Pulse Rate 88 74 Respiratory 18 22 Rate Blood Pressure 129/71 (mmHg) O2 Sat by Pulse 96 95 Oximetry 05/31/18 05/31/18 05/31/18 16:15 16:36 17:52 Temperature 97.5 F Pulse Rate 80 Respiratory 20 24 Rate Blood Pressure 115/56 (mmHg) O2 Sat by Pulse 96 100 Oximetry 05/31/18 05/31/18 05/31/18 18:03 19:17 20:00 Temperature 97.6 F Pulse Rate 69 Respiratory 18 20 19 Rate Blood Pressure 121/57 (mmHg) O2 Sat by Pulse 100 Oximetry 05/31/18 05/31/18 05/31/18 20:49 20:50 20:55 Temperature Pulse Rate 70 Respiratory 20 20 20 Rate Blood Pressure (mmHg) O2 Sat by Pulse 97 Oximetry 05/31/18 05/31/18 06/01/18 23:42 23:45 03:43 Temperature 97.3 F 97.5 F Pulse Rate 72 69 Respiratory 20 16 Rate Blood Pressure 109/63 115/57 (mmHg) O2 Sat by Pulse 99 99 100 Oximetry 06/01/18 06/01/18 07:42 08:00 Temperature 97.4 F Pulse Rate Respiratory 16 Rate Blood Pressure (mmHg) O2 Sat by Pulse Oximetry - Intake and Output Intake and Output: Intake & Output 05/29/18 05/30/18 05/31/18 08/14/18 11:59 11:59 11:59 11:59 Intake Total 910 726 965 902 Output Total 1745 909 978 7911 Balance -835 -139 90 -423 Weight 146 lb 3.2 oz 152 lb 8 oz 152 lb 9.6 oz 155 lb 9.6 oz Intake: IV Fluids 30 25 297 NS 30 25 dexometh 297 IVPB 106 60 dexometh 106 60 Oral 910 590 880 605 Output: Urine 1745 831 694 6703 Other: Estimated Void Small Small Large # Bowel Movements 1 1 1 0 Estimated Stool Amount Medium Medium Medium # Voids 1 0 1 ADLs: Meal Record Start: 05/23/18 05: 20 Freq: DAILY@0900,1400,1800 Status: Active Protocol: Created 05/23/18 05:20 System (Rec: 05/23/18 05:20 System MED-M11) Document 05/23/18 08:37 [id number] (Rec: 05/23/18 08:37 [id number] MED-C02) Document 05/23/18 13:42 [id number] (Rec: 05/23/18 13:43 [id number] MED-C09) Document 05/23/18 18:00 [id number] (Rec: 05/23/18 18:24 [id number] MED-C09) Document 05/24/18 09:00 [id number] (Rec: 05/24/18 09:31 [id number] MED-C11) Document 05/24/18 14:00 [id number] (Rec: 05/24/18 14:05 ROQ0169 MED-C09) Document 05/24/18 18:00 [id number] (Rec: 05/24/18 20:19 [id number] MED-C16) Document 05/25/18 09:00 [id number] (Rec: 05/25/18 09:19 ITQ2516 MED-C11) Document 05/25/18 13:57 [id number] (Rec: 05/25/18 14:00 [id number] MED-C11) Document 05/25/18 17:44 [id number] (Rec: 05/25/18 17:45 [id number] MED-C11) Document 05/26/18 09:00 [id number] (Rec: 05/26/18 09:30 [id number] MED-C13) Document 05/26/18 14:00 SQV5886 (Rec: 05/26/18 14:55 JRY1018 MED-C13) Document 05/26/18 17:39 POA6354 (Rec: 05/26/18 17:39 [id number] MED-C09) Document 05/27/18 08:26 PMO3244 (Rec: 05/27/18 08:27 [id number] MED-C09) Document 05/27/18 13:52 [id number] (Rec: 05/27/18 14:03 PGO5765 MED-C11) Document 05/27/18 18:00 WNX6932 (Rec: 05/27/18 20:54 JWW0616 MED-C07) Document 05/28/18 09:00 [id number] (Rec: 05/28/18 10:52 [id number] MED-C09) Document 05/28/18 14:00 HUL3251 (Rec: 05/28/18 14:43 ZIP7337 MED-C11) Document 05/28/18 18:00 [id number] (Rec: 05/28/18 18:27 [id number] MED-C11) Document 05/29/18 09:00 NJF9008 (Rec: 05/29/18 09:46 KSC5580 MED-C13) Document 05/29/18 13:23 SFU3321 (Rec: 05/29/18 13:24 TRY6598 MED-C09) Document 05/29/18 18:00 TDT9098 (Rec: 05/29/18 18:31 KRT5404 MED-C16) Document 05/30/18 09:00 KMD3144 (Rec: 05/30/18 10:43 RDJ2083 MED-C13) Document 05/30/18 12:59 FIA4595 (Rec: 05/30/18 12:59 IAW2750 MED-C13) Document 05/30/18 18:00 FZD5395 (Rec: 05/30/18 18:27 [id number] MED-C13) Document 05/31/18 09:00 CMM3473 (Rec: 05/31/18 09:36 JHJ4076 MED-C09) Document 05/31/18 14:00 NGL0059 (Rec: 05/31/18 14:02 [id number] MED-C11) Document 05/31/18 18:00 [id number] (Rec: 05/31/18 18:31 [id number] MED-C09) Intake and Output Start: 05/22/18 19: 19 Freq: Status: Active Protocol: Created 05/22/18 19:19 System (Rec: 05/22/18 19:19 System [id number]) Intake and Output Start: 05/23/18 05: 20 Freq: DAILY@0600,1400,2200 Status: Active Protocol: Created 05/23/18 05:20 System (Rec: 05/23/18 05:20 System MED-M11) Document 05/23/18 06:00 [id number] (Rec: 05/23/18 06:39 [id number] MED-C26) Document 05/23/18 09:43 MWA1657 (Rec: 05/23/18 09:43 COW1882 MED-C09) Document 05/23/18 13:42 [id number] (Rec: 05/23/18 13:43 HQC1062 MED-C09) Document 05/23/18 14:32 RYU6599 (Rec: 05/23/18 14:33 MQV2109 MED-C09) Document 05/23/18 20:50 YEO0635 (Rec: 05/23/18 21:00 [id number] MED-C26) Document 05/24/18 04:14 WMF2555 (Rec: 05/24/18 04:14 OXS0800 MED-C26) Document 05/24/18 14:00 WCM6034 (Rec: 05/24/18 14:05 [id number] MED-C09) Document 05/24/18 21:32 ECH0157 (Rec: 05/24/18 21:34 HHI2286 MED-C16) Document 05/25/18 02:16 [id number] (Rec: 05/25/18 02:16 MRJ3959 MED-C05) Document 05/25/18 02:39 [id number] (Rec: 05/25/18 02:39 VRA2521 MED-C09) Document 05/25/18 05:03 NYY6102 (Rec: 05/25/18 05:03 ZYG0138 MED-C05) Document 05/25/18 05:20 [id number] (Rec: 05/25/18 05:22 [id number] MED-C11) Document 05/25/18 13:57 AVE4260 (Rec: 05/25/18 14:00 VUQ7253 MED-C11) Document 05/25/18 22:00 WKX5212 (Rec: 05/25/18 22:09 [id number] MED-C11) Document 05/26/18 05:57 [id number] (Rec: 05/26/18 05:58 QPO9348 MED-C09) Document 05/26/18 14:00 VJF1651 (Rec: 05/26/18 14:55 UOG9581 MED-C13) Document 05/26/18 21:47 VMT9158 (Rec: 05/26/18 21:47 [id number] MED-M11) Document 05/26/18 22:00 [id number] (Rec: 05/26/18 22:25 [id number] MED-C09) Document 05/27/18 05:59 DSP4052 (Rec: 05/27/18 06:00 LZL4514 MED-C11) Document 05/27/18 13:52 OLE5680 (Rec: 05/27/18 14:03 [id number] MED-C11) Document 05/27/18 20:26 SIC6457 (Rec: 05/27/18 20:26 [id number] MED-C05) Document 05/27/18 22:00 OHY6631 (Rec: 05/27/18 22:08 [id number] MED-C07) Document 05/28/18 06:00 GYF5793 (Rec: 05/28/18 06:12 YLB7441 MED-C09) Document 05/28/18 14:00 NWE8883 (Rec: 05/28/18 14:43 HSS6220 MED-C11) Document 05/28/18 22:00 HQT3139 (Rec: 05/28/18 22:28 DXT9263 MED-C26) Document 05/29/18 04:44 TOW8358 (Rec: 05/29/18 04:44 ZOK0738 MED-C26) Document 05/29/18 06:07 PSL8274 (Rec: 05/29/18 06:07 [id number] MED-C04) Document 05/29/18 13:37 PNE0712 (Rec: 05/29/18 13:44 [id number] MED-C13) Document 05/29/18 21:55 YIY0007 (Rec: 05/29/18 22:11 RGX0142 MED-C02) Document 05/30/18 02:00 HYI6532 (Rec: 05/30/18 02:16 WCU9090 MED-C07) Document 05/30/18 06:00 UIG4894 (Rec: 05/30/18 06:12 PIG6839 MED-C02) Document 05/30/18 13:54 MPI5334 (Rec: 05/30/18 13:55 BML0434 MED-C13) Document 05/30/18 22:00 GMX1000 (Rec: 05/31/18 00:14 INI8139 MED-C13) Document 05/31/18 05:27 IPK5556 (Rec: 05/31/18 05:27 AYP7183 MED-M21) Document 05/31/18 05:33 [id number] (Rec: 05/31/18 05:33 WYC5475 MED-C09) Document 05/31/18 14:00 NVV5242 (Rec: 05/31/18 14:02 [id number] MED-C11) Document 05/31/18 19:37 FPR4214 (Rec: 05/31/18 19:37 CEV2545 MED-C42) Document 05/31/18 21:02 RCB1353 (Rec: 05/31/18 21:03 GZL3409 MED-M21) Document 05/31/18 22:00 [id number] (Rec: 05/31/18 23:00 UPX1086 MED-M20) Document 06/01/18 04:27 [id number] (Rec: 06/01/18 04:27 [id number] MED-C12) Results - Results Lab Results: Laboratory Results - last 24 hr 05/27/18 06/01/18 06/01/18 13:50 05:51 05:51 WBC 16.1 H RBC 3.75 L Hgb 11.5 L Hct 34 L MCV 90 MCH 31 MCHC 34 RDW 15 Plt Count 437 MPV 6.9 L Neut % (Auto) 97.3 H Lymph % (Auto) 1.7 L [place] % (Auto) 0.9 Eos % (Auto) 0 Baso % (Auto) 0.1 Absolute Neuts (auto) 15.7 H Absolute Lymphs (auto) 0.3 L Absolute Monos (auto) 0.1 Absolute Eos (auto) 0 Absolute Basos (auto) 0 Absolute Nucleated RBC 0 Nucleated RBC % 0 Sodium 125 L Potassium 3.8 Chloride 93 L Carbon Dioxide 28 Anion Gap 4 BUN 7 Creatinine 0.42 L Est GFR ( Amer) 243.2 Est GFR (Non-Af Amer) 201.0 BUN/Creatinine Ratio 16.7 Glucose 118 H Calcium 7.6 L Total Bilirubin 0.50 AST 13 ALT 15 Alkaline Phosphatase 86 Total Protein 5.2 L Albumin 2.6 L Globulin 2.6 Albumin/Globulin Ratio 1.0 Flow Intrp 2-8 Markers tnp Flow Intrp 9-15 Marker Flow Intrp 16+ Markers tnp Assessment - Problem List Assessment: Patient Problems Diabetes insipidus (Acute) Hypernatremia (Acute) Hypokalemia (Acute) Hypothalamic mass (Acute) Large B-cell lymphoma (Acute) 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) Acute and chronic respiratory failure with hypercapnia (Acute) Anxiety (Acute) Chronic sinusitis (Acute) DVT prophylaxis (Acute) Epigastric abdominal pain of unknown etiology (Acute) Full code status (Acute) Hyponatremia (Acute) Insomnia (Acute) Leukocytosis (Acute) Nasal mass (Acute) Nausea & vomiting (Acute) Aortic root aneurysm (Chronic) COPD (chronic obstructive pulmonary disease) (Chronic) COPD exacerbation (Chronic) Chronic hypercapnic respiratory failure (Chronic) GERD (gastroesophageal reflux disease) (Chronic) HTN (hypertension) (Chronic) Pontine lesion (Chronic) Plan: Diabetes insipidus (Acute) Interestingly his sodium is now low. Either, his ddAVP is too high a dose, or he has had some recovery of his posterior pituitary function with the high doses of steroids. I will cut back his desmopressin to just one per day in the evening. Panhypopituitarism - he has more energy and is feeling better Hypokalemia (Acute) this is resolved Hypothalamic mass (Acute)Large B-cell lymphoma (Acute)Mass of sphenoid sinus ( Acute) Per oncology. I note his headache is improved and his appetite has returned.
[2018-06-01] MEDS: Mometasone/Formoter 200/5 MDI INH SCH ×2 (08:46→21:17)
[2018-06-01] MEDS: oxyCODONE TAB* 5 MG TAB PO PRN ×2 (10:26→15:02)
[2018-06-01] MEDS: Acetaminophen TAB* 325 MG PO PRN (13:36)
[2018-06-01] MEDS: VINCRISTINE IVPB SCH (15:53)
[2018-06-01] MEDS: DOXORUBICIN IVPB SCH (15:53)
[2018-06-01] MEDS: NS 0.9% IVPB SCH (15:53)
[2018-06-01] MEDS: ETOPOSIDE IVPB SCH (15:53)
--- NOTE | 2018-06-01 17:09 | PN ---
Progress Note - Progress Note Date of Service: 06/01/18 SOAP: Subjective: [Headache nearly resolved. Energy improving. Polyuria/polydipsia improved. Breathing stable.] Objective: [ Laboratory Results - last 24 hr 06/01/18 06/01/18 05:51 05:51 WBC 16.1 H RBC 3.75 L Hgb 11.5 L Hct 34 L MCV 90 MCH 31 MCHC 34 RDW 15 Plt Count 437 MPV 6.9 L Neut % (Auto) 97.3 H Lymph % (Auto) 1.7 L [place] % (Auto) 0.9 Eos % (Auto) 0 Baso % (Auto) 0.1 Absolute Neuts (auto) 15.7 H Absolute Lymphs (auto) 0.3 L Absolute Monos (auto) 0.1 Absolute Eos (auto) 0 Absolute Basos (auto) 0 Absolute Nucleated RBC 0 Nucleated RBC % 0 Sodium 125 L Potassium 3.8 Chloride 93 L Carbon Dioxide 28 Anion Gap 4 BUN 7 Creatinine 0.42 L Est GFR ( Amer) 243.2 Est GFR (Non-Af Amer) 201.0 BUN/Creatinine Ratio 16.7 Glucose 118 H Calcium 7.6 L Total Bilirubin 0.50 AST 13 ALT 15 Alkaline Phosphatase 86 Total Protein 5.2 L Albumin 2.6 L Globulin 2.6 Albumin/Globulin Ratio 1.0 Vital Signs Temp Pulse Resp BP Pulse Ox 98.2 F 80 18 115/62 97 06/01/18 15:08 06/01/18 15:08 06/01/18 17:01 06/01/18 15:08 06/01/18 15:08 Acetaminophen (Tylenol Tab*) 650 mg PO Q8H PRN PRN Reason: fever, HUERTA Last Admin: 06/01/18 13:36 Dose: 650 mg Albuterol (Ventolin Hfa Inhaler*) 1 puff INH Q6H PRN PRN Reason: SHORTNESS OF BREATH Last Admin: 05/24/18 23:52 Dose: 1 puff Albuterol/Ipratropium (Duoneb (Albuterol 2.5 Mg/Ipratropium 0.5 Mg)) 1 neb INH Q4H PRN PRN Reason: SOB/WHEEZING Last Admin: 05/31/18 13:10 Dose: 1 neb Allopurinol (Zyloprim Tab*) 300 mg PO DAILY [facility] Last Admin: 06/01/18 07:41 Dose: 300 mg Amlodipine Besylate (Norvasc Tab*) 5 mg PO DAILY [facility] Last Admin: 06/01/18 07:42 Dose: 5 mg Baclofen (Lioresal Tab*) 5 mg PO BID PRN PRN Reason: SPASMS Desmopressin Acetate (Desmopressin Tab (Nf)) 0.1 mg PO BEDTIME [facility] Docusate Sodium (Colace Cap*) 200 mg PO BID [facility] Last Admin: 06/01/18 07:41 Dose: 200 mg Famotidine (Pepcid Tab*) 20 mg PO BID [facility]; Protocol Last Admin: 06/01/18 07:41 Dose: 20 mg Gabapentin (Neurontin Cap(*)) 300 mg PO QPM [facility] Last Admin: 05/31/18 17:52 Dose: 300 mg Guaifenesin (Mucinex*) 1,200 mg PO BID [facility] Last Admin: 06/01/18 07:40 Dose: 1,200 mg Heparin Sodium (Porcine) (Heparin Vial(*)) 5,000 units SUBCUT Q8HR [facility] Last Admin: 06/01/18 13:35 Dose: 5,000 units Heparin Sodium (Porcine) (Heparin Flush Port (Ivad)) 5 ml FLUSH DAILY [facility]; Protocol Last Admin: 06/01/18 09:14 Dose: Not Given Doxorubicin HCl 18 mg/Etoposide 90 mg/ Vincristine Sulfate 0.7 mg/ Sodium Chloride 514.2 mls @ 21.425 mls/hr IVPB DAILY@1630 [facility] Stop: 06/04/18 16:29 Last Admin: 06/01/18 15:53 Dose: 21.425 mls/hr Palonosetron 0.25 mg/ IV (Solution) 5 mls @ 150 mls/hr IV ONCE ONE Stop: 06/03/18 15:01 Cyclophosphamide 1,000 mg/Cyclophosphamide 320 mg/Sodium Chloride 566 mls @ 566 mls/hr IVPB ONCE ONE Stop: 06/04/18 15:59 Levothyroxine Sodium (Synthroid Tab*) 50 mcg PO DAILY@0600 [facility] Last Admin: 06/01/18 05:46 Dose: 50 mcg Mometasone Furoate/Formoterol Fumar (Dulera 200/5 Mdi*) 2 puff INH BID [facility] Last Admin: 06/01/18 08:46 Dose: 2 puff Nortriptyline HCl (Pamelor Cap*) 10 mg PO BEDTIME [facility] Last Admin: 05/31/18 20:48 Dose: 10 mg Omeprazole (Prilosec Cap*) 40 mg PO DAILY@0730 [facility] Last Admin: 06/01/18 07:41 Dose: 40 mg Ondansetron HCl (Zofran Inj*) 4 mg IV Q6H PRN PRN Reason: NAUSEA Last Admin: 05/27/18 08:51 Dose: 4 mg Ondansetron HCl (Zofran Odt Tab*) 4 mg SL Q6H PRN PRN Reason: NAUSEA/VOMITING Oxycodone HCl (Oxycontin(*)) 30 mg PO Q12HR [facility] Last Admin: 06/01/18 07:42 Dose: 30 mg Oxycodone HCl (Roxycodone Tab*) 5 mg PO Q4H PRN PRN Reason: PAIN - BREAKTHROUGH Last Admin: 06/01/18 15:02 Dose: 5 mg Polyethylene Glycol/Electrolytes (Miralax*) 17 gm PO QPM PRN PRN Reason: CONSTIPATION Prednisone (Deltasone Tab*) 100 mg PO BID [facility] Stop: 06/04/18 21:01 Last Admin: 06/01/18 07:42 Dose: 100 mg Prochlorperazine (Compazine Tab*) 10 mg PO Q6H PRN PRN Reason: NAUSEA/VOMITING Senna (Senokot Tab*) 1 tab PO BEDTIME PRN PRN Reason: CONSTIPATION Last Admin: 05/27/18 21:39 Dose: 1 tab Sodium Chloride (Sodium Chloride 0.65% Nasal [place]*) 2 spray BOTH NARES Q6H [facility] Last Admin: 06/01/18 11:51 Dose: 2 spray Trimethoprim/Sulfamethoxazole (Bactrim Ds 800/160 Tab*) 1 tab PO MoWeFr [facility] Exam: Gen: Ill appearing, but greatly improved affect in NAD HEENT: no thrush CV: RRR Resp: reduced breath sounds, but CTA Abd: soft, nonTTP Ext: No edema Skin: No rash] [Assessment: []68 yo male with 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 Plan: []1. DLBCL: cont da-REPOCH, C1D2 today (ELIZABETH Cuadra, et al. Blood 2002; [id number]) - Rituximab 375 mg/m2 IV D1 - Etoposide 50 mg/m2/day, Doxorubicin 10 mg/m2/day, and Vincristine 0.4/m2/day D1-4 - Cyclophosphamide 750 mg/m2 IV D5 - Prednisone 60mg/m2 PO BID D1-5 - Neupogen 300 mcg Subq to start D6 - EF 65% via echo in January, Hep B negative - Start PCP Prophylaxis Bactrim DS 1 tab PO M,W,F - Plan IT Mtx. weekly x8, discussed ommaya port placement with neurosurgery ( plan for sometime this week) 2. Pituitary Dysfunction: - managed by Dr. Hassan. - noted hyponatremia and decreased DDAVP - consultation greatly appreciated 3. COPD: - stable, no acute exacerbation 4. Severe protein calorie malnutrition 5. N/v secondary to COMPENSATION ADVISOR involvement of lymphoma
[2018-06-01] MEDS: Gabapentin CAP(*) 300 MG PO SCH (17:36)
[2018-06-01] MEDS: Nortriptyline CAP* 10 MG PO SCH (20:56)
[2018-06-01] MEDS ORDERED: Desmopressin TAB (NF) 0.1 MG TAB PO SCH (21:00)
[2018-06-02] MEDS: Levothyroxine TAB* 25 MCG TAB PO SCH (05:32)
[2018-06-02] MEDS: Saline NASAL SPRAY 0.65%* BTL BOTH NARES SCH ×3 (05:34→16:15)
[2018-06-02] MEDS: Heparin VIAL(*) 5000 UNITS/ML VIAL (FIVE THOUSAND) SUBCUT SCH ×2 (05:34→16:12)
[2018-06-02 05:38] LABS: ABS Basophils 0 10^3/ul (0-0.2); ABS Eosinophils 0 10^3/ul (0-0.6); ABS Lymphocytes 0.3 10^3/ul (1.0-4.8); ABS Monocytes 0.5 10^3/ul (0-0.8); ABS Neutrophils 16.5 10^3/ul (1.5-7.7); ABS Nucleated RBC 0 10^3/ul; Eosinophil % 0 % (0-6); Hematocrit 35 % (42-52); Lymphocyte % 1.6 % (25-47); Mean Corpuscular HGB Conc 34 g/dl (31-36); Mean Corpuscular Hemoglobin 31 pg (27-31); Mean Corpuscular Volume 90 fL (80-94); Mean Platelet Volume 6.3 um3 (7.4-10.4); Nucleated Red Blood Cells % 0; Platelet Count 474 10^3/ul (150-450); Red Blood Count 3.92 10^6/ul (4.00-5.40); Red Cell Distribution Width 15 % (10.5-15); White Blood Count 17.3 10^3/ul (3.5-10.8)
[2018-06-02 05:54] LABS: EGFR Non-African American 195.6 (>60)
[2018-06-02] MEDS: Mometasone/Formoter 200/5 MDI INH SCH ×2 (08:21→21:27)
[2018-06-02] MEDS: Docusate CAP* 100 MG PO SCH ×2 (09:06→19:52)
[2018-06-02] MEDS: predniSONE TAB* 50 MG PO SCH ×2 (09:06→19:53)
[2018-06-02] MEDS: Famotidine TAB* 20 MG PO SCH ×2 (09:07→19:54)
[2018-06-02] MEDS: Allopurinol TAB* 300 MG PO SCH (09:07)
[2018-06-02] MEDS: oxyCODONE SR TAB(*) 15 MG TAB.SR PO SCH ×2 (09:07→19:53)
[2018-06-02] MEDS: amLODIPine TAB* 5 MG PO SCH (09:07)
[2018-06-02] MEDS: guaiFENesin ER TAB 600 MG PO SCH ×2 (09:07→19:52)
[2018-06-02] MEDS: Omeprazole CAP* 20 MG PO SCH ×3 (09:13→09:15)
[2018-06-02] MEDS: Sulfamethox/Trimethoprim DS 800/160* TAB PO SCH (10:30)
[2018-06-02] MEDS ORDERED: Buffered Lidocaine 0.9% SYRIN* 5 ML/SYR SYRINGE INTRADERM PRN (11:00)
--- NOTE | 2018-06-02 12:51 | PN ---
Progress Note - Progress Note Date of Service: 06/02/18 SOAP: Subjective: [Reports that he is doing well today. No new complaints. Does report that his sense of thirst and urination increased overnight. He received bad news last night that his brother in law unexpectedly from a traumatic brain injury.] Objective: [ Vital Signs Temp Pulse Resp BP Pulse Ox 97.7 F 83 18 132/48 97 06/02/18 07:31 06/02/18 08:23 06/02/18 09:07 06/02/18 07:31 06/02/18 08:23 Acetaminophen (Tylenol Tab*) 650 mg PO Q8H PRN PRN Reason: fever, HUERTA Last Admin: 06/01/18 13:36 Dose: 650 mg Albuterol (Ventolin Hfa Inhaler*) 1 puff INH Q6H PRN PRN Reason: SHORTNESS OF BREATH Last Admin: 05/24/18 23:52 Dose: 1 puff Albuterol/Ipratropium (Duoneb (Albuterol 2.5 Mg/Ipratropium 0.5 Mg)) 1 neb INH Q4H PRN PRN Reason: SOB/WHEEZING Last Admin: 05/31/18 13:10 Dose: 1 neb Allopurinol (Zyloprim Tab*) 300 mg PO DAILY [facility] Last Admin: 06/02/18 09:07 Dose: 300 mg Amlodipine Besylate (Norvasc Tab*) 5 mg PO DAILY [facility] Last Admin: 06/02/18 09:07 Dose: 5 mg Baclofen (Lioresal Tab*) 5 mg PO BID PRN PRN Reason: SPASMS Desmopressin Acetate (Desmopressin Tab (Nf)) 0.1 mg PO BEDTIME [facility] Docusate Sodium (Colace Cap*) 200 mg PO BID [facility] Last Admin: 06/02/18 09:06 Dose: 200 mg Famotidine (Pepcid Tab*) 20 mg PO BID [facility]; Protocol Last Admin: 06/02/18 09:07 Dose: 20 mg Gabapentin (Neurontin Cap(*)) 300 mg PO QPM [facility] Last Admin: 06/01/18 17:36 Dose: 300 mg Guaifenesin (Mucinex*) 1,200 mg PO BID [facility] Last Admin: 06/02/18 09:07 Dose: 1,200 mg Heparin Sodium (Porcine) (Heparin Vial(*)) 5,000 units SUBCUT Q8HR [facility] Last Admin: 06/02/18 05:34 Dose: 5,000 units Heparin Sodium (Porcine) (Heparin Flush Port (Ivad)) 5 ml FLUSH DAILY [facility]; Protocol Last Admin: 06/02/18 11:52 Dose: Not Given Doxorubicin HCl 18 mg/Etoposide 90 mg/ Vincristine Sulfate 0.7 mg/ Sodium Chloride 514.2 mls @ 21.425 mls/hr IVPB DAILY@1630 [facility] Stop: 06/04/18 16:29 Last Admin: 06/01/18 15:53 Dose: 21.425 mls/hr Palonosetron 0.25 mg/ IV (Solution) 5 mls @ 150 mls/hr IV ONCE ONE Stop: 06/03/18 15:01 Cyclophosphamide 1,000 mg/Cyclophosphamide 320 mg/Sodium Chloride 566 mls @ 566 mls/hr IVPB ONCE ONE Stop: 06/04/18 15:59 Lactated Ringer's (Lactated Ringers 1000 Ml Bag*) 1,000 mls @ 125 mls/hr IV PER RATE [facility] Levothyroxine Sodium (Synthroid Tab*) 50 mcg PO DAILY@0600 [facility] Last Admin: 06/02/18 05:32 Dose: 50 mcg Lidocaine/Sodium Bicarbonate (Buffered Lidocaine 0.9% Syrin*) 0.2 ml INTRADERM ONCE PRN PRN Reason: IF NEEDED FOR IV INSERTION Stop: 06/03/18 12:00 Mometasone Furoate/Formoterol Fumar (Dulera 200/5 Mdi*) 2 puff INH BID [facility] Last Admin: 06/02/18 08:21 Dose: 2 puff Nortriptyline HCl (Pamelor Cap*) 10 mg PO BEDTIME [facility] Last Admin: 06/01/18 20:56 Dose: 10 mg Omeprazole (Prilosec Cap*) 40 mg PO DAILY@0730 [facility] Last Admin: 06/02/18 09:15 Dose: 40 mg Ondansetron HCl (Zofran Inj*) 4 mg IV Q6H PRN PRN Reason: NAUSEA Last Admin: 05/27/18 08:51 Dose: 4 mg Ondansetron HCl (Zofran Odt Tab*) 4 mg SL Q6H PRN PRN Reason: NAUSEA/VOMITING Oxycodone HCl (Oxycontin(*)) 30 mg PO Q12HR [facility] Last Admin: 06/02/18 09:07 Dose: 30 mg Oxycodone HCl (Roxycodone Tab*) 5 mg PO Q4H PRN PRN Reason: PAIN - BREAKTHROUGH Last Admin: 06/01/18 15:02 Dose: 5 mg Polyethylene Glycol/Electrolytes (Miralax*) 17 gm PO QPM PRN PRN Reason: CONSTIPATION Prednisone (Deltasone Tab*) 100 mg PO BID [facility] Stop: 06/04/18 21:01 Last Admin: 06/02/18 09:06 Dose: 100 mg Prochlorperazine (Compazine Tab*) 10 mg PO Q6H PRN PRN Reason: NAUSEA/VOMITING Senna (Senokot Tab*) 1 tab PO BEDTIME PRN PRN Reason: CONSTIPATION Last Admin: 05/27/18 21:39 Dose: 1 tab Sodium Chloride (Sodium Chloride 0.65% Nasal [place]*) 2 spray BOTH NARES Q6H [facility] Last Admin: 06/02/18 05:34 Dose: 2 spray Trimethoprim/Sulfamethoxazole (Bactrim Ds 800/160 Tab*) 1 tab PO MoWeFr [facility] Last Admin: 06/02/18 10:30 Dose: 1 tab Laboratory Results - last 24 hr 06/02/18 06/02/18 05:31 05:31 WBC 17.3 H RBC 3.92 L Hgb 12.0 L Hct 35 L MCV 90 MCH 31 MCHC 34 RDW 15 Plt Count 474 H MPV 6.3 L Neut % (Auto) 95.3 H Lymph % (Auto) 1.6 L [place] % (Auto) 2.9 Eos % (Auto) 0 Baso % (Auto) 0.2 Absolute Neuts (auto) 16.5 H Absolute Lymphs (auto) 0.3 L Absolute Monos (auto) 0.5 Absolute Eos (auto) 0 Absolute Basos (auto) 0 Absolute Nucleated RBC 0 Nucleated RBC % 0 Sodium 134 L D Potassium 3.7 Chloride 100 L Carbon Dioxide 30 Anion Gap 4 BUN 6 Creatinine 0.43 L Est GFR ( Amer) 236.7 Est GFR (Non-Af Amer) 195.6 BUN/Creatinine Ratio 14.0 Glucose 124 H Calcium 8.1 L Total Bilirubin 0.50 AST 13 ALT 15 Alkaline Phosphatase 84 Total Protein 5.2 L Albumin 2.7 L Globulin 2.5 Albumin/Globulin Ratio 1.1 Exam: Gen: Ill appearing, but greatly improved affect in NAD HEENT: no thrush CV: RRR Resp: reduced breath sounds, but CTA Abd: soft, nonTTP Ext: No edema Skin: No rash] [Assessment: []68 yo male with 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 Plan: []1. DLBCL: cont da-REPOCH, C1D3 today (Khalif,WH, et al. Blood 2002; [id number]) - Rituximab 375 mg/m2 IV D1 - Etoposide 50 mg/m2/day, Doxorubicin 10 mg/m2/day, and Vincristine 0.4/m2/day D1-4 - Cyclophosphamide 750 mg/m2 IV D5 - Prednisone 60mg/m2 PO BID D1-5 - Neupogen 300 mcg Subq to start D6 - EF 65% via echo in January, Hep B negative - PCP Prophylaxis Bactrim DS 1 tab PO M,W,F - Plan IT Mtx. weekly x8 - Ommaya port placement with neurosurgery (Dimopoulous) tomorrow - NPO after midnight with CT brain in AM 2. Pituitary Dysfunction: - managed by Dr. Hassan. - sodium nl today, increased thirst and urination today - cont to follow - consultation greatly appreciated 3. COPD: - stable, no acute exacerbation 4. Severe protein calorie malnutrition 5. N/v secondary to IRRIGATION DISTRICT MANAGER involvement of lymphoma
[2018-06-02] MEDS: ETOPOSIDE IVPB SCH (15:42)
[2018-06-02] MEDS: DOXORUBICIN IVPB SCH (15:42)
[2018-06-02] MEDS: NS 0.9% IVPB SCH (15:42)
[2018-06-02] MEDS: VINCRISTINE IVPB SCH (15:42)
[2018-06-02] MEDS: Gabapentin CAP(*) 300 MG PO SCH (16:13)
[2018-06-02] MEDS: Albuterol/Ipratropium NEB.SOL* Albuterol 2.5 MG/Ipratropium 0.5 MG 3 ML INH PRN (18:07)
[2018-06-02] MEDS: Nortriptyline CAP* 10 MG PO SCH (19:52)
[2018-06-02] MEDS ORDERED: CMCS: Desmopressin TAB (NF) 0.1 MG TAB PO SCH (21:00)
[2018-06-02] MEDS ORDERED: LORazepam TAB(*) 1 MG PO ONE (23:49)
[2018-06-03] MEDS: Acetaminophen TAB* 325 MG PO PRN (00:39)
[2018-06-03] MEDS: Heparin VIAL(*) 5000 UNITS/ML VIAL (FIVE THOUSAND) SUBCUT SCH ×4 (00:41→21:31)
[2018-06-03] MEDS: Saline NASAL SPRAY 0.65%* BTL BOTH NARES SCH ×4 (00:42→17:59)
--- NOTE | 2018-06-03 03:20 | CONS ---
CONSULTATION REPORT: DATE OF CONSULT: DATE OF DICTATION: 06/02/2018. HISTORY OF PRESENT ILLNESS: The patient is a very pleasant 68-year-old gentleman who was diagnosed with a sphenoid sinus lesion which in pathology examination revealed a large B-cell lymphoma. The patient underwent sphenoid sinus biopsy and MRI revealed involvement of the pituitary stalk and was requested to the patient by Dr. Smart for placement of Ommaya reservoir. The patient reports that he had some mild anxiety and shortness of breath after hearing the news of his [id number] passing away 2 days ago from a traumatic brain injury after reportedly fall from stairs. He reports that he has no vision difficulties, he has no speech difficulties. He denies any hearing difficulties. He denies any seizures. He reports that he does have some difficulty with his memory. He denies any weakness, numbness or tingling of extremities. He reports that he is able to ambulate with some slow pace and moderate difficulty. He denies any urinary or GI incontinence. His perianal sensation intact. The patient is retired, used to work in different occupations including [employer] and [employer] business. He is and lives with his and they have 5 children. PAST MEDICAL HISTORY: The patient has a history of, 1. Lymphoma. 2. COPD. 3. Emphysema. 4. GERD. PAST SURGICAL HISTORY: 1. Biopsy of his sphenoid mass. 2. Appendectomy. ALLERGIES: BUDESONIDE, CEFUROXIME, FORMOTEROL, WARFARIN, AMOXICILLIN, AZITHROMYCIN, CLAVULANIC ACID, LEVOFLOXACIN, MEPERIDINE. FAMILY HISTORY: CAD, colonic cancer, lymphoma, brain tumor. SOCIAL HISTORY: Tobacco negative. He quit smoking in 2018. Alcohol occasionally. Recreational drug use negative. PHYSICAL EXAM: The patient is awake and alert, oriented x3. His pupils are equal and reactive. The cranial nerves II trough XII intact. Motor 4 to 5/10 in lower extremities. No pronator drift. The patient has fine tremor in his upper extremities. Sensory grossly intact to light touch. Deep tendon reflexes +1 bilaterally. No clonus or Babinski. Barker is negative. DIAGNOSTIC STUDIES/LAB DATA: The patient had an MRI of his brain revealing sphenoid mass with involvement of the pituitary stalk. ASSESSMENT: The patient is a very pleasant 68-year-old gentleman with diagnosis of sphenoid lesion and B-cell lymphoma. PLAN: We discussed with the patient about possible need for IT therapy and need for placement of Ommaya reservoir, as requested by the oncology team. He understood the indications, expectations, risks, possible complications of the procedure with complications included but not limited to bleeding, infection, risk of injury to the adjacent structures, paralysis, , need for additional procedure, anesthesia risk, stroke, blindness, cancer, instability, hardware failure, need for permanent CSF diversion, misplacement of catheter, need to remove or replace the catheter, anesthesia risk. The patient understood that his condition may not improve and in fact might get worse after surgery and that he may need to have additional procedure in the future. He understood that the operative plan might be modified according to intraoperative findings and conditions and that the procedure may be aborted if the ventricular system could not be cannulated. We will schedule the patient for surgical intervention. The patient will be kept n.p.o. after midnight. We will obtain CT scan of the brain in the morning and consider administration of FFP as his recent INR is 1.3. Thank you for allowing us to participate in the care of this patient. Please do not hesitate to contact our office in case you have any further questions or concerns regarding the care of this patient. [id number]/[facility] #: [id number] ROGER
[2018-06-03] MEDS: Levothyroxine TAB* 25 MCG TAB PO SCH (05:30)
[2018-06-03] MEDS: Omeprazole CAP* 20 MG PO SCH (05:30)
[2018-06-03 06:39] LABS: ABS Basophils 0 10^3/ul (0-0.2); ABS Eosinophils 0 10^3/ul (0-0.6); ABS Lymphocytes 0.2 10^3/ul (1.0-4.8); ABS Monocytes 0.5 10^3/ul (0-0.8); ABS Neutrophils 15.8 10^3/ul (1.5-7.7); ABS Nucleated RBC 0 10^3/ul; Eosinophil % 0 % (0-6); Hematocrit 35 % (42-52); Hemoglobin 11.9 g/dl (14.0-18.0); Mean Corpuscular HGB Conc 34 g/dl (31-36); Mean Corpuscular Hemoglobin 31 pg (27-31); Mean Corpuscular Volume 91 fL (80-94); Mean Platelet Volume 6.4 um3 (7.4-10.4); Nucleated Red Blood Cells % 0; Platelet Count 504 10^3/ul (150-450); Red Blood Count 3.84 10^6/ul (4.00-5.40); Red Cell Distribution Width 15 % (10.5-15); White Blood Count 16.5 10^3/ul (3.5-10.8)
[2018-06-03 06:53] LABS: INR 0.94 (0.77-1.02)
[2018-06-03 07:01] LABS: EGFR Non-African American 206.7 (>60)
[2018-06-03] MEDS: Mometasone/Formoter 200/5 MDI INH SCH ×2 (08:37→20:47)
[2018-06-03] MEDS: Docusate CAP* 100 MG PO SCH ×2 (09:08→21:34)
[2018-06-03] MEDS: guaiFENesin ER TAB 600 MG PO SCH ×2 (09:08→21:35)
[2018-06-03] MEDS: Allopurinol TAB* 300 MG PO SCH (09:08)
[2018-06-03] MEDS: oxyCODONE SR TAB(*) 15 MG TAB.SR PO SCH ×2 (09:10→21:33)
[2018-06-03] MEDS: predniSONE TAB* 50 MG PO SCH ×2 (09:21→22:39)
[2018-06-03] MEDS: amLODIPine TAB* 5 MG PO SCH (09:21)
[2018-06-03] MEDS: Famotidine TAB* 20 MG PO SCH ×2 (09:21→21:35)
[2018-06-03] MEDS ORDERED: Sugammadex * 200 MG/2 ML VIAL IV PUSH ONE ×2 (09:24→14:24)
[2018-06-03] MEDS ORDERED: fentaNYL* 50 MCG/ML 5 ML VIAL (250 MCG VIAL) ONE (10:41)
[2018-06-03] MEDS ORDERED: Rocuronium* 10 MG/ML VIAL ONE (10:41)
[2018-06-03] MEDS ORDERED: Midazolam* 1 MG/ML 2 ML VIAL (2 MG) ONE (10:42)
[2018-06-03] MEDS ORDERED: Vancomycin(*) 1,000 MG in NS 0.9% 250 ML* 250 ML IVPB ONE (12:00)
--- NOTE | 2018-06-03 12:53 | RAD ---
Indication: Sinus tumor. CT of the brain performed without IV contrast. Ventricular structures are midline. No midline shift is noted. The extra-axial spaces are unremarkable. There is no definite intracranial mass or hemorrhage. There is opacification and bony destruction of the posterior ethmoid air cells and sphenoid sinuses. There is likely erosions of the sphenoid bone. IMPRESSION: No definite intracranial mass or hemorrhage is noted. Again noted is a mass in the sphenoid sinuses extending to the ethmoid air cells. Bony erosion of the sinuses and greater wing of the sphenoid.
[2018-06-03] MEDS ORDERED: Propofol* 10 MG/ML 20 ML BTL IV PUSH ONE (13:34)
[2018-06-03] MEDS ORDERED: Lidocaine 2% PF * 5 ML VIAL ONE (13:34)
[2018-06-03] MEDS ORDERED: Phenylephrine INJ* 10 MG/ML 1 ML VIAL (10 MG) ONE (13:34)
[2018-06-03] MEDS ORDERED: oxyCODONE/Acetamin 5/325 MG* TAB PO PRN (13:52)
[2018-06-03] MEDS ORDERED: Naloxone* 0.4 MG/ML 1 ML VIAL IV PRN (13:52)
[2018-06-03] MEDS ORDERED: Acetaminophen TAB* 325 MG PO PRN (13:52)
[2018-06-03] MEDS ORDERED: Ondansetron INJ* 2 MG/ML VIAL IV PRN (13:52)
[2018-06-03] MEDS ORDERED: fentaNYL* 50 MCG/ML 2 ML VIAL (100 MCG VIAL) IV PRN (13:52)
[2018-06-03] MEDS ORDERED: DiMENhydriNATE IV* 50 MG/ML VIAL IV PUSH PRN (13:52)
[2018-06-03] MEDS ORDERED: Ondansetron INJ* 2 MG/ML VIAL ONE (14:25)
[2018-06-03] MEDS ORDERED: Palonosetron* 0.25 MG in PREMIX* 0 ML IV ONE (15:00)
[2018-06-03] MEDS: CMCS:Desmopressin TAB (NF) 0.1 MG TAB PO SCH ×2 (17:04→22:36)
[2018-06-03] MEDS: DOXORUBICIN IVPB SCH (17:47)
[2018-06-03] MEDS: NS 0.9% IVPB SCH (17:47)
[2018-06-03] MEDS: ETOPOSIDE IVPB SCH (17:47)
[2018-06-03] MEDS: VINCRISTINE IVPB SCH (17:47)
[2018-06-03] MEDS: Gabapentin CAP(*) 300 MG PO SCH (17:57)
--- NOTE | 2018-06-03 17:57 | PN ---
Progress Note - Progress Note Date of Service: 06/03/18 SOAP: Subjective: [Ommaya port placed today. Doing very well post procedure. No c/o HUERTA or nausea. Repeat CT pending for later this evening.] Objective: [ Laboratory Results - last 24 hr 06/03/18 06/03/18 06/03/18 06:15 06:15 06:15 WBC 16.5 H RBC 3.84 L Hgb 11.9 L Hct 35 L MCV 91 MCH 31 MCHC 34 RDW 15 Plt Count 504 H MPV 6.4 L Neut % (Auto) 96.0 H Lymph % (Auto) 1.0 L [place] % (Auto) 2.9 Eos % (Auto) 0 Baso % (Auto) 0.1 Absolute Neuts (auto) 15.8 H Absolute Lymphs (auto) 0.2 L Absolute Monos (auto) 0.5 Absolute Eos (auto) 0 Absolute Basos (auto) 0 Absolute Nucleated RBC 0 Nucleated RBC % 0 INR (Anticoag Therapy) 0.94 APTT 38.6 H Sodium 137 Potassium 3.6 Chloride 100 L Carbon Dioxide 31 Anion Gap 6 BUN 5 L Creatinine 0.41 L Est GFR ( Amer) 250.1 Est GFR (Non-Af Amer) 206.7 BUN/Creatinine Ratio 12.2 Glucose 114 H POC Glucose (mg/dL) Calcium 8.0 L Total Bilirubin 0.50 AST 15 ALT 18 Alkaline Phosphatase 83 Total Protein 5.4 L Albumin 2.8 L Globulin 2.6 Albumin/Globulin Ratio 1.1 Blood Type Antibody Screen 06/03/18 06/03/18 06:15 06:28 WBC RBC Hgb Hct MCV MCH MCHC RDW Plt Count MPV Neut % (Auto) Lymph % (Auto) [place] % (Auto) Eos % (Auto) Baso % (Auto) Absolute Neuts (auto) Absolute Lymphs (auto) Absolute Monos (auto) Absolute Eos (auto) Absolute Basos (auto) Absolute Nucleated RBC Nucleated RBC % INR (Anticoag Therapy) APTT Sodium Potassium Chloride Carbon Dioxide Anion Gap BUN Creatinine Est GFR ( Amer) Est GFR (Non-Af Amer) BUN/Creatinine Ratio Glucose POC Glucose (mg/dL) 132 H Calcium Total Bilirubin AST ALT Alkaline Phosphatase Total Protein Albumin Globulin Albumin/Globulin Ratio Blood Type AB Positive Antibody Screen Negative Acetaminophen (Tylenol Tab*) 650 mg PO Q8H PRN PRN Reason: fever, HUERTA Last Admin: 06/03/18 00:39 Dose: 650 mg Acetaminophen (Tylenol Tab*) 650 mg PO ONCE PRN PRN Reason: PAIN - MILD Albuterol (Ventolin Hfa Inhaler*) 1 puff INH Q6H PRN PRN Reason: SHORTNESS OF BREATH Last Admin: 05/24/18 23:52 Dose: 1 puff Albuterol/Ipratropium (Duoneb (Albuterol 2.5 Mg/Ipratropium 0.5 Mg)) 1 neb INH Q4H PRN PRN Reason: SOB/WHEEZING Last Admin: 06/02/18 18:07 Dose: 1 neb Allopurinol (Zyloprim Tab*) 300 mg PO DAILY [facility] Last Admin: 06/03/18 09:08 Dose: Not Given Amlodipine Besylate (Norvasc Tab*) 5 mg PO DAILY [facility] Last Admin: 06/03/18 09:21 Dose: 5 mg Baclofen (Lioresal Tab*) 5 mg PO BID PRN PRN Reason: SPASMS Desmopressin Acetate (Desmopressin Tab (Nf)) 0.1 mg PO BID [facility] Last Admin: 06/03/18 17:04 Dose: 0.1 mg Dimenhydrinate (Dramamine Iv*) 25 mg IV PUSH ONCE PRN PRN Reason: NAUSEA/VOMITING Docusate Sodium (Colace Cap*) 200 mg PO BID [facility] Last Admin: 06/03/18 09:08 Dose: Not Given Famotidine (Pepcid Tab*) 20 mg PO BID [facility]; Protocol Last Admin: 06/03/18 09:21 Dose: 20 mg Fentanyl Citrate (Fentanyl*) 25 mcg IV Q2M PRN PRN Reason: PAIN - MODERATE Gabapentin (Neurontin Cap(*)) 300 mg PO QPM [facility] Last Admin: 06/02/18 16:13 Dose: 300 mg Guaifenesin (Mucinex*) 1,200 mg PO BID [facility] Last Admin: 06/03/18 09:08 Dose: Not Given Heparin Sodium (Porcine) (Heparin Vial(*)) 5,000 units SUBCUT Q8HR [facility] Last Admin: 06/03/18 17:04 Dose: 5,000 units Heparin Sodium (Porcine) (Heparin Flush Port (Ivad)) 5 ml FLUSH DAILY [facility]; Protocol Last Admin: 06/03/18 09:22 Dose: 5 ml Doxorubicin HCl 18 mg/Etoposide 90 mg/ Vincristine Sulfate 0.7 mg/ Sodium Chloride 514.2 mls @ 21.425 mls/hr IVPB DAILY@1630 [facility] Stop: 06/04/18 16:29 Last Admin: 06/03/18 17:47 Dose: 21.425 mls/hr Cyclophosphamide 1,000 mg/Cyclophosphamide 320 mg/Sodium Chloride 566 mls @ 566 mls/hr IVPB ONCE ONE Stop: 06/04/18 15:59 Lactated Ringer's (Lactated Ringers 1000 Ml Bag*) 1,000 mls @ 125 mls/hr IV PER RATE [facility] Levothyroxine Sodium (Synthroid Tab*) 50 mcg PO DAILY@0600 [facility] Last Admin: 06/03/18 05:30 Dose: 50 mcg Mometasone Furoate/Formoterol Fumar (Dulera 200/5 Mdi*) 2 puff INH BID [facility] Last Admin: 06/03/18 08:37 Dose: 2 puff Naloxone HCl (Narcan*) 0.08 mg IV Q2M PRN PRN Reason: severe induced resp depression Nortriptyline HCl (Pamelor Cap*) 10 mg PO BEDTIME [facility] Last Admin: 06/02/18 19:52 Dose: 10 mg Omeprazole (Prilosec Cap*) 40 mg PO DAILY@0730 [facility] Last Admin: 06/03/18 05:30 Dose: 40 mg Ondansetron HCl (Zofran Inj*) 4 mg IV Q6H PRN PRN Reason: NAUSEA Last Admin: 05/27/18 08:51 Dose: 4 mg Ondansetron HCl (Zofran Odt Tab*) 4 mg SL Q6H PRN PRN Reason: NAUSEA/VOMITING Ondansetron HCl (Zofran Inj*) 4 mg IV ONCE PRN PRN Reason: NAUSEA/VOMITING Oxycodone HCl (Oxycontin(*)) 30 mg PO Q12HR [facility] Last Admin: 06/03/18 09:10 Dose: Not Given Oxycodone HCl (Roxycodone Tab*) 5 mg PO Q4H PRN PRN Reason: PAIN - BREAKTHROUGH Last Admin: 06/01/18 15:02 Dose: 5 mg Oxycodone/Acetaminophen (Percocet 5/325 Tab*) 1 tab PO ONCE PRN PRN Reason: PAIN - MODERATE Polyethylene Glycol/Electrolytes (Miralax*) 17 gm PO QPM PRN PRN Reason: CONSTIPATION Prednisone (Deltasone Tab*) 100 mg PO BID [facility] Stop: 06/04/18 21:01 Last Admin: 06/03/18 09:21 Dose: 100 mg Prochlorperazine (Compazine Tab*) 10 mg PO Q6H PRN PRN Reason: NAUSEA/VOMITING Senna (Senokot Tab*) 1 tab PO BEDTIME PRN PRN Reason: CONSTIPATION Last Admin: 05/27/18 21:39 Dose: 1 tab Sodium Chloride (Sodium Chloride 0.65% Nasal [place]*) 2 spray BOTH NARES Q6H [facility] Last Admin: 06/03/18 10:55 Dose: Not Given Trimethoprim/Sulfamethoxazole (Bactrim Ds 800/160 Tab*) 1 tab PO MoWeFr [facility] Last Admin: 06/02/18 10:30 Dose: 1 tab Vital Signs: Temp Pulse Resp BP Pulse Ox 99.1 F 110 16 133/70 100 06/03/18 14:55 06/03/18 16:00 06/03/18 16:00 06/03/18 16:00 06/03/18 16:00 Exam: Gen: Ill appearing, but greatly improved affect in NAD HEENT: partially shaved head with clean dressing over R frontal region, no thrush CV: RRR Resp: reduced breath sounds, but CTA Abd: soft, nonTTP Ext: No edema Skin: No rash] [Assessment: []68 yo male with 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 Now s/p ommaya port placement. Plan: []1. DLBCL: cont da-REPOCH, C1D3 today (Khalif,WH, et al. Blood 2002; 99:2685) - Rituximab 375 mg/m2 IV D1 - Etoposide 50 mg/m2/day, Doxorubicin 10 mg/m2/day, and Vincristine 0.4/m2/day D1-4 - Cyclophosphamide 750 mg/m2 IV D5 - Prednisone 60mg/m2 PO BID D1-5 - Neupogen 300 mcg Subq to start D6 - EF 65% via echo in January, Hep B negative - PCP Prophylaxis Bactrim DS 1 tab PO M,W,F - Plan IT Mtx. weekly x8 starting tomorrow 2. Pituitary Dysfunction: - managed by Dr. Hassan. - noted significant urine output yesterday with steady climb of Na - plan to increase desmopressin to 0.[address] Hassan - consultation greatly appreciated 3. COPD: - stable, no acute exacerbation 4. Severe protein calorie malnutrition 5. N/v secondary to DYER HELPER involvement of lymphoma ]
--- NOTE | 2018-06-03 20:52 | RAD ---
EXAM: CT Head Without Intravenous Contrast CLINICAL HISTORY: 68 years old, male; Device placement; Other: Post op ommaya reservoir placement; Prior surgery; Surgery date: Post-operative (0-2 days) TECHNIQUE: Axial computed tomography images of the head/brain without intravenous contrast. COMPARISON: BRAIN WO CT BRAIN WO 2017-07-12 11:12 correlation is also made with a prior CT of the brain from June 03, 2018. FINDINGS: Brain: No acute hemorrhage, edema, or extraaxial collection. Curran white differentiation is maintained throughout the brain. A Catheter extends from the right frontal reservoir into the right lateral ventricle with tip near the foramen of Monro. A bubble of pneumocephalus is present anterior to the right frontal lobe. Ventricles: Normal size and configuration. No hydrocephalus. Bones/joints: Small right frontal cici hole deep to ommoya reservoir. No acute fracture or aggressive osseous lesions Soft tissues: A reservoir is now present in the right frontal scalp with a small amount of adjacent subcutaneous fluid and air. Sinuses: There is dense opacification and bone destruction in the sphenoid sinuses and posterior ethmoid air cells bilaterally. Mastoid air cells: Unremarkable as visualized. No mastoid effusion. Tubes, lines and devices: A catheter extends from the right frontal scalp reservoir into the right lateral ventricle with tip near the foramen of Chou. IMPRESSION: 1. Postop changes consistent with recent placement of ommoya reservoir in right frontal scalp. Catheter extends into right lateral ventricle with tip near foramen of Monro. 2. Continued dense opacification and bone destruction in the sphenoid and posterior ethmoid sinuses. I agree with the reports with the exception of minor edits.
[2018-06-03] MEDS: Nortriptyline CAP* 10 MG PO SCH (22:40)
[2018-06-04] MEDS: Saline NASAL SPRAY 0.65%* BTL BOTH NARES SCH ×5 (00:56→23:26)
[2018-06-04] MEDS: Levothyroxine TAB* 25 MCG TAB PO SCH (06:19)
[2018-06-04] MEDS: Heparin VIAL(*) 5000 UNITS/ML VIAL (FIVE THOUSAND) SUBCUT SCH ×3 (06:20→22:05)
[2018-06-04] MEDS: Acetaminophen TAB* 325 MG PO PRN (06:25)
[2018-06-04 07:02] LABS: ABS Basophils 0.2 10^3/ul (0-0.2); ABS Eosinophils 0 10^3/ul (0-0.6); ABS Lymphocytes 0.1 10^3/ul (1.0-4.8); ABS Monocytes 0.1 10^3/ul (0-0.8); ABS Neutrophils 15.3 10^3/ul (1.5-7.7); ABS Nucleated RBC 0 10^3/ul; Eosinophil % 0 % (0-6); Hematocrit 31 % (42-52); Hemoglobin 10.7 g/dl (14.0-18.0); Lymphocyte % 0.7 % (25-47); Mean Corpuscular HGB Conc 34 g/dl (31-36); Mean Corpuscular Hemoglobin 31 pg (27-31); Mean Corpuscular Volume 91 fL (80-94); Mean Platelet Volume 6.3 um3 (7.4-10.4); Nucleated Red Blood Cells % 0; Platelet Count 401 10^3/ul (150-450); Red Blood Count 3.45 10^6/ul (4.00-5.40); Red Cell Distribution Width 15 % (10.5-15); White Blood Count 15.7 10^3/ul (3.5-10.8)
[2018-06-04 07:17] LABS: EGFR Non-African American 275.1 (>60)
[2018-06-04] MEDS: Mometasone/Formoter 200/5 MDI INH SCH ×2 (07:48→19:47)
[2018-06-04] MEDS: Omeprazole CAP* 20 MG PO SCH (09:00)
[2018-06-04] MEDS: Famotidine TAB* 20 MG PO SCH ×2 (09:00→21:54)
[2018-06-04] MEDS: Allopurinol TAB* 300 MG PO SCH ×2 (09:00→09:01)
[2018-06-04] MEDS: Docusate CAP* 100 MG PO SCH ×2 (09:01→21:54)
[2018-06-04] MEDS: amLODIPine TAB* 5 MG PO SCH (09:01)
[2018-06-04] MEDS: oxyCODONE SR TAB(*) 15 MG TAB.SR PO SCH ×2 (09:02→21:55)
[2018-06-04] MEDS: predniSONE TAB* 50 MG PO SCH ×2 (09:02→21:55)
[2018-06-04] MEDS: guaiFENesin ER TAB 600 MG PO SCH ×2 (09:02→21:54)
[2018-06-04] MEDS: CMCS:Desmopressin TAB (NF) 0.1 MG TAB PO SCH ×2 (09:03→21:56)
[2018-06-04] MEDS ORDERED: METHOTREXATE IVPB ONE (09:15)
[2018-06-04] MEDS ORDERED: NS 0.9% IVPB ONE ×2 (09:15→15:00)
[2018-06-04] MEDS: Sulfamethox/Trimethoprim DS 800/160* TAB PO SCH (09:16)
[2018-06-04] MEDS ORDERED: NS 0.9% INTRATHEC ONE (10:00)
[2018-06-04] MEDS ORDERED: METHOTREXATE INTRATHEC ONE (10:00)
--- NOTE | 2018-06-04 10:54 | PROCNOTE ---
Hematology/Oncology Procedure Hematology/Oncology Procedure Note: IT methotrexate via ommaya port: Confirmed appropriated placement of ommaya port via postoperative CT review. Time out completed. Port located in R frontal/parietal region. Prepped in a sterile fashion. Ommaya port accessed with 23g butterfly needle. 10ml clear CSF drawn out. 6ml (15mg) methotrexate instilled slowly. Flushed with 2 ml CSF. Patient experienced no HUERTA or nausea during the procedure. Clean dressing applied. Patient became flushed and diaphoretic following the procedure, no vomiting. Recovered quickly, no measured fever. No mental status changes.
--- NOTE | 2018-06-04 11:03 | PN ---
Progress Note - Progress Note Date of Service: 06/04/18 SOAP: Subjective: [No complaints overnight. No HUERTA, n/v.] Objective: [ Laboratory Results - last 24 hr 06/03/18 06/04/18 06/04/18 06:15 06:50 06:50 WBC 15.7 H RBC 3.45 L Hgb 10.7 L Hct 31 L MCV 91 MCH 31 MCHC 34 RDW 15 Plt Count 401 MPV 6.3 L Neut % (Auto) 97.5 H Lymph % (Auto) 0.7 L G[place]on % (Auto) 0.6 Eos % (Auto) 0 Baso % (Auto) 1.2 Absolute Neuts (auto) 15.3 H Absolute Lymphs (auto) 0.1 L Absolute Monos (auto) 0.1 Absolute Eos (auto) 0 Absolute Basos (auto) 0.2 Absolute Nucleated RBC 0 Nucleated RBC % 0 Sodium 132 L Potassium 3.5 Chloride 96 L Carbon Dioxide 32 Anion Gap 4 BUN 4 L Creatinine 0.32 L Est GFR ( Amer) 332.9 Est GFR (Non-Af Amer) 275.1 BUN/Creatinine Ratio 12.5 Glucose 109 H Calcium 7.7 L Total Bilirubin 0.70 AST 18 ALT 21 Alkaline Phosphatase 71 Total Protein 4.9 L Albumin 2.6 L Globulin 2.3 Albumin/Globulin Ratio 1.1 Blood Type AB Positive Antibody Screen Negative Acetaminophen (Tylenol Tab*) 650 mg PO Q8H PRN PRN Reason: fever, HUERTA Last Admin: 06/04/18 06:25 Dose: 650 mg Albuterol (Ventolin Hfa Inhaler*) 1 puff INH Q6H PRN PRN Reason: SHORTNESS OF BREATH Last Admin: 05/24/18 23:52 Dose: 1 puff Albuterol/Ipratropium (Duoneb (Albuterol 2.5 Mg/Ipratropium 0.5 Mg)) 1 neb INH Q4H PRN PRN Reason: SOB/WHEEZING Last Admin: 06/02/18 18:07 Dose: 1 neb Allopurinol (Zyloprim Tab*) 300 mg PO DAILY TERRANCE Last Admin: 06/04/18 09:01 Dose: Not Given Amlodipine Besylate (Norvasc Tab*) 5 mg PO DAILY TERRANCE Last Admin: 06/04/18 09:01 Dose: 5 mg Baclofen (Lioresal Tab*) 5 mg PO BID PRN PRN Reason: SPASMS Desmopressin Acetate (Desmopressin Tab (Nf)) 0.1 mg PO BID [facility] Last Admin: 06/04/18 09:03 Dose: 0.1 mg Docusate Sodium (Colace Cap*) 200 mg PO BID [facility] Last Admin: 06/04/18 09:01 Dose: 200 mg Famotidine (Pepcid Tab*) 20 mg PO BID [facility]; Protocol Last Admin: 06/04/18 09:00 Dose: 20 mg Gabapentin (Neurontin Cap(*)) 300 mg PO QPM [facility] Last Admin: 06/03/18 17:57 Dose: 300 mg Guaifenesin (Mucinex*) 1,200 mg PO BID [facility] Last Admin: 06/04/18 09:02 Dose: 1,200 mg Heparin Sodium (Porcine) (Heparin Vial(*)) 5,000 units SUBCUT Q8HR [facility] Last Admin: 06/04/18 06:20 Dose: 5,000 units Doxorubicin HCl 18 mg/Etoposide 90 mg/ Vincristine Sulfate 0.7 mg/ Sodium Chloride 514.2 mls @ 21.425 mls/hr IVPB DAILY@1630 [facility] Stop: 06/04/18 16:29 Last Admin: 06/03/18 17:47 Dose: 21.425 mls/hr Cyclophosphamide 1,000 mg/Cyclophosphamide 320 mg/Sodium Chloride 566 mls @ 566 mls/hr IVPB ONCE ONE Stop: 06/04/18 15:59 Levothyroxine Sodium (Synthroid Tab*) 50 mcg PO DAILY@0600 [facility] Last Admin: 06/04/18 06:19 Dose: 50 mcg Mometasone Furoate/Formoterol Fumar (Dulera 200/5 Mdi*) 2 puff INH BID [facility] Last Admin: 06/04/18 07:48 Dose: 2 puff Nortriptyline HCl (Pamelor Cap*) 10 mg PO BEDTIME [facility] Last Admin: 06/03/18 22:40 Dose: 10 mg Omeprazole (Prilosec Cap*) 40 mg PO DAILY@0730 [facility] Last Admin: 06/04/18 09:00 Dose: 40 mg Ondansetron HCl (Zofran Inj*) 4 mg IV Q6H PRN PRN Reason: NAUSEA Last Admin: 05/27/18 08:51 Dose: 4 mg Ondansetron HCl (Zofran Odt Tab*) 4 mg SL Q6H PRN PRN Reason: NAUSEA/VOMITING Oxycodone HCl (Oxycontin(*)) 30 mg PO Q12HR [facility] Last Admin: 06/04/18 09:02 Dose: 30 mg Oxycodone HCl (Roxycodone Tab*) 5 mg PO Q4H PRN PRN Reason: PAIN - BREAKTHROUGH Last Admin: 06/01/18 15:02 Dose: 5 mg Polyethylene Glycol/Electrolytes (Miralax*) 17 gm PO QPM PRN PRN Reason: CONSTIPATION Prednisone (Deltasone Tab*) 100 mg PO BID [facility] Stop: 06/04/18 21:01 Last Admin: 06/04/18 09:02 Dose: 100 mg Prochlorperazine (Compazine Tab*) 10 mg PO Q6H PRN PRN Reason: NAUSEA/VOMITING Senna (Senokot Tab*) 1 tab PO BEDTIME PRN PRN Reason: CONSTIPATION Last Admin: 05/27/18 21:39 Dose: 1 tab Sodium Chloride (Sodium Chloride 0.65% Nasal [place]*) 2 spray BOTH NARES Q6H [facility] Last Admin: 06/04/18 06:21 Dose: 2 spray Trimethoprim/Sulfamethoxazole (Bactrim Ds 800/160 Tab*) 1 tab PO MoWeFr [facility] Last Admin: 06/04/18 09:16 Dose: 1 tab Vital Signs: Temp Pulse Resp BP Pulse Ox 98.2 F 83 16 152/59 90 06/04/18 07:40 06/04/18 08:00 06/04/18 09:02 06/04/18 07:40 06/04/18 07:40 Exam: Gen: Mildly ill appearing. 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 Now s/p ommaya port placement. Plan: []1. DLBCL: cont da-REPOCH, C1D5 today (ELIZABETH Cuadra, et al. Blood 2002; 99:[id number]) - Rituximab 375 mg/m2 IV D1 - Etoposide 50 mg/m2/day, Doxorubicin 10 mg/m2/day, and Vincristine 0.4/m2/day D1-4 - Cyclophosphamide 750 mg/m2 IV D5 - Prednisone 60mg/m2 PO BID D1-5 - Neupogen 300 mcg Subq to start D6 - EF 65% via echo in January, Hep B negative - PCP Prophylaxis Bactrim DS 1 tab PO M,W,F - IT Mtx. administered today - continue weekly infusion x 8 - SQ injection teaching for Neupogen administration at home 2. Pituitary Dysfunction: - managed by Dr. Hassan. - slightly + fluid balance yesterday with IVF given for OR - cont 0.[address] Hassan - consultation greatly appreciated 3. COPD: - stable, no acute exacerbation 4. Severe protein calorie malnutrition 5. N/v secondary to CHAIR INSPECTOR involvement of lymphoma Dispo: PT eval today, anticipate dc home tomorrow ]
[2018-06-04] MEDS ORDERED: PROCHLORPERAZINE INJ 5 MG/ML 2 ML VIAL IV PRN (11:36)
[2018-06-04] MEDS ORDERED: PROCHLORPERAZINE INJ 5 MG/ML 2 ML VIAL ONE (11:39)
--- NOTE | 2018-06-04 12:18 | OP ---
DATE OF OPERATION: 06/03/18 - ROOM #332 DATE OF : 46 SURGEON: Usman Carrillo MD [employer] FSCM DEVELOPER: MISHA Kurtz. Case was done with assistance of surgical PA because of the complexity of the case. ANESTHESIA: General. PRE-OP DIAGNOSIS: B-cell lymphoma with involvement of the pituitary stalk and sphenoid sinus. POST-OP DIAGNOSIS: B-cell lymphoma with involvement of the pituitary stalk and sphenoid sinus. OPERATIVE PROCEDURE: The patient underwent a right frontal Ommaya reservoir placement. ESTIMATED BLOOD LOSS: 10 cc. COMPLICATIONS: None. 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 At the request of primary oncology service, Dr. Smart, Ommaya reservoir placement was offered to the patient for intrathecal chemotherapy. After explaining alternative treatment options, expectation, limitations, and possible complications of the procedure with complications including, but not limited to bleeding, infection, risk of injury to adjacent structures, coma, paralysis, , need for additional procedures, anesthesia risk, stroke, blindness, cancer, hydrocephalus, need for permanent CSF diversion, anesthesia risk, the patient was agreeable to proceed with surgery, and informed consent was obtained. The same was discussed with the patient's and daughter. They understood that his condition may not improve, in fact may get worse after the surgery and he may need to have additional procedure in the future. They also understood that operative plan will be modified according to the intraoperative findings and conditions. DESCRIPTION OF PROCEDURE: The patient was brought to the operating room, was placed under general anesthesia by the anesthesia team. He was positioned supine on regular table and also bony prominences were meticulously padded. The head was rested on a Donut gel head rest. Hair was removed with surgical clippers, and after appropriate surgical pause and patient identification, the skin was prepped and draped in a standard fashion. A semi-circular incision was marked on the skin over the intended entry point of the Ommaya reservoir, and after infiltrating the skin with local anesthetic, a #15 surgical blade was used to incise the skin. The incision was carried down to the periosteum. The skin flap was elevated leaving the layer of periosteum intact. Bovie cautery was used to incise the periosteum over the intended cici hole site. Self- retaining retractors were introduced to the field and high-speed drill was used to fashion a cici hole. Dura was exposed and was coagulated with bipolar cautery and it was gently incised with #11 surgical blade. The ventricular catheter was then gently inserted and free flow of CSF was observed after removing the stylette. The catheter was cut in 6 cm length and the Ommaya reservoir was connected and secured in place with 2-0 silk ties. Integra cici hole standard CSF reservoir was used for this procedure. After securing the periphery of the Ommaya reservoir on to the periosteum with 2-0 silk sutures, copious irrigation and confirmation of decreased hemostasis, the self-retaining retractor was removed and the skin was closed by layers with interrupted 2-0 Vicryl sutures to approximate the subcutaneous tissue while the skin was covered with Dermabond.The reservoir was then again accessed and free flow of CSF was confirmed with a butterfly needle. At the end of the procedure, all counts were reported to be correct. The patient remained hemodynamically stable throughout the case. The patient was then extubated and was transferred to Recovery in excellent condition. The case was done with the assistance of the surgical PA because of the complexity of the case. [id number]/[facility]PS #: [id number] ROGER
--- NOTE | 2018-06-04 14:09 | PN ---
Progress Note - Progress Note Date of Service: 06/04/18 SOAP: Subjective: [] No events ON. Tolerates po well. No HUERTA. Reported to have right LE subjective weakness per nurse earlier this am, but on reexamination patient has no c/o LE weakness. Objective: []VSS Wound s,c,d AAOx3 CORTEZ, CN II-XII grossly intact Motor 5/5 all extremities. No pronator drift. No LE drift. Sensory grossly intact to light touch Assessment: []68 yom POD#1 Omaya reservoir placement. Plan: []Monitor VS, Neurochecks Postop CT revealed good placement of catheter, No hematoma. Plan per IM/Oncology. Miriam Carrillo MD
[2018-06-04] MEDS ORDERED: CYCLOPHOSPHAMIDE IVPB ONE (15:00)
[2018-06-04] MEDS: Gabapentin CAP(*) 300 MG PO SCH (17:51)
[2018-06-04] MEDS: Nortriptyline CAP* 10 MG PO SCH (21:55)
[2018-06-05] MEDS: Levothyroxine TAB* 25 MCG TAB PO SCH (05:25)
[2018-06-05] MEDS: Heparin VIAL(*) 5000 UNITS/ML VIAL (FIVE THOUSAND) SUBCUT SCH ×2 (05:25→15:27)
[2018-06-05] MEDS: Saline NASAL SPRAY 0.65%* BTL BOTH NARES SCH ×2 (05:32→12:59)
[2018-06-05] MEDS: Omeprazole CAP* 20 MG PO SCH (05:32)
[2018-06-05 05:52] LABS: ABS Basophils 0 10^3/ul (0-0.2); ABS Eosinophils 0 10^3/ul (0-0.6); ABS Lymphocytes 0.1 10^3/ul (1.0-4.8); ABS Monocytes 0 10^3/ul (0-0.8); ABS Neutrophils 9.9 10^3/ul (1.5-7.7); ABS Nucleated RBC 0 10^3/ul; Eosinophil % 0 % (0-6); Hematocrit 32 % (42-52); Hemoglobin 11.1 g/dl (14.0-18.0); Mean Corpuscular HGB Conc 35 g/dl (31-36); Mean Corpuscular Hemoglobin 32 pg (27-31); Mean Corpuscular Volume 90 fL (80-94); Mean Platelet Volume 6.3 um3 (7.4-10.4); Nucleated Red Blood Cells % 0; Platelet Count 344 10^3/ul (150-450); Red Blood Count 3.51 10^6/ul (4.00-5.40); Red Cell Distribution Width 15 % (10.5-15); White Blood Count 10.1 10^3/ul (3.5-10.8)
[2018-06-05 06:13] LABS: EGFR Non-African American 232.7 (>60)
[2018-06-05] MEDS: Allopurinol TAB* 300 MG PO SCH (07:16)
[2018-06-05] MEDS: Mometasone/Formoter 200/5 MDI INH SCH (08:44)
[2018-06-05] MEDS: CMCS:Desmopressin TAB (NF) 0.1 MG TAB PO SCH (09:42)
[2018-06-05] MEDS: oxyCODONE TAB* 5 MG TAB PO PRN ×2 (09:43→13:48)
[2018-06-05] MEDS: amLODIPine TAB* 5 MG PO SCH (09:43)
[2018-06-05] MEDS: Famotidine TAB* 20 MG PO SCH (09:43)
[2018-06-05] MEDS: Docusate CAP* 100 MG PO SCH (09:43)
[2018-06-05] MEDS: guaiFENesin ER TAB 600 MG PO SCH (09:44)
[2018-06-05] MEDS: oxyCODONE SR TAB(*) 15 MG TAB.SR PO SCH (09:44)
--- NOTE | 2018-06-05 11:22 | PN ---
Progress Note - Progress Note Date of Service: 06/05/18 SOAP: Subjective: [] No events ON. Tolerates po well. No HUERTA. Ambulates, Voids Objective: []VSS Wound s,c,d AAOx3 CORTEZ, CN II-XII grossly intact Motor 5/5 all extremities. No pronator drift. No LE drift. Sensory grossly intact to light touch Assessment: [] 68 yom POD#2 Omaya reservoir placement. Plan: [] Monitor VS, Neurochecks Omaya was used yesterday. Plan per IM/Oncology. Ok to DC from NS standpoint. Postop visit for wound check in office in 2 weeks. Will be always available if needed. Miriam Carrillo MD
[2018-06-05] MEDS ORDERED: Nystatin SUSPENSION* 100000 UNITS/ML 5 ML UDC PO SCH (13:00)
[2018-06-05 13:21] VITALS: BP 129/60
--- NOTE | 2018-06-05 23:08 | DS ---
CC: Kevin Green MD; Janak Smart MD * DISCHARGE SUMMARY: DATE OF ADMISSION: 05/23/18 DATE OF DISCHARGE: 06/05/18 PRIMARY CARE PROVIDER: Kevin Green MD PRIMARY AND CONSULTING ONCOLOGIST: Janak Smart MD CONSULTING NEUROSURGEON: Dr. Carrillo. CONSULTING PARKING LOT LABORER: Dr. Hassan. CONSULTING GENERAL SURGEON: Dr. Daniels. ATTENDING PHYSICIAN: Ashwini Craig MD * (DICTATED BY MISHA FOSTER) DISCHARGING PROVIDER: MISHA Foster PRIMARY DISCHARGE DIAGNOSES: 1. 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 2. 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 3. Intractable nausea and vomiting secondary to ROOF PANEL HANGER invasion. 4. Chronic obstructive pulmonary disease without acute exacerbation. 5. Severe protein calorie malnutrition. 6. Thrush. SECONDARY DISCHARGE DIAGNOSES: Chronic respiratory failure secondary to chronic obstructive pulmonary disease, on chronic supplemental oxygen. DISCHARGE MEDICATIONS: 1. Albuterol inhaler 1 puff inhaled q.6 hours as needed for shortness of breath. 2. Baclofen 5 mg p.o. twice daily as needed for pain and spasm. 3. Fioricet 1 tablet p.o. twice daily as needed for headache. 4. Gabapentin 300 mg p.o. each evening. 5. Nortriptyline 10 mg p.o. at bedtime. 6. Zantac 150 mg p.o. twice daily. 7. Saline nasal spray 2 sprays in both nostrils every 6 hours as needed for dry nose. 8. Acetaminophen 650 mg p.o. q.6 hours as needed for pain or fever. 9. Allopurinol 300 mg p.o. daily. 10. Amlodipine 10 mg p.o. daily. 11. Desmopressin 0.1 mg p.o. twice daily. 12. Neupogen 300 mcg subcu days 6 through 16 of chemotherapy cycle to be started on 06/05/18. 13. Levothyroxine 50 mcg p.o. daily. 14. Nystatin suspension 500,000 units p.o. 4 times daily. 15. Omeprazole 40 mg p.o. daily. 16. Zofran 4 mg sublingual q.6 hours as needed for nausea. 17. Oxycodone/acetaminophen 2 tablets p.o. q.6 hours as needed for pain. 18. Compazine 10 mg p.o. q.6 hours as needed for nausea. 19. Bactrim 1 tablet p.o. Thursday, Thursday, Thursday. Medication changes: 1. Start nystatin. 2. Start Zofran and Compazine. 3. Start Bactrim for PCP prophylaxis. 4. Start Neupogen. 5. Start allopurinol for prevention of tumor lysis syndrome. HOSPITAL IMAGIN. CT abdomen and pelvis on 05/22/18 demonstrate hepatic cysts in the left lobe of the liver as well as a distended gallbladder but no abnormal masses or fluid collection seen. 2. Gallbladder ultrasound shows a distended gallbladder with biliary sludge, no evidence of gallstones. 3. Chest x-ray shows no active cardiopulmonary disease. 4. Sinus CT shows opacification of the ethmoid air cells extending anteriorly and progressive since previous exam into the nasal cavity. Erosion of the greater vein of the sphenoid as well as inferior sphenoid sinuses extending to the nasopharynx is present. 5. MRI of the brain on 05/26/18 shows significant interval worsening of disease compared to 12/29/17 MRI with extensive lobar margin, diffusely enhancing tumor including the clivus planum sphenoidale and mucosal margins of the sphenoid sinus with contiguous involvement of the pituitary fossa and thickened pituitary stalk with a 0.7 cm diameter spherical enhancing mass extending to the hypothalamus and optic chiasm. 6. Chest x-ray on 05/26/18 shows stigmata of obstructive lung disease, no acute process. 7. Chest x-ray on 05/27/18 shows a right PowerPort placement, no pneumothorax. 8. CT brain on 06/03/18 shows no definite intracranial mass or hemorrhage. Again, a mass noted within the sphenoid sinuses extending to the ethmoid air cells and bony erosion of the sinuses and greater wing of the sphenoid. 9. CT brain on 06/03/18 postprocedure shows postop changes consistent with recent placement of Ommaya reservoir in the right frontal scalp catheter that extends into the right lateral ventricle with the tip near the foramen of Monro. 10. Pathology - bone marrow shows hypocellular bone marrow with no evidence of hematologic malignancy. 11. Surgical pathology from sphenoid sinus sample from 05/19/18 shows diffuse large B-cell lymphoma, negative for MYC and IgH rearrangement infusion, positive for MUM1. 12. CSS, negative for malignancy. HOSPITAL COURSE: This is a 68-year-old gentleman with a history of chronic sinusitis for which he was seen by ear, nose, and throat, and imaging studies showed a large mass and/or infiltrate in the sphenoid sinus, which was biopsied by Dr. Ramey on 05/19/18. Biopsy demonstrated evidence of diffuse large B- cell lymphoma. The patient developed progressive lethargy and intractable nausea and vomiting, which brought him to the emergency department for evaluation. Initial labs showed a white blood cell count of 20,000, hemoglobin of 13.8 g/dL, and a platelet count of 485,000. Metabolic panel was largely unremarkable. CRP was moderately elevated at 67.22. At that time, the patient was complaining of a severe headache. Oncology was consulted and plan was at that time for pain control related to his headache and discharge with plan for systemic staging via PET and starting systemic chemotherapy quickly. Unfortunately, the patient's performance status continued to decline throughout his hospitalization and he developed rather significant hypernatremia with negative fluid balance, which gave rise to the question of diabetes insipidus and for this reason an MRI of the brain was obtained, which showed bony invasion of the mass through the wall of the sphenoid sinus into the ethmoid air cells with impingement of the pituitary stalk and mass extending to the hypothalamus and optic chiasm. CT of the chest, abdomen, and pelvis did not show any other obvious lymphadenopathy and bone marrow biopsy was completed, which was negative for lymphoma involvement and a lumbar puncture was performed , which was also negative for malignant cells. Due to the location of the mass, the patient was started on high dose steroids and dose escalated R-EPOCH chemotherapy was initiated on an inpatient basis to expedite tumor regression. The patient tolerated chemotherapy very well. He requires weekly intrathecal methotrexate and for this reason, an Ommaya reservoir was placed during this hospitalization and he did receive his first dose of intrathecal methotrexate on 06/04/18. Due to the patient's multiple endocrine abnormalities related to mass effect on the pituitary and hypothalamus, Dr. Leo Hassan, training officer was consulted for additional management. He was started on desmopressin with improvement in his sodium as well as levothyroxine for thyroid hormone supplementation. DISPOSITION AND FOLLOWUP PLAN: The patient received his first cycle of dose escalated R-EPOCH with day 1, cycle 1 being 05/31/18. During this hospitalization, he had a PowerPort placed as well as an Ommaya reservoir. His first dose of intrathecal methotrexate was 06/04/18, with plans to continue weekly administration x8 total doses. The patient was discharged with PCP prophylaxis and will start Neupogen on day 6 of his cycle, which is today the day of discharge, 06/05/18, which will be delivered to the patient's home. The patient will follow up in the oncology office on 06/08/18, for further treatment planning. MISHA FOSTER [id number]/[facility] #: [id number] MTDD
== END 2018-06-05 14:55 | disposition home health service (06) | DRG 823 ==
LOC: ED 19:11 → MED 05-23 04:26 → OBSVTOIN 05-24 15:22 → SSU 06-03 16:20
PROVIDERS: ADMIT Hospitalist; ATTEND Internal Medicine Hematology & Oncology
PROC: 07DR3ZX Extraction of Iliac Bone Marrow, Percutaneous Approach, Diagnostic (ICD-10-PCS; 2018-05-25)
PROC: 009U3ZX Drainage of Spinal Canal, Percutaneous Approach, Diagnostic (ICD-10-PCS; 2018-05-27)
PROC: 0JH63WZ Insertion of Totally Implantable Vascular Access Device into Chest Subcutaneous Tissue and Fascia, Percutaneous Approach (ICD-10-PCS; 2018-05-27)
PROC: 05H533Z Insertion of Infusion Device into Right Subclavian Vein, Percutaneous Approach (ICD-10-PCS; 2018-05-27)
PROC: B516ZZA Fluoroscopy of Right Subclavian Vein, Guidance (ICD-10-PCS; 2018-05-27)
PROC: 3E0 Administration, Physiological Systems and Anatomical Regions, Introduction (ICD-10-PCS; 2018-06-03)
PROC: 30233L1 Transfusion of Nonautologous Fresh Plasma into Peripheral Vein, Percutaneous Approach (ICD-10-PCS; 2018-06-03)
PROC: 00H603Z Insertion of Infusion Device into Cerebral Ventricle, Open Approach (ICD-10-PCS; principal; 2018-06-03 09:45)
DX: C83.31 Diffuse large B-cell lymphoma, lymph nodes of head, face, and neck (principal); E43 Unspecified severe protein-calorie malnutrition; C83.34 Diffuse large B-cell lymphoma, lymph nodes of axilla and upper limb; E23.0 Hypopituitarism; E23.2 Diabetes insipidus; E87.0 Hyperosmolality and hypernatremia; J96.12 Chronic respiratory failure with hypercapnia; E23.3 Hypothalamic dysfunction, not elsewhere classified; E03.9 Hypothyroidism, unspecified; B37.9 Candidiasis, unspecified; D72.829 Elevated white blood cell count, unspecified; I71.9 Aortic aneurysm of unspecified site, without rupture; K76.89 Other specified diseases of liver; J32.9 Chronic sinusitis, unspecified; G47.00 Insomnia, unspecified; F41.9 Anxiety disorder, unspecified; J43.9 Emphysema, unspecified; K21.9 Gastro-esophageal reflux disease without esophagitis; E66.3 Overweight; G43.909 Migraine, unspecified, not intractable, without status migrainosus; E87.6 Hypokalemia; J34.9 Unspecified disorder of nose and nasal sinuses; G93.9 Disorder of brain, unspecified; Z68.24 Body mass index [BMI] 24.0-24.9, adult; Z99.81 Dependence on supplemental oxygen; Z88.1 Allergy status to other antibiotic agents; Z88.8 Allergy status to other drugs, medicaments and biological substances; Z88.0 Allergy status to penicillin; Z87.891 Personal history of nicotine dependence; Z72.89 Other problems related to lifestyle; Z82.49 Family history of ischemic heart disease and other diseases of the circulatory system; Z80.0 Family history of malignant neoplasm of digestive organs; Z80.8 Family history of malignant neoplasm of other organs or systems; Z80.7 Family history of other malignant neoplasms of lymphoid, hematopoietic and related tissues; Z89.022 Acquired absence of left finger(s)
CPT/HCPCS: 36415; 38222; 70450; 70486; 70553; 71045; 71046; 74177; 76000; 76705; 80048; 80053; 81003; 81015; 82024; 82150; 82533; 83001; 83002; 83003; 83605; 83615; 83690; 83735; 83930; 83935; 84146; 84300; 84305; 84403; 84439; 84443; 85025; 85097; 85610; 85730; 86140; 86704; 86706; 86850; 86900; 86901; 86927; 87086; 87340; 88112; 88184; 88185; 88187; 88188; 88189; 88305; 88311; 88313; 89051; 93005; 94640; 99223; 99232; 99233; 99285; A9270-GY; A9579; C1776; C1788; G8978-GP-CI; G8979-GP-CI; G8980-GP-CI; J0780; J1100; J1200; J1453; J1642; J1644; J2175; J2250; J2270; J2405; J2469; J2543; J2704; J3010; J3370; J7512; J9000; J9070; J9181; J9260; J9310; J9370; P9017; Q9967

== ENCOUNTER 2018-06-11 15:20 | Inpatient (IN) | payer MEDICARE ==
[2018-06-11] MEDS ORDERED: Levalbuterol 1.25MG/0.5ML NEB ONE (15:31)
[2018-06-11] MEDS ORDERED: Diltiazem IV VIAL* 5 MG/ML 10 ML VIAL IV SLOW PU ONE (15:45)
[2018-06-11] MEDS ORDERED: NS 0.9% 1000 ML* 1,000 ML IV ONE (15:45)
--- OUTSIDE RECORDS SUMMARY | 2018-06-11 15:50 | XMS REPORT ---
:1950 External Reference #:[id number] Author Organization [facility] [employer] Address [address] [place] [place] [address] [place] [address] Phone [phone] Care Team Providers Name Role Phone Sabrina Pavon MD Primary Care Physician Unavailable Payers Type Date Identification Numbers Payment Provider Subscriber Commercial Effective: Policy Number: [id number] Aries Martel/Howard Alexandru Chopra 2016 Options PayID: [id number] [address] [address] Attn: [place] [address] [employer] Part B Expires: 2016 Policy Number: [id number] Medicare Alexandru Chopra PayID: [id number] [address] [place] [address] Problems Date Description Provider Status Onset: 05/09/2013 [...] 04/22 Active Tablets 150mg 60tab one by R10.9 Johnson Maximum /2017 s mouth twice SEAN Yoo Strength a day as needed Fluticasone 04/16 Active Suspension 50mcg/Act 16uni inhale two J32.2 Chuck D. [place] [facility] [place] M.D. nostril every day Proair HFA 03/11 Active Aerosol 108(90Bas 8.500 1 puff Sapna e) gm every 6 MD Brian mcg/Act hours as needed Amlodipine 03/01 Active Tablets 10mg 30tab Take 1 Sabrina Besylate /2017 s Tablet By Cotton, Mouth Every M.D. Day Oxycodone HCL 12/03 Active Tablets 5mg 60tab 1 by mouth Sabrina s every 4-6 Cotton, hours as M.D. needed headache Wheelchair 07/22 Active Misc 1unit lightweight J44.9 Kevin E. /2017 s folding papa Green.D. dx: COPD, chronic dyspnea with exertion Shower Chair 12/26 Active use with J44.9 Kevin E. bathing for Normakenan sx M.D. Nebulizer 07/20 Active Kit 1unit use as Kevin E. Kit/Tubing/Mout /2014 s directed michael Green dx: j44.9 M.D. Gabapentin 01/12 Active Capsules 300mg 90cap Take One Kevin E. /2012 s Capsule By Norma, Mouth In Am M.D. Baclofen Active Tablets 10mg 90tab take 1/2 Kevin E. / s tablet by Norma, mouth twice M.D. daily or as needed Oxygen Active Misc 2 L Unknown continuousl y Benzonatate Active Capsules 100mg 90cap take 1 [...] days/week* Anoro Ellipta Active Aerosol 62.5-25mc 1 Unknown / g/Inh inhalation daily Albuterol Active Nebulizer Via Unknown Sulfate nebulizer, as needed Omeprazole Active Capsules DR 20mg 60cap Take 2 Kevin E. / s Capsules By Norma, Mouth Daily M.D. AT 7:30Am Tylenol 8 Hour Active Tablets ER 650mg 1 tab every Unknown /0000 6 hours as needed for pain Metoclopramide 04/22 Hx Tablets 5mg 30tab one tablet Johnson HCL /2017 s every 8 Fredo STORE HOST - hours as 04/22 needed. Ondansetron 04/20 Hx Tablets 4mg 30tab dissolve Johnson /2017 Dispers s one tablet Fredo STORE HOST - orally 04/22 every hours as needed for nausea. Doxycycline 04/16 Hx Capsules 100mg 60cap 1 by mouth J32.2 Chuck D. Monohydrate s twice a day [place], - with food M.D. 05/03 Levofloxacin 04/15 Hx Tablets 500mg 10tab one by J01.90 Johnson s mouth daily Fredo, STORE HOST - for 10 days 04/15 Moxifloxacin 04/15 Hx Tablets 400mg 10tab 1 tablet Johnson HCL s once daily Fredo, STORE HOST - x 10 days - 04/16 pt never started Doxycycline 04/12 Hx Capsules 100mg 14cap one tablet J01.90 Johnson Hyclate s twice daily Fredo, STORE HOST - for 7 days. 04/15 Doxycycline 03/30 Hx Capsules 100mg 20cap one tablet J01.90 Johnson Hyclate s twice daily Fredo, STORE HOST - for 10 . Levofloxacin 03/26 Hx Tablets 500mg 10tab one by J01.90 Johnson s mouth daily Fredo, STORE HOST - for 10 days 03/30 Fluticasone 03/23 Hx Suspension 50mcg/Act 48gm 1 spray Johnson Propionate each Fredo, STORE HOST - nostril 05/05 daily as needed Levalbuterol 02/25 Hx Nebulizer 0.63mg/3M 225ml use 3-4x Sapna HCL L daily as MD Brian - needed for 03/11 shortness of breath Albuterol 02/24 Hx Nebulizer 0.63mg/3M 675ml 1 unit, Sapna Sulfate L nebl, every MD Brian - 6 hours, as 02/25 needed Levalbuterol 02/22 Hx Aerosol 45mcg/Act 15gm 2 puffs J44.9 Johnson Tartrate every 4-6 Fredo, STORE HOST - hours as 03/11 needed for SOB Incruse Ellipta 02/20 Hx Aerosol 62.5mcg/I 30uni inhale one Sapna nh ts puff by MD Brian - mouth every Incruse Ellipta 01/05 Hx Aerosol 62.5mcg/I 30uni inhale 1 Kevin E. nh ts puff by Norma - mouth every M.D. Ibuprofen 11/11 Hx Tablets 600mg 90tab Take 1 . s Tablet By Norma, - Mouth Twice M.D. 05/03 A Day Needed Lioresal 10MG 10/27 Hx Tablet 90tab Take 10/20. s Tablet By Norma, - Mouth Twice M.D. 02/18 Daily Or Needed--not currently taking Ipratropium 05/30 Hx Solution 0.5-2.5(3 90uni Inhale 1 Kevin E. Munford/Albuter )mg/3ML ts Vial Via Norma, ol Sulfate - Nebulizer M.D. 02/18 Twice Daily as Needed For Shortness Of Breath Ipratropium 05/30 Hx Solution 0.5-2.5(3 540un Inhale 1 Kevin E. Munford/Albuter )mg/3ML its Vial Via Norma, ol Sulfate - Nebulizer M.D. 02/18 Twice Daily as Needed For Shortness Of Breath Flomax 01/27 Hx Capsules 0.4mg 90cap 1 by mouth Z80.42 s every day Norma, - M.D. 07/20 Atrovent HFA 11/20 Hx Aerosol 17mcg/Act 12.9u 1 unit, nits inhl, twice Norma, - a day M.D. 01/27 Incruse Ellipta 11/05 Hx Aerosol 62.5mcg/I 1unit 1 nh s inhalation Norma, - every day M.D. 11/20 Neomycin/Polymy 05/17 Hx Suspension 3.5-60853 1vial Finished 381.00 Anna kenan/Hydrocortis /2014 -1 tammy Jin - M.D. 07/16 [facility] NTS Step 1 03/02 Hx Patches 21mg/24HR 30uni 1 pach 305.1 Sapna /2014 24HR ts topically MD Brian - every day 05/17 [facility] Nicotine 03/02 Hx Gum 4mg 60uni not taking F17.210 Sapna Polacrilex /2014 ts 1 Brian hernandez MD - every 6 04/11 hours needed Nicotine 10/06 Hx Patches 21mg/24HR 30uni 1 patch 305.1 Kevin Curran 24HR ts over skin Norma, - every day M.D. 05/17 Nicotine 10/06 Hx Gum 2mg 60uni 1 gum every 305.1 Kevin Curran Polacrilex ts 6 hours as Norma, - needed M.D. 05/17 Breo Ellipta 09/12 Hx Aerosol 100-25mcg 1unit 1 puff 496 Kevin Curran /2013 /Inh s daily Norma, - M.D. 02/13 Spiriva 09/12 Hx Capsules 18mcg 90cap Inhale 1 J44.9 Kevin Curran Handihaler s Capsule (2 Norma, - Puffs) Via M.D. 02/18 Handihaler Once Daily AT The Same Time Every Day Duoneb 06/22 Hx Solution 0.5-2.5(3 90uni Inhale 1 Kevin Curran )mg/3ML ts Vial Via Norma, - Nebulizer M.D. 05/30 Twice Daily as Needed For Shortness Of Breath Advair [...] 08/03 Hx Suspension 50mcg/Act 32gm 1 spray Kevin Curran Propionate each Norma, - nostril M.D. 02/18 daily as needed Oxycodone HCL 02/25 Hx Tablets 5mg 30tab 1 by mouth Kevin Curran /2012 s every 12 Norma, - hours [...] bid Kevin E. /0000 t s Eloisa Green.Waqas 09/11 Ibuprofen Hx Tablets 600mg 60tab Take [...] Xopenex Hx Nebulizer 1.25mg/0. q 2 hours Unknown Concentrate /0000 5ML as needed - 04/07 Prednisone Hx Tablets 40mg Take 2 Unknown /0000 Tablets By - Mouth Daily 04/07 For 4 Days Then 1 Tablet For 4 Days (20MG) Ipratropium Hx Solution 0.02% Inhale Unknown Munford /0000 Contents Of - 1 Vial Via [...] Technetium TC Administered Injection Gerber Alan 99M 016 Andrew Zavala Tetrofosmin, Per Unit Dose Up To 40 Millicuries Technetium TC Administered Injection Gerber Alan 99M 016 Andrew Zavala Tetrofosmin, Per Unit Dose Up To 40 Millicuries Immunizations CPT Code Status Date Vaccine Lot # [id number] Given 08/20/2017 Influenza Virus Vaccine, Quadrivalent, Split, Preservative Free 00430 Given 07/29/2016 Influenza Virus Vaccine, Quadrivalent, Split [id number] Virus, [place] Use [address]71 Given 07/17/2015 Influenza Virus Vaccine, Quadrivalent, Split, [id number] Preservative Free 65317 Given 09/12/2014 Pneumococcal Conjugate Vaccine 13 Valent For [id number] Intramuscular Use 31224 Given 08/23/2014 Flu Vaccine Split Virus Preservative Free For Indiv 3Yr Older [id number] Given 08/29/2013 Flu Vaccine NOS 31039 Given 09/10/2011 Pneumonia Vaccine 89915 Given 06/04/2011 Tdap - Tetanus/Diptheria/Acellular Pertussis Vital [...] Result H/L Range Note CBC Auto Diff 05/23/2018 White Blood Count 18.9 10^3/uL High 3.5-10.8 Red Blood Count 4.14 10^6/uL 4.00-5.40 Hemoglobin 12.9 g/dL Low 14.0-18.0 Hematocrit 39 % Low 42-52 Mean Corpuscular Volume 93 fL 80-94 Mean Corpuscular Hemoglobin 31 pg 27-31 Mean Corpuscular HGB Conc 34 g/dL 31-36 Red Cell Distribution Width 15 % 10.5-15 Platelet Count 436 10^3/uL 150-450 Mean Platelet Volume 6.1 um3 Low 7.4-10.4 Abs Neutrophils 16.2 10^3/uL High 1.5-7.7 Abs Lymphocytes 1.1 10^3/uL 1.0-4.8 Abs Monocytes 1.4 10^3/uL High 0-0.8 Abs Eosinophils 0.1 10^3/uL 0-0.6 Abs Basophils 0.1 10^3/uL 0-0.2 Abs Nucleated RBC 0 10^3/uL Granulocyte % 85.9 % High 38-83 Lymphocyte % 5.8 % Low 25-47 Monocyte % 7.4 % High 0-7 Eosinophil % 0.3 % 0-6 Basophil % 0.6 % 0-2 Nucleated Red Blood Cells % 0 CBC Auto Diff 05/22/2018 White Blood Count 20.1 10^3/uL High 3.5-10.8 Red Blood Count 4.51 10^6/uL 4.00-5.40 Hemoglobin 13.8 g/dL Low 14.0-18.0 Hematocrit 41 % Low 42-52 Mean Corpuscular Volume 92 fL 80-94 Mean Corpuscular Hemoglobin 31 pg 27-31 Mean Corpuscular HGB Conc 33 g/dL 31-36 Red Cell Distribution Width 15 % 10.5-15 Platelet Count 485 10^3/uL High 150-450 Mean Platelet Volume 6.4 um3 Low 7.4-10.4 Abs Neutrophils 17.4 10^3/uL High 1.5-7.7 Abs Lymphocytes 1.1 10^3/uL 1.0-4.8 Abs Monocytes 1.4 10^3/uL High 0-0.8 Abs Eosinophils 0.1 10^3/uL 0-0.6 Abs Basophils 0.1 10^3/uL 0-0.2 Abs Nucleated RBC 0 10^3/uL Granulocyte % 86.5 % High 38-83 Lymphocyte % 5.6 % Low 25-47 Monocyte % 7.0 % 0-7 Eosinophil % 0.5 % 0-6 Basophil % 0.4 % 0-2 Nucleated Red Blood Cells % 0 Laboratory test finding 05/22/2018 Lactic Acid 1.5 mmol/L 0.5-2.0 1 Inr/Protime 05/22/2018 Inr 1.18 High 0.77-1.02 Laboratory test finding 05/22/2018 Partial Thrombo Time 31.9 seconds 26.0 -36.3 PTT Comp Metabolic Panel 05/22/2018 Sodium 139 mmol/L 135-145 Potassium 3.6 mmol/L 3.5-5.0 Chloride 97 mmol/L Low 101-111 Co2 Carbon Dioxide 34 mmol/L High 22-32 Anion Gap 8 mmol/L 2-11 Glucose 116 mg/dL High 70-100 Blood Urea Nitrogen 4 mg/dL Low 6-24 Creatinine 0.59 mg/dL Low 0.67-1.17 BUN/Creatinine Ratio 6.8 Low 8-20 Calcium 9.1 mg/dL 8.6-10.3 Total Protein 6.9 g/dL 6.4-8.9 Albumin 3.4 g/dL 3.2-5.2 Globulin 3.5 g/dL 2-4 Albumin/Globulin Ratio 1.0 1-3 Total Bilirubin 0.50 mg/dL 0.2-1.0 Alkaline Phosphatase 112 U/L High 34-104 Alt 14 U/L 7-52 Ast 24 U/L 13-39 Egfr Non- 135.8 >60 Egfr 164.3 >60 2 Laboratory test finding 05/22/2018 Magnesium 2.3 mg/dL 1.9-2.7 Amylase 13 U/L Low 29-103 Lipase < 10 U/L Low 11.0-82.0 C Reactive Protein 67.22 mg/L High <8.01 Urinalysis Profile 05/22/2018 Urine Color Straw Urine Appearance Clear Urine Specific [place] 1.003 Low 1.010-1.030 Urine pH 7.0 5-9 Urine Urobilinogen Negative Negative Urine Ketones Negative Negative Urine Protein Negative Negative Urine Leukocytes Negative Negative Urine Blood 1+ Negative Urine Nitrite Negative Negative Urine Bilirubin Negative Negative Urine Glucose Negative Negative Urine White Blood Cell Trace(0-5/hpf) Absent Urine Red Blood Cell Trace(0-2/hpf) Absent Urine Bacteria Absent Absent Urine Culture And 05/22/2018 Urine Culture SEE RESULT BELOW 3 Sensitivities Leukemia/Lymphoma Flow 05/19/2018 Path Interpret 9-15 (SEE NOTE) 4 Marker Laboratory test finding 05/19/2018 Surgical Pathology SEE RESULT BELOW 5 Inr/Protime 04/26/2018 Inr 1.05 High 0.77-1.02 Laboratory test finding 04/26/2018 Lactic Acid 1.1 mmol/L 0.5-2.0 6 CBC Auto Diff 04/26/2018 White Blood Count [...] Egfr Non- 119.3 >60 Egfr 144.4 >60 7 Laboratory test finding 04/26/2018 Magnesium 2.0 mg/dL 1.9-2.7 Amylase 19 U/L Low 29-103 Lipase 11 U/L 11.0-82.0 Creatine Kinase(CK) 28 U/L 10-223 C Reactive Protein 40.59 mg/L High <8.01 Troponin-I (TnI) 0.04 ng/mL High <0.04 8 Blood Culture SEE RESULT BELOW 9 CBC Auto Diff 04/22/2018 White Blood Count [...] Egfr Non- 121.8 >60 Egfr 147.4 >60 10 Laboratory test finding 04/22/2018 Lipase 13 U/L 11.0-82.0 Hemoglobin A1c (Glyco HGB) 6.1 % High 4.0-5.6 11 Urinalysis Profile 02/11/2018 Urine Color Straw Urine Appearance Clear Urine Specific [place] 1.004 Low 1.010-1.030 Urine pH 7.0 5-9 [...] Sensitivities 02/11/2018 Urine Culture SEE RESULT BELOW 12 Arterial Blood Gas 02/10/2018 O2 Device vapotherm Fio2 100 PH Arterial 7.33 Low 7.35-7.45 Pco2 Arterial 78 mmHg High 35-45 13 Po2 Arterial 240 mmHg High 80-100 O2 Saturation Arterial 100.1 % High 95-98 Base Excess Arterial 11.0 High -2.0-2.0 14 Hco3 Arterial 33.5 mmol/L High 19-31 CBC [...] finding 02/10/2018 Lactic Acid 1.0 mmol/L 0.5-2.0 15 Comp Metabolic Panel 02/10/2018 Sodium 128 mmol/L [...] Egfr Non- 147.7 >60 Egfr 189.9 >60 16 Laboratory test finding 02/10/2018 C Reactive Protein 1.24 mg/L < 5.00 17 Troponin-I (TnI) 0.01 ng/mL <0.04 Inr/Protime 02/10/2018 Inr 0.98 0.77-1.02 Laboratory test 02/10/2018 D Dimer Quantitative < 200 ng/mL Less Than 230 18 finding B-Type Natriuretic Peptide BNP 122 pg/mL High 19 Rapid Influenza A & B 02/08/2018 Influenza A Molecular NEGATIVE Negative 20 Molecular Influenza B Molecular NEGATIVE Negative Arterial Blood Gas 02/08/2018 Fio2 3 PH Arterial 7.34 Low 7.35-7.45 Pco2 Arterial 82 mmHg High 35-45 21 Po2 Arterial 133 mmHg High 80-100 O2 Saturation Arterial 99.2 % High 95-98 Base Excess Arterial 13.8 High -2.0-2.0 22 Hco3 Arterial 35.6 mmol/L High 19-31 Laboratory test 02/08/2018 Rapid Influenza A B SEE RESULT BELOW 23 finding Antigen CBC Auto Diff 02/08/2018 White [...] finding 02/08/2018 Lactic Acid 0.9 mmol/L 0.5-2.0 24 Inr/Protime 02/08/2018 Inr 0.94 0.77-1.02 Laboratory test finding 02/08/2018 Partial Thrombo Time 29.5 seconds 26.0 -36.3 PTT D Dimer Quantitative < 200 ng/mL Less Than 230 25 B-Type Natriuretic Peptide BNP 41 pg/mL 26 Procalcitonin 0.1 ng/mL <0.6 27 Troponin-I (TnI) 0.01 ng/mL <0.04 Comp Metabolic [...] Egfr Non- 136.2 >60 Egfr 175.2 >60 28 Co2 Carbon Dioxide 42 mmol/L High 22-32 29 Anion Gap 4 mmol/L 2-11 Laboratory test finding 02/08/2018 Creatine Kinase(CK) 154 U/L 10-223 C Reactive Protein 4.67 mg/L < 5.00 30 CKMB 02/08/2018 CKMB ng/mL 14.0 ng/mL High 0.6-6.3 31 Laboratory test 02/08/2018 Blood Culture SEE RESULT BELOW 32 finding Laboratory test 12/07/2017 Occult Blood - negative finding Stool Arterial Blood Gas 09/01/2017 Fio2 3 Vent Mode Liters PH Arterial 7.38 7.35-7.45 Pco2 Arterial 72 mmHg High 35-45 33 Po2 Arterial 75 mmHg Low 80-100 O2 Saturation Arterial 97.4 % 95-98 Base Excess Arterial 13.4 High -2.0-2.0 34 Hco3 Arterial 35.2 mmol/L High 19-31 CBC [...] finding 09/01/2017 Lactic Acid 1.3 mmol/L 0.5-2.0 35 Troponin-I (TnI) 0.02 ng/mL <0.04 Comp Metabolic [...] Egfr Non- 136.2 >60 Egfr 175.2 >60 36 Co2 Carbon Dioxide 42 mmol/L High 22-32 37 Anion Gap 3 mmol/L 2-11 Laboratory test finding 09/01/2017 B-Type Natriuretic Peptide BNP 33 pg/mL 38 Lipid Profile 02/19/2017 Triglycerides 100 mg/dL 39 (Trig/Chol/HDL) Cholesterol 226 mg/dL 40 HDL Cholesterol 42.9 mg/dL 41 LDL Cholesterol 163 mg/dL 42 Laboratory test finding 07/29/2016 TSH (Thyroid Stim [...] Egfr Non- 110.3 >60 Egfr 141.9 >60 43 CBC Auto Diff 07/29/2016 White Blood Count [...] Blood Cells % 0.1 Laboratory test finding 01/29/2016 PSA Screening 0.416 ng/mL 0-4.000 44 Hemoglobin A1c (Glyco HGB) 6.0 % Less than 6.0 45 Comp Metabolic Panel 01/23/2016 Sodium 133 mmol/L [...] Egfr Non- 100.8 >60 Egfr 129.6 >60 46 Lipid Profile (Trig/Chol/HDL) 01/23/2016 Triglycerides 98 mg/dL 47 Cholesterol 212 mg/dL 48 HDL Cholesterol 38.0 mg/dL 49 LDL Cholesterol 154 mg/dL 50 Laboratory test finding 06/20/2014 PSA Screening 0.526 ng/mL 0-4.000 51 Hepatitis C Antibody Nonreactive Nonreactive Lipid Profile (Trig/Chol/HDL) 06/20/2014 Triglycerides 124 mg/dL 52 Cholesterol 202 mg/dL 53 HDL Cholesterol 36.6 mg/dL 54 LDL Cholesterol 141 mg/dL 55 CBC With Manual Diff 06/20/2014 White Blood Count 10.7 10^3/uL 4.8-10.8 Red Blood Count 5.54 10^6/uL High 4.0-5.4 Hemoglobin 18.0 g/dL 14.0-18.0 Hematocrit 52 % 42-52 Mean Corpuscular Volume 94 fL 80-94 Mean Corpuscular Hemoglobin 33 pg High 27-31 Mean Corpuscular HGB Conc 35 g/dL 31-36 Red Cell Distribution Width 14 % 10.5-15 Platelet Count 233 10^3/uL 150-450 56 Mean Platelet Volume 7 um3 7.4-10.4 57 Abs Neutrophils 7.8 10^3/uL High 1.5-7.7 Abs [...] 12/05/2013 S RUN DATE: 12/06/ <SEE NOTE> 58 Basic Metabolic Panel 09/09/2013 Sodium 135 mmol/L 133-145 Potassium 4.5 mmol/L 3.5-5.0 Chloride 98 mmol/L Low 101-111 Co2 Carbon Dioxide 32.0 mmol/L 22-32 Anion Gap 5.0 mmol/L 2-11 Glucose 98 mg/dL 70-100 Blood Urea Nitrogen 7 mg/dL 6-24 Creatinine 0.90 mg/dL 0.50-1.40 BUN/Creatinine Ratio 7.8 Low 8-20 Calcium 9.0 mg/dL 8.1-9.9 Egfr Non- 84.7 >60 Egfr 108.9 >60 59 Comp Metabolic Panel 07/19/2013 Sodium 132 mmol/L [...] Egfr Non- 113.2 >60 Egfr 145.6 >60 60 Lipid Profile (Trig/Chol/HDL) 07/19/2013 Triglycerides 105 mg/dL 40-200 Cholesterol 209 mg/dL High Less than 200 HDL Cholesterol 36 mg/dL Low 40-60 61 Cholesterol/HDL Ratio 5.8 Average High 1-4.44 LDL Cholesterol 152.0 High Less Than 100 62 1 [facility] Severe Sepsis and Septic Shock Management [...] 5 Kidney failure <15 (or dialysis) 3 SEE RESULT BELOW Name: ALEXANDRU CHOPRA : [address]: Soren Francis MD Acct: [id number] Unit: [id number] AGE: 68 Location: [place] [address] Re05/23/18 SEX: M Status: ADM Rut SPEC: [id number] DARBY: 05/22/[address] [facility] [address]: Luda Babin MD REQ: [id number] RECD: 05/22/18 STATUS: MANDEEP RODRIGUEZ DR: Kevin Green III, MD _ SOURCE: URINE SPDESC: ORDERED: Urine Culture Procedure Result Reported Site Urine Culture Final 05/24/18- 1002 ML No Growth (<1,000 CFU/mL) * ML - Main Lab . END OF REPORT DEPARTMENT OF PATHOLOGY, [address] [place] [address] Joselo Jamil M.D. Director [facility] # [id number] FINAL DIAGNOSIS: Specimen Source: Nasal sinus Flow cytometry immunophenotypic analysis: Involved by CD5 negative, CD10 negative, CD20 positive, kappa light chain restricted lymphoproliferative disorder Interpretative data: Lymphocytes: 89% of WBCs B-cells: Light chain restricted population of CD5 negative, CD10 negative, CD19 and CD20 positive kappa light chain restricted lymphocytes (55% of WBCs. T-cells/NK cells: No aberrant population detected. Markers tested: CD3, CD5, CD7, CD10, CD19, CD20, CD23, CD45, kappa surface light chains, lambda surface light chains, 7-AAD.Cytoplasmic kappa and lambda immunoglobulin light chains. Quality Assessment: Acceptable Viability: Acceptable Viable lymphocytes (7-AAD): Specimen received within validated guidelines. A Levine-Giemsa stained slide prepared from the flow cytometry specimen was examined for quality purposes. Electronically signed by: Joselo Jamil MD 05/24/18 1630 Technical component performed by: [place] [address] [employer]ilingual School Psychologist: Ismael Moe II, MD, PhD. 5 SEE RESULT BELOW Name: ALEXANDRU CHOPRA : [address]: Chaitanya Ramey MD Acct: [id number] Unit: [id number] AGE: 68 Location: [place] Re05/19/18 SEX: M Status: DEP [facility] SPEC: [id number] DARBY: 05/19/18-[address]: Chaitanya Ramey MD REQ: [id number] RECD: 05/19/18 STATUS: SOUT _ ORDERED: FS 1ST PER SPEC, LEVEL 4/3, IMMUNO-FIRST, IMMUNO-ADDL/8, IMMUNO- QUANT Flow cytometry has been performed at [facility], [place], [place]. The testing reveals: FINAL DIAGNOSIS: Specimen Source: Nasal sinus Flow cytometry immunophenotypic analysis: Involved by CD5 negative, CD10 negative, CD20 positive, kappa light chain restricted lymphoproliferative disorder Interpretative data: Lymphocytes: 89% of WBCs B-cells: Light chain restricted population of CD5 negative, CD10 negative, CD19 and CD20 positive kappa light chain restricted lymphocytes (55% of WBCs. T-cells/NK cells: No aberrant population detected. Markers tested: CD3, CD5, CD7, CD10, CD19, CD20, CD23, CD45, kappa surface light chains, lambda surface light chains, 7-AAD.Cytoplasmic kappa and lambda immunoglobulin light chains. Quality Assessment: Acceptable Viability: Acceptable Viable lymphocytes (7-AAD): Specimen received within validated guidelines. A Levine-Giemsa stained slide prepared from the flow cytometry specimen was examined for quality purposes. Electronically signed by: Joselo Jamil MD 05/24/18 1630 Technical component performed by: [place] [address] [employer] Psychologist: Ismael Moe II, MD, PhD. CONTINUED ON NEXT PAGE DEPARTMENT OF PATHOLOGY, [address] [place] [address] Joselo Jamil M.D. Director [facility] # [id number] RUN DATE: 05/25/18 [facility] LAB LIVE PAGE 2 Patient: ALEXANDRU CHOPRA Juju [id number] (Continued) ADDENDUM (Continued) Addendum Signed (signature on file) Nancy Cervantes MD 05/05 1021 FINAL DIAGNOSIS 1. Left ethmoid sinus, excision: --Diffuse large B-cell lymphoma. See comment. 2. Left ethmoid and sphenoid sinuses, excision: --Diffuse large B-cell lymphoma. See comment. 3. Right ethmoid and sphenoid sinuses, excision: -- Diffuse large B-cell lymphoma. See comment. Comment: All 3 specimens demonstrate infiltration of respiratory mucosal tissue by a monomorphic population of large malignant lymphocytes. There is moderate peritumoral fibrosis. No necrosis is seen. The following histochemical stains are performed with appropriate controls on formalin fixed block 3A CD20 strongly and diffusely positive CD30 negative CD3 positive in background T cells CD10 negative PAX 5 positive CD56 negative Ki-67 index greater than 80% Bcl-2 positive Cyclin D1 negative Bcl-6 positive The concurrent flow cytometric evaluation demonstrates a predominant kappa light chain restricted clonal B-cell population with identical phenotype. CONTINUED ON NEXT PAGE DEPARTMENT OF PATHOLOGY, [address] [place] [address] Joselo Jamil M.D. Director [facility] # [id number] RUN DATE: 05/25/18 [facility] LAB LIVE PAGE 3 Patient: ALEXANDRU CHOPRA [id number] (Continued) SPECIMEN COMMENTS (Continued) Morphologic features and immunochemical staining pattern support a diagnosis of diffuse large B-cell lymphoma. An immunohistochemical stain for Mum1 is pending to further subclassify this tumor as are FISH studies. These will be reported in an addendum Dr. Cervantes has reviewed this case and concurs. PATHOLOGY SURGICAL CONSULT Frozen section (FS)/Touch Prep (TP)/Gross Consult (GC) FS1) Ethmoid, left, biopsy: a. Poorly differentiated malignant neoplasm, favor lymphoma. (DS) b. Sent for flow cytometry. (DS) Dr. Ramey notified 05/19/18 at 1700 PRE-OPERATIVE DIAGNOSIS Chronic sphenoidal sinusitis, neoplasm of uncertain GROSS DESCRIPTION 1. The specimen is received fresh labeled, Left Ethmoid, and consists of a 1.6 x 1.5 x 0.4 cm aggregate of joyce-pink irregular soft tissue fragments admixed with scant possible bone. Oil Program Compliance Specialist sections are submitted for frozen section microscopy. The frozen section residue is submitted in cassette FS. A open claims representative section is submitted for flow cytometry. 2. The specimen is received in formalin labeled, Left Ethmoid and Sphenoid Sinus, and consists of a 5.3 x 3.1 by up to 1.0 cm aggregate of joyce-juarez irregular rubbery soft tissue fragments admixed with moderate red-brown blood clot, scant mucus and possible bone fragments. The specimen is submitted entirely in three cassettes. 3. The specimen is received in formalin labeled, Right Ethmoid and Sphenoid Sinus, and consists of a 3.1 x 2.8 x 0.6 cm aggregate of joyce-juarez irregular rubbery soft tissue fragments admixed with red-brown blood clot and scant possible bone. The specimen is submitted entirely in two cassettes. CONTINUED ON NEXT PAGE DEPARTMENT OF PATHOLOGY, [address] [place] [id number] Joselo Jamil M.D. Director [facility] # [id number] RUN DATE: 05/25/18 [facility] LAB LIVE PAGE 4 Patient: ALEXANDRU CHOPRA [id number] (Continued) GROSS DESCRIPTION (Continued) GROSS DESCRIPTION (Continued) Signed by and Reported on: Joselo Jamil MD 04/05 1512 END OF REPORT DEPARTMENT OF PATHOLOGY, [address] [place] [address] Joselo Jamil M.D. Director [facility] # [id number] 6 [facility] Severe Sepsis and Septic Shock Management [...] 5 Kidney failure <15 (or dialysis) 8 Result TnIDx:0.04 Called to [id number] at: 16:06:37 by:[id number] Read back by: [id number] 9 SEE RESULT BELOW Name: NOYALEXANDRU : [address]: Estuardo Covarrubias MD Acct: [id number] Unit: [id number] AGE: 68 Location: [place] [address] Re04/26/18 Dis: 04/28/18 SEX: M Status: DIS Rut SPEC: [id number] DARBY: 04/26/18-[address] [facility] [address]: Dede CABRAL REQ: [id number] RECD: 04/26/18 STATUS: MANDEEP RODRIGUEZ DR: Johnson Chavarria MD _ SOURCE: BLOOD,VENO SPDESC: ORDERED: Blood Cult COMMENTS: Reason for Exam: fever, abd pain Procedure Result Reported Site Aerobic Culture Bottle Final 05/01/18- 1522 ML No Growth Day 5 Anaerobic Culture Bottle Final 05/01/18- 1522 ML No Growth Day 5 * ML - Main Lab . END OF REPORT DEPARTMENT OF PATHOLOGY, [address] [place] [address] Joselo Jamil M.D. Director [facility] # [id number] 10 Because ethnic data is not always readily [...] 15-29 5 Kidney failure <15 (or dialysis) 11 Therapeutic target for the treatment of diabetes mellitus patients is <7% HBA1C, and in selective patients <6.0%. Please refer to [place] [employer] diabetic care guidelines for further information. 12 SEE RESULT BELOW Name: NOYALEXANDRU : [address]: Mindy Kunz MD Acct: [id number] Unit: [id number] AGE: 67 Location: [place] [address] Re02/11/18 SEX: M Status: ADM IN SPEC: [id number] DARBY: 02/11/180037 [facility] DR: Sang Gutierrez MD REQ: [id number] RECD: 02/11/18 STATUS: COMP [facility] DR: Kevin Green III, MD _ SOURCE: URINE SPDESC: ORDERED: Urine Culture Procedure Result Reported Site Urine Culture Final 02/12/18- 922 ML No Growth (<1,000 CFU/mL) * ML - Main Lab . END OF REPORT DEPARTMENT OF PATHOLOGY, [address] [place] [address] Joselo Jamil M.D. Director [facility] # [id number] 13 Verbal to [id number] by [id number] at 2243 on 02/10/18. Results read back accurately. 14 Reference ranges based on room air. 15 [facility] Severe Sepsis and Septic Shock Management Bundle Measure requires all lactic acids initially measuring >2.0 mmol/L be repeated. 16 Because ethnic data is not always [...] 5 Kidney failure <15 (or dialysis) 17 Acute inflammation: >10.00 18 Please note: The following may produce [...] pg/mL: likely moderate to severe CHF 20 Fire Protection Specialist: [id number] 21 Verbal to [id number] by [id number] at 1231 on 02/08/18. Results read back accurately. 22 Reference ranges based on room air. 23 SEE RESULT BELOW Name: ALEXANDRU CHOPRA : [address]: Kelly Kaur MD Acct: [id number] Unit: [id number] AGE: 67 Location: ED Re02/08/18 SEX: M Status: REG ER SPEC: [id number] DARBY: 02/08/18-[address] [facility] [address]: Kelly Kaur MD REQ: [id number] RECD: 02/08/18 STATUS: MANDEEP RODRIGUEZ DR: Kevin Green III, MD _ SOURCE: [facility]: ORDERED: Flu A B Request Procedure Result Reported Site Rapid Influenza A B Request Final 02/08/18- 1211 ML Specimen received for Influenza A/B Molecular testing * ML - Main Lab . END OF REPORT DEPARTMENT OF PATHOLOGY, [address] [place] [address] Joselo Jamil M.D. Director [facility] # [id number] [facility] Severe Sepsis and Septic Shock Management Bundle Measure requires all lactic acids initially measuring >2.0 mmol/L be repeated. 25 Please note: The following may produce a false positive D Dimer test: - Rheumatoid factor greater than 60 IU/ml - Plasma hemoglobin greater than 0.05 gm/dl - Bilirubin greater than 50 mg/dl - Lipids greater than 1000 mg/dl - FDP greater than 20 ug/ml 26 >100 to <200 pg/mL: likely compensated congestive heart failure (CHF) 200 to 400 pg/mL: likely moderate CHF >400 pg/mL: likely moderate to severe CHF 27 Interpretive information available on [employer] Test Catalog at [email or web address] 28 Because ethnic data is not always readily [...] 15-29 5 Kidney failure <15 (or dialysis) 29 Verbal to [id number] by [id number] at 1204 on 02/08/18. Results read back accurately. 30 Acute inflammation: >10.00 31 Critical Result CO2:42 Called to [id number] at: 12:04:32 by:[id number] Read back by:[id number] 32 SEE RESULT BELOW Name: CHOPRAALEXANDRU : [address]: Kelly Kaur MD Acct: [id number] Unit: [id number] AGE: 67 Location: ED Re02/08/18 SEX: M Status: DEP ER SPEC: [id number] DARBY: 02/08/[address]: Kelly Kaur MD REQ: [id number] RECD: 02/08/18 STATUS: MANDEEP RODRIGUEZ DR: Kevin Green III, MD _ SOURCE: BLOOD,VENO SPDESC: ORDERED: Blood Cult COMMENTS: Patient is On Antibiotics? YES Procedure Result Reported Site Aerobic Culture Bottle Final 02/13/18- 1158 ML No Growth Day 5 Anaerobic Culture Bottle Final 02/13/18- 1158 ML No Growth Day 5 * ML - Main Lab . END OF REPORT DEPARTMENT OF PATHOLOGY, [address] [place] [address] Joselo Jamil M.D. Director [facility] # [id number] 33 Verbal to [id number] by [id number] at 1343 on 09/01/17. Results read back accurately. 34 Reference ranges based on room air. 35 [facility] Severe Sepsis and Septic Shock Management Bundle Measure requires all lactic acids initially measuring >2.0 mmol/L be repeated. 36 Because ethnic data is not always readily [...] 15-29 5 Kidney failure <15 (or dialysis) 37 Critical Result CO2:42 Called to [id number] at: 12:23:54 by:[id number] Read back by:[id number] 38 >100 to <200 pg/mL: likely compensated congestive heart failure (CHF) 200 to 400 pg/mL: likely moderate CHF >400 pg/mL: likely moderate to severe CHF 39 Desirable <150 Borderline high 150-199 High 200-499 Very High >500 40 Desirable <200 Borderline high 200-239 High >239 41 Low <40 Desirable: 40-60 High: >60 42 Desirable: <100 mg/dL Near Optimal: 100-129 mg/dL Borderline High: 130-159 mg/dL High: 160-189 mg/dL Very High: >189 mg/dL 43 Because ethnic data is not always readily [...] 15-29 5 Kidney failure <15 (or dialysis) 44 Serum levels of PSA measured using the [employer] DXI Hybritech immunoassay should not be interpreted [...] methods or kits cannot be used interchangeably. 45 Therapeutic target for the treatment of diabetes Mellitus patients is <7% HBA1C, and in selective patients <6.0%.Please refer to [place] [employer] Diabetic care guidelines for further information. 46 Because ethnic data is not always readily [...] 15-29 5 Kidney failure <15 (or dialysis) 47 Desirable <150 Borderline high 150-199 High 200-499 Very High >500 48 Desirable <200 Borderline high 200-239 High >239 49 Low <40 Desirable: 40-60 High: >60 50 Desirable: <100 mg/dL Near Optimal: 100-129 mg/dL Borderline High: 130-159 mg/dL High: 160-189 mg/dL Very High: >189 mg/dL 51 Serum levels of PSA measured using the [employer] DXI Hybritech immunoassay should not be interpreted [...] methods or kits cannot be used interchangeably. 52 Desirable <150 Borderline high 150-199 High 200-499 Very High >500 53 Desirable <200 Borderline high 200-239 High >239 54 Low <40 Desirable: 40-60 High: >60 55 Desirable <100 Near Optimal 100-129 Borderline high 130-159 High 160-189 Very High >189 56 --- 06/20/141647 --- Platelet Count previously reported as: 233 10 3/ul 57 --- 06/20/141647 --- MPV previously reported as: 7 L um3 58 RUN DATE: 12/06/13 [facility] LAB LIVE PAGE 1 RUN TIME: [address] [place], [place] [address] Specimen Inquiry Name: ALEXANDRU CHOPRA : [address]: Ishaan Maki MD Acct: [id number] Unit: [id number] AGE: 63 Location: [facility] Re12/05/13 SEX: M Status: REG REF SPEC: [id number] DARBY: 12/05/13- SUBM DR: Ishaan Maki MD REQ: [id number] RECD: 12/05/13-1028 STATUS: CONG RODRIGUEZ DR: Kevin [...] performed at Main Lab DEPARTMENT OF PATHOLOGY, [address] [place] [address] Joselo Jamil M.D. Director [facility] Permit #[id number] 59 Because ethnic data is not always readily [...] 15-29 5 Kidney failure <15 (or dialysis) 60 Because ethnic data is not always readily [...] 15-29 5 Kidney failure <15 (or dialysis) 61 HDL Interpretation: Undesirable: High Risk: Less than 40 mg/dL Desirable: Low Risk: Greater than 60 mg/dL 62 LDL Interpretation: Low Risk Optimal Level: LDL Less than 100 mg/dL Near or Above Optimal: LDL 100-129 mg/dL Borderline High Risk: LDL 130-159 mg/dL High Risk: LDL 160-189 mg/dL Very High Risk: LDL Greater than 189 mg/dL Procedures Date CPT Code Description Status Comment 03/11/2018 60149 Diffusing Capacity Completed 03/11/2018 48245 Plethysmography Determination Lung Completed Volumes & Per Airway Resist 03/11/2018 41288 Pulmonary Stress Testing, Inc Measurement Completed Heart Rate, Oximetry 03/11/2018 75401 Pulmonary Function><Bronchodil Completed 02/11/2018 44970 ECHO Transthorasic Realtime 2D W Doppler Completed & Color Flow Hosp 08/06/2016 94651 Stress Test Completed 08/06/2016 03870 Myocardial Perfusion Imaging Tomographic Completed (Spect) Multiple Studies 08/01/2016 84140 ECHO Transthoracic, Real-Time 2D With Completed Doppler And Color Flow 07/30/2016 02326 Holter Monitor Review (24 hr)dr review & Completed interp only 07/29/2016 29010 ECG Monitor/Recording W/Visual Completed Superimposition Scanning 09/25/2014 77813 Diffusing Capacity Completed 09/25/2014 20980 Plethysmography Determination Lung Completed Volumes & Per Airway Resist 09/25/2014 98180 Pulmonary Function><Bronchodil Completed 12/05/2013 Colonoscopy Completed 10/19/2010 Colonoscopy Completed Colon polyps Encounters Type Date Location Provider CPT E/M Dx Office Visit 05/06/2018 [place] [address] Z01.811 2:00p [facility] J44.9 R09.02 Office Visit 05/04/2018 9:10a [facility] Chuck Fiore, 13468 R63.4 Infectious Diseases MAneudy D38.5 R93.8 Office Visit 05/03/2018 10:40a [facility] Internal Medicine Kevin Green, 98779 Z01.810 - Mathieu Morales J33.9 J44.9 I10 K21.9 Office Visit 04/28/2018 3:15p [facility] [place] [address] J32.9 Hospitalists J44.9 I10 Office Visit 04/26/2018 3:14p [facility] MISHA Dickerson 02353 R53.1 Assoc,pc Hospitalists R51 J44.9 J32.9 Office Visit 04/26/2018 1:20p [facility] Chuck Fiore, 80152 J32.9 Infectious Diseases MAneudy R63.0 R63.4 R31.9 R53.1 Office Visit 04/22/2018 10:40a [facility] [place] [address] R10.9 Dyana J32.1 J32.2 R63.1 Office Visit 04/16/2018 10:10a [facility] Joyce Fiore, 25243 J32.2 Infectious Diseases Andrew J32.1 Office Visit 04/08/2018 9:15a [facility] [address] J44.9 Services Of [facility] J96.10 Office Visit 03/26/2018 4:00p [facility] Internal Medicine - Johnson Yoo, STORE HOST 15112 J01.90 Christoval R04.2 Office Visit 02/22/2018 2:40p [facility] Internal Medicine - Johnson Yoo, STORE HOST 95926 Z87.891 Christoval J44.9 Office Visit 02/18/2018 1:45p [facility] [place] [address] J44.9 Services Of [employer] R09.02 Z87.891 Office Visit 02/15/2018 2:30p [facility] [place] [address] J44.1 Services Of [facility] F17.201 R06.02 R09.02 Z99.81 Office Visit 02/15/2018 8:38a [facility], [place] [address] J44.1 Hospitalists I10 A49.8 Office Visit 02/14/2018 8:37a [facility], [place] [address] J44.1 Hospitalists I10 A49.8 Office Visit 02/13/2018 8:35a [facility], Mindy Kunz, 65926 J44.1 Hospitalists MAneudy I10 Office Visit 02/13/2018 2:30p [facility] [place] [address] J44.1 Services Of [facility] F17.201 R06.02 Z99.81 Office Visit 02/12/2018 8:29a [facility], Mindy Kunz, 70445 J44.1 Hospitalists MAbdifatahDAbdifatah I10 Office Visit 02/11/2018 8:11a [facility] Corry , [address] J44.1 Assoc, Hospitalists FranklynDAbdifatah I10 Office Visit 02/11/2018 12:00p [facility] [place] [address] F17.201 Services [facility] J44.1 J96.11 J96.12 Office Visit 11/30/2017 3:20p [facility] Internal Medicine Kevin Green, 61487 R10.13 Eloisa Murdock M.D. G43.C0 J44.9 Office Visit 09/09/2017 2:00p [facility] Internal Medicine Kevin Green, 14961 R10.13 - Mathieu Morales J44.1 Office Visit 09/04/2017 [facility] Maria R FarrarBianca, 97389 J96.02 10:58a Assoc,pc STORE HOST Hospitalists J44.1 R10.13 Z72.0 Office Visit 09/03/2017 3:31p [facility] [place] [address] R10.13 J44.1 G43.C0 Office Visit 09/03/2017 [facility] Maria R Farhan, 49868 J96.02 10:57a Assoc,pc STORE HOST Hospitalists J44.1 R10.13 Z72.0 Office Visit 09/02/2017 10:57a [facility], Diana King, 15698 J96.02 Hospitalists N.P. J44.1 R10.13 Z72.0 Office Visit 09/01/2017 10:56a [facility], Diana King, 53315 J96.02 Hospitalists N.P. J44.1 Z72.0 Office Visit 07/22/2017 2:40p [facility] Internal Medicine Kevin Green, 42[address] J44.9 - Mathieu Morales S06.0x9D Office Visit 02/23/2017 3:00p [facility] Internal Medicine Kevin Green, 41961 Z00.00 - Mathieu Morales J44.9 E78.2 F17.210 R60.0 Office Visit 01/28/2016 1:00p [facility] Internal Medicine Kevin Green, 03238 Z00.00 - Dyana Morales J44.9 F17.210 Z80.42 E78.2 R73.01 Z23 R35.0 Office Visit 07/17/2015 2:40p [facility] Internal Medicine Kevin Green, 65066 J44.9 - Dyana Morales F17.210 Z12.2 Z23 Office Visit 05/17/2015 12:40p [facility] Internal Medicine - Anna Jin, 74264 381.00 Dyana Morales Office Visit 03/02/2015 9:30a [facility] [address] 496 Services [facility] 305.1 278.00 Office Visit 02/13/2015 9:00a [facility] Internal Medicine - Kevin Green, 26228 496 Dyana Morales Office Visit 10/06/2014 2:00p [facility] [place] [address] 496 [facility] 305.1 278.00 780.59 Office Visit 09/12/2014 3:40p [facility] Internal Medicine - Kevin Green, 11754 496 Dyana Morales v03.82 Office Visit 06/07/2014 9:00a [facility] Internal Medicine Kevin Green, 47376 V70.0 - Dyana Morales 496 272.2 784.0 V73.89 V16.42 V81.2 Office Visit 04/10/2014 3:40p [facility] Internal [facility] Kevin Green, 6[address] 496 Dyana Morales 784.0 Office Visit 12/08/2013 10:00a [facility] Internal Medicine Kevin Green, 59244 272.2 - Dyana Morales 496 784.0 305.1 Office Visit 08/08/2013 4:20p [facility] Internal Medicine Wallace Cabrales 15738 272.2 - Dyana Morales 276.1 Office Visit 07/19/2013 11:20a [facility] Internal Medicine Wallace Cabrales 00354 784.0 - Dyana Morales 780.52 728.85 Office Visit 05/09/2013 3:20p [facility] Internal Medicine Wallace Cabrales M.D. 09482 496 - Christoval 272.2 784.0 305.1 278.00 Office Visit 05/27/2012 8:30a Mickey Hui 63341 784.0 Services Of Yi Morales 723.1 Plan of Care Future Appointment(s):07/12/2018 11:30 am - Sapna Torres MD at [facility]05/06/2018 - Sapna Torres MDZ01.811 Encounter for preprocedural respiratory examinationFollow up:2 qfrjvrO01.9 Chronic obstructive pulmonary disease, mejzjmsfsybU52.02 Hypoxemia
--- OUTSIDE RECORDS SUMMARY | 2018-06-11 15:51 | XMS REPORT ---
:1950 External Reference #:[id number] Author Organization [facility] Address [address] [place] [address] [place] [address] Phone [phone] Care Team Providers Name Role Phone Sabrina Pavon MD Primary Care Physician Unavailable Payers Type Date Identification Numbers Payment Provider Subscriber Commercial Effective: Policy Number: [id number] Aries Martel/Howard Alexandru Chopra 2016 Options PayID: [id number] [address] [address] Attn: [place] [address] [employer] [place] [employer] Expires: 2016 Policy Number: [id number] Medicare Alexandru Chopra PayID: [id number] [address] [place] [address] Problems Date Description Provider Status Onset: 05/09/2013 [...] J32.2 Chuck D. Propionate ts sprays in [facility], each M.D. nostril every day Proair HFA [...] Johnson HCL /2017 s every 8 Fredo SITE SPECIALIST - hours as 04/22 needed. Ondansetron 04/20 Hx Tablets 4mg 30tab dissolve Johnson /2017 Dispers s one tablet Fredo SITE SPECIALIST - orally 04/22 every hours as needed for nausea. Doxycycline 04/16 Hx Capsules 100mg 60cap 1 by mouth J32.2 Chuck D. Monohydrate s twice a day [place], - with food M.D. 05/03 Levofloxacin 04/15 Hx Tablets 500mg 10tab one by J01.90 Johnson s mouth daily Fredo, SITE SPECIALIST - for 10 days 04/15 Moxifloxacin 04/15 Hx Tablets 400mg 10tab 1 tablet Johnson HCL s once daily Fredo, SITE SPECIALIST - x 10 days - 04/16 pt never started Doxycycline 04/12 Hx Capsules 100mg 14cap one tablet J01.90 Johnson Hyclate s twice daily Fredo, SITE SPECIALIST - for 7 days. 04/15 Doxycycline 03/30 Hx Capsules 100mg 20cap one tablet J01.90 Johnson Hyclate s twice daily Fredo, SITE SPECIALIST - for 10 . Levofloxacin 03/26 Hx Tablets 500mg 10tab one by J01.90 Johnson s mouth daily Fredo, SITE SPECIALIST - for 10 days 03/30 Fluticasone 03/23 Hx Suspension 50mcg/Act 48gm 1 spray Johnson Propionate each Fredo, SITE SPECIALIST - nostril 05/05 daily as needed Levalbuterol 02/25 Hx Nebulizer 0.63mg/3M 225ml use 3-4x Sapna HCL L daily as MD Brian - needed for 03/11 shortness of breath Albuterol 02/24 Hx Nebulizer 0.63mg/3M 675ml 1 unit, Sapna Sulfate L nebl, every MD Brian - 6 hours, as 02/25 needed Levalbuterol 02/22 Hx Aerosol 45mcg/Act 15gm 2 puffs J44.9 Johnson Tartrate every 4-6 Fredo, SITE SPECIALIST - hours as 03/11 needed for SOB [...] Solution 0.5-2.5(3 90uni Inhale 1 Kevin E. Bricelyn/Albuter )mg/3ML ts Vial Via Norma, ol Sulfate - Nebulizer M.D. 02/18 Twice Daily as Needed For Shortness Of Breath Ipratropium 05/30 Hx Solution 0.5-2.5(3 540un Inhale 1 Kevin E. Bricelyn/Albuter )mg/3ML its Vial Via Norma, ol Sulfate [...] day M.D. 11/20 Neomycin/Polymy 05/17 Hx Suspension 3.5-89086 1vial Finished 381.00 Anna kenan/Hydrocortis /2014 -1 [...] 32gm 1 spray Kevin Curran Propionate each Noram, - nostril M.D. 02/18 daily as needed [...] (20MG) Ipratropium Hx Solution 0.02% Inhale Unknown Bricelyn /0000 Contents Of - 1 Vial Via [...] CPT Code Status Date Vaccine Lot # [id number] Given 08/20/2017 Influenza Virus Vaccine, Quadrivalent, Split, Preservative Free 26355 Given 07/29/2016 Influenza Virus Vaccine, Quadrivalent, Split [id number] Virus, [place] Use 58307 Given 07/17/2015 Influenza Virus Vaccine, Quadrivalent, Split, [id number] Preservative Free 89411 Given 09/12/2014 Pneumococcal Conjugate Vaccine 13 Valent For [id number] Intramuscular Use 94849 Given 08/23/2014 Flu Vaccine Split Virus Preservative Free For Indiv 3Yr Older [id number] Given 08/29/2013 Flu Vaccine NOS 51870 Given 09/10/2011 Pneumonia Vaccine 89470 Given 06/04/2011 Tdap - Tetanus/Diptheria/Acellular Pertussis Vital [...] Color Straw Urine Appearance Clear Urine Specific [place] 1.003 Low 1.010-1.030 Urine pH 7.0 5-9 [...] Color Straw Urine Appearance Clear Urine Specific [place] 1.004 Low 1.010-1.030 Urine pH 7.0 5-9 [...] 152.0 High Less Than 100 62 1 [facility] Severe Sepsis and Septic Shock Management Bundle [...] [address]: Soren Francis MD Acct: [id number] Unit: [id number] AGE: 68 Location: [place] [address] Re05/23/18 SEX: M Status: ADM Rut SPEC: [id number] DARBY: 05/22/[address] [facility] DR: Luda Babin MD REQ: [id number] RECD: 05/22/18 STATUS: MANDEEP RODRIGUEZ DR: Kevin Green III, MD _ SOURCE: URINE SPDESC: ORDERED: Urine Culture Procedure Result Reported Site Urine Culture Final 05/24/18- 1002 ML No Growth (<1,000 CFU/mL) * ML - Main Lab . END OF REPORT DEPARTMENT OF PATHOLOGY, [address] [place] [address] Joselo Jamil M.D. Director [facility] # [id number] FINAL DIAGNOSIS: Specimen Source: Nasal sinus [...] MD 05/24/18 1630 Technical component performed by: [place] [address] Clay Temperer: Ismael Moe II, MD, PhD. 5 SEE RESULT BELOW Name: ALEXANDRU CHOPRA : [address]: Chaitanya Ramey MD Acct: [id number] Unit: [id number] AGE: 68 Location: [place] Re05/19/18 SEX: M Status: DEP [facility] SPEC: [id number] DARBY: 05/19/18-[address]: Chaitanya Ramey MD REQ: [id number] RECD: 05/19/18 STATUS: SOUT _ ORDERED: FS 1ST PER SPEC, LEVEL 4/3, IMMUNO-FIRST, IMMUNO-ADDL/8, IMMUNO- QUANT Flow cytometry has been performed at [facility], [place], [place]. The testing reveals: FINAL DIAGNOSIS: Specimen [...] MD 05/24/18 1630 Technical component performed by: [place] [address] Clay Temperer: Ismael Moe II, MD, PhD. CONTINUED ON NEXT PAGE DEPARTMENT OF PATHOLOGY, [address] [place] [address] Joselo Jamil M.D. Director [facility] # [id number] RUN DATE: 05/25/18 [facility] LAB LIVE PAGE 2 Patient: ALEXANDRU CHOPRA Juju [id number] (Continued) ADDENDUM (Continued) Addendum Signed (signature on [...] CONTINUED ON NEXT PAGE DEPARTMENT OF PATHOLOGY, [address] [place] [address] Joselo Jamil M.D. Director [facility] # [id number] RUN DATE: 05/25/18 [facility] LAB LIVE PAGE 3 Patient: ALEXANDRU CHOPRA [id number] (Continued) SPECIMEN COMMENTS (Continued) Morphologic features and [...] tissue fragments admixed with scant possible bone. Crochet Beader sections are submitted for frozen section microscopy. The frozen section residue is submitted in cassette FS. A retail service representative section is submitted for flow cytometry. [...] CONTINUED ON NEXT PAGE DEPARTMENT OF PATHOLOGY, [address] [place] [address] Joselo Jamil M.D. Director [facility] # [id number] RUN DATE: 05/25/18 [facility] LAB LIVE PAGE 4 Patient: ALEXANDRU CHOPRA [id number] (Continued) GROSS DESCRIPTION (Continued) GROSS DESCRIPTION (Continued) Signed by and Reported on: Joselo Jamil MD 04/05 1512 END OF REPORT DEPARTMENT OF PATHOLOGY, [address] [place] [address] Joselo Jamil M.D. Director [facility] # [id number] 6 [facility] Severe Sepsis and Septic Shock Management Bundle [...] (or dialysis) 8 Result TnIDx:0.04 Called to [id number] at: 16:06:37 by:[id number] Read back by: [id number] 9 SEE RESULT BELOW Name: NOYALEXANDRU : [address]: Estuardo Covarrubias MD Acct: [id number] Unit: [id number] AGE: 68 Location: [place] [address] Re04/26/18 Dis: 04/28/18 SEX: M Status: DIS Rut SPEC: [id number] DARBY: 04/26/18-[address] [facility] [address]: Dede CABRAL REQ: [id number] RECD: 04/26/18 STATUS: MANDEEP RODRIGUEZ DR: Johnson Chavarria MD _ SOURCE: BLOOD,VENO SPDESC: ORDERED: Blood Cult COMMENTS: Reason for Exam: fever, abd pain Procedure Result Reported Site Aerobic Culture Bottle Final 05/01/18- 1522 ML No Growth Day 5 Anaerobic Culture Bottle Final 05/01/18- 1522 ML No Growth Day 5 * ML - Main Lab . END OF REPORT DEPARTMENT OF PATHOLOGY, [address] [place] [address] Joselo Jamil M.D. Director [facility] # [id number] 10 Because ethnic data is not always [...] in selective patients <6.0%. Please refer to [place] [employer] diabetic care guidelines for further information. 12 SEE RESULT BELOW Name: NOYALEXANDRU : [address]: Mindy Kunz MD Acct: [id number] Unit: [id number] AGE: 67 Location: [place] [address] Re02/11/18 SEX: M Status: ADM IN SPEC: [id number] DARBY: 02/11/180037 [facility] DR: Sang Gutierrez MD REQ: [id number] RECD: 02/11/18 STATUS: COMP [facility] DR: Kevin Green III, MD _ SOURCE: URINE SPDESC: ORDERED: Urine Culture Procedure Result Reported Site Urine Culture Final 02/12/18- 922 ML No Growth (<1,000 CFU/mL) * ML - Main Lab . END OF REPORT DEPARTMENT OF PATHOLOGY, [address] [place] [address] Joselo Jamil M.D. Director [facility] # [id number] 13 Verbal to [id number] by [id number] at 2243 on 02/10/18. Results read back accurately. 14 Reference ranges based on room air. 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 Results read back accurately. 22 Reference ranges based on room air. 23 SEE RESULT BELOW Name: ALEXANDRU CHOPRA : [address]: Kelly Kaur MD Acct: [id number] Unit: [id number] AGE: 67 Location: ED Re02/08/18 SEX: M Status: REG ER SPEC: [id number] DARBY: 02/08/18-1140 [facility] DR: Kelly Kaur MD REQ: [id number] RECD: 02/08/18 STATUS: MANDEEP RODRIGUEZ DR: Kevin Green III, MD _ SOURCE: [facility]: ORDERED: Flu A B Request Procedure Result Reported Site Rapid Influenza A B Request Final 02/08/18- 1211 ML Specimen received for Influenza A/B Molecular testing * ML - Main Lab . END OF REPORT DEPARTMENT OF PATHOLOGY, [address] [place] [address] Joselo Jamil M.D. Director [facility] # [id number] [facility] Severe Sepsis and Septic Shock [...] severe CHF 27 Interpretive information available on [employer] Test Catalog at [email or web address] 28 Because ethnic data is not always [...] failure <15 (or dialysis) 29 Verbal to [id number] by [id number] at 1204 on 02/08/18. Results read back accurately. 30 Acute inflammation: >10.00 31 Critical Result CO2:42 Called to [id number] at: 12:04:32 by:[id number] Read back by:[id number] 32 SEE RESULT BELOW Name: CHOPRAALEXANDRU : [address]: Kelly Kaur MD Acct: [id number] Unit: [id number] AGE: 67 Location: ED Re02/08/18 SEX: M Status: DEP ER SPEC: [id number] DARBY: 02/08/[address]: Kelly Kaur MD REQ: [id number] RECD: 02/08/18 STATUS: MANDEEP RODRIGUEZ DR: Kevin Green III, MD _ SOURCE: BLOOD,VENO SPDESC: ORDERED: Blood Cult COMMENTS: Patient is On Antibiotics? YES Procedure Result Reported Site Aerobic Culture Bottle Final 02/13/18- 1158 ML No Growth Day 5 Anaerobic Culture Bottle Final 02/13/18- 1158 ML No Growth Day 5 * ML - Main Lab . END OF REPORT DEPARTMENT OF PATHOLOGY, [address] [place] [address] Joselo Jamil M.D. Director [facility] # [id number] 33 Verbal to [id number] by [id number] at 1343 on 09/01/17. Results read back accurately. 34 Reference ranges based on room air. 35 [facility] Severe Sepsis and Septic Shock Management Bundle [...] dialysis) 37 Critical Result CO2:42 Called to [id number] at: 12:23:54 by:[id number] Read back by:[id number] 38 >100 to <200 pg/mL: likely compensated [...] Serum levels of PSA measured using the [employer] DXI Hybritech immunoassay should not be interpreted [...] and in selective patients <6.0%.Please refer to [place] [employer] Diabetic care guidelines for further [...] 7 L um3 58 RUN DATE: 12/06/13 [facility] LAB LIVE PAGE 1 RUN TIME: [address] [place], [place] [address] Specimen Inquiry Name: ALEXANDRU CHOPRA : [address]: Ishaan Maki MD Acct: [id number] Unit: [id number] AGE: 63 Location: [facility] Re12/05/13 SEX: M Status: REG REF SPEC: [id number] DARBY: 12/05/13- SUBM DR: Ishaan Maki MD REQ: [id number] RECD: 12/05/13-1028 STATUS: CONG RODRIGUEZ DR: Kevin [...] performed at Main Lab DEPARTMENT OF PATHOLOGY, [address] [place] [address] Joselo Jamil M.D. Director [facility] Permit #[id number] 59 Because ethnic data is not always [...] Date CPT Code Description Status Comment 03/11/2018 78602 Diffusing Capacity Completed 03/11/2018 77098 Plethysmography Determination Lung Completed Volumes & Per Airway Resist 03/11/2018 87668 Pulmonary Stress Testing, Inc Measurement Completed Heart Rate, Oximetry 03/11/2018 45195 Pulmonary Function><Bronchodil Completed 02/11/2018 39631 ECHO Transthorasic Realtime 2D W Doppler Completed & Color Flow Hosp 08/06/2016 97389 Stress Test Completed 08/06/2016 57486 Myocardial Perfusion Imaging Tomographic Completed (Spect) Multiple Studies 08/01/2016 08050 ECHO Transthoracic, Real-Time 2D With Completed Doppler And Color Flow 07/30/2016 00776 Holter Monitor Review (24 hr)dr review & Completed interp only 07/29/2016 56042 ECG Monitor/Recording W/Visual Completed Superimposition Scanning 09/25/2014 72610 Diffusing Capacity Completed 09/25/2014 48617 Plethysmography Determination Lung Completed Volumes & Per Airway Resist 09/25/2014 17073 Pulmonary Function><Bronchodil Completed 12/05/2013 Colonoscopy Completed 10/19/2010 Colonoscopy Completed Colon polyps Encounters Type Date Location Provider CPT E/M Dx Office Visit 05/06/2018 [place] [address] Z01.811 2:00p [facility] J44.9 R09.02 Office Visit 05/04/2018 9:10a [facility] Chuck Fiore, 66029 R63.4 Infectious Diseases MAneudy D38.5 R93.8 Office Visit 05/03/2018 10:40a [facility] Internal Medicine Kevin Green, [address]1952 Z01.810 - Mathieu Morales J33.9 J44.9 I10 K21.9 Office Visit 04/28/2018 3:15p [facility] [place] [address] J32.9 Hospitalists J44.9 I10 Office Visit 04/26/2018 3:14p [facility] MISHA Dickerson [address] R53.1 Assoc,pc Hospitalists R51 J44.9 J32.9 Office Visit 04/26/2018 1:20p [facility] Chuck Fiore, 33242 J32.9 Infectious Diseases MAneudy R63.0 R63.4 R31.9 R53.1 Office Visit 04/22/2018 10:40a [facility] [place] [address] R10.9 Dyana J32.1 J32.2 R63.1 Office Visit 04/16/2018 10:10a [facility] Joyce Fiore, [address] J32.2 Infectious Diseases Andrew J32.1 Office Visit 04/08/2018 9:15a [facility] [place] [address] J44.9 [facility] J96.10 Office Visit 03/26/2018 4:00p [facility] Internal Medicine - Johnson Yoo, SITE SPECIALIST 91130 J01.90 [place] R04.2 Office Visit 02/22/2018 2:40p [facility] Internal Medicine - Johnson Yoo, SITE SPECIALIST [address]97[address] Z87.891 [place] J44.9 Office Visit 02/18/2018 1:45p [facility] [place] [address] J44.9 Services Of Physical Security 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 R09.02 Z87.891 Office Visit 02/15/2018 2:30p [facility] [place] [address] J44.1 [facility] F17.201 R06.02 R09.02 Z99.81 Office Visit 02/15/2018 8:38a [facility], [place] [address] J44.1 Hospitalists I10 A49.8 Office Visit 02/14/2018 8:37a [facility], [place] [address] J44.1 Hospitalists I10 A49.8 Office Visit 02/13/2018 8:35a [facility], Mindy Kunz, 13726 J44.1 Hospitalists MAneudy I10 Office Visit 02/13/2018 2:30p [facility] [place] [address] J44.1 [facility] F17.201 R06.02 Z99.81 Office Visit 02/12/2018 8:29a [facility], Mindy Kunz, 232[address] J44.1 Hospitalists MAbdifatahDAbdifatah I10 Office Visit 02/11/2018 8:11a [facility] Corry , [address] J44.1 Assoc, Hospitalists FranklynDAbdifatah I10 Office Visit 02/11/2018 12:00p [facility] [place] [address] F17.201 [facility] J44.1 J96.11 J96.12 Office Visit 11/30/2017 3:20p [facility] Internal Medicine Kevin Green, 63876 R10.13 Eloisa Murdock M.D. G43.C0 J44.9 Office Visit 09/09/2017 2:00p [facility] Internal Medicine Kevin Green, 23397 R10.13 - Mathieu Morales J44.1 Office Visit 09/04/2017 [facility] Maria R FarrarBianca, [address] J96.02 10:58a Assoc,pc SITE SPECIALIST Hospitalists J44.1 R10.13 Z72.0 Office Visit 09/03/2017 3:31p [facility] [place] [address] R10.13 J44.1 G43.C0 Office Visit 09/03/2017 [facility] Maria R Farhan, 85645 J96.02 10:57a Assoc,pc SITE SPECIALIST Hospitalists J44.1 R10.13 Z72.0 Office Visit 09/02/2017 10:57a [facility]oc, Diana King, 08518 J96.02 Hospitalists N.P. J44.1 R10.13 Z72.0 Office Visit 09/01/2017 10:56a [facility], Diana King, 59436 J96.02 Hospitalists N.P. J44.1 Z72.0 Office Visit 07/22/2017 2:40p [facility] Internal Medicine Kevin Green, 97374 J44.9 - Mathieu Morales S06.0x9D Office Visit 02/23/2017 3:00p [facility] Internal Medicine Kevin Green, 937[address] Z00.00 - Mathieu Morales J44.9 E78.2 F17.210 R60.0 Office Visit 01/28/2016 1:00p [facility] Internal Medicine Kevin Green, 41143 Z00.00 - Dyana Morales J44.9 F17.210 Z80.42 E78.2 R73.01 Z23 R35.0 Office Visit 07/17/2015 2:40p [facility] Internal Medicine Kevin Green, 90748 J44.9 - Dyana Morales F17.210 Z12.2 Z23 Office Visit 05/17/2015 12:40p [facility] Internal Medicine - Anna Jin, 17198 381.00 Dyana Morales Office Visit 03/02/2015 9:30a [facility] [address] [facility] 305.1 278.00 Office Visit 02/13/2015 9:00a [facility] Internal Medicine - Kevin Green, [address] 496 Dyana Morales Office Visit 10/06/2014 2:00p [facility] [place] [address] [facility] 305.1 278.00 780.59 Office Visit 09/12/2014 3:40p [facility] Internal Medicine - Kevin Green, 05398 496 Dyana Morales v03.82 Office Visit 06/07/2014 9:00a [facility] Internal Medicine Kevin Green, 80940 V70.0 - Dyana Morales 496 272.2 784.0 V73.89 V16.42 V81.2 Office Visit 04/10/2014 3:40p [facility] Internal [facility] Kevin Green, [address] 496 Dyana Morales 784.0 Office Visit 12/08/2013 10:00a [facility] Internal Medicine Kevin Green, 44521 272.2 - Dyana Morales 496 784.0 305.1 Office Visit 08/08/2013 4:20p [facility] Internal Medicine Wallace Cabrales 51949 272.2 - Dyana Morales 276.1 Office Visit 07/19/2013 11:20a [facility] Internal Medicine Wallace Cabrales 73264 784.0 - Dyana Morales 780.52 728.85 Office Visit 05/09/2013 3:20p [facility] Internal Medicine Wallace Cabrales M.D. 06428 496 - [place] 272.2 784.0 305.1 278.00 Office Visit 05/27/2012 8:30a Mickey Hui 01219 784.0 Services Of Yi Morales 723.1 Plan of Care Future Appointment(s):07/12/2018 11:30 am - Sapna Torres MD at [facility]ology [facility]05/06/2018 - Sapna Torres MDZ01.811 Encounter for preprocedural respiratory examinationFollow up:2 dbgiynI32.9 Chronic obstructive pulmonary disease, rtqvirizcucG52.02 Hypoxemia
[2018-06-11] MEDS ORDERED: Diltiazem IV* 5 MG/ML 5 ML VIAL (for loading dose/IV Push) (25 MG) ONE (16:03)
--- NOTE | 2018-06-11 16:14 | RAD ---
Indication: Shortness of breath. Single frontal view of the chest performed at 1551 hours was reviewed. Comparison is made with previous exam dated May 27, 2018. No mediastinal shift is noted. Heart is of normal size and configuration. Lung garcia appear clear. Central catheter is in place. IMPRESSION: NO ACTIVE CARDIOPULMONARY DISEASE IS NOTED.
[2018-06-11] MEDS ORDERED: Diltiazem DRIP* 100 MG/100 ML ADDV.BAG IVPB ONE ×2 (16:31→22:18)
[2018-06-11 17:28] LABS: EGFR Non-African American 153.7 (>60)
[2018-06-11 17:29] LABS: INR 1.57 (0.77-1.02)
[2018-06-11] MEDS ORDERED: NS 0.9% 100 ML* 100 ML ONE (17:52)
[2018-06-11] MEDS ORDERED: Diltiazem IV VIAL* 125 MG in NS 0.9% 100 ML* 100 ML IV ONE (18:00)
[2018-06-11 18:40] LABS: Hematocrit 30 % (42-52); Hemoglobin 10.2 g/dl (14.0-18.0); Mean Corpuscular HGB Conc 34 g/dl (31-36); Mean Corpuscular Hemoglobin 31 pg (27-31); Mean Corpuscular Volume 92 fL (80-94); Mean Platelet Volume 7.7 um3 (7.4-10.4); Platelet Count 86 10^3/ul (150-450); Red Blood Count 3.29 10^6/ul (4.00-5.40); Red Cell Distribution Width 15 % (10.5-15)
[2018-06-11 18:42] LABS: White Blood Count 0.1 10^3/ul (3.5-10.8)
[2018-06-11] MEDS ORDERED: Iohexol 350* (CONTRAST) 500 ML MDV IV ONE (19:02)
--- NOTE | 2018-06-11 19:37 | ED ---
Shortness of Breath - HPI Summary HPI Summary: Patient is a 68 y/o M w/ c/o SOB onsetting 15:30 today. EMS reports he was 69 O2 sat upon arrival. He states he had difficulty swallowing yesterday. He was seen for Sx, reports they found virus, and is receiving medication for Dx. He also reports he is receiving a lot of other medications. Patient has brain cancer and received treatment yesterday. Hx of afib. Pain is denied, SOB worse with exertion on triage. - History of Current Complaint Chief Complaint: EDShortnessOfBreath Time Seen by Provider: 06/11/18 15:32 Hx Obtained From: Patient Onset/Duration: Lasting Hours - onset today 1530, Still Present Current Severity: None - pain denied Aggrevating Factors: Other - exertion Alleviating Factors: Nothing - Allergy/Home Medications Allergies/Adverse Reactions: Allergies Allergy/AdvReac Type Severity Reaction Status Date / Time budesonide [From Symbicort] Allergy Unknown Verified 06/11/18 15:37 Reaction Details cefuroxime [From Ceftin] Allergy Difficulty Verified 06/11/18 15:37 Breathing formoterol [From Symbicort] Allergy Unknown Verified 06/11/18 15:37 Reaction Details warfarin Allergy Unknown Verified 06/11/18 15:37 Reaction Details amoxicillin [From Augmentin] AdvReac GI Upset Verified 06/11/18 15:37 azithromycin AdvReac GI Upset Verified 06/11/18 15:37 clavulanic acid AdvReac GI Upset Verified 06/11/18 15:37 [From Augmentin] levofloxacin AdvReac Abdominal Verified 06/11/18 15:37 Pain meperidine [From Demerol] AdvReac Hallucinati Verified 06/11/18 15:37 ons Home Medications: Home Medications Acyclovir 500 mg PO BID 06/11/18 [History Confirmed 06/11/18] PMH/Surg Hx/FS Hx/Imm Hx Endocrine/Hematology History: Denies: Hx Anticoagulant Therapy, Hx Diabetes, Hx Thyroid Disease Cardiovascular History: Reports: Hx Hypertension - ON MEDS Denies: Hx Pacemaker/ICD Respiratory History: Reports: Hx Chronic Obstructive Pulmonary Disease (COPD), Other Respiratory Problems/Disorders - 3 L N/C OXYGEN 11/05 Denies: Hx Asthma GI History: Reports: Hx Gastroesophageal Reflux Disease - r/t ibuprofen usage Denies: Hx Ulcer History: Denies: Hx Renal Disease Sensory History: Reports: Hx Contacts or Glasses - GLASSES Denies: Hx Cataracts, Hx Hearing Aid Opthamlomology History: Reports: Hx Contacts or Glasses - GLASSES Denies: Hx Cataracts Neurological History: Reports: Hx Headaches - pontine lesion 2006, HEADACHES EVER SINCE, Hx Migraine - CONSTANT Psychiatric History: Denies: Hx Panic Disorder - Cancer History Cancer Type, Location and Year: SINUS TUMOR Hx Chemotherapy: No - Surgical History Surgery Procedure, Year, and Place: APPENDIX, LEFT INDEX AND PARTIAL RING FINGER AMPUTATION Hx Anesthesia Reactions: No Infectious Disease History: No Infectious Disease History: Denies: Hx Clostridium Difficile, Hx Hepatitis, Hx Human Immunodeficiency Virus (HIV), Hx of Known/Suspected MRSA, Hx Shingles, Hx Tuberculosis, Hx Known/ Suspected VRE, Hx Known/Suspected VRSA, History Other Infectious Disease, Traveled Outside the [place] in Last 30 Days - Family History Known Family History: Positive: Other - brother: colon CA - Social History Alcohol Use: None Hx Substance Use: No Substance Use Type: Reports: None Hx Tobacco Use: No Smoking Status (MU): Former Smoker Type: Cigarettes Amount Used/How Often: smoked for 53 years 1-1.5 ppd Length of Time of Smoking/Using Tobacco: 53 YRS Have You Smoked in the Last Year: Yes Review of Systems Negative: Fever - on vitals, temp is 98 F Positive: Other - difficulty swallowing Positive: Shortness Of Breath All Other Systems Reviewed And Are Negative: Yes Physical Exam - Summary Physical Exam Summary: GENERAL: Patient is a well developed and nourished male who is lying comfortable in the stretcher. Patient is not in any acute respiratory distress. HEAD AND FACE: Normocephalic EYES: PERRLA, EOMI x 2. MOUTH: Oropharynx within normal limits. NECK: Supple, trachea is midline, no adenopathy, no JVD, no carotid bruit. CHEST: Symmetric, no tenderness at palpation LUNGS: Clear to auscultation bilaterally. No wheezing or crackles. CVS: Regular rate and rhythm, S1 and S2 present, no murmurs or gallops appreciated. ABDOMEN: Soft, non-tender. Bowel sounds are normal. No abdominal abnormal pulsations. EXTREMITIES: Full ROM in all major joints, no edema, no cyanosis or clubbing. NEURO: Alert and oriented x 3. No acute neurological deficits. Speech is normal and follows commands. SKIN: Dry and warm Triage Information Reviewed: Yes Vital Signs On Initial Exam: Initial Vitals Temp Pulse Resp BP Pulse Ox 98.0 F 141 20 108/75 97 06/11/18 15:29 06/11/18 15:29 06/11/18 15:29 06/11/18 15:29 06/11/18 15:29 Vital Signs Reviewed: Yes Diagnostics - Vital Signs Vital Signs Temp Pulse Resp BP Pulse Ox 06/11/18 18:31 100 06/11/18 18:01 130 17 126/73 100 06/11/18 18:00 130 21 100 06/11/18 17:31 133 21 107/71 100 06/11/18 17:01 135 19 137/82 100 06/11/18 17:00 132 27 100 06/11/18 16:31 128 38 149/78 100 06/11/18 16:01 142 16 131/77 100 06/11/18 16:00 28 06/11/18 15:31 20 108/75 06/11/18 15:29 98.0 F 141 36 108/75 97 - Laboratory Lab Results: Lab Results 06/11/18 06/11/18 06/11/18 Range/Units 16:59 16:59 16:59 WBC (3.5-10.8) 10^3/ul RBC (4.00-5.40) 10^6/ul Hgb (14.0-18.0) g/dl Hct (42-52) % MCV (80-94) fL MCH (27-31) pg MCHC (31-36) g/dl RDW (10.5-15) % Plt Count (150-450) 10^3/ul MPV (7.4-10.4) um3 Neut % (Auto) Lymph % (Auto) Jackson % (Auto) Eos % (Auto) Baso % (Auto) Absolute Neuts (auto) Absolute Lymphs (auto) Absolute Monos (auto) Absolute Eos (auto) Absolute Basos (auto) Absolute Nucleated RBC Nucleated RBC % INR (Anticoag Therapy) 1.57 H (0.77-1.02) APTT 122.3 H* (26.0-36.3) seconds Sodium 141 D (135-145) mmol/L Potassium TNP Chloride 103 (101-111) mmol/L Carbon Dioxide 30 (22-32) mmol/L Anion Gap 8 (2-11) mmol/L BUN 5 L (6-24) mg/dL Creatinine 0.53 L (0.67-1.17) mg/dL Est GFR ( Amer) 186.0 (>60) Est GFR (Non-Af Amer) 153.7 (>60) BUN/Creatinine Ratio 9.4 (8-20) Glucose 177 H (70-100) mg/dL Lactic Acid (0.5-2.0) mmol/L Calcium 8.7 (8.6-10.3) mg/dL Magnesium 1.8 L (1.9-2.7) mg/dL Total Bilirubin 0.50 (0.2-1.0) mg/dL AST TNP ALT 8 (7-52) U/L Alkaline Phosphatase 62 (34-104) U/L Troponin I 0.01 0.01 (<0.04) ng/mL B-Natriuretic Peptide ( - 100) pg/mL Total Protein 5.6 L (6.4-8.9) g/dL Albumin 3.0 L (3.2-5.2) g/dL Globulin 2.6 (2-4) g/dL Albumin/Globulin Ratio 1.2 (1-3) TSH Cancelled Free T4 Cancelled Free T3 Cancelled 06/11/18 06/11/18 06/11/18 Range/Units 17:00 17:00 17:57 WBC 0.1 L (3.5-10.8) 10^3/ul RBC 3.29 L (4.00-5.40) 10^6/ul Hgb 10.2 L (14.0-18.0) g/dl Hct 30 L (42-52) % MCV 92 (80-94) fL MCH 31 (27-31) pg MCHC 34 (31-36) g/dl RDW 15 (10.5-15) % Plt Count 86 L D (150-450) 10^3/ul MPV 7.7 (7.4-10.4) um3 Neut % (Auto) Pending Lymph % (Auto) Pending Jackson % (Auto) Pending Eos % (Auto) Pending Baso % (Auto) Pending Absolute Neuts (auto) Pending Absolute Lymphs (auto) Pending Absolute Monos (auto) Pending Absolute Eos (auto) Pending Absolute Basos (auto) Pending Absolute Nucleated RBC Pending Nucleated RBC % Pending INR (Anticoag Therapy) (0.77-1.02) APTT (26.0-36.3) seconds Sodium (135-145) mmol/L Potassium Chloride (101-111) mmol/L Carbon Dioxide (22-32) mmol/L Anion Gap (2-11) mmol/L BUN (6-24) mg/dL Creatinine (0.67-1.17) mg/dL Est GFR ( Amer) (>60) Est GFR (Non-Af Amer) (>60) BUN/Creatinine Ratio (8-20) Glucose (70-100) mg/dL Lactic Acid 2.8 H* (0.5-2.0) mmol/L Calcium (8.6-10.3) mg/dL Magnesium (1.9-2.7) mg/dL Total Bilirubin (0.2-1.0) mg/dL AST ALT (7-52) U/L Alkaline Phosphatase (34-104) U/L Troponin I (<0.04) ng/mL B-Natriuretic Peptide 67 ( - 100) pg/mL Total Protein (6.4-8.9) g/dL Albumin (3.2-5.2) g/dL Globulin (2-4) g/dL Albumin/Globulin Ratio (1-3) TSH Free T4 Free T3 06/11/18 Range/Units 17:57 WBC (3.5-10.8) 10^3/ul RBC (4.00-5.40) 10^6/ul Hgb (14.0-18.0) g/dl Hct (42-52) % MCV (80-94) fL MCH (27-31) pg MCHC (31-36) g/dl RDW (10.5-15) % Plt Count (150-450) 10^3/ul MPV (7.4-10.4) um3 Neut % (Auto) Lymph % (Auto) Jackson % (Auto) Eos % (Auto) Baso % (Auto) Absolute Neuts (auto) Absolute Lymphs (auto) Absolute Monos (auto) Absolute Eos (auto) Absolute Basos (auto) Absolute Nucleated RBC Nucleated RBC % INR (Anticoag Therapy) (0.77-1.02) APTT (26.0-36.3) seconds Sodium (135-145) mmol/L Potassium 3.5 Chloride (101-111) mmol/L Carbon Dioxide (22-32) mmol/L Anion Gap (2-11) mmol/L BUN (6-24) mg/dL Creatinine (0.67-1.17) mg/dL Est GFR ( Amer) (>60) Est GFR (Non-Af Amer) (>60) BUN/Creatinine Ratio (8-20) Glucose (70-100) mg/dL Lactic Acid (0.5-2.0) mmol/L Calcium (8.6-10.3) mg/dL Magnesium (1.9-2.7) mg/dL Total Bilirubin (0.2-1.0) mg/dL AST 5 L ALT (7-52) U/L Alkaline Phosphatase (34-104) U/L Troponin I (<0.04) ng/mL B-Natriuretic Peptide ( - 100) pg/mL Total Protein (6.4-8.9) g/dL Albumin (3.2-5.2) g/dL Globulin (2-4) g/dL Albumin/Globulin Ratio (1-3) TSH Free T4 Free T3 Result Diagrams: 06/11/18 17:57 06/11/18 17:57 Lab Statement: Any lab studies that have been ordered have been reviewed, and results considered in the medical decision making process. - Radiology CXR Xray Interpretation: No Acute Changes Radiology Interpretation Completed By: Radiologist - no active cardiopulmonary disease is noted; this report was reviewed by ED physician. - EKG 1606 Cardiac Rate: Other Rate - RVR at 139 BPM EKG Rhythm: Atrial Fibrillation EKG Interpretation: some ST depression in precordial leads. Re-Evaluation - Re-Evaluation First Eval Re-Evaluation Time: 16:00 Comment: Discussed present results of labs and tests and plan for further workup. Second Eval Re-Evaluation Time: 18:22 Comment: Informed of decision to admit to hospital. Patient is agreeable with plan. Course/Dx - Course Assessment/Plan: Patient is a 68 y/o M w/ c/o SOB onsetting 15:30 today. EMS reports he was 71 O2 sat upon arrival. He states he had difficulty swallowing yesterday. He was seen for Sx, reports they found virus, and is receiving medication for Dx. He also reports he is receiving a lot of other medications. Patient has brain cancer and received treatment yesterday. Hx of afib. Pain is denied, SOB worse with exertion on triage. CXR is normal. EKG showed afib, RVR at [address] depression in precordial leads. Labs showed 2.8 lactic acid, APTT 122.3, WBC 0.1. During Ed course, patient was given fluids and Cardizem 10 mg IV SLOW PUSH ED ONCE ONE. Dr. Ferris was consulted on patients case at 17:50 , he recommends admission to hospital. Dr. Kunz was consulted at 18:10, she accepts patient for admission to [facility]. Patient was diagnosed with afib w RVR. Patient informed of admission, he is agreeable with plan. - Diagnoses Provider Diagnoses: Atrial fibrillation with RVR - Physician Notifications Discussed Care of Patient With: Celestino Ferris Time Discussed With Above Provider: 17:50 Instructed by Provider To: Other - Dr. Ferris was consulted on patients case at 17:50, he recommends admission to hospital. Dr. Kunz was consulted at 18:10, she accepts patient for admission to [facility]. Discharge - Sign-Out/Discharge Documenting (check all that apply): Patient Departure - admit - Discharge Plan Condition: Good Disposition: ADMITTED TO [facility] Referrals: Kevin Green MD [Primary Care Provider] - - Attestation Statements Document Initiated by Scribe: Yes Documenting Scribe: Stefan Escoto Provider For Whom Willie is Documenting (Include Credential): Belinda Sams M.D. Scribe Attestation: Stefan Lou, scribed for Belinda Sams M.D. on 06/11/18 at 1944.
[2018-06-11 19:50] LABS: ABS Basophils 0 10^3/ul (0-0.2); ABS Eosinophils 0 10^3/ul (0-0.6); ABS Lymphocytes 0 10^3/ul (1.0-4.8); ABS Monocytes 0 10^3/ul (0-0.8); ABS Neutrophils 0 10^3/ul (1.5-7.7); ABS Nucleated RBC 0 10^3/ul; Eosinophil % 4.7 % (0-6); Lymphocyte % 55.9 % (25-47); Nucleated Red Blood Cells % 1.4
--- NOTE | 2018-06-11 20:29 | HP ---
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 He had some mild chest discomfort which has resolved and intermittent light- headedness. He denies any N/V, sweating, palpitations, F/C, cough, congestion, or other issues. ED has been unable to access his port or establish an IV at this time. He has not yet received a CTA of the chest as a result. However, images for a CTA chest dated earlier today from another patient are in his EMR which has created confusion as well. Radiology is aware and attempting to remove. Additionally, his cell counts are highly abnormal and were delayed in being released until they could be confirmed by the Pathologist. Otherwise, his ECG shows new onset AFIB/AFLUT rate 139. PMedHx DLBCL nasal/sphenoid sinus/pituitary stalk on BX 05/19/2018 s/p Ommaya reservoir 06/03 COPD, emphysema HTN dilated aortic root 4.7cm chronic hypercarbic respiratory failure hypothyroidism benign pontine lesion headaches GERD gout Ambulatory Orders Butalb/Acetamin/Caff TAB* [Fioricet TAB*] 1 tab PO BID PRN 09/01/17 Nortriptyline CAP* [Nortriptylline CAP*] 10 mg PO BEDTIME 09/01/17 Omeprazole CAP* [Prilosec CAP* 20 MG] 40 mg PO DAILY@0730 #60 09/04/17 Acetaminophen TAB* [Tylenol TAB*] 650 mg PO Q6H PRN tab 02/15/18 amLODIPine TAB* [Norvasc 5 mg TAB*] 10 mg PO DAILY #30 tab 02/15/18 Albuterol HFA INHALER* [Ventolin HFA Inhaler*] 1 puff INH Q6H PRN 04/26/18 Gabapentin CAP(*) [Neurontin 300 CAP(*)] 300 mg PO QPM 04/26/18 Ranitidine TAB (NF) [Zantac TAB (NF)] 150 mg PO BID 04/26/18 Oxycodone HCl/Acetaminophen [Endocet 10-325 mg Tablet] 2 each PO Q6H PRN #40 tablet MDD 8 05/19/18 Saline NASAL SPRAY 0.65%* 2 spray BOTH NARES Q6HR PRN 05/24/18 Allopurinol TAB* [Zyloprim 300 MG TAB*] 300 mg PO DAILY #30 tab 06/05/18 Filgrastim [Neupogen] 300 mcg SUBCUT DAILY #10 syringe 06/05/18 Levothyroxine TAB* [Synthroid 25 MCG TAB*] 50 mcg PO DAILY #30 tab 06/05/18 Nystatin SUSPENSION* 500,000 units PO QID #40 dose 06/05/18 Ondansetron ODT TAB* [Zofran 4 MG Odt TAB*] 4 mg SL Q6H PRN #40 tab 06/05/18 Prochlorperazine TAB* [Compazine Tab*] 10 mg PO Q6H PRN #40 tab 06/05/18 Sulfamethox/Trimethoprim DS* [Bactrim DS 800/160 TAB*] 1 tab PO MoWeFr #12 tab 06/05/18 Filgrastim [Neupogen] 300 mcg SUBCUT DAILY #1 inj 06/06/18 Acyclovir 500 mg PO BID 06/11/18 Allergies budesonide [From Symbicort] Allergy (Verified 06/11/18 15:37) Unknown Reaction Details cefuroxime [From Ceftin] Allergy (Verified 06/11/18 15:37) Difficulty Breathing formoterol [From Symbicort] Allergy (Verified 06/11/18 15:37) Unknown Reaction Details warfarin Allergy (Verified 06/11/18 15:37) Unknown Reaction Details can not walk or stand amoxicillin [From Augmentin] Adverse Reaction (Verified 06/11/18 15:37) GI Upset azithromycin Adverse Reaction (Verified 06/11/18 15:37) GI Upset clavulanic acid [From Augmentin] Adverse Reaction (Verified 06/11/18 15:37) GI Upset levofloxacin Adverse Reaction (Verified 06/11/18 15:37) Abdominal Pain meperidine [From Demerol] Adverse Reaction (Verified 06/11/18 15:37) Hallucinations PSurgHx Ommay reservoir placement 06/03/2018 appendectomy nasal surgery 05/19 for mass suspicious for high-grade lymphoma SocHx: quit smoking Aug 2017 w/ ~50 PYHX, mild alcohol, no recreational drugs; lives with his ; full code status FamHx: positive for CAD, colon CA, lymphoma, & brain tumor ROS: as above, otherwise reviewed and all were negative vitals: Vital Signs Temp 36.7 C 06/11/18 15:29 Pulse 129 06/11/18 19:31 Resp 19 06/11/18 19:31 BP 118/69 06/11/18 19:31 Pulse Ox 100 06/11/18 19:31 Constitutional: NAD, normally developed, white male HEENM: atraumatic; sclera/conjunctiva: anicteric/clear; hearing: clinically intact; oropharynx: clear, mucosa moist Neck: soft tissue: non-tender; thyroid: normal Pulmonary: diminished bilaterally, fair aeration, no accessory muscle use CV: TR/RR, normal S1S2, no carotid bruit, no jugular venous distention, 2+ B DP/ PT, 1+ BLE edema Abdominal: soft, non-distended, non-tender, no rebound/guarding/rigidity, normoactive bowel sounds, no hepatosplenomegaly or masses, no costovertebral angle tenderness Musculoskeletal: general: grossly intact, non-tender to palpation, negative Tamy's B Integumental: normal appearance and texture of exposed skin Psychiatric orientation: AA&O to PPS affect: calm mood: cooperative eye contact: good content: reliable responses: timely insight: fair Testing: Lab Results 06/11/18 06/11/18 06/11/18 Range/Units 16:59 16:59 16:59 WBC (3.5-10.8) 10^3/ul RBC (4.00-5.40) 10^6/ul Hgb (14.0-18.0) g/dl Hct (42-52) % MCV (80-94) fL MCH (27-31) pg MCHC (31-36) g/dl RDW (10.5-15) % Plt Count (150-450) 10^3/ul MPV (7.4-10.4) um3 Neut % (Auto) (38-83) % Lymph % (Auto) (25-47) % Jennings % (Auto) (0-7) % Eos % (Auto) (0-6) % Baso % (Auto) (0-2) % Absolute Neuts (auto) (1.5-7.7) 10^3/ul Absolute Lymphs (auto) (1.0-4.8) 10^3/ul Absolute Monos (auto) (0-0.8) 10^3/ul Absolute Eos (auto) (0-0.6) 10^3/ul Absolute Basos (auto) (0-0.2) 10^3/ul Absolute Nucleated RBC 10^3/ul Nucleated RBC % INR (Anticoag Therapy) 1.57 H (0.77-1.02) APTT 122.3 H* (26.0-36.3) seconds Sodium 141 D (135-145) mmol/L Potassium TNP Chloride 103 (101-111) mmol/L Carbon Dioxide 30 (22-32) mmol/L Anion Gap 8 (2-11) mmol/L BUN 5 L (6-24) mg/dL Creatinine 0.53 L (0.67-1.17) mg/dL Est GFR ( Amer) 186.0 (>60) Est GFR (Non-Af Amer) 153.7 (>60) BUN/Creatinine Ratio 9.4 (8-20) Glucose 177 H (70-100) mg/dL Lactic Acid (0.5-2.0) mmol/L Calcium 8.7 (8.6-10.3) mg/dL Magnesium 1.8 L (1.9-2.7) mg/dL Total Bilirubin 0.50 (0.2-1.0) mg/dL AST TNP ALT 8 (7-52) U/L Alkaline Phosphatase 62 (34-104) U/L Troponin I 0.01 0.01 (<0.04) ng/mL B-Natriuretic Peptide ( - 100) pg/mL Total Protein 5.6 L (6.4-8.9) g/dL Albumin 3.0 L (3.2-5.2) g/dL Globulin 2.6 (2-4) g/dL Albumin/Globulin Ratio 1.2 (1-3) TSH Cancelled Free T4 Cancelled Free T3 Cancelled 06/11/18 06/11/18 06/11/18 Range/Units 17:00 17:00 17:57 WBC 0.1 L (3.5-10.8) 10^3/ul RBC 3.29 L (4.00-5.40) 10^6/ul Hgb 10.2 L (14.0-18.0) g/dl Hct 30 L (42-52) % MCV 92 (80-94) fL MCH 31 (27-31) pg MCHC 34 (31-36) g/dl RDW 15 (10.5-15) % Plt Count 86 L D (150-450) 10^3/ul MPV 7.7 (7.4-10.4) um3 Neut % (Auto) 26.0 L (38-83) % Lymph % (Auto) 55.9 H (25-47) % Jennings % (Auto) 13.4 H (0-7) % Eos % (Auto) 4.7 (0-6) % Baso % (Auto) 0 (0-2) % Absolute Neuts (auto) 0 L* (1.5-7.7) 10^3/ul Absolute Lymphs (auto) 0 L (1.0-4.8) 10^3/ul Absolute Monos (auto) 0 (0-0.8) 10^3/ul Absolute Eos (auto) 0 (0-0.6) 10^3/ul Absolute Basos (auto) 0 (0-0.2) 10^3/ul Absolute Nucleated RBC 0 10^3/ul Nucleated RBC % 1.4 INR (Anticoag Therapy) (0.77-1.02) APTT (26.0-36.3) seconds Sodium (135-145) mmol/L Potassium Chloride (101-111) mmol/L Carbon Dioxide (22-32) mmol/L Anion Gap (2-11) mmol/L BUN (6-24) mg/dL Creatinine (0.67-1.17) mg/dL Est GFR ( Amer) (>60) Est GFR (Non-Af Amer) (>60) BUN/Creatinine Ratio (8-20) Glucose (70-100) mg/dL Lactic Acid 2.8 H* (0.5-2.0) mmol/L Calcium (8.6-10.3) mg/dL Magnesium (1.9-2.7) mg/dL Total Bilirubin (0.2-1.0) mg/dL AST ALT (7-52) U/L Alkaline Phosphatase (34-104) U/L Troponin I (<0.04) ng/mL B-Natriuretic Peptide 67 ( - 100) pg/mL Total Protein (6.4-8.9) g/dL Albumin (3.2-5.2) g/dL Globulin (2-4) g/dL Albumin/Globulin Ratio (1-3) TSH Free T4 Free T3 06/11/18 06/11/18 Range/Units 17:57 19:05 WBC (3.5-10.8) 10^3/ul RBC (4.00-5.40) 10^6/ul Hgb (14.0-18.0) g/dl Hct (42-52) % MCV (80-94) fL MCH (27-31) pg MCHC (31-36) g/dl RDW (10.5-15) % Plt Count (150-450) 10^3/ul MPV (7.4-10.4) um3 Neut % (Auto) (38-83) % Lymph % (Auto) (25-47) % Jennings % (Auto) (0-7) % Eos % (Auto) (0-6) % Baso % (Auto) (0-2) % Absolute Neuts (auto) (1.5-7.7) 10^3/ul Absolute Lymphs (auto) (1.0-4.8) 10^3/ul Absolute Monos (auto) (0-0.8) 10^3/ul Absolute Eos (auto) (0-0.6) 10^3/ul Absolute Basos (auto) (0-0.2) 10^3/ul Absolute Nucleated RBC 10^3/ul Nucleated RBC % INR (Anticoag Therapy) (0.77-1.02) APTT (26.0-36.3) seconds Sodium (135-145) mmol/L Potassium 3.5 Chloride (101-111) mmol/L Carbon Dioxide (22-32) mmol/L Anion Gap (2-11) mmol/L BUN (6-24) mg/dL Creatinine (0.67-1.17) mg/dL Est GFR ( Amer) (>60) Est GFR (Non-Af Amer) (>60) BUN/Creatinine Ratio (8-20) Glucose (70-100) mg/dL Lactic Acid (0.5-2.0) mmol/L Calcium (8.6-10.3) mg/dL Magnesium (1.9-2.7) mg/dL Total Bilirubin (0.2-1.0) mg/dL AST 5 L ALT (7-52) U/L Alkaline Phosphatase (34-104) U/L Troponin I (<0.04) ng/mL B-Natriuretic Peptide ( - 100) pg/mL Total Protein (6.4-8.9) g/dL Albumin (3.2-5.2) g/dL Globulin (2-4) g/dL Albumin/Globulin Ratio (1-3) TSH 0.00 L Free T4 1.80 H Free T3 3.40 ECG, personally reviewed: AFIB/AFLUT rate 139, mild ST depression CXR, personally reviewed: IMPRESSION: NO ACTIVE CARDIOPULMONARY DISEASE IS NOTED. CTA chest, personally reviewed: IMPRESSION: 1. No pulmonary emboli. 2. Emphysema with new left lower lobe tiny pulmonary nodules. Based on current Joan criteria, if high risk optional followup chest CT in 12 months recommended. 3. Interval left seventh rib fracture with associated pleural scarring. 4. Stable aneurysmally dilated aortic root. 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/ANC zero : acyclovir 10mg/kg IV Q8H : piperacillin/tazobactam IV (no cefepime 2nd cefuroxime allergy) : viscous lidocaine 15cc mixed 1:1 with water swish & swallow AC DLBCL w/ severe neutropenia/ANC zero : management per oncology : last Ommaya TX Thursday : last IV chemoTX 06/04 : strict neutropenic precautions chest discomfort : trend troponin : telemetry Secondary COPD, emphysema chronic hypercarbic respiratory failure : continue albuterol HTN : D/C amlodipine : start diltiazem CD once off GTT dilated aortic root 4.7cm : no acute issues hypothyroidism : continue levothyroxine headaches : continue butalb/acetamin/caff GERD : continue omeprazole & ranitidine gout : continue allopurinol Admission Rational: inpatient for new onset AFIB/AFLUT, neutropenia, & herpetic stomatitis not anticipated to be adequately managed w/i 48h to allow for discharge DVTp: SCDs Code Status: full code status HCP: Critical Care time: 70min with >50% spent at the bedside obtaining a history, performing the examination, advising of diagnosis & treatment options along with risks/benefits/reasoning; remainder spent discussing with ER MD, reviewing labs and radiology exams
[2018-06-11] MEDS ORDERED: Melatonin 3 MG TAB PO PRN (22:13)
[2018-06-11] MEDS ORDERED: Saline NASAL SPRAY 0.65%* BTL BOTH NARES PRN (22:14)
[2018-06-11] MEDS ORDERED: Ondansetron ODT TAB* 4 MG SL PRN (22:14)
[2018-06-11] MEDS ORDERED: Butalb/Acetamin/Caff TAB* 1 TAB PO PRN (22:14)
[2018-06-11] MEDS ORDERED: Albuterol HFA INHALER* 8 gm MDI INH PRN (22:14)
[2018-06-11] MEDS ORDERED: Prochlorperazine TAB* 10 MG PO PRN (22:14)
[2018-06-11] MEDS ORDERED: oxyCODONE TAB* 5 MG TAB PO PRN (22:27)
[2018-06-11] MEDS: Diltiazem IV VIAL* 125 MG in NS 0.9% 100 ML* 100 ML IVPB ONE ×3 (22:35→23:53)
[2018-06-11] MEDS ORDERED: Sulfamethox/Trimethoprim DS 800/160* TAB PO SCH (23:00)
--- NOTE | 2018-06-11 23:26 | RAD ---
EXAM: CT Angiography Chest With Intravenous Contrast CLINICAL HISTORY: 68 years old, male; Signs and symptoms; Dyspnea and shortness of breath; Patient HX: Neutropenic; Additional info: Acute SOB, HX cancer, R/O pe TECHNIQUE: Axial computed tomographic angiography images of the chest with intravenous contrast using pulmonary embolism protocol. All CT scans at this facility use at least one of these dose optimization techniques: automated exposure control; mA and/or kV adjustment per patient size (includes targeted exams where dose is matched to clinical indication); or iterative reconstruction. 3D and MIP reconstructed images were created and reviewed. Coronal and sagittal reformatted images were created and reviewed. CONTRAST: 64 mL of OMNIPAQUE 350 administered intravenously. COMPARISON: CTA CHEST CTA CHEST 02/11/2018 12:46 AM FINDINGS: Pulmonary arteries: Pulmonary arteries are well opacified to the subsegmental branches. Normal caliber main pulmonary artery. No filling defects throughout the pulmonary artery tree. Aorta: Fusiform aneurysmal dilation of the aortic root measuring up to 5.5 cm similar to prior study. No adjacent hematoma or stranding. The aorta demonstrates moderate atherosclerotic calcification. Lungs: Moderate centrilobular emphysematous disease. Adjacent groundglass nodules posterior basal segment left lower lobe measures 0.5 cm (series 3, image 51) and 0.4 cm (series 3, image 52) which are not seen previously. Adjacent subsegmental atelectasis. No consolidation or masses. No bronchiectasis, peribronchial thickening, or luminal defects. Pleural space: Minimal nodular pleural thickening posterior left mid thorax which underlies the newly seen fractured rib. No effusion or pneumothorax. Heart: There is mild atherosclerotic calcification of the coronary arteries. Thyroid: No thyroid nodules. Bones/joints: The thoracic spine demonstrates mild degenerative changes at multiple levels. Interval healing fracture of the posterior left seventh rib. No additional rib fractures. No fractures. No suspicious bone lesions. Soft tissues: Normal. Lymph nodes: Normal. No enlarged lymph nodes. Adrenals: No adrenal nodules. Tubes, lines and devices: Right chest infusion port terminates at the cavoatrial junction. IMPRESSION: 1. No pulmonary emboli. 2. Emphysema with new left lower lobe tiny pulmonary nodules. Based on current Joan criteria, if high risk optional followup chest CT in 12 months recommended. 3. Interval left seventh rib fracture with associated pleural scarring. 4. Stable aneurysmally dilated aortic root. Guidelines for Management of Incidental Pulmonary Nodules Detected on CT Images: From the Fleischner Society 2017. Kalyani H et al. Radiology. 2017 Feb 23:[id number].
[2018-06-11] MEDS ORDERED: NS 0.9% 1000 ML* 1,500 ML IV ONE (23:45)
[2018-06-11] MEDS: oxyCODONE/Acetamin 5/325 MG* TAB PO PRN (23:58)
[2018-06-12] MEDS: Acyclovir IV(*) 600 MG in NS 0.9% 100 ML* 100 ML IVPB SCH ×3 (01:16→17:19)
[2018-06-12] MEDS: NS 0.9% 1000 ML* 1,000 ML IV SCH ×2 (01:16→10:01)
[2018-06-12] MEDS: Diltiazem IV VIAL* 125 MG in NS 0.9% 100 ML* 100 ML IVPB ONE (02:07)
[2018-06-12] MEDS: Piperacillin/Tazobac ADVAN(*) 3.375 GM in NS 0.9% 100 ML* 100 ML IVPB SCH ×3 (02:08→18:21)
[2018-06-12 04:18] LABS: EGFR Non-African American 150.4 (>60)
[2018-06-12 04:35] LABS: Urine Appearance Clear; Urine Blood Negative (Negative); Urine Color Straw; Urine Ketones Negative (Negative); Urine Protein Negative (Negative); Urine Specific Gravity 1.008 (1.010-1.030); Urine Urobilinogen Negative (Negative)
[2018-06-12] MEDS ORDERED: Diltiazem IV VIAL* 125 MG in NS 0.9% 100 ML* 100 ML IVPB ONE (04:53)
[2018-06-12 05:03] LABS: ABS Basophils 0 10^3/ul (0-0.2); ABS Eosinophils 0 10^3/ul (0-0.6); ABS Lymphocytes 0.1 10^3/ul (1.0-4.8); ABS Monocytes 0 10^3/ul (0-0.8); ABS Neutrophils 0 10^3/ul (1.5-7.7); ABS Nucleated RBC 0 10^3/ul; Eosinophil % 0.7 % (0-6); Hematocrit 26 % (42-52); Hemoglobin 8.8 g/dl (14.0-18.0); Lymphocyte % 82.7 % (25-47); Mean Corpuscular HGB Conc 34 g/dl (31-36); Mean Corpuscular Hemoglobin 31 pg (27-31); Mean Corpuscular Volume 92 fL (80-94); Mean Platelet Volume 7.4 um3 (7.4-10.4); Platelet Count 73 10^3/ul (150-450); Red Blood Count 2.85 10^6/ul (4.00-5.40); Red Cell Distribution Width 15 % (10.5-15); White Blood Count 0.1 10^3/ul (3.5-10.8)
[2018-06-12] MEDS: Potassium Chlor TAB* 20 MEQ TAB.ER PO SCH ×2 (05:26→08:23)
[2018-06-12] MEDS ORDERED: Levothyroxine TAB* 50 MCG TAB PO SCH (06:00)
[2018-06-12] MEDS ORDERED: Acyclovir* 400 MG TAB PO SCH (06:00)
[2018-06-12] MEDS: Lidocaine 2% VISCOUS* 15 ML UDC SWISH SWAL SCH ×3 (08:12→17:15)
[2018-06-12] MEDS: Omeprazole CAP* 20 MG PO SCH (08:21)
[2018-06-12] MEDS: Allopurinol TAB* 300 MG PO SCH (08:22)
[2018-06-12] MEDS: Famotidine TAB* 20 MG PO SCH ×2 (08:23→22:07)
[2018-06-12] MEDS: Docusate CAP* 100 MG PO SCH ×2 (08:26→22:06)
[2018-06-12] MEDS: oxyCODONE/Acetamin 5/325 MG* TAB PO PRN ×2 (11:42→22:06)
[2018-06-12] MEDS: KCL 20 MEQ/100 ML IVPREMIX* 20 MEQ/100 ML BAG IV SCH ×2 (14:50→17:18)
[2018-06-12] MEDS: FILGRASTIM-SNDZ* 480 MCG/0.8 ML SYRINGE SUBCUT SCH (14:50)
[2018-06-12] MEDS: Nystatin SUSPENSION* 100000 UNITS/ML 5 ML UDC PO SCH ×2 (17:13→22:13)
[2018-06-12] MEDS: Gabapentin CAP(*) 300 MG PO SCH (17:19)
[2018-06-12 17:27] LABS: EGFR Non-African American 138.5 (>60)
[2018-06-12] MEDS: Morphine INJ* 2 MG/ML 1 ML SYRINGE (TWO MG - NEW SYRINGE VERSION) IV PRN (17:55)
[2018-06-12] MEDS: Nortriptyline CAP* 10 MG PO SCH (22:06)
[2018-06-12] MEDS: Metoprolol Tartrate TAB* 25 MG PO SCH (22:08)
[2018-06-13] MEDS: Acyclovir IV(*) 600 MG in NS 0.9% 100 ML* 100 ML IVPB SCH ×3 (01:30→17:15)
[2018-06-13] MEDS: Piperacillin/Tazobac ADVAN(*) 3.375 GM in NS 0.9% 100 ML* 100 ML IVPB SCH ×3 (03:12→18:51)
[2018-06-13 07:02] LABS: Hematocrit 27 % (42-52); Hemoglobin 9.3 g/dl (14.0-18.0); Mean Corpuscular HGB Conc 34 g/dl (31-36); Mean Corpuscular Hemoglobin 32 pg (27-31); Mean Corpuscular Volume 94 fL (80-94); Red Blood Count 2.93 10^6/ul (4.00-5.40); Red Cell Distribution Width 16 % (10.5-15); White Blood Count 0.2 10^3/ul (3.5-10.8)
[2018-06-13 07:09] LABS: EGFR Non-African American 125.9 (>60)
[2018-06-13] MEDS: Metoprolol Tartrate TAB* 25 MG PO SCH ×2 (07:42→21:53)
[2018-06-13] MEDS ORDERED: D5W 1000 ML BAG* 1,000 ML IVPB SCH ×2 (08:15→17:00)
[2018-06-13 08:27] LABS: ABS Basophils 0 10^3/ul (0-0.2); ABS Eosinophils 0 10^3/ul (0-0.6); ABS Lymphocytes 0.1 10^3/ul (1.0-4.8); ABS Monocytes 0 10^3/ul (0-0.8); ABS Neutrophils 0 10^3/ul (1.5-7.7); ABS Nucleated RBC 0 10^3/ul; Eosinophil % 9.1 % (0-6); Lymphocyte % 74.3 % (25-47); Mean Platelet Volume 7.6 um3 (7.4-10.4); Nucleated Red Blood Cells % 0; Platelet Count 48 10^3/ul (150-450)
[2018-06-13 10:51] LABS: EGFR Non-African American 109.7 (>60)
[2018-06-13] MEDS: Morphine INJ* 2 MG/ML 1 ML SYRINGE (TWO MG - NEW SYRINGE VERSION) IV PRN ×5 (11:06→23:36)
[2018-06-13] MEDS: Lidocaine 2% VISCOUS* 15 ML UDC SWISH SWAL SCH ×3 (11:08→17:03)
[2018-06-13] MEDS: Omeprazole CAP* 20 MG PO SCH (11:08)
[2018-06-13] MEDS: Allopurinol TAB* 300 MG PO SCH (11:08)
[2018-06-13] MEDS: Docusate CAP* 100 MG PO SCH ×2 (11:08→21:53)
[2018-06-13] MEDS: Famotidine TAB* 20 MG PO SCH (11:08)
[2018-06-13] MEDS: Nystatin SUSPENSION* 100000 UNITS/ML 5 ML UDC PO SCH ×4 (11:08→21:53)
[2018-06-13] MEDS: FILGRASTIM-SNDZ* 480 MCG/0.8 ML SYRINGE SUBCUT SCH (11:18)
[2018-06-13] MEDS ORDERED: Iohexol 300* (CONTRAST) 10 ML SDV IV ONE (13:28)
--- NOTE | 2018-06-13 14:57 | RAD ---
CLINICAL HISTORY: Abdominal pain. Relevant surgical history includes appendectomy. COMPARISON: Most recent comparison CT examination is dated May 22, 2018 TECHNIQUE: Contrast enhanced CT examination of the abdomen and pelvis from the lung bases through the initial tuberosities. The patient received 84 mL Omnipaque 350 intravenously prior to imaging.The patient received oral contrast as well prior to imaging. FINDINGS: Unless otherwise specified comparisons below reference the CT dated May 22, 2018 VISUALIZED LUNG BASES: The visualized lung bases are grossly clear. There is no pleural effusion. ABDOMEN AND PELVIS: The liver, spleen, pancreas and adrenal glands are grossly normal in appearance. The gallbladder appears mildly distended measuring 5.2 cm in diameter. This is similar to the previous CT examination. There is no definite pericholecystic fluid. The kidneys are normal in appearance without focal mass, calcification or signs of hydronephrosis. Delayed phase images show symmetric excretion of contrast. Hightower catheter is noted with the balloon filling the otherwise decompressed urinary bladder. The small and large bowel are not distended. Consistent with the patient's reported surgical history, the appendix is not visualized. There is no gross retroperitoneal or mesenteric lymphadenopathy. The pelvic viscera is normal in appearance. There is atherosclerotic calcification of the lower abdominal aorta extending into the bilateral iliac arteries. The right common iliac artery appears narrowed. Eccentric coarse calcification is noted at the bilateral common femoral arteries as well. Degenerative changes include multilevel loss of intervertebral disc height involving the lower thoracic and lumbar spine.There are no sinister bone lesions. IMPRESSION: 1. Again noted is a top normal but not pathologically distended gallbladder measuring 5.2 cm in diameter. If the patient is exhibiting any clinical features of acute cholecystitis superior characterization can be made with ultrasound of the right upper quadrant. 2. Coarse atherosclerotic calcification appears to cause narrowing of the right common iliac artery. 3. There are additional chronic and degenerative changes described in body the report.
[2018-06-13 15:18] LABS: EGFR Non-African American 113.4 (>60)
[2018-06-13] MEDS: Gabapentin CAP(*) 300 MG PO SCH (16:15)
[2018-06-13 21:21] LABS: EGFR Non-African American 117.3 (>60)
[2018-06-13] MEDS: Famotidine IV* 10 MG/ML 2 ML (20 mg) IV SCH (21:46)
[2018-06-13] MEDS: Desmopressin Acetate* 4 MCG/ML 1 ML SDV SUBCUT SCH (21:46)
[2018-06-13] MEDS: Nortriptyline CAP* 10 MG PO SCH (21:53)
[2018-06-14] MEDS: Acyclovir IV(*) 600 MG in NS 0.9% 100 ML* 100 ML IVPB SCH ×3 (03:05→17:43)
[2018-06-14] MEDS: Piperacillin/Tazobac ADVAN(*) 3.375 GM in NS 0.9% 100 ML* 100 ML IVPB SCH ×2 (03:24→10:02)
[2018-06-14] MEDS: Morphine INJ* 2 MG/ML 1 ML SYRINGE (TWO MG - NEW SYRINGE VERSION) IV PRN ×3 (04:24→11:20)
--- NOTE | 2018-06-14 04:28 | PN ---
Progress Note - Progress Note Date of Service: 06/14/18 Note: Paged for temp of 100.7 - Patient also neutropenic. Will order Blood cx x 2 - including one from port. Will check U/A. Add vancomycin. Patient already on zosyn.
[2018-06-14] MEDS ORDERED: Vancomycin(*) 1,500 MG in NS 0.9% 250 ML* 250 ML IVPB ONE (04:45)
[2018-06-14] MEDS ORDERED: Vancomycin per Pharmacy* NOTE FOLLOW UP SCH (05:00)
[2018-06-14 05:34] LABS: EGFR Non-African American 123.6 (>60)
[2018-06-14 06:22] LABS: Hematocrit 22 % (42-52); Hemoglobin 7.3 g/dl (14.0-18.0); Mean Corpuscular HGB Conc 33 g/dl (31-36); Mean Corpuscular Hemoglobin 32 pg (27-31); Mean Corpuscular Volume 96 fL (80-94); Red Blood Count 2.32 10^6/ul (4.00-5.40); Red Cell Distribution Width 16 % (10.5-15); White Blood Count 0.3 10^3/ul (3.5-10.8)
[2018-06-14 08:14] LABS: Mean Platelet Volume 8.1 um3 (7.4-10.4); Platelet Count 23 10^3/ul (150-450)
[2018-06-14 08:24] LABS: ABS Basophils 0 10^3/ul (0-0.2); ABS Neutrophils 0 10^3/ul (1.5-7.7); ABS Neutrophils 0.1 10^3/ul (1.5-7.7); Monocytes % 0 % (0-7)
[2018-06-14 08:26] LABS: Urine Appearance Cloudy; Urine Blood 2+ (Negative); Urine Color Yellow; Urine Ketones Negative (Negative); Urine Protein Negative (Negative); Urine Red Blood Cell 2+(6-10/hpf) (Absent); Urine Urobilinogen Negative (Negative); Urine White Blood Cell Trace(0-5/hpf) (Absent)
[2018-06-14] MEDS: Desmopressin Acetate* 4 MCG/ML 1 ML SDV SUBCUT SCH (08:50)
[2018-06-14] MEDS: FILGRASTIM-SNDZ* 480 MCG/0.8 ML SYRINGE SUBCUT SCH (08:51)
[2018-06-14] MEDS: Lidocaine 2% VISCOUS* 15 ML UDC SWISH SWAL SCH ×3 (09:01→16:40)
[2018-06-14] MEDS: Allopurinol TAB* 300 MG PO SCH (09:02)
[2018-06-14] MEDS: Metoprolol Tartrate TAB* 25 MG PO SCH (09:02)
[2018-06-14] MEDS: Docusate CAP* 100 MG PO SCH (09:02)
[2018-06-14] MEDS: Nystatin SUSPENSION* 100000 UNITS/ML 5 ML UDC PO SCH ×3 (09:03→16:40)
[2018-06-14] MEDS: Famotidine IV* 10 MG/ML 2 ML (20 mg) IV SCH (09:45)
--- NOTE | 2018-06-14 10:58 | PN ---
Progress Note - Progress Note Date of Service: 06/14/18 SOAP: Subjective: []He is in pain, diffuse with touch. Breathing is labored. Oriented to place. Acetaminophen/Butalbital/Caffeine (Fioricet Tab*) 1 tab PO BID PRN PRN Reason: HEADACHE Albuterol (Ventolin Hfa Inhaler*) 1 puff INH Q6H PRN PRN Reason: SHORTNESS OF BREATH Allopurinol (Zyloprim Tab*) 300 mg PO DAILY [facility] Last Admin: 06/14/18 09:02 Dose: Not Given Desmopressin Acetate (Ddavp*) 1 mcg SUBCUT BID [facility] Last Admin: 06/14/18 08:50 Dose: 1 mcg Docusate Sodium (Colace Cap*) 200 mg PO BID [facility] Last Admin: 06/14/18 09:02 Dose: Not Given Famotidine (Pepcid Iv*) 20 mg IV BID [facility]; Protocol Last Admin: 06/14/18 09:45 Dose: 20 mg Filgrastim-Sndz (Zarxio*) 480 mcg SUBCUT DAILY [facility] Last Admin: 06/14/18 08:51 Dose: 480 mcg Gabapentin (Neurontin Cap(*)) 300 mg PO QPM [facility] Last Admin: 06/13/18 16:15 Dose: Not Given Acyclovir Sodium 600 mg/ (Sodium Chloride) 112 mls @ 112 mls/hr IVPB Q8H [facility] Last Admin: 06/14/18 10:47 Dose: 112 mls/hr Piperacillin Sod/Tazobactam (Sod 3.375 gm/ Sodium Chloride) 100 mls @ 25 mls/ hr IVPB Q8H [facility] Last Admin: 06/14/18 10:02 Dose: 25 mls/hr Dextrose (D5w 1000 Ml Bag*) 1,000 mls @ 100 mls/hr IVPB .PER RATE [facility] Last Admin: 06/13/18 17:28 Dose: 150 mls/hr Vancomycin HCl 1,000 mg/ (Sodium Chloride) 250 mls @ 166.667 mls/hr IVPB Q8H [facility] Lidocaine (Xylocaine 2% Viscous*) 15 ml SWISH SWAL AC [facility] Last Admin: 06/14/18 09:01 Dose: Not Given Melatonin (Melatonin) 3 mg PO BEDTIME PRN; Protocol PRN Reason: Sleep Last Admin: 06/12/18 02:07 Dose: 3 mg Metoprolol Tartrate (Lopressor Tab*) 12.5 mg PO Q12HR [facility] Last Admin: 06/14/18 09:02 Dose: Not Given Morphine Sulfate (Morphine Inj ((Syringe))*) 3 mg IV Q2H PRN PRN Reason: PAIN Last Admin: 06/14/18 08:51 Dose: 3 mg Nortriptyline HCl (Pamelor Cap*) 10 mg PO BEDTIME [facility] Last Admin: 06/13/18 21:53 Dose: Not Given Nystatin (Nystatin Suspension*) 100,000 units PO QID [facility] Last Admin: 06/14/18 09:03 Dose: Not Given Ondansetron HCl (Zofran Odt Tab*) 4 mg SL Q6H PRN PRN Reason: NAUSEA/VOMITING Oxycodone/Acetaminophen (Percocet 5/325 Tab*) 1 tab PO Q6H PRN PRN Reason: PAIN Last Admin: 06/12/18 22:06 Dose: 1 tab Pharmacy Consult (Vancomycin Per Pharmacy*) 1 note FOLLOW UP .VANC PER PHARMACY [facility] Pharmacy Profile Note (Vancomycin Trough Check) 1 note FOLLOW UP 0530 ONE Stop: 06/15/18 05:31 Prochlorperazine (Compazine Tab*) 10 mg PO Q6H PRN PRN Reason: NAUSEA/VOMITING Sodium Chloride (Sodium Chloride 0.65% Nasal [place]*) 2 spray BOTH NARES Q6H PRN PRN Reason: dry nares Trimethoprim/Sulfamethoxazole (Bactrim Ds 800/160 Tab*) 1 tab PO MoWeFr [facility] Last Admin: 06/11/18 23:58 Dose: 1 tab Objective: [] Vital Signs Temp Pulse Resp BP Pulse Ox 99.1 F 133 25 114/72 96 06/14/18 08:00 06/14/18 09:00 06/14/18 09:00 06/14/18 09:00 06/14/18 09:00 HEENT: pale, cachectic dec BS BL, no wheezing tachy, RRR S1S2 mild distension no EDSON Neuro: answering questions. Laboratory Results - last 24 hr 06/13/18 06/13/18 06/13/18 10:20 14:58 20:53 WBC RBC Hgb Hct MCV MCH MCHC RDW Plt Count MPV Neut % (Auto) Lymph % (Auto) [place] % (Auto) Eos % (Auto) Baso % (Auto) Absolute Neuts (auto) Absolute Lymphs (auto) Absolute Monos (auto) Absolute Eos (auto) Absolute Basos (auto) Absolute Nucleated RBC Neutrophils % Lymphocytes % Monocytes % Eosinophils % Basophils % Nucleated RBC % Abs Neuts (Manual) Abs Lymphs (Manual) Abs Monocytes (Manual) Absolute Eos (Manual) Abs Basophils (Manual) Differential Comment Normal RBC Morphology Hypochromasia Sodium 166 H* 167 H* Potassium 3.6 3.4 L Chloride 129 H 130 H Carbon Dioxide 32 34 H Anion Gap 5 3 BUN 12 10 Creatinine 0.69 0.67 Est GFR ( Amer) 137.2 141.9 Est GFR (Non-Af Amer) 113.4 117.3 BUN/Creatinine Ratio 17.4 14.9 Glucose 192 H 227 H Calcium 9.0 8.8 TSH Urine Color Urine Appearance Urine pH Ur Specific [place] Urine Protein Urine Ketones Urine Blood Urine Nitrate Urine Bilirubin Urine Urobilinogen Ur Leukocyte Esterase Urine WBC (Auto) Urine RBC (Auto) Urine Bacteria Urine Osmolality 228 Urine Glucose 06/14/18 06/14/18 06/14/18 04:55 05:00 05:57 WBC 0.3 L RBC 2.32 L Hgb 7.3 L Hct 22 L MCV 96 H MCH 32 H MCHC 33 RDW 16 H Plt Count 23 L D MPV 8.1 Neut % (Auto) Not Reportable Lymph % (Auto) Not Reportable [place] % (Auto) Not Reportable Eos % (Auto) Not Reportable Baso % (Auto) Not Reportable Absolute Neuts (auto) 0.1 L Absolute Lymphs (auto) Not Reportable Absolute Monos (auto) Not Reportable Absolute Eos (auto) Not Reportable Absolute Basos (auto) Not Reportable Absolute Nucleated RBC Not Reportable Neutrophils % 10 L Lymphocytes % 90 H Monocytes % 0 Eosinophils % 0 Basophils % 0 Nucleated RBC % Not Reportable Abs Neuts (Manual) 0 L Abs Lymphs (Manual) 0.3 L Abs Monocytes (Manual) 0 Absolute Eos (Manual) 0 Abs Basophils (Manual) 0 Differential Comment Normal RBC Morphology Not Reportable Hypochromasia 2+ Sodium 167 H* Potassium 3.4 L Chloride 128 H Carbon Dioxide 33 H Anion Gap 6 BUN 12 Creatinine 0.64 L Est GFR ( Amer) 149.6 Est GFR (Non-Af Amer) 123.6 BUN/Creatinine Ratio 18.8 Glucose 151 H Calcium 8.8 TSH 0.00 L Urine Color Yellow Urine Appearance Cloudy Urine pH 5.0 Ur Specific [place] 1.020 Urine Protein Negative Urine Ketones Negative Urine Blood 2+ A Urine Nitrate Negative Urine Bilirubin Negative Urine Urobilinogen Negative Ur Leukocyte Esterase Negative Urine WBC (Auto) Trace(0-5/hpf) Urine RBC (Auto) 2+(6-10/hpf) A Urine Bacteria Absent Urine Osmolality Urine Glucose Negative Assessment: []68 year old with 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 Treated with [id number]-R and now admission for sepsis and with hypernatremia. We discussed today continuing or stopping therapy. He had been DNR then wanted full code but told this am he wants to . He is at high risk of further deterioration and from Sepsis. We decided to continue current care with DDAVP, antibiotics and supportive medication but no escalation, DNR and DNI. Plan: []1. Pseudomonas Sepsis. Will continue Zoszyn and GCSF. He has slight increase in WBC today. 2. DI. Now on free water and DDAVP, will correct slowly. 3. COPD. Stable at this time. 4. [place]-pituitary insufficiency. - Now on DDAVP - Levothyroxan 50 mcg daily - Question of stress steroids or am Cortisol. 5. DNR/DNI, no pressers. 6. Will consider home wit hospice if recovers from acute event. time with patient and chart 40 min
--- NOTE | 2018-06-14 11:46 | CONS ---
CRITICAL CARE CONSULTATION REPORT: DATE OF CONSULT: 06/14/18 REASON FOR CONSULTATION: ICU admission. HISTORY OF PRESENT ILLNESS: The patient's history reviewed and current status evaluated. 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 The dixon ent also has a history of COPD with chronic hypercapnic respiratory failure. He was admitted to this hospital on 06/11/18 complaining of shortness of breath and was transferred to the intensive care it on 06/13/18 with multiple problems including hypernatremia (sodium of 168), possible sepsis (fever with an absolute neutrophil count of 0), and altered mental status (most likely from sepsis). The assessment and management of the problems are outlined below: 1. Hypernatremia. This is most likely the result of diabetes insipidus and will be treated with brooke mopressin. 2. Febrile neutropenia. There is no apparent infection at this time; however, the patient is being treated empirically with vancomycin and Zosyn. Cultures of blood and urine are pending. The patient is hemodynamically stable at the present time. Absolute neutrophil count was 0 on 06/11/18, 06/12/18 , and 06/13/18 and is 0.1 this morning. Platelet count is 23,000 and there is no evidence of abnorma l bleeding. 3. Chronic obstructive pulmonary disease. The patient is breathing comfortably at the present time on nebulized bronchodilators. Chest x-ray shows hyperinflation, but no infiltrate and CT angiogram o f the chest done on admission shows no pulmonary emboli, and there are emphysematous changes at the l suzy bases. 4. Hyperesthesia. The patient has diffuse hyperesthesia of unclear etiology. PROGNOSIS: Very guarded in this case. I have communicated my impressions to the oncology service (Kvng Ferris). CRITICAL CARE TIME: 60 minutes. [id number]/[facility] #: [id number]
[2018-06-14] MEDS ORDERED: Vancomycin(*) 1,000 MG in NS 0.9% 250 ML* 250 ML IVPB SCH (14:00)
[2018-06-14] MEDS ORDERED: Morphine INJ* 2 MG/ML 1 ML SYRINGE (TWO MG - NEW SYRINGE VERSION) ONE (15:53)
[2018-06-14] MEDS ORDERED: Morphine INJ* 2 MG/ML 1 ML SYRINGE (TWO MG - NEW SYRINGE VERSION) IV PRN (16:54)
[2018-06-14] MEDS ORDERED: Morphine INJ* 2 MG/ML 1 ML SYRINGE (TWO MG - NEW SYRINGE VERSION) IV ONE (16:55)
[2018-06-14] MEDS: Gabapentin CAP(*) 300 MG PO SCH (17:43)
[2018-06-14] MEDS ORDERED: LORazepam VIAL (for drip)* 100 MG in D5W 50 ML BAG* 50 ML IVPB SCH (19:00)
[2018-06-14] MEDS ORDERED: Morphine PCA 5 MG/ML * Titrate per Protocol PCA SCH (19:00)
[2018-06-14] MEDS ORDERED: Morphine VIAL* 10 MG/ML 1 ML VIAL IV ONE (19:00)
[2018-06-14] MEDS ORDERED: LORazepam INJ* 2 MG/ML 1 ML VIAL IV PUSH ONE (19:00)
[2018-06-14 19:55] VITALS: BP 112/69
--- NOTE | 2018-06-14 21:10 | PN ---
Progress Note - Progress Note Date of Service: 06/14/18 Note: At request of patient and his family, comfort measures were instituted using IV morphine and ativan. All meds were discontinued, including oxygen. Patient appears comfortable on the morphine/ativan regimen. Oncology (Dr. Smart) aware of the situation.
[2018-06-14] MEDS ORDERED: Morphine VIAL* 10 MG/ML 1 ML VIAL IV PRN (21:14)
--- NOTE | 2018-06-15 01:11 | PN ---
Progress Note - Progress Note Date of Service: 06/15/18 Note: Patient at 0034. No heart sounds or spontaneous respirations. Patient' s family are all at the bedside. Patient was on comfort measures with an expected passing this evening. All questions answered. certificate will be completed online.
[2018-06-15] MEDS ORDERED: Vancomycin Trough Check NOTE FOLLOW UP ONE (05:30)
== END 2018-06-15 00:34 | disposition expired | DRG 872 ==
LOC: ED 15:20 → MEDTELE 21:08 → ICU 06-13 08:28
PROVIDERS: ADMIT Hospitalist; ATTEND Pediatrics
DX: A41.52 Sepsis due to Pseudomonas (principal); C79.31 Secondary malignant neoplasm of brain; J96.12 Chronic respiratory failure with hypercapnia; B00.2 Herpesviral gingivostomatitis and pharyngotonsillitis; C83.31 Diffuse large B-cell lymphoma, lymph nodes of head, face, and neck; E87.0 Hyperosmolality and hypernatremia; E23.0 Hypopituitarism; I48.91 Unspecified atrial fibrillation; I10 Essential (primary) hypertension; K21.9 Gastro-esophageal reflux disease without esophagitis; G43.909 Migraine, unspecified, not intractable, without status migrainosus; I77.819 Aortic ectasia, unspecified site; J43.9 Emphysema, unspecified; M10.9 Gout, unspecified; E03.9 Hypothyroidism, unspecified; D69.6 Thrombocytopenia, unspecified; R20.3 Hyperesthesia; K13.79 Other lesions of oral mucosa; Z66 Do not resuscitate; D70.3 Neutropenia due to infection; Z88.1 Allergy status to other antibiotic agents; Z88.5 Allergy status to narcotic agent; Z72.89 Other problems related to lifestyle; Z80.7 Family history of other malignant neoplasms of lymphoid, hematopoietic and related tissues; Z80.8 Family history of malignant neoplasm of other organs or systems; Z82.49 Family history of ischemic heart disease and other diseases of the circulatory system; Z88.8 Allergy status to other drugs, medicaments and biological substances; Z80.0 Family history of malignant neoplasm of digestive organs; Z87.891 Personal history of nicotine dependence; Z92.21 Personal history of antineoplastic chemotherapy; Z89.022 Acquired absence of left finger(s)
CPT/HCPCS: 36415; 71045; 71275; 74177; 80048; 80053; 81003; 81015; 83605; 83735; 83880; 83935; 84300; 84439; 84443; 84481; 84484; 85025; 85060; 85610; 85730; 87040; 87077; 87086; 87186; 87205; 93005; 99233; 99285; A9270-GY; J0133; J2060; J2270; J2543; J2597; J3370; J3480; J3490; Q5101; Q9967